=== PATIENT | male | born 1955 | race Caucasian/White ===

== ENCOUNTER 2017-01-22 16:23 | Emergency (ER) | payer OTHER ==
[2017-01-22 16:33] VITALS: O2SAT 94
[2017-01-22] MEDS ORDERED: Hydromorphone 1 mg/ml Ampule IM ONE (16:54)
[2017-01-22] MEDS ORDERED: Adacel Vial IM ONE ×2 (16:54→16:59)
[2017-01-22] MEDS ORDERED: Hydromorphone 1 mg/ml Ampule ONE (16:59)
--- NOTE | 2017-01-22 17:08 | ERPHSYRPT ---
- History of Present Illness Time Seen by Provider: 01/22/17 16:26 Source: patient Patient Subjective Stated Complaint: PT REPORTS WAS ON A STEP STOOL WHEN HE FELL OFF TRYING TO SCREW IN A LIGHTBULB-REPORTS PAIN TO LEFT KNEE ET LOWER LEG- DENIES HITTING HEAD-DENEIS LOC Triage Nursing Assessment: PT PINK WARM ET DRY-SEVERAL SORES NOTED TO LOWER LEGS -SUPERFICIAL ABRASION NOTED TO LEFT KNEE WITH BLEEDING CONTROLLED DIRECTOR OF MIDWIFERY/STAFF MIDWIFE-SWELLING NOTED Physician History: CC: fell Hx: 61 y/o patient of PIERRE Thomas. He fell on short ladder working on [employer] fan. Hurt left knee and leg. No LOC. No neck or back pain. He has hx of arthritis. Unsure last tetanus vaccine. No chest pain, shortness of breath, or abd pain. No N/T/W. Occurred: just prior to arrival Loss of Consciousness: no loss of consciousness Severity of Pain-Max: moderate Severity of Pain-Current: moderate Allergies/Adverse Reactions: No Known Drug Allergies Allergy (Unverified 01/22/17 16:28) Home Medications: Insulin Glargine [Lantus Insulin] 25 unit SQ HS 01/22/17 [History] Lisinopril 10 mg [Zestril 10 MG] 0 mg PO DAILY 01/22/17 [History] Metformin HCl [Glucophage] 1,000 mg PO BID 01/22/17 [History] Pregabalin [Lyrica] 50 mg PO TID 01/22/17 [History] Hx Tetanus, Diphtheria Vaccination/Date Given: No Hx Influenza Vaccination/Date Given: Yes Hx Pneumococcal Vaccination/Date Given: No Immunizations Up to Date: Yes - Review of Systems Constitutional: No Symptoms Respiratory: No Dyspnea Cardiac: No Chest Pain, No Syncope Abdominal/Gastrointestinal: No Abdominal Pain, No Nausea, No Vomiting Musculoskeletal: Joint Pain (left knee), No Back Pain, No Neck Pain Skin: No Rash Neurological: No Focal Weakness, No Headache, No Parasthesia All Other Systems: Reviewed and Negative - Past Medical History Pertinent Past Medical History: Yes Cardiac History: Hypertension Endocrine Medical History: Diabetes Type II - Past Surgical History Past Surgical History: No - Social History Smoking Status: Never smoker Exposure to second hand smoke: No Drug Use: none Patient Lives Alone: No - Nursing Vital Signs Nursing Vital Signs: Initial Vital Signs Temperature 97.7 F Temperature Source Oral Pulse Rate 106 Respiratory Rate 20 Blood Pressure [Right Arm] 139/73 Pain Intensity 9 - [place] Coma Score Best Eye Response (Daysi): (4) open spontaneously Best Verbal Response ([place]): (5) oriented Best Motor Response (Daysi): (6) obeys commands Daysi Total: 15 - Physical Exam General Appearance: alert Head Injury: no evidence of injury Eye Exam: PERRL/EOMI ENT Exam: airway nml Neck Exam: supple, No limited range of motion, No mid-line tenderness Respiratory/Chest Exam: normal breath sounds, No chest tenderness Cardiovascular Exam: normal heart sounds, regular rate/rhythm Gastrointestinal Exam: soft, No tenderness, No distention Extremity Exam: tenderness (left knee, patella, and prox lower leg. No hip, arm , or ankle tenderness.) Neurologic Exam: alert, oriented x 3, cooperative, sensation nml, No motor deficits Skin Exam: warm, dry, other (abrasions left knee) SpO2 Interpretation: normal SpO2: 94 Oxygen Delivery: Room Air - Course Nursing assessment & vital signs reviewed: Yes - Radiology Exams left knee/lower leg X-ray Interpretation: Reviewed by me, No Fracture Ordered Tests: Active Orders 24 hr Category Date Time Status Silas Bandage Application -[facility] STAT Care 01/22/17 17:27 Active Wound Care STAT Care 01/22/17 16:54 Active KNEE (3 VIEWS) Stat Exams 01/22/17 16:55 Ordered LOWER LEG Stat Exams 01/22/17 16:55 Ordered Medication Summary Discontinued Medications Generic Name Dose Route Start Last Admin Trade Name Freq PRN Reason Stop Dose Admin Diphtheria/Tetanus/Acell Pertussis 0.5 ml 01/22/17 16:54 01/22/17 17:03 Adacel Vial IM 01/22/17 16:55 0.5 ml .ONCE ONE Administration Diphtheria/Tetanus/Acell Pertussis Confirm 01/22/17 16:59 Adacel Vial Administered 01/22/17 17:00 Dose 0.5 ml IM .STK-MED ONE Hydromorphone HCl 1 mg 01/22/17 16:54 01/22/17 17:03 Hydromorphone 1 Mg/Ml Ampule IM 01/22/17 16:55 1 mg STAT ONE Administration Hydromorphone HCl Confirm 01/22/17 16:59 Hydromorphone 1 Mg/Ml Ampule Administered 01/22/17 17:00 Dose 1 mg .ROUTE .STK-MED ONE - Progress Progress Note: 01/22/17 17:28 He has walker and cane at home. Will use silas, ice, rest. Instr given. Rx norco as he has kidney disease. Counseled pt/family regarding: diagnosis, need for follow-up, rad results - Departure Time of Disposition: 17:28 Departure Disposition: Home Clinical Impression: Contusion of left knee Qualifiers: Encounter type: initial encounter Qualified Code(s): S80.02XA - Contusion of left knee, initial encounter Fall from ladder Qualifiers: Encounter type: initial encounter Qualified Code(s): W11.XXXA - Fall on and from ladder, initial encounter Condition: Stable Critical Care Time: No Referrals: MILAN THOMAS [Primary Care Provider] - Instructions: Prevent Falls, Contusion Additional Instructions: Keep abrasion clean and dry. Ice packs off and on. Silas wrap left knee. Use walker or cane. Follow up with PIERRE Thomas. No driving while taking norco. Stay with family today. Rx norco for pain. Prescriptions: Hydrocodone Bit/Acetaminophen [[place] 5-325 Tablet] 1 each PO Q6H PRN PRN #20 tablet PRN Reason: Pain
[2017-01-22 17:30] VITALS: BP 141/69; PULSE 100
--- NOTE | 2017-01-22 21:31 | XRAY ---
Indication: Pain following fall. Comparison: None 4 views of the left knee demonstrates minimal medial degenerative joint space narrowing/spurring. Patellofemoral articulation symmetric. No other bony, articular, or soft tissue abnormalities.
--- NOTE | 2017-01-22 21:33 | XRAY ---
Indication: Pain following fall. Comparison: None 2 views of the left lower leg demonstrates faint vascular calcifications and multiple plantar foot foreign bodies. No other bony, articular, or soft tissue abnormalities.
== END 2017-01-22 17:35 | disposition home or self-care (01) ==
LOC: ED 16:23
DX: S80.02XA Contusion of left knee, initial encounter (principal); W11.XXXA Fall on and from ladder, initial encounter; M25.562 Pain in left knee; S80.212A Abrasion, left knee, initial encounter; I10 Essential (primary) hypertension; E11.9 Type 2 diabetes mellitus without complications; Z79.84 Long term (current) use of oral hypoglycemic drugs; Z79.4 Long term (current) use of insulin
CPT/HCPCS: 73562; 73590; 90471; 90715; 96372; 99284; J1170

== ENCOUNTER 2018-05-04 22:36 | Emergency (ER) | payer OTHER ==
[2018-05-04 23:01] VITALS: O2SAT 96
--- NOTE | 2018-05-04 23:14 | ERPHSYRPT ---
- History of Present Illness Time Seen by Provider: 05/04/18 23:00 Historian: patient, family Patient Subjective Stated Complaint: pain in abdomen that radiates to the right side Triage Nursing Assessment: Pt c/o of pain in upper medial abdomen which radiates to the upper and lower right quadrants with more pain in the lower quadrant with palpation, denies any bowel issues, vomited x2, BP 162/97, rates pain 10 Physician History: 62 y/o iddm white male presents with mid abd pain which radiates to both upper and lower quadrants. right lower quadrant most pain. pt vomited twice. pt ate chicken livers at approx 1300 on 05/04/18. pt has no h/o abd surgeries. Timing/Duration: today Activities at Onset: none Quality: sharpness Abdominal Pain Onset Location: RUQ, RLQ, periumbilical Severity of Pain-Max: moderate Severity of Pain-Current: moderate Modifying Factors: Improves With: nothing, vomiting Associated Symptoms: loss of appetite, nausea, vomiting Allergies/Adverse Reactions: No Known Drug Allergies Allergy (Verified 05/04/18 23:01) Home Medications: Insulin Glargine [Lantus Insulin] 20 unit SQ HS 01/22/17 [History] Lisinopril 10 mg [Zestril 10 MG] 0 mg PO DAILY 01/22/17 [History] Metformin HCl [Glucophage] 1,000 mg PO BID 01/22/17 [History] Simvastatin 20Mg [Zocor 20Mg] 20 mg PO DAILY 05/04/18 [History] Hx Tetanus, Diphtheria Vaccination/Date Given: No Hx Influenza Vaccination/Date Given: Yes Hx Pneumococcal Vaccination/Date Given: No - Review of Systems Constitutional: No Symptoms, No Fever, No Chills Eyes: No Symptoms Ears, Nose, & Throat: No Symptoms Respiratory: No Symptoms, No Cough, No Dyspnea, No Stridor, No Wheezing Cardiac: No Symptoms Abdominal/Gastrointestinal: Abdominal Pain, Nausea, Vomiting, Appetite Changes, No Diarrhea Genitourinary Symptoms: No Symptoms, No Dysuria, No Frequency, No Hematuria Musculoskeletal: No Symptoms Skin: No Symptoms Neurological: No Symptoms, No Dizziness, No Focal Weakness, No Gait Changes Psychological: No Symptoms Endocrine: No Symptoms, No Polydipsia Hematologic/Lymphatic: No Symptoms Immunological/Allergic: No Symptoms All Other Systems: Reviewed and Negative - Past Medical History Pertinent Past Medical History: Yes Neurological History: No Pertinent History ENT History: No Pertinent History Cardiac History: High Cholesterol, Hypertension Respiratory History: No Pertinent History Endocrine Medical History: Diabetes Type II Musculoskeletal History: No Pertinent History GI Medical History: No Pertinent History History: No Pertinent History Psycho-Social History: No Pertinent History Male Reproductive Disorders: No Pertinent History - Past Surgical History Past Surgical History: No Neuro Surgical History: No Pertinent History Cardiac: No Pertinent History Respiratory: No Pertinent History Gastrointestinal: No Pertinent History Genitourinary: No Pertinent History Musculoskeletal: No Pertinent History Male Surgical History: No Pertinent History - Social History Smoking Status: Current every day smoker How long have you smoked: since 14 y Exposure to second hand smoke: No Drug Use: none Patient Lives Alone: No - Nursing Vital Signs Nursing Vital Signs: Initial Vital Signs Temperature 97.8 F 05/04/18 22:52 Pulse Rate 96 H 05/04/18 22:52 Blood Pressure 162/97 05/04/18 22:52 O2 Sat by Pulse Oximetry 96 05/04/18 22:52 Pain Scale Pain Intensity 7 - Physical Exam General Appearance: mild distress, alert, anxiety Eye Exam: PERRL/EOMI, eyes nml inspection Ears, Nose, Throat Exam: normal ENT inspection Neck Exam: normal inspection, non-tender, supple, full range of motion Respiratory Exam: normal breath sounds, lungs clear, airway intact, No chest tenderness, No respiratory distress, No wheezing, No stridor Cardiovascular Exam: regular rate/rhythm, normal heart sounds, normal peripheral pulses Gastrointestinal/Abdomen Exam: soft, normal bowel sounds, tenderness, guarding, No distention, No rebound Rectal Exam: deferred Back Exam: normal inspection Extremity Exam: normal inspection Neurologic Exam: alert, oriented x 3, cooperative, biological scientist II-XII nml as tested, normal mood/affect, nml cerebellar function Skin Exam: normal color, warm, dry Lymphatic Exam: No adenopathy SpO2 Interpretation: normal SpO2: 96 Oxygen Delivery: Room Air - Course Nursing assessment & vital signs reviewed: Yes Ordered Tests: Active Orders 24 hr Category Date Time Status ABDOMEN AND PELVIS W CONTRAST [CT] Stat Exams 05/04/18 23:17 Taken AMYLASE Stat Lab 05/04/18 23:20 Completed CBC W DIFF Stat Lab 05/04/18 23:20 Completed CMP Stat Lab 05/04/18 23:20 Completed CULTURE,URINE Stat Lab 05/04/18 23:35 Received LIPASE Stat Lab 05/04/18 23:20 Completed Lactic Acid Stat Lab 05/04/18 23:20 Completed UA W/ MICROSCOPIC Stat Lab 05/04/18 23:35 Completed Medication Summary Discontinued Medications Generic Name Dose Route Start Last Admin Trade Name Luis Eq PRN Reason Stop Dose Admin Hydromorphone HCl 0.5 mg 05/04/18 23:17 05/04/18 23:28 Hydromorphone 1 Mg/Ml Ampule IV 05/04/18 23:18 0.5 mg STAT ONE Administration Hydromorphone HCl Confirm 05/04/18 23:26 Hydromorphone 1 Mg/Ml Ampule Administered 05/04/18 23:27 Dose 1 mg .ROUTE .STK-MED ONE Sodium Chloride 1,000 mls @ 999 mls/hr 05/04/18 23:17 05/04/18 23:27 Sodium Chloride 0.9% 1000 Ml IV 05/05/18 00:17 999 mls/hr .Q1H1M STA Administration Sodium Chloride Confirm 05/04/18 23:26 Sodium Chloride 0.9% 1000 Ml Administered 05/04/18 23:27 Dose 1,000 mls @ ud .ROUTE .STK-MED ONE Ondansetron HCl 4 mg 05/04/18 23:17 05/04/18 23:28 Zofran 4 Mg/2 Ml Vial IV 05/04/18 23:18 4 mg STAT ONE Administration Ondansetron HCl Confirm 05/04/18 23:25 Zofran 4 Mg/2 Ml Vial Administered 05/04/18 23:26 Dose 4 mg .ROUTE .STK-MED ONE Lab/Rad Data: Laboratory Result Diagrams 05/04/18 23:20 05/04/18 23:20 Laboratory Results 05/04/18 05/04/18 05/04/18 Range/Units 23:35 23:20 23:20 WBC (4.0-10.5) K/mm3 RBC (4.1-5.6) M/mm3 Hgb (12.5-18.0) gm/dl Hct (42-50) % MCV (78-100) fl MCH (26-32) pg MCHC (32-36) g/dl RDW (11.5-14.0) % Plt Count (150-450) K/mm3 MPV (6-9.5) fl Gran % (36.0-66.0) % Eos # (Auto) (0-0.5) Absolute Lymphs (auto) (1.0-4.6) Absolute Monos (auto) (0.0-1.3) Lymphocytes % (24.0-44.0) % Monocytes % (0.0-12.0) % Eosinophils % (0.00-5.0) % Basophils % (0.0-0.4) % Absolute Granulocytes (1.4-6.9) Basophils # (0-0.4) Sodium 142 (137-145) mmol/L Potassium 4.0 (3.5-5.1) mmol/L Chloride 106 (98-107) mmol/L Carbon Dioxide 28 (22-30) mmol/L Anion Gap 12.5 (5-15) MEQ/L BUN 14 (9-20) mg/dL Creatinine 0.57 L (0.66-1.25) mg/dL Estimated GFR > 60.0 ML/MIN Glucose 149 H (74-106) mg/dL Lactic Acid 1.1 (0.4-2.0) Calcium 9.1 (8.4-10.2) mg/dL Total Bilirubin 0.40 (0.2-1.3) mg/dL AST 15 L (17-59) U/L ALT 16 (0-50) U/L Alkaline Phosphatase 126 (38-126) U/L Serum Total Protein 5.9 L (6.3-8.2) g/dL Albumin 3.5 (3.5-5.0) g/dL Amylase 37 (30-110) U/L Lipase 95 (23-300) U/L Ur Collection Type VOID Urine Color YELLOW (YELLOW) Urine Appearance CLEAR (CLEAR) Urine pH 6.0 (5-6) Ur Specific [place] 1.020 (1.005-1.025) Urine Protein 500 (Negative) Urine Ketones NEGATIVE (NEGATIVE) Urine Blood 50 (0-5) Neymar/ul Urine Nitrite NEGATIVE (NEGATIVE) Urine Bilirubin NEGATIVE (NEGATIVE) Urine Urobilinogen NORMAL (0-1) mg/dL Ur Leukocyte Esterase NEGATIVE (NEGATIVE) Urine Microscopic RBC 2-5 (0-2) /HPF Urine Microscopic WBC 0-2 (0-5) /HPF Urine Bacteria RARE (NEGATIVE) /HPF Hyaline Casts 0-2 (0-2) /LPF Urine Mucus SLIGHT (NEGATIVE) /HPF Urine Culture Reflexed YES (NO) Urine Glucose NEGATIVE (NEGATIVE) mg/dL Specimen Received 05/04 1150 05/04/18 Range/Units 23:20 WBC 9.3 (4.0-10.5) K/mm3 RBC 4.69 (4.1-5.6) M/mm3 Hgb 13.9 (12.5-18.0) gm/dl Hct 41.1 L (42-50) % MCV 87.6 (78-100) fl MCH 29.6 (26-32) pg MCHC 33.8 (32-36) g/dl RDW 14.0 (11.5-14.0) % Plt Count 197 (150-450) K/mm3 MPV 11.7 H (6-9.5) fl Gran % 82.5 H (36.0-66.0) % Eos # (Auto) 0.06 (0-0.5) Absolute Lymphs (auto) 1.08 (1.0-4.6) Absolute Monos (auto) 0.48 (0.0-1.3) Lymphocytes % 11.6 L (24.0-44.0) % Monocytes % 5.2 (0.0-12.0) % Eosinophils % 0.6 (0.00-5.0) % Basophils % 0.1 (0.0-0.4) % Absolute Granulocytes 7.69 H (1.4-6.9) Basophils # 0.01 (0-0.4) Sodium (137-145) mmol/L Potassium (3.5-5.1) mmol/L Chloride (98-107) mmol/L Carbon Dioxide (22-30) mmol/L Anion Gap (5-15) MEQ/L BUN (9-20) mg/dL Creatinine (0.66-1.25) mg/dL Estimated GFR ML/MIN Glucose (74-106) mg/dL Lactic Acid (0.4-2.0) Calcium (8.4-10.2) mg/dL Total Bilirubin (0.2-1.3) mg/dL AST (17-59) U/L ALT (0-50) U/L Alkaline Phosphatase (38-126) U/L Serum Total Protein (6.3-8.2) g/dL Albumin (3.5-5.0) g/dL Amylase (30-110) U/L Lipase (23-300) U/L Ur Collection Type Urine Color (YELLOW) Urine Appearance (CLEAR) Urine pH (5-6) Ur Specific [place] (1.005-1.025) Urine Protein (Negative) Urine Ketones (NEGATIVE) Urine Blood (0-5) Neymar/ul Urine Nitrite (NEGATIVE) Urine Bilirubin (NEGATIVE) Urine Urobilinogen (0-1) mg/dL Ur Leukocyte Esterase (NEGATIVE) Urine Microscopic RBC (0-2) /HPF Urine Microscopic WBC (0-5) /HPF Urine Bacteria (NEGATIVE) /HPF Hyaline Casts (0-2) /LPF Urine Mucus (NEGATIVE) /HPF Urine Culture Reflexed (NO) Urine Glucose (NEGATIVE) mg/dL Specimen Received - Progress Progress Note: 05/05/18 01:52 pt states his pain is better but still present. reviewed ct scan results of possible early, mild acute pancreatitis Counseled pt/family regarding: lab results, diagnosis, need for follow-up, rad results - Departure Time of Disposition: 01:54 Departure Disposition: Home Clinical Impression: Acute pancreatitis Condition: Stable Critical Care Time: No Referrals: LIZET SANABRIA [Primary Care Provider] - Additional Instructions: clear liquids for 24 hours. follow up with primary doctor for further management. return to ER if symptos worsen. avoid fatty, greasy, and spicy foods Prescriptions: Ondansetron HCl [Zofran] 4 mg PO TID PRN #10 tablet PRN Reason: Nausea/Vomiting
[2018-05-04] MEDS ORDERED: Hydromorphone 1 mg/ml Ampule IV ONE (23:17)
[2018-05-04] MEDS ORDERED: Sodium Chloride 0.9% 1000 ML 1,000 ML IV STA (23:17)
[2018-05-04] MEDS ORDERED: Zofran 4 MG/2 ML VIAL IV ONE (23:17)
[2018-05-04] MEDS ORDERED: Zofran 4 MG/2 ML VIAL ONE (23:25)
[2018-05-04] MEDS ORDERED: Sodium Chloride 0.9% 1000 ML 1,000 ML ONE (23:26)
[2018-05-04] MEDS ORDERED: Hydromorphone 1 mg/ml Ampule ONE (23:26)
[2018-05-04 23:29] LABS: BASOPHIL % 0.1 % (0.0-0.4); Basophil (Absolute #) 0.01 (0-0.4); Eosinophil % 0.6 % (0.00-5.0); Eosinophil (Absolute #) 0.06 (0-0.5); Granulocyte Absolute (ANC) 7.69 (1.4-6.9); Granulocytes % 82.5 % (36.0-66.0); Hematocrit 41.1 % (42-50); Hemoglobin 13.9 gm/dl (12.5-18.0); Lymphocyte (Absolute #) 1.08 (1.0-4.6); Lymphocytes % 11.6 % (24.0-44.0); Mean Cell Volume 87.6 fl (78-100); Mean Corpuscular Hemoglobin 29.6 pg (26-32); Mean Corpuscular Hgb Concent. 33.8 g/dl (32-36); Mean Platelet Volume 11.7 fl (6-9.5); Monocyte (Absolute #) 0.48 (0.0-1.3); Monocytes % 5.2 % (0.0-12.0); Platelet Count 197 K/mm3 (150-450); Red Blood Count 4.69 M/mm3 (4.1-5.6); White Blood Count 9.3 K/mm3 (4.0-10.5)
[2018-05-04 23:41] LABS: ALBUMIN 3.5 g/dL (3.5-5.0); ALKALINE PHOSPHATASE 126 U/L (38-126); AMYLASE 37 U/L (30-110); ANION GAP 12.5 MEQ/L (5-15); BLOOD UREA NITROGEN 14 mg/dL (9-20); CHLORIDE 106 mmol/L (98-107); Calcium 9.1 mg/dL (8.4-10.2); Carbon Dioxide 28 mmol/L (22-30); Creatinine 1 0.57 mg/dL (0.66-1.25); Glucose 149 mg/dL (74-106); LIPASE 95 U/L (23-300); SGOT/AST 15 U/L (17-59); SGPT/ALT 16 U/L (0-50); SODIUM 142 mmol/L (137-145); Total Protein 5.9 g/dL (6.3-8.2)
[2018-05-04 23:54] LABS: Appearance CLEAR (CLEAR); Bilirubin NEGATIVE (NEGATIVE); Glucose NEGATIVE (NEGATIVE); Ketones NEGATIVE (NEGATIVE); Leukocyte Esterase NEGATIVE (NEGATIVE); Nitrite NEGATIVE (NEGATIVE); Urobilinogen NORMAL mg/dL (0-1)
[2018-05-04 23:55] LABS: Blood 50 Ery/ul (0-5); Mucus SLIGHT /HPF (NEGATIVE); Protein,Urine Dip 500 (Negative)
[2018-05-04 23:56] LABS: Bacteria RARE /HPF (NEGATIVE); WBC 0-2 /HPF (0-5)
[2018-05-04 23:57] LABS: Hyaline Casts 0-2 /LPF (0-2)
[2018-05-05 01:53] VITALS: BP 162/96; PULSE 95
[2018-05-05] MEDS ORDERED: Hydromorphone 1 mg/ml Ampule IV ONE (01:53)
[2018-05-05] MEDS ORDERED: Hydromorphone 1 mg/ml Ampule ONE (02:00)
--- NOTE | 2018-05-05 09:11 | XRAY ---
Indication: Right abdominal pain, nausea, and vomiting. Multiple contiguous axial images obtained through the abdomen and pelvis using 80 cc Isovue 370 contrast only. Comparison: None. Lung bases demonstrates mild bibasilar dependent atelectasis and right base calcified granuloma. Heart is not enlarged. Noncontrasted stomach and bowel loops appear nonobstructed. Normal appendix. No free fluid/air. There is mild diffuse scattered colonic fecal debris throughout. Spleen is enlarged measuring 14.3 cm in greatest axial dimension with calcified splenic granuloma. The head of the pancreas demonstrates minimal peripancreatic stranding concerning for pancreatitis. Remaining pancreatic head and uncinate process demonstrates a few punctate calcifications presumed from chronic pancreatitis. Remaining liver, gallbladder, pancreas, spleen, adrenal glands, kidneys, ureters, bladder, and aorta appear unremarkable. Mild aortoiliac calcifications. No AAA or pathologic retroperitoneal lymphadenopathy. Osseous structures intact with mild/moderate multilevel degenerative spondylosis. Small bilateral fatty inguinal hernias. Impression: 1. CT features favoring mild/early pancreatitis. No complications. A few chronic pancreatitis calcifications. 2. Fecal stasis without obstruction. 3. Incidental splenomegaly, small bilateral fatty inguinal hernias, and evidence for old granulomatous disease. Comment: Preliminary interpretation was made by [facility]. No critical discrepancy. CT DI 23.68
== END 2018-05-05 02:16 | disposition home or self-care (01) ==
LOC: ED 22:36
DX: K85.90 Acute pancreatitis without necrosis or infection, unspecified (principal); R11.2 Nausea with vomiting, unspecified; Z79.899 Other long term (current) drug therapy; E11.9 Type 2 diabetes mellitus without complications; Z79.4 Long term (current) use of insulin
CPT/HCPCS: 36415; 74177; 80053; 81000; 82150; 83605; 83690; 85025; 87086; 96360; 96374; 96375; 96376; 99284; J1170; J2405

== ENCOUNTER 2018-06-02 18:43 | Emergency (ER) | payer OTHER ==
[2018-06-02 18:57] VITALS: O2SAT 97
[2018-06-02] MEDS ORDERED: Adacel Vial IM ONE ×2 (19:06→19:11)
[2018-06-02] MEDS ORDERED: BACIGUENT PACKET TP ONE (19:07)
[2018-06-02] MEDS ORDERED: CLEOCIN 150 MG CAPSULE PO ONE (19:07)
[2018-06-02] MEDS ORDERED: BACIGUENT PACKET ONE (19:10)
[2018-06-02] MEDS ORDERED: CLEOCIN 150 MG CAPSULE ONE (19:10)
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
[2018-06-02 19:46] VITALS: BP 135/71; PULSE 85
== END 2018-06-02 19:43 | disposition home or self-care (01) ==
LOC: ED 18:43
DX: T25.221A Burn of second degree of right foot, initial encounter (principal); L03.115 Cellulitis of right lower limb; T52.0X1A Toxic effect of petroleum products, accidental (unintentional), initial encounter
CPT/HCPCS: 90471; 90715; 99283; A9270-GY

== ENCOUNTER 2018-10-06 12:36 | Inpatient (IN) | payer OTHER ==
[2018-10-06] MEDS ORDERED: DUONEB 0.5-3 MG/3 ml Neb IH ONE ×2 (12:46→12:51)
--- NOTE | 2018-10-06 12:51 | ERPHSYRPT ---
- History of Present Illness Time Seen by Provider: 10/06/18 12:48 Source: patient Exam Limitations: no limitations Physician History: 63 y/o obese white male with h/o diabetes, cadz and htn presents to ED with over one month h/o coughing and soa. pt is a smoker of cigarettes and states he quit smoking 3 days ago. pt denies cp. he denies abd pain. Timing/Duration: intermittent (for a month) Activities at Onset: none Severity of Dyspnea-Max: mild Severity of Dyspnea-Current: mild Possible Cause: occasional episodes Modifying Factors: Improves With: activity, oxygen (improves) Associated Symptoms: cough, No chest pain/discomfort Allergies/Adverse Reactions: No Known Drug Allergies Allergy (Verified 10/06/18 13:37) Home Medications: Insulin Glargine [Lantus Insulin] 20 unit SQ HS 01/22/17 [History] Metformin HCl [Glucophage] 1,000 mg PO BID 01/22/17 [History] Simvastatin 20Mg [Zocor 20Mg] 20 mg PO DAILY 05/04/18 [History] Aspirin [Aspirin EC] 325 mg PO DAILY 10/06/18 [History] Carvedilol 12.5 mg [Coreg 12.5 mg] 12.5 mg PO BID 10/06/18 [History] Glipizide [Glipizide ER] 10 mg PO DAILY 10/06/18 [History] Hydrochlorothiazide 25 mg [hydroDIURIL 25 MG] 25 mg PO DAILY 10/06/18 [ History] Isosorbide Mononitrate 30 mg [Imdur 30 MG] 30 mg PO DAILY 10/06/18 [History ] Lisinopril [Zestril] 40 mg PO DAILY 10/06/18 [History] Hx Tetanus, Diphtheria Vaccination/Date Given: No Hx Influenza Vaccination/Date Given: Yes Hx Pneumococcal Vaccination/Date Given: No - Review of Systems Constitutional: No Symptoms Eyes: No Symptoms Ears, Nose, & Throat: No Symptoms Respiratory: Cough, Dyspnea Cardiac: No Symptoms, No Chest Pain, No Palpitations, No Syncope Abdominal/Gastrointestinal: No Symptoms, Abdominal Pain, Nausea, Vomiting, Diarrhea Genitourinary Symptoms: No Symptoms, No Dysuria, No Frequency, No Hematuria Musculoskeletal: No Symptoms Skin: No Symptoms Neurological: No Symptoms Psychological: No Symptoms - Past Medical History Pertinent Past Medical History: Yes Neurological History: No Pertinent History ENT History: No Pertinent History Cardiac History: High Cholesterol, Hypertension Respiratory History: No Pertinent History Endocrine Medical History: Diabetes Type II Musculoskeletal History: No Pertinent History GI Medical History: No Pertinent History History: No Pertinent History Psycho-Social History: No Pertinent History Male Reproductive Disorders: No Pertinent History - Past Surgical History Past Surgical History: Yes Neuro Surgical History: No Pertinent History Cardiac: No Pertinent History Respiratory: No Pertinent History Gastrointestinal: No Pertinent History Genitourinary: No Pertinent History Musculoskeletal: No Pertinent History Male Surgical History: No Pertinent History - Social History Smoking Status: Never smoker How long have you smoked: since 14 y Exposure to second hand smoke: No Drug Use: none Patient Lives Alone: No - Nursing Vital Signs Nursing Vital Signs: Initial Vital Signs Temperature 98.5 F 10/06/18 12:36 Pulse Rate 68 10/06/18 12:36 Respiratory Rate 28 H 10/06/18 12:36 Blood Pressure 107/64 10/06/18 12:36 O2 Sat by Pulse Oximetry 87 L 10/06/18 12:36 Pain Scale Pain Intensity 0 - Physical Exam General Appearance: mild distress, alert, obese Eye Exam: PERRL/EOMI, eyes nml inspection Ears, Nose, Throat Exam: hearing grossly normal Neck Exam: normal inspection, non-tender, supple, full range of motion Respiratory Exam: normal breath sounds, lungs clear, respiratory distress (mild) , airway intact, No chest tenderness, No accessory muscle use, No rhonchi, No wheezing, No stridor Cardiovascular/Chest Exam: normal heart sounds, regular rate/rhythm, murmur Abdominal/Gastrointestinal Exam: soft, normal bowel sounds, No tenderness, No guarding, No rebound Rectal Exam: not done Extremity Exam: non-tender, normal range of motion, normal inspection Neurologic Exam: alert, oriented x 3, cooperative, chair mechanic II-XII nml as tested Skin Exam: normal color, warm, dry Lymphatic Exam: No adenopathy SpO2 Interpretation: normal - Course Nursing assessment & vital signs reviewed: Yes Ordered Tests: Active Orders 24 hr Category Date Time Status Weaver Dobby Loom STAT Care 10/06/18 12:53 Active EKG-ER Only STAT Care 10/06/18 12:52 Active IV Insertion STAT Care 10/06/18 12:52 Active Pulse Oximetry (ED) STAT Care 10/06/18 12:52 Active CHEST 1 VIEW (PORTABLE) Stat Exams 10/06/18 12:53 Completed CHEST WITH CONTRAST [CT] Stat Exams 10/06/18 13:45 Completed CBC W DIFF Stat Lab 10/06/18 13:09 Completed CMP Stat Lab 10/06/18 13:09 Completed D-DIMER QUANTITATION Stat Lab 10/06/18 13:09 Completed NT PRO BNP Stat Lab 10/06/18 13:09 Completed PROTIME WITH INR Stat Lab 10/06/18 13:09 Completed TROPONIN Q3H Lab 10/06/18 13:09 Completed TROPONIN Q3H Lab 10/07/18 01:00 Ordered Peak Expiratory Flow Rate ONCE RT 10/06/18 12:52 Active Respiratory Nebulizer STAT RT 10/06/18 12:52 Completed Respiratory Therapy Assessment DAILY RT 10/06/18 12:52 Active Transfer Order Routine Transfer 10/06/18 Ordered Medication Summary Discontinued Medications Generic Name Dose Route Start Last Admin Trade Name Freq PRN Reason Stop Dose Admin Albuterol/Ipratropium Confirm 10/06/18 12:46 Duoneb 0.5-3 Mg/3 Ml Neb Administered 10/06/18 12:47 Dose 3 ml IH .STK-MED ONE Albuterol/Ipratropium 3 ml 10/06/18 12:51 10/06/18 12:48 Duoneb 0.5-3 Mg/3 Ml Neb IH 10/06/18 12:52 3 ml STAT ONE Administration Enoxaparin Sodium 120 mg 10/06/18 16:14 Enoxaparin Sodium SQ 10/06/18 16:15 STAT STA Methylprednisolone Sodium Succinate 125 mg 10/06/18 12:52 10/06/18 13:34 Solu-Medrol 125 Mg IV 10/06/18 12:53 125 mg STAT ONE Administration Methylprednisolone Sodium Succinate Confirm 10/06/18 13:33 Solu-Medrol 125 Mg Administered 10/06/18 13:34 Dose 125 mg .ROUTE .STK-MED ONE Lab/Rad Data: Laboratory Result Diagrams 10/06/18 13:09 10/06/18 13:09 Laboratory Results 12/27/18 12/27/18 12/27/18 Range/Units 13:09 13:09 13:09 WBC (4.0-10.5) K/mm3 RBC (4.1-5.6) M/mm3 Hgb (12.5-18.0) gm/dl Hct (42-50) % MCV (78-100) fl MCH (26-32) pg MCHC (32-36) g/dl RDW (11.5-14.0) % Plt Count (150-450) K/mm3 MPV (6-9.5) fl Gran % (36.0-66.0) % Eos # (Auto) (0-0.5) Absolute Lymphs (auto) (1.0-4.6) Absolute Monos (auto) (0.0-1.3) Lymphocytes % (24.0-44.0) % Monocytes % (0.0-12.0) % Eosinophils % (0.00-5.0) % Basophils % (0.0-0.4) % Absolute Granulocytes (1.4-6.9) Basophils # (0-0.4) PT 13.2 H (8.83-12.87) SECONDS INR 1.13 (0.8-3.0) D-Dimer 736 H* (215-500) ng/mL Sodium 143 (137-145) mmol/L Potassium 4.1 (3.5-5.1) mmol/L Chloride 103 (98-107) mmol/L Carbon Dioxide 31 H (22-30) mmol/L Anion Gap 14.0 (5-15) MEQ/L BUN 24 H (9-20) mg/dL Creatinine 0.90 (0.66-1.25) mg/dL Estimated GFR > 60.0 ML/MIN Glucose 91 (74-106) mg/dL Calcium 8.7 (8.4-10.2) mg/dL Total Bilirubin 0.40 (0.2-1.3) mg/dL AST 25 (17-59) U/L ALT 23 (0-50) U/L Alkaline Phosphatase 107 (38-126) U/L Troponin I < 0.012 (0.000-0.034) ng/mL NT-Pro-B Natriuret Pep 4560 H (0-900) pg/mL Serum Total Protein 6.6 (6.3-8.2) g/dL Albumin 3.5 (3.5-5.0) g/dL Slides for Path Review 10/06/18 Range/Units 13:09 WBC 4.9 (4.0-10.5) K/mm3 RBC 3.90 L (4.1-5.6) M/mm3 Hgb 11.1 L (12.5-18.0) gm/dl Hct 35.5 L (42-50) % MCV 91.0 (78-100) fl MCH 28.4 (26-32) pg MCHC 31.3 L (32-36) g/dl RDW 13.8 (11.5-14.0) % Plt Count 149 L (150-450) K/mm3 MPV 11.0 H (6-9.5) fl Gran % 81.3 H (36.0-66.0) % Eos # (Auto) 0.01 (0-0.5) Absolute Lymphs (auto) 0.54 L (1.0-4.6) Absolute Monos (auto) 0.35 (0.0-1.3) Lymphocytes % 11.1 L (24.0-44.0) % Monocytes % 7.2 (0.0-12.0) % Eosinophils % 0.2 (0.00-5.0) % Basophils % 0.2 (0.0-0.4) % Absolute Granulocytes 3.97 (1.4-6.9) Basophils # 0.01 (0-0.4) PT (8.83-12.87) SECONDS INR (0.8-3.0) D-Dimer (215-500) ng/mL Sodium (137-145) mmol/L Potassium (3.5-5.1) mmol/L Chloride (98-107) mmol/L Carbon Dioxide (22-30) mmol/L Anion Gap (5-15) MEQ/L BUN (9-20) mg/dL Creatinine (0.66-1.25) mg/dL Estimated GFR ML/MIN Glucose (74-106) mg/dL Calcium (8.4-10.2) mg/dL Total Bilirubin (0.2-1.3) mg/dL AST (17-59) U/L ALT (0-50) U/L Alkaline Phosphatase (38-126) U/L Troponin I (0.000-0.034) ng/mL NT-Pro-B Natriuret Pep (0-900) pg/mL Serum Total Protein (6.3-8.2) g/dL Albumin (3.5-5.0) g/dL Slides for Path Review YES - Progress Progress: improved, re-examined Air Movement: good Progress Note: 10/06/18 16:[address] chest-tiny nonoccludingright lower lobe pulmonary emboli. bilat interstitial alveolar opacities. L>R. spoke with dr. barnett covering for dr. joya. i reviewed pt hx, condition, lab , xray results. he accepts pt for admission. hold antibx for now, lotensin 10mg po daily, blood cultures if T>101 F Blood Culture(s) Obtained: No Antibiotics given: No Discussed with : Beth Will see patient in: hospital (full admit) Counseled pt/family regarding: lab results, diagnosis, rad results - Departure Time of Disposition: 16:13 Departure Disposition: In-patient Admission Clinical Impression: Pulmonary embolism, Pneumonitis, CHF (congestive heart failure) Condition: Stable Critical Care Time: Yes Critical Care Time(excluding separately billable procedures): 30-74 minutes Referrals: LIZET JOYA [Primary Care Provider] - Instructions: Heart Failure
[2018-10-06] MEDS ORDERED: solu-MEDROL 125 MG IV ONE (12:52)
[2018-10-06 13:12] LABS: BASOPHIL % 0.2 % (0.0-0.4); Basophil (Absolute #) 0.01 (0-0.4); Eosinophil % 0.2 % (0.00-5.0); Eosinophil (Absolute #) 0.01 (0-0.5); Granulocyte Absolute (ANC) 3.97 (1.4-6.9); Granulocytes % 81.3 % (36.0-66.0); Hematocrit 35.5 % (42-50); Hemoglobin 11.1 gm/dl (12.5-18.0); Lymphocyte (Absolute #) 0.54 (1.0-4.6); Lymphocytes % 11.1 % (24.0-44.0); Mean Corpuscular Hgb Concent. 31.3 g/dl (32-36); Monocyte (Absolute #) 0.35 (0.0-1.3); Monocytes % 7.2 % (0.0-12.0); Platelet Count 149 K/mm3 (150-450); Red Cell Distribution Width 13.8 % (11.5-14.0); White Blood Count 4.9 K/mm3 (4.0-10.5)
[2018-10-06 13:14] LABS: Mean Corpuscular Hemoglobin 28.4 pg (26-32)
[2018-10-06 13:18] LABS: INR 1.13 (0.8-3.0)
--- NOTE | 2018-10-06 13:22 | XRAY ---
Indication: Cough and congestion one month. Comparison: May 23, 2009. Portable apical lordotic chest less inflated today accentuating the cardiopulmonary structures. Stable right base calcified granuloma. No focal infiltrate, consolidation, or large effusion. Heart is not enlarged. Bony thorax intact again with mild degenerative changes. Impression: Nonacute underinflated chest with chronic features.
[2018-10-06 13:31] LABS: ALBUMIN 3.5 g/dL (3.5-5.0); ALKALINE PHOSPHATASE 107 U/L (38-126); BLOOD UREA NITROGEN 24 mg/dL (9-20); CHLORIDE 103 mmol/L (98-107); Calcium 8.7 mg/dL (8.4-10.2); Carbon Dioxide 31 mmol/L (22-30); Glucose 91 mg/dL (74-106); NT PRO BNP 4560 pg/mL (0-900); Potassium 4.1 mmol/L (3.5-5.1); SGOT/AST 25 U/L (17-59); SGPT/ALT 23 U/L (0-50); SODIUM 143 mmol/L (137-145); Total Protein 6.6 g/dL (6.3-8.2)
[2018-10-06] MEDS ORDERED: solu-MEDROL 125 MG ONE (13:33)
--- NOTE | 2018-10-06 14:53 | XRAY ---
Indication: Productive cough. Short of breath. Elevated d-dimer. Multiple contiguous axial images obtained through the chest using 100 cc Isovue 370 contrast and PE protocol. Comparison: None There is good opacification of the pulmonary arteries to include the lobar and segmental branches. Tiny nonoccluding pulmonary emboli seen in the right lower lobe branch. Heart is not enlarged. Aorta is minimally arteriosclerotic without aneurysm/dissection. Several small mediastinal lymph nodes, largest in the AP window measuring 1.3 x 2 cm. Subcarinal and right infrahilar calcified nodes. Examination of the lung parenchyma demonstrates patchy lower lobe interstitial alveolar opacities, left greater than right. Much lesser subtle patchy interstitial alveolar opacities in the right upper lobe. No effusion. Elsewhere bibasilar dependent atelectasis and right lower lobe calcified granulomas. Bony thorax intact with mild degenerative changes throughout the spine. Limited upper abdomen demonstrates mild fatty liver and splenic calcified granuloma. Impression: 1. Tiny nonoccluding right lower lobe pulmonary emboli. No distal infarct. 2. Bilateral interstitial alveolar opacities greatest in the left lower lobe as detailed. Rule out pneumonitis. 3. Multiple small mediastinal lymph nodes possibly reactive or related to old granulomatous disease as there is evidence elsewhere. 4. Fatty liver. CT DI 23.69
[2018-10-06 15:11] LABS: Slide Review 1 YES
[2018-10-06] MEDS ORDERED: ENOXAPARIN SODIUM SQ STA (16:14)
[2018-10-06] MEDS ORDERED: ENOXAPARIN SODIUM SQ ONE (16:45)
[2018-10-06] MEDS ORDERED: DUONEB 0.5-3 MG/3 ml Neb IH PRN (17:34)
[2018-10-06] MEDS: Lasix 40 MG/4 ML IV SCH (18:25)
[2018-10-06] MEDS: Lantus Insulin SQ SCH (21:30)
[2018-10-06] MEDS: COREG 12.5 MG PO SCH (21:30)
[2018-10-06] MEDS ORDERED: NON-FORMULARY ITEM (Metformin Hcl [Glucophage] 1,000 MG) PO SCH (22:00)
[2018-10-06] MEDS: Sodium Chloride 0.9% 10 ML FLUSH Syringe IV SCH (23:53)
[2018-10-07 05:49] LABS: BASOPHIL % 0.2 % (0.0-0.4); Basophil (Absolute #) 0.01 (0-0.4); Eosinophil (Absolute #) 0 (0-0.5); Granulocyte Absolute (ANC) 3.57 (1.4-6.9); Granulocytes % 83.2 % (36.0-66.0); Hematocrit 36.4 % (42-50); Hemoglobin 11.3 gm/dl (12.5-18.0); Lymphocyte (Absolute #) 0.44 (1.0-4.6); Lymphocytes % 10.3 % (24.0-44.0); Mean Platelet Volume 11.6 fl (6-9.5); Monocyte (Absolute #) 0.27 (0.0-1.3); Monocytes % 6.3 % (0.0-12.0); Platelet Count 150 K/mm3 (150-450); Red Cell Distribution Width 13.8 % (11.5-14.0); White Blood Count 4.3 K/mm3 (4.0-10.5)
[2018-10-07 05:55] LABS: Mean Corpuscular Hemoglobin 28.2 pg (26-32)
[2018-10-07 06:00] LABS: INR 1.13 (0.8-3.0)
[2018-10-07 06:15] LABS: ALBUMIN 3.5 g/dL (3.5-5.0); ALKALINE PHOSPHATASE 111 U/L (38-126); ANION GAP 12.5 MEQ/L (5-15); BLOOD UREA NITROGEN 33 mg/dL (9-20); CHLORIDE 100 mmol/L (98-107); Calcium 8.6 mg/dL (8.4-10.2); Carbon Dioxide 34 mmol/L (22-30); Creatinine 1 0.98 mg/dL (0.66-1.25); Glucose 146 mg/dL (74-106); NT PRO BNP 2910 pg/mL (0-900); Potassium 4.8 mmol/L (3.5-5.1); SGOT/AST 26 U/L (17-59); SGPT/ALT 22 U/L (0-50); SODIUM 141 mmol/L (137-145); Total Protein 6.8 g/dL (6.3-8.2)
[2018-10-07] MEDS: Sodium Chloride 0.9% 10 ML FLUSH Syringe IV SCH ×3 (06:21→21:49)
[2018-10-07] MEDS: Lasix 40 MG/4 ML IV SCH ×2 (06:28→18:16)
[2018-10-07] MEDS ORDERED: ENOXAPARIN SODIUM SQ SCH (07:00)
[2018-10-07] MEDS: Imdur 30 MG PO SCH (08:09)
[2018-10-07] MEDS: COREG 12.5 MG PO SCH ×2 (08:09→21:48)
[2018-10-07] MEDS: Glucotrol Xl 10 MG PO SCH (08:09)
[2018-10-07] MEDS: Lotensin 10 MG PO SCH (08:10)
[2018-10-07] MEDS: hydroDIURIL 25 MG PO SCH (08:10)
[2018-10-07] MEDS: ZOCOR 20MG PO SCH (08:10)
[2018-10-07] MEDS ORDERED: NON-FORMULARY ITEM (Lisinopril [Zestril] 40 MG) PO SCH (10:00)
[2018-10-07] MEDS ORDERED: Zestril 20 MG PO SCH (10:00)
[2018-10-07] MEDS ORDERED: Ecotrin 325 MG PO SCH (10:00)
--- NOTE | 2018-10-07 10:03 | XRAY ---
Indication: Pulmonary embolus. Two-dimensional sonogram and color Doppler imaging of the major venous vessels of the left and right leg was performed. Comparison: None No thrombus seen in the examined deep venous vessels of the left and right leg including greater saphenous veins. Veins demonstrate normal compressibility. Venous waveforms are normal with and without augmentation. Impression: Left and right legs negative for DVT.
[2018-10-07] MEDS: DUONEB 0.5-3 MG/3 ml Neb IH SCH ×3 (10:23→19:18)
--- NOTE | 2018-10-07 10:27 | HP ---
HISTORY OF PRESENT ILLNESS: this is a 63 y/o patient of mine who presented first to [facility] and then was directed to go to the ED. He reports he has had increasing cough and SOB. He reports he has been unable to sleep for the past 2 days, only sleeping about 4 hours. He reports his ribs have been sore and LLQ sore from coughing so much. His cough has been productive of sputum. He hasn't had any fevers. I recently saw him 09/27/18 and prescribed him Doxycycline 100 mg PO bid which he reports he took the 10 day course of this. He has a history of CAD and actually is scheduled to see a surgeon about a bypass. He had a cath on 07/2018 that revealed an 86% stenosis after the stent that is in his LAD. Dr. Taylor is his director of recruiting. He also had an echocardiogram done in August that Dr. Taylor ordered and read that was read as an aortic valve sclerosis without stenosis and the possibility of a vegetation that couldn't be excluded recommending a SUHA. I do not know if he has had that done yet. Again, Dr. Taylor is his director of recruiting and ordered the echo and read it. The patient is scheduled also to have his gallbladder taken out once his heart is take care of. The patient was put on an increasing amount of O2 overnight. He reports they did give him some breathing treatments. He doesn't have a history of chronic obstructive pulmonary disease or asthma, but has smoked pack a day since he was 14 years old. REVIEW OF SYSTEMS: He reports a little constipation. No diarrhea. No nausea. NO vomiting. His appetite was good. He ate his whole breakfast today. He reports lower extremity edema times the past 6 months. Otherwise, Review of Systems as noted in the HPI. PAST MEDICAL HISTORY: Cad, currently scheduled to see the cardiovascular surgeon about intervention. 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 PAST SURGICAL HISTORY: Umbilical hernia repair 30 years ago. Stent to his heart in 10/2008. SOCIAL HISTORY: He reports he sometimes lives at home with his and sometimes stays with a neighbor who is like family to him. He smoked a pack per day since he was 14. He is recently cutting back. He denies needing a nicotine patch. He reports he drinks alcohol occasionally and last drank last week. No history of alcohol withdrawal. No marijuana, cocaine, meth, or other illicit drug use. CURRENT MEDICATIONS: Please see the medication reconciliation for his medications which I reviewed. ALLERGIES: NKA. PHYSICAL EXAMINATION: VITAL SIGNS: Temperature current 97.8, temperature maximum 98.8, heart rate 66-88, currently 66, respiratory rate 14-30, currently 14, O2 saturation 94% on 6 liters. He was 87% on room air when he was admitted. BP 107-150/60-80, weight 127.9 Kg. GENERAL: The patient is a pleasant, talkative man sitting up in no acute distress. CVS: He has a regular rate and rhythm. No murmurs, gallops, or rubs are appreciated. CHEST: He has decreased breath sounds at the bases bilaterally. Fine crackles at the right lower base and no wheezing. ABDOMEN: Obese, soft, nontender, nondistended with normal bowel sounds. EXTREMITIES: Trace edema. He has a sore on the top of his right foot. No clubbing or cyanosis. SKIN: Warm, dry, and intact except for some excoriations on his right lower leg. LABORATORY DATA: His Hgb is 11.3. WBC 4.3. D-dimer was 736. NT ProBNP was 4560 on admission, 2910 repeated today. He had a chest CT that was read as tiny nonoccluding right lower lobe pulmonary emboli, bilateral interstitial alveolar opacities greater on the left lower lobe, multiple small mediastinal lymph nodes, and fatty liver. Please see the radiologists report for the full dictation. He also had a chest x-ray that was read as nonacute underinflated chest with chronic features. He had an EKG - Sinus rhythm with a heart rate of 66. No ST or T wave abnormalities. ASSESSMENT AND PLAN: 1. PULMONARY EMBOLISM. He was started on Lovenox. I have changed him to Xarelto. He will get his first does of Xarelto tonight 15 mg PO bid for 21 days. Since he already received his Lovenox this morning, I discussed the risks and benefits of anticoagulation including gastrointestinal bleed or intracranial bleed. I instructed him not to take any nonsteroidal anti-inflammatory drugs with the blood thinner. Discussed the option of Coumadin. We both thought that the option of Xarelto was better. I have decreased his aspirin to 81 mg. Will continue with O2 PRN. Will consult the seaming machine operator and director of recruiting. Will also check Doppler's of his lower extremities bilaterally. 2. HISTORY OF CORONARY ARTERY DISEASE. He had a negative troponin on admission. Will repeat a troponin now. He has a repeat EKG ordered for this morning. Will continue with an aspirin and beta-lyndon and statin as well as an Angiotension-converting enzyme inhibitor. 3. DIABETES MELLITUS TYPE 2. I am holding his metformin. Continuing his other diabetes medications. Will use a low-dose sliding scale. 4. HYPOXIA. This may be related to chronic respiratory failure vs chronic obstructive pulmonary disease. Again, will as the seaming machine operator to see him today. Will schedule DuoNebs. Continue with IV steroids. I have also started him on Ceftriaxone and azithromycin. 5. TOBACCO ABUSE. The patient reports he plans to quit smoking. 6. CHRONIC CHOLECYSTITIS. Again, no pain right now. He is planning to have gallbladder surgery once he has had his bypass surgery which the patient reports he has an outpatient visit with a cardiovascular surgeon coming up in October.
[2018-10-07] MEDS: ROCEPHIN 1 Gm-D5w 50 ml Bag** 1 G/50 ML IVPB IV SCH (10:59)
[2018-10-07] MEDS: Colace 100 MG PO SCH ×2 (10:59→21:48)
[2018-10-07] MEDS: BABY ASPIRIN 81 MG CHEW PO SCH (11:00)
[2018-10-07] MEDS: Zithromax 500 MG/ 250 ML NaCl Premix 500 MG/250 ML IVPB IV SCH (11:40)
[2018-10-07] MEDS: HOLD METFORMIN PRODUCTS FOR 48 HOURS MC SCH ×2 (15:44→16:42)
[2018-10-07] MEDS: solu-MEDROL 125 MG IV SCH (17:22)
[2018-10-07] MEDS: Lantus Insulin SQ SCH (21:48)
[2018-10-07] MEDS: XARELTO 10 MG TABLET PO SCH (21:49)
[2018-10-08] MEDS: solu-MEDROL 125 MG IV SCH ×5 (00:18→23:42)
[2018-10-08] MEDS: DUONEB 0.5-3 MG/3 ml Neb IH SCH ×5 (02:54→19:07)
[2018-10-08 05:51] LABS: Basophil (Absolute #) 0 (0-0.4); Eosinophil (Absolute #) 0 (0-0.5); Granulocytes % 89.1 % (36.0-66.0); Hematocrit 38.4 % (42-50); Hemoglobin 12.1 gm/dl (12.5-18.0); Lymphocyte (Absolute #) 0.38 (1.0-4.6); Lymphocytes % 9.2 % (24.0-44.0); Mean Cell Volume 89.9 fl (78-100); Mean Corpuscular Hemoglobin 28.3 pg (26-32); Mean Corpuscular Hgb Concent. 31.5 g/dl (32-36); Mean Platelet Volume 11.6 fl (6-9.5); Monocyte (Absolute #) 0.07 (0.0-1.3); Monocytes % 1.7 % (0.0-12.0); Platelet Count 154 K/mm3 (150-450); Red Blood Count 4.27 M/mm3 (4.1-5.6); Red Cell Distribution Width 13.8 % (11.5-14.0); White Blood Count 4.2 K/mm3 (4.0-10.5)
[2018-10-08] MEDS: Sodium Chloride 0.9% 10 ML FLUSH Syringe IV SCH ×3 (06:02→22:00)
[2018-10-08 06:09] LABS: ANION GAP 12.7 MEQ/L (5-15); BLOOD UREA NITROGEN 40 mg/dL (9-20); CHLORIDE 97 mmol/L (98-107); Calcium 8.7 mg/dL (8.4-10.2); Carbon Dioxide 35 mmol/L (22-30); Creatinine 1 1.01 mg/dL (0.66-1.25); Glucose 205 mg/dL (74-106); Potassium 4.6 mmol/L (3.5-5.1); SODIUM 140 mmol/L (137-145)
[2018-10-08] MEDS: Lasix 40 MG/4 ML IV SCH ×2 (06:25→16:44)
[2018-10-08 08:01] LABS: Slide Review 1 YES
[2018-10-08] MEDS: Imdur 30 MG PO SCH (09:10)
[2018-10-08] MEDS: XARELTO 10 MG TABLET PO SCH ×2 (09:10→22:00)
[2018-10-08] MEDS: COREG 12.5 MG PO SCH ×2 (09:10→21:59)
[2018-10-08] MEDS: ZOCOR 20MG PO SCH (09:10)
[2018-10-08] MEDS: Cozaar 50 MG PO SCH (09:10)
[2018-10-08] MEDS: hydroDIURIL 25 MG PO SCH (09:10)
[2018-10-08] MEDS: Lotensin 10 MG PO SCH (09:10)
[2018-10-08] MEDS: Colace 100 MG PO SCH ×2 (09:10→21:59)
[2018-10-08] MEDS: BABY ASPIRIN 81 MG CHEW PO SCH (09:11)
[2018-10-08] MEDS: Glucotrol Xl 10 MG PO SCH (09:11)
[2018-10-08] MEDS: ROCEPHIN 1 Gm-D5w 50 ml Bag** 1 G/50 ML IVPB IV SCH (09:11)
[2018-10-08] MEDS: HOLD METFORMIN PRODUCTS FOR 48 HOURS MC SCH (09:14)
[2018-10-08] MEDS: Zithromax 500 MG/ 250 ML NaCl Premix 500 MG/250 ML IVPB IV SCH (09:14)
[2018-10-08] MEDS: Mucinex 600MG ER Tabs PO SCH ×2 (11:29→21:59)
[2018-10-08] MEDS: NovoLOG Insulin SQ PRN ×2 (11:48→22:00)
[2018-10-08] MEDS ORDERED: Glucophage 500 MG PO SCH (17:00)
[2018-10-08] MEDS: Lantus Insulin SQ SCH (21:59)
--- NOTE | 2018-10-08 22:02 | XRAY ---
Indication: Short of breath. Comparison: August 06, 2018. PA/lateral chest demonstrates new bilateral mid to lower lung infiltrates versus atelectasis and tiny left effusion. Remaining heart and lungs unremarkable with stable right base calcified granuloma.
[2018-10-09 05:05] LABS: Hematocrit 36.7 % (42-50); Hemoglobin 11.8 gm/dl (12.5-18.0); Mean Cell Volume 89.3 fl (78-100); Mean Corpuscular Hemoglobin 28.7 pg (26-32); Mean Corpuscular Hgb Concent. 32.2 g/dl (32-36); Mean Platelet Volume 11.7 fl (6-9.5); Platelet Count 168 K/mm3 (150-450); Red Blood Count 4.11 M/mm3 (4.1-5.6); Red Cell Distribution Width 13.5 % (11.5-14.0); White Blood Count 6.8 K/mm3 (4.0-10.5)
[2018-10-09 05:32] LABS: ALBUMIN 3.4 g/dL (3.5-5.0); ALKALINE PHOSPHATASE 102 U/L (38-126); ANION GAP 11.9 MEQ/L (5-15); BLOOD UREA NITROGEN 42 mg/dL (9-20); CHLORIDE 97 mmol/L (98-107); Calcium 8.6 mg/dL (8.4-10.2); Carbon Dioxide 35 mmol/L (22-30); Creatinine 1 0.95 mg/dL (0.66-1.25); Glucose 238 mg/dL (74-106); Potassium 4.3 mmol/L (3.5-5.1); SGOT/AST 22 U/L (17-59); SGPT/ALT 22 U/L (0-50); SODIUM 140 mmol/L (137-145); Total Protein 6.5 g/dL (6.3-8.2)
[2018-10-09] MEDS: solu-MEDROL 125 MG IV SCH ×3 (06:15→17:08)
[2018-10-09] MEDS: Sodium Chloride 0.9% 10 ML FLUSH Syringe IV SCH ×3 (06:15→20:54)
[2018-10-09] MEDS: Lasix 40 MG/4 ML IV SCH ×2 (06:15→17:08)
[2018-10-09 06:38] LABS: BAND 2 % (0.0-2.0); Lymphocytes 10 % (24-44); Monocyte 1 % (0.0-12.0); Neutrophils 87 % (36.-66.); Platelet Estimate NORMAL (NORMAL); Total Cells Counted 100
[2018-10-09] MEDS: DUONEB 0.5-3 MG/3 ml Neb IH SCH ×4 (07:27→19:23)
[2018-10-09] MEDS: NovoLOG Insulin SQ PRN ×4 (08:16→20:54)
[2018-10-09] MEDS: Imdur 30 MG PO SCH (09:02)
[2018-10-09] MEDS: ROCEPHIN 1 Gm-D5w 50 ml Bag** 1 G/50 ML IVPB IV SCH (09:02)
[2018-10-09] MEDS: Zithromax 500 MG/ 250 ML NaCl Premix 500 MG/250 ML IVPB IV SCH (09:02)
[2018-10-09] MEDS: XARELTO 10 MG TABLET PO SCH ×2 (09:02→20:53)
[2018-10-09] MEDS: hydroDIURIL 25 MG PO SCH (09:03)
[2018-10-09] MEDS: ZOCOR 20MG PO SCH (09:03)
[2018-10-09] MEDS: Mucinex 600MG ER Tabs PO SCH ×2 (09:03→20:53)
[2018-10-09] MEDS: Cozaar 50 MG PO SCH (09:03)
[2018-10-09] MEDS: Colace 100 MG PO SCH ×2 (09:03→20:53)
[2018-10-09] MEDS: COREG 12.5 MG PO SCH ×2 (09:03→20:54)
[2018-10-09] MEDS: BABY ASPIRIN 81 MG CHEW PO SCH (09:04)
[2018-10-09] MEDS: Glucotrol Xl 10 MG PO SCH (09:04)
[2018-10-09] MEDS: Lotensin 10 MG PO SCH (09:06)
[2018-10-09] MEDS: Lantus Insulin SQ SCH (20:54)
[2018-10-10] MEDS: solu-MEDROL 125 MG IV SCH ×2 (00:10→05:59)
[2018-10-10] MEDS: Sodium Chloride 0.9% 10 ML FLUSH Syringe IV SCH ×3 (06:02→23:20)
[2018-10-10 06:07] LABS: Hematocrit 39.9 % (42-50); Hemoglobin 12.7 gm/dl (12.5-18.0); Mean Cell Volume 87.7 fl (78-100); Mean Corpuscular Hemoglobin 27.9 pg (26-32); Mean Corpuscular Hgb Concent. 31.8 g/dl (32-36); Mean Platelet Volume 11.7 fl (6-9.5); Platelet Count 183 K/mm3 (150-450); Red Blood Count 4.55 M/mm3 (4.1-5.6); Red Cell Distribution Width 13.6 % (11.5-14.0); White Blood Count 10.2 K/mm3 (4.0-10.5)
[2018-10-10 06:25] LABS: ANION GAP 11.8 MEQ/L (5-15); BLOOD UREA NITROGEN 40 mg/dL (9-20); CHLORIDE 97 mmol/L (98-107); Calcium 8.8 mg/dL (8.4-10.2); Carbon Dioxide 33 mmol/L (22-30); Glucose 212 mg/dL (74-106); Potassium 4.2 mmol/L (3.5-5.1); SODIUM 138 mmol/L (137-145)
[2018-10-10] MEDS: DUONEB 0.5-3 MG/3 ml Neb IH SCH ×4 (06:58→20:10)
[2018-10-10 07:28] LABS: Lymphocytes 14 % (24-44); Monocyte 5 % (0.0-12.0); Neutrophils 81 % (36.-66.); Total Cells Counted 100
[2018-10-10 07:29] LABS: Platelet Estimate NORMAL (NORMAL)
[2018-10-10] MEDS: NovoLOG Insulin SQ PRN ×4 (08:06→23:30)
[2018-10-10] MEDS: Lasix 40 MG/4 ML IV SCH (08:08)
[2018-10-10] MEDS ORDERED: SENOKOT 8.6 MG PO PRN (08:59)
[2018-10-10] MEDS: Mucinex 600MG ER Tabs PO SCH ×2 (09:21→23:19)
[2018-10-10] MEDS: Lotensin 10 MG PO SCH (09:21)
[2018-10-10] MEDS: XARELTO 10 MG TABLET PO SCH ×2 (09:21→23:19)
[2018-10-10] MEDS: BABY ASPIRIN 81 MG CHEW PO SCH (09:21)
[2018-10-10] MEDS: Cozaar 50 MG PO SCH (09:22)
[2018-10-10] MEDS: ZOCOR 20MG PO SCH (09:23)
[2018-10-10] MEDS: Colace 100 MG PO SCH ×2 (09:23→23:20)
[2018-10-10] MEDS: Glucotrol Xl 10 MG PO SCH (09:23)
[2018-10-10] MEDS: Imdur 30 MG PO SCH (09:23)
[2018-10-10] MEDS: COREG 12.5 MG PO SCH ×2 (09:23→23:20)
[2018-10-10] MEDS: hydroDIURIL 25 MG PO SCH (09:23)
[2018-10-10] MEDS: ROCEPHIN 1 Gm-D5w 50 ml Bag** 1 G/50 ML IVPB IV SCH (09:25)
[2018-10-10] MEDS: Zithromax 500 MG/ 250 ML NaCl Premix 500 MG/250 ML IVPB IV SCH (10:36)
[2018-10-10] MEDS ORDERED: solu-MEDROL 125 MG IV SCH (14:00)
--- NOTE | 2018-10-10 16:58 | PCM.NOTE ---
Date and Time: 10/10/18 3093 Subjective Assessment: Patient had not been able to be weaned off 5-6 L NC over the weekend. The RT tried 3 L oxygen with oximizer and this seems to be working for him. Patient reports he is feeling better and able to move around his room better. He knows he will have to have oxygen at discharge. He has not had oxygen or a nebulizer at home before but has been using both here. He reports no stool since but does not feel very constipated. - Review of Systems Constitutional: No Symptoms Eyes: No Symptoms Ears, Nose, & Throat: No Symptoms Respiratory: Cough, Short Of Breath, Wheezing Cardiac: No Symptoms Abdominal/Gastrointestinal: No Symptoms Genitourinary Symptoms: No Symptoms Musculoskeletal: No Symptoms Skin: No Symptoms Objective Exam General Appearance: no apparent distress, alert Neurologic Exam: alert, cooperative, normal mood/affect Skin Exam: normal color, warm, dry Respiratory Exam: normal breath sounds, airway intact, other (distant breath sounds), No respiratory distress, No accessory muscle use, No crackles/rales, No rhonchi, No wheezing Cardiovascular Exam: regular rate/rhythm, normal heart sounds, No murmur, No friction rub, No gallop Gastrointestinal/Abdomen Exam: soft, normal bowel sounds, other (obese), No tenderness, No distention, No mass Extremity Exam: other (no c/c/e) OBJECTIVE DATA Vital Signs: Vital Signs - 24 hr Temp Pulse Resp BP Pulse Ox 10/10/18 16:10 68 18 94 L 10/10/18 12:00 98.1 F 74 18 127/70 93 L 10/10/18 11:14 69 20 94 L 10/10/18 07:03 97.5 F 69 20 184/84 96 10/10/18 07:00 63 16 93 L 10/10/18 04:00 97.9 F 73 19 163/72 95 10/09/18 23:36 97.8 F 66 19 168/81 94 L 10/09/18 19:37 97.7 F 71 19 143/70 93 L 10/09/18 19:28 68 20 93 L Oxygen-Last 24 hours O2 Percentage 3 Liters = 32% O2 Percentage 6 Liters = 44% O2 Percentage 6 Liters = 44% O2 Percentage 6 Liters = 44% O2 Percentage 6 Liters = 44% Pain Assessment - Last Documented Pain Intensity 0 Pain Scale Used 0-10 Pain Scale Intake and Output: Intake & Output 10/08/18 10/09/18 10/10/18 10/11/18 06:59 06:59 06:59 06:59 Intake Total 3190 3460 3340 240 Output Total 5065 1350 Balance -1875 2110 3340 240 Weight 126.5 kg 127 kg Lab Results: Accuchecks Date 10/10/18 Date 10/10/18 Date 10/09/18 Time 20:15 Accucheck Value: 439 Accucheck Value: 212 Accucheck Value: 269 Lab Results-Last 24 Hours 10/10/18 10/10/18 Range/Units 05:25 05:25 WBC 10.2 (4.0-10.5) K/mm3 RBC 4.55 (4.1-5.6) M/mm3 Hgb 12.7 (12.5-18.0) gm/dl Hct 39.9 L (42-50) % MCV 87.7 (78-100) fl MCH 27.9 (26-32) pg MCHC 31.8 L (32-36) g/dl RDW 13.6 (11.5-14.0) % Plt Count 183 (150-450) K/mm3 MPV 11.7 H (6-9.5) fl Segmented Neutrophils 81 H (36.-66.) % Lymphocytes (Manual) 14 L (24-44) % Monocytes (Manual) 5 (0.0-12.0) % Platelet Estimate NORMAL (NORMAL) RBC Morphology NORMAL Sodium 138 (137-145) mmol/L Potassium 4.2 (3.5-5.1) mmol/L Chloride 97 L (98-107) mmol/L Carbon Dioxide 33 H (22-30) mmol/L Anion Gap 11.8 (5-15) MEQ/L BUN 40 H (9-20) mg/dL Creatinine 0.80 (0.66-1.25) mg/dL Estimated GFR > 60.0 ML/MIN Glucose 212 H (74-106) mg/dL Calcium 8.8 (8.4-10.2) mg/dL Multi-Disciplinary Progress Notes: Multi-Disciplinary Progress Notes 10/10/18 16:21 Case Management Note by Bethany Sandoval SIGNED DETAILED WRITTEN ORDER FOR OXYGEN/RESPIRATORY EQUIMENT FAXED TO [facility] , THANK YOU DR. SANABRIA. THEY HAVE DELIVERED HERE TO THE PATIENT AND EXPLAINED ITS USE, IN ANTICIPATION OF THE PATIENT DISCHARGE, POSSIBLE TOMORROW. Initialized on 10/10/18 16:21 - END OF NOTE 10/10/18 14:47 Case Management Note by Bethany Sandoval Addendum entered by Bethany Sandoval 10/10/18 14:54: ORDER PUT IN DR. GARCIA'S BOX IN THE DICTATION ROOM FOR SIGNATURE. Original Note: FAXED DETAILED WRITTEN ORDER FOR OXYGEN, CONCENTRATOR, OXIMIZER, NEBULIZER TO [place] AT [facility] SO THAT IT CAN BE DELIVERED TO THE PATIENT PRIOR TO HIS DISCHARGE, AND TOMORROW IS A HOLIDAY. ALSO CALLED THE PHARMACIST AND ORDERED DUONEBS QID SCHED PER ORDER TO TOM IN RESPIRATORY FROM DR. SANABRIA FOR 30 DAYS. THE SIGNED ORDR CAN BE GIVEN TO [facility] ON WEDNESDAY. Initialized on 10/10/18 14:47 - END OF NOTE 10/10/18 12:37 Nutrition Note by Rylee Araiza F/u Note: 1999 ADA diet con't with 100% po intake. Labs 10/10= BUN 40, glu 212, alb 3.4. +fluid balance 2110 mls. weight on adm 127.9 kg; current weight 127kg. goal # 1 met #2 not met and ongoing. Con't to recommend adding cardiac restriction to diet order. Will con't to monitor and f/u prn. T.MS Jose GRDCD Initialized on 10/10/18 12:37 - END OF NOTE 10/10/18 10:00 (created 10/10/18 10:36) Respiratory Note by Tom Youssef The patient's O2 sat on 3lpm per Oxymizer is 92% at rest. Took patient's O2 off and waited 15 minutes and patient's O2 sat had decreased to 85% on room air at rest. Patient placed back on 3lpm per Oxymizer and O2 sat increased to 92% immediately. Initialized on 10/10/18 10:36 - END OF NOTE Assessment/Plan (1) Pulmonary embolism Current Visit: Yes Status: Acute Onset Date: ~10/06/18 Assessment & Plan: Continue xarelto 15 mg po bid. Code(s): I26.99 - OTHER PULMONARY EMBOLISM WITHOUT ACUTE COR PULMONALE (2) Pneumonitis Current Visit: Yes Status: Acute Onset Date: ~10/06/18 Assessment & Plan: Continue with ceftriaxone and azithromycin which are both day 4 today. Continue with duoneb qid scheduled and plan to continue nebulizer at home. Demographic Analyst consulted but not available until 10/20/18. Code(s): J18.9 - PNEUMONIA, UNSPECIFIED ORGANISM (3) History of coronary artery disease Current Visit: Yes Status: Acute Assessment & Plan: Patient has history of 80% stenosis to LAD with previous stent to heart too. Scheduled to see cardiovascular surgeon next month for evaluation for bypass. He has been seen by the career based intervention coordinator via telemedicine and his JAZZY was changed to ARB and continued on 81 mg aspirin and also beta lyndon and statin. Code(s): Z86.79 - PERSONAL HISTORY OF OTHER DISEASES OF THE CIRCULATORY SYSTEM (4) COPD (chronic obstructive pulmonary disease) with emphysema Current Visit: Yes Status: Acute Assessment & Plan: I changed his IV steroids to oral steroids this afternoon. Code(s): J43.9 - EMPHYSEMA, UNSPECIFIED (5) Chronic respiratory failure with hypoxia Current Visit: Yes Status: Acute Assessment & Plan: Continue oxygen and qualified for home oxygen which [employer] has brought to the hospital for possible discharge. (6) SOB (shortness of breath) Current Visit: Yes Status: Acute Onset Date: ~10/06/18 Code(s): R06.02 - SHORTNESS OF BREATH (7) CHF (congestive heart failure) Current Visit: Yes Status: Acute Onset Date: ~10/06/18 Assessment & Plan: IV bid lasix changed to oral lasix bid today. Code(s): I50.9 - HEART FAILURE, UNSPECIFIED (8) DM w/o complication type II Current Visit: Yes Status: Acute Assessment & Plan: Blood glucose to >400 this afternoon. I increased his lantus from 20 to 30 units and restarted metformin. He is also on glipizide. Code(s): E11.9 - TYPE 2 DIABETES MELLITUS WITHOUT COMPLICATIONS (9) Constipation Current Visit: Yes Status: Acute Assessment & Plan: Continue docusate and senna added. Code(s): K59.00 - CONSTIPATION, UNSPECIFIED
[2018-10-10] MEDS: Glucophage XR 500 MG PO SCH (17:38)
[2018-10-10] MEDS: Lasix 40 MG PO SCH (17:38)
[2018-10-10] MEDS ORDERED: Lantus Insulin SQ SCH (22:00)
[2018-10-10] MEDS: DELTASONE 20 MG PO SCH (23:19)
[2018-10-11 05:26] LABS: BASOPHIL % 0.1 % (0.0-0.4); Basophil (Absolute #) 0.01 (0-0.4); Eosinophil % 0.1 % (0.00-5.0); Eosinophil (Absolute #) 0.01 (0-0.5); Granulocyte Absolute (ANC) 9.52 (1.4-6.9); Granulocytes % 85.6 % (36.0-66.0); Hematocrit 42.5 % (42-50); Hemoglobin 13.6 gm/dl (12.5-18.0); Lymphocyte (Absolute #) 0.85 (1.0-4.6); Lymphocytes % 7.6 % (24.0-44.0); Mean Cell Volume 88.4 fl (78-100); Mean Corpuscular Hemoglobin 28.3 pg (26-32); Mean Platelet Volume 11.6 fl (6-9.5); Monocyte (Absolute #) 0.73 (0.0-1.3); Monocytes % 6.6 % (0.0-12.0); Platelet Count 213 K/mm3 (150-450); Red Blood Count 4.81 M/mm3 (4.1-5.6); Red Cell Distribution Width 13.7 % (11.5-14.0); White Blood Count 11.1 K/mm3 (4.0-10.5)
[2018-10-11 05:45] LABS: ANION GAP 10.1 MEQ/L (5-15); BLOOD UREA NITROGEN 40 mg/dL (9-20); CHLORIDE 96 mmol/L (98-107); Carbon Dioxide 38 mmol/L (22-30); Glucose 125 mg/dL (74-106); Potassium 4.1 mmol/L (3.5-5.1); SODIUM 140 mmol/L (137-145)
[2018-10-11] MEDS: Sodium Chloride 0.9% 10 ML FLUSH Syringe IV SCH (07:06)
[2018-10-11] MEDS: Zithromax 500 MG/ 250 ML NaCl Premix 500 MG/250 ML IVPB IV SCH (09:03)
[2018-10-11] MEDS: Mucinex 600MG ER Tabs PO SCH (09:03)
[2018-10-11] MEDS: XARELTO 10 MG TABLET PO SCH (09:04)
[2018-10-11] MEDS: Glucophage XR 500 MG PO SCH (09:05)
[2018-10-11] MEDS: Colace 100 MG PO SCH (09:05)
[2018-10-11] MEDS: Glucotrol Xl 10 MG PO SCH (09:05)
[2018-10-11] MEDS: DELTASONE 20 MG PO SCH (09:06)
[2018-10-11] MEDS: hydroDIURIL 25 MG PO SCH (09:06)
[2018-10-11] MEDS: Cozaar 50 MG PO SCH (09:06)
[2018-10-11] MEDS: COREG 12.5 MG PO SCH (09:06)
[2018-10-11] MEDS: ZOCOR 20MG PO SCH (09:06)
[2018-10-11] MEDS: Lotensin 10 MG PO SCH (09:06)
[2018-10-11] MEDS: Lasix 40 MG PO SCH (09:07)
[2018-10-11] MEDS: ROCEPHIN 1 Gm-D5w 50 ml Bag** 1 G/50 ML IVPB IV SCH (09:07)
[2018-10-11] MEDS: Imdur 30 MG PO SCH (09:07)
[2018-10-11] MEDS: BABY ASPIRIN 81 MG CHEW PO SCH (09:07)
[2018-10-11] MEDS: DUONEB 0.5-3 MG/3 ml Neb IH SCH (11:10)
--- NOTE | 2018-10-11 11:42 | PCM.DS ---
Discharge Summary Date of Admission: 10/06/18 17:13 Admitting Physician: LIZET SANABRIA Consults: Consults on Case 10/07/18 08:44 Consult Pulmonology ROUTINE 10/07/18 08:45 Consult Cardiology ROUTINE Primary Care Provider: LIZET SANABRIA Allergies Allergies No Known Drug Allergies Allergy (Verified 10/06/18 13:37) Hospital Summary - Hospital Course Hospital Course: 63yo [address] of [address] Sanabria who has been under her care during the hospital stay, was seen by me on date of discharge. was admitted with pulmonary embolism, receiving xarelto with pneumonia and new diagnosis of copd with hypoxia. he is doing well, cough improved and has no chest pain or dyspnea. has been qualified for oxygen, discussed smoking cessation and he plans to not restart smoking at home. - Vitals & Intake/Output Vital Signs: Vital Signs Temperature 98.4 F 10/11/18 07:04 Pulse Rate 84 10/11/18 11:11 Respiratory Rate 18 10/11/18 11:11 Blood Pressure 134/78 10/11/18 07:04 O2 Sat by Pulse Oximetry 93 L 10/11/18 11:11 Oxygen-Last Documented O2 Percentage 3 Liters = 32% Intake & Output: Intake & Output 10/08/18 10/09/18 10/10/18 10/11/18 11:59 11:59 11:59 11:59 Intake Total 3190 3940 2620 600 Output Total 6415 Balance -3225 3940 2620 600 Weight 126.5 kg 127 kg 125.7 kg 125.8 kg - Lab Result Diagrams: 10/11/18 04:45 10/11/18 04:45 Lab Results-Last 24 Hrs: Accuchecks Date 10/11/18 Date 10/10/18 Date 10/10/18 Time 07:00 Time 21:30 Accucheck Value: 111 Accucheck Value: 379 Accucheck Value: 320 Lab Results-Last 24 Hours 10/11/18 10/11/18 Range/Units 04:45 04:45 WBC 11.1 H (4.0-10.5) K/mm3 RBC 4.81 (4.1-5.6) M/mm3 Hgb 13.6 (12.5-18.0) gm/dl Hct 42.5 (42-50) % MCV 88.4 (78-100) fl MCH 28.3 (26-32) pg MCHC 32.0 (32-36) g/dl RDW 13.7 (11.5-14.0) % Plt Count 213 (150-450) K/mm3 MPV 11.6 H (6-9.5) fl Gran % 85.6 H (36.0-66.0) % Eos # (Auto) 0.01 (0-0.5) Absolute Lymphs (auto) 0.85 L (1.0-4.6) Absolute Monos (auto) 0.73 (0.0-1.3) Lymphocytes % 7.6 L (24.0-44.0) % Monocytes % 6.6 (0.0-12.0) % Eosinophils % 0.1 (0.00-5.0) % Basophils % 0.1 (0.0-0.4) % Absolute Granulocytes 9.52 H (1.4-6.9) Basophils # 0.01 (0-0.4) Sodium 140 (137-145) mmol/L Potassium 4.1 (3.5-5.1) mmol/L Chloride 96 L (98-107) mmol/L Carbon Dioxide 38 H (22-30) mmol/L Anion Gap 10.1 (5-15) MEQ/L BUN 40 H (9-20) mg/dL Creatinine 1.00 (0.66-1.25) mg/dL Estimated GFR > 60.0 ML/MIN Glucose 125 H (74-106) mg/dL Calcium 9.0 (8.4-10.2) mg/dL Micro Results-Entire Visit: Microbiology 10/07/18 13:17 Gram Stain - Final Sputum - Expectorant Sputum Culture - Final ORGANISMS ISOLATED ARE CONSISTENT WITH NORMAL RESP CRYSTAL MODERATE GROWTH, NO PREDOMINANT ORGANISM Accuchecks Date 10/11/18 Date 10/10/18 Date 10/10/18 Time 07:00 Time 21:30 Accucheck Value: 111 Accucheck Value: 379 Accucheck Value: 320 - Procedures and Test Procedures and Tests throughout Hospitalization: Therapy Orders & Screens 10/06/18 12:52 Peak Expiratory Flow Rate ONCE Comment: Reason For Exam: Diagnosis: Shortness of Breath Respiratory Nebulizer STAT Comment: Diagnosis: Shortness of Breath Respiratory Therapy Assessment DAILY Comment: Diagnosis: Shortness of Breath 10/06/18 17:17 EKG REPEAT IN AM Comment: Diagnosis: Shortness of Breath Respiratory Therapy Consult ROUTINE Comment: Reason For Exam: Diagnosis: Shortness of Breath 10/06/18 17:30 Oxygen NASAL CANNULA 4 lpm Comment: Diagnosis: Shortness of Breath 10/06/18 18:08 Smoking Cessation Education ONCE Comment: Diagnosis: SOB, PE, CHF Smoking Status: Current every day smoker How long have you smoked: since 14 y Approximately how many cigarettes per day: 1/2 pack Do you dip or chew tobacco: No If,Former Smoker,when did you quit: 10/03/18 10/07/18 10:00 Peak Expiratory Flow Rate DAILY Comment: Reason For Exam: Diagnosis: SOB, PE, CHF 10/08/18 10:55 Flutter Therapy UD Comment: Diagnosis: SOB, PE, CHF 10/10/18 08:58 Qualify for Home Oxygen ROUTINE Comment: Diagnosis: SOB, PE, CHF Discharge Exam General Appearance: no apparent distress, alert, obese Skin Exam: normal color, warm, dry Ears, Nose, Throat Exam: normal ENT inspection, pharynx normal, moist mucous membranes Respiratory Exam: prolonged expirations, rhonchi, No respiratory distress Cardiovascular Exam: regular rate/rhythm, normal heart sounds Gastrointestinal/Abdomen Exam: soft, No tenderness, No mass Extremity Exam: normal inspection, normal range of motion Final Diagnosis/Problem List - Final Discharge Diagnosis/Problem (1) Pulmonary embolism Current Visit: Yes Status: Acute Onset Date: ~10/06/18 Assessment & Plan: home on po xarelto 15mg po bid x 21 days (2) COPD (chronic obstructive pulmonary disease) with emphysema Current Visit: Yes Status: Acute Assessment & Plan: home with nebulizer supplies, will send in rx for po prednisone, currently on 20mg bid in the hospital, will continue x 1 week then 20mg daily x 1 week to wean (3) Hypoxia Current Visit: Yes Status: Acute Onset Date: ~10/06/18 Assessment & Plan: qualified for oxygen and all home oxygen equipment has been arranged with [employer] (4) Pneumonitis Current Visit: Yes Status: Acute Onset Date: ~10/06/18 Assessment & Plan: has completed 5 day course of rocephin and zithromax, will send home on augmentin for 5 more days (5) DM w/o complication type II Current Visit: Yes Status: Acute - Discharge Disposition: Home, Self-Care Condition: Stable Prescriptions: New Amoxicillin/Potassium Clav [Augmentin 875-125 Tablet] 1 each PO BID #10 tablet Prednisone 20 mg [Deltasone 20 mg] 20 mg PO UD #21 tablet Albuterol/Ipratropium 3ml Neb* [DUONEB 0.5-3 MG/3 ml Neb] 3 ml IH QID #100 ampul.neb Rivaroxaban [Xarelto] 15 mg PO BID #42 tablet Continue Metformin HCl [Glucophage] 1,000 mg PO BID Insulin Glargine [Lantus Insulin] 20 unit SQ HS Simvastatin 20Mg [Zocor 20Mg] 20 mg PO DAILY Aspirin [Aspirin EC] 325 mg PO DAILY Lisinopril [Zestril] 40 mg PO DAILY Isosorbide Mononitrate 30 mg [Imdur 30 MG] 30 mg PO DAILY Hydrochlorothiazide 25 mg [hydroDIURIL 25 MG] 25 mg PO DAILY Carvedilol 12.5 mg [Coreg 12.5 mg] 12.5 mg PO BID Glipizide [Glipizide ER] 10 mg PO DAILY Instructions: Pulmonary Embolism (Blood Clot in the Lungs), Heart Failure, Adult Follow up with: NABIL VILLARREAL [NON-STAFF PHY W/O PRIVILEGES] - 10/18/18 1:30 pm LIZET SANABRIA [Primary Care Provider] - 10/17/18 10:45 am Forms: CHF Discharge Instructions
[2018-10-11 11:50] VITALS: BP 132/58; PULSE 82; O2SAT 91
[2018-10-11] MEDS: NovoLOG Insulin SQ PRN (11:59)
== END 2018-10-11 12:07 | disposition home or self-care (01) | DRG 175 ==
LOC: ED 12:36 → MED SURG 17:13
PROVIDERS: ADMIT Internal Medicine; ATTEND Internal Medicine
DX: I26.99 Other pulmonary embolism without acute cor pulmonale (principal); J18.9 Pneumonia, unspecified organism; J44.9 Chronic obstructive pulmonary disease, unspecified; J43.9 Emphysema, unspecified; R09.02 Hypoxemia; E11.9 Type 2 diabetes mellitus without complications; I25.10 Atherosclerotic heart disease of native coronary artery without angina pectoris; I10 Essential (primary) hypertension; E78.5 Hyperlipidemia, unspecified; K81.1 Chronic cholecystitis; I35.8 Other nonrheumatic aortic valve disorders; I50.9 Heart failure, unspecified; Z79.899 Other long term (current) drug therapy
CPT/HCPCS: 36000; 36415; 71045; 71046; 71260; 80048; 80053; 82962; 83036; 83880; 84484; 85025; 85379; 85610; 87070; 93005; 93041; 93970; 94150; 94640; 94667; 94668; 94760; 94762; 96372; 96374; 99285; J0456; J0696; J1650; J1940; J2930; Q3014; A9270-GY

== ENCOUNTER 2019-05-26 10:48 | Inpatient (IN) | payer MEDICARE, OTHER | END 2019-05-29 11:05 | disposition home or self-care (01) | LOC: MED SURG 10:48 ==

== ENCOUNTER 2019-07-17 21:15 | Emergency (ER) | payer MEDICARE, OTHER ==
--- NOTE | 2019-07-17 21:20 | ERPHSYRPT ---
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 no head or neck injury. pts friend states pt has been rubbing his chest often over last several days. pt not that great of a historian at this time. the friend that brought him in was not the friend who witnessed pts onset of confusion. pt with h/o pulm embolism in past Timing/Duration: today Severity: moderate Deficits: no difficulties Baseline/Normal Cognition: alert oriented x 3 Current Cognition: alert but confused Baseline Gait: walks w/o assistance Associated Symptoms: chest pain (ache) Allergies/Adverse Reactions: No Known Drug Allergies Allergy (Verified 07/17/19 21:35) Home Medications: Metformin HCl [Glucophage] 1,000 mg PO BID 01/22/17 [History] Carvedilol 12.5 mg [Coreg 12.5 mg] 25 mg PO BID 10/06/18 [History] Glipizide [Glipizide ER] 10 mg PO DAILY 10/06/18 [History] Hydrochlorothiazide 25 mg [hydroDIURIL 25 MG] 25 mg PO DAILY 10/06/18 [ History] Atorvastatin Calcium [Lipitor] 40 mg PO DAILY 05/26/19 [History] Duloxetine HCl [Cymbalta] 60 mg PO DAILY 05/26/19 [History] Losartan Potassium 50 mg [Cozaar 50 MG] 50 mg PO DAILY 05/26/19 [History] Furosemide 40 mg [Lasix 40 MG] 1 tab PO DAILY 07/18/19 [History] Gabapentin 1 tab PO TID 07/18/19 [History] Hx Tetanus, Diphtheria Vaccination/Date Given: No Hx Influenza Vaccination/Date Given: Yes Hx Pneumococcal Vaccination/Date Given: No - Review of Systems Constitutional: No Symptoms Eyes: No Symptoms Ears, Nose, & Throat: No Symptoms Respiratory: No Symptoms Cardiac: Chest Pain Abdominal/Gastrointestinal: No Symptoms Genitourinary Symptoms: No Symptoms Musculoskeletal: No Symptoms Skin: No Symptoms Neurological: No Symptoms, Other (confusion) Psychological: No Symptoms Endocrine: No Symptoms Hematologic/Lymphatic: No Symptoms Immunological/Allergic: No Symptoms - Past Medical History Pertinent Past Medical History: Yes Neurological History: No Pertinent History ENT History: No Pertinent History Cardiac History: Congestive Heart Failure, High Cholesterol, Hypertension Respiratory History: CHF, COPD Endocrine Medical History: Diabetes Type II Musculoskeletal History: Osteoarthritis GI Medical History: No Pertinent History History: No Pertinent History Psycho-Social History: No Pertinent History Male Reproductive Disorders: No Pertinent History Other Medical History: pt states he quit smoking three days ago. - Past Surgical History Past Surgical History: Yes (DECEMBER TRIPLE BYPASS) Neuro Surgical History: No Pertinent History Cardiac: Other Respiratory: No Pertinent History, Chest Surgery Gastrointestinal: No Pertinent History Genitourinary: No Pertinent History Musculoskeletal: No Pertinent History Male Surgical History: No Pertinent History - Social History Smoking Status: Current every day smoker How long have you smoked: 25 Exposure to second hand smoke: Yes Drug Use: none Patient Lives Alone: No - Nursing Vital Signs Nursing Vital Signs: Initial Vital Signs Temperature 98.2 F 07/17/19 21:16 Pulse Rate 79 07/17/19 21:16 Respiratory Rate 18 07/17/19 21:16 Blood Pressure 145/76 07/17/19 21:16 O2 Sat by Pulse Oximetry 95 07/17/19 21:16 Pain Scale Pain Intensity 0 - Lima Coma Scale Best Eye Response (Daysi): (4) open spontaneously Best Verbal Response (Daysi): (5) oriented Best Motor Response (Daysi): (6) obeys commands Daysi Total: 15 - Physical Exam General Appearance: mild distress, alert, anxiety Eye Exam: bilateral eye: normal inspection, PERRL, EOMI Ears, Nose, Throat Exam: normal ENT inspection, moist mucous membranes Neck Exam: normal inspection, non-tender, supple, full range of motion Respiratory: normal breath sounds, lungs clear, airway intact, No chest tenderness, No respiratory distress Cardiovascular: regular rate/rhythm, normal heart sounds, normal peripheral pulses Gastrointestinal: soft, normal bowel sounds, No tenderness Rectal Exam: not done Back Exam: normal inspection, normal range of motion, No CVA tenderness, No vertebral tenderness Extremity Exam: normal inspection, normal range of motion, pelvis stable Mental Status: alert, oriented x 3, cooperative, other (mild confusion) 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 no changes from ekg dated 05/26/19) Ordered Tests: Active Orders 24 hr Category Date Time Status Manager Creative Services STAT Care 07/17/19 21:55 Active EKG-ER Only STAT Care 07/17/19 21:54 Active IV Insertion STAT Care 07/17/19 21:54 Active NPO (ED) STAT Care 07/17/19 21:54 Active Pulse Oximetry (ED) STAT Care 07/17/19 21:54 Active CHEST WITH CONTRAST [CT] Stat Exams 07/18/19 01:08 Taken HEAD WITHOUT CONTRAST [CT] Stat Exams 07/17/19 21:54 Taken Alcohol [ETHYL ALCOHOL] Stat Lab 07/18/19 01:16 Completed CBC W DIFF Stat Lab 07/17/19 22:13 Completed CMP Stat Lab 07/17/19 22:13 Completed CULTURE,URINE Stat Lab 07/18/19 01:39 Received D-DIMER QUANTITATION Stat Lab 07/18/19 00:14 Completed PROTIME WITH INR Stat Lab 07/17/19 22:13 Completed TROPONIN Q3H Lab 07/18/19 00:15 Completed TROPONIN Q3H Lab 07/18/19 00:57 Completed TROPONIN Q3H Lab 07/18/19 04:31 Completed TROPONIN Q3H Lab 07/18/19 09:15 Ordered TROPONIN Q3H Lab 07/18/19 12:15 Ordered TROPONIN Q3H Lab 07/18/19 15:15 Ordered TROPONIN Q3H Lab 07/18/19 18:15 Ordered TROPONIN Q3H Lab 07/18/19 21:15 Ordered UA W/RFX UR CULTURE Stat Lab 07/18/19 01:39 Completed Urine Triage Profile Stat Lab 07/18/19 01:39 Completed Medication Summary Generic Name Dose Route Start Last Admin Trade Name Freq PRN Reason Stop Dose Admin Sodium Chloride 1,000 mls @ 50 mls/hr 07/18/19 01:15 07/18/19 01:13 Sodium Chloride 0.9% 1000 Ml IV 08/17/19 01:14 50 mls/hr .Q20H ZARIA Administration Discontinued Medications Generic Name Dose Route Start Last Admin Trade Name Esther PRN Reason Stop Dose Admin Sodium Chloride 1,000 mls @ 999 mls/hr 07/17/19 21:54 07/17/19 23:45 Sodium Chloride 0.9% 1000 Ml IV 07/17/19 22:54 Infused .Q1H1M STA Infusion Sodium Chloride Confirm 07/17/19 22:02 Sodium Chloride 0.9% 1000 Ml Administered 07/17/19 22:03 Dose 1,000 mls @ ud .ROUTE .STK-MED ONE Lab/Rad Data: Laboratory Result Diagrams 07/17/19 22:13 07/17/19 22:13 Laboratory Results 07/18/19 07/18/19 07/18/19 Range/Units Unknown 04:31 01:39 WBC (4.0-10.5) K/mm3 RBC (4.1-5.6) M/mm3 Hgb (12.5-18.0) gm/dl Hct (42-50) % MCV (78-100) fl MCH (26-32) pg MCHC (32-36) g/dl RDW (11.5-14.0) % Plt Count (150-450) K/mm3 MPV (6-9.5) fl Gran % (36.0-66.0) % Eos # (Auto) (0-0.5) Absolute Lymphs (auto) (1.0-4.6) Absolute Monos (auto) (0.0-1.3) Lymphocytes % (24.0-44.0) % Monocytes % (0.0-12.0) % Eosinophils % (0.00-5.0) % Basophils % (0.0-0.4) % Absolute Granulocytes (1.4-6.9) Basophils # (0-0.4) PT (8.83-12.87) SECONDS INR (0.8-3.0) D-Dimer (215-500) ng/mL Sodium (137-145) mmol/L Potassium (3.5-5.1) mmol/L Chloride (98-107) mmol/L Carbon Dioxide (22-30) mmol/L Anion Gap (5-15) MEQ/L BUN (9-20) mg/dL Creatinine (0.66-1.25) mg/dL Estimated GFR ML/MIN Glucose (74-106) mg/dL Calcium (8.4-10.2) mg/dL Total Bilirubin (0.2-1.3) mg/dL AST (17-59) U/L ALT (0-50) U/L Alkaline Phosphatase (38-126) U/L Ammonia < 9 L (9-30) umol/L Troponin I 0.018 (0.000-0.034) ng/mL Serum Total Protein (6.3-8.2) g/dL Albumin (3.5-5.0) g/dL Urine Color (YELLOW) Urine Appearance (CLEAR) Urine pH (5-6) Ur Specific Marshall (1.005-1.025) Urine Protein (Negative) Urine Ketones (NEGATIVE) Urine Blood (0-5) Neymar/ul Urine Nitrite (NEGATIVE) Urine Bilirubin (NEGATIVE) Urine Urobilinogen (0-1) mg/dL Ur Leukocyte Esterase (NEGATIVE) Urine WBC (Auto) (0-5) /HPF Urine RBC (Auto) (0-2) /HPF U Hyaline Cast (Auto) (0-2) /LPF U Epithel Cells (Auto) (FEW) /HPF Urine Bacteria (Auto) (NEGATIVE) /HPF Urine Mucus (Auto) (NEGATIVE) /HPF Urine Culture Reflexed (NO) Urine Glucose (NEGATIVE) mg/dL Urine Opiates Level NEGATIVE (NEGATIVE) Ur Methadone NEGATIVE (NEGATIVE) Urine Barbiturates NEGATIVE (NEGATIVE) Ur Phencyclidine (PCP) NEGATIVE (NEGATIVE) Urine Amphetamine NEGATIVE (NEGATIVE) U Benzodiazepine Level NEGATIVE (NEGATIVE) Urine Cocaine NEGATIVE (NEGATIVE) Urine Marijuana (THC) NEGATIVE (NEGATIVE) Ethyl Alcohol (0-10) mg/dL 07/18/19 07/18/19 07/18/19 Range/Units 01:39 01:16 00:57 WBC (4.0-10.5) K/mm3 RBC (4.1-5.6) M/mm3 Hgb (12.5-18.0) gm/dl Hct (42-50) % MCV (78-100) fl MCH (26-32) pg MCHC (32-36) g/dl RDW (11.5-14.0) % Plt Count (150-450) K/mm3 MPV (6-9.5) fl Gran % (36.0-66.0) % Eos # (Auto) (0-0.5) Absolute Lymphs (auto) (1.0-4.6) Absolute Monos (auto) (0.0-1.3) Lymphocytes % (24.0-44.0) % Monocytes % (0.0-12.0) % Eosinophils % (0.00-5.0) % Basophils % (0.0-0.4) % Absolute Granulocytes (1.4-6.9) Basophils # (0-0.4) PT (8.83-12.87) SECONDS INR (0.8-3.0) D-Dimer (215-500) ng/mL Sodium (137-145) mmol/L Potassium (3.5-5.1) mmol/L Chloride (98-107) mmol/L Carbon Dioxide (22-30) mmol/L Anion Gap (5-15) MEQ/L BUN (9-20) mg/dL Creatinine (0.66-1.25) mg/dL Estimated GFR ML/MIN Glucose (74-106) mg/dL Calcium (8.4-10.2) mg/dL Total Bilirubin (0.2-1.3) mg/dL AST (17-59) U/L ALT (0-50) U/L Alkaline Phosphatase (38-126) U/L Ammonia (9-30) umol/L Troponin I 0.017 (0.000-0.034) ng/mL Serum Total Protein (6.3-8.2) g/dL Albumin (3.5-5.0) g/dL Urine Color YELLOW (YELLOW) Urine Appearance SLIGHTLY CLOUDY (CLEAR) Urine pH 5.0 (5-6) Ur Specific Marshall 1.014 (1.005-1.025) Urine Protein >=500 (Negative) Urine Ketones NEGATIVE (NEGATIVE) Urine Blood SMALL (0-5) Neymar/ul Urine Nitrite NEGATIVE (NEGATIVE) Urine Bilirubin NEGATIVE (NEGATIVE) Urine Urobilinogen NEGATIVE (0-1) mg/dL Ur Leukocyte Esterase NEGATIVE (NEGATIVE) Urine WBC (Auto) 3-5 (0-5) /HPF Urine RBC (Auto) 11-15 (0-2) /HPF U Hyaline Cast (Auto) 26-50 (0-2) /LPF U Epithel Cells (Auto) NONE (FEW) /HPF Urine Bacteria (Auto) NONE (NEGATIVE) /HPF Urine Mucus (Auto) SLIGHT (NEGATIVE) /HPF Urine Culture Reflexed YES (NO) Urine Glucose NEGATIVE (NEGATIVE) mg/dL Urine Opiates Level (NEGATIVE) Ur Methadone (NEGATIVE) Urine Barbiturates (NEGATIVE) Ur Phencyclidine (PCP) (NEGATIVE) Urine Amphetamine (NEGATIVE) U Benzodiazepine Level (NEGATIVE) Urine Cocaine (NEGATIVE) Urine Marijuana (THC) (NEGATIVE) Ethyl Alcohol < 10 (0-10) mg/dL 07/18/19 07/18/19 07/17/19 Range/Units 00:15 00:14 22:13 WBC (4.0-10.5) K/mm3 RBC (4.1-5.6) M/mm3 Hgb (12.5-18.0) gm/dl Hct (42-50) % MCV (78-100) fl MCH (26-32) pg MCHC (32-36) g/dl RDW (11.5-14.0) % Plt Count (150-450) K/mm3 MPV (6-9.5) fl Gran % (36.0-66.0) % Eos # (Auto) (0-0.5) Absolute Lymphs (auto) (1.0-4.6) Absolute Monos (auto) (0.0-1.3) Lymphocytes % (24.0-44.0) % Monocytes % (0.0-12.0) % Eosinophils % (0.00-5.0) % Basophils % (0.0-0.4) % Absolute Granulocytes (1.4-6.9) Basophils # (0-0.4) PT 11.1 (8.83-12.87) SECONDS INR 0.98 (0.8-3.0) D-Dimer 561 H* (215-500) ng/mL Sodium (137-145) mmol/L Potassium (3.5-5.1) mmol/L Chloride (98-107) mmol/L Carbon Dioxide (22-30) mmol/L Anion Gap (5-15) MEQ/L BUN (9-20) mg/dL Creatinine (0.66-1.25) mg/dL Estimated GFR ML/MIN Glucose (74-106) mg/dL Calcium (8.4-10.2) mg/dL Total Bilirubin (0.2-1.3) mg/dL AST (17-59) U/L ALT (0-50) U/L Alkaline Phosphatase (38-126) U/L Ammonia (9-30) umol/L Troponin I 0.017 (0.000-0.034) ng/mL Serum Total Protein (6.3-8.2) g/dL Albumin (3.5-5.0) g/dL Urine Color (YELLOW) Urine Appearance (CLEAR) Urine pH (5-6) Ur Specific Marshall (1.005-1.025) Urine Protein (Negative) Urine Ketones (NEGATIVE) Urine Blood (0-5) Neymar/ul Urine Nitrite (NEGATIVE) Urine Bilirubin (NEGATIVE) Urine Urobilinogen (0-1) mg/dL Ur Leukocyte Esterase (NEGATIVE) Urine WBC (Auto) (0-5) /HPF Urine RBC (Auto) (0-2) /HPF U Hyaline Cast (Auto) (0-2) /LPF U Epithel Cells (Auto) (FEW) /HPF Urine Bacteria (Auto) (NEGATIVE) /HPF Urine Mucus (Auto) (NEGATIVE) /HPF Urine Culture Reflexed (NO) Urine Glucose (NEGATIVE) mg/dL Urine Opiates Level (NEGATIVE) Ur Methadone (NEGATIVE) Urine Barbiturates (NEGATIVE) Ur Phencyclidine (PCP) (NEGATIVE) Urine Amphetamine (NEGATIVE) U Benzodiazepine Level (NEGATIVE) Urine Cocaine (NEGATIVE) Urine Marijuana (THC) (NEGATIVE) Ethyl Alcohol (0-10) mg/dL 07/17/19 07/17/19 Range/Units 22:13 22:13 WBC 7.5 (4.0-10.5) K/mm3 RBC 4.15 (4.1-5.6) M/mm3 Hgb 11.7 L (12.5-18.0) gm/dl Hct 37.6 L (42-50) % MCV 90.6 (78-100) fl MCH 28.1 (26-32) pg MCHC 31.1 L (32-36) g/dl RDW 15.3 H (11.5-14.0) % Plt Count 174 (150-450) K/mm3 MPV 11.5 H (6-9.5) fl Gran % 78.9 H (36.0-66.0) % Eos # (Auto) 0.11 (0-0.5) Absolute Lymphs (auto) 0.93 L (1.0-4.6) Absolute Monos (auto) 0.53 (0.0-1.3) Lymphocytes % 12.4 L (24.0-44.0) % Monocytes % 7.1 (0.0-12.0) % Eosinophils % 1.5 (0.00-5.0) % Basophils % 0.1 (0.0-0.4) % Absolute Granulocytes 5.93 (1.4-6.9) Basophils # 0.01 (0-0.4) PT (8.83-12.87) SECONDS INR (0.8-3.0) D-Dimer (215-500) ng/mL Sodium 142 (137-145) mmol/L Potassium 4.2 (3.5-5.1) mmol/L Chloride 105 (98-107) mmol/L Carbon Dioxide 27 (22-30) mmol/L Anion Gap 14.9 (5-15) MEQ/L BUN 35 H (9-20) mg/dL Creatinine 1.35 H (0.66-1.25) mg/dL Estimated GFR 56.7 ML/MIN Glucose 116 H (74-106) mg/dL Calcium 9.4 (8.4-10.2) mg/dL Total Bilirubin 0.30 (0.2-1.3) mg/dL AST 39 (17-59) U/L ALT 23 (0-50) U/L Alkaline Phosphatase 121 (38-126) U/L Ammonia (9-30) umol/L Troponin I (0.000-0.034) ng/mL Serum Total Protein 6.9 (6.3-8.2) g/dL Albumin 3.7 (3.5-5.0) g/dL Urine Color (YELLOW) Urine Appearance (CLEAR) Urine pH (5-6) Ur Specific Marshall (1.005-1.025) Urine Protein (Negative) Urine Ketones (NEGATIVE) Urine Blood (0-5) Neymar/ul Urine Nitrite (NEGATIVE) Urine Bilirubin (NEGATIVE) Urine Urobilinogen (0-1) mg/dL Ur Leukocyte Esterase (NEGATIVE) Urine WBC (Auto) (0-5) /HPF Urine RBC (Auto) (0-2) /HPF U Hyaline Cast (Auto) (0-2) /LPF U Epithel Cells (Auto) (FEW) /HPF Urine Bacteria (Auto) (NEGATIVE) /HPF Urine Mucus (Auto) (NEGATIVE) /HPF Urine Culture Reflexed (NO) Urine Glucose (NEGATIVE) mg/dL Urine Opiates Level (NEGATIVE) Ur Methadone (NEGATIVE) Urine Barbiturates (NEGATIVE) Ur Phencyclidine (PCP) (NEGATIVE) Urine Amphetamine (NEGATIVE) U Benzodiazepine Level (NEGATIVE) Urine Cocaine (NEGATIVE) Urine Marijuana (THC) (NEGATIVE) Ethyl Alcohol (0-10) mg/dL - Progress Progress: improved, re-examined Progress Note: 07/18/19 01:04 pt still confused. no sig chest pain. ekg 07/18/19 at 0057 hr 82, left axis deviation, persistent incomplet rbbb, persistent left ant fascicular block ct head-no acute findings. 07/18/19 05:32 pts confusion is improving. pt now aswering questions normally and briskly. pt states he did start his gabapentin 07/04/19. he has been increasing his dosage to TID. it helps him sleep but he does notice he is more sleepy. 07/18/19 05:49 cta chest-no acute process. no pulm emboli. 07/18/19 05:49 if pt tolerates breakfast, ambulates well will discharge to home 07/18/19 06:30 i reinforced with pt the need to stop his metformin for 48 hours before restarting secondary to cta contrast study. i also expressed the need to discuss with his gabapentin prescribing doctor about adjusting his dosage. Counseled pt/family regarding: lab results, diagnosis, need for follow-up, rad results - Departure Departure Disposition: Home Clinical Impression: Confusion caused by a drug, Medication reaction Condition: Stable Critical Care Time: No Referrals: LIZET SANABRIA [Primary Care Provider] - Additional Instructions: drink plenty of fluids. follow up prescribing physician for further management
[2019-07-17] MEDS ORDERED: Sodium Chloride 0.9% 1000 ML 1,000 ML ONE (22:02)
[2019-07-17] MEDS: Sodium Chloride 0.9% 1000 ML 1,000 ML IV STA (22:03)
[2019-07-17 22:14] LABS: Absolute Neutrophil Ct (ANC) 5.93 (1.4-6.9); BASOPHIL % 0.1 % (0.0-0.4); Basophil (Absolute #) 0.01 (0-0.4); Eosinophil % 1.5 % (0.00-5.0); Eosinophil (Absolute #) 0.11 (0-0.5); Hematocrit 37.6 % (42-50); Hemoglobin 11.7 gm/dl (12.5-18.0); Lymphocyte (Absolute #) 0.93 (1.0-4.6); Lymphocytes % 12.4 % (24.0-44.0); Mean Cell Volume 90.6 fl (78-100); Mean Corpuscular Hgb Concent. 31.1 g/dl (32-36); Mean Platelet Volume 11.5 fl (6-9.5); Monocyte (Absolute #) 0.53 (0.0-1.3); Monocytes % 7.1 % (0.0-12.0); Neutrophil % 78.9 % (36.0-66.0); Platelet Count 174 K/mm3 (150-450); Red Blood Count 4.15 M/mm3 (4.1-5.6); Red Cell Distribution Width 15.3 % (11.5-14.0); White Blood Count 7.5 K/mm3 (4.0-10.5)
[2019-07-17 22:20] LABS: Mean Corpuscular Hemoglobin 28.1 pg (26-32)
[2019-07-17 22:22] LABS: INR 0.98 (0.8-3.0); PROTIME 11.1 SECONDS (8.83-12.87)
[2019-07-17 22:36] LABS: ALBUMIN 3.7 g/dL (3.5-5.0); ANION GAP 14.9 MEQ/L (5-15); BILIRUBIN,TOTAL 0.3 mg/dL (0.2-1.3); Calcium 9.4 mg/dL (8.4-10.2); Creatinine 1 1.35 mg/dL (0.66-1.25); Potassium 4.2 mmol/L (3.5-5.1); Total Protein 6.9 g/dL (6.3-8.2)
[2019-07-18] MEDS ORDERED: Sodium Chloride 0.9% 1000 ML 1,000 ML ONE (01:12)
[2019-07-18] MEDS: Sodium Chloride 0.9% 1000 ML 1,000 ML IV SCH (01:13)
[2019-07-18 02:35] LABS: Appearance SLIGHTLY CLOUDY (CLEAR); Bilirubin NEGATIVE (NEGATIVE); Blood SMALL Ery/ul (0-5); Glucose NEGATIVE (NEGATIVE); Hyaline Casts 26-50 /LPF (0-2); Ketones NEGATIVE (NEGATIVE); Leukocyte Esterase NEGATIVE (NEGATIVE); Mucus SLIGHT /HPF (NEGATIVE); Nitrite NEGATIVE (NEGATIVE); Protein,Urine Dip >=500 (Negative); Specific Gravity 1.014 (1.005-1.025); Urobilinogen NEGATIVE mg/dL (0-1)
[2019-07-18 02:47] LABS: Amphetamine,Urine NEGATIVE (NEGATIVE); Barbiturate,Urine NEGATIVE (NEGATIVE); Benzodiazepine,Urine NEGATIVE (NEGATIVE); Cocaine,Urine NEGATIVE (NEGATIVE); Methadone,Urine NEGATIVE (NEGATIVE); Opiate,Urine NEGATIVE (NEGATIVE); PCP,Urine NEGATIVE (NEGATIVE); THC,Urine NEGATIVE (NEGATIVE)
[2019-07-18 05:22] VITALS: BP 146/89; PULSE 80; O2SAT 96
--- NOTE | 2019-07-18 09:30 | XRAY ---
Indication: Right frontal pain. Confusion. Multiple contiguous axial images obtained through the head without contrast. Comparison: None Age-appropriate global atrophy with minimal periventricular degenerative micro-ischemia bilaterally. No acute intracranial hemorrhage, abnormal extra-axial fluid collection, or mass effect. Fourth ventricle is midline without hydrocephalus. Karimi-white matter differentiation preserved. Bony calvarium intact. Visualized paranasal sinuses and mastoid air cells are clear. Impression: Normal aging brain including atrophy and degenerative micro-ischemia. No acute intracranial abnormalities. Comment: Preliminary interpretation was made by [facility]. No critical discrepancy. CT DI 87.81
--- NOTE | 2019-07-18 09:36 | XRAY ---
Indication: Mid chest pain. Elevated d-dimer. Confusion. Multiple contiguous axial images obtained through the chest using 80 cc Isovue 370 contrast and PE protocol. Comparison: October 06, 2018. There is suboptimal opacification of the pulmonary arteries limiting evaluation of the more distal lobar and segmental branches. No central pulmonary embolus. Heart is not enlarged with interval CABG surgery. Aorta remains minimally arteriosclerotic without aneurysm/dissection. Stable small mediastinal lymph nodes, none pathologically enlarged. Stable subcarinal and right infrahilar calcified nodes. Examination of the lung parenchyma demonstrates minimal bilateral dependent atelectasis. There remains mild scattered fibrosis/scarring and right lower lobe calcified granulomas. No infiltrate or effusion. Bony thorax again demonstrate mild degenerative changes throughout the spine. New sternotomy wires. Limited upper abdomen again demonstrates mild fatty liver and 13.2 cm splenomegaly with calcified splenic granuloma. Impression: 1. Pulmonary embolus evaluation limited due to suboptimal opacification. No central pulmonary embolus or acute cardiopulmonary abnormalities. 2. Again incidental fatty liver, splenomegaly, and evidence for old granulomatous disease. Comment: Preliminary interpretation was made by [facility]. No critical discrepancy. CT DI 32.09
== END 2019-07-18 06:52 | disposition home or self-care (01) ==
LOC: ED 21:15
DX: R41.0 Disorientation, unspecified (principal); T50.995A Adverse effect of other drugs, medicaments and biological substances, initial encounter; Z79.899 Other long term (current) drug therapy; R07.9 Chest pain, unspecified; I25.10 Atherosclerotic heart disease of native coronary artery without angina pectoris; Z95.1 Presence of aortocoronary bypass graft; R41.82 Altered mental status, unspecified; Z86.711 Personal history of pulmonary embolism; Z79.84 Long term (current) use of oral hypoglycemic drugs; Z79.4 Long term (current) use of insulin; I50.9 Heart failure, unspecified; E78.00 Pure hypercholesterolemia, unspecified; I10 Essential (primary) hypertension; E11.9 Type 2 diabetes mellitus without complications
CPT/HCPCS: 36000; 36415; 70450; 71260; 80053; 80307; 81001; 82140; 84484; 85025; 85379; 85610; 87086; 93005; 93041; 94760; 96360; 99285; G0480

== ENCOUNTER 2019-08-28 15:46 | Emergency (ER) | payer MEDICARE, OTHER ==
--- NOTE | 2019-08-28 16:07 | ERPHSYRPT ---
- History of Present Illness Time Seen by Provider: 08/28/19 16:06 Source: patient Exam Limitations: no limitations Physician History: The patient is a 64-year-old male who presents with a chief complaint of left- sided rib pain and left upper quadrant abdominal pain after a mechanical fall at the place estimated one hour prior to arrival. He reportedly was walking to his front door of his home when he tripped over her shoelace and fell. Of note, the patient reports that he takes apixaban for anticoagulation and reportedly hit his head. There was no loss of consciousness reported. The pain is described as a sharp pain, nonradiating, constant and currently mild but increases whenever he takes a deep breath. He arrives EMS with a c-collar providing spinal restriction in addition he received 50 mcg of fentanyl IM as well as 50 mcg of fentanyl intranasally because they were unable to obtain IV access. The patient had no additional complaints. Allergies/Adverse Reactions: gabapentin Adverse Reaction (Verified 08/28/19 16:07) Home Medications: Metformin HCl [Glucophage] 1,000 mg PO BID 01/22/17 [History] Carvedilol 12.5 mg [Coreg 12.5 mg] 25 mg PO BID 10/06/18 [History] Glipizide [Glipizide ER] 10 mg PO DAILY 10/06/18 [History] Hydrochlorothiazide 25 mg [hydroDIURIL 25 MG] 25 mg PO DAILY 10/06/18 [ History] Atorvastatin Calcium [Lipitor] 40 mg PO DAILY 05/26/19 [History] Duloxetine HCl [Cymbalta] 60 mg PO DAILY 05/26/19 [History] Losartan Potassium 50 mg [Cozaar 50 MG] 50 mg PO DAILY 05/26/19 [History] Furosemide 40 mg [Lasix 40 MG] 1 tab PO DAILY 07/18/19 [History] Rivaroxaban [Xarelto] 20 mg PO DAILY 08/28/19 [History] Hx Tetanus, Diphtheria Vaccination/Date Given: No Hx Influenza Vaccination/Date Given: Yes Hx Pneumococcal Vaccination/Date Given: No - Review of Systems Constitutional: No Symptoms Respiratory: No Symptoms, No Dyspnea, No Dyspnea on Exertion ([place]) Cardiac: Other (Left sided rib pain) Abdominal/Gastrointestinal: Abdominal Pain, No Nausea, No Vomiting Genitourinary Symptoms: No Symptoms Musculoskeletal: Neck Pain, Fall, No Deformity Skin: Skin Lesions, Other (Skin lesions/wounds to bilateral lower extremities the that are reportedly old) Neurological: Headache, No Dizziness, No Focal Weakness Psychological: No Symptoms - Past Medical History Pertinent Past Medical History: Yes Neurological History: No Pertinent History ENT History: No Pertinent History Cardiac History: Congestive Heart Failure, High Cholesterol, Hypertension Respiratory History: CHF, COPD Endocrine Medical History: Diabetes Type II Musculoskeletal History: Osteoarthritis GI Medical History: No Pertinent History History: No Pertinent History Psycho-Social History: No Pertinent History Male Reproductive Disorders: No Pertinent History Other Medical History: pt states he quit smoking three days ago. - Past Surgical History Past Surgical History: Yes (DECEMBER TRIPLE BYPASS) Neuro Surgical History: No Pertinent History Cardiac: Other Respiratory: No Pertinent History, Chest Surgery Gastrointestinal: No Pertinent History Genitourinary: No Pertinent History Musculoskeletal: No Pertinent History Male Surgical History: No Pertinent History - Social History Smoking Status: Current every day smoker How long have you smoked: 25 Exposure to second hand smoke: Yes Drug Use: none Patient Lives Alone: No - Nursing Vital Signs Nursing Vital Signs: Initial Vital Signs Temperature 98.2 F 08/28/19 15:50 Pulse Rate 75 08/28/19 15:50 Respiratory Rate 20 08/28/19 15:50 Blood Pressure 138/74 08/28/19 15:50 O2 Sat by Pulse Oximetry 92 L 08/28/19 15:50 Pain Scale Pain Intensity 4 - Daysi Coma Score Best Eye Response (Daysi): (4) open spontaneously Best Verbal Response (Daysi): (5) oriented Best Motor Response ([place]): (6) obeys commands Daysi Total: 15 - Physical Exam General Appearance: no apparent distress Head Injury: no evidence of injury, No Billy's Sign, No ecchymosis, No swelling Eye Exam: PERRL/EOMI, eyes nml inspection, No photophobia ENT Exam: airway nml Neck Exam: supple, trachea midline, other (Tenderness with no deformity, step- off, or crepitus noted to the posterior cervical spine. C-collar in place) Respiratory/Chest Exam: chest tenderness, normal breath sounds, palpable fracture, other (Tenderness noted to the left chest wall with no visible injury noted), No respiratory distress, No ecchymosis, No accessory muscle use, No subcutaneous emphysema, No paradoxical movements, No splinting Cardiovascular Exam: normal heart sounds, regular rate/rhythm, normal peripheral pulses, edema, No JVD, No pulse deficit Gastrointestinal Exam: tenderness, other (LUQ tenderness with no) Back Exam: normal inspection Extremity Exam: pelvis stable (No hip tenderness and the patient was able to lift both legs/hip flex without difficulty and no pain to pelvis or hips with axial loading), other (Low extremities with evidence of chronic lymphedema and chronic appearing wounds), No motor deficit, No pain with movement Neurologic Exam: alert, oriented x 3, cooperative Skin Exam: other (Chronic appearing wound noted to lower extremities ) SpO2 Interpretation: normal O2 Delivery: Room Air - Course Nursing assessment & vital signs reviewed: Yes EKG Interpreted by Me: RATE, Sinus Rhythm, Left [place] Deviation, Right Bundle Branch Block, Other (EKG reviewed at 16:45 Sinus rhythm with vent rate of 74 bpm, QRS 124 ms) - CT Exams Head CT Interpretation: Negative Cervical Spine CT Interpretation: Negative (Chronic degenerative changes) Chest CT Interpretation: Other (Old left 1st rib fracture) Abdomen/Pelvis CT Interpretation: Other (Splenomegaly otherwise no acute process) Lab/Rad Data: Laboratory Result Diagrams 08/28/19 16:15 08/28/19 16:15 Laboratory Results 08/28/19 08/28/19 Range/Units 16:15 16:15 WBC 5.9 (4.0-10.5) K/mm3 RBC 3.92 L (4.1-5.6) M/mm3 Hgb 11.2 L (12.5-18.0) gm/dl Hct 35.3 L (42-50) % MCV 90.1 (78-100) fl MCH 28.5 (26-32) pg MCHC 31.7 L (32-36) g/dl RDW 14.4 H (11.5-14.0) % Plt Count 177 (150-450) K/mm3 MPV 11.9 H (6-9.5) fl Gran % 75.1 H (36.0-66.0) % Eos # (Auto) 0.07 (0-0.5) Absolute Lymphs (auto) 0.98 L (1.0-4.6) Absolute Monos (auto) 0.40 (0.0-1.3) Lymphocytes % 16.7 L (24.0-44.0) % Monocytes % 6.8 (0.0-12.0) % Eosinophils % 1.2 (0.00-5.0) % Basophils % 0.2 (0.0-0.4) % Absolute Granulocytes 4.41 (1.4-6.9) Basophils # 0.01 (0-0.4) Sodium 142 (137-145) mmol/L Potassium 4.0 (3.5-5.1) mmol/L Chloride 105 (98-107) mmol/L Carbon Dioxide 30 (22-30) mmol/L Anion Gap 11.2 (5-15) MEQ/L BUN 43 H (9-20) mg/dL Creatinine 1.25 (0.66-1.25) mg/dL Estimated GFR > 60.0 ML/MIN Glucose 159 H (74-106) mg/dL Calcium 9.4 (8.4-10.2) mg/dL Ethyl Alcohol < 10 (0-10) mg/dL - Progress Progress: unchanged Progress Note: 08/28/19 19:24 ddisability and is due to an issue with getting a radiology report back. Evidently the radiologist had read the patient's interpretation of his CTs on a written piece of paper and I conveyed this to me by the radiology staff. Eventually I got the report and to me by the radiology techs. It appears he has no acute injuries and evidence of bilateral inguinal hernias and multilevel degenerative disc disease in the cervical spine and an old left first rib fracture. His head CT was negative. His abdominal CT was relatively benign as well with the exception of splenomegaly and diffuse fecal stasis. Counseled pt/family regarding: lab results, diagnosis, need for follow-up, rad results - Departure Departure Disposition: Home Clinical Impression: Contusion of rib on left side, Fall, Microcytic anemia Condition: Stable Critical Care Time: No Referrals: LIZET SANABRIA [Primary Care Provider] - Instructions: Preventing Falls, Bruised Rib (DC) Plan of Treatment: Nontoxic in appearance. The patient presents with a mechanical fall and L rib pain and neck pain. HCT, cervical spine CT, chest/abdomen pelvis CT negative for acute injuries. The patient c-spine was clinically cleared and after which he demonstrated the ability to ambulate around the ED without difficulty, specifically without hip pain and was discharge karla.
[2019-08-28 16:35] LABS: Absolute Neutrophil Ct (ANC) 4.41 (1.4-6.9); BASOPHIL % 0.2 % (0.0-0.4); Basophil (Absolute #) 0.01 (0-0.4); Eosinophil % 1.2 % (0.00-5.0); Eosinophil (Absolute #) 0.07 (0-0.5); Hematocrit 35.3 % (42-50); Hemoglobin 11.2 gm/dl (12.5-18.0); Lymphocyte (Absolute #) 0.98 (1.0-4.6); Lymphocytes % 16.7 % (24.0-44.0); Mean Cell Volume 90.1 fl (78-100); Mean Corpuscular Hgb Concent. 31.7 g/dl (32-36); Mean Platelet Volume 11.9 fl (6-9.5); Monocytes % 6.8 % (0.0-12.0); Neutrophil % 75.1 % (36.0-66.0); Platelet Count 177 K/mm3 (150-450); Red Blood Count 3.92 M/mm3 (4.1-5.6); Red Cell Distribution Width 14.4 % (11.5-14.0); White Blood Count 5.9 K/mm3 (4.0-10.5)
[2019-08-28 16:39] LABS: ANION GAP 11.2 MEQ/L (5-15); BLOOD UREA NITROGEN 43 mg/dL (9-20); CHLORIDE 105 mmol/L (98-107); Calcium 9.4 mg/dL (8.4-10.2); Carbon Dioxide 30 mmol/L (22-30); Creatinine 1 1.25 mg/dL (0.66-1.25); Glucose 159 mg/dL (74-106); SODIUM 142 mmol/L (137-145)
[2019-08-28 16:40] LABS: Mean Corpuscular Hemoglobin 28.5 pg (26-32)
[2019-08-28 16:41] LABS: ETHYL ALCOHOL < 10 mg/dL (0-10)
[2019-08-28 18:29] VITALS: O2SAT 93
[2019-08-28 18:52] VITALS: BP 133/74; PULSE 71
--- NOTE | 2019-08-29 08:34 | XRAY ---
Indication: Left head injury following fall. Multiple contiguous axial images obtained through the head without contrast. Comparison: July 17, 2019. Stable age-appropriate global atrophy and minimal periventricular degenerative micro-ischemia. Again no acute intracranial hemorrhage, abnormal extra-axial fluid collection, or mass effect. Fourth ventricle is midline without hydrocephalus. Bony calvarium intact. Visualized paranasal sinuses and mastoid air cells are clear. Impression: Stable nonacute senile brain. CT DI 45.01
--- NOTE | 2019-08-29 08:39 | XRAY ---
Indication: Neck pain following fall. Multiple contiguous axial images obtained through the cervical spine. Sagittal and coronal reformatted images obtained. Comparison: None Axial images negative for acute fracture, suspicious bony lesions, or spinal canal stenosis. There is mild C4-C7 degenerative endplate spurring and minimal/mild multilevel bilateral degenerative facet hypertrophy. Additional atlantoaxial degenerative changes. Sagittal and coronal reformatted images demonstrates normal alignment with C5-C7 disc space narrowing. No acute compression fracture, subluxation, or jumped facet. Normal appearing craniocervical junction. Visualized noncontrasted soft tissues demonstrates mild scattered carotid calcifications bilaterally. CT head and CT chest report assembly. Impression: 1. Negative acute fracture/subluxation. 2. Multilevel degenerative changes. CT DI 63.88
--- NOTE | 2019-08-29 08:46 | XRAY ---
Indication: Left-sided chest pain following fall. Multiple contiguous axial images obtained through the chest using 80 cc Isovue 370 contrast. Comparison: July 18, 2019. Lungs again demonstrate mild bilateral dependent atelectasis, minimal scattered fibrosis/scarring, and right lower lobe calcified granuloma. No infiltrate, effusion, or pneumothorax. Heart is now enlarged again with previous CABG surgery. Aorta remains millimeters sclerotic without aneurysm/dissection. Stable small subcarinal and right infrahilar calcified nodes. No pathologic mediastinal/hilar lymphadenopathy. Bony thorax intact again with mild degenerative changes throughout the spine, old left 1 rib fracture, and sternotomy wires. CT abdomen reported separately. Impression: 1. New cardiomegaly without CHF. 2. Again chronic bony findings and evidence for old granulomatous disease. 3. Remaining CT chest with contrast exam is negative. CTDI 23.63
--- NOTE | 2019-08-29 08:50 | XRAY ---
Indication: Left-sided pain following fall. Multiple contiguous axial images obtained through the abdomen and pelvis using 80 cc Isovue 370 contrast only. Comparison: May 04, 2018. CT chest reported separately. Stomach is now distended with food/fluid. Noncontrasted stomach and bowel loops appear nonobstructed. Normal appendix. There is again mild diffuse scattered colonic fecal debris throughout including rectum. No free fluid/air. Stable mild fatty liver and 14.5 cm splenomegaly with calcified granuloma. Remaining liver, gallbladder, pancreas, spleen, adrenal glands, kidneys, ureters, and bladder appear unremarkable. There remains mild scattered aortoiliac calcifications. No AAA or pathologic retroperitoneal lymphadenopathy. Osseous structures intact again with mild/moderate degenerative changes throughout the thoracolumbar spine. Stable small bilateral fatty inguinal hernias. Impression: 1. Again diffuse fecal stasis, splenomegaly, fatty liver, and small bilateral fatty inguinal hernias. 2. Remaining CT abdomen/pelvis with contrast exam is negative. CT DI 22.30
== END 2019-08-28 19:45 | disposition home or self-care (01) ==
LOC: ED 15:46
DX: S20.212A Contusion of left front wall of thorax, initial encounter (principal); D50.9 Iron deficiency anemia, unspecified; W01.0XXA Fall on same level from slipping, tripping and stumbling without subsequent striking against object, initial encounter; I50.9 Heart failure, unspecified; E78.00 Pure hypercholesterolemia, unspecified; I10 Essential (primary) hypertension; E11.9 Type 2 diabetes mellitus without complications; J44.9 Chronic obstructive pulmonary disease, unspecified; Z79.899 Other long term (current) drug therapy
CPT/HCPCS: 36000; 36415; 70450; 71260; 72125; 74177; 80048; 85025; 93005; 99284; G0480; 80307

== ENCOUNTER 2019-12-27 07:10 | Emergency (ER) | payer MEDICARE, OTHER ==
[2019-12-27] MEDS ORDERED: Hydromorphone 1 mg/ml Ampule IM ONE (07:24)
[2019-12-27] MEDS ORDERED: Phenergan 25 MG INJ IM ONE (07:24)
--- NOTE | 2019-12-27 07:24 | ERPHSYRPT ---
- History of Present Illness Time Seen by Provider: 12/27/19 07:20 Source: patient, family Exam Limitations: no limitations Physician History: This is a 64-year-old diabetic gentleman who presents with approximately 2-day history of left foot pain. The patient does have a history of peripheral neuropathy. He was placed on gabapentin in the past but had the reaction of severe confusion on it so that medicine was stopped. Patient does not recall any injury to his left foot. The pain is on the top of his left foot. This morning his pain was worse so he came to the emergency department for evaluation Method of Injury: unknown Occurred: days ago (2) Quality: sharpness, stabbing Severity of Pain-Max: moderate Severity of Pain-Current: moderate Lower Extremities Pain: foot: left (Top of his left foot) Modifying Factors: Improves With: movement, other (Ambulating) Associated Symptoms: other (Hurts to bear weight) Allergies/Adverse Reactions: gabapentin Adverse Reaction (Verified 12/27/19 07:29) Home Medications: Metformin HCl [Glucophage] 1,000 mg PO BID 01/22/17 [History] Carvedilol 12.5 mg [Coreg 12.5 mg] 25 mg PO BID 10/06/18 [History] Glipizide [Glipizide ER] 10 mg PO DAILY 10/06/18 [History] Hydrochlorothiazide 25 mg [hydroDIURIL 25 MG] 25 mg PO DAILY 10/06/18 [ History] Atorvastatin Calcium [Lipitor] 40 mg PO DAILY 05/26/19 [History] Duloxetine HCl [Cymbalta] 60 mg PO DAILY 05/26/19 [History] Losartan Potassium 50 mg [Cozaar 50 MG] 50 mg PO DAILY 05/26/19 [History] Furosemide 40 mg [Lasix 40 MG] 1 tab PO DAILY 07/18/19 [History] Rivaroxaban [Xarelto] 20 mg PO DAILY 08/28/19 [History] Hx Tetanus, Diphtheria Vaccination/Date Given: No Hx Influenza Vaccination/Date Given: Yes Hx Pneumococcal Vaccination/Date Given: No - Review of Systems Constitutional: No Symptoms Eyes: No Symptoms Ears, Nose, & Throat: No Symptoms Respiratory: No Symptoms Cardiac: No Symptoms Abdominal/Gastrointestinal: No Symptoms Genitourinary Symptoms: No Symptoms Musculoskeletal: Other (Left foot pain) Skin: No Symptoms Neurological: No Symptoms Psychological: No Symptoms Endocrine: No Symptoms Hematologic/Lymphatic: No Symptoms Immunological/Allergic: No Symptoms All Other Systems: Reviewed and Negative - Past Medical History Pertinent Past Medical History: Yes Neurological History: No Pertinent History ENT History: No Pertinent History Cardiac History: Congestive Heart Failure, High Cholesterol, Hypertension Respiratory History: CHF, COPD Endocrine Medical History: Diabetes Type II Musculoskeletal History: Osteoarthritis GI Medical History: No Pertinent History History: No Pertinent History Psycho-Social History: No Pertinent History Male Reproductive Disorders: No Pertinent History Other Medical History: pt states he quit smoking three days ago. - Past Surgical History Past Surgical History: Yes (DECEMBER TRIPLE BYPASS) Neuro Surgical History: No Pertinent History Cardiac: Other Respiratory: No Pertinent History, Chest Surgery Gastrointestinal: No Pertinent History Genitourinary: No Pertinent History Musculoskeletal: No Pertinent History Male Surgical History: No Pertinent History - Social History Smoking Status: Current every day smoker How long have you smoked: 25 Exposure to second hand smoke: Yes Drug Use: none Patient Lives Alone: No - Nursing Vital Signs Nursing Vital Signs: Initial Vital Signs Temperature 97 F 12/27/19 07:17 Pulse Rate 88 12/27/19 07:17 Respiratory Rate 20 12/27/19 07:17 Blood Pressure 109/63 12/27/19 07:17 O2 Sat by Pulse Oximetry 97 12/27/19 07:17 Pain Scale Pain Intensity 8 - Physical Exam General Appearance: mild distress, alert, anxiety Eyes, Ears, Nose, Throat Exam: normal ENT inspection, moist mucous membranes Neck Exam: normal inspection, non-tender, supple, full range of motion Cardiovascular/Respiratory Exam: chest non-tender Gastrointestinal/Abdominal Exam: non-tender Back Exam: normal inspection, normal range of motion, No CVA tenderness, No vertebral tenderness Hips Exam: bilateral: non-tender, normal inspection, normal range of motion, no evidence of injury Legs Exam: bilateral leg: non-tender, normal inspection, normal range of motion , no evidence of injury Knees Exam: bilateral knee: non-tender, normal inspection, normal range of motion, no evidence of injury Ankle Exam: bilateral ankle: non-tender, normal inspection, normal range of motion, no evidence of injury Foot Exam: left foot: soft tissue tenderness, bilateral foot: normal inspection , normal range of motion, no evidence of injury Neuro/Tendon Exam: normal motor functions, normal tendon functions, no evidence tendon injury, sensory deficit Mental Status Exam: alert, oriented x 3, cooperative Skin Exam: normal color, warm, dry SpO2 Interpretation: normal O2 Delivery: Room Air Ordered Tests: Active Orders 24 hr Category Date Time Status FOOT (MINIMUM 3 VIEWS) Stat Exams 12/27/19 07:25 Completed Medication Summary Discontinued Medications Generic Name Dose Route Start Last Admin Trade Name Freq PRN Reason Stop Dose Admin Hydromorphone HCl 1 mg 12/27/19 07:24 12/27/19 07:40 Hydromorphone 1 Mg/Ml Ampule IM 12/27/19 07:25 1 mg STAT ONE Administration Hydromorphone HCl Confirm 12/27/19 07:31 Hydromorphone 1 Mg/Ml Ampule Administered 12/27/19 07:32 Dose 1 mg .ROUTE .STK-MED ONE Promethazine HCl 12.5 mg 12/27/19 07:24 12/27/19 07:41 Phenergan 25 Mg Inj IM 12/27/19 07:25 12.5 mg STAT ONE Administration Promethazine HCl Confirm 12/27/19 07:30 Phenergan 25 Mg Inj Administered 12/27/19 07:31 Dose 25 mg .ROUTE .STK-MED ONE - Progress Progress: improved, pain not gone completely Progress Note: 12/27/19 08:50 X-ray left foot reveals no evidence of acute fracture or dislocation Counseled pt/family regarding: diagnosis, need for follow-up, rad results - Departure Departure Disposition: Home Clinical Impression: Left foot pain Condition: Stable Critical Care Time: No Referrals: LIZET SANABRIA [Primary Care Provider] - Additional Instructions: Fill the prescription sent to your pharmacy. Follow-up with your primary care physician for further management of your pain. Prescriptions: Oxycodone HCl/Acetaminophen [Percocet 5-325 mg Tablet] 1 each PO Q6H PRN PRN # 10 tablet MDD 4 PRN Reason: Pain
[2019-12-27] MEDS ORDERED: Phenergan 25 MG INJ ONE (07:30)
[2019-12-27] MEDS ORDERED: Hydromorphone 1 mg/ml Ampule ONE (07:31)
--- NOTE | 2019-12-27 08:47 | XRAY ---
Indication: Lateral pain. Comparison: None 3 nonweightbearing views of the left foot demonstrates plantar metallic shrapnel posteriorly, small posterior heel spur, navicular accessory ossicle, and mild scattered vascular calcifications. No other bony, articular, or soft tissue abnormalities.
[2019-12-27 09:17] VITALS: BP 135/79; PULSE 76; O2SAT 96
== END 2019-12-27 09:16 | disposition home or self-care (01) ==
LOC: ED 07:10
DX: G62.9 Polyneuropathy, unspecified (principal); E11.9 Type 2 diabetes mellitus without complications; Z79.4 Long term (current) use of insulin; Z79.899 Other long term (current) drug therapy; I50.9 Heart failure, unspecified; I10 Essential (primary) hypertension; J44.9 Chronic obstructive pulmonary disease, unspecified
CPT/HCPCS: 73630; 96372; 99284; J1170; J2550

== ENCOUNTER 2020-04-06 13:54 | Emergency (ER) | payer MEDICARE, OTHER ==
[2020-04-06] MEDS ORDERED: XYLOCAINE 1% HCL 20 ML MDV IJ ONE (13:55)
--- NOTE | 2020-04-06 14:00 | ERPHSYRPT ---
- History of Present Illness Time Seen by Provider: 04/06/20 14:00 Source: patient Exam Limitations: no limitations Physician History: This is a 64-year-old obese diabetic gentleman with a history of hypertension, CHF, coronary disease and COPD who presents with an opening on the bottom of his right foot that is tender. Patient states that he has noticed a callus that was closed in this area for 4 to 5 months. In the last 2 to 3 days this callus has opened up. He has been picking at it and digging at it per his report. It is now very tender today. Patient has had a diabetic foot ulcer in the same area in the distant past. Patient's clubhouse attendant, Dr. Morgan, treated this in the past and it closed. Patient was going to call clubhouse attendant office on Wednesday to make a follow-up appointment. Patient has been afebrile at home. There is been no significant drainage present. However there is a mild odor present. Method of Injury: other (No injury) Occurred: days ago (2-3) Quality: sharpness, stabbing Severity of Pain-Max: moderate Severity of Pain-Current: moderate Lower Extremities Pain: foot: right (Plantar surface.) Modifying Factors: Improves With: other (Walking on it) Associated Symptoms: other (Hurts to weight-bear) Allergies/Adverse Reactions: gabapentin Adverse Reaction (Verified 04/06/20 14:19) Home Medications: Metformin HCl [Glucophage] 1,000 mg PO BID 01/22/17 [History] Carvedilol 12.5 mg [Coreg 12.5 mg] 25 mg PO BID 10/06/18 [History] Glipizide [Glipizide ER] 10 mg PO DAILY 10/06/18 [History] Hydrochlorothiazide 25 mg [hydroDIURIL 25 MG] 25 mg PO DAILY 10/06/18 [History] Atorvastatin Calcium [Lipitor] 40 mg PO DAILY 05/26/19 [History] Duloxetine HCl [Cymbalta] 60 mg PO DAILY 05/26/19 [History] Losartan Potassium 50 mg [Cozaar 50 MG] 50 mg PO DAILY 05/26/19 [History] Furosemide 40 mg [Lasix 40 MG] 1 tab PO DAILY 07/18/19 [History] Hx Tetanus, Diphtheria Vaccination/Date Given: No Hx Influenza Vaccination/Date Given: Yes Hx Pneumococcal Vaccination/Date Given: No Travel Risk - International Travel Have you traveled outside of the country in past 3 weeks: No - Coronavirus Screening Are you exhibiting any of the following symptoms?: No Close contact with a COVID-19 positive Pt in past 14-21 Days: No - Review of Systems Constitutional: No Symptoms Eyes: No Symptoms Ears, Nose, & Throat: No Symptoms Respiratory: No Symptoms (Kidney function) Cardiac: No Symptoms Abdominal/Gastrointestinal: No Symptoms Genitourinary Symptoms: No Symptoms Musculoskeletal: No Symptoms Skin: Other (Diabetic foot ulcer right foot plantar surface) Neurological: No Symptoms Psychological: No Symptoms Endocrine: No Symptoms Hematologic/Lymphatic: No Symptoms Immunological/Allergic: No Symptoms All Other Systems: Reviewed and Negative - Past Medical History Pertinent Past Medical History: Yes Neurological History: No Pertinent History ENT History: No Pertinent History Cardiac History: Congestive Heart Failure, Coronary Artery Disease, Peripheral Vascular Disease Respiratory History: COPD Endocrine Medical History: Diabetes Type II Musculoskeletal History: Osteoarthritis GI Medical History: No Pertinent History History: No Pertinent History Psycho-Social History: No Pertinent History Male Reproductive Disorders: No Pertinent History Other Medical History: pt states he quit smoking three days ago. - Past Surgical History Past Surgical History: Yes (DECEMBER TRIPLE BYPASS) Neuro Surgical History: No Pertinent History Cardiac: Other Respiratory: No Pertinent History, Chest Surgery Gastrointestinal: No Pertinent History Genitourinary: No Pertinent History Musculoskeletal: No Pertinent History Male Surgical History: No Pertinent History - Social History Smoking Status: Current every day smoker How long have you smoked: 25 Exposure to second hand smoke: Yes Drug Use: none Patient Lives Alone: No - Nursing Vital Signs Nursing Vital Signs: Initial Vital Signs Temperature 99.0 F 04/06/20 14:03 Pulse Rate 87 04/06/20 14:03 Blood Pressure 165/86 04/06/20 14:03 O2 Sat by Pulse Oximetry 94 L 04/06/20 14:03 Pain Scale Pain Intensity 6 - Physical Exam General Appearance: no apparent distress, alert, anxiety Eyes, Ears, Nose, Throat Exam: normal ENT inspection, moist mucous membranes Neck Exam: normal inspection, non-tender, supple, full range of motion Cardiovascular/Respiratory Exam: chest non-tender Gastrointestinal/Abdominal Exam: non-tender Back Exam: normal inspection, normal range of motion, No CVA tenderness, No vertebral tenderness Hips Exam: bilateral: non-tender, normal inspection, normal range of motion, no evidence of injury Legs Exam: bilateral leg: non-tender, normal inspection, normal range of motion, no evidence of injury Knees Exam: bilateral knee: non-tender, normal inspection, normal range of motion, no evidence of injury Ankle Exam: bilateral ankle: non-tender, normal inspection, normal range of motion, no evidence of injury Foot Exam: right foot: normal range of motion, other (2 cm x 1 cm diabetic foot ulcer plantar surface. Mild odor. No significant drainage. No cellulitis present. There is a nory-wound callus present.), left foot: non-tender, normal inspection Neuro/Tendon Exam: normal sensation, normal motor functions, normal tendon functions Mental Status Exam: alert, oriented x 3, cooperative Skin Exam: other (See above) O2 Delivery: Room Air - Course Nursing assessment & vital signs reviewed: Yes Ordered Tests: Active Orders 24 hr Category Date Time Status BLOOD CULTURE Stat Lab 04/06/20 14:34 Ordered BMP Stat Lab 04/06/20 14:34 Ordered CBC W DIFF Stat Lab 04/06/20 14:34 Ordered CULTURE,WOUND Stat Lab 04/06/20 14:34 Uncollected - Progress Progress: unchanged Counseled pt/family regarding: lab results, diagnosis, need for follow-up - Departure Departure Disposition: Home Clinical Impression: Diabetic foot ulcer Condition: Stable Critical Care Time: No Referrals: LIZET SANABRIA [Primary Care Provider] - Additional Instructions: Follow-up with your clubhouse attendant on Wednesday, April 08, 2020. Keep the area clean daily with soap and water. Take your medications as prescribed. Use postoperative walking boot for comfort. Prescriptions: Oxycodone HCl/Acetaminophen [Percocet 5-325 mg Tablet] 1 each PO Q8H PRN PRN #8 tablet MDD 3 PRN Reason: Pain Levofloxacin [Levaquin 500 MG Tablet] 500 mg PO DAILY #7 tablet
[2020-04-06] MEDS ORDERED: Levofloxacin 250MG Tablet PO STA (14:34)
[2020-04-06] MEDS ORDERED: Rocephin 1000 MG INJ IM ONE (14:35)
[2020-04-06] MEDS ORDERED: PERCOCET TABLET 5/325MG PO STA (14:36)
[2020-04-06] MEDS ORDERED: Sodium Chloride 0.9% 10 ML FLUSH Syringe IV PRN (15:30)
[2020-04-06] MEDS ORDERED: Rocephin 1000 MG INJ ONE (15:58)
[2020-04-06] MEDS ORDERED: PERCOCET TABLET 5/325MG ONE (15:58)
[2020-04-06] MEDS ORDERED: Levofloxacin 500 MG Tablet ONE (15:58)
[2020-04-06 16:11] VITALS: BP 154/87; PULSE 78; O2SAT 95
[2020-04-06 16:43] LABS: Hematocrit 33.9 % (42-50); Hemoglobin 10.4 gm/dl (12.5-18.0); Lymphocytes % 12.6 % (24.0-44.0); Mean Cell Volume 94.7 fl (78-100); Mean Corpuscular Hemoglobin 29.1 pg (26-32); Mean Corpuscular Hgb Concent. 30.7 g/dl (32-36); Monocytes % 7.5 % (0.0-12.0); Neutrophil % 77.4 % (36.0-66.0); Platelet Count 155 K/mm3 (150-450); Red Blood Count 3.58 M/mm3 (4.1-5.6); Red Cell Distribution Width 15.3 % (11.5-14.0); White Blood Count 6.8 K/mm3 (4.0-10.5)
[2020-04-06 16:44] LABS: Absolute Neutrophil Ct (ANC) 5.23 (1.4-6.9); BASOPHIL % 0.1 % (0.0-0.4); BLOOD UREA NITROGEN 37 mg/dL (9-20); Basophil (Absolute #) 0.01 (0-0.4); Eosinophil % 2.4 % (0.00-5.0); Eosinophil (Absolute #) 0.16 (0-0.5); Glucose 126 mg/dL (74-106); Lymphocyte (Absolute #) 0.85 (1.0-4.6); Monocyte (Absolute #) 0.51 (0.0-1.3)
[2020-04-06 16:45] LABS: CHLORIDE 108 mmol/L (98-107); Calcium 8.9 mg/dL (8.4-10.2); Carbon Dioxide 28 mmol/L (22-30); Potassium 4.4 mmol/L (3.5-5.1); SODIUM 143 mmol/L (137-145)
== END 2020-04-06 16:32 | disposition home or self-care (01) ==
LOC: ED 13:54
DX: E11.621 Type 2 diabetes mellitus with foot ulcer (principal); Z79.899 Other long term (current) drug therapy; Z79.84 Long term (current) use of oral hypoglycemic drugs; I50.9 Heart failure, unspecified; I25.10 Atherosclerotic heart disease of native coronary artery without angina pectoris; I73.9 Peripheral vascular disease, unspecified; J44.9 Chronic obstructive pulmonary disease, unspecified; E11.9 Type 2 diabetes mellitus without complications
CPT/HCPCS: 36415; 80048; 85025; 87040; 87070; 87077; 87186; 96372; 99284; J0696; A9270-GY

== ENCOUNTER 2020-05-29 17:26 | Emergency (ER) | payer MEDICARE, OTHER ==
--- NOTE | 2020-05-29 17:54 | ERPHSYRPT ---
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 pt states he tripped. pt states he had maybe 30 seconds of LOC. denies head injury, denies neck pain. pt states he has L rib and side pain from hitting the ground. Triage Nursing Assessment: pt arrived via EMS. pt A&Ox3. pt eyes PERRL. appears to be in no distress. Occurred: just prior to arrival Reason for Fall: lightheaded, lost balance, slipped, fell from standing pos Injuries/Pain Location: head, abdomen (Left lower ribs), lower (Left upper quadrant) Loss of Consciousness: brief (seconds) Severity of Pain-Max: moderate Severity of Pain-Current: moderate (Left lower ribs) Associated Symptoms (Fall): abdominal pain (Left upper quadrant), chest pain (Left lower ribs), dizziness, lightheadedness Allergies/Adverse Reactions: gabapentin Adverse Reaction (Verified 05/29/20 17:37) Home Medications: Metformin HCl [Glucophage] 500 mg PO BID 01/22/17 [History] Glipizide [Glipizide ER] 10 mg PO DAILY 10/06/18 [History] Atorvastatin Calcium [Lipitor] 40 mg PO DAILY 05/26/19 [History] Losartan Potassium 50 mg [Cozaar 50 MG] 50 mg PO DAILY 05/26/19 [History] Furosemide 40 mg [Lasix 40 MG] 1 tab PO BID 07/18/19 [History] Allopurinol [Zyloprim] 200 mg PO DAILY 04/26/20 [History] Ezetimibe 10 mg PO DAILY 04/26/20 [History] Insulin Glargine,Hum.rec.anlog [Basaglar Kwikpen U-100] 20 unit SQ DAILY 04/26/20 [History] PANTOPRAZOLE 40 mg Tablet [Protonix 40MG Tablet] 40 mg PO DAILY PRN PRN 04/26/20 [History] Ampicillin Trihydrate 500 mg PO DAILY 05/29/20 [History] Hx Tetanus, Diphtheria Vaccination/Date Given: No Hx Influenza Vaccination/Date Given: Yes Hx Pneumococcal Vaccination/Date Given: No Travel Risk - International Travel Have you traveled outside of the country in past 3 weeks: No - Coronavirus Screening Are you exhibiting any of the following symptoms?: No Close contact with a COVID-19 positive Pt in past 14-21 Days: No - Review of Systems Constitutional: No Symptoms Eyes: No Symptoms Ears, Nose, & Throat: No Symptoms Respiratory: No Symptoms Cardiac: No Symptoms Abdominal/Gastrointestinal: Abdominal Pain (Left upper quadrant) Genitourinary Symptoms: No Symptoms Musculoskeletal: Fall, Injury (Left lower ribs) Skin: No Symptoms Neurological: No Symptoms Psychological: No Symptoms Endocrine: No Symptoms Hematologic/Lymphatic: No Symptoms Immunological/Allergic: No Symptoms All Other Systems: Reviewed and Negative - Past Medical History Pertinent Past Medical History: Yes Neurological History: No Pertinent History ENT History: No Pertinent History Cardiac History: Congestive Heart Failure, Coronary Artery Disease, Peripheral Vascular Disease Respiratory History: COPD Endocrine Medical History: Diabetes Type II Musculoskeletal History: Osteoarthritis GI Medical History: No Pertinent History History: No Pertinent History Psycho-Social History: No Pertinent History Male Reproductive Disorders: No Pertinent History Other Medical History: foot ulver and cellulitis - Past Surgical History Past Surgical History: Yes (DECEMBER TRIPLE BYPASS) Neuro Surgical History: No Pertinent History Cardiac: CABG, Other Respiratory: No Pertinent History, Chest Surgery Gastrointestinal: No Pertinent History Genitourinary: No Pertinent History Musculoskeletal: No Pertinent History Male Surgical History: No Pertinent History Other Surgical History: umbilical, triple bypass - Social History Smoking Status: Current every day smoker How long have you smoked: 25 Exposure to second hand smoke: Yes Drug Use: none Patient Lives Alone: No - Nursing Vital Signs Nursing Vital Signs: Initial Vital Signs Temperature 98.6 F 05/29/20 17:30 Pulse Rate 98 H 05/29/20 17:30 Respiratory Rate 18 05/29/20 17:30 Blood Pressure 136/75 05/29/20 17:30 O2 Sat by Pulse Oximetry 94 L 05/29/20 17:30 Pain Scale Pain Intensity 6 - Daysi Coma Score Best Eye Response (Russell): (4) open spontaneously Best Verbal Response (Russell): (5) oriented Best Motor Response (Russell): (6) obeys commands Daysi Total: 15 - Physical Exam General Appearance: mild distress, alert, anxiety Head Injury: no evidence of injury Eye Exam: PERRL/EOMI, eyes nml inspection ENT Exam: airway nml, nml ext.inspection Neck Exam: supple, trachea midline, full range of motion, normal alignment, normal inspection Respiratory/Chest Exam: chest tenderness (Left lower ribs), normal breath sounds, rib tenderness (Left lower ribs I do think it was called for the), No respiratory distress, No ecchymosis, No crepitus Cardiovascular Exam: normal heart sounds, regular rate/rhythm Gastrointestinal Exam: soft, normal bowel sounds, tenderness (Mild left upper quadrant), guarding (Left upper quadrant), rebound Rectal Exam: not done Back Exam: normal inspection, normal range of motion, No CVA tenderness, No vertebral tenderness Extremity Exam: normal inspection, normal range of motion, pelvis stable Neurologic Exam: alert, oriented x 3, cooperative, gastroenterology teacher II-XII nml as tested, normal mood/affect, nml cerebellar function, nml station & gait, sensation nml Skin Exam: normal color, warm, dry SpO2 Interpretation: borderline oxygenation SpO2: 94 O2 Delivery: Room Air - Course Nursing assessment & vital signs reviewed: Yes EKG Interpreted by Me: RATE (90), Sinus Rhythm, NORMAL AXIS, NORMAL INTERVALS, NORMAL QRS, Left Bundle Branch Block, Other (Comparison EKG is July 17, 2019. There is resolution of the left anterior fascicular block. There is also resolution of the incomplete right bundle branch block. On today's EKG there is new incomplete left bundle branch block) Ordered Tests: Active Orders 24 hr Category Date Time Status ACCUCHECK [Accucheck] STAT Care 05/29/20 17:44 Active Custom Shop Worker STAT Care 05/29/20 17:44 Active EKG-ER Only STAT Care 05/29/20 17:44 Active IV Insertion STAT Care 05/29/20 17:44 Active Oxygen-ED Only Nasal Cannula 2 lpm Care 05/29/20 18:33 Active Wound Care STAT Care 05/29/20 18:35 Active ABDOMEN AND PELVIS W/0 CONTRAS [CT] Stat Exams 05/29/20 17:54 Taken CERVICAL SPINE WO CONTRAST [CT] Stat Exams 05/29/20 17:54 Taken CHEST WITHOUT CONTRAST [CT] Stat Exams 05/29/20 17:54 Taken HEAD WITHOUT CONTRAST [CT] Stat Exams 05/29/20 17:54 Taken Medication Summary Discontinued Medications Generic Name Dose Route Start Last Admin Trade Name Freq PRN Reason Stop Dose Admin Hydromorphone HCl 1 mg 05/29/20 18:30 05/29/20 18:34 Hydromorphone 1 Mg/Ml Ampule IV 05/29/20 18:31 1 mg STAT ONE Administration Hydromorphone HCl Confirm 05/29/20 18:34 Hydromorphone 1 Mg/Ml Ampule Administered 05/29/20 18:35 Dose 1 mg .ROUTE .STK-MED ONE - Progress Progress: improved, pain not gone completely, re-examined Progress Note: 05/29/20 19:25 CAT scan of the head reveals no acute intracranial abnormality CAT scan of the cervical spine reveals no evidence of acute fracture or subluxation. CAT scan of the chest without contrast reveals no evidence of any acute rib fractures or other intrathoracic abnormality. There is an old first rib fracture. CAT scan of the abdomen pelvis without contrast reveals no evidence of any acute intra-abdominal abnormality Counseled pt/family regarding: diagnosis, need for follow-up, rad results - Departure Departure Disposition: Home Clinical Impression: Fall with injury, Contusion, multiple sites Condition: Stable Critical Care Time: No Referrals: KEERTHI NGO [Primary Care Provider] - Additional Instructions: Take medication as prescribed. Follow-up with your primary care physician for further management and pain control. Prescriptions: Oxycodone HCl/Acetaminophen [Percocet 5-325 mg Tablet] 1 each PO Q8H PRN PRN #12 tablet MDD 3 PRN Reason: Pain Carisoprodol 350 mg [Soma 350 mg] 350 mg PO Q12H PRN PRN #10 tablet MDD 2 PRN Reason: Muscle Spasms
[2020-05-29] MEDS ORDERED: Hydromorphone 1 mg/ml Ampule IV ONE (18:30)
[2020-05-29] MEDS ORDERED: Hydromorphone 1 mg/ml Ampule ONE (18:34)
[2020-05-29] MEDS ORDERED: Ativan 2 MG/1 ML VIAL IV ONE (19:29)
[2020-05-29] MEDS ORDERED: PERCOCET TABLET 5/325MG PO STA (19:30)
[2020-05-29] MEDS ORDERED: PERCOCET TABLET 5/325MG ONE (20:40)
[2020-05-29] MEDS ORDERED: Ativan 2 MG/1 ML VIAL ONE (20:41)
[2020-05-29 21:15] VITALS: BP 136/79; PULSE 85; O2SAT 99
--- NOTE | 2020-05-30 08:34 | XRAY ---
Indication: Left head pain following fall. Multiple contiguous axial images obtained through the head without contrast. Comparison: August 28, 2019. Stable age-appropriate global atrophy and minimal periventricular degenerative micro-ischemia bilaterally. Again no acute intracranial hemorrhage, abnormal extra-axial fluid collection, or mass effect. Fourth ventricle is midline without hydrocephalus. Bony calvarium intact. Visualized paranasal sinuses and mastoid air cells remain clear. Impression: Stable nonacute senile brain.
--- NOTE | 2020-05-30 08:36 | XRAY ---
Indication: Left neck pain following fall. Multiple contiguous axial images obtained through the cervical spine. Sagittal and coronal reformatted images obtained. Comparison: August 28, 2019. Axial images remain negative for acute fracture, suspicious bony lesions, or spinal canal stenosis. Stable mild C4-C7 degenerative endplate spurring, mild multilevel bilateral degenerative facet hypertrophy, and atlantoaxial degenerative changes. Sagittal and coronal reformatted images now demonstrates lordotic straightening, positional versus paraspinal spasm. Stable C5-C7 disc space narrowing. Again no acute compression fracture, subluxation, or jumped facet. Normal appearing craniocervical junction. Visualized noncontrasted soft tissues again demonstrates mild bilateral carotid calcifications. Lung apices unremarkable. Impression: 1. New cervical lordotic straightening, positional versus paraspinal spasm. 2. Continued negative for acute fracture/subluxation. 3. Stable multilevel degenerative changes.
--- NOTE | 2020-05-30 08:40 | XRAY ---
Indication: Pain following fall. Multiple contiguous axial images obtained through the chest without contrast as ordered. Comparison: August 28, 2019. Lungs inflated again with mild bilateral dependent atelectasis, bibasilar fibrosis/scarring, and right lower lobe calcified granulomas. No suspicious pulmonary mass, infiltrate, consolidation, or effusion. Heart remains borderline enlarged again with CABG surgery. Aorta remains mildly arteriosclerotic without aneurysm. Stable small subcarinal and right infrahilar calcified nodes. No pathologic mediastinal lymphadenopathy. Bony thorax remains intact again with mild degenerative changes throughout the spine, old left 1 rib fracture and sternotomy wires. CT abdomen reported separately. Impression: 1. Borderline cardiomegaly, chronic bony findings, and old granulomatous disease. 2. Remaining CT chest without contrast exam is again negative.
--- NOTE | 2020-05-30 09:03 | XRAY ---
Indication: Pain following fall. Multiple contiguous axial images obtained through the abdomen and pelvis without contrast as ordered. Comparison: August 28, 2019. CT chest reported separately. Noncontrasted stomach and bowel loops remain nonobstructed. Normal appendix. Again mild diffuse scattered colonic fecal debris throughout and mild sigmoid diverticulosis. No free fluid/air. New tiny gallstones/gravel in the dependent portion. Stable mild fatty liver and 14.5 cm splenomegaly. Remaining liver, gallbladder, pancreas, spleen, adrenal glands, kidneys, ureters, and bladder appear unremarkable for noncontrast exam. Stable mild aortoiliac calcifications without AAA. Osseous structures intact again with mild/moderate degenerative changes throughout the thoracolumbar spine. Stable small bilateral fatty inguinal hernias. Impression: 1. New tiny gallstones/gravel. Gallbladder sonogram may yield further information 2. Again diffuse fecal stasis, sigmoid diverticulosis, splenomegaly, fatty liver, small bilateral fatty inguinal hernias, and chronic bony findings. 3. Remaining CT abdomen/pelvis without contrast exam is negative.
== END 2020-05-29 21:33 | disposition home or self-care (01) ==
LOC: ED 17:26
DX: S00.93XA Contusion of unspecified part of head, initial encounter (principal); R42 Dizziness and giddiness; W01.10XA Fall on same level from slipping, tripping and stumbling with subsequent striking against unspecified object, initial encounter; S30.1XXA Contusion of abdominal wall, initial encounter; Y92.9 Unspecified place or not applicable; Z79.899 Other long term (current) drug therapy
CPT/HCPCS: 36000; 70450; 71250; 72125; 74176; 82962; 93005; 93041; 96374; 96375; 99284; J1170; J2060; A9270-GY

== ENCOUNTER 2021-06-13 05:41 | Day surgery (SDC) | payer MEDICARE, OTHER ==
[2021-06-13] MEDS ORDERED: Lactated Ringers 1,000 ML IV SCH (07:00)
[2021-06-13] MEDS ORDERED: CEFAZOLIN 2 GM-D5W BAG** 2 GM/50 ML ML IV SCH (07:00)
[2021-06-13 07:20] LABS: Hematocrit 35.7 % (42-50); Mean Cell Volume 94.9 fl (78-100); Mean Corpuscular Hemoglobin 29.3 pg (26-32); Mean Corpuscular Hgb Concent. 30.8 g/dl (32-36); Mean Platelet Volume 11.4 fl (7.5-11.0); Platelet Count 158 K/mm3 (150-450); Red Blood Count 3.76 M/mm3 (4.1-5.6); Red Cell Distribution Width 14.9 % (11.5-14.0); White Blood Count 6.6 K/mm3 (4.0-10.5)
[2021-06-13] MEDS ORDERED: XYLOCAINE 1% HCL 20 ML MDV ONE (07:20)
[2021-06-13] MEDS ORDERED: BUPIVACAINE 0.5% VIAL IJ ONE (07:20)
[2021-06-13 07:31] LABS: ANION GAP 13.7 MEQ/L (5-15); BILIRUBIN,TOTAL 0.4 mg/dL (0.2-1.3); Calcium 9.4 mg/dL (8.4-10.2); Creatinine 1 1.62 mg/dL (0.66-1.25); EST GLOMERULAR FILTRATION RATE 45.7 ML/MIN; Total Protein 6.7 g/dL (6.3-8.2)
[2021-06-13] MEDS ORDERED: Versed 2 MG/2 ML Injection ONE (08:51)
[2021-06-13] MEDS ORDERED: SUBLIMAZE 100 MCG/2 ML ONE (08:52)
[2021-06-13] MEDS ORDERED: KEFZOL 1 GM ONE (08:57)
[2021-06-13] MEDS ORDERED: Ephedrine Sulfate 50 MG/ML ONE (09:04)
[2021-06-13] MEDS ORDERED: DIPRIVAN 200 MG/20 ML IV ONE ×2 (09:16)
--- NOTE | 2021-06-13 10:02 | XRAY ---
Indication: Right fourth metatarsal osteotomy. Intraoperative fluoroscopy provided for 18 seconds. 6 digital spot images right foot submitted for interpretation demonstrates osteotomy distal 4th metatarsal. Correlate with intraoperative findings/report.
[2021-06-13 10:48] VITALS: BP 153/79; PULSE 77; O2SAT 94
--- NOTE | 2021-06-13 13:15 | XRAY ---
18 seconds fluoroscopy time in surgery for 4th metatarsal osteotomy right foot.
--- NOTE | 2021-06-13 13:57 | OP ---
SURGERY DATE/TIME: 06/13/2021 0846 PREOPERATIVE DIAGNOSES: 1) Chronic diabetic foot ulcer. 2) Nonhealing foot wound right foot. 3) Pressure ulceration stage II. POSTOPERATIVE DIAGNOSES: 1) Chronic diabetic foot ulcer. 2) Nonhealing foot wound right foot. 3) Pressure ulceration stage II. PROCEDURE: Floating metatarsal osteotomy of the fourth metatarsal right foot. SURGEON: Alireza Arnold DPM. SENIOR CATERING SALES MANAGER: None. ANESTHESIA: MAC plus local. HEMOSTASIS: Pressure dressing. ESTIMATED BLOOD LOSS: Less than 5 cc. MATERIALS: 3-0 Nylon. INJECTABLES: 13.5 cc of a 1:1 mixture of 0.5% Marcaine plain and 1% lidocaine plain injected in a Daniele block type fashion to the fourth metatarsal of the right foot. INDICATION FOR SURGERY: Simeon is a very pleasant 66 year-old male who presented today after many months of conservative management of diabetic foot ulcer that had been seen by multiple providers. He had made significant improvement however we have stagnated over the course of the last two months and we have noticed that there is recalcitrance to wound healing at this time. At this time the patient wishes to proceed with more aggressive measures of management. The patient does have fat pad atrophy to the area of the ulcer which has resulted in overload of the forefoot. Options were discussed with the patient in regards to surgical intervention. The patient was not amenable to procedures that would keep him off of his foot for six weeks at a time. However, there are options that will selectively offload the fourth metatarsal head and thus help to heal the ulceration. Literature was provided to the patient demonstrating an 85% heal rate in a clinical trial demonstrating a good potential for wound healing. He understands all risks, benefits and indications for the procedure including but not limited to nonwound healing, delayed wound healing, possibility of a continued fracture metatarsal of the fourth metatarsal head, postoperative pain, recurrent infection and the possibility of osteomyelitis. The patient indicates that he would like something done at this time that is more aggressive and wishes to proceed despite the possible complications. It is with that we have decided to proceed with surgical intervention today. DESCRIPTION OF PROCEDURE AND FINDINGS: The patient was brought into the OR, placed on the OR table in supine position. Adequate monitored anesthesia care was provided to the patient until he was sedated. In a Daniele block type fashion digital metatarsal block was performed in order to anesthetize the area locally. At this time the right lower extremity was prepped and draped in the typical sterile fashion and the right lower extremity was lowered onto the surgical field. At this time attention was directed to the lateral aspect of the fourth metatarsal dorsally where fluoroscopy was utilized to demonstrate the head of the metatarsal. At this time a 15 blade was utilized to make a stab incision through the skin just large enough for the blade to fit. Under fluoroscopy the fourth metatarsal neck was identified and the sagittal saw was utilized to make a cut transverse in nature in order to prevent any lengthening or shortening. At this time the fourth metatarsal head was displaced dorsally in order to alleviate pressure. At this time copious amounts of sterile saline were utilized to flush the surgical site. Two simple interrupted stitches were utilized to coapt the skin edge. At this time a dressing consisting of betadine, Adaptic, 4x4 and Jayda were applied to the right lower extremity and then secured with a Unna boot to the right lower extremity in order to prevent any postoperative swelling. The patient was reversed from anesthesia and brought to the postoperative anesthesia care unit with vital signs stable and vascular status intact. The patient handled the procedure and anesthesia without complication. Postoperative orders as indicated in the patient's chart.
== END 2021-06-13 10:30 | disposition home or self-care (01) ==
LOC: SDC 05:41
PROVIDERS: ATTEND Podiatrist Foot & Ankle Surgery
DX: E11.621 Type 2 diabetes mellitus with foot ulcer (principal); L97.516 Non-pressure chronic ulcer of other part of right foot with bone involvement without evidence of necrosis; I10 Essential (primary) hypertension; Z86.79 Personal history of other diseases of the circulatory system; Z79.899 Other long term (current) drug therapy
CPT/HCPCS: 36415; 73620; 76000; 80053; 85027; J0690; J2250; J2704; J3010

== ENCOUNTER 2021-12-21 07:56 | Emergency (ER) | payer MEDICARE, OTHER ==
--- NOTE | 2021-12-21 08:23 | ERPHSYRPT ---
- History of Present Illness Time Seen by Provider: 12/21/21 08:12 Source: patient Exam Limitations: no limitations Physician History: The patient is a 66-year-old male with a past medical significant for diabetes mellitus, hypertension, cigarette smoking who presents with a chief complaint of a cough and myalgias. He reportedly started to experience a sore throat this past Wednesday, December 19, 2021. His symptoms progressed to a cough and generalized body aches. He states that he felt worse last night into this morning prompted him to seek treatment in the emergency department. He endorsed having some right upper back pain associated with cough in addition to some nausea and vomiting. He is not anything for pain and was agreeable to taken Tylenol after our intervi ew. He has been vaccinated for flu but has not been vaccinated for Covid. He denies fever, chills, diarrhea, chest pain or abdominal pain. His primary care provider is Dr. Byrd. Associated Symptoms: nausea, vomiting, cough, malaise, other (Myagias), No abdominal pain, No shortness of breath, No chest pain, No headaches Allergies/Adverse Reactions: gabapentin Adverse Reaction (Verified 12/21/21 08:02) "got kind of loopy" Home Medications: Metformin HCl [Glucophage] 1,000 mg PO BID 01/22/17 [History] Glipizide [Glipizide ER] 10 mg PO DAILY 10/06/18 [History] Atorvastatin Calcium [Lipitor] 40 mg PO DAILY 05/26/19 [History] Losartan Potassium 50 mg [Cozaar 50 MG] 50 mg PO DAILY 05/26/19 [History] Furosemide 40 mg [Lasix 40 MG] 1 tab PO BID 07/18/19 [History] Ezetimibe 10 mg PO DAILY 04/26/20 [History] Clopidogrel Bisulfate 75 mg [PLAVIX 75 MG Tablet] 75 mg PO DAILY 02/10/21 [History] Hydrochlorothiazide 25 mg [hydroDIURIL 25 MG] 25 mg PO DAILY 02/10/21 [History] Insulin Glargine [Lantus Insulin] 20 unit SQ HS 02/10/21 [History] Meloxicam [Mobic] 15 mg PO DAILY 02/10/21 [History] carvediloL [Carvedilol] 25 mg PO BID 02/10/21 [History] Acetaminophen 500 mg [Tylenol Extra Strength 500 mg] 1,000 mg PO TIDPRN 06/06/21 [History] Allopurinol 100 mg [Zyloprim 100 mg] 100 mg PO DAILY 06/06/21 [History] Duloxetine HCl [Cymbalta] 60 mg PO DAILY 06/06/21 [History] Ferrous Sulfate 325 mg [Feosol 325 mg] 325 mg PO BID 06/06/21 [History] Honey [Medihoney] 44 ml TP DAILY 06/06/21 [History] Hx Tetanus, Diphtheria Vaccination/Date Given: No Hx Influenza Vaccination/Date Given: Yes Hx Pneumococcal Vaccination/Date Given: No - Review of Systems Constitutional: Fatigue, Malaise, No Fever, No Chills Eyes: No Symptoms Ears, Nose, & Throat: Throat Pain, No Nose Pain, No Nose Congestion, No Hoarse, No Painful Swallowing Respiratory: Cough, No Dyspnea Cardiac: No Symptoms Abdominal/Gastrointestinal: Nausea, Vomiting, No Abdominal Pain, No Diarrhea Genitourinary Symptoms: No Symptoms Musculoskeletal: Back Pain (Upper back pain, right side) Skin: No Symptoms Neurological: No Symptoms Psychological: No Symptoms Endocrine: No Symptoms Hematologic/Lymphatic: No Symptoms Immunological/Allergic: No Symptoms All Other Systems: Reviewed and Negative - Past Medical History Pertinent Past Medical History: Yes Neurological History: No Pertinent History ENT History: No Pertinent History Cardiac History: Angina, Coronary Artery Disease, Myocardial Infarction (IA) Respiratory History: COPD Endocrine Medical History: Diabetes Type II Musculoskeletal History: Osteoarthritis GI Medical History: No Pertinent History History: No Pertinent History Psycho-Social History: No Pertinent History Male Reproductive Disorders: No Pertinent History Other Medical History: fractured ribs - Past Surgical History Past Surgical History: Yes (DECEMBER TRIPLE BYPASS) Neuro Surgical History: No Pertinent History Cardiac: CABG, Other Respiratory: Chest Surgery Gastrointestinal: No Pertinent History Genitourinary: No Pertinent History Musculoskeletal: Orthopedic Surgery Male Surgical History: No Pertinent History Other Surgical History: umbilical, triple bypass, L shoulder - Social History Smoking Status: Current every day smoker How long have you smoked: 25 Exposure to second hand smoke: Yes Drug Use: none Patient Lives Alone: No - Nursing Vital Signs Nursing Vital Signs: Initial Vital Signs Temperature 98.0 F 12/21/21 08:03 Pulse Rate 77 12/21/21 08:03 Respiratory Rate 20 12/21/21 08:03 Blood Pressure 116/63 12/21/21 08:03 O2 Sat by Pulse Oximetry 93 L 12/21/21 08:03 Pain Scale Pain Intensity 0 - Physical Exam General Appearance: no apparent distress, alert Eye Exam: PERRL/EOMI Ears, Nose, Throat Exam: pharynx normal, moist mucous membranes, No pharyngeal erythema, No tonsillar exudate Neck Exam: normal inspection, non-tender, No JVD Respiratory Exam: crackles/rales Cardiovascular Exam: regular rate/rhythm, normal heart sounds, other (Trace bilateral lower extremity edema), No murmur, No friction rub, No gallop, No capillary refill <2 sec Gastrointestinal/Abdomen Exam: soft, No tenderness, No distention, No mass, No guarding Rectal Exam: deferred Back Exam: normal inspection Extremity Exam: other (The patient had evidence of stasis dermatitis in both lower extremities) Neurologic Exam: alert, oriented x 3, cooperative Skin Exam: warm, dry, pale, other (Stasis dermatitis noted to both lower extremities, 1 cm what appears to be venous stasis ulcer noted to the anterior aspect of the right christensen. There are no open wounds noted to the soles of the feet. No evidence of cellulitis) SpO2 Interpretation: normal O2 Delivery: Room Air - Course Nursing assessment & vital signs reviewed: Yes EKG Interpreted by Me: RATE, Sinus Rhythm, Left Langley Deviation, Other (Borderline LBBB, sinus rhythm, possible Q-waves in anterior leads suggestive of old infarct. Negative or STEMI) - Radiology Exams Chest X-ray Interpretation: Interpreted by me, Reviewed by me, Negative (No acute cardiopulmonary process compared to chest x-ray dated 2017. Currently waiting formal radiology review.) Ordered Tests: Active Orders 24 hr Category Date Time Status EKG-ER Only STAT Care 12/21/21 08:23 Active IV Insertion STAT Care 12/21/21 08:23 Active Pulse Oximetry (ED) STAT Care 12/21/21 08:23 Active CHEST 2 VIEWS (PA AND LAT) Stat Exams 12/21/21 08:24 Taken BMP Stat Lab 12/21/21 08:45 Completed CBC W DIFF Stat Lab 12/21/21 08:45 Completed COVID AG-BINAX NOW RAPID TEST Stat Lab 12/21/21 08:45 Completed INFLUENZA A+B SAMRA Stat Lab 12/21/21 08:45 Completed TROPONIN Stat Lab 12/21/21 08:45 Completed Medication Summary Discontinued Medications Generic Name Dose Route Start Last Admin Trade Name Esther PRN Reason Stop Dose Admin Acetaminophen 975 mg 12/21/21 08:25 12/21/21 08:30 Acetaminophen 325 Mg Tablet PO 12/21/21 08:26 975 mg STAT ONE Administration Acetaminophen Confirm 12/21/21 08:29 Acetaminophen 325 Mg Tablet Administered 12/21/21 08:30 Dose 975 mg .ROUTE .STFreeATM-MED ONE Lab/Rad Data: Laboratory Result Diagrams 12/21/21 08:45 12/21/21 08:45 Laboratory Results 12/21/21 12/21/21 12/21/21 Range/Units 08:45 08:45 08:45 WBC (4.0-10.5) K/mm3 RBC (4.1-5.6) M/mm3 Hgb (12.5-18.0) gm/dl Hct (42-50) % MCV (78-100) fl MCH (26-32) pg MCHC (32-36) g/dl RDW (11.5-14.0) % Plt Count (150-450) K/mm3 MPV (7.5-11.0) fl Gran % (36.0-66.0) % Eos # (Auto) (0-0.5) Absolute Lymphs (auto) (1.0-4.6) Absolute Monos (auto) (0.0-1.3) Lymphocytes % (24.0-44.0) % Monocytes % (0.0-12.0) % Eosinophils % (0.00-5.0) % Basophils % (0.0-0.4) % Absolute Granulocytes (1.4-6.9) Basophils # (0-0.4) Sodium 141 (137-145) mmol/L Potassium 4.3 (3.5-5.1) mmol/L Chloride 102 (98-107) mmol/L Carbon Dioxide 33 H (22-30) mmol/L Anion Gap 11.0 (5-15) MEQ/L BUN 58 H (9-20) mg/dL Creatinine 1.64 H (0.66-1.25) mg/dL Estimated GFR 45.0 ML/MIN Glucose 126 H (74-106) mg/dL Calcium 8.9 (8.4-10.2) mg/dL Troponin I < 0.012 (0.000-0.034) ng/mL Influenza Type A Ag NEGATIVE (NEGATIVE) Influenza Type B Ag NEGATIVE (NEGATIVE) SARS-CoV-2 Ag (Rapid) NEGATIVE (NEGATIVE) 12/21/21 Range/Units 08:45 WBC 8.2 (4.0-10.5) K/mm3 RBC 3.68 L (4.1-5.6) M/mm3 Hgb 10.7 L (12.5-18.0) gm/dl Hct 34.8 L (42-50) % MCV 94.6 (78-100) fl MCH 29.1 (26-32) pg MCHC 30.7 L (32-36) g/dl RDW 15.1 H (11.5-14.0) % Plt Count 223 (150-450) K/mm3 MPV 11.0 (7.5-11.0) fl Gran % 78.3 H (36.0-66.0) % Eos # (Auto) 0.10 (0-0.5) Absolute Lymphs (auto) 1.13 (1.0-4.6) Absolute Monos (auto) 0.54 (0.0-1.3) Lymphocytes % 13.8 L (24.0-44.0) % Monocytes % 6.6 (0.0-12.0) % Eosinophils % 1.2 (0.00-5.0) % Basophils % 0.1 (0.0-0.4) % Absolute Granulocytes 6.41 (1.4-6.9) Basophils # 0.01 (0-0.4) Sodium (137-145) mmol/L Potassium (3.5-5.1) mmol/L Chloride (98-107) mmol/L Carbon Dioxide (22-30) mmol/L Anion Gap (5-15) MEQ/L BUN (9-20) mg/dL Creatinine (0.66-1.25) mg/dL Estimated GFR ML/MIN Glucose (74-106) mg/dL Calcium (8.4-10.2) mg/dL Troponin I (0.000-0.034) ng/mL Influenza Type A Ag (NEGATIVE) Influenza Type B Ag (NEGATIVE) SARS-CoV-2 Ag (Rapid) (NEGATIVE) - Progress Progress Note: 12/21/21 08:37 Nontoxic in appearance. The patient presents with a flulike illness to include sore throat, myalgias, cough in addition to some nausea vomiting. Differential includes COVID-19 infection/pneumonia, community-acquired pneumonia, influenza infection, or other viral URI from an unknown etiology. Obtain labs to include CBC, BMP, flu test in addition to Covid test. EKG will be obtained in addition to a troponin. Chest x-ray will be ordered to eval for evidence of pneumonia or pleural effusion. The patient seems to be breathing well and is not hypoxic at this time and I have a low suspicion for a PE or ACS equivalent at this point. 12/21/21 08:41 I reviewed the patient's EMR and his EKG today appears similar compared to EKG noted in 05/2021. 12/21/21 09:06 I reviewed the patient's EMR and it appears he tested positive for Covid in September 2020. It also appears he has a baseline anemia that is a normocytic anemia and likely reflective of anemia of chronic disease. It also appears the patient's hemoglobin A1c was 8.41 back in April 2021 reflecting uncontrolled diabetes. 12/21/21 09:06 Chest x-ray reviewed by me and showed no evidence of acute cardiopulmonary process. Currently awaiting formal radiology review. 12/21/21 10:08 The patient had no hypoxia while awake and talking. He did have some hypoxia while sleeping and he probably has undiagnosed sleep apnea. He was in no obvious respiratory distress. I informed her that the radiologist has to formally read his x-ray however I did not see any evidence of obvious pneumonia but given his history of smoking and history of diabetes is certainly possible he may have this given the sensitivity of the x-ray being about 60 may be 70% at best. His troponin was within normal limits and his EKG showed no evidence of acute myocardial ischemia or injury pattern and appeared unchanged from an EKG dated May 2021. This lowers my suspicion for an ACS equivalent. Also have a low suspicion for PE at this time given his symptomatology. His complaint does not seem consistent with a CHF exacerbation. I will prescribe doxycycline for him to take in addition to an albuterol inhaler and Zofran for his complaint of nausea and vomiting which she had no complaint of while in the emergency department. I cautioned him to avoid NSAIDs and instructed to take Tylenol only for any fevers aches or pain. I also encouraged him to follow-up with his PCP the reevaluated idea this coming week and instructed him to come back to the emergency department if he felt any worse, specifically with increased shortness of breath. We discussed smoking cessation in addition to the importance of being vaccinated for COVID-19. Overall, I suspect the patient may be suffering from a viral syndrome hopefully he should do well with supportive care. Discussed with Dr.: Misti Counseled pt/family regarding: lab results, diagnosis, need for follow-up, rad results, smoking cessation - Departure Departure Disposition: Extended Care Facility Clinical Impression: Viral URI with cough, Tobacco abuse, Nausea and vomiting, Type 2 diabetes mellitus with circulatory disorder, COPD (chronic obstructive pulmonary disease) with emphysema, Normocytic anemia Condition: Good Critical Care Time: No Referrals: NICCI BYRD MD [Primary Care Provider] - Follow up/PCP as directed Instructions: Chronic Obstructive Pulmonary Disease, Viral Upper Respiratory Infection, Adult (DC) Additional Instructions: Please take Tylenol as needed for any ongoing fevers aches or pain. You can purchase this medication [id number]. Please take this medication as instructed on the medication bottle. Please avoid medications such as ibuprofen, naproxen, Motrin, Aleve or Advil or anything any NSAID class given your history of kidney disease. Prescriptions: RX: Ondansetron ODT 4 MG [Zofran Odt 4 mg] 4 mg PO Q6H PRN PRN #20 PRN Reason: Nausea RX: Albuterol 8 gm Mdi Hfa [Ventolin Hfa MDI] 90 mcg IH Q4H PRN #1 PRN Reason: Shortness Of Breath RX: Doxycycline Hyclate 100 mg [Vibramycin 100 MG] 100 mg PO BID 7 Days #14 tab
[2021-12-21] MEDS ORDERED: TYLENOL 325 MG PO ONE (08:25)
[2021-12-21] MEDS ORDERED: TYLENOL 325 MG ONE (08:29)
[2021-12-21 08:51] LABS: Absolute Neutrophil Ct (ANC) 6.41 (1.4-6.9); Basophil (Absolute #) 0.01 (0-0.4); Eosinophil % 1.2 % (0.00-5.0); Hematocrit 34.8 % (42-50); Hemoglobin 10.7 gm/dl (12.5-18.0); Lymphocyte (Absolute #) 1.13 (1.0-4.6); Lymphocytes % 13.8 % (24.0-44.0); Mean Cell Volume 94.6 fl (78-100); Mean Corpuscular Hemoglobin 29.1 pg (26-32); Mean Corpuscular Hgb Concent. 30.7 g/dl (32-36); Monocyte (Absolute #) 0.54 (0.0-1.3); Monocytes % 6.6 % (0.0-12.0); Neutrophil % 78.3 % (36.0-66.0); Platelet Count 223 K/mm3 (150-450); Red Blood Count 3.68 M/mm3 (4.1-5.6); Red Cell Distribution Width 15.1 % (11.5-14.0); White Blood Count 8.2 K/mm3 (4.0-10.5)
[2021-12-21 09:15] LABS: BLOOD UREA NITROGEN 58 mg/dL (9-20); CHLORIDE 102 mmol/L (98-107); Calcium 8.9 mg/dL (8.4-10.2); Carbon Dioxide 33 mmol/L (22-30); Creatinine 1 1.64 mg/dL (0.66-1.25); Glucose 126 mg/dL (74-106); Potassium 4.3 mmol/L (3.5-5.1); SODIUM 141 mmol/L (137-145); TROPONIN < 0.012 ng/mL (0.000-0.034)
[2021-12-21 09:16] LABS: COVID AG -BINAX NOW RAPID TEST NEGATIVE (NEGATIVE); INFLUENZA A NEGATIVE (NEGATIVE); INFLUENZA B NEGATIVE (NEGATIVE)
[2021-12-21 10:04] VITALS: BP 110/60; PULSE 68
[2021-12-21 10:05] VITALS: O2SAT 96
--- NOTE | 2021-12-21 19:32 | XRAY ---
Indication: Cough and congestion. Bodyaches. Comparison: October 08, 2018. PA/lateral chest again hyperinflated with right base calcified granuloma and left mid to lower lung fibrosis/scarring. No focal infiltrate, consolidation, or large effusion. Heart not enlarged with interval CABG surgery. Bony thorax intact again with mild osteopenia, degenerative changes, and tiny right axilla foreign body. Impression: Nonacute hyperinflated chest with chronic features.
== END 2021-12-21 10:15 | disposition home or self-care (01) ==
LOC: ED 07:56
DX: J06.9 Acute upper respiratory infection, unspecified (principal); R05.1 Acute cough; Z72.0 Tobacco use; R11.2 Nausea with vomiting, unspecified; E11.59 Type 2 diabetes mellitus with other circulatory complications; Z79.4 Long term (current) use of insulin; J43.9 Emphysema, unspecified; D64.9 Anemia, unspecified; M79.10 Myalgia, unspecified site; J02.9 Acute pharyngitis, unspecified; I10 Essential (primary) hypertension; Z79.01 Long term (current) use of anticoagulants; Z79.899 Other long term (current) drug therapy; Z86.16 Personal history of COVID-19
CPT/HCPCS: 36000; 36415; 71046; 80048; 84484; 85025; 87400; 93005; 94760; 99000; 99284; A9270-GY

== ENCOUNTER 2021-12-29 10:03 | Emergency (ER) | payer MEDICARE, OTHER ==
[2021-12-29] MEDS ORDERED: solu-MEDROL 125 MG, Sterile H2O 10 ml 2 ML IV ONE ×2 (10:13)
[2021-12-29] MEDS ORDERED: Sodium Chloride 0.9% 500 ML 500 ML IV ONE ×2 (10:13→10:54)
[2021-12-29 10:34] LABS: Absolute Neutrophil Ct (ANC) 6.82 (1.4-6.9); Basophil (Absolute #) 0.01 (0-0.4); Eosinophil % 0.6 % (0.00-5.0); Eosinophil (Absolute #) 0.05 (0-0.5); Hematocrit 32.4 % (42-50); Lymphocyte (Absolute #) 1.01 (1.0-4.6); Lymphocytes % 12.1 % (24.0-44.0); Mean Cell Volume 93.4 fl (78-100); Mean Corpuscular Hemoglobin 28.8 pg (26-32); Mean Corpuscular Hgb Concent. 30.9 g/dl (32-36); Mean Platelet Volume 11.2 fl (7.5-11.0); Monocyte (Absolute #) 0.47 (0.0-1.3); Monocytes % 5.6 % (0.0-12.0); Neutrophil % 81.6 % (36.0-66.0); Platelet Count 209 K/mm3 (150-450); Red Blood Count 3.47 M/mm3 (4.1-5.6); Red Cell Distribution Width 15.2 % (11.5-14.0); White Blood Count 8.4 K/mm3 (4.0-10.5)
--- NOTE | 2021-12-29 10:49 | XRAY ---
Indication: Pain. No known injury. Comparison: None 3 view left hand demonstrates mild osteopenia and moderate/advanced degenerative changes 1st metacarpal multangular scaphoid articulation. No other bony, articular, or soft tissue abnormalities.
--- NOTE | 2021-12-29 10:49 | XRAY ---
Indication: Pain. No known injury. Comparison: None 3 view left wrist demonstrates mild osteopenia, moderate/advanced degenerative changes 1st metacarpal multangular scaphoid articulation, and mild scattered vascular calcifications. No other bony, articular, or soft tissue abnormalities.
--- NOTE | 2021-12-29 10:49 | ERPHSYRPT ---
- History of Present Illness Time Seen by Provider: 12/29/21 10:10 Source: patient Exam Limitations: no limitations Patient Subjective Stated Complaint: Hand/wrist pain Triage Nursing Assessment: Patient ambulated back to ED and transferred self to bed. Patient A+O X3. Patient's skin pink, warm and dry. Patient states he woke up yesterday with left wrist/hand pain. Patient's left wrist noted to be swollen and tender. Patient denies recent injury or trauma. Patient complains of constant aching pain / to left wrist/hand. Physician History: Patient is a 66-year-old male who presents with a complaint of left wrist and hand pain. He awoke with it this morning he has had no known injury. It actually had been somewhat painful for a couple days but was much worse this morning. He has been told that he has had gout in the past but then says that was proven not to be gout. He has noted swelling and pain over the dorsum of the wrist and hand. Occurred: this morning Method of Injury: unknown Quality: aching, throbbing Severity of Pain-Max: severe Severity of Pain-Current: severe Extremities Pain Location: wrist: left, hand: left Modifying Factors: Improves With: movement Associated Symptoms: none Allergies/Adverse Reactions: gabapentin Adverse Reaction (Verified 12/29/21 10:06) "got kind of loopy" Home Medications: Metformin HCl [Glucophage] 1,000 mg PO BID 01/22/17 [History] Glipizide [Glipizide ER] 10 mg PO DAILY 10/06/18 [History] Atorvastatin Calcium [Lipitor] 40 mg PO DAILY 05/26/19 [History] Losartan Potassium 50 mg [Cozaar 50 MG] 50 mg PO DAILY 05/26/19 [History] Furosemide 40 mg [Lasix 40 MG] 1 tab PO BID 07/18/19 [History] Ezetimibe 10 mg PO DAILY 04/26/20 [History] Clopidogrel Bisulfate 75 mg [PLAVIX 75 MG Tablet] 75 mg PO DAILY 02/10/21 [History] Hydrochlorothiazide 25 mg [hydroDIURIL 25 MG] 25 mg PO DAILY 02/10/21 [History] Insulin Glargine [Lantus Insulin] 20 unit SQ HS 02/10/21 [History] Meloxicam [Mobic] 15 mg PO DAILY 02/10/21 [History] carvediloL [Carvedilol] 25 mg PO BID 02/10/21 [History] Acetaminophen 500 mg [Tylenol Extra Strength 500 mg] 1,000 mg PO TIDPRN 06/06/21 [History] Allopurinol 100 mg [Zyloprim 100 mg] 100 mg PO DAILY 06/06/21 [History] Duloxetine HCl [Cymbalta] 60 mg PO DAILY 06/06/21 [History] Ferrous Sulfate 325 mg [Feosol 325 mg] 325 mg PO BID 06/06/21 [History] Honey [Medihoney] 44 ml TP DAILY 06/06/21 [History] Hx Tetanus, Diphtheria Vaccination/Date Given: No Hx Influenza Vaccination/Date Given: No Hx Pneumococcal Vaccination/Date Given: No Immunizations Up to Date: Yes Travel Risk - International Travel Have you traveled outside of the country in past 3 weeks: No - Coronavirus Screening Are you exhibiting any of the following symptoms?: No - Vaccine Status Have you recieved a Covid-19 vaccination: No - Review of Systems Constitutional: No Fever, No Chills Eyes: No Symptoms Ears, Nose, & Throat: No Symptoms Respiratory: No Cough, No Dyspnea Cardiac: No Chest Pain, No Edema, No Syncope Abdominal/Gastrointestinal: No Abdominal Pain, No Nausea, No Vomiting, No Diarrhea Genitourinary Symptoms: No Dysuria Musculoskeletal: Joint Pain, Joint Swelling (There is joint pain and swelling and a some heat over the dorsum of the left wrist and hand.), No Back Pain, No Neck Pain Skin: No Rash Neurological: No Dizziness, No Focal Weakness, No Sensory Changes Psychological: No Symptoms Endocrine: No Symptoms All Other Systems: Reviewed and Negative - Past Medical History Pertinent Past Medical History: Yes Neurological History: No Pertinent History ENT History: No Pertinent History Cardiac History: Angina, Coronary Artery Disease, Myocardial Infarction ([place]) Respiratory History: COPD Endocrine Medical History: Diabetes Type II Musculoskeletal History: Osteoarthritis GI Medical History: No Pertinent History History: No Pertinent History Psycho-Social History: No Pertinent History Male Reproductive Disorders: No Pertinent History Other Medical History: fractured ribs - Past Surgical History Past Surgical History: Yes (DECEMBER TRIPLE BYPASS) Neuro Surgical History: No Pertinent History Cardiac: CABG, Other Respiratory: Chest Surgery Gastrointestinal: No Pertinent History Genitourinary: No Pertinent History Musculoskeletal: Orthopedic Surgery Male Surgical History: No Pertinent History Other Surgical History: umbilical, triple bypass, L shoulder - Social History Smoking Status: Current every day smoker How long have you smoked: 25 Exposure to second hand smoke: Yes Drug Use: none Patient Lives Alone: No - Nursing Vital Signs Nursing Vital Signs: Initial Vital Signs Temperature 97.4 F 12/29/21 10:07 Pulse Rate 77 12/29/21 10:07 Respiratory Rate 18 12/29/21 10:07 Blood Pressure 153/83 12/29/21 10:07 O2 Sat by Pulse Oximetry 92 L 12/29/21 10:07 Pain Scale Pain Intensity 8 - Physical Exam General Appearance: mild distress, alert Eyes, Ears, Nose, Throat Exam: moist mucous membranes Neck Exam: non-tender, supple Cardiovascular/Respiratory Exam: chest non-tender, normal breath sounds, regular rate/rhythm, no respiratory distress Abdominal Exam: non-tender, No guarding Back Exam: normal inspection, No vertebral tenderness Shoulder Exam: normal inspection, non-tender Elbow/Forearm Exam: normal inspection, non-tender Wrist Exam: bone tenderness, limited ROM, soft tissue tenderness (There is swelling soft tissue tenderness and bony tenderness with restricted range of motion over the dorsum of the left wrist and hand.) Hand Exam: bone tenderness, soft tissue tenderness, stiffness, swelling (There is been decreased range of motion bony tenderness soft tissue tenderness stiffness and swelling of the left wrist and hand) Neuro/Tendon Exam: normal sensation, normal motor functions Mental Status Exam: alert, oriented x 3, cooperative Skin Exam: normal color, warm, dry SpO2: 92 - Course Nursing assessment & vital signs reviewed: Yes - Radiology Exams Left Wrist X-ray Interpretation: Reviewed by me (Both the wrist and the hand x-ray show degenerative changes.) Ordered Tests: Active Orders 24 hr Category Date Time Status HAND (MINIMUM 3 VIEWS) Stat Exams 12/29/21 10:11 Completed WRIST (MIN 3 VIEWS) Stat Exams 12/29/21 10:12 Completed CBC W DIFF Stat Lab 12/29/21 10:30 Completed CMP Stat Lab 12/29/21 10:30 Completed Lactic Acid Stat Lab 12/29/21 10:30 Completed MAG [MAGNESIUM] Stat Lab 12/29/21 10:15 Completed UA W/RFX UR CULTURE Stat Lab 12/29/21 10:15 Ordered Uric Acid Stat Lab 12/29/21 10:15 Completed Medication Summary Discontinued Medications Generic Name Dose Route Start Last Admin Trade Name Esther PRN Reason Stop Dose Admin Methylprednisolone Sodium 0 mg 12/29/21 10:13 12/29/21 10:55 Succinate 125 mg/ Sterile IV 12/29/21 10:14 125 mg Water 2 ml STAT ONE Administration Sodium Chloride 500 mls @ 500 mls/hr 12/29/21 10:13 12/29/21 10:55 Sodium Chloride 0.9% 500 Ml IV 12/29/21 11:12 500 mls/hr .Q1H ONE Administration Sodium Chloride Confirm 12/29/21 10:54 Sodium Chloride 0.9% 500 Ml Administered 12/29/21 10:55 Dose 500 mls @ ud IV .STK-MED ONE Methylprednisolone Sodium Succinate Confirm 12/29/21 10:53 Methylprednis Sod Succ 125 Mg/2 Ml Vial Administered 12/29/21 10:54 Dose 125 mg .ROUTE .STK-MED ONE Sterile Water Confirm 12/29/21 10:53 Water For Injection,Sterile 10 Ml Vial Administered 12/29/21 10:54 Dose 10 ml IJ .STK-MED ONE Lab/Rad Data: Laboratory Result Diagrams 12/29/21 10:30 12/29/21 10:30 Laboratory Results 12/29/21 12/29/21 12/29/21 Range/Units 10:30 10:30 10:30 WBC 8.4 (4.0-10.5) K/mm3 RBC 3.47 L (4.1-5.6) M/mm3 Hgb 10.0 L (12.5-18.0) gm/dl Hct 32.4 L (42-50) % MCV 93.4 (78-100) fl MCH 28.8 (26-32) pg MCHC 30.9 L (32-36) g/dl RDW 15.2 H (11.5-14.0) % Plt Count 209 (150-450) K/mm3 MPV 11.2 H (7.5-11.0) fl Gran % 81.6 H (36.0-66.0) % Eos # (Auto) 0.05 (0-0.5) Absolute Lymphs (auto) 1.01 (1.0-4.6) Absolute Monos (auto) 0.47 (0.0-1.3) Lymphocytes % 12.1 L (24.0-44.0) % Monocytes % 5.6 (0.0-12.0) % Eosinophils % 0.6 (0.00-5.0) % Basophils % 0.1 (0.0-0.4) % Absolute Granulocytes 6.82 (1.4-6.9) Basophils # 0.01 (0-0.4) Sodium 140 (137-145) mmol/L Potassium 4.0 (3.5-5.1) mmol/L Chloride 102 (98-107) mmol/L Carbon Dioxide 31 H (22-30) mmol/L Anion Gap 10.7 (5-15) MEQ/L BUN 64 H (9-20) mg/dL Creatinine 1.35 H (0.66-1.25) mg/dL Estimated GFR 56.4 ML/MIN Glucose 216 H (74-106) mg/dL Lactic Acid 1.7 (0.4-2.0) Uric Acid (3.5-7.2) mg/dL Calcium 9.6 (8.4-10.2) mg/dL Magnesium (1.6-2.3) mg/dL Total Bilirubin 0.70 (0.2-1.3) mg/dL AST 20 (17-59) U/L ALT 13 (0-50) U/L Alkaline Phosphatase 92 (38-126) U/L Serum Total Protein 6.6 (6.3-8.2) g/dL Albumin 3.7 (3.5-5.0) g/dL 12/29/21 Range/Units 10:15 WBC (4.0-10.5) K/mm3 RBC (4.1-5.6) M/mm3 Hgb (12.5-18.0) gm/dl Hct (42-50) % MCV (78-100) fl MCH (26-32) pg MCHC (32-36) g/dl RDW (11.5-14.0) % Plt Count (150-450) K/mm3 MPV (7.5-11.0) fl Gran % (36.0-66.0) % Eos # (Auto) (0-0.5) Absolute Lymphs (auto) (1.0-4.6) Absolute Monos (auto) (0.0-1.3) Lymphocytes % (24.0-44.0) % Monocytes % (0.0-12.0) % Eosinophils % (0.00-5.0) % Basophils % (0.0-0.4) % Absolute Granulocytes (1.4-6.9) Basophils # (0-0.4) Sodium (137-145) mmol/L Potassium (3.5-5.1) mmol/L Chloride (98-107) mmol/L Carbon Dioxide (22-30) mmol/L Anion Gap (5-15) MEQ/L BUN (9-20) mg/dL Creatinine (0.66-1.25) mg/dL Estimated GFR ML/MIN Glucose (74-106) mg/dL Lactic Acid (0.4-2.0) Uric Acid 6.6 (3.5-7.2) mg/dL Calcium (8.4-10.2) mg/dL Magnesium 1.6 (1.6-2.3) mg/dL Total Bilirubin (0.2-1.3) mg/dL AST (17-59) U/L ALT (0-50) U/L Alkaline Phosphatase (38-126) U/L Serum Total Protein (6.3-8.2) g/dL Albumin (3.5-5.0) g/dL - Progress Progress: unchanged - Departure Departure Disposition: Home Clinical Impression: Arthritis of wrist, left, degenerative Condition: Stable Critical Care Time: No Referrals: NICCI CLAROS MD [Primary Care Provider] - Follow up/PCP as directed Instructions: Hand Pain (DC), Osteoarthritis (DC) Prescriptions: Hydrocodone/Acetaminophen [Hydrocodone-Acetamin 5-325 mg] 1 tab PO Q6HPRN PRN 3 Days #12 tablet MDD 4 PRN Reason: Pain Prednisone 10 mg [Deltasone 10 mg] 20 mg PO BID 6 Days #12 tablet
[2021-12-29] MEDS ORDERED: solu-MEDROL ONE (10:53)
[2021-12-29] MEDS ORDERED: Sterile H2O 10 ml IJ ONE (10:53)
[2021-12-29 10:56] LABS: ALBUMIN 3.7 g/dL (3.5-5.0); ANION GAP 10.7 MEQ/L (5-15); BILIRUBIN,TOTAL 0.7 mg/dL (0.2-1.3); Calcium 9.6 mg/dL (8.4-10.2); Creatinine 1 1.35 mg/dL (0.66-1.25); EST GLOMERULAR FILTRATION RATE 56.4 ML/MIN; Total Protein 6.6 g/dL (6.3-8.2)
[2021-12-29 11:12] LABS: MAGNESIUM 1.6 mg/dL (1.6-2.3); Uric Acid 6.6 mg/dL (3.5-7.2)
[2021-12-29 11:38] VITALS: BP 133/70; PULSE 72; O2SAT 94
== END 2021-12-29 11:59 | disposition home or self-care (01) ==
LOC: ED 10:03
DX: M19.032 Primary osteoarthritis, left wrist (principal); M25.532 Pain in left wrist; M79.642 Pain in left hand; J44.9 Chronic obstructive pulmonary disease, unspecified; E11.9 Type 2 diabetes mellitus without complications; Z79.01 Long term (current) use of anticoagulants; Z79.4 Long term (current) use of insulin; Z79.899 Other long term (current) drug therapy; Z72.0 Tobacco use; Z79.891 Long term (current) use of opiate analgesic; Z79.52 Long term (current) use of systemic steroids
CPT/HCPCS: 36000; 36415; 73110; 73130; 80053; 83605; 83735; 84550; 85025; 86140; 96374; 99284; J2930; L3908

== ENCOUNTER 2022-07-22 18:17 | Emergency (ER) | payer MEDICARE, OTHER ==
[2022-07-22] MEDS ORDERED: MORPHINE SULFATE 4 MG INJ IV ONE (19:08)
--- NOTE | 2022-07-22 19:14 | ERPHSYRPT ---
- History of Present Illness Time Seen by Provider: 07/22/22 19:11 Historian: patient Exam Limitations: no limitations Patient Subjective Stated Complaint: C/O chest pain all day today, denies SOB. Triage Nursing Assessment: Patient arrived by ambulance. No SOB noted. He is alert and oriented. Patient's skin with a bit of a jaundiced tint to it. Skin is dry; not diaphoretic. A cough is noted but patient indicates that this is not new. Physician History: Patient is 67-year-old male came to the emergency room with left-sided chest pain and epigastric and lower chest wall area nonradiating for last 2 days. Pain is constant. Pain is not associated with shortness of breath. Patient also has a significant past medical history of hypertension diabetes as well as severe peripheral vascular disease and vascular insufficiency. Patient is following with superintendent general Dr. Taylor as well as Dr. Andrews for his leg probl ems. Patient denies any nausea vomiting diarrhea blood in urine or stool. Patient also denies any throbbing headache. Timing/Duration: day(s) (two) Activities at Onset: none Chest Pain Radiation: no radiation Severity of Pain-Max: mild Severity of Pain-Current: mild Modifying Factors: Improves With: nothing Associated Symptoms: denies symptoms Nitro Today/Relief: no nitro taken today Aspirin Treatment Today: no aspirin today Body Map: 1 - area of pain Allergies/Adverse Reactions: gabapentin Adverse Reaction (Verified 07/22/22 18:24) "got kind of loopy" Home Medications: Metformin HCl [Glucophage] 1,000 mg PO BID 01/22/17 [History] Glipizide [Glipizide ER] 10 mg PO DAILY 10/06/18 [History] Atorvastatin Calcium [Lipitor] 40 mg PO DAILY 05/26/19 [History] Losartan Potassium 50 mg [Cozaar 50 MG] 50 mg PO DAILY 05/26/19 [History] Furosemide 40 mg [Lasix 40 MG] 1 tab PO BID 07/18/19 [History] Ezetimibe 10 mg PO DAILY 04/26/20 [History] Clopidogrel Bisulfate [PLAVIX Tablet] 75 mg PO DAILY 02/10/21 [History] Hydrochlorothiazide 25 mg [hydroDIURIL 25 MG] 25 mg PO DAILY 02/10/21 [History] Insulin Glargine [Lantus Insulin] 20 unit SQ HS 02/10/21 [History] Meloxicam [Mobic] 15 mg PO DAILY 02/10/21 [History] carvediloL [Carvedilol] 25 mg PO BID 02/10/21 [History] Acetaminophen 500 mg [Tylenol Extra Strength 500 mg] 1,000 mg PO TIDPRN 06/06/21 [History] Allopurinol 100 mg [Zyloprim 100 mg] 100 mg PO DAILY 06/06/21 [History] Duloxetine HCl [Cymbalta] 60 mg PO DAILY 06/06/21 [History] Ferrous Sulfate 325 mg [Feosol 325 mg] 325 mg PO BID 06/06/21 [History] Honey [Medihoney] 44 ml TP DAILY 06/06/21 [History] Hx Tetanus, Diphtheria Vaccination/Date Given: Yes Hx Influenza Vaccination/Date Given: No Hx Pneumococcal Vaccination/Date Given: No Immunizations Up to Date: Yes Travel Risk - International Travel Have you traveled outside of the country in past 3 weeks: No - Coronavirus Screening Are you exhibiting any of the following symptoms?: No Close contact with a COVID-19 positive Pt in past 14-21 Days: No - Vaccine Status Have you recieved a Covid-19 vaccination: No - Review of Systems Constitutional: No Fever, No Chills Eyes: No Symptoms Ears, Nose, & Throat: No Symptoms Respiratory: No Cough, No Dyspnea Cardiac: Chest Pain, No Edema, No Syncope Abdominal/Gastrointestinal: No Abdominal Pain, No Nausea, No Vomiting, No Diarrhea Genitourinary Symptoms: No Dysuria Musculoskeletal: No Back Pain, No Neck Pain Skin: No Rash Neurological: No Dizziness, No Focal Weakness, No Sensory Changes Psychological: No Symptoms Endocrine: No Symptoms All Other Systems: Reviewed and Negative - Past Medical History Pertinent Past Medical History: Yes Neurological History: No Pertinent History ENT History: No Pertinent History Cardiac History: Angina, Coronary Artery Disease, High Cholesterol, Hypertension, Myocardial Infarction ([place]) Respiratory History: COPD Endocrine Medical History: Diabetes Type II Musculoskeletal History: Osteoarthritis GI Medical History: No Pertinent History History: No Pertinent History Psycho-Social History: No Pertinent History Male Reproductive Disorders: No Pertinent History Other Medical History: fractured ribs, anemia, gout - Past Surgical History Past Surgical History: Yes (DECEMBER TRIPLE BYPASS) Neuro Surgical History: No Pertinent History Cardiac: CABG, Other Respiratory: Chest Surgery Gastrointestinal: No Pertinent History Genitourinary: No Pertinent History Musculoskeletal: Orthopedic Surgery Male Surgical History: No Pertinent History Other Surgical History: umbilical, triple bypass, L shoulder - Social History Smoking Status: Current every day smoker How long have you smoked: 40 years Exposure to second hand smoke: Yes Drug Use: none Patient Lives Alone: No - Nursing Vital Signs Nursing Vital Signs: Initial Vital Signs Temperature 97.8 F 07/22/22 18:24 Pulse Rate 78 07/22/22 18:24 Respiratory Rate 16 07/22/22 18:24 Blood Pressure 191/102 07/22/22 18:24 O2 Sat by Pulse Oximetry 94 L 07/22/22 18:24 Pain Scale Pain Intensity 2 - Physical Exam General Appearance: no apparent distress, alert Eye Exam: PERRL/EOMI, eyes nml inspection Ears, Nose, Throat Exam: normal ENT inspection, moist mucous membranes Neck Exam: normal inspection, non-tender, supple, full range of motion Respiratory Exam: normal breath sounds, lungs clear, No respiratory distress Cardiovascular Exam: regular rate/rhythm, normal heart sounds, capillary refill >3 sec Gastrointestinal/Abdomen Exam: soft, No tenderness, No mass Back Exam: normal inspection, No CVA tenderness, No vertebral tenderness Extremity Exam: normal inspection, normal range of motion Neurologic Exam: alert, oriented x 3, cooperative, normal mood/affect, sensation nml, No motor deficits Skin Exam: normal color, warm, dry SpO2: 94 - Course Nursing assessment & vital signs reviewed: Yes EKG Interpreted by Me: Non-specific ST Changes Rhythm Strip: Normal Sinus Rhythm - Radiology Exams Chest X-ray Interpretation: Reviewed by me (COPD changes. SScarring left lower lobe) Ordered Tests: Active Orders 24 hr Category Date Time Status Logging Equipment Operator STAT Care 07/22/22 19:10 Active EKG-ER Only STAT Care 07/22/22 19:08 Active Oxygen-ED Only Nasal Cannula 2 lpm Care 07/22/22 19:08 Active CHEST 1 VIEW (PORTABLE) Stat Exams 07/22/22 19:30 Taken CBC W DIFF Stat Lab 07/22/22 19:26 Completed CMP Stat Lab 07/22/22 19:26 Completed NT PRO BNP Stat Lab 07/22/22 19:26 Completed TROPONIN Q4H Lab 07/22/22 19:26 Completed TROPONIN Q4H Lab 07/22/22 23:15 Ordered TROPONIN Q4H Lab 07/23/22 03:15 Ordered Medication Summary Generic Name Dose Route Start Last Admin Trade Name Freq PRN Reason Stop Dose Admin Sodium Chloride 1,000 mls @ 100 mls/hr 07/22/22 19:15 07/22/22 19:20 Sodium Chloride 0.9% 1000 Ml IV 08/21/22 19:14 100 mls/hr .Q10H ZARIA Administration Azithromycin 500 mg in 250 mls @ 250 mls/hr 07/22/22 19:56 07/22/22 20:16 Zithromax 500 Mg/ 250 Ml Nacl Premix IV 07/22/22 20:55 Not Given STAT STA Discontinued Medications Generic Name Dose Route Start Last Admin Trade Name Freq PRN Reason Stop Dose Admin Methylprednisolone Sodium 0 mg 07/22/22 19:57 07/22/22 20:21 Succinate 125 mg/ Sterile IV 07/22/22 19:58 125 mg Water 2 ml STAT ONE Administration Furosemide 20 mg 07/22/22 20:11 07/22/22 20:25 Furosemide 20 Mg/Vial IV 07/22/22 20:12 20 mg DAILY STA Administration Furosemide Confirm 07/22/22 20:24 Furosemide 20 Mg/Vial Administered 07/22/22 20:25 Dose 20 mg .ROUTE .STK-MED ONE Ceftriaxone Sodium/Dextrose 1 g in 50 mls @ 100 mls/hr 07/22/22 19:56 07/22/22 20:21 Rocephin 1 Gm-D5w 50 Ml Bag IV 07/22/22 20:25 100 ml/hr STAT STA 100 mls/hr Administration Ceftriaxone Sodium/Dextrose Confirm 07/22/22 20:01 Rocephin 1 Gm-D5w 50 Ml Bag Administered 07/22/22 20:02 Dose 1 g in 50 mls @ ud IV .STK-MED ONE Methylprednisolone Sodium Succinate Confirm 07/22/22 20:01 Methylprednis Sod Succ 125 Mg/2 Ml Vial Administered 07/22/22 20:02 Dose 125 mg .ROUTE .STK-MED ONE Morphine Sulfate 4 mg 07/22/22 19:08 07/22/22 19:20 Morphine Sulfate 4 Mg/Ml Injection IV 07/22/22 19:09 4 mg STAT ONE Administration Morphine Sulfate Confirm 07/22/22 19:15 Morphine Sulfate 4 Mg/Ml Injection Administered 07/22/22 19:16 Dose 4 mg .ROUTE .STK-MED ONE Sterile Water Confirm 07/22/22 20:01 Water For Injection,Sterile 10 Ml Vial Administered 07/22/22 20:02 Dose 10 ml IJ .STK-MED ONE Lab/Rad Data: Laboratory Result Diagrams 07/22/22 19:26 07/22/22 19:26 Laboratory Results 07/22/22 07/22/22 07/22/22 Range/Units 19:26 19:26 19:26 WBC 5.2 (4.0-10.5) x10^3/uL RBC 3.63 L (4.1-5.6) x10^6/uL Hgb 10.3 L (12.5-18.0) g/dL Hct 33.8 L (42-50) % MCV 93.1 (78-100) fL MCH 28.4 (26-32) pg MCHC 30.5 L (32-36) g/dL RDW 14.7 H (11.5-14.0) % Plt Count 157 (150-450) x10^3/uL MPV 11.7 H (7.5-11.0) fL Gran % 72.8 H (36.0-66.0) % Immature Gran % (Auto) 0.2 (0.00-0.4) % Nucleat RBC Rel Count 0.0 (0.00-0.1) % Eos # (Auto) 0.08 (0-0.5) x10^3/uL Immature Gran # (Auto) 0.01 (0.00-0.03) x10^3u/L Absolute Lymphs (auto) 0.93 L (1.0-4.6) x10^3/uL Absolute Monos (auto) 0.40 (0.0-1.3) x10^3/uL Absolute Nucleated RBC 0.00 (0.00-0.01) x10^3u/L Lymphocytes % 17.7 L (24.0-44.0) % Monocytes % 7.6 (0.0-12.0) % Eosinophils % 1.5 (0.00-5.0) % Basophils % 0.2 (0.0-0.4) % Absolute Granulocytes 3.81 (1.4-6.9) x10^3/uL Basophils # 0.01 (0-0.4) x10^3/uL Sodium 141 (137-145) mmol/L Potassium 3.5 (3.5-5.1) mmol/L Chloride 103 (98-107) mmol/L Carbon Dioxide 34 H (22-30) mmol/L Anion Gap 7.3 (5-15) MEQ/L BUN 36 H (9-20) mg/dL Creatinine 1.20 (0.66-1.25) mg/dL Estimated GFR > 60.0 ML/MIN Glucose 91 (74-106) mg/dL Calcium 9.1 (8.4-10.2) mg/dL Total Bilirubin 0.40 (0.2-1.3) mg/dL AST 21 (17-59) U/L ALT 15 (0-50) U/L Alkaline Phosphatase 101 (38-126) U/L Troponin I 0.022 (0.000-0.034) ng/mL NT-Pro-B Natriuret Pep 3880 H (0-900) pg/mL Serum Total Protein 6.3 (6.3-8.2) g/dL Albumin 3.6 (3.5-5.0) g/dL - Progress Progress: improved Air Movement: good Blood Culture(s) Obtained: No Antibiotics given: Yes Counseled pt/family regarding: lab results, diagnosis, need for follow-up, rad results - Departure Departure Disposition: Home Clinical Impression: CHF (congestive heart failure) Qualifiers: Heart failure type: combined systolic and diastolic Heart failure chronicity: acute on chronic Qualified Code(s): I50.43 - 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 The patient was counseled regarding Diagnosis,Lab results, Imaging studies, need for follow up and when to return to the Emergency Room. Prescriptions given: Discharge Note I have spoken with the patient and/or caregivers. I have explained the patient's condition, diagnosis and treatment plan based on the information available to me at this time. I have answered the patient's and/or caregiver's questions and addressed any concerns. The patient and/or caregivers have as good understanding of the patient's diagnosis, condition and treatment plan as can be expected at this point. The vital signs have been stable. The patient's condition is stable and appropriate for discharge from the emergency department. The patient will pursue further outpatient evaluation with the primary care physician or other designated or consulting physician as outlined in the discharge instructions. The patient and/or caregivers are agreeable to this plan of care and follow-up instructions have been explained in detail. The patient and/or caregivers have received these instruction. The patient/and or caregivers are aware that any significant change in condition or worsening of symptoms sh ould prompt an immediate return to this or the closest emergency department or call 911. ESTEFANIA CLEMENTS was seen on 07/22/22 n the Emergency Room. At that time you were treated for an emergent condition, during your visit Laboratory, Radiology and/or other procedures may have been ordered. It is very important that you follow-up with your Primary Care Physician NICCI CLAROS within the next 24- 48 hours to review your Emergency Room visit and the final results of testing that was ordered. Some test results such as Urine Cultures, Blood Cultures, and other cultures if ordered will not be finalized for 24-48 hours. If you do not have a Primary Care Provider please call the medical records department at [phone] ext [phone] to obtain a copy of your results or you may sign into our patient portal to obtain these results by visiting us @ [email or web address] and completing the following steps: 1. Click on the Patient Portal link 2. Click the Patient Self Enrollment Link to complete the enrollment form and entering your 3. Once the enrollment form is completed you will receive an email with a temporary ID and password at the email address you provided. 4. Next choose a user name and password. Your user name must be at least 4 characters long and your password must be at least 4 characters long. 5. Choose a security question from the list and provide your answer to the question. If you already have signed into the Health Portal you may access your Health Care Information 03/05 by the following steps: 1. Login to our website @ [email or web address] 2. Enter your original user name and password. FAQS The [facility] Health Portal is an online tool that contains your Lab Results, Radiology Reports, Visit History, Discharge Instructions and Health Summary Lab and Radiology Results will not be available for 72 hours on the portal. The Portal is a secure site, passwords are encryted and URLs are re-written so they cannot be copied and pasted. You and authorized family members are the only ones who can access your Portal. Also there is a timeout feature that protects your information if you leave the Portal page open. If you have technical difficulty please use the Contact Us link on the page this will allow you to submit any questions you have regarding the Portal or you may contact the Medical Record Department at [phone] ext [phone]. Prescriptions: Cephalexin Mh 500 mg [Keflex 500 mg] 500 mg PO Q6H #40 cap Methylprednisolone Packet [Medrol Dosepack] 4 mg PO UD #21 packet
[2022-07-22] MEDS ORDERED: MORPHINE SULFATE 4 MG INJ ONE (19:15)
[2022-07-22] MEDS ORDERED: Sodium Chloride 0.9% 1000 ML 1,000 ML IV SCH (19:15)
[2022-07-22] MEDS ORDERED: Sodium Chloride 0.9% 1000 ML 1,000 ML ONE (19:15)
[2022-07-22 19:29] LABS: Absolute Neutrophil Ct (ANC) 3.81 x10^3/uL (1.4-6.9); Basophil (Absolute #) 0.01 x10^3/uL (0-0.4); Eosinophil % 1.5 % (0.00-5.0); Eosinophil (Absolute #) 0.08 x10^3/uL (0-0.5); Hematocrit 33.8 % (42-50); Hemoglobin 10.3 g/dL (12.5-18.0); Lymphocyte (Absolute #) 0.93 x10^3/uL (1.0-4.6); Lymphocytes % 17.7 % (24.0-44.0); Mean Cell Volume 93.1 fL (78-100); Mean Corpuscular Hemoglobin 28.4 pg (26-32); Mean Corpuscular Hgb Concent. 30.5 g/dL (32-36); Mean Platelet Volume 11.7 fL (7.5-11.0); Monocytes % 7.6 % (0.0-12.0); Neutrophil % 72.8 % (36.0-66.0); Platelet Count 157 x10^3/uL (150-450); Red Blood Count 3.63 x10^6/uL (4.1-5.6); Red Cell Distribution Width 14.7 % (11.5-14.0); White Blood Count 5.2 x10^3/uL (4.0-10.5)
[2022-07-22 19:54] LABS: ALBUMIN 3.6 g/dL (3.5-5.0); ALKALINE PHOSPHATASE 101 U/L (38-126); ANION GAP 7.3 MEQ/L (5-15); BLOOD UREA NITROGEN 36 mg/dL (9-20); CHLORIDE 103 mmol/L (98-107); Calcium 9.1 mg/dL (8.4-10.2); Carbon Dioxide 34 mmol/L (22-30); EST GLOMERULAR FILTRATION RATE > 60.0 ML/MIN; Glucose 91 mg/dL (74-106); NT PRO BNP 3880 pg/mL (0-900); Potassium 3.5 mmol/L (3.5-5.1); SGOT/AST 21 U/L (17-59); SGPT/ALT 15 U/L (0-50); SODIUM 141 mmol/L (137-145); Total Protein 6.3 g/dL (6.3-8.2)
[2022-07-22] MEDS ORDERED: Zithromax 500 MG/ 250 ML NaCl Premix 500 MG/250 ML IVPB IV STA (19:56)
[2022-07-22] MEDS ORDERED: ROCEPHIN 1 Gm-D5w 50 ml Bag** 1 G/50 ML IVPB IV STA (19:56)
[2022-07-22] MEDS ORDERED: solu-MEDROL 125 MG, Sterile H2O 10 ml 2 ML IV ONE ×2 (19:57)
[2022-07-22] MEDS ORDERED: solu-MEDROL ONE (20:01)
[2022-07-22] MEDS ORDERED: Sterile H2O 10 ml IJ ONE (20:01)
[2022-07-22] MEDS ORDERED: ROCEPHIN 1 Gm-D5w 50 ml Bag** 1 G/50 ML IVPB IV ONE (20:01)
[2022-07-22] MEDS ORDERED: Lasix 20 MG/2 ML IV STA (20:11)
[2022-07-22] MEDS ORDERED: Lasix 20 MG/2 ML ONE (20:24)
[2022-07-22 20:56] VITALS: BP 171/56; PULSE 72; O2SAT 96
--- NOTE | 2022-07-23 08:42 | XRAY ---
Indication: Chest pain. Comparison: December 21, 2021 Portable chest unchanged again hyperinflated with left mid to lower lung fibrosis/scarring and a few tiny bilateral calcified granulomas. No focal infiltrate, consolidation, or large effusion. Heart not enlarged again with CABG. Bony thorax intact again with osteopenia and degenerative changes. Impression: Continued nonacute hyperinflated chest with chronic features.
== END 2022-07-22 20:56 | disposition home or self-care (01) ==
LOC: ED 18:17
DX: I11.0 Hypertensive heart disease with heart failure (principal); I50.43 Acute on chronic combined systolic (congestive) and diastolic (congestive) heart failure; J43.1 Panlobular emphysema; R07.9 Chest pain, unspecified; R10.13 Epigastric pain; E11.9 Type 2 diabetes mellitus without complications; E78.5 Hyperlipidemia, unspecified; Z72.0 Tobacco use; Z79.02 Long term (current) use of antithrombotics/antiplatelets; Z79.4 Long term (current) use of insulin; Z79.84 Long term (current) use of oral hypoglycemic drugs; Z79.899 Other long term (current) drug therapy; Z28.310 Unvaccinated for COVID-19
CPT/HCPCS: 36415; 71045; 80053; 83880; 84484; 85025; 93005; 93041; 96365; 96374; 96375; 99284; 99291; J0696; J1940; J2270; J2930

== ENCOUNTER 2022-08-18 00:09 | Emergency (ER) | payer MEDICARE, OTHER ==
[2022-08-18] MEDS ORDERED: XYLOCAINE 1% HCL 20 ML MDV IJ ONE (00:10)
--- NOTE | 2022-08-18 01:05 | ERPHSYRPT ---
- History of Present Illness Time Seen by Provider: 08/18/22 00:20 Source: patient, EMS Exam Limitations: no limitations Patient Subjective Stated Complaint: pt states he has been having leg pain in lower left legthat has been bothering him for the last year off and on but today is worse Triage Nursing Assessment: pt is alert and oriented. was brought to ER via [facility]. pt was transferred by three assist to bed from cot. lower left leg appears red and irritated, with an opened area.pt rates leg pain 07/20 Physician History: This is a 67-year-old diabetic white male patient of Dr. Claros who fell within the last week or so per his report. He has had intermittent left leg pain for the last year. Today his pain worsened. He is not on any pain medication. Patient was brought to the emergency department by home via ambulance. Patient continues to smoke cigarettes daily. He has not had a fever per his report. He denies chest pain. He denies shortness of breath. Occurred: other (Pain worsened today) Quality: intermittent, aching Severity of Pain-Max: moderate Severity of Pain-Current: moderate Lower Extremities Pain: leg: left (Left lower leg) Modifying Factors: Improves With: movement Associated Symptoms: other (Hurts to bear weight) Allergies/Adverse Reactions: gabapentin Adverse Reaction (Verified 07/22/22 18:24) "got kind of loopy" Home Medications: Metformin HCl [Glucophage] 1,000 mg PO BID 01/22/17 [History] Glipizide [Glipizide ER] 10 mg PO DAILY 10/06/18 [History] Atorvastatin Calcium [Lipitor] 40 mg PO DAILY 05/26/19 [History] Losartan Potassium 50 mg [Cozaar 50 MG] 50 mg PO DAILY 05/26/19 [History] Furosemide 40 mg [Lasix 40 MG] 1 tab PO BID 07/18/19 [History] Ezetimibe 10 mg PO DAILY 04/26/20 [History] Clopidogrel Bisulfate [PLAVIX Tablet] 75 mg PO DAILY 02/10/21 [History] Hydrochlorothiazide 25 mg [hydroDIURIL 25 MG] 25 mg PO DAILY 02/10/21 [History] Insulin Glargine [Lantus Insulin] 20 unit SQ HS 02/10/21 [History] Meloxicam [Mobic] 15 mg PO DAILY 02/10/21 [History] carvediloL [Carvedilol] 25 mg PO BID 02/10/21 [History] Acetaminophen 500 mg [Tylenol Extra Strength 500 mg] 1,000 mg PO TIDPRN 06/06/21 [History] Allopurinol 100 mg [Zyloprim 100 mg] 100 mg PO DAILY 06/06/21 [History] Duloxetine HCl [Cymbalta] 60 mg PO DAILY 06/06/21 [History] Ferrous Sulfate 325 mg [Feosol 325 mg] 325 mg PO BID 06/06/21 [History] Honey [Medihoney] 44 ml TP DAILY 06/06/21 [History] Hx Tetanus, Diphtheria Vaccination/Date Given: Yes Hx Influenza Vaccination/Date Given: No Hx Pneumococcal Vaccination/Date Given: No Travel Risk - International Travel Have you traveled outside of the country in past 3 weeks: No - Coronavirus Screening Are you exhibiting any of the following symptoms?: No Close contact with a COVID-19 positive Pt in past 14-21 Days: No - Vaccine Status Have you recieved a Covid-19 vaccination: No - Review of Systems Constitutional: No Symptoms Eyes: No Symptoms Ears, Nose, & Throat: No Symptoms Respiratory: No Symptoms Cardiac: No Symptoms Abdominal/Gastrointestinal: No Symptoms Genitourinary Symptoms: No Symptoms Musculoskeletal: No Symptoms Skin: Cellulitis (Left lower leg) Neurological: No Symptoms Psychological: No Symptoms Endocrine: No Symptoms Hematologic/Lymphatic: No Symptoms Immunological/Allergic: No Symptoms All Other Systems: Reviewed and Negative - Past Medical History Pertinent Past Medical History: Yes Neurological History: No Pertinent History ENT History: No Pertinent History Cardiac History: Angina, Coronary Artery Disease, High Cholesterol, Hypertension, Myocardial Infarction ([place]) Respiratory History: COPD Endocrine Medical History: Diabetes Type II Musculoskeletal History: Osteoarthritis GI Medical History: No Pertinent History History: No Pertinent History Psycho-Social History: No Pertinent History Male Reproductive Disorders: No Pertinent History Other Medical History: fractured ribs, anemia, gout - Past Surgical History Past Surgical History: Yes (DECEMBER TRIPLE BYPASS) Neuro Surgical History: No Pertinent History Cardiac: CABG, Other Respiratory: Chest Surgery Gastrointestinal: No Pertinent History Genitourinary: No Pertinent History Musculoskeletal: Orthopedic Surgery Male Surgical History: No Pertinent History Other Surgical History: umbilical, triple bypass, L shoulder - Social History Smoking Status: Current every day smoker How long have you smoked: 40 years Exposure to second hand smoke: Yes Drug Use: none Patient Lives Alone: No - Nursing Vital Signs Nursing Vital Signs: Initial Vital Signs Temperature 97.6 F 08/18/22 00:11 Pulse Rate 75 08/18/22 00:11 Respiratory Rate 18 08/18/22 00:11 Blood Pressure 149/74 08/18/22 00:11 O2 Sat by Pulse Oximetry 96 08/18/22 00:11 Pain Scale Pain Intensity 10 - Physical Exam General Appearance: mild distress, alert, anxiety, thin Eyes, Ears, Nose, Throat Exam: normal ENT inspection, moist mucous membranes Neck Exam: normal inspection, non-tender, supple, full range of motion Cardiovascular/Respiratory Exam: chest non-tender, no respiratory distress Gastrointestinal/Abdominal Exam: non-tender Back Exam: normal inspection, normal range of motion, No CVA tenderness, No vertebral tenderness Hips Exam: bilateral: non-tender, normal inspection, normal range of motion, no evidence of injury Legs Exam: right leg: non-tender, other (Bilateral chronic venous stasis disease. Left tibial cellulitis), left leg: soft tissue tenderness (Anterior lower leg on the left), bilateral leg: normal range of motion Knees Exam: bilateral knee: non-tender, normal inspection, normal range of motion, no evidence of injury Ankle Exam: left ankle: pain, soft tissue tenderness, other (Cellulitis left anterior ankle. Presence of venous stasis disease bilaterally) Foot Exam: bilateral foot: non-tender, normal inspection, normal range of motion SpO2: 96 - Course Nursing assessment & vital signs reviewed: Yes Ordered Tests: Active Orders 24 hr Category Date Time Status FOOT (MINIMUM 3 VIEWS) Stat Exams 08/18/22 00:18 Ordered LOWER LEG Stat Exams 08/18/22 00:19 Ordered - Progress Progress: improved, pain not gone completely Progress Note: 08/18/22 01:04 X-ray left lower leg shows no acute fracture or dislocation. X-ray left ankle shows no acute fracture or dislocation. There is evidence of radiopaque foreign bodies left heel region. This appears chronic/old Counseled pt/family regarding: diagnosis, need for follow-up, rad results - Departure Clinical Impression: Left leg cellulitis, Chronic venous stasis dermatitis of both lower extremities Condition: Stable Critical Care Time: No Referrals: NICCI CLAROS MD [Primary Care Provider] - Follow up/PCP as directed Additional Instructions: Call Dr. Claros's office tomorrow to make arranges for follow-up appointment for further evaluation of your bilateral lower extremities. Discuss with him further treatment of any remaining cellulitis and evaluate the artery system in both your legs as indicated Prescriptions: Hydrocodone/APAP 5/325 [[place] 5/325 mg] 1 each PO Q8H PRN PRN #6 tablet MDD 3 PRN Reason: Pain Ciprofloxacin [Cipro 500 MG] 500 mg PO BID #14 tablet
[2022-08-18] MEDS ORDERED: PERCOCET TABLET 5/325MG ONE (01:17)
[2022-08-18] MEDS ORDERED: Rocephin 1000 MG INJ ONE (01:17)
[2022-08-18] MEDS ORDERED: Levofloxacin 500 MG Tablet ONE (01:17)
[2022-08-18] MEDS: PERCOCET TABLET 5/325MG PO STA (01:18)
[2022-08-18] MEDS: Rocephin 1000 MG INJ IM ONE (01:19)
[2022-08-18] MEDS: Levofloxacin 500 MG Tablet PO ONE (01:19)
[2022-08-18 02:05] VITALS: BP 127/66; PULSE 68; O2SAT 98
--- NOTE | 2022-08-18 08:39 | XRAY ---
Indication: Pain following injury 2 days ago. Comparison: None 2 view left lower leg demonstrates posterior medial knee vascular clips and mild scattered vascular calcifications. No other bony, articular, or soft tissue abnormalities.
--- NOTE | 2022-08-18 08:41 | XRAY ---
Indication: Pain following injury 2 days ago. Comparison: None 3 nonweightbearing views left foot demonstrates tiny posterior spur, tiny navicular accessory ossicle, mild scattered vascular calcifications, and multiple plantar metallic shrapnel. No other bony, articular, or soft tissue abnormalities.
== END 2022-08-18 02:03 | disposition home or self-care (01) ==
LOC: ED 00:09
DX: L03.116 Cellulitis of left lower limb (principal); I87.2 Venous insufficiency (chronic) (peripheral); M79.605 Pain in left leg; E78.5 Hyperlipidemia, unspecified; I10 Essential (primary) hypertension; E11.9 Type 2 diabetes mellitus without complications; Z72.0 Tobacco use; Z79.02 Long term (current) use of antithrombotics/antiplatelets; Z79.4 Long term (current) use of insulin; Z79.84 Long term (current) use of oral hypoglycemic drugs; Z79.899 Other long term (current) drug therapy; Z28.310 Unvaccinated for COVID-19; Z79.891 Long term (current) use of opiate analgesic
CPT/HCPCS: 73590; 73630; 96372; 99283; J0696; A9270-GY

== ENCOUNTER 2022-10-07 16:05 | Emergency (ER) | payer MEDICARE, OTHER ==
[2022-10-07 18:34] VITALS: BP 173/96; PULSE 89; O2SAT 95
[2022-10-07] MEDS ORDERED: TETRACAINE 0.5% STERI-UNIT SOL OP ONE (18:38)
[2022-10-07] MEDS ORDERED: Fluor-I-Strip/Ful-Flo OP ONE (18:38)
[2022-10-07] MEDS ORDERED: Eye-Stream Solution ONE (18:38)
[2022-10-07] MEDS ORDERED: Erythromycin 3.5 GM OPHTH. OP ONE (18:50)
[2022-10-07] MEDS ORDERED: Erythromycin 1 GM ONE (18:52)
--- NOTE | 2022-10-07 19:01 | ERPHSYRPT ---
- History of Present Illness Time Seen by Provider: 10/07/22 18:30 Source: patient Exam Limitations: no limitations Patient Subjective Stated Complaint: "I woke up yesterday and I felt like something was in my eye and it hurts and my vision is getting bad". Triage Nursing Assessment: Pt presents to ER with complaints of right eye pain, believes FB is in eye. Eye appears extremely red and irritated. Pt states vision is impaired but still able to see some. No obvious FB can be seen by RN upon triage. Pt is alert and oriented x 3. Skin is pink, warm, and dry. Respirations are easy. Rates pain in eye 5/10 scale. Denies nausea/vomiting, denies dizziness or headache. Eye is sensitive to touch. Physician History: Patient is a 67-year-old white male who awoke this morning with a foreign body sensation in the right eye. He also develops scleral hemorrhage he has a foreign body sensation and some pain his vision also is blurred. Timing/Duration: today Location: right eye Severity: moderate Apparent Injury: no Associated Symptoms: sensitivity to light, foreign body sensation, other (Comple te scleral hemorrhage) Chemical Exposure: No Trauma: No Welding Arc/Tanning Bed Exposure: No Allergies/Adverse Reactions: gabapentin Adverse Reaction (Verified 10/07/22 18:34) "got kind of loopy" Home Medications: Metformin HCl [Glucophage] 1,000 mg PO BID 01/22/17 [History] Glipizide [Glipizide ER] 10 mg PO DAILY 10/06/18 [History] Atorvastatin Calcium [Lipitor] 40 mg PO DAILY 05/26/19 [History] Losartan Potassium 50 mg [Cozaar 50 MG] 50 mg PO DAILY 05/26/19 [History] Furosemide 40 mg [Lasix 40 MG] 1 tab PO BID 07/18/19 [History] Ezetimibe 10 mg PO DAILY 04/26/20 [History] Clopidogrel Bisulfate [PLAVIX Tablet] 75 mg PO DAILY 02/10/21 [History] Hydrochlorothiazide 25 mg [hydroDIURIL 25 MG] 25 mg PO DAILY 02/10/21 [History] Insulin Glargine [Lantus Insulin] 20 unit SQ HS 02/10/21 [History] Meloxicam [Mobic] 15 mg PO DAILY 02/10/21 [History] carvediloL [Carvedilol] 25 mg PO BID 02/10/21 [History] Acetaminophen 500 mg [Tylenol Extra Strength 500 mg] 1,000 mg PO TIDPRN 06/06/21 [History] Allopurinol 100 mg [Zyloprim 100 mg] 100 mg PO DAILY 06/06/21 [History] Duloxetine HCl [Cymbalta] 60 mg PO DAILY 06/06/21 [History] Ferrous Sulfate 325 mg [Feosol 325 mg] 325 mg PO BID 06/06/21 [History] Honey [Medihoney] 44 ml TP DAILY 06/06/21 [History] Hx Tetanus, Diphtheria Vaccination/Date Given: No Hx Influenza Vaccination/Date Given: Yes Hx Pneumococcal Vaccination/Date Given: No Immunizations Up to Date: Yes Travel Risk - International Travel Have you traveled outside of the country in past 3 weeks: No - Coronavirus Screening Are you exhibiting any of the following symptoms?: No Close contact with a COVID-19 positive Pt in past 14-21 Days: No - Vaccine Status Have you recieved a Covid-19 vaccination: No - Review of Systems Constitutional: No Fever, No Chills Eyes: Eye Pain, Eye Redness, Foreign Body Sensation Ears, Nose, & Throat: No Symptoms Respiratory: No Cough, No Dyspnea Cardiac: No Chest Pain, No Edema, No Syncope Abdominal/Gastrointestinal: No Abdominal Pain, No Nausea, No Vomiting, No Diarrhea Genitourinary Symptoms: No Dysuria Musculoskeletal: No Back Pain, No Neck Pain Skin: No Rash Neurological: No Dizziness, No Focal Weakness, No Sensory Changes Psychological: No Symptoms Endocrine: No Symptoms All Other Systems: Reviewed and Negative - Past Medical History Pertinent Past Medical History: Yes Neurological History: No Pertinent History ENT History: No Pertinent History Cardiac History: Angina, Coronary Artery Disease, High Cholesterol, Hypertension, Myocardial Infarction (DC) Respiratory History: COPD Endocrine Medical History: Diabetes Type II Musculoskeletal History: Osteoarthritis GI Medical History: No Pertinent History History: No Pertinent History Psycho-Social History: No Pertinent History Male Reproductive Disorders: No Pertinent History Other Medical History: fractured ribs, anemia, gout - Past Surgical History Past Surgical History: Yes (DECEMBER TRIPLE BYPASS) Neuro Surgical History: No Pertinent History Cardiac: CABG, Other Respiratory: Chest Surgery Gastrointestinal: No Pertinent History Genitourinary: No Pertinent History Musculoskeletal: Orthopedic Surgery Male Surgical History: No Pertinent History Other Surgical History: umbilical, triple bypass, L shoulder - Social History Smoking Status: Current every day smoker How long have you smoked: 40 years Exposure to second hand smoke: Yes Drug Use: none Patient Lives Alone: Yes - Nursing Vital Signs Nursing Vital Signs: Initial Vital Signs Temperature 98.2 F 10/07/22 18:23 Pulse Rate 89 10/07/22 18:23 Respiratory Rate 18 10/07/22 18:23 Blood Pressure 173/96 10/07/22 18:23 O2 Sat by Pulse Oximetry 95 10/07/22 18:23 Pain Scale Pain Intensity 5 - Physical Exam General Appearance: mild distress Vision Acuity Degree Evaluation Phase: Uncorrected (Unable to get a good measurement of his visual acuity) Intraocular Pressure (Tonopen): left (And on the left was 11) Eye Exam: right eye: conjunctival hemorrhage, other (Right I was the object of the exam and the symptoms the fundus looked normal to this examiner there was a generalized scleral or conjunctival hemorrhage lids were everted no foreign bodies fluorescein placed no corneal abrasions or ulcerations or foreign bodies noted.), left eye: normal inspection, PERRL, EOMI Ears, Nose, Throat Exam: normal ENT inspection Neck Exam: normal inspection, non-tender, supple Respiratory Exam: airway intact, No respiratory distress Cardiovascular Exam: regular rate/rhythm, normal heart sounds Extremity Exam: normal inspection, normal range of motion Neurologic: alert, oriented x 3, cooperative Skin Exam: normal color, warm, dry SpO2 Interpretation: normal SpO2: 95 O2 Delivery: Room Air Procedures - Eye Procedure Time of Procedure: 19:04 Tetracaine Drops Administered: Yes Antibiotic Oinment/Drps Admin: right eye - Intraocular Pressure by Tonopen Intraocular Pressure-Right Eye (mm Hg): 7 Intraocular Pressure-Left Eye (mm Hg): 11 - Course Nursing assessment & vital signs reviewed: Yes Ordered Tests: Active Orders 24 hr Category Date Time Status Eye Patch Application STAT Care 10/07/22 18:54 Ordered Medication Summary Discontinued Medications Generic Name Dose Route Start Last Admin Trade Name Freq PRN Reason Stop Dose Admin Erythromycin Confirm 10/07/22 18:52 Erythromycin Base 1 Gm Tube Eye Ointment Administered 10/07/22 18:53 Dose 1 gm .ROUTE .STK-MED ONE Erythromycin 3.5 gm 10/07/22 18:50 Erythromycin Base 3.5 Gm Tube Eye Ointment OP 10/07/22 18:51 STAT ONE Eye Irrigation Solution Confirm 10/07/22 18:38 Sodium/Potassium/Demetri/Magnesium 30 Ml Eye Wash Administered 10/07/22 18:39 Dose 30 ml .ROUTE .STK-MED ONE Fluorescein Sodium Confirm 10/07/22 18:38 Fluorescein Sodium 1 Mg/Strip Strip Administered 10/07/22 18:39 Dose 1 mg OP .STK-MED ONE Tetracaine HCl Confirm 10/07/22 18:38 Tetracaine Hcl/Pf 4 Ml Bottle Administered 10/07/22 18:39 Dose 4 ml OP .STK-MED ONE - Progress Progress: improved Progress Note: 10/07/22 19:04 We did get in contact with Dr. Cadena piano mechanic apprentice he agreed to see the patient [id number] tomorrow patient was instructed to follow-up with him. Discussed with Dr.: Other (Dr. Cadena) Will see patient in: office - Departure Departure Disposition: Home Clinical Impression: Conjunctival hemorrhage of right eye Condition: Stable Critical Care Time: No Referrals: NICCI CLAROS MD [Primary Care Provider] - Follow up/PCP as directed Instructions: Foreign Body in Eye (DC)
[2022-10-07] MEDS ORDERED: Erythromycin 1 GM OP STA (19:07)
== END 2022-10-07 19:15 | disposition home or self-care (01) ==
LOC: ED 16:05
DX: H11.31 Conjunctival hemorrhage, right eye (principal); E78.5 Hyperlipidemia, unspecified; I10 Essential (primary) hypertension; E11.9 Type 2 diabetes mellitus without complications; Z79.84 Long term (current) use of oral hypoglycemic drugs; Z79.02 Long term (current) use of antithrombotics/antiplatelets; Z79.4 Long term (current) use of insulin; Z79.899 Other long term (current) drug therapy; Z28.310 Unvaccinated for COVID-19; Z72.0 Tobacco use
CPT/HCPCS: 99282; A9270-GY

== ENCOUNTER 2022-10-23 12:15 | Observation (INO) | payer MEDICARE, OTHER ==
--- NOTE | 2022-10-23 13:21 | XRAY ---
Indication: Frequent falls. Multiple contiguous axial images obtained through the head without contrast. Comparison: May 29, 2020 Again age-appropriate global atrophy and minimal periventricular degenerative micro-ischemia. No acute intracranial hemorrhage, abnormal extra-axial fluid collection, or mass effect. Fourth ventricle is midline without hydrocephalus. Bony calvarium intact. Visualized paranasal sinuses and mastoid air cells are clear. Impression: Continued nonacute senile brain.
--- NOTE | 2022-10-23 13:25 | XRAY ---
Indication: Frequent falls. Multiple contiguous axial images obtained through the cervical spine. Sagittal and coronal reformatted images obtained. Comparison: August 28, 2019 Axial images negative for acute fracture, suspicious bony lesions, or spinal canal stenosis. Again mild C4-C7 degenerative endplate spurring, minimal/mild multilevel bilateral degenerative facet hypertrophy, and moderate atlantoaxial degenerative changes. Sagittal and coronal reformatted demonstrates C4-C7 degenerative disc space narrowing disc space narrowing and minimal 1-2 mm anterolisthesis of C3 on C4. No acute compression fracture or jumped facet. Normal appearing craniocervical junction. Visualized noncontrasted soft tissues again demonstrate mild bilateral carotid calcifications. Impression: 1. Multilevel degenerative spondylosis as detailed including minimal grade 1 C3 anterolisthesis. 2. Negative acute fracture.
--- NOTE | 2022-10-23 13:29 | XRAY ---
Indication: Frequent falls. Multiple contiguous axial images obtained through the chest without contrast. Comparison: August 28, 2019 Lungs again demonstrates mild bilateral dependent atelectasis, scattered fibrosis/scarring, and right lower lobe calcified granulomas. New tiny right effusion. No suspicious pulmonary mass, infiltrate, or pneumothorax. Heart is not enlarged again with CABG surgery. Aorta again minimally arteriosclerotic without aneurysm. Stable small subcarinal and right infrahilar calcified nodes. No pathologic mediastinal lymphadenopathy. Bony thorax again demonstrates mild degenerative changes throughout the spine, old left 1 rib fracture, and sternotomy wires. New healing right lateral [address] abdomen/pelvis reported separately. Impression: 1. New nonspecific tiny right effusion. No acute cardiopulmonary abnormalities on this noncontrast exam. 2. Chronic findings including scattered fibrosis/scarring, arteriosclerotic disease, chronic bony findings, and old granulomatous disease.
--- NOTE | 2022-10-23 13:35 | XRAY ---
Indication: Frequent falls. Multiple contiguous axial images obtained through the abdomen and pelvis without contrast. Comparison: May 29, 2020 CT chest reported separately. Noncontrasted stomach and bowel loops nonobstructed again with normal appendix. There remains mild diffuse scattered colonic fecal debris and sigmoid diverticulosis without diverticulitis. No free fluid/air. Normally distended gallbladder with increasing gallstones/gravel in the neck of the gallbladder, largest 1.7 cm. No abnormal biliary distention. Remaining liver, pancreas, spleen, adrenal glands, kidneys, ureters, and bladder are unremarkable for noncontrast exam. Again mild scattered aortoiliac calcifications without AAA. Osseous structures intact again with mild/moderate degenerative changes throughout the spine, minimal levoscoliosis, and mild degenerative changes of both hips. Stable small bilateral fatty inguinal hernias. Impression: 1. Increasing cholelithiasis. 2. Again mild diffuse fecal stasis, sigmoid diverticulosis, arteriosclerotic disease, bilateral fatty inguinal hernias, and chronic bony findings. 3. Remaining CT abdomen/pelvis without contrast exam is negative.
[2022-10-23 13:41] LABS: ALBUMIN 2.9 g/dL (3.5-5.0); ALKALINE PHOSPHATASE 109 U/L (38-126); ANION GAP 4.3 MEQ/L (5-15); BLOOD UREA NITROGEN 20 mg/dL (9-20); CHLORIDE 108 mmol/L (98-107); Calcium 8.4 mg/dL (8.4-10.2); Carbon Dioxide 31 mmol/L (22-30); Creatinine 1 1.02 mg/dL (0.66-1.25); EST GLOMERULAR FILTRATION RATE > 60.0 ML/MIN; Glucose 158 mg/dL (74-106); Potassium 4.1 mmol/L (3.5-5.1); SGOT/AST 21 U/L (17-59); SGPT/ALT 17 U/L (0-50); SODIUM 139 mmol/L (137-145); Total Protein 5.5 g/dL (6.3-8.2)
[2022-10-23 13:43] LABS: Basophil (Absolute #) 0.01 x10^3/uL (0-0.4); Eosinophil % 0.6 % (0.00-5.0); Eosinophil (Absolute #) 0.04 x10^3/uL (0-0.5); Hematocrit 34.2 % (42-50); Hemoglobin 10.5 g/dL (12.5-18.0); Lymphocyte (Absolute #) 0.82 x10^3/uL (1.0-4.6); Lymphocytes % 11.7 % (24.0-44.0); Mean Cell Volume 92.9 fL (78-100); Mean Corpuscular Hemoglobin 28.5 pg (26-32); Mean Corpuscular Hgb Concent. 30.7 g/dL (32-36); Mean Platelet Volume 11.8 fL (7.5-11.0); Monocytes % 5.7 % (0.0-12.0); Neutrophil % 81.8 % (36.0-66.0); Platelet Count 182 x10^3/uL (150-450); Red Blood Count 3.68 x10^6/uL (4.1-5.6); Red Cell Distribution Width 14.7 % (11.5-14.0)
[2022-10-23 13:49] LABS: INR 0.99 (0.8-3.0); PROTIME 10.5 SECONDS (9.4-12.5); PTT 26.8 SECONDS (25.1-36.5)
[2022-10-23 13:56] LABS: INFLUENZA A NEGATIVE (NEGATIVE); INFLUENZA B NEGATIVE (NEGATIVE); RESPIRATORY SYNCTIAL VIRUS NEGATIVE (Negative); SARS-CoV-2 Xpert Express NEGATIVE (NEGATIVE)
[2022-10-23 14:03] LABS: Amphetamine,Urine NEGATIVE (NEGATIVE); Barbiturate,Urine NEGATIVE (NEGATIVE); Cocaine,Urine NEGATIVE (NEGATIVE); Methadone,Urine NEGATIVE (NEGATIVE); Opiate,Urine NEGATIVE (NEGATIVE); PCP,Urine NEGATIVE (NEGATIVE); THC,Urine NEGATIVE (NEGATIVE)
[2022-10-23 14:05] LABS: Benzodiazepine,Urine NEGATIVE (NEGATIVE)
--- NOTE | 2022-10-23 14:14 | ERPHSYRPT ---
- History of Present Illness Source: patient Exam Limitations: other (Very poor historian) Patient Subjective Stated Complaint: Patient fell today, states 3 different times. Patient denies having previous falls, states this is new today. He does state that he has been out of his routine prescription medications for the past few days and has only been taking his morning aspirin. He is unsure if he hit his head when he fell. He is c/o pain in both hips, his left shoulder, his neck, and RLE. Triage Nursing Assessment: Patient arrived by ambulance. He is alert and orient ed. No SOB. Left shoulder is tender to touch and patient is hesitant to move it. Patient is able to draw up both legs at the knees independenly but does c/o some right groin/knee pain and left hip and left lower back pain when doing it. No external rotation noted to BLE. LLE slightly shorter than RLE. Physician History: 67 yo wm brought in ER by EMS after falling x3 today. Pt is a very poor historian and states that they occurred after letting his dogs out. Pt fell in the house and states that he has a ELIAS/cervical pain/anterior chest pain/lumbar pain/B hip pain/R knee pain/R calf pain. No C-collar or spine board in place upon arrival. Occurred: just prior to arrival Reason for Fall: unknown Injuries/Pain Location: head, neck, back, lower extremity Loss of Consciousness: brief (seconds), dazed Quality: aching Modifying Factors: Improves With: movement Associated Symptoms (Fall): back pain, chest pain, extremity injury, headache, neck pain, No abdominal pain, No dizziness, No lightheadedness, No muscle spasms, No nausea, No ringing in ears, No seizures, No shortness of breath, No slurred speech, No vomiting, No vision changes Allergies/Adverse Reactions: gabapentin Adverse Reaction (Verified 10/23/22 12:18) "got kind of loopy" Home Medications: Metformin HCl [Glucophage] 1,000 mg PO BID 01/22/17 [History] Losartan Potassium 50 mg [Cozaar 50 MG] 50 mg PO DAILY 05/26/19 [History] Furosemide 40 mg [Lasix 40 MG] 1 tab PO DAILY 07/18/19 [History] Ezetimibe 10 mg PO DAILY 04/26/20 [History] Clopidogrel Bisulfate [PLAVIX Tablet] 75 mg PO DAILY 02/10/21 [History] Hydrochlorothiazide 25 mg [hydroDIURIL 25 MG] 25 mg PO DAILY 02/10/21 [History] carvediloL [Carvedilol] 25 mg PO DAILY 02/10/21 [History] Allopurinol 100 mg [Zyloprim 100 mg] 100 mg PO BID 06/06/21 [History] Aspirin EC 81 mg [Ecotrin 81 mg] 1 tab PO DAILY 10/23/22 [History] Hx Tetanus, Diphtheria Vaccination/Date Given: Yes Hx Influenza Vaccination/Date Given: Yes Hx Pneumococcal Vaccination/Date Given: Yes Immunizations Up to Date: Yes Travel Risk - International Travel Have you traveled outside of the country in past 3 weeks: No - Coronavirus Screening Are you exhibiting any of the following symptoms?: No Close contact with a COVID-19 positive Pt in past 14-21 Days: No - Vaccine Status Have you recieved a Covid-19 vaccination: No - Review of Systems Constitutional: No Symptoms Eyes: No Symptoms Ears, Nose, & Throat: No Symptoms Respiratory: No Symptoms Cardiac: No Symptoms Abdominal/Gastrointestinal: No Symptoms Genitourinary Symptoms: No Symptoms Musculoskeletal: Back Pain, Neck Pain, Fall, Injury Skin: No Symptoms Neurological: No Symptoms, Headache Psychological: No Symptoms Endocrine: No Symptoms Hematologic/Lymphatic: No Symptoms Immunological/Allergic: No Symptoms - Past Medical History Pertinent Past Medical History: Yes Neurological History: No Pertinent History ENT History: No Pertinent History Cardiac History: Angina, Coronary Artery Disease, High Cholesterol, Hypertension, Myocardial Infarction ([place]) Respiratory History: COPD Endocrine Medical History: Diabetes Type II Musculoskeletal History: Osteoarthritis GI Medical History: No Pertinent History History: No Pertinent History Psycho-Social History: No Pertinent History Male Reproductive Disorders: No Pertinent History Other Medical History: fractured ribs, anemia, gout - Past Surgical History Past Surgical History: Yes Neuro Surgical History: No Pertinent History Cardiac: CABG, Other Respiratory: Chest Surgery Gastrointestinal: No Pertinent History Genitourinary: No Pertinent History Musculoskeletal: Orthopedic Surgery Male Surgical History: No Pertinent History Other Surgical History: umbilical, triple bypass, L shoulder - Social History Smoking Status: Current every day smoker How long have you smoked: 43 years Exposure to second hand smoke: Yes Drug Use: none Patient Lives Alone: Yes - Nursing Vital Signs Nursing Vital Signs: Initial Vital Signs Temperature 97.8 F 10/23/22 12:15 Pulse Rate 79 10/23/22 12:15 Respiratory Rate 18 10/23/22 12:15 Blood Pressure 172/90 10/23/22 12:15 O2 Sat by Pulse Oximetry 97 10/23/22 12:15 Pain Scale Pain Intensity 2 Hypertensive - [place] Coma Score Best Eye Response ([place]): (4) open spontaneously Best Verbal Response ([place]): (5) oriented Best Motor Response ([place]): (6) obeys commands [place] Total: 15 - Physical Exam General Appearance: no apparent distress Head Injury: tenderness (Occipital TTP w edema or deformity) Eye Exam: PERRL/EOMI ENT Exam: airway nml, No evidence of ENT injury, No clear fluid (ears), No clear fluid (nose), No midface instability Neck Exam: tenderness (C-spine TTP) Respiratory/Chest Exam: chest tenderness (Mid-sternal TTP), normal breath sounds, No respiratory distress Cardiovascular Exam: regular rate/rhythm, murmur (2/6 YANELIS) Gastrointestinal Exam: soft, normal bowel sounds, No tenderness Back Exam: vertebral tenderness (L-spine TTP) Extremity Exam: capillary refill <3 sec, pelvis stable, bony point tenderness (B hips TTP), pain with movement, No deformities Peripheral Pulses: carotid (R): 2+, carotid (L): 2+ Neurologic Exam: alert, oriented x 3, cooperative, blunger loader II-XII nml as tested, normal mood/affect, sensation nml Skin Exam: normal color, warm, dry SpO2 Interpretation: normal SpO2: 94 O2 Delivery: Room Air - Course Nursing assessment & vital signs reviewed: Yes EKG Interpreted by Me: RATE (NSR/Prolonged QTc/IVCD/PVC's/LAFB/No acute ST segment changes) - Radiology Exams Knee X-ray Interpretation: Reviewed by me, Discussed w/ radiologist (R knee neg per Rad) - CT Exams Head CT Interpretation: Discussed w/radiologist (CT head neg) Cervical Spine CT Interpretation: Discussed w/radiologist (CT C-spine no fx/DDD) Chest CT Interpretation: Discussed w/radiologist (CT chest tiny pleural effusion) Abdomen/Pelvis CT Interpretation: Discussed w/radiologist (CT [id number]/Fecal stasis) Other CT Interpretation: Discussed w/radiologist (CTA of chest neg per Rad) Ordered Tests: Active Orders 24 hr Category Date Time Status Bedrest ROUTINE Activity 10/23/22 19:39 Active Code Status Order ROUTINE Care 10/23/22 19:38 Active EKG-ER Only STAT Care 10/23/22 12:39 Active Fall Protocol ROUTINE Care 10/23/22 19:39 Active IV Care Q6H Care 10/23/22 19:38 Active Neuro Checks Q4H Care 10/23/22 19:[address] in Observation ROUTINE Care 10/23/22 19:38 Active Vital Signs Q4H Care 10/23/22 19:38 Active Heart-Healthy Diet Diet 10/24/22 Breakfast Active ABDOMEN AND PELVIS W/0 CONTRAS [CT] Stat Exams 10/23/22 12:43 Completed CERVICAL SPINE WO CONTRAST [CT] Stat Exams 10/23/22 12:41 Completed CHEST WITH CONTRAST [CT] Stat Exams 10/23/22 17:55 Taken CHEST WITHOUT CONTRAST [CT] Stat Exams 10/23/22 12:43 Completed HEAD WITHOUT CONTRAST [CT] Stat Exams 10/23/22 12:41 Completed KNEE (3 VIEWS) Stat Exams 10/23/22 14:29 Completed Alcohol [ETHYL ALCOHOL] Stat Lab 10/23/22 13:50 Completed CBC W DIFF AM.LAB Lab 10/24/22 04:00 Ordered CBC W DIFF Stat Lab 10/23/22 13:15 Completed CMP AM.LAB Lab 10/24/22 04:00 Ordered CMP Stat Lab 10/23/22 13:15 Completed D-DIMER QUANTITATIVE Stat Lab 10/23/22 17:05 Completed PROTIME WITH INR Stat Lab 10/23/22 13:15 Completed PTT Stat Lab 10/23/22 13:15 Completed TROPONIN Q4H Lab 10/23/22 13:15 Completed TROPONIN Q4H Lab 10/23/22 16:09 Completed TROPONIN Q4H Lab 10/23/22 20:45 Ordered UA W/RFX UR CULTURE Stat Lab 10/23/22 14:33 Completed Urine Triage Profile Stat Lab 10/23/22 13:32 Completed Transfer Order Routine Transfer 10/23/22 Ordered Medication Summary Generic Name Dose Route Start Last Admin Trade Name Freq PRN Reason Stop Dose Admin Sodium Chloride 1,000 mls @ 100 mls/hr 10/23/22 19:45 Sodium Chloride 0.9% 1000 Ml IV 11/22/22 19:44 .Q10H [facility] Insulin Human Lispro 0 unit 10/23/22 19:38 Insulin Lispro 1 Unit SQ 11/22/22 19:37 UD PRN HYPERGLYCEMIA Ondansetron HCl 4 mg 10/23/22 19:38 Ondansetron Hcl 4 Mg/2 Ml Vial IV 11/22/22 19:37 Q6H PRN PRN NAUSEA/VOMITING Pantoprazole Sodium 40 mg 10/24/22 10:00 Pantoprazole 40 Mg Vial IV 11/23/22 09:59 Q24H10 [facility] Lab/Rad Data: Laboratory Result Diagrams 10/23/22 13:15 10/23/22 13:15 Laboratory Results 10/23/22 10/23/22 10/23/22 Range/Units 17:05 16:09 14:33 WBC (4.0-10.5) x10^3/uL RBC (4.1-5.6) x10^6/uL Hgb (12.5-18.0) g/dL Hct (42-50) % MCV (78-100) fL MCH (26-32) pg MCHC (32-36) g/dL RDW (11.5-14.0) % Plt Count (150-450) x10^3/uL MPV (7.5-11.0) fL Gran % (36.0-66.0) % Immature Gran % (Auto) (0.00-0.4) % Nucleat RBC Rel Count (0.00-0.1) % Eos # (Auto) (0-0.5) x10^3/uL Immature Gran # (Auto) (0.00-0.03) x10^3u/L Absolute Lymphs (auto) (1.0-4.6) x10^3/uL Absolute Monos (auto) (0.0-1.3) x10^3/uL Absolute Nucleated RBC (0.00-0.01) x10^3u/L Lymphocytes % (24.0-44.0) % Monocytes % (0.0-12.0) % Eosinophils % (0.00-5.0) % Basophils % (0.0-0.4) % Absolute Granulocytes (1.4-6.9) x10^3/uL Basophils # (0-0.4) x10^3/uL PT (9.4-12.5) SECONDS INR (0.8-3.0) APTT (25.1-36.5) SECONDS D-Dimer 0.87 H* (0.0-0.50) mg/L Sodium (137-145) mmol/L Potassium (3.5-5.1) mmol/L Chloride (98-107) mmol/L Carbon Dioxide (22-30) mmol/L Anion Gap (5-15) MEQ/L BUN (9-20) mg/dL Creatinine (0.66-1.25) mg/dL Estimated GFR ML/MIN Glucose (74-106) mg/dL Calcium (8.4-10.2) mg/dL Total Bilirubin (0.2-1.3) mg/dL AST (17-59) U/L ALT (0-50) U/L Alkaline Phosphatase (38-126) U/L Troponin I 0.069 H* (0.000-0.034) ng/mL Serum Total Protein (6.3-8.2) g/dL Albumin (3.5-5.0) g/dL Urine Color Yellow (Yellow) Urine Appearance Clear (Clear) Urine pH 7.0 (4.6-8.0) Ur Specific [place] 1.015 (1.005-1.030) Urine Protein >=1000 A (Negative) Urine Glucose (UA) 100 A (Negative) mg/dL Urine Ketones Negative (Negative) Urine Blood Small A (Negative) Urine Nitrite Negative (Negative) Urine Bilirubin Negative (Negative) Urine Urobilinogen 0.2 (0.2) mg/dL Ur Leukocyte Esterase Negative (Negative) U Hyaline Cast (Auto) 3-5 A (0-2) /LPF Urine Microscopic RBC 3-5 (0-5) /HPF Urine Microscopic WBC 0-2 (0-5) /HPF Ur Epithelial Cells None Seen (None Seen) /HPF Urine Bacteria None Seen (None Seen) /HPF Urine Culture Reflexed NO (NO) Urine Opiates Level (NEGATIVE) Ur Methadone (NEGATIVE) Urine Barbiturates (NEGATIVE) Ur Phencyclidine (PCP) (NEGATIVE) Urine Amphetamine (NEGATIVE) U Benzodiazepine Level (NEGATIVE) Urine Cocaine (NEGATIVE) Urine Marijuana (THC) (NEGATIVE) Ethyl Alcohol (0-10) mg/dL Influenza Type A Ag (NEGATIVE) Influenza Type B Ag (NEGATIVE) RSV (PCR) (Negative) SARS-CoV-2 (PCR) (NEGATIVE) 10/23/22 10/23/22 10/23/22 Range/Units 13:50 13:32 13:15 WBC (4.0-10.5) x10^3/uL RBC (4.1-5.6) x10^6/uL Hgb (12.5-18.0) g/dL Hct (42-50) % MCV (78-100) fL MCH (26-32) pg MCHC (32-36) g/dL RDW (11.5-14.0) % Plt Count (150-450) x10^3/uL MPV (7.5-11.0) fL Gran % (36.0-66.0) % Immature Gran % (Auto) (0.00-0.4) % Nucleat RBC Rel Count (0.00-0.1) % Eos # (Auto) (0-0.5) x10^3/uL Immature Gran # (Auto) (0.00-0.03) x10^3u/L Absolute Lymphs (auto) (1.0-4.6) x10^3/uL Absolute Monos (auto) (0.0-1.3) x10^3/uL Absolute Nucleated RBC (0.00-0.01) x10^3u/L Lymphocytes % (24.0-44.0) % Monocytes % (0.0-12.0) % Eosinophils % (0.00-5.0) % Basophils % (0.0-0.4) % Absolute Granulocytes (1.4-6.9) x10^3/uL Basophils # (0-0.4) x10^3/uL PT (9.4-12.5) SECONDS INR (0.8-3.0) APTT (25.1-36.5) SECONDS D-Dimer (0.0-0.50) mg/L Sodium (137-145) mmol/L Potassium (3.5-5.1) mmol/L Chloride (98-107) mmol/L Carbon Dioxide (22-30) mmol/L Anion Gap (5-15) MEQ/L BUN (9-20) mg/dL Creatinine (0.66-1.25) mg/dL Estimated GFR ML/MIN Glucose (74-106) mg/dL Calcium (8.4-10.2) mg/dL Total Bilirubin (0.2-1.3) mg/dL AST (17-59) U/L ALT (0-50) U/L Alkaline Phosphatase (38-126) U/L Troponin I (0.000-0.034) ng/mL Serum Total Protein (6.3-8.2) g/dL Albumin (3.5-5.0) g/dL Urine Color (Yellow) Urine Appearance (Clear) Urine pH (4.6-8.0) Ur Specific [place] (1.005-1.030) Urine Protein (Negative) Urine Glucose (UA) (Negative) mg/dL Urine Ketones (Negative) Urine Blood (Negative) Urine Nitrite (Negative) Urine Bilirubin (Negative) Urine Urobilinogen (0.2) mg/dL Ur Leukocyte Esterase (Negative) U Hyaline Cast (Auto) (0-2) /LPF Urine Microscopic RBC (0-5) /HPF Urine Microscopic WBC (0-5) /HPF Ur Epithelial Cells (None Seen) /HPF Urine Bacteria (None Seen) /HPF Urine Culture Reflexed (NO) Urine Opiates Level NEGATIVE (NEGATIVE) Ur Methadone NEGATIVE (NEGATIVE) Urine Barbiturates NEGATIVE (NEGATIVE) Ur Phencyclidine (PCP) NEGATIVE (NEGATIVE) Urine Amphetamine NEGATIVE (NEGATIVE) U Benzodiazepine Level NEGATIVE (NEGATIVE) Urine Cocaine NEGATIVE (NEGATIVE) Urine Marijuana (THC) NEGATIVE (NEGATIVE) Ethyl Alcohol < 10 (0-10) mg/dL Influenza Type A Ag NEGATIVE (NEGATIVE) Influenza Type B Ag NEGATIVE (NEGATIVE) RSV (PCR) NEGATIVE (Negative) SARS-CoV-2 (PCR) NEGATIVE (NEGATIVE) 10/23/22 10/23/22 10/23/22 Range/Units 13:15 13:15 13:15 WBC (4.0-10.5) x10^3/uL RBC (4.1-5.6) x10^6/uL Hgb (12.5-18.0) g/dL Hct (42-50) % MCV (78-100) fL MCH (26-32) pg MCHC (32-36) g/dL RDW (11.5-14.0) % Plt Count (150-450) x10^3/uL MPV (7.5-11.0) fL Gran % (36.0-66.0) % Immature Gran % (Auto) (0.00-0.4) % Nucleat RBC Rel Count (0.00-0.1) % Eos # (Auto) (0-0.5) x10^3/uL Immature Gran # (Auto) (0.00-0.03) x10^3u/L Absolute Lymphs (auto) (1.0-4.6) x10^3/uL Absolute Monos (auto) (0.0-1.3) x10^3/uL Absolute Nucleated RBC (0.00-0.01) x10^3u/L Lymphocytes % (24.0-44.0) % Monocytes % (0.0-12.0) % Eosinophils % (0.00-5.0) % Basophils % (0.0-0.4) % Absolute Granulocytes (1.4-6.9) x10^3/uL Basophils # (0-0.4) x10^3/uL PT 10.5 (9.4-12.5) SECONDS INR 0.99 (0.8-3.0) APTT 26.8 (25.1-36.5) SECONDS D-Dimer (0.0-0.50) mg/L Sodium 139 (137-145) mmol/L Potassium 4.1 (3.5-5.1) mmol/L Chloride 108 H (98-107) mmol/L Carbon Dioxide 31 H (22-30) mmol/L Anion Gap 4.3 L (5-15) MEQ/L BUN 20 (9-20) mg/dL Creatinine 1.02 (0.66-1.25) mg/dL Estimated GFR > 60.0 ML/MIN Glucose 158 H (74-106) mg/dL Calcium 8.4 (8.4-10.2) mg/dL Total Bilirubin 0.30 (0.2-1.3) mg/dL AST 21 (17-59) U/L ALT 17 (0-50) U/L Alkaline Phosphatase 109 (38-126) U/L Troponin I 0.066 H* (0.000-0.034) ng/mL Serum Total Protein 5.5 L (6.3-8.2) g/dL Albumin 2.9 L (3.5-5.0) g/dL Urine Color (Yellow) Urine Appearance (Clear) Urine pH (4.6-8.0) Ur Specific [place] (1.005-1.030) Urine Protein (Negative) Urine Glucose (UA) (Negative) mg/dL Urine Ketones (Negative) Urine Blood (Negative) Urine Nitrite (Negative) Urine Bilirubin (Negative) Urine Urobilinogen (0.2) mg/dL Ur Leukocyte Esterase (Negative) U Hyaline Cast (Auto) (0-2) /LPF Urine Microscopic RBC (0-5) /HPF Urine Microscopic WBC (0-5) /HPF Ur Epithelial Cells (None Seen) /HPF Urine Bacteria (None Seen) /HPF Urine Culture Reflexed (NO) Urine Opiates Level (NEGATIVE) Ur Methadone (NEGATIVE) Urine Barbiturates (NEGATIVE) Ur Phencyclidine (PCP) (NEGATIVE) Urine Amphetamine (NEGATIVE) U Benzodiazepine Level (NEGATIVE) Urine Cocaine (NEGATIVE) Urine Marijuana (THC) (NEGATIVE) Ethyl Alcohol (0-10) mg/dL Influenza Type A Ag (NEGATIVE) Influenza Type B Ag (NEGATIVE) RSV (PCR) (Negative) SARS-CoV-2 (PCR) (NEGATIVE) 10/23/22 Range/Units 13:15 WBC 7.0 (4.0-10.5) x10^3/uL RBC 3.68 L (4.1-5.6) x10^6/uL Hgb 10.5 L (12.5-18.0) g/dL Hct 34.2 L (42-50) % MCV 92.9 (78-100) fL MCH 28.5 (26-32) pg MCHC 30.7 L (32-36) g/dL RDW 14.7 H (11.5-14.0) % Plt Count 182 (150-450) x10^3/uL MPV 11.8 H (7.5-11.0) fL Gran % 81.8 H (36.0-66.0) % Immature Gran % (Auto) 0.1 (0.00-0.4) % Nucleat RBC Rel Count 0.0 (0.00-0.1) % Eos # (Auto) 0.04 (0-0.5) x10^3/uL Immature Gran # (Auto) 0.01 (0.00-0.03) x10^3u/L Absolute Lymphs (auto) 0.82 L (1.0-4.6) x10^3/uL Absolute Monos (auto) 0.40 (0.0-1.3) x10^3/uL Absolute Nucleated RBC 0.00 (0.00-0.01) x10^3u/L Lymphocytes % 11.7 L (24.0-44.0) % Monocytes % 5.7 (0.0-12.0) % Eosinophils % 0.6 (0.00-5.0) % Basophils % 0.1 (0.0-0.4) % Absolute Granulocytes 5.70 (1.4-6.9) x10^3/uL Basophils # 0.01 (0-0.4) x10^3/uL PT (9.4-12.5) SECONDS INR (0.8-3.0) APTT (25.1-36.5) SECONDS D-Dimer (0.0-0.50) mg/L Sodium (137-145) mmol/L Potassium (3.5-5.1) mmol/L Chloride (98-107) mmol/L Carbon Dioxide (22-30) mmol/L Anion Gap (5-15) MEQ/L BUN (9-20) mg/dL Creatinine (0.66-1.25) mg/dL Estimated GFR ML/MIN Glucose (74-106) mg/dL Calcium (8.4-10.2) mg/dL Total Bilirubin (0.2-1.3) mg/dL AST (17-59) U/L ALT (0-50) U/L Alkaline Phosphatase (38-126) U/L Troponin I (0.000-0.034) ng/mL Serum Total Protein (6.3-8.2) g/dL Albumin (3.5-5.0) g/dL Urine Color (Yellow) Urine Appearance (Clear) Urine pH (4.6-8.0) Ur Specific [place] (1.005-1.030) Urine Protein (Negative) Urine Glucose (UA) (Negative) mg/dL Urine Ketones (Negative) Urine Blood (Negative) Urine Nitrite (Negative) Urine Bilirubin (Negative) Urine Urobilinogen (0.2) mg/dL Ur Leukocyte Esterase (Negative) U Hyaline Cast (Auto) (0-2) /LPF Urine Microscopic RBC (0-5) /HPF Urine Microscopic WBC (0-5) /HPF Ur Epithelial Cells (None Seen) /HPF Urine Bacteria (None Seen) /HPF Urine Culture Reflexed (NO) Urine Opiates Level (NEGATIVE) Ur Methadone (NEGATIVE) Urine Barbiturates (NEGATIVE) Ur Phencyclidine (PCP) (NEGATIVE) Urine Amphetamine (NEGATIVE) U Benzodiazepine Level (NEGATIVE) Urine Cocaine (NEGATIVE) Urine Marijuana (THC) (NEGATIVE) Ethyl Alcohol (0-10) mg/dL Influenza Type A Ag (NEGATIVE) Influenza Type B Ag (NEGATIVE) RSV (PCR) (Negative) SARS-CoV-2 (PCR) (NEGATIVE) - Progress Progress Note: 10/23/22 19:42 Pt obs admit due to poor functional status/pain control/serial troponins Obs per Dr. Restrepo Counseled pt/family regarding: lab results, diagnosis, rad results - Departure Departure Disposition: Observation Clinical Impression: Multiple contusions, Minor head injury, Repeated falls, Elevated troponin Condition: Stable Critical Care Time: No Referrals: NICCI CLAROS MD [Primary Care Provider] - Follow up/PCP as directed
--- NOTE | 2022-10-23 14:52 | XRAY ---
Indication: Pain following fall. Comparison: December 22, 2019 3 view left knee unchanged again demonstrating mild medial degenerative joint space narrowing with faint chondrocalcinosis. Stable mild scattered vascular calcifications. No new/acute abnormalities.
[2022-10-23 16:49] LABS: Bacteria None Seen /HPF (None Seen); Bilirubin Negative (Negative); Blood Small (Negative); Epithelial Cells None Seen /HPF (None Seen); Glucose, Urine 100 mg/dL (Negative); Ketones Negative (Negative); Leukocyte Esterase Negative (Negative); Nitrite Negative (Negative); Protein,Urine Dip >=1000 (Negative); Specific Gravity 1.015 (1.005-1.030); Urobilinogen 0.2 mg/dL (0.2); WBC 0-2 /HPF (0-5)
[2022-10-23 16:51] LABS: ADD URINE CULTURE? NO (NO); Appearance Clear (Clear)
[2022-10-23] MEDS ORDERED: HUMALOG SQ PRN (19:38)
[2022-10-23] MEDS ORDERED: Zofran 4 MG/2 ML VIAL IV PRN (19:38)
[2022-10-23] MEDS ORDERED: HOLD METFORMIN PRODUCTS FOR 48 HOURS MC SCH (19:50)
--- NOTE | 2022-10-23 21:08 | XRAY ---
Indication: Elevated d-dimer. Status post fall. Pulmonary embolus. Multiple contiguous axial images obtained through the chest using 100 cc Isovue 370 contrast and PE protocol. Comparison: CT chest without contrast earlier in the day. Good opacification of the pulmonary arteries to include the lobar and segmental branches. No pulmonary embolus. Heart not enlarged again with CABG. Aorta remains minimally arteriosclerotic without aneurysm/dissection. Stable small subcarinal and right infrahilar calcified nodes. No pathologic mediastinal/hilar lymphadenopathy. Lungs again demonstrates tiny right effusion, bilateral dependent atelectasis, scattered fibrosis/scarring, and right lower lobe calcified granulomas. Impression: Negative pulmonary embolus. Remaining chest unchanged compared to exam earlier in the day. No new cardiopulmonary abnormalities.
[2022-10-23] MEDS: Sodium Chloride 0.9% 1000 ML 1,000 ML IV SCH (23:25)
[2022-10-24] MEDS ORDERED: Cozaar 50 MG PO ONE (00:15)
[2022-10-24 06:30] LABS: Basophil (Absolute #) 0 x10^3/uL (0-0.4); Eosinophil % 1.2 % (0.00-5.0); Eosinophil (Absolute #) 0.07 x10^3/uL (0-0.5); Hematocrit 33.2 % (42-50); Hemoglobin 10.4 g/dL (12.5-18.0); Lymphocyte (Absolute #) 0.71 x10^3/uL (1.0-4.6); Lymphocytes % 12.4 % (24.0-44.0); Mean Corpuscular Hemoglobin 28.5 pg (26-32); Mean Corpuscular Hgb Concent. 31.3 g/dL (32-36); Mean Platelet Volume 12.5 fL (7.5-11.0); Monocyte (Absolute #) 0.33 x10^3/uL (0.0-1.3); Monocytes % 5.8 % (0.0-12.0); Neutrophil % 80.4 % (36.0-66.0); Platelet Count 184 x10^3/uL (150-450); Red Blood Count 3.65 x10^6/uL (4.1-5.6); White Blood Count 5.7 x10^3/uL (4.0-10.5)
[2022-10-24] MEDS: TYLENOL EXTRA STRENGTH 500 MG PO PRN ×2 (06:32→21:53)
[2022-10-24 06:52] LABS: ALBUMIN 2.6 g/dL (3.5-5.0); ALKALINE PHOSPHATASE 108 U/L (38-126); ANION GAP 5.2 MEQ/L (5-15); BLOOD UREA NITROGEN 18 mg/dL (9-20); CHLORIDE 108 mmol/L (98-107); Calcium 8.4 mg/dL (8.4-10.2); Carbon Dioxide 28 mmol/L (22-30); Creatinine 1 1.04 mg/dL (0.66-1.25); EST GLOMERULAR FILTRATION RATE > 60.0 ML/MIN; Glucose 133 mg/dL (74-106); Potassium 4.1 mmol/L (3.5-5.1); SGOT/AST 17 U/L (17-59); SGPT/ALT 14 U/L (0-50); SODIUM 137 mmol/L (137-145); Total Protein 4.9 g/dL (6.3-8.2)
[2022-10-24] MEDS: PROTONIX 40 MG IV IV SCH (09:05)
[2022-10-24] MEDS: Sodium Chloride 0.9% 1000 ML 1,000 ML IV SCH (09:08)
--- NOTE | 2022-10-24 14:49 | PCM.HP ---
History of Present Illness - Chief Complaint Chief Complaint: Syncope History of Present Illness: is a 67 year old male patient of Dr Byrd who was brought in ER by EMS after falling x3 today. Pt is a very poor historian but states he fell in the house when letting his dogs out and " I just dropped" ? LOC,was dazed for a few seconds c/o ELIAS/cervical pain/anterior chest pain/lumbar pain/B hip pain/R knee pain/R calf pain. No C-collar on arrival. PMHx includes Reason for Fall: unknown Associated Symptoms (Fall): back pain, chest pain, extremity injury, headache, neck pain, No abdominal pain, No dizziness, No lightheadedness, No muscle spasms, No nausea, No ringing in ears, No seizures, No shortness of breath, No slurred speech, No vomiting, No vision changes . Medications & Allergies Home Medications: Home Medication List Metformin HCl [Glucophage] 1,000 mg PO BID 01/22/17 [History Confirmed 10/23/22] Losartan Potassium 50 mg [Cozaar 50 MG] 50 mg PO DAILY 05/26/19 [History Confirmed 10/23/22] Furosemide 40 mg [Lasix 40 MG] 1 tab PO DAILY 07/18/19 [History Confirmed 10/23/22] Ezetimibe 10 mg PO DAILY 04/26/20 [History Confirmed 10/23/22] Clopidogrel Bisulfate [PLAVIX Tablet] 75 mg PO DAILY 02/10/21 [History Confirmed 10/23/22] Hydrochlorothiazide 25 mg [hydroDIURIL 25 MG] 25 mg PO DAILY 02/10/21 [History Confirmed 10/23/22] carvediloL [Carvedilol] 25 mg PO DAILY 02/10/21 [History Confirmed 10/23/22] Allopurinol 100 mg [Zyloprim 100 mg] 100 mg PO BID 06/06/21 [History Confirmed 10/23/22] Aspirin EC 81 mg [Ecotrin 81 mg] 1 tab PO DAILY 10/23/22 [History Confirmed 10/23/22] Allergies/Adverse Reactions: Allergies Allergy/AdvReac Type Severity Reaction Status Date / Time gabapentin AdvReac Verified 10/23/22 12:18 - Past Medical History Past Medical History: Yes Neurological History: No Pertinent History ENT History: No Pertinent History Cardiac History: Angina, Coronary Artery Disease, High Cholesterol, Hypertension, Myocardial Infarction ([place]) Respiratory History: COPD Endocrine Medical History: Diabetes Type II Musculoskelatal History: Osteoarthritis GI Medical History: No Pertinent History History: No Pertinent History Pyscho-Social History: No Pertinent History Male Reproductive Disorders: No Pertinent History Comment: fractured ribs, anemia, gout - Past Surgical History Past Surgical History: Yes Neuro Surgical History: No Pertinent History Cardiac History: CABG, Other Respiratory Surgery: Chest Surgery GI Surgical History: No Pertinent History Genitourinary Surgical Hx: No Pertinent History Musculskeletal Surgical Hx: Orthopedic Surgery Male Surgical History: No Pertinent History Other Surgical History: umbilical, triple bypass, L shoulder - Social History Smoking Status: Current every day smoker How long have you smoked: 43 years Exposure to second hand smoke: Yes Alcohol: None Drug Use: none - Physical Exam Vital Signs: Vital Signs - 24 hr Temp Pulse Resp BP BP Pulse Ox 10/24/22 11:57 98.7 F 76 18 162/74 90 L 10/24/22 07:48 98.4 F 75 18 177/84 90 L 10/24/22 03:35 98.7 F 75 24 166/80 88 L 10/23/22 22:46 98.5 F 118 H 20 176/89 90 L 10/23/22 20:38 88 170/94 94 L 10/23/22 19:56 94 L 10/23/22 18:06 97.2 F 75 20 189/97 98 10/23/22 17:26 97.2 F 74 20 168/100 98 10/23/22 17:00 73 168/100 94 L 10/23/22 16:01 74 20 98 10/23/22 15:08 97.2 F 80 20 158/94 98 Results - Labs Lab/Micro Results: Lab Results-Last 24 Hours 10/23/22 10/23/22 10/23/22 Range/Units 14:33 16:09 17:05 WBC (4.0-10.5) x10^3/uL RBC (4.1-5.6) x10^6/uL Hgb (12.5-18.0) g/dL Hct (42-50) % MCV (78-100) fL MCH (26-32) pg MCHC (32-36) g/dL RDW (11.5-14.0) % Plt Count (150-450) x10^3/uL MPV (7.5-11.0) fL Gran % (36.0-66.0) % Immature Gran % (Auto) (0.00-0.4) % Nucleat RBC Rel Count (0.00-0.1) % Eos # (Auto) (0-0.5) x10^3/uL Immature Gran # (Auto) (0.00-0.03) x10^3u/L Absolute Lymphs (auto) (1.0-4.6) x10^3/uL Absolute Monos (auto) (0.0-1.3) x10^3/uL Absolute Nucleated RBC (0.00-0.01) x10^3u/L Lymphocytes % (24.0-44.0) % Monocytes % (0.0-12.0) % Eosinophils % (0.00-5.0) % Basophils % (0.0-0.4) % Absolute Granulocytes (1.4-6.9) x10^3/uL Basophils # (0-0.4) x10^3/uL D-Dimer 0.87 H* (0.0-0.50) mg/L Sodium (137-145) mmol/L Potassium (3.5-5.1) mmol/L Chloride (98-107) mmol/L Carbon Dioxide (22-30) mmol/L Anion Gap (5-15) MEQ/L BUN (9-20) mg/dL Creatinine (0.66-1.25) mg/dL Estimated GFR ML/MIN Glucose (74-106) mg/dL POC Glucometer (74 to 106) mg/dL Calcium (8.4-10.2) mg/dL Total Bilirubin (0.2-1.3) mg/dL AST (17-59) U/L ALT (0-50) U/L Alkaline Phosphatase (38-126) U/L Troponin I 0.069 H* (0.000-0.034) ng/mL Serum Total Protein (6.3-8.2) g/dL Albumin (3.5-5.0) g/dL Urine Color Yellow (Yellow) Urine Appearance Clear (Clear) Urine pH 7.0 (4.6-8.0) Ur Specific [place] 1.015 (1.005-1.030) Urine Protein >=1000 A (Negative) Urine Glucose (UA) 100 A (Negative) mg/dL Urine Ketones Negative (Negative) Urine Blood Small A (Negative) Urine Nitrite Negative (Negative) Urine Bilirubin Negative (Negative) Urine Urobilinogen 0.2 (0.2) mg/dL Ur Leukocyte Esterase Negative (Negative) U Hyaline Cast (Auto) 3-5 A (0-2) /LPF Urine Microscopic RBC 3-5 (0-5) /HPF Urine Microscopic WBC 0-2 (0-5) /HPF Ur Epithelial Cells None Seen (None Seen) /HPF Urine Bacteria None Seen (None Seen) /HPF Urine Culture Reflexed NO (NO) 10/23/22 10/24/22 10/24/22 Range/Units 20:52 05:20 05:20 WBC 5.7 (4.0-10.5) x10^3/uL RBC 3.65 L (4.1-5.6) x10^6/uL Hgb 10.4 L (12.5-18.0) g/dL Hct 33.2 L (42-50) % MCV 91.0 (78-100) fL MCH 28.5 (26-32) pg MCHC 31.3 L (32-36) g/dL RDW 15.0 H (11.5-14.0) % Plt Count 184 (150-450) x10^3/uL MPV 12.5 H (7.5-11.0) fL Gran % 80.4 H (36.0-66.0) % Immature Gran % (Auto) 0.2 (0.00-0.4) % Nucleat RBC Rel Count 0.0 (0.00-0.1) % Eos # (Auto) 0.07 (0-0.5) x10^3/uL Immature Gran # (Auto) 0.01 (0.00-0.03) x10^3u/L Absolute Lymphs (auto) 0.71 L (1.0-4.6) x10^3/uL Absolute Monos (auto) 0.33 (0.0-1.3) x10^3/uL Absolute Nucleated RBC 0.00 (0.00-0.01) x10^3u/L Lymphocytes % 12.4 L (24.0-44.0) % Monocytes % 5.8 (0.0-12.0) % Eosinophils % 1.2 (0.00-5.0) % Basophils % 0.0 (0.0-0.4) % Absolute Granulocytes 4.60 (1.4-6.9) x10^3/uL Basophils # 0 (0-0.4) x10^3/uL D-Dimer (0.0-0.50) mg/L Sodium 137 (137-145) mmol/L Potassium 4.1 (3.5-5.1) mmol/L Chloride 108 H (98-107) mmol/L Carbon Dioxide 28 (22-30) mmol/L Anion Gap 5.2 (5-15) MEQ/L BUN 18 (9-20) mg/dL Creatinine 1.04 (0.66-1.25) mg/dL Estimated GFR > 60.0 ML/MIN Glucose 133 H (74-106) mg/dL POC Glucometer (74 to 106) mg/dL Calcium 8.4 (8.4-10.2) mg/dL Total Bilirubin 0.40 (0.2-1.3) mg/dL AST 17 (17-59) U/L ALT 14 (0-50) U/L Alkaline Phosphatase 108 (38-126) U/L Troponin I 0.069 H* (0.000-0.034) ng/mL Serum Total Protein 4.9 L (6.3-8.2) g/dL Albumin 2.6 L (3.5-5.0) g/dL Urine Color (Yellow) Urine Appearance (Clear) Urine pH (4.6-8.0) Ur Specific [place] (1.005-1.030) Urine Protein (Negative) Urine Glucose (UA) (Negative) mg/dL Urine Ketones (Negative) Urine Blood (Negative) Urine Nitrite (Negative) Urine Bilirubin (Negative) Urine Urobilinogen (0.2) mg/dL Ur Leukocyte Esterase (Negative) U Hyaline Cast (Auto) (0-2) /LPF Urine Microscopic RBC (0-5) /HPF Urine Microscopic WBC (0-5) /HPF Ur Epithelial Cells (None Seen) /HPF Urine Bacteria (None Seen) /HPF Urine Culture Reflexed (NO) 10/24/22 10/24/22 Range/Units 07:16 11:29 WBC (4.0-10.5) x10^3/uL RBC (4.1-5.6) x10^6/uL Hgb (12.5-18.0) g/dL Hct (42-50) % MCV (78-100) fL MCH (26-32) pg MCHC (32-36) g/dL RDW (11.5-14.0) % Plt Count (150-450) x10^3/uL MPV (7.5-11.0) fL Gran % (36.0-66.0) % Immature Gran % (Auto) (0.00-0.4) % Nucleat RBC Rel Count (0.00-0.1) % Eos # (Auto) (0-0.5) x10^3/uL Immature Gran # (Auto) (0.00-0.03) x10^3u/L Absolute Lymphs (auto) (1.0-4.6) x10^3/uL Absolute Monos (auto) (0.0-1.3) x10^3/uL Absolute Nucleated RBC (0.00-0.01) x10^3u/L Lymphocytes % (24.0-44.0) % Monocytes % (0.0-12.0) % Eosinophils % (0.00-5.0) % Basophils % (0.0-0.4) % Absolute Granulocytes (1.4-6.9) x10^3/uL Basophils # (0-0.4) x10^3/uL D-Dimer (0.0-0.50) mg/L Sodium (137-145) mmol/L Potassium (3.5-5.1) mmol/L Chloride (98-107) mmol/L Carbon Dioxide (22-30) mmol/L Anion Gap (5-15) MEQ/L BUN (9-20) mg/dL Creatinine (0.66-1.25) mg/dL Estimated GFR ML/MIN Glucose (74-106) mg/dL POC Glucometer 113 H 191 H (74 to 106) mg/dL Calcium (8.4-10.2) mg/dL Total Bilirubin (0.2-1.3) mg/dL AST (17-59) U/L ALT (0-50) U/L Alkaline Phosphatase (38-126) U/L Troponin I (0.000-0.034) ng/mL Serum Total Protein (6.3-8.2) g/dL Albumin (3.5-5.0) g/dL Urine Color (Yellow) Urine Appearance (Clear) Urine pH (4.6-8.0) Ur Specific [place] (1.005-1.030) Urine Protein (Negative) Urine Glucose (UA) (Negative) mg/dL Urine Ketones (Negative) Urine Blood (Negative) Urine Nitrite (Negative) Urine Bilirubin (Negative) Urine Urobilinogen (0.2) mg/dL Ur Leukocyte Esterase (Negative) U Hyaline Cast (Auto) (0-2) /LPF Urine Microscopic RBC (0-5) /HPF Urine Microscopic WBC (0-5) /HPF Ur Epithelial Cells (None Seen) /HPF Urine Bacteria (None Seen) /HPF Urine Culture Reflexed (NO) Accuchecks Date 10/24/22 Date 10/24/22 Time 11:29 Time 07:16 - Radiology Impressions Radiology Exams & Impressions: Radiology Procedures Category Date Time Status ABDOMEN AND PELVIS W/0 CONTRAS [CT] Stat Exams 10/23/22 12:43 Completed CERVICAL SPINE WO CONTRAST [CT] Stat Exams 10/23/22 12:41 Completed CHEST WITH CONTRAST [CT] Stat Exams 10/23/22 17:55 Completed CHEST WITHOUT CONTRAST [CT] Stat Exams 10/23/22 12:43 Completed HEAD WITHOUT CONTRAST [CT] Stat Exams 10/23/22 12:41 Completed KNEE (3 VIEWS) Stat Exams 10/23/22 14:29 Completed
[2022-10-24] MEDS: Zetia 10 MG PO SCH (16:33)
[2022-10-24] MEDS: COREG 12.5 MG PO SCH (16:33)
[2022-10-24] MEDS: Lasix 40 MG PO SCH (16:33)
[2022-10-24] MEDS: ECOTRIN 81 MG PO SCH (16:33)
[2022-10-24] MEDS: Cozaar 50 MG PO SCH (16:33)
[2022-10-24] MEDS: PLAVIX Tablet PO SCH (16:33)
[2022-10-24] MEDS: hydroDIURIL 25 MG PO SCH (16:33)
[2022-10-24] MEDS: ZYLOPRIM 100 MG PO SCH (21:17)
[2022-10-24] MEDS ORDERED: NON-FORMULARY ITEM (Metformin Hcl [Glucophage] 1,000 MG Tablet) PO SCH (22:00)
[2022-10-25] MEDS: PLAVIX Tablet PO SCH (09:01)
[2022-10-25] MEDS: PROTONIX 40 MG IV IV SCH (09:01)
[2022-10-25] MEDS: Cozaar 50 MG PO SCH (09:01)
[2022-10-25] MEDS: COREG 12.5 MG PO SCH ×2 (09:01→21:36)
[2022-10-25] MEDS: Lasix 40 MG PO SCH (09:01)
[2022-10-25] MEDS: ZYLOPRIM 100 MG PO SCH ×2 (09:01→21:33)
[2022-10-25] MEDS: ECOTRIN 81 MG PO SCH (09:01)
[2022-10-25] MEDS: Zetia 10 MG PO SCH (09:02)
[2022-10-25] MEDS: hydroDIURIL 25 MG PO SCH (09:02)
[2022-10-25] MEDS ORDERED: NON-FORMULARY ITEM (Carvedilol [Carvedilol] 25 MG Tablet) PO SCH (10:00)
[2022-10-25] MEDS: TYLENOL EXTRA STRENGTH 500 MG PO PRN (16:40)
[2022-10-25] MEDS: NORCO 5/325 MG PO PRN (20:05)
--- NOTE | 2022-10-26 | PCM.NOTE ---
Date and Time: 10/25/222338 Subjective Assessment: Patient still unsteady on his feet. C/O right calf pain,chronic but worse. Dr Lay has bee following ptn. OBJECTIVE DATA Vital Signs: Vital Signs - 24 hr Temp Pulse Resp BP BP Pulse Ox 10/25/22 20:00 97.3 F 71 20 132/70 96 10/25/22 16:00 97.5 F 68 16 158/74 92 L 10/25/22 12:00 97.4 F 73 18 190/94 93 L 10/25/22 08:00 97.0 F 59 L 16 168/71 90 L 10/25/22 04:00 97.3 F 61 21 144/67 91 L 10/24/22 23:54 98.2 F 68 20 158/82 91 L Pain Assessment - Last Documented Pain Intensity 8 Pain Scale Used 0-10 Pain Scale Intake and Output: Intake & Output 10/23/22 10/24/22 10/25/22 10/26/22 11:59 11:59 11:59 11:59 Intake Total 806 1980 1320 Output Total 1000 1800 1475 Balance -194 180 -155 Weight 109.5 kg Lab Results: Lab Results-Last 24 Hours 10/25/22 10/25/22 10/25/22 Range/Units 07:37 11:40 16:27 POC Glucometer 130 H 229 H 191 H (74 to 106) mg/dL 10/25/22 Range/Units 21:20 POC Glucometer 204 H (74 to 106) mg/dL
[2022-10-26] MEDS ORDERED: ENOXAPARIN SODIUM SQ SCH (00:15)
[2022-10-26] MEDS: NORCO 5/325 MG PO PRN (00:19)
[2022-10-26 05:39] LABS: Absolute Neutrophil Ct (ANC) 3.18 x10^3/uL (1.4-6.9); Basophil (Absolute #) 0.01 x10^3/uL (0-0.4); Eosinophil % 2.4 % (0.00-5.0); Eosinophil (Absolute #) 0.11 x10^3/uL (0-0.5); Hemoglobin 9.5 g/dL (12.5-18.0); Lymphocyte (Absolute #) 0.91 x10^3/uL (1.0-4.6); Lymphocytes % 19.9 % (24.0-44.0); Mean Cell Volume 90.1 fL (78-100); Mean Corpuscular Hemoglobin 28.5 pg (26-32); Mean Corpuscular Hgb Concent. 31.7 g/dL (32-36); Mean Platelet Volume 12.2 fL (7.5-11.0); Monocyte (Absolute #) 0.36 x10^3/uL (0.0-1.3); Monocytes % 7.9 % (0.0-12.0); Neutrophil % 69.6 % (36.0-66.0); Platelet Count 154 x10^3/uL (150-450); Red Blood Count 3.33 x10^6/uL (4.1-5.6); Red Cell Distribution Width 14.6 % (11.5-14.0); White Blood Count 4.6 x10^3/uL (4.0-10.5)
[2022-10-26 06:38] LABS: ALBUMIN 2.6 g/dL (3.5-5.0); ANION GAP 5.6 MEQ/L (5-15); BILIRUBIN,TOTAL 0.2 mg/dL (0.2-1.3); Creatinine 1 1.29 mg/dL (0.66-1.25); EST GLOMERULAR FILTRATION RATE 59.2 ML/MIN; Potassium 3.7 mmol/L (3.5-5.1); Risk Ratio 6.6; TSH, 3RD Generation 11.9 mIU/L (0.47-4.68); Total Protein 5.1 g/dL (6.3-8.2)
[2022-10-26 07:56] VITALS: PULSE 65
[2022-10-26] MEDS ORDERED: Glucophage 500 MG PO SCH (08:00)
--- NOTE | 2022-10-26 08:21 | PCM.DS ---
Discharge Summary Date of Admission: 10/23/22 22:08 Admitting Physician: TAMI CUNHA DO Primary Care Provider: NICCI CLAROS Allergies Allergies gabapentin Adverse Reaction (Verified 10/23/22 12:18) "got kind of loopy" Hospital Summary - Hospital Course Hospital Course: patient admitted via ER after having multiple falls with minor injuries, he was admitted due to concern for his safety. he has a walker in his room and also has a cane, he is currently living in a camper and going through a divorce, states he has no transportation for outpatient services like PT and declines a home health referral at this time. - Vitals & Intake/Output Vital Signs: Vital Signs Temperature 97.7 F 10/26/22 07:51 Pulse Rate 65 10/26/22 07:51 Respiratory Rate 16 10/26/22 07:51 Blood Pressure 165/74 10/26/22 07:51 O2 Sat by Pulse Oximetry 95 10/26/22 07:51 Intake & Output: Intake & Output 10/23/22 10/24/22 10/25/22 10/26/22 11:59 11:59 11:59 11:59 Intake Total 806 1980 1920 Output Total 1000 1800 3025 Balance -194 180 -1105 Weight 109.5 kg - Lab Result Diagrams: 10/26/22 05:00 10/26/22 05:00 Lab Results-Last 24 Hrs: Lab Results-Last 24 Hours 10/25/22 10/25/22 10/25/22 Range/Units 11:40 16:27 21:20 WBC (4.0-10.5) x10^3/uL RBC (4.1-5.6) x10^6/uL Hgb (12.5-18.0) g/dL Hct (42-50) % MCV (78-100) fL MCH (26-32) pg MCHC (32-36) g/dL RDW (11.5-14.0) % Plt Count (150-450) x10^3/uL MPV (7.5-11.0) fL Gran % (36.0-66.0) % Immature Gran % (Auto) (0.00-0.4) % Nucleat RBC Rel Count (0.00-0.1) % Eos # (Auto) (0-0.5) x10^3/uL Immature Gran # (Auto) (0.00-0.03) x10^3u/L Absolute Lymphs (auto) (1.0-4.6) x10^3/uL Absolute Monos (auto) (0.0-1.3) x10^3/uL Absolute Nucleated RBC (0.00-0.01) x10^3u/L Lymphocytes % (24.0-44.0) % Monocytes % (0.0-12.0) % Eosinophils % (0.00-5.0) % Basophils % (0.0-0.4) % Absolute Granulocytes (1.4-6.9) x10^3/uL Basophils # (0-0.4) x10^3/uL Sodium (137-145) mmol/L Potassium (3.5-5.1) mmol/L Chloride (98-107) mmol/L Carbon Dioxide (22-30) mmol/L Anion Gap (5-15) MEQ/L BUN (9-20) mg/dL Creatinine (0.66-1.25) mg/dL Estimated GFR ML/MIN Glucose (74-106) mg/dL POC Glucometer 229 H 191 H 204 H (74 to 106) mg/dL Uric Acid (3.5-7.2) mg/dL Calcium (8.4-10.2) mg/dL Total Bilirubin (0.2-1.3) mg/dL AST (17-59) U/L ALT (0-50) U/L Alkaline Phosphatase (38-126) U/L Serum Total Protein (6.3-8.2) g/dL Albumin (3.5-5.0) g/dL Triglycerides (30-150) mg/dL Cholesterol (50-200) mg/dL LDL Cholesterol (30-100) mg/dL HDL Cholesterol (40-60) mg/dL Heart Disease Risk Ratio TSH 3rd Generation (0.47-4.68) mIU/L 10/26/22 10/26/22 10/26/22 Range/Units 05:00 05:00 07:51 WBC 4.6 (4.0-10.5) x10^3/uL RBC 3.33 L (4.1-5.6) x10^6/uL Hgb 9.5 L (12.5-18.0) g/dL Hct 30.0 L (42-50) % MCV 90.1 (78-100) fL MCH 28.5 (26-32) pg MCHC 31.7 L (32-36) g/dL RDW 14.6 H (11.5-14.0) % Plt Count 154 (150-450) x10^3/uL MPV 12.2 H (7.5-11.0) fL Gran % 69.6 H (36.0-66.0) % Immature Gran % (Auto) 0.0 (0.00-0.4) % Nucleat RBC Rel Count 0.0 (0.00-0.1) % Eos # (Auto) 0.11 (0-0.5) x10^3/uL Immature Gran # (Auto) 0.00 (0.00-0.03) x10^3u/L Absolute Lymphs (auto) 0.91 L (1.0-4.6) x10^3/uL Absolute Monos (auto) 0.36 (0.0-1.3) x10^3/uL Absolute Nucleated RBC 0.00 (0.00-0.01) x10^3u/L Lymphocytes % 19.9 L (24.0-44.0) % Monocytes % 7.9 (0.0-12.0) % Eosinophils % 2.4 (0.00-5.0) % Basophils % 0.2 (0.0-0.4) % Absolute Granulocytes 3.18 (1.4-6.9) x10^3/uL Basophils # 0.01 (0-0.4) x10^3/uL Sodium 138 (137-145) mmol/L Potassium 3.7 (3.5-5.1) mmol/L Chloride 105 (98-107) mmol/L Carbon Dioxide 31 H (22-30) mmol/L Anion Gap 5.6 (5-15) MEQ/L BUN 26 H (9-20) mg/dL Creatinine 1.29 H (0.66-1.25) mg/dL Estimated GFR 59.2 ML/MIN Glucose 170 H (74-106) mg/dL POC Glucometer 153 H (74 to 106) mg/dL Uric Acid 6.0 (3.5-7.2) mg/dL Calcium 8.0 L (8.4-10.2) mg/dL Total Bilirubin 0.20 (0.2-1.3) mg/dL AST 18 (17-59) U/L ALT 15 (0-50) U/L Alkaline Phosphatase 92 (38-126) U/L Serum Total Protein 5.1 L (6.3-8.2) g/dL Albumin 2.6 L (3.5-5.0) g/dL Triglycerides 147 (30-150) mg/dL Cholesterol 210 H (50-200) mg/dL LDL Cholesterol 126 H (30-100) mg/dL HDL Cholesterol 32 L (40-60) mg/dL Heart Disease Risk Ratio 6.6 TSH 3rd Generation 11.900 H (0.47-4.68) mIU/L Micro Results-Entire Visit: Accuchecks Date 10/26/22 Date 10/25/22 Date 10/25/22 Time 08:08 - Radiology Exams Ordered Rad Exams-Entire Visit: Radiology Procedures Category Date Time Status VENOUS UNILAT/LIMITED EXTREMIT [US] Urgent Exams 10/25/22 23:41 Ordered - Procedures and Test Procedures and Tests throughout Hospitalization: Therapy Orders & Screens 10/25/22 23:49 PT Eval & Treat ( Order) ONCE Reason for Eval:: unstable gait,lives in a camper,uses cane but not stable with cane Diagnosis: Syncope Discharge Exam General Appearance: no apparent distress Neurologic Exam: alert, oriented x 3, cooperative Respiratory Exam: normal breath sounds, lungs clear, No respiratory distress Cardiovascular Exam: regular rate/rhythm, normal heart sounds Gastrointestinal/Abdomen Exam: soft, No tenderness, No mass Skin Exam: normal color, warm, dry Final Diagnosis/Problem List - Final Discharge Diagnosis/Problem (1) Minor head injury Current Visit: Yes Status: Acute Assessment & Plan: patient has no focal neuro signs on exam, he is alert and oriented and competent to make his own decisions. he declines rehab stay, home health or outpatient PT referral Code(s): S09.90XA - UNSPECIFIED INJURY OF HEAD, INITIAL ENCOUNTER (2) Repeated falls Current Visit: Yes Status: Acute Code(s): R29.6 - REPEATED FALLS (3) CHF (congestive heart failure) Current Visit: No Status: Acute Onset Date: ~10/06/18 Code(s): I50.9 - HEART FAILURE, UNSPECIFIED (4) COPD (chronic obstructive pulmonary disease) with emphysema Current Visit: No Status: Acute Code(s): J43.9 - EMPHYSEMA, UNSPECIFIED (5) DM w/o complication type II Current Visit: No Status: Acute Code(s): E11.9 - TYPE 2 DIABETES MELLITUS WITHOUT COMPLICATIONS (6) Hypothyroidism Current Visit: Yes Status: Acute Assessment & Plan: new onset with TSH 11, start synthroid on discharge Code(s): E03.9 - HYPOTHYROIDISM, UNSPECIFIED - Discharge Disposition: Home, Self-Care Condition: Stable Prescriptions: New Hydrocodone/Acetaminophen [Hydrocodone-Acetamin 5-325 mg] 1 tab PO Q6HPRN PRN #20 tablet MDD 4 PRN Reason: Pain Levothyroxine Sodium 50 Mcg [Synthroid 50 Mcg] 50 mcg PO DAILY #30 tablet Continue Metformin HCl [Glucophage] 1,000 mg PO BID Losartan Potassium 50 mg [Cozaar 50 MG] 50 mg PO DAILY Furosemide 40 mg [Lasix 40 MG] 1 tab PO DAILY Ezetimibe 10 mg PO DAILY carvediloL [Carvedilol] 25 mg PO DAILY Hydrochlorothiazide 25 mg [hydroDIURIL 25 MG] 25 mg PO DAILY Clopidogrel Bisulfate [PLAVIX Tablet] 75 mg PO DAILY Allopurinol 100 mg [Zyloprim 100 mg] 100 mg PO BID Aspirin EC 81 mg [Ecotrin 81 mg] 1 tab PO DAILY Follow up with: NICCI CLAROS MD [Primary Care Provider] - 1 Week
[2022-10-26] MEDS: ZYLOPRIM 100 MG PO SCH (08:59)
[2022-10-26] MEDS: Zetia 10 MG PO SCH (08:59)
[2022-10-26] MEDS: COREG 12.5 MG PO SCH (09:00)
[2022-10-26] MEDS: PLAVIX Tablet PO SCH (09:01)
[2022-10-26] MEDS: Cozaar 50 MG PO SCH (09:01)
[2022-10-26] MEDS: Lasix 40 MG PO SCH (09:01)
[2022-10-26] MEDS: hydroDIURIL 25 MG PO SCH (09:01)
[2022-10-26] MEDS: PROTONIX 40 MG IV IV SCH (09:01)
--- NOTE | 2022-10-26 10:32 | XRAY ---
Indication: Pain and erythema. Two-dimensional sonogram and color Doppler imaging of the major venous vessels of the right leg performed. Comparison: None No thrombus seen in the examined deep venous vessels of the right leg including greater saphenous vein. Veins demonstrate normal compressibility. Venous waveforms are normal with and without augmentation. Impression: Right leg negative for DVT.
[2022-10-26 11:28] VITALS: BP 153/68; O2SAT 93
[2022-10-27] MEDS ORDERED: ENOXAPARIN SODIUM SQ SCH (10:00)
== END 2022-10-26 13:50 | disposition home or self-care (01) ==
LOC: ED 12:15 → MED SURG 22:08
PROVIDERS: ADMIT Family Medicine; ATTEND Family Medicine
DX: S09.90XA Unspecified injury of head, initial encounter (principal); R29.6 Repeated falls; I11.0 Hypertensive heart disease with heart failure; I50.9 Heart failure, unspecified; J43.9 Emphysema, unspecified; E11.9 Type 2 diabetes mellitus without complications; E03.9 Hypothyroidism, unspecified; W19.XXXA Unspecified fall, initial encounter; I25.10 Atherosclerotic heart disease of native coronary artery without angina pectoris; R07.9 Chest pain, unspecified; M79.661 Pain in right lower leg; Z72.0 Tobacco use; Z79.899 Other long term (current) drug therapy; Z20.828 Contact with and (suspected) exposure to other viral communicable diseases
CPT/HCPCS: 0241U; 36000; 36415; 70450; 71250; 71260; 72125; 73562; 74176; 80053; 80061; 80307; 81001; 82947; 83036; 83721; 84146; 84443; 84484; 84550; 85025; 85379; 85610; 85730; 93005; 93268; 93971; 99284; J1650; J1817; A9270-GY; G0378; G0480

== ENCOUNTER 2022-10-27 14:21 | Observation (INO) | payer MEDICARE, OTHER ==
--- NOTE | 2022-10-27 14:35 | ERPHSYRPT ---
- History of Present Illness Time Seen by Provider: 10/27/22 14:34 Source: patient, EMS, old records Exam Limitations: no limitations Physician History: This is a 67-year-old white male patient of Dr. Byrd who was recently admitted into the hospital on 10/23/2022 because of frequent falls. On that day he fell and had some injuries that needed to be evaluated. However, the patient lives alone and there was concerned about his safety so they brought him into the hosp ital for observation and to obtain physical therapy and obtain a walker for him as an outpatient. He was discharged to home on 10/26/2022. He does not have transportation to outpatient physical therapy and declined home health services. Today, he states that in the morning he felt something was wrong. He was not thinking clearly. He then noticed he could not find the words to express himself. He believes that was approximately 11:45 in the morning when he was walking to his sister's house. Patient states he was not thinking clearly much earlier than that time. EMS service was contacted and they brought him into the emergency department. Patient is moving all extremities. There is no facial changes. He is having some aphasia. He has no complaints of a headache, chest pain, abdominal pain. He has no fevers. Additional history was obtained from EMS services and review of patient's old hospital records and review of recent radiographic study results. Patient is a diabetic and has a history of hypertension Timing/Duration: today Severity: mild Character of Deficits: impaired speech Deficits: no difficulties Baseline/Normal Cognition: alert oriented x 3 Current Cognition: alert oriented x 3 Baseline Gait: uses walker Associated Symptoms: other (Aphasia) Allergies/Adverse Reactions: gabapentin Adverse Reaction (Verified 10/23/22 12:18) "got kind of loopy" Home Medications: Metformin HCl [Glucophage] 1,000 mg PO BID 01/22/17 [History] Losartan Potassium 50 mg [Cozaar 50 MG] 50 mg PO DAILY 05/26/19 [History] Furosemide 40 mg [Lasix 40 MG] 1 tab PO DAILY 07/18/19 [History] Ezetimibe 10 mg PO DAILY 04/26/20 [History] Clopidogrel Bisulfate [PLAVIX Tablet] 75 mg PO DAILY 02/10/21 [History] Hydrochlorothiazide 25 mg [hydroDIURIL 25 MG] 25 mg PO DAILY 02/10/21 [History] carvediloL [Carvedilol] 25 mg PO DAILY 02/10/21 [History] Allopurinol 100 mg [Zyloprim 100 mg] 100 mg PO BID 06/06/21 [History] Aspirin EC 81 mg [Ecotrin 81 mg] 1 tab PO DAILY 10/23/22 [History] Hx Tetanus, Diphtheria Vaccination/Date Given: Yes Hx Influenza Vaccination/Date Given: Yes Hx Pneumococcal Vaccination/Date Given: Yes Travel Risk - International Travel Have you traveled outside of the country in past 3 weeks: No - Coronavirus Screening Are you exhibiting any of the following symptoms?: No Close contact with a COVID-19 positive Pt in past 14-21 Days: No - Vaccine Status Have you recieved a Covid-19 vaccination: No - Review of Systems Constitutional: No Symptoms Eyes: No Symptoms Ears, Nose, & Throat: No Symptoms Respiratory: No Symptoms Cardiac: No Symptoms Abdominal/Gastrointestinal: No Symptoms Genitourinary Symptoms: No Symptoms Musculoskeletal: No Symptoms Skin: No Symptoms Neurological: Speech Changes Psychological: No Symptoms Endocrine: No Symptoms Hematologic/Lymphatic: No Symptoms Immunological/Allergic: No Symptoms All Other Systems: Reviewed and Negative - Past Medical History Pertinent Past Medical History: Yes Neurological History: No Pertinent History ENT History: No Pertinent History Cardiac History: Angina, Coronary Artery Disease, High Cholesterol, Hypertension, Myocardial Infarction (PA) Respiratory History: COPD Endocrine Medical History: Diabetes Type II Musculoskeletal History: Osteoarthritis GI Medical History: No Pertinent History History: No Pertinent History Psycho-Social History: No Pertinent History Male Reproductive Disorders: No Pertinent History Other Medical History: fractured ribs, anemia, gout - Past Surgical History Past Surgical History: Yes Neuro Surgical History: No Pertinent History Cardiac: CABG, Other Respiratory: Chest Surgery Gastrointestinal: No Pertinent History Genitourinary: No Pertinent History Musculoskeletal: Orthopedic Surgery Male Surgical History: No Pertinent History Other Surgical History: umbilical, triple bypass, L shoulder - Social History Smoking Status: Current every day smoker How long have you smoked: 43 years Exposure to second hand smoke: Yes Drug Use: none Patient Lives Alone: Yes - Nursing Vital Signs Nursing Vital Signs: Initial Vital Signs Temperature 98.2 F 10/27/22 14:35 Pulse Rate 66 10/27/22 14:35 Respiratory Rate 20 01/17/23 14:35 Blood Pressure 150/73 10/27/22 14:35 O2 Sat by Pulse Oximetry 94 L 10/27/22 14:35 Pain Scale Pain Intensity 0 - [place] Coma Scale Best Eye Response ([place]): (4) open spontaneously Best Verbal Response ([place]): (5) oriented Best Motor Response ([place]): (6) obeys commands [place] Total: 15 - Physical Exam General Appearance: no apparent distress, alert, anxiety Eye Exam: bilateral eye: normal inspection, PERRL, EOMI Ears, Nose, Throat Exam: normal ENT inspection, TMs normal, moist mucous membranes Neck Exam: normal inspection, non-tender, supple, full range of motion Respiratory: normal breath sounds, lungs clear, airway intact, No chest tenderness, No respiratory distress Cardiovascular: regular rate/rhythm, normal heart sounds, normal peripheral pulses Gastrointestinal: soft, normal bowel sounds, No tenderness Rectal Exam: not done Back Exam: normal inspection, normal range of motion, No CVA tenderness, No vertebral tenderness Extremity Exam: normal inspection, normal range of motion, 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 Exam: normal hearing, PERRL, abnormal eye position, abnormal speech (Aphasic), tongue midline Coordination/Gait: normal finger to nose, normal gait, normal cerebellar function Motor/Sensory: no motor deficit, no sensory deficit, no pronator drift Skin Exam: normal color, warm, dry SpO2 Interpretation: normal O2 Delivery: Room Air - Course Nursing assessment & vital signs reviewed: Yes EKG Interpreted by Me: RATE (70), Sinus Rhythm (Sinus arrhythmia), NORMAL AXIS, Left Bundle Branch Block, Other (No acute ischemic changes on today's EKG.) Ordered Tests: Active Orders 24 hr Category Date Time Status Revenue Stamp Cutter STAT Care 10/27/22 14:35 Active Catheter-[place] Block STAT Care 10/27/22 15:07 Active EKG-ER Only STAT Care 10/27/22 14:35 Active IV Insertion STAT Care 10/27/22 14:35 Active NPO (ED) STAT Care 10/27/22 14:35 Active POCT Glucose Check STAT Care 10/27/22 14:35 Active Pulse Oximetry (ED) STAT Care 10/27/22 14:[address] ANGIOGRAPHY NECK [CT] Stat Exams 10/27/22 15:40 Taken HEAD WITHOUT CONTRAST [CT] Stat Exams 10/27/22 14:23 Completed MRI BRAIN W & W/O CONTRAST [MRI] Stat Exams 10/27/22 15:40 Completed CBC W DIFF Stat Lab 10/27/22 14:54 Completed CMP Stat Lab 10/27/22 14:54 Completed CULTURE,URINE Stat Lab 10/27/22 14:58 Received ETHYL ALCOHOL Stat Lab 10/27/22 14:54 Completed UA W/RFX UR CULTURE Stat Lab 10/27/22 14:58 Completed Urine Triage Profile Stat Lab 10/27/22 14:58 Completed Transfer Order Routine Transfer 10/27/22 Ordered Medication Summary Generic Name Dose Route Start Last Admin Trade Name Freq PRN Reason Stop Dose Admin Sodium Chloride 1,000 mls @ 100 mls/hr 10/27/22 14:45 10/27/22 14:43 Sodium Chloride 0.9% 1000 Ml IV 11/26/22 14:44 100 mls/hr .Q10H ZARIA Administration Lab/Rad Data: Laboratory Result Diagrams 10/27/22 14:54 10/27/22 14:54 Laboratory Results 10/27/22 10/27/22 10/27/22 Range/Units 16:50 15:01 14:58 WBC (4.0-10.5) x10^3/uL RBC (4.1-5.6) x10^6/uL Hgb (12.5-18.0) g/dL Hct (42-50) % MCV (78-100) fL MCH (26-32) pg MCHC (32-36) g/dL RDW (11.5-14.0) % Plt Count (150-450) x10^3/uL MPV (7.5-11.0) fL Gran % (36.0-66.0) % Immature Gran % (Auto) (0.00-0.4) % Nucleat RBC Rel Count (0.00-0.1) % Eos # (Auto) (0-0.5) x10^3/uL Immature Gran # (Auto) (0.00-0.03) x10^3u/L Absolute Lymphs (auto) (1.0-4.6) x10^3/uL Absolute Monos (auto) (0.0-1.3) x10^3/uL Absolute Nucleated RBC (0.00-0.01) x10^3u/L Lymphocytes % (24.0-44.0) % Monocytes % (0.0-12.0) % Eosinophils % (0.00-5.0) % Basophils % (0.0-0.4) % Absolute Granulocytes (1.4-6.9) x10^3/uL Basophils # (0-0.4) x10^3/uL Sodium (137-145) mmol/L Potassium (3.5-5.1) mmol/L Chloride (98-107) mmol/L Carbon Dioxide (22-30) mmol/L Anion Gap (5-15) MEQ/L BUN (9-20) mg/dL Creatinine (0.66-1.25) mg/dL Estimated GFR ML/MIN Glucose (74-106) mg/dL Calcium (8.4-10.2) mg/dL Total Bilirubin (0.2-1.3) mg/dL AST (17-59) U/L ALT (0-50) U/L Alkaline Phosphatase (38-126) U/L Serum Total Protein (6.3-8.2) g/dL Albumin (3.5-5.0) g/dL Urine Color (Yellow) Urine Appearance (Clear) Urine pH (4.6-8.0) Ur Specific [place] (1.005-1.030) Urine Protein (Negative) Urine Glucose (UA) (Negative) mg/dL Urine Ketones (Negative) Urine Blood (Negative) Urine Nitrite (Negative) Urine Bilirubin (Negative) Urine Urobilinogen (0.2) mg/dL Ur Leukocyte Esterase (Negative) U Hyaline Cast (Auto) (0-2) /LPF Urine Microscopic RBC (0-5) /HPF Urine Microscopic WBC (0-5) /HPF Ur Epithelial Cells (None Seen) /HPF Urine Bacteria (None Seen) /HPF Urine Culture Reflexed (NO) Urine Opiates Level POSITIVE (NEGATIVE) Ur Methadone NEGATIVE (NEGATIVE) Urine Barbiturates NEGATIVE (NEGATIVE) Ur Phencyclidine (PCP) NEGATIVE (NEGATIVE) Urine Amphetamine NEGATIVE (NEGATIVE) U Benzodiazepine Level NEGATIVE (NEGATIVE) Urine Cocaine NEGATIVE (NEGATIVE) Urine Marijuana (THC) NEGATIVE (NEGATIVE) Ethyl Alcohol (0-10) mg/dL Influenza Type A Ag NEGATIVE NEGATIVE (NEGATIVE) Influenza Type B Ag NEGATIVE NEGATIVE (NEGATIVE) RSV (PCR) NEGATIVE NEGATIVE (Negative) SARS-CoV-2 (PCR) NEGATIVE NEGATIVE (NEGATIVE) 10/27/22 10/27/22 10/27/22 Range/Units 14:58 14:54 14:54 WBC 5.4 (4.0-10.5) x10^3/uL RBC 3.52 L (4.1-5.6) x10^6/uL Hgb 10.0 L (12.5-18.0) g/dL Hct 32.4 L (42-50) % MCV 92.0 (78-100) fL MCH 28.4 (26-32) pg MCHC 30.9 L (32-36) g/dL RDW 14.6 H (11.5-14.0) % Plt Count 176 (150-450) x10^3/uL MPV 11.8 H (7.5-11.0) fL Gran % 73.8 H (36.0-66.0) % Immature Gran % (Auto) 0.2 (0.00-0.4) % Nucleat RBC Rel Count 0.0 (0.00-0.1) % Eos # (Auto) 0.11 (0-0.5) x10^3/uL Immature Gran # (Auto) 0.01 (0.00-0.03) x10^3u/L Absolute Lymphs (auto) 0.97 L (1.0-4.6) x10^3/uL Absolute Monos (auto) 0.33 (0.0-1.3) x10^3/uL Absolute Nucleated RBC 0.00 (0.00-0.01) x10^3u/L Lymphocytes % 17.9 L (24.0-44.0) % Monocytes % 6.1 (0.0-12.0) % Eosinophils % 2.0 (0.00-5.0) % Basophils % 0.0 (0.0-0.4) % Absolute Granulocytes 4.00 (1.4-6.9) x10^3/uL Basophils # 0 (0-0.4) x10^3/uL Sodium 139 (137-145) mmol/L Potassium 4.1 (3.5-5.1) mmol/L Chloride 105 (98-107) mmol/L Carbon Dioxide 30 (22-30) mmol/L Anion Gap 7.6 (5-15) MEQ/L BUN 28 H (9-20) mg/dL Creatinine 1.34 H (0.66-1.25) mg/dL Estimated GFR 56.7 ML/MIN Glucose 139 H (74-106) mg/dL Calcium 8.2 L (8.4-10.2) mg/dL Total Bilirubin 0.30 (0.2-1.3) mg/dL AST 26 (17-59) U/L ALT 24 (0-50) U/L Alkaline Phosphatase 112 (38-126) U/L Serum Total Protein 5.7 L (6.3-8.2) g/dL Albumin 3.1 L (3.5-5.0) g/dL Urine Color Yellow (Yellow) Urine Appearance Clear (Clear) Urine pH 7.0 (4.6-8.0) Ur Specific [place] 1.015 (1.005-1.030) Urine Protein >=1000 A (Negative) Urine Glucose (UA) Negative (Negative) mg/dL Urine Ketones Negative (Negative) Urine Blood Negative (Negative) Urine Nitrite Negative (Negative) Urine Bilirubin Negative (Negative) Urine Urobilinogen 1.0 A (0.2) mg/dL Ur Leukocyte Esterase Negative (Negative) U Hyaline Cast (Auto) NONE SEEN (0-2) /LPF Urine Microscopic RBC 0-2 (0-5) /HPF Urine Microscopic WBC 3-5 (0-5) /HPF Ur Epithelial Cells None Seen (None Seen) /HPF Urine Bacteria None Seen (None Seen) /HPF Urine Culture Reflexed ORDERED SEPARATELY (NO) Urine Opiates Level (NEGATIVE) Ur Methadone (NEGATIVE) Urine Barbiturates (NEGATIVE) Ur Phencyclidine (PCP) (NEGATIVE) Urine Amphetamine (NEGATIVE) U Benzodiazepine Level (NEGATIVE) Urine Cocaine (NEGATIVE) Urine Marijuana (THC) (NEGATIVE) Ethyl Alcohol < 10 (0-10) mg/dL Influenza Type A Ag (NEGATIVE) Influenza Type B Ag (NEGATIVE) RSV (PCR) (Negative) SARS-CoV-2 (PCR) (NEGATIVE) - Progress Progress: improved Progress Note: 10/27/22 15:10 CT scan of head without contrast is unchanged from same study that was performed 4 days ago. There is a nonacute senile brain without any acute findings. 10/27/22 16:07 Medical decision making: This emergency department evaluation is 1 of high complexity. I have reviewed several recent radiographic studies, revealed old chart information and ordered and reviewed new radiographic studies and the results as well as new laboratory studies and the results. I reviewed this patient with telemetry neurologist Dr. Ramirez. We formulated a plan. Patient is not a candidate for tPA. The neurologist recommends an MRI of the brain with and without contrast as well as a CTA of the neck. He also recommends inpatient evaluation. We will also order physical therapy and speech therapy for this patient. The neurologist obtained information from the patient that his symptoms began at around 9 AM rather than the 11:45 AM the EMS service had conveyed to us. 10/27/22 19:06 Medical decision making: I spoke with Dr. Pulido who is covering for Dr. Carson luevano. I believe the patient needs to be admitted to the hospital and we will order an echocardiogram for tomorrow. Patient will also have a consultat ion with physical therapy and speech pathology. We will place the patient on an aspirin a day. I spoke with Dr. Pulido and she agrees with this plan. She asked me to admit the patient to Dr. Byrd but she will be covering for him until tomorrow morning Discussed with Dr.: Shimon Counseled pt/family regarding: lab results, diagnosis, rad results - Departure Departure Disposition: In-patient Admission Clinical Impression: Aphasia Condition: Stable Critical Care Time: Yes Critical Care Time(excluding separately billable procedures): Critical 30-74 mins (45 minutes) Referrals: NICCI BYRD MD [Primary Care Provider] - Follow up/PCP as directed
--- NOTE | 2022-10-27 14:41 | XRAY ---
Indication: Aphasia. Multiple contiguous axial images obtained through the head without contrast. Comparison: October 23, 2022 Again age-appropriate global atrophy and minimal periventricular degenerative micro-ischemia bilaterally. No acute intracranial hemorrhage, abnormal extra-axial fluid collection, or mass effect. Fourth ventricle is midline without hydrocephalus. Bony calvarium intact. Visualized paranasal sinuses and mastoid air cells are clear. Impression: No change compared to CT 4 days ago. Continued nonacute senile brain.
[2022-10-27] MEDS ORDERED: Sodium Chloride 0.9% 1000 ML 1,000 ML ONE (14:43)
[2022-10-27] MEDS ORDERED: Sodium Chloride 0.9% 1000 ML 1,000 ML IV SCH (14:45)
[2022-10-27 14:55] LABS: Basophil (Absolute #) 0 x10^3/uL (0-0.4); Eosinophil (Absolute #) 0.11 x10^3/uL (0-0.5); Hematocrit 32.4 % (42-50); IMMATURE GRAN # 0.01 x10^3u/L (0.00-0.03); IMMATURE GRAN % 0.2 % (0.00-0.4); Lymphocyte (Absolute #) 0.97 x10^3/uL (1.0-4.6); Lymphocytes % 17.9 % (24.0-44.0); Mean Corpuscular Hemoglobin 28.4 pg (26-32); Mean Corpuscular Hgb Concent. 30.9 g/dL (32-36); Mean Platelet Volume 11.8 fL (7.5-11.0); Monocyte (Absolute #) 0.33 x10^3/uL (0.0-1.3); Monocytes % 6.1 % (0.0-12.0); Neutrophil % 73.8 % (36.0-66.0); Platelet Count 176 x10^3/uL (150-450); Red Blood Count 3.52 x10^6/uL (4.1-5.6); Red Cell Distribution Width 14.6 % (11.5-14.0); White Blood Count 5.4 x10^3/uL (4.0-10.5)
[2022-10-27 15:11] LABS: Appearance Clear (Clear); Bacteria None Seen /HPF (None Seen); Bilirubin Negative (Negative); Blood Negative (Negative); Epithelial Cells None Seen /HPF (None Seen); Glucose, Urine Negative (Negative); Hyaline Casts NONE SEEN /LPF (0-2); Ketones Negative (Negative); Leukocyte Esterase Negative (Negative); Nitrite Negative (Negative); Protein,Urine Dip >=1000 (Negative); RBC 0-2 /HPF (0-5); Specific Gravity 1.015 (1.005-1.030)
[2022-10-27 15:13] LABS: ADD URINE CULTURE? ORDERED SEPARATELY (NO)
[2022-10-27 15:20] LABS: ALBUMIN 3.1 g/dL (3.5-5.0); ALKALINE PHOSPHATASE 112 U/L (38-126); ANION GAP 7.6 MEQ/L (5-15); BLOOD UREA NITROGEN 28 mg/dL (9-20); CHLORIDE 105 mmol/L (98-107); Calcium 8.2 mg/dL (8.4-10.2); Carbon Dioxide 30 mmol/L (22-30); Creatinine 1 1.34 mg/dL (0.66-1.25); EST GLOMERULAR FILTRATION RATE 56.7 ML/MIN; ETHYL ALCOHOL < 10 mg/dL (0-10); Glucose 139 mg/dL (74-106); Potassium 4.1 mmol/L (3.5-5.1); SGOT/AST 26 U/L (17-59); SGPT/ALT 24 U/L (0-50); SODIUM 139 mmol/L (137-145); Total Protein 5.7 g/dL (6.3-8.2)
[2022-10-27 15:32] LABS: Amphetamine,Urine NEGATIVE (NEGATIVE); Barbiturate,Urine NEGATIVE (NEGATIVE); Benzodiazepine,Urine NEGATIVE (NEGATIVE); Cocaine,Urine NEGATIVE (NEGATIVE); Methadone,Urine NEGATIVE (NEGATIVE); Opiate,Urine POSITIVE (NEGATIVE); PCP,Urine NEGATIVE (NEGATIVE); THC,Urine NEGATIVE (NEGATIVE)
[2022-10-27 15:39] LABS: INFLUENZA A NEGATIVE (NEGATIVE); INFLUENZA B NEGATIVE (NEGATIVE); RESPIRATORY SYNCTIAL VIRUS NEGATIVE (Negative); SARS-CoV-2 Xpert Express NEGATIVE (NEGATIVE)
--- NOTE | 2022-10-27 17:11 | XRAY ---
Indication: Aphasia. Sagittal, coronal, and axial MRI brain performed using pre and post T1, T2, FLAIR, diffusion, and ADC sequences. 20 cc Dotarem contrast used. Comparison: None Age-appropriate global atrophy and mild periventricular degenerative micro-ischemia bilaterally. Brainstem demonstrates lesser degenerative micro-ischemia signal. No acute intracranial hemorrhage, abnormal extra-axial fluid collection, or mass effect. Diffusion images are negative for restricted signal. Following gadolinium, there is no abnormal enhancing intra or extra-axial mass. Fourth ventricle is midline without hydrocephalus. 7/8 cranial nerve complex bilaterally symmetric. Normal flow void signal within the major intracerebral circulation. Normal appearing craniocervical junction and sella turcica. Paranasal sinuses are clear. Impression: 1. Atrophy and degenerative micro-ischemia within normal limits for patient's age. 2. Remaining MRI brain with contrast exam is negative.
[2022-10-27 17:37] LABS: INFLUENZA A NEGATIVE (NEGATIVE); INFLUENZA B NEGATIVE (NEGATIVE); RESPIRATORY SYNCTIAL VIRUS NEGATIVE (Negative); SARS-CoV-2 Xpert Express NEGATIVE (NEGATIVE)
[2022-10-27] MEDS: Sodium Chloride 0.9% 1000 ML 1,000 ML IV SCH ×2 (21:00→22:22)
[2022-10-27] MEDS ORDERED: Zofran 4 MG/2 ML VIAL IV PRN (21:18)
[2022-10-27] MEDS ORDERED: TYLENOL 325 MG PO PRN (21:18)
[2022-10-27] MEDS: COREG 12.5 MG PO SCH (22:53)
[2022-10-27] MEDS: NORCO 5/325 MG PO PRN (22:54)
[2022-10-27] MEDS: ZYLOPRIM 100 MG PO SCH (22:54)
[2022-10-27] MEDS ORDERED: HUMALOG SQ PRN (23:00)
[2022-10-28 05:53] LABS: Absolute Neutrophil Ct (ANC) 3.33 x10^3/uL (1.4-6.9); BASOPHIL % 0.2 % (0.0-0.4); Basophil (Absolute #) 0.01 x10^3/uL (0-0.4); Eosinophil % 2.2 % (0.00-5.0); Hematocrit 29.8 % (42-50); Hemoglobin 9.2 g/dL (12.5-18.0); IMMATURE GRAN # 0.02 x10^3u/L (0.00-0.03); IMMATURE GRAN % 0.4 % (0.00-0.4); Lymphocyte (Absolute #) 0.67 x10^3/uL (1.0-4.6); Lymphocytes % 15.1 % (24.0-44.0); Mean Cell Volume 91.7 fL (78-100); Mean Corpuscular Hemoglobin 28.3 pg (26-32); Mean Corpuscular Hgb Concent. 30.9 g/dL (32-36); Mean Platelet Volume 12.3 fL (7.5-11.0); Monocyte (Absolute #) 0.32 x10^3/uL (0.0-1.3); Monocytes % 7.2 % (0.0-12.0); Neutrophil % 74.9 % (36.0-66.0); Platelet Count 165 x10^3/uL (150-450); Red Blood Count 3.25 x10^6/uL (4.1-5.6); Red Cell Distribution Width 14.6 % (11.5-14.0); White Blood Count 4.5 x10^3/uL (4.0-10.5)
[2022-10-28 06:30] LABS: ALBUMIN 2.7 g/dL (3.5-5.0); ANION GAP 5.7 MEQ/L (5-15); BILIRUBIN,TOTAL 0.3 mg/dL (0.2-1.3); Calcium 8.1 mg/dL (8.4-10.2); Creatinine 1 1.29 mg/dL (0.66-1.25); EST GLOMERULAR FILTRATION RATE 59.2 ML/MIN; Potassium 3.9 mmol/L (3.5-5.1); Total Protein 5.2 g/dL (6.3-8.2)
--- NOTE | 2022-10-28 08:40 | XRAY ---
Indication: Aphasia. Carotid obstruction versus aneurysm. Conventional contrast enhanced CTA neck performed using 80 cc Isovue 370 contrast. 2-D sagittal and coronal reformatted images obtained. Additional 3-D reformatted images obtained using separate workstation. Comparison: None There is suboptimal opacification of the carotid arteries of the neck. Left and right common carotid arteries are normal in CTA appearance. Minimal heterogeneous plaquing seen at the level of the carotid bulb bilaterally. Proximal right internal carotid artery is tortuous with mild scattered calcified plaquing. Remaining left/right external and left internal carotid arteries are normal in CTA appearance. Intracranial segments of the internal carotid arteries demonstrates mild right and minimal left scattered arteriosclerotic calcifications involving the parasellar segments. Vertebral arteries are bilaterally patent with the right larger in caliber. Distal left vertebral artery demonstrates high-grade stenosis just prior to vertebrobasilar junction. Thyroid gland enhances homogeneously. Scattered subcentimeter cervical nodes bilaterally, none pathologically enlarged. Parotid and submandibular glands are bilaterally symmetric. Supra-and infraglottic airway widely patent. Osseous structures intact with mild/moderate multilevel cervical degenerative spondylosis greatest at C4-C7 and minimal grade 1 anterolisthesis of C3 on C4. Patient is edentulous. Base of the brain and lung apices are unremarkable. Impression: 1. Minimal/mild scattered arteriosclerotic disease both carotid arteries of the neck as detailed. Negative for critical stenosis, obstruction, or AV malformation. 2. Dominant right vertebral artery. High-grade stenosis distal left vertebral artery. 3. Incidental multilevel cervical degenerative spondylosis and minimal grade 1 C3 spondylolisthesis.
[2022-10-28] MEDS: NORCO 5/325 MG PO PRN (09:07)
[2022-10-28] MEDS: ZYLOPRIM 100 MG PO SCH (09:08)
[2022-10-28] MEDS: COREG 12.5 MG PO SCH (09:08)
--- NOTE | 2022-10-28 09:17 | PCM.SSS ---
History of Present Illness - Chief Complaint Chief Complaint: Aphasic History of Present Illness: is a 67 year old male who presented to the ER yesterday ,he reported trouble finding words. he had no focal motor weakness or sensory deficits, he seems to have no trouble with aphasia at this time. he complains of his tailbone and left shoulder hurting, he was discharged 2 days ago after multiple falls. he is currently in the process of a divorce that he states is "nasty" and he is l iving in a camper without functional plumbing and poor heat. - Review of Systems Constitutional: No Fever, No Chills Respiratory: No Cough, No Short Of Breath Cardiac: No Chest Pain, No Edema, No Syncope Abdominal/Gastrointestinal: No Abdominal Pain, No Nausea, No Vomiting, No Diarrhea Neurological: Speech Changes, No Focal Weakness All Other Systems: Reviewed and Negative Medications & Allergies Home Medications: Home Medication List Metformin HCl [Glucophage] 1,000 mg PO BID 01/22/17 [History Confirmed 10/27/22] Losartan Potassium 50 mg [Cozaar 50 MG] 50 mg PO DAILY 05/26/19 [History Confirmed 10/27/22] Furosemide 40 mg [Lasix 40 MG] 1 tab PO DAILY 07/18/19 [History Confirmed 10/27/22] Ezetimibe 10 mg PO DAILY 04/26/20 [History Confirmed 10/27/22] Clopidogrel Bisulfate [PLAVIX Tablet] 75 mg PO DAILY 02/10/21 [History Confirmed 10/27/22] Hydrochlorothiazide 25 mg [hydroDIURIL 25 MG] 25 mg PO DAILY 02/10/21 [History Confirmed 10/27/22] carvediloL [Carvedilol] 25 mg PO BID 02/10/21 [History Confirmed 10/27/22] Allopurinol 100 mg [Zyloprim 100 mg] 100 mg PO BID 06/06/21 [History Confirmed 10/27/22] Aspirin EC 81 mg [Ecotrin 81 mg] 1 tab PO DAILY 10/23/22 [History Confirmed 10/27/22] Hydrocodone/Acetaminophen [Hydrocodone-Acetamin 5-325 mg] 1 tab PO Q6HPRN PRN #20 tablet MDD 4 10/26/22 [Rx Confirmed 10/27/22] Levothyroxine Sodium 50 Mcg [Synthroid 50 Mcg] 50 mcg PO DAILY #30 tablet 10/26/22 [Rx Confirmed 10/27/22] Allergies/Adverse Reactions: Allergies Allergy/AdvReac Type Severity Reaction Status Date / Time gabapentin AdvReac Verified 10/27/22 21:32 - Past Medical History Past Medical History: Yes Neurological History: No Pertinent History ENT History: No Pertinent History Cardiac History: Angina, Coronary Artery Disease, High Cholesterol, Hypertension, Myocardial Infarction (ID) Respiratory History: COPD Endocrine Medical History: Diabetes Type II Musculoskelatal History: Osteoarthritis GI Medical History: No Pertinent History History: No Pertinent History Pyscho-Social History: No Pertinent History Male Reproductive Disorders: No Pertinent History Comment: fractured ribs, anemia, gout - Past Surgical History Past Surgical History: Yes Neuro Surgical History: No Pertinent History Cardiac History: CABG, Other Respiratory Surgery: Chest Surgery GI Surgical History: No Pertinent History Genitourinary Surgical Hx: No Pertinent History Musculskeletal Surgical Hx: Orthopedic Surgery Male Surgical History: No Pertinent History Other Surgical History: umbilical, triple bypass, L shoulder - Social History Smoking Status: Current every day smoker How long have you smoked: 53 Exposure to second hand smoke: Yes Alcohol: None Drug Use: none - Physical Exam Vital Signs: Vital Signs - 24 hr Temp Pulse Resp BP BP Pulse Ox 10/28/22 07:32 97.5 F 60 16 154/77 93 L 10/28/22 07:21 92 L 10/28/22 03:53 97.7 F 60 20 127/65 92 L 10/28/22 00:00 97.1 F 61 20 150/71 94 L 10/27/22 23:39 96 10/27/22 21:00 97.1 F 61 16 182/88 96 10/27/22 20:00 56 L 143/65 98 10/27/22 19:07 58 L 167/80 98 10/27/22 18:28 56 L 143/72 97 10/27/22 17:00 63 144/75 93 L 10/27/22 15:23 98.2 F 65 20 150/73 98 10/27/22 14:39 92 L 10/27/22 14:35 98.2 F 66 20 150/73 94 L General Appearance: no apparent distress Neurologic Exam: alert, oriented x 3, cooperative, sign language interpreter II-XII nml as tested, sensation nml, No motor deficits, No sensory deficit, No disoriented, No confusion, No motor weakness, No facial droop, No slurred speech Eye Exam: PERRL/EOMI, eyes nml inspection Respiratory Exam: normal breath sounds, lungs clear, No respiratory distress Cardiovascular Exam: regular rate/rhythm, normal heart sounds, normal peripheral pulses Gastrointestinal/Abdomen Exam: soft, normal bowel sounds, No tenderness, No mass Extremity Exam: normal inspection, normal range of motion, pelvis stable Skin Exam: normal color, warm, dry, No rash Results - Labs Lab/Micro Results: Lab Results-Last 24 Hours 10/27/22 10/27/22 10/27/22 Range/Units 14:54 14:54 14:58 WBC 5.4 (4.0-10.5) x10^3/uL RBC 3.52 L (4.1-5.6) x10^6/uL Hgb 10.0 L (12.5-18.0) g/dL Hct 32.4 L (42-50) % MCV 92.0 (78-100) fL MCH 28.4 (26-32) pg MCHC 30.9 L (32-36) g/dL RDW 14.6 H (11.5-14.0) % Plt Count 176 (150-450) x10^3/uL MPV 11.8 H (7.5-11.0) fL Gran % 73.8 H (36.0-66.0) % Immature Gran % (Auto) 0.2 (0.00-0.4) % Nucleat RBC Rel Count 0.0 (0.00-0.1) % Eos # (Auto) 0.11 (0-0.5) x10^3/uL Immature Gran # (Auto) 0.01 (0.00-0.03) x10^3u/L Absolute Lymphs (auto) 0.97 L (1.0-4.6) x10^3/uL Absolute Monos (auto) 0.33 (0.0-1.3) x10^3/uL Absolute Nucleated RBC 0.00 (0.00-0.01) x10^3u/L Lymphocytes % 17.9 L (24.0-44.0) % Monocytes % 6.1 (0.0-12.0) % Eosinophils % 2.0 (0.00-5.0) % Basophils % 0.0 (0.0-0.4) % Absolute Granulocytes 4.00 (1.4-6.9) x10^3/uL Basophils # 0 (0-0.4) x10^3/uL Sodium 139 (137-145) mmol/L Potassium 4.1 (3.5-5.1) mmol/L Chloride 105 (98-107) mmol/L Carbon Dioxide 30 (22-30) mmol/L Anion Gap 7.6 (5-15) MEQ/L BUN 28 H (9-20) mg/dL Creatinine 1.34 H (0.66-1.25) mg/dL Estimated GFR 56.7 ML/MIN Glucose 139 H (74-106) mg/dL POC Glucometer (74 to 106) mg/dL Calcium 8.2 L (8.4-10.2) mg/dL Total Bilirubin 0.30 (0.2-1.3) mg/dL AST 26 (17-59) U/L ALT 24 (0-50) U/L Alkaline Phosphatase 112 (38-126) U/L Serum Total Protein 5.7 L (6.3-8.2) g/dL Albumin 3.1 L (3.5-5.0) g/dL Urine Color Yellow (Yellow) Urine Appearance Clear (Clear) Urine pH 7.0 (4.6-8.0) Ur Specific [place] 1.015 (1.005-1.030) Urine Protein >=1000 A (Negative) Urine Glucose (UA) Negative (Negative) mg/dL Urine Ketones Negative (Negative) Urine Blood Negative (Negative) Urine Nitrite Negative (Negative) Urine Bilirubin Negative (Negative) Urine Urobilinogen 1.0 A (0.2) mg/dL Ur Leukocyte Esterase Negative (Negative) U Hyaline Cast (Auto) NONE SEEN (0-2) /LPF Urine Microscopic RBC 0-2 (0-5) /HPF Urine Microscopic WBC 3-5 (0-5) /HPF Ur Epithelial Cells None Seen (None Seen) /HPF Urine Bacteria None Seen (None Seen) /HPF Urine Culture Reflexed ORDERED SEPARATELY (NO) Urine Opiates Level (NEGATIVE) Ur Methadone (NEGATIVE) Urine Barbiturates (NEGATIVE) Ur Phencyclidine (PCP) (NEGATIVE) Urine Amphetamine (NEGATIVE) U Benzodiazepine Level (NEGATIVE) Urine Cocaine (NEGATIVE) Urine Marijuana (THC) (NEGATIVE) Ethyl Alcohol < 10 (0-10) mg/dL Influenza Type A Ag (NEGATIVE) Influenza Type B Ag (NEGATIVE) RSV (PCR) (Negative) SARS-CoV-2 (PCR) (NEGATIVE) 10/27/22 10/27/22 10/27/22 Range/Units 14:58 15:01 16:50 WBC (4.0-10.5) x10^3/uL RBC (4.1-5.6) x10^6/uL Hgb (12.5-18.0) g/dL Hct (42-50) % MCV (78-100) fL MCH (26-32) pg MCHC (32-36) g/dL RDW (11.5-14.0) % Plt Count (150-450) x10^3/uL MPV (7.5-11.0) fL Gran % (36.0-66.0) % Immature Gran % (Auto) (0.00-0.4) % Nucleat RBC Rel Count (0.00-0.1) % Eos # (Auto) (0-0.5) x10^3/uL Immature Gran # (Auto) (0.00-0.03) x10^3u/L Absolute Lymphs (auto) (1.0-4.6) x10^3/uL Absolute Monos (auto) (0.0-1.3) x10^3/uL Absolute Nucleated RBC (0.00-0.01) x10^3u/L Lymphocytes % (24.0-44.0) % Monocytes % (0.0-12.0) % Eosinophils % (0.00-5.0) % Basophils % (0.0-0.4) % Absolute Granulocytes (1.4-6.9) x10^3/uL Basophils # (0-0.4) x10^3/uL Sodium (137-145) mmol/L Potassium (3.5-5.1) mmol/L Chloride (98-107) mmol/L Carbon Dioxide (22-30) mmol/L Anion Gap (5-15) MEQ/L BUN (9-20) mg/dL Creatinine (0.66-1.25) mg/dL Estimated GFR ML/MIN Glucose (74-106) mg/dL POC Glucometer (74 to 106) mg/dL Calcium (8.4-10.2) mg/dL Total Bilirubin (0.2-1.3) mg/dL AST (17-59) U/L ALT (0-50) U/L Alkaline Phosphatase (38-126) U/L Serum Total Protein (6.3-8.2) g/dL Albumin (3.5-5.0) g/dL Urine Color (Yellow) Urine Appearance (Clear) Urine pH (4.6-8.0) Ur Specific [place] (1.005-1.030) Urine Protein (Negative) Urine Glucose (UA) (Negative) mg/dL Urine Ketones (Negative) Urine Blood (Negative) Urine Nitrite (Negative) Urine Bilirubin (Negative) Urine Urobilinogen (0.2) mg/dL Ur Leukocyte Esterase (Negative) U Hyaline Cast (Auto) (0-2) /LPF Urine Microscopic RBC (0-5) /HPF Urine Microscopic WBC (0-5) /HPF Ur Epithelial Cells (None Seen) /HPF Urine Bacteria (None Seen) /HPF Urine Culture Reflexed (NO) Urine Opiates Level POSITIVE (NEGATIVE) Ur Methadone NEGATIVE (NEGATIVE) Urine Barbiturates NEGATIVE (NEGATIVE) Ur Phencyclidine (PCP) NEGATIVE (NEGATIVE) Urine Amphetamine NEGATIVE (NEGATIVE) U Benzodiazepine Level NEGATIVE (NEGATIVE) Urine Cocaine NEGATIVE (NEGATIVE) Urine Marijuana (THC) NEGATIVE (NEGATIVE) Ethyl Alcohol (0-10) mg/dL Influenza Type A Ag NEGATIVE NEGATIVE (NEGATIVE) Influenza Type B Ag NEGATIVE NEGATIVE (NEGATIVE) RSV (PCR) NEGATIVE NEGATIVE (Negative) SARS-CoV-2 (PCR) NEGATIVE NEGATIVE (NEGATIVE) 10/27/22 10/28/22 10/28/22 Range/Units 23:04 05:00 05:00 WBC 4.5 (4.0-10.5) x10^3/uL RBC 3.25 L (4.1-5.6) x10^6/uL Hgb 9.2 L (12.5-18.0) g/dL Hct 29.8 L (42-50) % MCV 91.7 (78-100) fL MCH 28.3 (26-32) pg MCHC 30.9 L (32-36) g/dL RDW 14.6 H (11.5-14.0) % Plt Count 165 (150-450) x10^3/uL MPV 12.3 H (7.5-11.0) fL Gran % 74.9 H (36.0-66.0) % Immature Gran % (Auto) 0.4 (0.00-0.4) % Nucleat RBC Rel Count 0.0 (0.00-0.1) % Eos # (Auto) 0.10 (0-0.5) x10^3/uL Immature Gran # (Auto) 0.02 (0.00-0.03) x10^3u/L Absolute Lymphs (auto) 0.67 L (1.0-4.6) x10^3/uL Absolute Monos (auto) 0.32 (0.0-1.3) x10^3/uL Absolute Nucleated RBC 0.00 (0.00-0.01) x10^3u/L Lymphocytes % 15.1 L (24.0-44.0) % Monocytes % 7.2 (0.0-12.0) % Eosinophils % 2.2 (0.00-5.0) % Basophils % 0.2 (0.0-0.4) % Absolute Granulocytes 3.33 (1.4-6.9) x10^3/uL Basophils # 0.01 (0-0.4) x10^3/uL Sodium 138 (137-145) mmol/L Potassium 3.9 (3.5-5.1) mmol/L Chloride 105 (98-107) mmol/L Carbon Dioxide 31 H (22-30) mmol/L Anion Gap 5.7 (5-15) MEQ/L BUN 27 H (9-20) mg/dL Creatinine 1.29 H (0.66-1.25) mg/dL Estimated GFR 59.2 ML/MIN Glucose 204 H (74-106) mg/dL POC Glucometer 96 (74 to 106) mg/dL Calcium 8.1 L (8.4-10.2) mg/dL Total Bilirubin 0.30 (0.2-1.3) mg/dL AST 19 (17-59) U/L ALT 19 (0-50) U/L Alkaline Phosphatase 92 (38-126) U/L Serum Total Protein 5.2 L (6.3-8.2) g/dL Albumin 2.7 L (3.5-5.0) g/dL Urine Color (Yellow) Urine Appearance (Clear) Urine pH (4.6-8.0) Ur Specific [place] (1.005-1.030) Urine Protein (Negative) Urine Glucose (UA) (Negative) mg/dL Urine Ketones (Negative) Urine Blood (Negative) Urine Nitrite (Negative) Urine Bilirubin (Negative) Urine Urobilinogen (0.2) mg/dL Ur Leukocyte Esterase (Negative) U Hyaline Cast (Auto) (0-2) /LPF Urine Microscopic RBC (0-5) /HPF Urine Microscopic WBC (0-5) /HPF Ur Epithelial Cells (None Seen) /HPF Urine Bacteria (None Seen) /HPF Urine Culture Reflexed (NO) Urine Opiates Level (NEGATIVE) Ur Methadone (NEGATIVE) Urine Barbiturates (NEGATIVE) Ur Phencyclidine (PCP) (NEGATIVE) Urine Amphetamine (NEGATIVE) U Benzodiazepine Level (NEGATIVE) Urine Cocaine (NEGATIVE) Urine Marijuana (THC) (NEGATIVE) Ethyl Alcohol (0-10) mg/dL Influenza Type A Ag (NEGATIVE) Influenza Type B Ag (NEGATIVE) RSV (PCR) (Negative) SARS-CoV-2 (PCR) (NEGATIVE) 10/28/22 Range/Units 07:07 WBC (4.0-10.5) x10^3/uL RBC (4.1-5.6) x10^6/uL Hgb (12.5-18.0) g/dL Hct (42-50) % MCV (78-100) fL MCH (26-32) pg MCHC (32-36) g/dL RDW (11.5-14.0) % Plt Count (150-450) x10^3/uL MPV (7.5-11.0) fL Gran % (36.0-66.0) % Immature Gran % (Auto) (0.00-0.4) % Nucleat RBC Rel Count (0.00-0.1) % Eos # (Auto) (0-0.5) x10^3/uL Immature Gran # (Auto) (0.00-0.03) x10^3u/L Absolute Lymphs (auto) (1.0-4.6) x10^3/uL Absolute Monos (auto) (0.0-1.3) x10^3/uL Absolute Nucleated RBC (0.00-0.01) x10^3u/L Lymphocytes % (24.0-44.0) % Monocytes % (0.0-12.0) % Eosinophils % (0.00-5.0) % Basophils % (0.0-0.4) % Absolute Granulocytes (1.4-6.9) x10^3/uL Basophils # (0-0.4) x10^3/uL Sodium (137-145) mmol/L Potassium (3.5-5.1) mmol/L Chloride (98-107) mmol/L Carbon Dioxide (22-30) mmol/L Anion Gap (5-15) MEQ/L BUN (9-20) mg/dL Creatinine (0.66-1.25) mg/dL Estimated GFR ML/MIN Glucose (74-106) mg/dL POC Glucometer 182 H (74 to 106) mg/dL Calcium (8.4-10.2) mg/dL Total Bilirubin (0.2-1.3) mg/dL AST (17-59) U/L ALT (0-50) U/L Alkaline Phosphatase (38-126) U/L Serum Total Protein (6.3-8.2) g/dL Albumin (3.5-5.0) g/dL Urine Color (Yellow) Urine Appearance (Clear) Urine pH (4.6-8.0) Ur Specific [place] (1.005-1.030) Urine Protein (Negative) Urine Glucose (UA) (Negative) mg/dL Urine Ketones (Negative) Urine Blood (Negative) Urine Nitrite (Negative) Urine Bilirubin (Negative) Urine Urobilinogen (0.2) mg/dL Ur Leukocyte Esterase (Negative) U Hyaline Cast (Auto) (0-2) /LPF Urine Microscopic RBC (0-5) /HPF Urine Microscopic WBC (0-5) /HPF Ur Epithelial Cells (None Seen) /HPF Urine Bacteria (None Seen) /HPF Urine Culture Reflexed (NO) Urine Opiates Level (NEGATIVE) Ur Methadone (NEGATIVE) Urine Barbiturates (NEGATIVE) Ur Phencyclidine (PCP) (NEGATIVE) Urine Amphetamine (NEGATIVE) U Benzodiazepine Level (NEGATIVE) Urine Cocaine (NEGATIVE) Urine Marijuana (THC) (NEGATIVE) Ethyl Alcohol (0-10) mg/dL Influenza Type A Ag (NEGATIVE) Influenza Type B Ag (NEGATIVE) RSV (PCR) (Negative) SARS-CoV-2 (PCR) (NEGATIVE) Microbiology 10/27/22 14:58 Urine Culture - Preliminary Catherized NO GROWTH TO DATE Accuchecks Date 10/28/22 Date 10/27/22 Date 10/27/22 Time 23:00 Time 01:41 - Radiology Impressions Radiology Exams & Impressions: Radiology Procedures Category Date Time Status CT ANGIOGRAPHY NECK [CT] Stat Exams 10/27/22 15:40 Completed ECHO W/2D AND DOPPLER [US] Stat Exams 10/27/22 21:18 Ordered HEAD WITHOUT CONTRAST [CT] Stat Exams 10/27/22 14:23 Completed MRI BRAIN W & W/O CONTRAST [MRI] Stat Exams 10/27/22 15:40 Completed - Other Procedures and Tests Respiratory Therapy 10/27/22 23:39 Oxygen Nasal Cannula 2 lpm Assessment/Plan (1) TIA (transient ischemic attack) Current Visit: Yes Status: Acute Assessment & Plan: aphasia has resolved and radiology reads his MRI as negative, no evidence of infarct. he does have significant verterbral artery stenosis on the left but with a negative MRI I don't feel this is an emergent finding. he is on aspirin/plavix at this time and takes zetia for lipids. he seems well managed medically at this time. most of his pressing issues are social in nature. Code(s): G45.9 - TRANSIENT CEREBRAL ISCHEMIC ATTACK, UNSPECIFIED (2) Vertebral artery stenosis Current Visit: Yes Status: Acute Code(s): I65.09 - OCCLUSION AND STENOSIS OF UNSPECIFIED VERTEBRAL ARTERY (3) Type 2 diabetes mellitus with circulatory disorder Current Visit: No Status: Chronic Qualifiers: Code(s): E11.59 - TYPE 2 DIABETES MELLITUS WITH OTH CIRCULATORY COMPLICATIONS Hospital Summary - Vitals & Intake/Output Vital Signs: Vital Signs Temperature 97.5 F 10/28/22 07:32 Pulse Rate 60 10/28/22 07:32 Respiratory Rate 16 10/28/22 07:32 Blood Pressure 154/77 10/28/22 07:32 O2 Sat by Pulse Oximetry 93 L 10/28/22 07:32 Intake & Output: Intake & Output 10/25/22 10/26/22 10/27/22 10/28/22 11:59 11:59 11:59 11:59 Intake Total 1499 Output Total 1975 Balance -476 Weight 107.3 kg - Lab Result Diagrams: 10/28/22 05:00 10/28/22 05:00 Lab Results-Last 24 Hrs: Lab Results-Last 24 Hours 10/27/22 10/27/22 10/27/22 Range/Units 14:54 14:54 14:58 WBC 5.4 (4.0-10.5) x10^3/uL RBC 3.52 L (4.1-5.6) x10^6/uL Hgb 10.0 L (12.5-18.0) g/dL Hct 32.4 L (42-50) % MCV 92.0 (78-100) fL MCH 28.4 (26-32) pg MCHC 30.9 L (32-36) g/dL RDW 14.6 H (11.5-14.0) % Plt Count 176 (150-450) x10^3/uL MPV 11.8 H (7.5-11.0) fL Gran % 73.8 H (36.0-66.0) % Immature Gran % (Auto) 0.2 (0.00-0.4) % Nucleat RBC Rel Count 0.0 (0.00-0.1) % Eos # (Auto) 0.11 (0-0.5) x10^3/uL Immature Gran # (Auto) 0.01 (0.00-0.03) x10^3u/L Absolute Lymphs (auto) 0.97 L (1.0-4.6) x10^3/uL Absolute Monos (auto) 0.33 (0.0-1.3) x10^3/uL Absolute Nucleated RBC 0.00 (0.00-0.01) x10^3u/L Lymphocytes % 17.9 L (24.0-44.0) % Monocytes % 6.1 (0.0-12.0) % Eosinophils % 2.0 (0.00-5.0) % Basophils % 0.0 (0.0-0.4) % Absolute Granulocytes 4.00 (1.4-6.9) x10^3/uL Basophils # 0 (0-0.4) x10^3/uL Sodium 139 (137-145) mmol/L Potassium 4.1 (3.5-5.1) mmol/L Chloride 105 (98-107) mmol/L Carbon Dioxide 30 (22-30) mmol/L Anion Gap 7.6 (5-15) MEQ/L BUN 28 H (9-20) mg/dL Creatinine 1.34 H (0.66-1.25) mg/dL Estimated GFR 56.7 ML/MIN Glucose 139 H (74-106) mg/dL POC Glucometer (74 to 106) mg/dL Calcium 8.2 L (8.4-10.2) mg/dL Total Bilirubin 0.30 (0.2-1.3) mg/dL AST 26 (17-59) U/L ALT 24 (0-50) U/L Alkaline Phosphatase 112 (38-126) U/L Serum Total Protein 5.7 L (6.3-8.2) g/dL Albumin 3.1 L (3.5-5.0) g/dL Urine Color Yellow (Yellow) Urine Appearance Clear (Clear) Urine pH 7.0 (4.6-8.0) Ur Specific [place] 1.015 (1.005-1.030) Urine Protein >=1000 A (Negative) Urine Glucose (UA) Negative (Negative) mg/dL Urine Ketones Negative (Negative) Urine Blood Negative (Negative) Urine Nitrite Negative (Negative) Urine Bilirubin Negative (Negative) Urine Urobilinogen 1.0 A (0.2) mg/dL Ur Leukocyte Esterase Negative (Negative) U Hyaline Cast (Auto) NONE SEEN (0-2) /LPF Urine Microscopic RBC 0-2 (0-5) /HPF Urine Microscopic WBC 3-5 (0-5) /HPF Ur Epithelial Cells None Seen (None Seen) /HPF Urine Bacteria None Seen (None Seen) /HPF Urine Culture Reflexed ORDERED SEPARATELY (NO) Urine Opiates Level (NEGATIVE) Ur Methadone (NEGATIVE) Urine Barbiturates (NEGATIVE) Ur Phencyclidine (PCP) (NEGATIVE) Urine Amphetamine (NEGATIVE) U Benzodiazepine Level (NEGATIVE) Urine Cocaine (NEGATIVE) Urine Marijuana (THC) (NEGATIVE) Ethyl Alcohol < 10 (0-10) mg/dL Influenza Type A Ag (NEGATIVE) Influenza Type B Ag (NEGATIVE) RSV (PCR) (Negative) SARS-CoV-2 (PCR) (NEGATIVE) 10/27/22 10/27/22 10/27/22 Range/Units 14:58 15:01 16:50 WBC (4.0-10.5) x10^3/uL RBC (4.1-5.6) x10^6/uL Hgb (12.5-18.0) g/dL Hct (42-50) % MCV (78-100) fL MCH (26-32) pg MCHC (32-36) g/dL RDW (11.5-14.0) % Plt Count (150-450) x10^3/uL MPV (7.5-11.0) fL Gran % (36.0-66.0) % Immature Gran % (Auto) (0.00-0.4) % Nucleat RBC Rel Count (0.00-0.1) % Eos # (Auto) (0-0.5) x10^3/uL Immature Gran # (Auto) (0.00-0.03) x10^3u/L Absolute Lymphs (auto) (1.0-4.6) x10^3/uL Absolute Monos (auto) (0.0-1.3) x10^3/uL Absolute Nucleated RBC (0.00-0.01) x10^3u/L Lymphocytes % (24.0-44.0) % Monocytes % (0.0-12.0) % Eosinophils % (0.00-5.0) % Basophils % (0.0-0.4) % Absolute Granulocytes (1.4-6.9) x10^3/uL Basophils # (0-0.4) x10^3/uL Sodium (137-145) mmol/L Potassium (3.5-5.1) mmol/L Chloride (98-107) mmol/L Carbon Dioxide (22-30) mmol/L Anion Gap (5-15) MEQ/L BUN (9-20) mg/dL Creatinine (0.66-1.25) mg/dL Estimated GFR ML/MIN Glucose (74-106) mg/dL POC Glucometer (74 to 106) mg/dL Calcium (8.4-10.2) mg/dL Total Bilirubin (0.2-1.3) mg/dL AST (17-59) U/L ALT (0-50) U/L Alkaline Phosphatase (38-126) U/L Serum Total Protein (6.3-8.2) g/dL Albumin (3.5-5.0) g/dL Urine Color (Yellow) Urine Appearance (Clear) Urine pH (4.6-8.0) Ur Specific [place] (1.005-1.030) Urine Protein (Negative) Urine Glucose (UA) (Negative) mg/dL Urine Ketones (Negative) Urine Blood (Negative) Urine Nitrite (Negative) Urine Bilirubin (Negative) Urine Urobilinogen (0.2) mg/dL Ur Leukocyte Esterase (Negative) U Hyaline Cast (Auto) (0-2) /LPF Urine Microscopic RBC (0-5) /HPF Urine Microscopic WBC (0-5) /HPF Ur Epithelial Cells (None Seen) /HPF Urine Bacteria (None Seen) /HPF Urine Culture Reflexed (NO) Urine Opiates Level POSITIVE (NEGATIVE) Ur Methadone NEGATIVE (NEGATIVE) Urine Barbiturates NEGATIVE (NEGATIVE) Ur Phencyclidine (PCP) NEGATIVE (NEGATIVE) Urine Amphetamine NEGATIVE (NEGATIVE) U Benzodiazepine Level NEGATIVE (NEGATIVE) Urine Cocaine NEGATIVE (NEGATIVE) Urine Marijuana (THC) NEGATIVE (NEGATIVE) Ethyl Alcohol (0-10) mg/dL Influenza Type A Ag NEGATIVE NEGATIVE (NEGATIVE) Influenza Type B Ag NEGATIVE NEGATIVE (NEGATIVE) RSV (PCR) NEGATIVE NEGATIVE (Negative) SARS-CoV-2 (PCR) NEGATIVE NEGATIVE (NEGATIVE) 10/27/22 10/28/22 10/28/22 Range/Units 23:04 05:00 05:00 WBC 4.5 (4.0-10.5) x10^3/uL RBC 3.25 L (4.1-5.6) x10^6/uL Hgb 9.2 L (12.5-18.0) g/dL Hct 29.8 L (42-50) % MCV 91.7 (78-100) fL MCH 28.3 (26-32) pg MCHC 30.9 L (32-36) g/dL RDW 14.6 H (11.5-14.0) % Plt Count 165 (150-450) x10^3/uL MPV 12.3 H (7.5-11.0) fL Gran % 74.9 H (36.0-66.0) % Immature Gran % (Auto) 0.4 (0.00-0.4) % Nucleat RBC Rel Count 0.0 (0.00-0.1) % Eos # (Auto) 0.10 (0-0.5) x10^3/uL Immature Gran # (Auto) 0.02 (0.00-0.03) x10^3u/L Absolute Lymphs (auto) 0.67 L (1.0-4.6) x10^3/uL Absolute Monos (auto) 0.32 (0.0-1.3) x10^3/uL Absolute Nucleated RBC 0.00 (0.00-0.01) x10^3u/L Lymphocytes % 15.1 L (24.0-44.0) % Monocytes % 7.2 (0.0-12.0) % Eosinophils % 2.2 (0.00-5.0) % Basophils % 0.2 (0.0-0.4) % Absolute Granulocytes 3.33 (1.4-6.9) x10^3/uL Basophils # 0.01 (0-0.4) x10^3/uL Sodium 138 (137-145) mmol/L Potassium 3.9 (3.5-5.1) mmol/L Chloride 105 (98-107) mmol/L Carbon Dioxide 31 H (22-30) mmol/L Anion Gap 5.7 (5-15) MEQ/L BUN 27 H (9-20) mg/dL Creatinine 1.29 H (0.66-1.25) mg/dL Estimated GFR 59.2 ML/MIN Glucose 204 H (74-106) mg/dL POC Glucometer 96 (74 to 106) mg/dL Calcium 8.1 L (8.4-10.2) mg/dL Total Bilirubin 0.30 (0.2-1.3) mg/dL AST 19 (17-59) U/L ALT 19 (0-50) U/L Alkaline Phosphatase 92 (38-126) U/L Serum Total Protein 5.2 L (6.3-8.2) g/dL Albumin 2.7 L (3.5-5.0) g/dL Urine Color (Yellow) Urine Appearance (Clear) Urine pH (4.6-8.0) Ur Specific [place] (1.005-1.030) Urine Protein (Negative) Urine Glucose (UA) (Negative) mg/dL Urine Ketones (Negative) Urine Blood (Negative) Urine Nitrite (Negative) Urine Bilirubin (Negative) Urine Urobilinogen (0.2) mg/dL Ur Leukocyte Esterase (Negative) U Hyaline Cast (Auto) (0-2) /LPF Urine Microscopic RBC (0-5) /HPF Urine Microscopic WBC (0-5) /HPF Ur Epithelial Cells (None Seen) /HPF Urine Bacteria (None Seen) /HPF Urine Culture Reflexed (NO) Urine Opiates Level (NEGATIVE) Ur Methadone (NEGATIVE) Urine Barbiturates (NEGATIVE) Ur Phencyclidine (PCP) (NEGATIVE) Urine Amphetamine (NEGATIVE) U Benzodiazepine Level (NEGATIVE) Urine Cocaine (NEGATIVE) Urine Marijuana (THC) (NEGATIVE) Ethyl Alcohol (0-10) mg/dL Influenza Type A Ag (NEGATIVE) Influenza Type B Ag (NEGATIVE) RSV (PCR) (Negative) SARS-CoV-2 (PCR) (NEGATIVE) 10/28/22 Range/Units 07:07 WBC (4.0-10.5) x10^3/uL RBC (4.1-5.6) x10^6/uL Hgb (12.5-18.0) g/dL Hct (42-50) % MCV (78-100) fL MCH (26-32) pg MCHC (32-36) g/dL RDW (11.5-14.0) % Plt Count (150-450) x10^3/uL MPV (7.5-11.0) fL Gran % (36.0-66.0) % Immature Gran % (Auto) (0.00-0.4) % Nucleat RBC Rel Count (0.00-0.1) % Eos # (Auto) (0-0.5) x10^3/uL Immature Gran # (Auto) (0.00-0.03) x10^3u/L Absolute Lymphs (auto) (1.0-4.6) x10^3/uL Absolute Monos (auto) (0.0-1.3) x10^3/uL Absolute Nucleated RBC (0.00-0.01) x10^3u/L Lymphocytes % (24.0-44.0) % Monocytes % (0.0-12.0) % Eosinophils % (0.00-5.0) % Basophils % (0.0-0.4) % Absolute Granulocytes (1.4-6.9) x10^3/uL Basophils # (0-0.4) x10^3/uL Sodium (137-145) mmol/L Potassium (3.5-5.1) mmol/L Chloride (98-107) mmol/L Carbon Dioxide (22-30) mmol/L Anion Gap (5-15) MEQ/L BUN (9-20) mg/dL Creatinine (0.66-1.25) mg/dL Estimated GFR ML/MIN Glucose (74-106) mg/dL POC Glucometer 182 H (74 to 106) mg/dL Calcium (8.4-10.2) mg/dL Total Bilirubin (0.2-1.3) mg/dL AST (17-59) U/L ALT (0-50) U/L Alkaline Phosphatase (38-126) U/L Serum Total Protein (6.3-8.2) g/dL Albumin (3.5-5.0) g/dL Urine Color (Yellow) Urine Appearance (Clear) Urine pH (4.6-8.0) Ur Specific [place] (1.005-1.030) Urine Protein (Negative) Urine Glucose (UA) (Negative) mg/dL Urine Ketones (Negative) Urine Blood (Negative) Urine Nitrite (Negative) Urine Bilirubin (Negative) Urine Urobilinogen (0.2) mg/dL Ur Leukocyte Esterase (Negative) U Hyaline Cast (Auto) (0-2) /LPF Urine Microscopic RBC (0-5) /HPF Urine Microscopic WBC (0-5) /HPF Ur Epithelial Cells (None Seen) /HPF Urine Bacteria (None Seen) /HPF Urine Culture Reflexed (NO) Urine Opiates Level (NEGATIVE) Ur Methadone (NEGATIVE) Urine Barbiturates (NEGATIVE) Ur Phencyclidine (PCP) (NEGATIVE) Urine Amphetamine (NEGATIVE) U Benzodiazepine Level (NEGATIVE) Urine Cocaine (NEGATIVE) Urine Marijuana (THC) (NEGATIVE) Ethyl Alcohol (0-10) mg/dL Influenza Type A Ag (NEGATIVE) Influenza Type B Ag (NEGATIVE) RSV (PCR) (Negative) SARS-CoV-2 (PCR) (NEGATIVE) Micro Results-Entire Visit: Microbiology 10/27/22 14:58 Urine Culture - Preliminary Catherized NO GROWTH TO DATE Accuchecks Date 10/28/22 Date 10/27/22 Date 10/27/22 Time 23:00 Time 01:41 - Radiology Exams Ordered Rad Exams-Entire Visit: Radiology Procedures Category Date Time Status CT ANGIOGRAPHY NECK [CT] Stat Exams 10/27/22 15:40 Completed ECHO W/2D AND DOPPLER [US] Stat Exams 10/27/22 21:18 Ordered HEAD WITHOUT CONTRAST [CT] Stat Exams 10/27/22 14:23 Completed MRI BRAIN W & W/O CONTRAST [MRI] Stat Exams 10/27/22 15:40 Completed - Procedures and Test Procedures and Tests throughout Hospitalization: Therapy Orders & Screens 10/27/22 21:18 PT Eval & Treat ( Order) ONCE Reason for Eval:: Aphasia, fall risk. Eval for range of motion, transferring and strengthening Diagnosis: Aphasia, fall risk Speech Therapy Eval & Treat [ST Eval & Treat ( Order)] .as ordered Comment: Physician Instructions: Reason For Exam: Evaluate: Yes Treat: Yes Reason for Eval: Patient aphasic. Clinical evidence of a stroke Diagnosis: Aphasic 10/27/22 23:39 Oxygen Nasal Cannula 2 lpm Comment: Diagnosis: Aphasic 10/28/22 08:00 OT Screen per Nursing Assess ONCE Comment: Protocol Order Physician Instructions: Greater than 3 points order OT Admission Screening Reason For Exam: Triggered on Admission Diagnosis: Aphasic Open Wound/Cellutlitis/Pressure Ulcers: No Acute Fx/ORIF/Change in wt bearing status: No Severe MUSCULOSKELETAL pain: No ADL Dysfunction: Yes Acute CVA w/Hemiparesis/Hemiplegia: No Decreased Functional Mobility/Strength: Yes Sprain/Strain: No Acute Post-op Mobility Dysfunction: No Total Points: 4 PT Screen per Nursing Assess ONCE Comment: Protocol Order Physician Instructions: Greater than 3 points order PT Admission Screenin Reason For Exam: Triggered on Admission Diagnosis: Aphasic Open Wound/Cellutlitis/Pressure Ulcers: No Acute Fx/ORIF/Change in wt bearing status: No Severe MUSCULOSKELETAL pain: No ADL Dysfunction: Yes Acute CVA w/Hemiparesis/Hemiplegia: No Decreased Functional Mobility/Strength: Yes Sprain/Strain: No Acute Post-op Mobility Dysfunction: No Total Points: 4 Smoking Cessation Education ONCE Comment: Diagnosis: Aphasic Smoking Status: Current every day smoker How long have you smoked: 53 Have you smoked in the past 12 months: Yes Approximately how many cigarettes per day: 3-4 Do you dip or chew tobacco: No If,Former Smoker,when did you quit: 10/03/18 - Discharge Disposition: Home, Self-Care Condition: Stable Prescriptions: Continue Metformin HCl [Glucophage] 1,000 mg PO BID Losartan Potassium 50 mg [Cozaar 50 MG] 50 mg PO DAILY Furosemide 40 mg [Lasix 40 MG] 1 tab PO DAILY Ezetimibe 10 mg PO DAILY carvediloL [Carvedilol] 25 mg PO BID Hydrochlorothiazide 25 mg [hydroDIURIL 25 MG] 25 mg PO DAILY Clopidogrel Bisulfate [PLAVIX Tablet] 75 mg PO DAILY Allopurinol 100 mg [Zyloprim 100 mg] 100 mg PO BID Aspirin EC 81 mg [Ecotrin 81 mg] 1 tab PO DAILY Hydrocodone/Acetaminophen [Hydrocodone-Acetamin 5-325 mg] 1 tab PO Q6HPRN PRN #20 tablet MDD 4 PRN Reason: Pain Levothyroxine Sodium 50 Mcg [Synthroid 50 Mcg] 50 mcg PO DAILY #30 tablet Follow up with: NICCI CLAROS MD [Primary Care Provider] -
[2022-10-28] MEDS ORDERED: Ecotrin 325 MG PO SCH (10:00)
--- NOTE | 2022-10-28 12:13 | XRAY ---
Indication: Hypoxia. Comparison: July 22, 2022 Portable chest less inflated with new moderate bibasilar infiltrates/atelectasis/effusions, left greater than right. Heart borderline enlarged. Again incidental CABG and tiny calcified granulomas. Bony thorax intact again with osteopenia and degenerative changes.
[2022-10-28] MEDS ORDERED: Lasix 20 MG/2 ML ONE (14:13)
[2022-10-28 17:25] VITALS: BP 154/79; PULSE 66; O2SAT 90
--- NOTE | 2022-10-29 13:44 | ECHO ---
DATE OF PROCEDURE: 10/28/2022 CLINICAL INFORMATION: Aphasia with clinical stroke. The M-mode 2D, and Doppler echocardiogram including color flow Doppler shows the left ventricle is moderately dilated with a dimension of 6.7 cm. No thrombus is noted. There is mild asymmetric left ventricular hypertrophy involving the septum. The left ventricular systolic function is mildly decreased. The ejection fraction is calculated to be 46%. There is evidence of possible impaired left ventricular relaxation. The right ventricle is grossly normal. The left atrium is moderately dilated. The interatrial septum is intact. The right atrium is normal. The aortic valve opens well. There is mild sclerosis present. There is no aortic regurgitation. There is mitral valve leaflet thickening associated with mild mitral regurgitation. There is mild tricuspid regurgitation. The right ventricular systolic pressure is elevated at 42 mm of Mercury. The pulmonic valve is not well visualized. The aortic root is normal. There is no pericardial effusion present. IMPRESSION: 1) NO EVIDENCE OF THROMBUS IN THE LEFT VENTRICLE OR LEFT ATRIUM. 2) MODERATE LEFT VENTRICULAR DILATATION. 3) MILD DECREASE IN LEFT VENTRICULAR SYSTOLIC FUNCTION. 4) POSSIBLE IMPAIRED LEFT VENTRICULAR RELAXATION. 5) MODERATE LEFT ATRIAL DILATATION. 6) MILD MITRAL REGURGITATION. 7) MILD TRICUSPID REGURGITATION. 8) MODERATE PULMONARY HYPERTENSION.
[2022-10-29] MEDS ORDERED: Lasix 20 MG/2 ML IV ONE (14:06)
== END 2022-10-28 18:15 | disposition home or self-care (01) ==
LOC: ED 14:21 → MED SURG 20:53 → INTOOBSV 20:53
PROVIDERS: ADMIT Family Medicine; ATTEND Family Medicine
DX: G45.9 Transient cerebral ischemic attack, unspecified (principal); E11.59 Type 2 diabetes mellitus with other circulatory complications; I25.10 Atherosclerotic heart disease of native coronary artery without angina pectoris; I10 Essential (primary) hypertension; D64.9 Anemia, unspecified; E78.5 Hyperlipidemia, unspecified; M79.622 Pain in left upper arm; Z79.01 Long term (current) use of anticoagulants; Z79.899 Other long term (current) drug therapy; Z20.828 Contact with and (suspected) exposure to other viral communicable diseases; Z72.0 Tobacco use; Z91.81 History of falling
CPT/HCPCS: 0241U; 36000; 36415; 51702; 70450; 70498; 70553; 71045; 71250; 71260; 72125; 73562; 74176; 80053; 80061; 80307; 81001; 82947; 83036; 83721; 84146; 84443; 84484; 84550; 85025; 85379; 85610; 85730; 87086; 93005; 93041; 93268; 93306; 93971; 94760; 94762; 97161; 97162; 99284; 99285; 99291; G0378; G0480; J1650; J1817; J1940; A9270-GY

== ENCOUNTER 2022-11-04 18:07 | Observation (INO) | payer MEDICARE, OTHER ==
[2022-11-04] MEDS ORDERED: SUBLIMAZE 100 MCG/2 ML IV ONE (18:21)
[2022-11-04] MEDS ORDERED: Zofran 4 MG/2 ML VIAL IV ONE (18:21)
[2022-11-04] MEDS ORDERED: Zofran 4 MG/2 ML VIAL ONE (18:26)
[2022-11-04] MEDS ORDERED: SUBLIMAZE 100 MCG/2 ML ONE (18:27)
--- NOTE | 2022-11-04 18:31 | ERPHSYRPT ---
- History of Present Illness Source: patient Exam Limitations: no limitations Patient Subjective Stated Complaint: PT states "I was trying to go to the bathroom and my chest started to hurt really bad." Triage Nursing Assessment: Pt presented alert and oriented X 3, skin pwd. Pt able to speak in clear full sentences pt in no apparent respiratory distress. PT laying comfortably on the bed. Hx Tetanus, Diphtheria Vaccination/Date Given: Yes Hx Influenza Vaccination/Date Given: Yes Hx Pneumococcal Vaccination/Date Given: Yes Immunizations Up to Date: Yes <ELLY WEEMS - Last Filed: 11/04/22 18:39> <CAITLYN CABRALES - Last Filed: 11/04/22 22:04> - History of Present Illness Time Seen by Provider: 11/04/22 18:12 Physician History: Patient is here with chest pain. Left-sided. Started just prior to arrival. Patient has a long cardiac history. No recent falls or trauma. Several cardiac risk factors. Patient stated he felt like he needed to use the bathroom. Was unable to poop. Patient got nitro and aspirin in the ambulance prior to arrival. States that this did help his symptoms. Patient does have a history of cardiac issues and diabetes. (ELLY WEEMS) Allergies/Adverse Reactions: gabapentin Adverse Reaction (Verified 10/27/22 21:32) "got kind of loopy" Home Medications: Metformin HCl [Glucophage] 1,000 mg PO BID 01/22/17 [History] Losartan Potassium 50 mg [Cozaar 50 MG] 50 mg PO DAILY 05/26/19 [History] Furosemide 40 mg [Lasix 40 MG] 1 tab PO DAILY 07/18/19 [History] Ezetimibe 10 mg PO DAILY 04/26/20 [History] Clopidogrel Bisulfate [PLAVIX Tablet] 75 mg PO DAILY 02/10/21 [History] Hydrochlorothiazide 25 mg [hydroDIURIL 25 MG] 25 mg PO DAILY 02/10/21 [History] carvediloL [Carvedilol] 25 mg PO BID 02/10/21 [History] Allopurinol 100 mg [Zyloprim 100 mg] 100 mg PO BID 06/06/21 [History] Aspirin EC 81 mg [Ecotrin 81 mg] 1 tab PO DAILY 10/23/22 [History] Travel Risk - International Travel Have you traveled outside of the country in past 3 weeks: No - Coronavirus Screening Are you exhibiting any of the following symptoms?: No Close contact with a COVID-19 positive Pt in past 14-21 Days: No - Vaccine Status Have you recieved a Covid-19 vaccination: No <ELLY WEEMS - Last Filed: 11/04/22 18:39> - Review of Systems Constitutional: No Fever, No Chills Eyes: No Symptoms Ears, Nose, & Throat: No Symptoms Respiratory: No Cough, No Dyspnea Cardiac: Chest Pain, No Edema, No Syncope Abdominal/Gastrointestinal: No Abdominal Pain, No Nausea, No Vomiting, No Diarrhea Genitourinary Symptoms: No Dysuria Musculoskeletal: No Back Pain, No Neck Pain Skin: No Rash Neurological: No Dizziness, No Focal Weakness, No Sensory Changes Psychological: No Symptoms Endocrine: No Symptoms All Other Systems: Reviewed and Negative <ELLY WEEMS - Last Filed: 11/04/22 18:39> - Past Medical History Pertinent Past Medical History: Yes Neurological History: No Pertinent History ENT History: No Pertinent History Cardiac History: Angina, Coronary Artery Disease, High Cholesterol, Hyp ertension, Myocardial Infarction ([place]) Respiratory History: COPD Endocrine Medical History: Diabetes Type II Musculoskeletal History: Osteoarthritis GI Medical History: No Pertinent History History: No Pertinent History Psycho-Social History: No Pertinent History Male Reproductive Disorders: No Pertinent History Other Medical History: fractured ribs, anemia, gout - Past Surgical History Past Surgical History: Yes Neuro Surgical History: No Pertinent History Cardiac: CABG, Other Respiratory: Chest Surgery Gastrointestinal: No Pertinent History Genitourinary: No Pertinent History Musculoskeletal: Orthopedic Surgery Male Surgical History: No Pertinent History Other Surgical History: umbilical, triple bypass, L shoulder - Social History Smoking Status: Current every day smoker How long have you smoked: 53 Exposure to second hand smoke: Yes Drug Use: none Patient Lives Alone: Yes <ELLY WEEMS - Last Filed: 11/04/22 18:39> - Physical Exam General Appearance: no apparent distress, alert Eye Exam: PERRL/EOMI, eyes nml inspection Ears, Nose, Throat Exam: normal ENT inspection, TMs normal, pharynx normal, moist mucous membranes Neck Exam: normal inspection, non-tender, supple, full range of motion Respiratory Exam: normal breath sounds, lungs clear, No respiratory distress Cardiovascular Exam: regular rate/rhythm, normal heart sounds, normal peripheral pulses Gastrointestinal/Abdomen Exam: soft, normal bowel sounds, No tenderness, No mass Back Exam: normal inspection, normal range of motion, No CVA tenderness, No vertebral tenderness Extremity Exam: normal inspection, normal range of motion, pelvis stable Neurologic Exam: alert, oriented x 3, cooperative, normal mood/affect, nml cerebellar function, nml station & gait, sensation nml, No motor deficits Skin Exam: normal color, warm, dry, No rash Lymphatic Exam: No adenopathy SpO2: 94 <ELLY WEEMS - Last Filed: 11/04/22 18:39> - Nursing Vital Signs Nursing Vital Signs: Initial Vital Signs Temperature 98.2 F 11/04/22 18:12 Pulse Rate 75 11/04/22 18:12 Respiratory Rate 20 11/04/22 18:12 Blood Pressure 137/74 11/04/22 18:12 O2 Sat by Pulse Oximetry 94 L 11/04/22 18:12 Pain Scale Pain Intensity 6 - Course Nursing assessment & vital signs reviewed: Yes EKG Interpreted by Me: Sinus Rhythm <ELLY WEEMS - Last Filed: 11/04/22 18:39> - Course Nursing assessment & vital signs reviewed: Yes EKG Interpreted by Me: RATE (76), NORMAL AXIS, Left Bundle Branch Block, ST Elev (Due to interventricular conduction delay), Non-specific ST Changes, Other - Radiology Exams Chest X-ray Interpretation: Reviewed by me - CT Exams Chest CT Interpretation: Other (CT of the chest showed no pulmonary emboli no abdominal aortic dissection no acute abnormality) Abdomen/Pelvis CT Interpretation: Other (No acute findings.) <CAITLYN CABRALES - Last Filed: 11/04/22 22:04> Ordered Tests: Active Orders 24 hr Category Date Time Status Affirmative Action Officer STAT Care 11/04/22 18:21 Active EKG-ER Only STAT Care 11/04/22 18:21 Active IV Insertion STAT Care 11/04/22 18:21 Active CHEST 1 VIEW (PORTABLE) Stat Exams 11/04/22 18:24 Taken CTA ABD/PEL W AND/OR W/O CONTR [CT] Stat Exams 11/04/22 19:30 Taken CTA CHEST W AND/OR WO [CT] Stat Exams 11/04/22 19:30 Taken BMP Stat Lab 11/04/22 18:50 Completed CBC W DIFF Stat Lab 11/04/22 18:50 Completed CK-Creatinine Phosphokinase Stat Lab 11/04/22 18:50 Completed D-DIMER QUANTITATIVE Stat Lab 11/04/22 18:50 Completed Hepatic Function Panel Stat Lab 11/04/22 18:50 Completed NT PRO BNP Stat Lab 11/04/22 18:50 Completed PROTIME WITH INR Stat Lab 11/04/22 18:50 Completed TROPONIN Q4H Lab 11/04/22 18:50 Completed TROPONIN Q4H Lab 11/04/22 22:30 Ordered TROPONIN Q4H Lab 11/05/22 02:30 Ordered TSH [TSH, 3RD Generation] Stat Lab 11/04/22 18:50 Completed Medication Summary Discontinued Medications Generic Name Dose Route Start Last Admin Trade Name Freq PRN Reason Stop Dose Admin Fentanyl Citrate 50 mcg 11/04/22 18:21 11/04/22 18:33 Fentanyl Citrate 100 Mcg/2 Ml* Vial IV 11/04/22 18:22 50 mcg STAT ONE Administration Fentanyl Citrate Confirm 11/04/22 18:27 Fentanyl Citrate 100 Mcg/2 Ml* Vial Administered 11/04/22 18:28 Dose 100 mcg .ROUTE .STK-MED ONE Ondansetron HCl 4 mg 11/04/22 18:21 11/04/22 18:31 Ondansetron Hcl 4 Mg/2 Ml Vial IV 11/04/22 18:22 4 mg STAT ONE Administration Ondansetron HCl Confirm 11/04/22 18:26 Ondansetron Hcl 4 Mg/2 Ml Vial Administered 11/04/22 18:27 Dose 4 mg .ROUTE .STK-MED ONE Lab/Rad Data: Laboratory Result Diagrams 11/04/22 18:50 11/04/22 18:50 Laboratory Results 11/04/22 11/04/22 11/04/22 Range/Units 18:50 18:50 18:50 WBC (4.0-10.5) x10^3/uL RBC (4.1-5.6) x10^6/uL Hgb (12.5-18.0) g/dL Hct (42-50) % MCV (78-100) fL MCH (26-32) pg MCHC (32-36) g/dL RDW (11.5-14.0) % Plt Count (150-450) x10^3/uL MPV (7.5-11.0) fL Gran % (36.0-66.0) % Immature Gran % (Auto) (0.00-0.4) % Nucleat RBC Rel Count (0.00-0.1) % Eos # (Auto) (0-0.5) x10^3/uL Immature Gran # (Auto) (0.00-0.03) x10^3u/L Absolute Lymphs (auto) (1.0-4.6) x10^3/uL Absolute Monos (auto) (0.0-1.3) x10^3/uL Absolute Nucleated RBC (0.00-0.01) x10^3u/L Lymphocytes % (24.0-44.0) % Monocytes % (0.0-12.0) % Eosinophils % (0.00-5.0) % Basophils % (0.0-0.4) % Absolute Granulocytes (1.4-6.9) x10^3/uL Basophils # (0-0.4) x10^3/uL PT 10.7 (9.4-12.5) SECONDS INR 1.01 (0.8-3.0) D-Dimer 2.80 H* (0.0-0.50) mg/L Sodium (137-145) mmol/L Potassium (3.5-5.1) mmol/L Chloride (98-107) mmol/L Carbon Dioxide (22-30) mmol/L Anion Gap (5-15) MEQ/L BUN (9-20) mg/dL Creatinine (0.66-1.25) mg/dL Estimated GFR ML/MIN Glucose (74-106) mg/dL Calcium (8.4-10.2) mg/dL Total Bilirubin (0.2-1.3) mg/dL Direct Bilirubin (0.0-0.4) mg/dL AST (17-59) U/L ALT (0-50) U/L Alkaline Phosphatase (38-126) U/L Creatine Kinase (55-170) U/L Troponin I 0.022 (0.000-0.034) ng/mL NT-Pro-B Natriuret Pep (0-900) pg/mL Serum Total Protein (6.3-8.2) g/dL Albumin (3.5-5.0) g/dL TSH 3rd Generation 7.770 H (0.47-4.68) mIU/L 11/04/22 11/04/22 Range/Units 18:50 18:50 WBC 6.1 (4.0-10.5) x10^3/uL RBC 3.59 L (4.1-5.6) x10^6/uL Hgb 10.3 L (12.5-18.0) g/dL Hct 33.8 L (42-50) % MCV 94.2 (78-100) fL MCH 28.7 (26-32) pg MCHC 30.5 L (32-36) g/dL RDW 14.3 H (11.5-14.0) % Plt Count 195 (150-450) x10^3/uL MPV 11.6 H (7.5-11.0) fL Gran % 76.3 H (36.0-66.0) % Immature Gran % (Auto) 0.3 (0.00-0.4) % Nucleat RBC Rel Count 0.0 (0.00-0.1) % Eos # (Auto) 0.08 (0-0.5) x10^3/uL Immature Gran # (Auto) 0.02 (0.00-0.03) x10^3u/L Absolute Lymphs (auto) 1.01 (1.0-4.6) x10^3/uL Absolute Monos (auto) 0.33 (0.0-1.3) x10^3/uL Absolute Nucleated RBC 0.00 (0.00-0.01) x10^3u/L Lymphocytes % 16.5 L (24.0-44.0) % Monocytes % 5.4 (0.0-12.0) % Eosinophils % 1.3 (0.00-5.0) % Basophils % 0.2 (0.0-0.4) % Absolute Granulocytes 4.66 (1.4-6.9) x10^3/uL Basophils # 0.01 (0-0.4) x10^3/uL PT (9.4-12.5) SECONDS INR (0.8-3.0) D-Dimer (0.0-0.50) mg/L Sodium 140 (137-145) mmol/L Potassium 4.5 (3.5-5.1) mmol/L Chloride 110 H (98-107) mmol/L Carbon Dioxide 28 (22-30) mmol/L Anion Gap 6.9 (5-15) MEQ/L BUN 27 H (9-20) mg/dL Creatinine 1.24 (0.66-1.25) mg/dL Estimated GFR > 60.0 ML/MIN Glucose 144 H (74-106) mg/dL Calcium 8.3 L (8.4-10.2) mg/dL Total Bilirubin 0.20 (0.2-1.3) mg/dL Direct Bilirubin 0.2 (0.0-0.4) mg/dL AST 22 (17-59) U/L ALT 18 (0-50) U/L Alkaline Phosphatase 98 (38-126) U/L Creatine Kinase 77 (55-170) U/L Troponin I (0.000-0.034) ng/mL NT-Pro-B Natriuret Pep 4980 H (0-900) pg/mL Serum Total Protein 5.7 L (6.3-8.2) g/dL Albumin 3.1 L (3.5-5.0) g/dL TSH 3rd Generation (0.47-4.68) mIU/L - Progress Progress: improved Counseled pt/family regarding: lab results, diagnosis, need for follow-up <ELLY WEEMS - Last Filed: 11/04/22 18:39> - Progress Progress: improved Discussed with DrCassandra: Misti Will see patient in: hospital (observation) <CAITLYN CABRALES - Last Filed: 11/04/22 22:04> - Progress Progress Note: 11/04/22 18:41 Differential diagnosis includes STEMI, NSTEMI, aortic dissection, pneumonia, electrolyte abnormality. -Plan for basic labs, EKG. EKG shows sinus rhythm without ST changes. D-dimer checked. Either way, I recommend patient have a CTA of the chest abdomen pelv is. We will be looking for aortic dissection or other chest pathology. I discussed all this with oncoming physician, Dr. Cabrales. He will follow-up on labs and imaging. Likely need to be admitted at least for cardiac rule out. (ELLY WEEMS) - Departure Critical Care Time: No <ELLY WEEMS - Last Filed: 11/04/22 18:39> - Departure Departure Disposition: Observation Critical Care Time: No <CAITLYN CABRALES - Last Filed: 11/04/22 22:04> - Departure Clinical Impression: Chest pain Condition: Stable Referrals: NICCI CLAROS MD [Primary Care Provider] - Follow up/PCP as directed Instructions: Angina (DC)
[2022-11-04 18:58] LABS: Absolute Neutrophil Ct (ANC) 4.66 x10^3/uL (1.4-6.9); BASOPHIL % 0.2 % (0.0-0.4); Basophil (Absolute #) 0.01 x10^3/uL (0-0.4); Eosinophil % 1.3 % (0.00-5.0); Eosinophil (Absolute #) 0.08 x10^3/uL (0-0.5); Hematocrit 33.8 % (42-50); Hemoglobin 10.3 g/dL (12.5-18.0); IMMATURE GRAN # 0.02 x10^3u/L (0.00-0.03); IMMATURE GRAN % 0.3 % (0.00-0.4); Lymphocyte (Absolute #) 1.01 x10^3/uL (1.0-4.6); Lymphocytes % 16.5 % (24.0-44.0); Mean Cell Volume 94.2 fL (78-100); Mean Corpuscular Hemoglobin 28.7 pg (26-32); Mean Corpuscular Hgb Concent. 30.5 g/dL (32-36); Mean Platelet Volume 11.6 fL (7.5-11.0); Monocyte (Absolute #) 0.33 x10^3/uL (0.0-1.3); Monocytes % 5.4 % (0.0-12.0); Neutrophil % 76.3 % (36.0-66.0); Platelet Count 195 x10^3/uL (150-450); Red Blood Count 3.59 x10^6/uL (4.1-5.6); Red Cell Distribution Width 14.3 % (11.5-14.0); White Blood Count 6.1 x10^3/uL (4.0-10.5)
[2022-11-04 19:21] LABS: INR 1.01 (0.8-3.0); PROTIME 10.7 SECONDS (9.4-12.5)
[2022-11-04 19:22] LABS: ALBUMIN 3.1 g/dL (3.5-5.0); ALKALINE PHOSPHATASE 98 U/L (38-126); ANION GAP 6.9 MEQ/L (5-15); BLOOD UREA NITROGEN 27 mg/dL (9-20); CHLORIDE 110 mmol/L (98-107); CK-Creatinine Phosphokinase 77 U/L (55-170); Calcium 8.3 mg/dL (8.4-10.2); Carbon Dioxide 28 mmol/L (22-30); Creatinine 1 1.24 mg/dL (0.66-1.25); Direct Bilirubin 0.2 mg/dL (0.0-0.4); EST GLOMERULAR FILTRATION RATE > 60.0 ML/MIN; Glucose 144 mg/dL (74-106); NT PRO BNP 4980 pg/mL (0-900); Potassium 4.5 mmol/L (3.5-5.1); SGOT/AST 22 U/L (17-59); SGPT/ALT 18 U/L (0-50); SODIUM 140 mmol/L (137-145); Total Protein 5.7 g/dL (6.3-8.2)
[2022-11-04 19:35] LABS: D-DIMER QUANTITATIVE 2.8 mg/L (0.0-0.50)
[2022-11-04] MEDS ORDERED: HOLD METFORMIN PRODUCTS FOR 48 HOURS MC SCH (20:00)
[2022-11-04] MEDS ORDERED: Zofran 4 MG/2 ML VIAL IV PRN (22:04)
[2022-11-04] MEDS ORDERED: MILK OF MAGNESIA 30 ML PO PRN (22:04)
[2022-11-04] MEDS ORDERED: TYLENOL 325 MG PO PRN (22:04)
[2022-11-04] MEDS ORDERED: MORPHINE SULFATE 2 MG INJ IV PRN (22:04)
[2022-11-04] MEDS ORDERED: Senokot-S Tablet PO PRN (22:04)
[2022-11-04] MEDS ORDERED: Nitrostat 0.4 MG Tablet SL PRN (22:04)
[2022-11-04] MEDS ORDERED: MAALOX ES 30 ML UNIT DOSE PO PRN (22:04)
[2022-11-04] MEDS ORDERED: Sodium Chloride 0.9% 500 ML 500 ML IV SCH (22:15)
[2022-11-04 23:08] LABS: INFLUENZA A NEGATIVE (NEGATIVE); INFLUENZA B NEGATIVE (NEGATIVE); RESPIRATORY SYNCTIAL VIRUS NEGATIVE (Negative); SARS-CoV-2 Xpert Express NEGATIVE (NEGATIVE)
[2022-11-04] MEDS ORDERED: COREG 12.5 MG ONE (23:50)
[2022-11-05] MEDS ORDERED: APRESOLINE 20 MG/ML INJ IV ONE (02:01)
[2022-11-05] MEDS ORDERED: COREG 12.5 MG ONE (02:10)
[2022-11-05] MEDS ORDERED: Lantus Insulin ONE (02:11)
[2022-11-05] MEDS ORDERED: NORCO 5/325 MG PO PRN (07:15)
--- NOTE | 2022-11-05 07:50 | PCM.SSS ---
History of Present Illness - Chief Complaint Chief Complaint: chest pain History of Present Illness: is a 67 year old male who presented to the ER with chest pain, he reports it began at rest. It has resolved since admission, now he just complains of feeling stiff. cta chest was negative for PE in ER. - Review of Systems Constitutional: No Fever, No Chills Respiratory: No Cough, No Short Of Breath Cardiac: Chest Pain (resolved), No Edema Abdominal/Gastrointestinal: No Abdominal Pain, No Nausea, No Vomiting, No Diarrhea Genitourinary Symptoms: No Dysuria Skin: No Rash Neurological: No Dizziness, No Focal Weakness, No Sensory Changes All Other Systems: Reviewed and Negative Medications & Allergies Home Medications: Home Medication List Losartan Potassium 50 mg [Cozaar 50 MG] 50 mg PO DAILY 05/26/19 [History Confirmed 11/05/22] Furosemide 40 mg [Lasix 40 MG] 40 mg PO DAILY 07/18/19 [History Confirmed 11/05/22] Ezetimibe 10 mg PO DAILY 04/26/20 [History Confirmed 11/05/22] Clopidogrel Bisulfate [PLAVIX Tablet] 75 mg PO DAILY 02/10/21 [History Confirmed 11/05/22] Hydrochlorothiazide 25 mg [hydroDIURIL 25 MG] 25 mg PO DAILY 02/10/21 [History Confirmed 11/05/22] carvediloL [Carvedilol] 25 mg PO BID 02/10/21 [History Confirmed 11/05/22] Allopurinol 100 mg [Zyloprim 100 mg] 100 mg PO BID 06/06/21 [History Confirmed 11/05/22] Aspirin EC 81 mg [Ecotrin 81 mg] 81 mg PO DAILY 10/23/22 [History Confirmed 11/05/22] Hydrocodone/Acetaminophen [Hydrocodone-Acetamin 5-325 mg] 1 tab PO Q6HPRN PRN #20 tablet MDD 4 10/26/22 [Rx Confirmed 11/04/22] Levothyroxine Sodium 50 Mcg [Synthroid 50 Mcg] 50 mcg PO DAILY #30 tablet 10/26/22 [Rx Confirmed 11/05/22] Furosemide 40 mg [Lasix 40 MG] 40 mg PO 1400 PRN 11/05/22 [History Confirmed 11/05/22] Insulin Glargine,Hum.rec.anlog [Lantus] 20 unit SQ QHS 11/05/22 [History Confirmed 11/05/22] Metformin HCl [Metformin HCl ER] 1,000 mg PO BID 11/05/22 [History Confirmed 11/05/22] Allergies/Adverse Reactions: Allergies Allergy/AdvReac Type Severity Reaction Status Date / Time gabapentin AdvReac Verified 10/27/22 21:32 - Past Medical History Past Medical History: Yes Neurological History: No Pertinent History ENT History: No Pertinent History Cardiac History: Angina, Coronary Artery Disease, High Cholesterol, Hypertension, Myocardial Infarction (NH) Respiratory History: COPD Endocrine Medical History: Diabetes Type II Musculoskelatal History: Osteoarthritis GI Medical History: No Pertinent History History: No Pertinent History Pyscho-Social History: No Pertinent History Male Reproductive Disorders: No Pertinent History Comment: fractured ribs, anemia, gout - Past Surgical History Past Surgical History: Yes Neuro Surgical History: No Pertinent History Cardiac History: CABG, Other Respiratory Surgery: Chest Surgery GI Surgical History: No Pertinent History Genitourinary Surgical Hx: No Pertinent History Musculskeletal Surgical Hx: Orthopedic Surgery Male Surgical History: No Pertinent History Other Surgical History: umbilical, triple bypass, L shoulder - Social History Smoking Status: Former smoker How long have you smoked: 53 Exposure to second hand smoke: Yes Alcohol: None Drug Use: none - Physical Exam Vital Signs: Vital Signs - 24 hr Temp Pulse Pulse Resp BP Pulse Ox 11/05/22 07:34 97.9 F 60 16 169/81 97 11/05/22 05:34 95 11/05/22 03:34 96.9 F 56 L 16 145/67 97 11/05/22 02:04 97.5 F 57 L 16 160/75 95 11/05/22 00:49 97.8 F 65 20 187/86 94 L 11/05/22 00:16 63 20 163/89 96 11/04/22 23:00 64 18 188/96 95 11/04/22 22:14 62 21 176/85 96 11/04/22 21:57 60 20 169/89 96 11/04/22 20:48 59 L 19 181/88 93 L 11/04/22 19:22 67 23 145/70 93 L 11/04/22 18:42 94 L 11/04/22 18:12 98.2 F 75 76 20 137/74 94 L General Appearance: no apparent distress Neurologic Exam: alert, oriented x 3, cooperative Respiratory Exam: normal breath sounds, lungs clear, No respiratory distress Cardiovascular Exam: regular rate/rhythm, normal heart sounds, normal peripheral pulses Gastrointestinal/Abdomen Exam: soft, normal bowel sounds, No tenderness, No mass Extremity Exam: normal inspection, normal range of motion, pelvis stable Skin Exam: normal color, warm, dry, No rash Results - Labs Lab/Micro Results: Lab Results-Last 24 Hours 11/04/22 11/04/22 11/04/22 Range/Units 18:50 18:50 18:50 WBC 6.1 (4.0-10.5) x10^3/uL RBC 3.59 L (4.1-5.6) x10^6/uL Hgb 10.3 L (12.5-18.0) g/dL Hct 33.8 L (42-50) % MCV 94.2 (78-100) fL MCH 28.7 (26-32) pg MCHC 30.5 L (32-36) g/dL RDW 14.3 H (11.5-14.0) % Plt Count 195 (150-450) x10^3/uL MPV 11.6 H (7.5-11.0) fL Gran % 76.3 H (36.0-66.0) % Immature Gran % (Auto) 0.3 (0.00-0.4) % Nucleat RBC Rel Count 0.0 (0.00-0.1) % Eos # (Auto) 0.08 (0-0.5) x10^3/uL Immature Gran # (Auto) 0.02 (0.00-0.03) x10^3u/L Absolute Lymphs (auto) 1.01 (1.0-4.6) x10^3/uL Absolute Monos (auto) 0.33 (0.0-1.3) x10^3/uL Absolute Nucleated RBC 0.00 (0.00-0.01) x10^3u/L Lymphocytes % 16.5 L (24.0-44.0) % Monocytes % 5.4 (0.0-12.0) % Eosinophils % 1.3 (0.00-5.0) % Basophils % 0.2 (0.0-0.4) % Absolute Granulocytes 4.66 (1.4-6.9) x10^3/uL Basophils # 0.01 (0-0.4) x10^3/uL PT 10.7 (9.4-12.5) SECONDS INR 1.01 (0.8-3.0) D-Dimer 2.80 H* (0.0-0.50) mg/L Sodium 140 (137-145) mmol/L Potassium 4.5 (3.5-5.1) mmol/L Chloride 110 H (98-107) mmol/L Carbon Dioxide 28 (22-30) mmol/L Anion Gap 6.9 (5-15) MEQ/L BUN 27 H (9-20) mg/dL Creatinine 1.24 (0.66-1.25) mg/dL Estimated GFR > 60.0 ML/MIN Glucose 144 H (74-106) mg/dL POC Glucometer (74 to 106) mg/dL Calcium 8.3 L (8.4-10.2) mg/dL Total Bilirubin 0.20 (0.2-1.3) mg/dL Direct Bilirubin 0.2 (0.0-0.4) mg/dL AST 22 (17-59) U/L ALT 18 (0-50) U/L Alkaline Phosphatase 98 (38-126) U/L Creatine Kinase 77 (55-170) U/L Troponin I (0.000-0.034) ng/mL NT-Pro-B Natriuret Pep 4980 H (0-900) pg/mL Serum Total Protein 5.7 L (6.3-8.2) g/dL Albumin 3.1 L (3.5-5.0) g/dL TSH 3rd Generation (0.47-4.68) mIU/L Influenza Type A Ag (NEGATIVE) Influenza Type B Ag (NEGATIVE) RSV (PCR) (Negative) SARS-CoV-2 (PCR) (NEGATIVE) 11/04/22 11/04/22 11/04/22 Range/Units 18:50 18:50 22:05 WBC (4.0-10.5) x10^3/uL RBC (4.1-5.6) x10^6/uL Hgb (12.5-18.0) g/dL Hct (42-50) % MCV (78-100) fL MCH (26-32) pg MCHC (32-36) g/dL RDW (11.5-14.0) % Plt Count (150-450) x10^3/uL MPV (7.5-11.0) fL Gran % (36.0-66.0) % Immature Gran % (Auto) (0.00-0.4) % Nucleat RBC Rel Count (0.00-0.1) % Eos # (Auto) (0-0.5) x10^3/uL Immature Gran # (Auto) (0.00-0.03) x10^3u/L Absolute Lymphs (auto) (1.0-4.6) x10^3/uL Absolute Monos (auto) (0.0-1.3) x10^3/uL Absolute Nucleated RBC (0.00-0.01) x10^3u/L Lymphocytes % (24.0-44.0) % Monocytes % (0.0-12.0) % Eosinophils % (0.00-5.0) % Basophils % (0.0-0.4) % Absolute Granulocytes (1.4-6.9) x10^3/uL Basophils # (0-0.4) x10^3/uL PT (9.4-12.5) SECONDS INR (0.8-3.0) D-Dimer (0.0-0.50) mg/L Sodium (137-145) mmol/L Potassium (3.5-5.1) mmol/L Chloride (98-107) mmol/L Carbon Dioxide (22-30) mmol/L Anion Gap (5-15) MEQ/L BUN (9-20) mg/dL Creatinine (0.66-1.25) mg/dL Estimated GFR ML/MIN Glucose (74-106) mg/dL POC Glucometer (74 to 106) mg/dL Calcium (8.4-10.2) mg/dL Total Bilirubin (0.2-1.3) mg/dL Direct Bilirubin (0.0-0.4) mg/dL AST (17-59) U/L ALT (0-50) U/L Alkaline Phosphatase (38-126) U/L Creatine Kinase (55-170) U/L Troponin I 0.022 0.025 (0.000-0.034) ng/mL NT-Pro-B Natriuret Pep (0-900) pg/mL Serum Total Protein (6.3-8.2) g/dL Albumin (3.5-5.0) g/dL TSH 3rd Generation 7.770 H (0.47-4.68) mIU/L Influenza Type A Ag (NEGATIVE) Influenza Type B Ag (NEGATIVE) RSV (PCR) (Negative) SARS-CoV-2 (PCR) (NEGATIVE) 11/04/22 11/05/22 11/05/22 Range/Units 22:25 02:16 03:57 WBC (4.0-10.5) x10^3/uL RBC (4.1-5.6) x10^6/uL Hgb (12.5-18.0) g/dL Hct (42-50) % MCV (78-100) fL MCH (26-32) pg MCHC (32-36) g/dL RDW (11.5-14.0) % Plt Count (150-450) x10^3/uL MPV (7.5-11.0) fL Gran % (36.0-66.0) % Immature Gran % (Auto) (0.00-0.4) % Nucleat RBC Rel Count (0.00-0.1) % Eos # (Auto) (0-0.5) x10^3/uL Immature Gran # (Auto) (0.00-0.03) x10^3u/L Absolute Lymphs (auto) (1.0-4.6) x10^3/uL Absolute Monos (auto) (0.0-1.3) x10^3/uL Absolute Nucleated RBC (0.00-0.01) x10^3u/L Lymphocytes % (24.0-44.0) % Monocytes % (0.0-12.0) % Eosinophils % (0.00-5.0) % Basophils % (0.0-0.4) % Absolute Granulocytes (1.4-6.9) x10^3/uL Basophils # (0-0.4) x10^3/uL PT (9.4-12.5) SECONDS INR (0.8-3.0) D-Dimer (0.0-0.50) mg/L Sodium (137-145) mmol/L Potassium (3.5-5.1) mmol/L Chloride (98-107) mmol/L Carbon Dioxide (22-30) mmol/L Anion Gap (5-15) MEQ/L BUN (9-20) mg/dL Creatinine (0.66-1.25) mg/dL Estimated GFR ML/MIN Glucose (74-106) mg/dL POC Glucometer 121 H (74 to 106) mg/dL Calcium (8.4-10.2) mg/dL Total Bilirubin (0.2-1.3) mg/dL Direct Bilirubin (0.0-0.4) mg/dL AST (17-59) U/L ALT (0-50) U/L Alkaline Phosphatase (38-126) U/L Creatine Kinase (55-170) U/L Troponin I 0.022 (0.000-0.034) ng/mL NT-Pro-B Natriuret Pep (0-900) pg/mL Serum Total Protein (6.3-8.2) g/dL Albumin (3.5-5.0) g/dL TSH 3rd Generation (0.47-4.68) mIU/L Influenza Type A Ag NEGATIVE (NEGATIVE) Influenza Type B Ag NEGATIVE (NEGATIVE) RSV (PCR) NEGATIVE (Negative) SARS-CoV-2 (PCR) NEGATIVE (NEGATIVE) 11/05/22 Range/Units 07:17 WBC (4.0-10.5) x10^3/uL RBC (4.1-5.6) x10^6/uL Hgb (12.5-18.0) g/dL Hct (42-50) % MCV (78-100) fL MCH (26-32) pg MCHC (32-36) g/dL RDW (11.5-14.0) % Plt Count (150-450) x10^3/uL MPV (7.5-11.0) fL Gran % (36.0-66.0) % Immature Gran % (Auto) (0.00-0.4) % Nucleat RBC Rel Count (0.00-0.1) % Eos # (Auto) (0-0.5) x10^3/uL Immature Gran # (Auto) (0.00-0.03) x10^3u/L Absolute Lymphs (auto) (1.0-4.6) x10^3/uL Absolute Monos (auto) (0.0-1.3) x10^3/uL Absolute Nucleated RBC (0.00-0.01) x10^3u/L Lymphocytes % (24.0-44.0) % Monocytes % (0.0-12.0) % Eosinophils % (0.00-5.0) % Basophils % (0.0-0.4) % Absolute Granulocytes (1.4-6.9) x10^3/uL Basophils # (0-0.4) x10^3/uL PT (9.4-12.5) SECONDS INR (0.8-3.0) D-Dimer (0.0-0.50) mg/L Sodium (137-145) mmol/L Potassium (3.5-5.1) mmol/L Chloride (98-107) mmol/L Carbon Dioxide (22-30) mmol/L Anion Gap (5-15) MEQ/L BUN (9-20) mg/dL Creatinine (0.66-1.25) mg/dL Estimated GFR ML/MIN Glucose (74-106) mg/dL POC Glucometer 97 (74 to 106) mg/dL Calcium (8.4-10.2) mg/dL Total Bilirubin (0.2-1.3) mg/dL Direct Bilirubin (0.0-0.4) mg/dL AST (17-59) U/L ALT (0-50) U/L Alkaline Phosphatase (38-126) U/L Creatine Kinase (55-170) U/L Troponin I (0.000-0.034) ng/mL NT-Pro-B Natriuret Pep (0-900) pg/mL Serum Total Protein (6.3-8.2) g/dL Albumin (3.5-5.0) g/dL TSH 3rd Generation (0.47-4.68) mIU/L Influenza Type A Ag (NEGATIVE) Influenza Type B Ag (NEGATIVE) RSV (PCR) (Negative) SARS-CoV-2 (PCR) (NEGATIVE) Accuchecks Date 11/05/22 Time 07:33 - Radiology Impressions Radiology Exams & Impressions: Radiology Procedures Category Date Time Status CHEST 1 VIEW (PORTABLE) Stat Exams 11/04/22 18:24 Taken CTA ABD/PEL W AND/OR W/O CONTR [CT] Stat Exams 11/04/22 19:30 Taken CTA CHEST W AND/OR WO [CT] Stat Exams 11/04/22 19:30 Taken - Other Procedures and Tests Respiratory Therapy 11/05/22 05:33 Oxygen Nasal Cannula 2 lpm 11/06/22 05:00 EKG ROUTINE 11/07/22 05:00 EKG ROUTINE Assessment/Plan (1) Chest pain Current Visit: Yes Status: Acute Assessment & Plan: NH ruled out, cta negative for PE. 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 Dr Taylor after discharge Code(s): R07.9 - CHEST PAIN, UNSPECIFIED (2) CHF (congestive heart failure) Current Visit: No Status: Acute Onset Date: ~10/06/18 Qualifiers: Heart failure type: combined systolic and diastolic Heart failure chronicity: acute on chronic Qualified Code(s): I50.43 - Acute on chronic combined systolic (congestive) and diastolic (congestive) heart failure Code(s): I50.9 - HEART FAILURE, UNSPECIFIED (3) COPD (chronic obstructive pulmonary disease) with emphysema Current Visit: No Status: Acute Qualifiers: Emphysema type: panlobular Qualified Code(s): J43.1 - Panlobular emphysema Code(s): J43.9 - EMPHYSEMA, UNSPECIFIED Hospital Summary - Vitals & Intake/Output Vital Signs: Vital Signs Temperature 97.9 F 11/05/22 07:34 Pulse Rate 60 11/05/22 07:34 Respiratory Rate 16 11/05/22 07:34 Blood Pressure 169/81 11/05/22 07:34 O2 Sat by Pulse Oximetry 97 11/05/22 07:34 Intake & Output: Intake & Output 11/02/22 11/03/22 11/04/22 11/05/22 11:59 11:59 11:59 11:59 Intake Total 500 Balance 500 Weight 108.8 kg - Lab Result Diagrams: 11/04/22 18:50 11/04/22 18:50 Lab Results-Last 24 Hrs: Lab Results-Last 24 Hours 11/04/22 11/04/22 11/04/22 Range/Units 18:50 18:50 18:50 WBC 6.1 (4.0-10.5) x10^3/uL RBC 3.59 L (4.1-5.6) x10^6/uL Hgb 10.3 L (12.5-18.0) g/dL Hct 33.8 L (42-50) % MCV 94.2 (78-100) fL MCH 28.7 (26-32) pg MCHC 30.5 L (32-36) g/dL RDW 14.3 H (11.5-14.0) % Plt Count 195 (150-450) x10^3/uL MPV 11.6 H (7.5-11.0) fL Gran % 76.3 H (36.0-66.0) % Immature Gran % (Auto) 0.3 (0.00-0.4) % Nucleat RBC Rel Count 0.0 (0.00-0.1) % Eos # (Auto) 0.08 (0-0.5) x10^3/uL Immature Gran # (Auto) 0.02 (0.00-0.03) x10^3u/L Absolute Lymphs (auto) 1.01 (1.0-4.6) x10^3/uL Absolute Monos (auto) 0.33 (0.0-1.3) x10^3/uL Absolute Nucleated RBC 0.00 (0.00-0.01) x10^3u/L Lymphocytes % 16.5 L (24.0-44.0) % Monocytes % 5.4 (0.0-12.0) % Eosinophils % 1.3 (0.00-5.0) % Basophils % 0.2 (0.0-0.4) % Absolute Granulocytes 4.66 (1.4-6.9) x10^3/uL Basophils # 0.01 (0-0.4) x10^3/uL PT 10.7 (9.4-12.5) SECONDS INR 1.01 (0.8-3.0) D-Dimer 2.80 H* (0.0-0.50) mg/L Sodium 140 (137-145) mmol/L Potassium 4.5 (3.5-5.1) mmol/L Chloride 110 H (98-107) mmol/L Carbon Dioxide 28 (22-30) mmol/L Anion Gap 6.9 (5-15) MEQ/L BUN 27 H (9-20) mg/dL Creatinine 1.24 (0.66-1.25) mg/dL Estimated GFR > 60.0 ML/MIN Glucose 144 H (74-106) mg/dL POC Glucometer (74 to 106) mg/dL Calcium 8.3 L (8.4-10.2) mg/dL Total Bilirubin 0.20 (0.2-1.3) mg/dL Direct Bilirubin 0.2 (0.0-0.4) mg/dL AST 22 (17-59) U/L ALT 18 (0-50) U/L Alkaline Phosphatase 98 (38-126) U/L Creatine Kinase 77 (55-170) U/L Troponin I (0.000-0.034) ng/mL NT-Pro-B Natriuret Pep 4980 H (0-900) pg/mL Serum Total Protein 5.7 L (6.3-8.2) g/dL Albumin 3.1 L (3.5-5.0) g/dL TSH 3rd Generation (0.47-4.68) mIU/L Influenza Type A Ag (NEGATIVE) Influenza Type B Ag (NEGATIVE) RSV (PCR) (Negative) SARS-CoV-2 (PCR) (NEGATIVE) 11/04/22 11/04/22 11/04/22 Range/Units 18:50 18:50 22:05 WBC (4.0-10.5) x10^3/uL RBC (4.1-5.6) x10^6/uL Hgb (12.5-18.0) g/dL Hct (42-50) % MCV (78-100) fL MCH (26-32) pg MCHC (32-36) g/dL RDW (11.5-14.0) % Plt Count (150-450) x10^3/uL MPV (7.5-11.0) fL Gran % (36.0-66.0) % Immature Gran % (Auto) (0.00-0.4) % Nucleat RBC Rel Count (0.00-0.1) % Eos # (Auto) (0-0.5) x10^3/uL Immature Gran # (Auto) (0.00-0.03) x10^3u/L Absolute Lymphs (auto) (1.0-4.6) x10^3/uL Absolute Monos (auto) (0.0-1.3) x10^3/uL Absolute Nucleated RBC (0.00-0.01) x10^3u/L Lymphocytes % (24.0-44.0) % Monocytes % (0.0-12.0) % Eosinophils % (0.00-5.0) % Basophils % (0.0-0.4) % Absolute Granulocytes (1.4-6.9) x10^3/uL Basophils # (0-0.4) x10^3/uL PT (9.4-12.5) SECONDS INR (0.8-3.0) D-Dimer (0.0-0.50) mg/L Sodium (137-145) mmol/L Potassium (3.5-5.1) mmol/L Chloride (98-107) mmol/L Carbon Dioxide (22-30) mmol/L Anion Gap (5-15) MEQ/L BUN (9-20) mg/dL Creatinine (0.66-1.25) mg/dL Estimated GFR ML/MIN Glucose (74-106) mg/dL POC Glucometer (74 to 106) mg/dL Calcium (8.4-10.2) mg/dL Total Bilirubin (0.2-1.3) mg/dL Direct Bilirubin (0.0-0.4) mg/dL AST (17-59) U/L ALT (0-50) U/L Alkaline Phosphatase (38-126) U/L Creatine Kinase (55-170) U/L Troponin I 0.022 0.025 (0.000-0.034) ng/mL NT-Pro-B Natriuret Pep (0-900) pg/mL Serum Total Protein (6.3-8.2) g/dL Albumin (3.5-5.0) g/dL TSH 3rd Generation 7.770 H (0.47-4.68) mIU/L Influenza Type A Ag (NEGATIVE) Influenza Type B Ag (NEGATIVE) RSV (PCR) (Negative) SARS-CoV-2 (PCR) (NEGATIVE) 11/04/22 11/05/22 11/05/22 Range/Units 22:25 02:16 03:57 WBC (4.0-10.5) x10^3/uL RBC (4.1-5.6) x10^6/uL Hgb (12.5-18.0) g/dL Hct (42-50) % MCV (78-100) fL MCH (26-32) pg MCHC (32-36) g/dL RDW (11.5-14.0) % Plt Count (150-450) x10^3/uL MPV (7.5-11.0) fL Gran % (36.0-66.0) % Immature Gran % (Auto) (0.00-0.4) % Nucleat RBC Rel Count (0.00-0.1) % Eos # (Auto) (0-0.5) x10^3/uL Immature Gran # (Auto) (0.00-0.03) x10^3u/L Absolute Lymphs (auto) (1.0-4.6) x10^3/uL Absolute Monos (auto) (0.0-1.3) x10^3/uL Absolute Nucleated RBC (0.00-0.01) x10^3u/L Lymphocytes % (24.0-44.0) % Monocytes % (0.0-12.0) % Eosinophils % (0.00-5.0) % Basophils % (0.0-0.4) % Absolute Granulocytes (1.4-6.9) x10^3/uL Basophils # (0-0.4) x10^3/uL PT (9.4-12.5) SECONDS INR (0.8-3.0) D-Dimer (0.0-0.50) mg/L Sodium (137-145) mmol/L Potassium (3.5-5.1) mmol/L Chloride (98-107) mmol/L Carbon Dioxide (22-30) mmol/L Anion Gap (5-15) MEQ/L BUN (9-20) mg/dL Creatinine (0.66-1.25) mg/dL Estimated GFR ML/MIN Glucose (74-106) mg/dL POC Glucometer 121 H (74 to 106) mg/dL Calcium (8.4-10.2) mg/dL Total Bilirubin (0.2-1.3) mg/dL Direct Bilirubin (0.0-0.4) mg/dL AST (17-59) U/L ALT (0-50) U/L Alkaline Phosphatase (38-126) U/L Creatine Kinase (55-170) U/L Troponin I 0.022 (0.000-0.034) ng/mL NT-Pro-B Natriuret Pep (0-900) pg/mL Serum Total Protein (6.3-8.2) g/dL Albumin (3.5-5.0) g/dL TSH 3rd Generation (0.47-4.68) mIU/L Influenza Type A Ag NEGATIVE (NEGATIVE) Influenza Type B Ag NEGATIVE (NEGATIVE) RSV (PCR) NEGATIVE (Negative) SARS-CoV-2 (PCR) NEGATIVE (NEGATIVE) 11/05/22 Range/Units 07:17 WBC (4.0-10.5) x10^3/uL RBC (4.1-5.6) x10^6/uL Hgb (12.5-18.0) g/dL Hct (42-50) % MCV (78-100) fL MCH (26-32) pg MCHC (32-36) g/dL RDW (11.5-14.0) % Plt Count (150-450) x10^3/uL MPV (7.5-11.0) fL Gran % (36.0-66.0) % Immature Gran % (Auto) (0.00-0.4) % Nucleat RBC Rel Count (0.00-0.1) % Eos # (Auto) (0-0.5) x10^3/uL Immature Gran # (Auto) (0.00-0.03) x10^3u/L Absolute Lymphs (auto) (1.0-4.6) x10^3/uL Absolute Monos (auto) (0.0-1.3) x10^3/uL Absolute Nucleated RBC (0.00-0.01) x10^3u/L Lymphocytes % (24.0-44.0) % Monocytes % (0.0-12.0) % Eosinophils % (0.00-5.0) % Basophils % (0.0-0.4) % Absolute Granulocytes (1.4-6.9) x10^3/uL Basophils # (0-0.4) x10^3/uL PT (9.4-12.5) SECONDS INR (0.8-3.0) D-Dimer (0.0-0.50) mg/L Sodium (137-145) mmol/L Potassium (3.5-5.1) mmol/L Chloride (98-107) mmol/L Carbon Dioxide (22-30) mmol/L Anion Gap (5-15) MEQ/L BUN (9-20) mg/dL Creatinine (0.66-1.25) mg/dL Estimated GFR ML/MIN Glucose (74-106) mg/dL POC Glucometer 97 (74 to 106) mg/dL Calcium (8.4-10.2) mg/dL Total Bilirubin (0.2-1.3) mg/dL Direct Bilirubin (0.0-0.4) mg/dL AST (17-59) U/L ALT (0-50) U/L Alkaline Phosphatase (38-126) U/L Creatine Kinase (55-170) U/L Troponin I (0.000-0.034) ng/mL NT-Pro-B Natriuret Pep (0-900) pg/mL Serum Total Protein (6.3-8.2) g/dL Albumin (3.5-5.0) g/dL TSH 3rd Generation (0.47-4.68) mIU/L Influenza Type A Ag (NEGATIVE) Influenza Type B Ag (NEGATIVE) RSV (PCR) (Negative) SARS-CoV-2 (PCR) (NEGATIVE) Micro Results-Entire Visit: Accuchecks Date 11/05/22 Time 07:33 - Radiology Exams Ordered Rad Exams-Entire Visit: Radiology Procedures Category Date Time Status CHEST 1 VIEW (PORTABLE) Stat Exams 11/04/22 18:24 Taken CTA ABD/PEL W AND/OR W/O CONTR [CT] Stat Exams 11/04/22 19:30 Taken CTA CHEST W AND/OR WO [CT] Stat Exams 11/04/22 19:30 Taken - Procedures and Test Procedures and Tests throughout Hospitalization: Therapy Orders & Screens 11/04/22 22:04 EKG [id number],QAMX3,PRN Comment: 11/05/22 05:00 EKG ROUTINE Comment: Diagnosis: chest pain 11/05/22 05:33 Oxygen Nasal Cannula 2 lpm Comment: Diagnosis: chest pain 11/06/22 05:00 EKG ROUTINE Comment: Diagnosis: chest pain 11/07/22 05:00 EKG ROUTINE Comment: Diagnosis: chest pain - Discharge Disposition: Home, Self-Care Condition: Stable Prescriptions: Continue Losartan Potassium 50 mg [Cozaar 50 MG] 50 mg PO DAILY Furosemide 40 mg [Lasix 40 MG] 40 mg PO DAILY Ezetimibe 10 mg PO DAILY carvediloL [Carvedilol] 25 mg PO BID Hydrochlorothiazide 25 mg [hydroDIURIL 25 MG] 25 mg PO DAILY Clopidogrel Bisulfate [PLAVIX Tablet] 75 mg PO DAILY Allopurinol 100 mg [Zyloprim 100 mg] 100 mg PO BID Aspirin EC 81 mg [Ecotrin 81 mg] 81 mg PO DAILY Hydrocodone/Acetaminophen [Hydrocodone-Acetamin 5-325 mg] 1 tab PO Q6HPRN PRN #20 tablet MDD 4 PRN Reason: Pain Levothyroxine Sodium 50 Mcg [Synthroid 50 Mcg] 50 mcg PO DAILY #30 tablet Metformin HCl [Metformin HCl ER] 1,000 mg PO BID Insulin Glargine,Hum.rec.anlog [Lantus] 20 unit SQ QHS Furosemide 40 mg [Lasix 40 MG] 40 mg PO 1400 PRN PRN Reason: fluid overload Follow up with: NICCI CLAROS MD [Primary Care Provider] - Zev Taylor MD [CONSULTING PHYSICIAN] -
--- NOTE | 2022-11-05 08:43 | XRAY ---
Indication: Chest and abdomen pain. Elevated d-dimer. Conventional contrast enhanced CTA chest performed using 100 cc Isovue 370 contrast. 2-D sagittal and coronal reformatted images obtained. Additional 3-D reformatted images obtained using a separate workstation. Comparison: October 23, 2022. There is good opacification of the pulmonary arteries to include the lobar and segmental branches. No pulmonary embolus. Heart not enlarged again with CABG. Aorta again minimally arteriosclerotic without aneurysm/dissection. Stable small subcarinal and right infrahilar calcified nodes. No pathologic mediastinal/hilar lymphadenopathy. Lungs again demonstrates minimal bilateral dependent atelectasis, minimal scattered fibrosis/scarring, tiny right effusion, and right lower lobe calcified granulomas. No new pulmonary mass/nodule, infiltrate, or pneumothorax. Bony thorax intact again with mild degenerative changes throughout the spine, old left 1 rib fracture, and sternotomy wires. CTA abdomen/pelvis reported separately. Impression: 1. No change compared to CT PE exam 12 days ago. Continued negative for pulmonary embolus and aortic aneurysm/dissection. No new/acute abnormalities. 2. Again incidental bilateral atelectasis/scarring, tiny nonspecific right effusion, chronic bony findings, and old granulomatous disease.
--- NOTE | 2022-11-05 08:49 | XRAY ---
Indication: Chest and abdomen pain. Elevated d-dimer. Conventional contrast enhanced CTA abdomen/pelvis performed using 100 cc Isovue 370 contrast. 2-D sagittal and coronal reformatted images obtained. Additional 3-D reformatted images obtained using a separate workstation. Comparison: CT abdomen/pelvis without contrast exam October 23, 2022. CTA chest reported separately. Aorta again demonstrates mild scattered arteriosclerotic calcifications without aneurysm/dissection. Minimal calcifications reidentified at origin super mesenteric, both main renal, and lesser degree celiac arteries without critical stenosis or post stenotic dilatation. Iliac vessels again demonstrates mild scattered arteriosclerotic calcifications without critical stenosis or obstruction. Noncontrasted stomach and bowel loops remain nonobstructed again with normal appendix. Again mild diffuse scattered colonic fecal debris with moderate rectal impaction. Gallbladder remains mildly distended with tiny gallstones/gravel in the neck. No free fluid/air. Remaining liver, pancreas, spleen, adrenal glands, kidneys, ureters, and bladder are unremarkable. No pathologic retroperitoneal lymphadenopathy. Osseous structures again demonstrates mild/moderate degenerative changes throughout the spine, minimal levoscoliosis, and mild degenerative changes both hips. Stable small bilateral fatty inguinal hernias. Impression: 1. CTA abdomen/pelvis again demonstrates mild scattered arteriosclerotic disease as detailed without aneurysm/dissection. 2. Again mild diffuse fecal stasis with rectal impaction, cholelithiasis, chronic bony findings, and bilateral fatty inguinal hernias. 3. No new/acute abnormalities.
--- NOTE | 2022-11-05 08:52 | XRAY ---
Indication: Chest pain. Comparison: October 28, 2022 Portable chest better inflated with clearing previous bilateral infiltrates/atelectasis. Left midlung demonstrates minimal subsegmental atelectasis/scarring. Stable right base calcified granuloma. Heart not enlarged again with CABG. Impression: Chest is improved again with chronic features.
[2022-11-05] MEDS ORDERED: Cozaar 50 MG PO SCH (10:00)
[2022-11-05] MEDS ORDERED: Zetia 10 MG PO SCH (10:00)
[2022-11-05] MEDS ORDERED: Ecotrin 325 MG PO SCH (10:00)
[2022-11-05] MEDS ORDERED: Lasix 40 MG PO SCH (10:00)
[2022-11-05] MEDS ORDERED: COREG 12.5 MG PO SCH (10:00)
[2022-11-05] MEDS ORDERED: PLAVIX Tablet PO SCH (10:00)
[2022-11-05] MEDS ORDERED: hydroDIURIL 25 MG PO SCH (10:00)
[2022-11-05] MEDS ORDERED: ECOTRIN 81 MG PO SCH (10:00)
[2022-11-05] MEDS ORDERED: SYNTHROID 50 MCG PO SCH (10:00)
[2022-11-05] MEDS ORDERED: ZYLOPRIM 100 MG PO SCH ×2 (10:00)
[2022-11-05 11:39] VITALS: BP 161/79; PULSE 59; O2SAT 98
[2022-11-05 13:42] LABS: Risk Ratio 7.2
[2022-11-05] MEDS ORDERED: Lasix 40 MG PO PRN (14:00)
[2022-11-05] MEDS ORDERED: Lantus Insulin SQ SCH (22:00)
[2022-11-05] MEDS ORDERED: COREG 12.5 MG PO ONE (23:47)
== END 2022-11-05 13:19 | disposition home or self-care (01) ==
LOC: ED 18:07 → MED SURG 11-05 00:07
PROVIDERS: ADMIT Family Medicine; ATTEND Family Medicine
DX: R07.9 Chest pain, unspecified (principal); I11.0 Hypertensive heart disease with heart failure; I50.9 Heart failure, unspecified; J43.9 Emphysema, unspecified; I25.10 Atherosclerotic heart disease of native coronary artery without angina pectoris; E11.9 Type 2 diabetes mellitus without complications; E78.5 Hyperlipidemia, unspecified; Z20.828 Contact with and (suspected) exposure to other viral communicable diseases; Z79.01 Long term (current) use of anticoagulants; Z79.899 Other long term (current) drug therapy
CPT/HCPCS: 0241U; 36000; 36415; 71045; 71275; 74174; 80048; 80061; 80076; 82550; 82947; 83721; 83880; 84443; 84484; 85025; 85379; 85610; 93005; 93041; 94762; 96374; 96375; 99285; G0378; J0360; J2405; J3010; A9270-GY

== ENCOUNTER 2022-11-19 09:02 | Emergency (ER) | payer MEDICARE, OTHER ==
--- NOTE | 2022-11-19 09:22 | ERPHSYRPT ---
- History of Present Illness Time Seen by Provider: 11/19/22 09:21 Source: patient Exam Limitations: no limitations Patient Subjective Stated Complaint: HTN/Chest pain Triage Nursing Assessment: Patient brought back to ED per w/c and transferred to bed per self. Patient A+O X 3. Patient's skin pink, warm and dry. Patient states he woke up at 0530 and took his blood pressure on his automatic cough and it was reading high. Patient states one reading was 210/95. Patient had been having intermittent chest pain also 3/10 to right side. Patient denies N/V. Lungs diminished throughout. Physician History: This is a 67-year-old white male patient of Dr. Claros who has multiple medical issues that are of moderate intensity. Patient presents to the emergency department with intermittent chest pain that is localized in the central substernal area and it is nonradiating. He describes the pain as sometimes sharp sometimes dull achiness. He has been seen in this emergency department on October 23, 2022, October 27, 2022 in November 05, 2022. On October 27 he was seen because of chest pain. I did review inpatient records from prior, recent hospitalizations. Patient is a daily smoker of cigarettes. Patient has several cardiac risk factors including hypertension, diabetes and hyperlipidemia. He also has a history of COPD and he is taking Plavix. He has coronary disease and has had coronary artery bypass x3 vessels in the past. His produce team member is Dr. Taylor. He takes losartan and carvedilol for his blood pressure. Patient came into the hospital primarily because his blood pressure this morning was 210/95 on his machine at home. Upon arrival to the emergency department his blood pressure is 155/88. He does have the chest pain as described above with an intensity of 3 out of 10. He does not complain of any shortness of breath and he has no abdominal pain. Severity: mild Modifying Factors: Improves With: nothing Associated Symptoms: chest pain, No nausea, No vomiting, No abdominal pain, No shortness of breath, No headaches, No weakness Allergies/Adverse Reactions: gabapentin Adverse Reaction (Verified 11/19/22 09:05) "got kind of loopy" Home Medications: Losartan Potassium 50 mg [Cozaar 50 MG] 50 mg PO DAILY 05/26/19 [History] Furosemide 40 mg [Lasix 40 MG] 40 mg PO DAILY 07/18/19 [History] Ezetimibe 10 mg PO DAILY 04/26/20 [History] Clopidogrel Bisulfate [PLAVIX Tablet] 75 mg PO DAILY 02/10/21 [History] Hydrochlorothiazide 25 mg [hydroDIURIL 25 MG] 25 mg PO DAILY 02/10/21 [History] carvediloL [Carvedilol] 25 mg PO BID 02/10/21 [History] Allopurinol 100 mg [Zyloprim 100 mg] 100 mg PO BID 06/06/21 [History] Aspirin EC 81 mg [Ecotrin 81 mg] 81 mg PO DAILY 10/23/22 [History] Furosemide 40 mg [Lasix 40 MG] 40 mg PO 1400 PRN 11/05/22 [History] Insulin Glargine,Hum.rec.anlog [Lantus] 20 unit SQ QHS 11/05/22 [History] Metformin HCl [Metformin HCl ER] 1,000 mg PO BID 11/05/22 [History] Hx Tetanus, Diphtheria Vaccination/Date Given: Yes Hx Influenza Vaccination/Date Given: Yes Hx Pneumococcal Vaccination/Date Given: Yes Immunizations Up to Date: Yes Travel Risk - International Travel Have you traveled outside of the country in past 3 weeks: No - Coronavirus Screening Are you exhibiting any of the following symptoms?: No - Vaccine Status Have you recieved a Covid-19 vaccination: No - Review of Systems Constitutional: No Symptoms Eyes: No Symptoms Ears, Nose, & Throat: No Symptoms Respiratory: No Symptoms Cardiac: Chest Pain Abdominal/Gastrointestinal: No Symptoms Genitourinary Symptoms: No Symptoms Musculoskeletal: No Symptoms Skin: No Symptoms Neurological: No Symptoms Psychological: No Symptoms Endocrine: No Symptoms Hematologic/Lymphatic: No Symptoms Immunological/Allergic: No Symptoms All Other Systems: Reviewed and Negative - Past Medical History Pertinent Past Medical History: Yes Neurological History: No Pertinent History ENT History: No Pertinent History Cardiac History: Angina, Coronary Artery Disease, High Cholesterol, Hypertension, Myocardial Infarction ([place]) Respiratory History: COPD Endocrine Medical History: Diabetes Type II Musculoskeletal History: Osteoarthritis GI Medical History: No Pertinent History History: No Pertinent History Psycho-Social History: No Pertinent History Male Reproductive Disorders: No Pertinent History Other Medical History: fractured ribs, anemia, gout - Past Surgical History Past Surgical History: Yes Neuro Surgical History: No Pertinent History Cardiac: CABG, Other Respiratory: Chest Surgery Gastrointestinal: No Pertinent History Genitourinary: No Pertinent History Musculoskeletal: Orthopedic Surgery Male Surgical History: No Pertinent History Other Surgical History: umbilical, triple bypass, L shoulder - Social History Smoking Status: Former smoker How long have you smoked: 53 Exposure to second hand smoke: Yes Drug Use: none Patient Lives Alone: No - Nursing Vital Signs Nursing Vital Signs: Initial Vital Signs Temperature 98.2 F 11/19/22 09:05 Pulse Rate 73 11/19/22 09:05 Respiratory Rate 19 11/19/22 09:05 Blood Pressure 155/88 11/19/22 09:05 O2 Sat by Pulse Oximetry 97 11/19/22 09:05 Pain Scale Pain Intensity 0 - Physical Exam General Appearance: no apparent distress, alert, anxiety Eye Exam: PERRL/EOMI, eyes nml inspection Ears, Nose, Throat Exam: normal ENT inspection, moist mucous membranes Neck Exam: normal inspection, non-tender, supple, full range of motion Respiratory Exam: normal breath sounds, chest tenderness, lungs clear, airway intact, No respiratory distress Cardiovascular Exam: regular rate/rhythm, normal heart sounds, normal peripheral pulses Gastrointestinal/Abdomen Exam: soft, normal bowel sounds, No tenderness Rectal Exam: not done Back Exam: normal inspection, normal range of motion, No CVA tenderness, No vertebral tenderness Extremity Exam: normal inspection, normal range of motion, pelvis stable Neurologic Exam: alert, oriented x 3, cooperative, 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 There is no evidence of any acute ischemia. Today's twelve- lead EKG is improved over the twelve-lead EKG that was performed on 11/05/2022.) Ordered Tests: Active Orders 24 hr Category Date Time Status EKG-ER Only STAT Care 11/19/22 09:23 Active IV Insertion STAT Care 11/19/22 09:23 Active Pulse Oximetry (ED) STAT Care 11/19/22 09:23 Active CHEST 1 VIEW (PORTABLE) Stat Exams 11/19/22 09:23 Completed CBC W DIFF Stat Lab 11/19/22 09:15 Completed CMP Stat Lab 11/19/22 09:23 Completed NT PRO BNP Stat Lab 11/19/22 09:23 Completed TROPONIN Q4H Lab 11/19/22 09:30 Completed TROPONIN Q4H Lab 11/19/22 12:09 Completed TROPONIN Q4H Lab 11/19/22 17:30 Ordered Medication Summary Discontinued Medications Generic Name Dose Route Start Last Admin Trade Name Freq PRN Reason Stop Dose Admin Aspirin 324 mg 11/19/22 09:23 11/19/22 09:32 Aspirin 81 Mg Tab.Chew PO 11/19/22 09:24 324 mg STAT ONE Administration Aspirin Confirm 11/19/22 09:33 Aspirin 81 Mg Tab.Chew Administered 11/19/22 09:34 Dose 324 mg .ROUTE .[employer]-MED ONE Lab/Rad Data: Laboratory Result Diagrams 11/19/22 09:15 11/19/22 09:23 Laboratory Results 11/19/22 11/19/22 11/19/22 Range/Units 12:09 09:30 09:23 WBC (4.0-10.5) x10^3/uL RBC (4.1-5.6) x10^6/uL Hgb (12.5-18.0) g/dL Hct (42-50) % MCV (78-100) fL MCH (26-32) pg MCHC (32-36) g/dL RDW (11.5-14.0) % Plt Count (150-450) x10^3/uL MPV (7.5-11.0) fL Gran % (36.0-66.0) % Immature Gran % (Auto) (0.00-0.4) % Nucleat RBC Rel Count (0.00-0.1) % Eos # (Auto) (0-0.5) x10^3/uL Immature Gran # (Auto) (0.00-0.03) x10^3u/L Absolute Lymphs (auto) (1.0-4.6) x10^3/uL Absolute Monos (auto) (0.0-1.3) x10^3/uL Absolute Nucleated RBC (0.00-0.01) x10^3u/L Lymphocytes % (24.0-44.0) % Monocytes % (0.0-12.0) % Eosinophils % (0.00-5.0) % Basophils % (0.0-0.4) % Absolute Granulocytes (1.4-6.9) x10^3/uL Basophils # (0-0.4) x10^3/uL Sodium 143 (137-145) mmol/L Potassium 4.2 (3.5-5.1) mmol/L Chloride 110 H (98-107) mmol/L Carbon Dioxide 27 (22-30) mmol/L Anion Gap 11.2 (5-15) MEQ/L BUN 42 H (9-20) mg/dL Creatinine 1.15 (0.66-1.25) mg/dL Estimated GFR > 60.0 ML/MIN Glucose 154 H (74-106) mg/dL Calcium 8.5 (8.4-10.2) mg/dL Total Bilirubin 0.30 (0.2-1.3) mg/dL AST 23 (17-59) U/L ALT 16 (0-50) U/L Alkaline Phosphatase 98 (38-126) U/L Troponin I 0.023 0.023 (0.000-0.034) ng/mL NT-Pro-B Natriuret Pep 3340 H (0-900) pg/mL Serum Total Protein 5.7 L (6.3-8.2) g/dL Albumin 3.2 L (3.5-5.0) g/dL 11/19/22 Range/Units 09:15 WBC 5.8 (4.0-10.5) x10^3/uL RBC 3.56 L (4.1-5.6) x10^6/uL Hgb 10.2 L (12.5-18.0) g/dL Hct 32.8 L (42-50) % MCV 92.1 (78-100) fL MCH 28.7 (26-32) pg MCHC 31.1 L (32-36) g/dL RDW 14.5 H (11.5-14.0) % Plt Count 158 (150-450) x10^3/uL MPV 12.8 H (7.5-11.0) fL Gran % 80.7 H (36.0-66.0) % Immature Gran % (Auto) 0.2 (0.00-0.4) % Nucleat RBC Rel Count 0.0 (0.00-0.1) % Eos # (Auto) 0.11 (0-0.5) x10^3/uL Immature Gran # (Auto) 0.01 (0.00-0.03) x10^3u/L Absolute Lymphs (auto) 0.61 L (1.0-4.6) x10^3/uL Absolute Monos (auto) 0.37 (0.0-1.3) x10^3/uL Absolute Nucleated RBC 0.00 (0.00-0.01) x10^3u/L Lymphocytes % 10.6 L (24.0-44.0) % Monocytes % 6.4 (0.0-12.0) % Eosinophils % 1.9 (0.00-5.0) % Basophils % 0.2 (0.0-0.4) % Absolute Granulocytes 4.64 (1.4-6.9) x10^3/uL Basophils # 0.01 (0-0.4) x10^3/uL Sodium (137-145) mmol/L Potassium (3.5-5.1) mmol/L Chloride (98-107) mmol/L Carbon Dioxide (22-30) mmol/L Anion Gap (5-15) MEQ/L BUN (9-20) mg/dL Creatinine (0.66-1.25) mg/dL Estimated GFR ML/MIN Glucose (74-106) mg/dL Calcium (8.4-10.2) mg/dL Total Bilirubin (0.2-1.3) mg/dL AST (17-59) U/L ALT (0-50) U/L Alkaline Phosphatase (38-126) U/L Troponin I (0.000-0.034) ng/mL NT-Pro-B Natriuret Pep (0-900) pg/mL Serum Total Protein (6.3-8.2) g/dL Albumin (3.5-5.0) g/dL - Progress Progress: improved Progress Note: 11/19/22 11:13 Chest x-ray report was reviewed by me. There are no new or acute abnormalities. There is unchanged left midlung subsegmental atelectasis versus scarring. There is also a persistent, unchanged right base granuloma 11/19/22 11:42 Medical decision making: I spoke with Dr. Taylor, the patient's produce team member, the plan that was formulated by both of us today in the emergency department is to repeat a 3-hour troponin. If this level is also normal, the patient can be discharged home with instructions to follow-up in Dr. Taylor's office at 930 tomorrow morning, 11/20/2022. Dr. Taylor also wants me to increase his losartan to 100 mg/day. In addition, Dr. Taylor wants me to add isosorbide mononitrate 30 mg orally daily. The patient and I also discussed smoking cessation and the benefit of stopping smoking on his health and specifically cardiac disease. We will await the second troponin level. 11/19/22 12:55 Medical decision making: This patient's medical work-up initiated today is of moderate complexity. Based on the patient's history and review of old inpatient admission history, patient's complaint and physical exam findings I ordered chest x-ray, twelve-lead EKG which I interpreted on my own, laboratory work-up as well. I reviewed the results of all the labs and based on the results of the labs and work-up and the patient's response as well as his vital signs, I contacted the patient's produce team member Dr. Taylor. Together we formulated the plan. I discussed that plan with the patient. Since the 3-hour troponin is normal, the patient may be discharged home and be patient is to follow-up in Dr. Knight's office tomorrow at 9:30 AM, on 11/20/2022. I am increasing his losartan to 100 mg p.o. daily and adding isosorbide mononitrate 30 mg orally each day 11/19/22 13:03 Discussed with DrCassandra: Other (Spoke with Dr. Taylor patient's produce team member) Counseled pt/family regarding: lab results, diagnosis, need for follow-up, rad results - Departure Departure Disposition: Home Clinical Impression: Hypertension, Chest pain, CHF (congestive heart failure) Condition: Stable Critical Care Time: No Referrals: NICCI CLAROS MD [Primary Care Provider] - Follow up/PCP as directed Instructions: Heart Failure Additional Instructions: Follow-up with Dr. Taylor, your produce team member, tomorrow morning. Be there at 9:30 in the morning at his office on 11/20/2022. Take the new medications as prescribed and to continue your other medications as prescribed. Prescriptions: Isosorbide Mononitrate 30 mg PO DAILY #52 tablet Losartan Potassium 100 mg PO DAILY #14 tablet
[2022-11-19] MEDS ORDERED: BABY ASPIRIN 81 MG CHEW PO ONE (09:23)
[2022-11-19] MEDS ORDERED: BABY ASPIRIN 81 MG CHEW ONE (09:33)
--- NOTE | 2022-11-19 10:00 | XRAY ---
Indication: Elevated blood pressure. Chest pain. Comparison: November 04, 2022 Portable chest unchanged again demonstrating minimal left midlung subsegmental atelectasis/scarring and right base calcified granuloma. Heart not enlarged again with CABG. No new/acute abnormalities.
[2022-11-19 10:57] LABS: Absolute Neutrophil Ct (ANC) 4.64 x10^3/uL (1.4-6.9); BASOPHIL % 0.2 % (0.0-0.4); Basophil (Absolute #) 0.01 x10^3/uL (0-0.4); Eosinophil % 1.9 % (0.00-5.0); Eosinophil (Absolute #) 0.11 x10^3/uL (0-0.5); Hematocrit 32.8 % (42-50); Hemoglobin 10.2 g/dL (12.5-18.0); IMMATURE GRAN # 0.01 x10^3u/L (0.00-0.03); IMMATURE GRAN % 0.2 % (0.00-0.4); Lymphocyte (Absolute #) 0.61 x10^3/uL (1.0-4.6); Lymphocytes % 10.6 % (24.0-44.0); Mean Cell Volume 92.1 fL (78-100); Mean Corpuscular Hemoglobin 28.7 pg (26-32); Mean Corpuscular Hgb Concent. 31.1 g/dL (32-36); Mean Platelet Volume 12.8 fL (7.5-11.0); Monocyte (Absolute #) 0.37 x10^3/uL (0.0-1.3); Monocytes % 6.4 % (0.0-12.0); Neutrophil % 80.7 % (36.0-66.0); Platelet Count 158 x10^3/uL (150-450); Red Blood Count 3.56 x10^6/uL (4.1-5.6); Red Cell Distribution Width 14.5 % (11.5-14.0); White Blood Count 5.8 x10^3/uL (4.0-10.5)
[2022-11-19 11:10] LABS: ALBUMIN 3.2 g/dL (3.5-5.0); ALKALINE PHOSPHATASE 98 U/L (38-126); ANION GAP 11.2 MEQ/L (5-15); BLOOD UREA NITROGEN 42 mg/dL (9-20); CHLORIDE 110 mmol/L (98-107); Calcium 8.5 mg/dL (8.4-10.2); Carbon Dioxide 27 mmol/L (22-30); Creatinine 1 1.15 mg/dL (0.66-1.25); EST GLOMERULAR FILTRATION RATE > 60.0 ML/MIN; Glucose 154 mg/dL (74-106); NT PRO BNP 3340 pg/mL (0-900); Potassium 4.2 mmol/L (3.5-5.1); SGOT/AST 23 U/L (17-59); SGPT/ALT 16 U/L (0-50); SODIUM 143 mmol/L (137-145); Total Protein 5.7 g/dL (6.3-8.2)
[2022-11-19 13:08] VITALS: BP 159/72; PULSE 66; O2SAT 95
== END 2022-11-19 13:28 | disposition home or self-care (01) ==
LOC: ED 09:02
DX: I11.0 Hypertensive heart disease with heart failure (principal); I50.9 Heart failure, unspecified; R07.9 Chest pain, unspecified; E11.9 Type 2 diabetes mellitus without complications; E78.5 Hyperlipidemia, unspecified; Z79.02 Long term (current) use of antithrombotics/antiplatelets; Z79.4 Long term (current) use of insulin; Z79.84 Long term (current) use of oral hypoglycemic drugs; Z79.899 Other long term (current) drug therapy; Z28.310 Unvaccinated for COVID-19; Z72.0 Tobacco use
CPT/HCPCS: 36000; 36415; 71045; 80053; 83880; 84484; 85025; 93005; 94760; 99284; A9270-GY

== ENCOUNTER 2022-11-30 09:44 | Emergency (ER) | payer MEDICARE, OTHER ==
--- NOTE | 2022-11-30 09:48 | ERPHSYRPT ---
- History of Present Illness Time Seen by Provider: 11/30/22 09:48 Source: patient, family Exam Limitations: no limitations Physician History: This is a 67-year-old white male patient of Dr. Claros who has a history of diabetes, hypertension, coronary artery disease, hyperlipidemia, COPD and does take Plavix who presents with concerns of hypertension. Patient woke up this morning and with his home device his systolic blood pressure was approximately 220/140. He was not sure if that was actually correct. However, he did have a headache and felt that he should be evaluated. Patient states that they have been changing his blood pressure medication. Most recent change was last week. Patient arrives to our emergency department with a blood pressure of 176/89. 10 minutes later, the blood pressure is 161/81. Patient's transport pilot is Dr. Taylor. On 11/19/2022, the patient's emergency room visit was for high blood pressure issues as well. I did review recent inpatient hospitalization records. Patient denies chest pain. He denies shortness of breath. He has not had any visual changes. Timing/Duration: today Associated Symptoms: headaches, No nausea, No vomiting, No abdominal pain, No shortness of breath, No cough, No chest pain, No fever, No loss of appetite, No seizure, No weakness Allergies/Adverse Reactions: gabapentin Adverse Reaction (Verified 11/30/22 10:01) "got kind of loopy" Home Medications: Losartan Potassium 50 mg [Cozaar 50 MG] 50 mg PO DAILY 05/26/19 [History] Furosemide 40 mg [Lasix 40 MG] 40 mg PO DAILY 07/18/19 [History] Ezetimibe 10 mg PO DAILY 04/26/20 [History] Clopidogrel Bisulfate [PLAVIX Tablet] 75 mg PO DAILY 02/10/21 [History] Hydrochlorothiazide 25 mg [hydroDIURIL 25 MG] 25 mg PO DAILY 02/10/21 [History] carvediloL [Carvedilol] 25 mg PO BID 02/10/21 [History] Allopurinol 100 mg [Zyloprim 100 mg] 100 mg PO BID 06/06/21 [History] Aspirin EC 81 mg [Ecotrin 81 mg] 81 mg PO DAILY 10/23/22 [History] Furosemide 40 mg [Lasix 40 MG] 40 mg PO 1400 PRN 11/05/22 [History] Insulin Glargine,Hum.rec.anlog [Lantus] 20 unit SQ QHS 11/05/22 [History] Metformin HCl [Metformin HCl ER] 1,000 mg PO BID 11/05/22 [History] Hx Tetanus, Diphtheria Vaccination/Date Given: Yes Hx Influenza Vaccination/Date Given: Yes Hx Pneumococcal Vaccination/Date Given: Yes Travel Risk - International Travel Have you traveled outside of the country in past 3 weeks: No - Coronavirus Screening Are you exhibiting any of the following symptoms?: No Close contact with a COVID-19 positive Pt in past 14-21 Days: No - Vaccine Status Have you recieved a Covid-19 vaccination: No - Review of Systems Constitutional: No Symptoms Eyes: No Symptoms Ears, Nose, & Throat: No Symptoms Respiratory: No Symptoms Cardiac: No Symptoms Abdominal/Gastrointestinal: No Symptoms Genitourinary Symptoms: No Symptoms Musculoskeletal: No Symptoms Skin: No Symptoms Neurological: Headache Psychological: No Symptoms Endocrine: No Symptoms Hematologic/Lymphatic: No Symptoms Immunological/Allergic: No Symptoms All Other Systems: Reviewed and Negative - Past Medical History Pertinent Past Medical History: Yes Neurological History: No Pertinent History ENT History: No Pertinent History Cardiac History: Angina, Coronary Artery Disease, High Cholesterol, Hypertension, Myocardial Infarction ([place]) Respiratory History: COPD Endocrine Medical History: Diabetes Type II Musculoskeletal History: Osteoarthritis GI Medical History: No Pertinent History History: No Pertinent History Psycho-Social History: No Pertinent History Male Reproductive Disorders: No Pertinent History Other Medical History: fractured ribs, anemia, gout - Past Surgical History Past Surgical History: Yes Neuro Surgical History: No Pertinent History Cardiac: CABG, Other Respiratory: Chest Surgery Gastrointestinal: No Pertinent History Genitourinary: No Pertinent History Musculoskeletal: Orthopedic Surgery Male Surgical History: No Pertinent History Other Surgical History: umbilical, triple bypass, L shoulder - Social History Smoking Status: Former smoker How long have you smoked: 53 Exposure to second hand smoke: Yes Drug Use: none Patient Lives Alone: No - Nursing Vital Signs Nursing Vital Signs: Initial Vital Signs Temperature 96.9 F 11/30/22 10:07 Pulse Rate 73 11/30/22 10:07 Respiratory Rate 18 11/30/22 10:07 Blood Pressure 176/89 11/30/22 10:07 O2 Sat by Pulse Oximetry 95 11/30/22 10:07 Pain Scale Pain Intensity 4 - Physical Exam General Appearance: no apparent distress, alert, anxiety Eye Exam: PERRL/EOMI, eyes nml inspection Ears, Nose, Throat Exam: normal ENT inspection, moist mucous membranes Neck Exam: normal inspection, non-tender, supple, full range of motion Respiratory Exam: normal breath sounds, lungs clear, airway intact, No chest tenderness, No respiratory distress Cardiovascular Exam: regular rate/rhythm, normal heart sounds, normal peripheral pulses Gastrointestinal/Abdomen Exam: soft, normal bowel sounds, No tenderness Rectal Exam: not done Back Exam: normal inspection, normal range of motion, No CVA tenderness, No vertebral tenderness Extremity Exam: normal inspection, normal range of motion, pelvis stable Neurologic Exam: alert, oriented x 3, cooperative, 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 tested, normal mood/affect, nml cerebellar function, nml station & gait, sensation nml Skin Exam: normal color, warm, dry Lymphatic Exam: No adenopathy SpO2 Interpretation: normal O2 Delivery: Room Air - Course Nursing assessment & vital signs reviewed: Yes Ordered Tests: Active Orders 24 hr Category Date Time Status Customer Support Consultant STAT Care 11/30/22 10:22 Active IV Insertion STAT Care 11/30/22 10:22 Active Pulse Oximetry (ED) STAT Care 11/30/22 10:22 Active HEAD WITHOUT CONTRAST [CT] Stat Exams 11/30/22 10:22 Completed BMP Stat Lab 11/30/22 10:38 Completed CBC W DIFF Stat Lab 11/30/22 10:38 Completed Lab/Rad Data: Laboratory Result Diagrams 11/30/22 10:38 11/30/22 10:38 Laboratory Results 11/30/22 11/30/22 Range/Units 10:38 10:38 WBC 4.5 (4.0-10.5) x10^3/uL RBC 3.29 L (4.1-5.6) x10^6/uL Hgb 9.5 L (12.5-18.0) g/dL Hct 30.8 L (42-50) % MCV 93.6 (78-100) fL MCH 28.9 (26-32) pg MCHC 30.8 L (32-36) g/dL RDW 14.6 H (11.5-14.0) % Plt Count 171 (150-450) x10^3/uL MPV 11.0 (7.5-11.0) fL Gran % 79.2 H (36.0-66.0) % Immature Gran % (Auto) 0.2 (0.00-0.4) % Nucleat RBC Rel Count 0.0 (0.00-0.1) % Eos # (Auto) 0.06 (0-0.5) x10^3/uL Immature Gran # (Auto) 0.01 (0.00-0.03) x10^3u/L Absolute Lymphs (auto) 0.59 L (1.0-4.6) x10^3/uL Absolute Monos (auto) 0.27 (0.0-1.3) x10^3/uL Absolute Nucleated RBC 0.00 (0.00-0.01) x10^3u/L Lymphocytes % 13.1 L (24.0-44.0) % Monocytes % 6.0 (0.0-12.0) % Eosinophils % 1.3 (0.00-5.0) % Basophils % 0.2 (0.0-0.4) % Absolute Granulocytes 3.55 (1.4-6.9) x10^3/uL Basophils # 0.01 (0-0.4) x10^3/uL Sodium 143 (137-145) mmol/L Potassium 4.4 (3.5-5.1) mmol/L Chloride 111 H (98-107) mmol/L Carbon Dioxide 28 (22-30) mmol/L Anion Gap 7.4 (5-15) MEQ/L BUN 29 H (9-20) mg/dL Creatinine 1.25 (0.66-1.25) mg/dL Estimated GFR > 60.0 ML/MIN Glucose 147 H (74-106) mg/dL Calcium 8.3 L (8.4-10.2) mg/dL Slides for Path Review YES - Progress Progress: improved Progress Note: 11/30/22 11:33 CT scan of the head without contrast shows a continuing nonacute senile brain Patient's medical issue is 1 of moderate complexity. This is based on patient's medical history as well as complaint and physical findings. The above prompted me to obtain lab draws as well as CAT scan of the head. Based on the results of the above plus review of the patient's past medical history and medication list and drug allergy list, and based on the patient's vital signs returning to normal values, the patient may be discharged to home with no new changes in his medication. He is to follow-up with his prescribing physicians for further evaluation management. Counseled pt/family regarding: lab results, diagnosis, need for follow-up, rad results Medical Desision Making - External Record(s) Reviewed Records reviewed as a part of evaluation & management: Inpatient - Discussion of managment Reviewed:: Test results Agreed on:: Treatment plan, need for follow-up - Social Determinants of Health Limited access to: transportation - Diagnostic Testing Diagnostic test were ordered, analyzed, and reviewed by me: Yes Radiological Interpretation: Reviewed by me, Teleradiologist Report - Risk of complications Low Risk: Low risk of morbidity from additional dx testing or treatment - Departure Departure Disposition: Home Clinical Impression: Hypertension Condition: Stable Critical Care Time: No Referrals: NICCI CLAROS MD [Primary Care Provider] - Follow up/PCP as directed Additional Instructions: Continue your medication as prescribed. Follow-up with your prescribing physician as needed.
[2022-11-30 10:39] LABS: Absolute Neutrophil Ct (ANC) 3.55 x10^3/uL (1.4-6.9); BASOPHIL % 0.2 % (0.0-0.4); Basophil (Absolute #) 0.01 x10^3/uL (0-0.4); Eosinophil % 1.3 % (0.00-5.0); Eosinophil (Absolute #) 0.06 x10^3/uL (0-0.5); Hematocrit 30.8 % (42-50); Hemoglobin 9.5 g/dL (12.5-18.0); IMMATURE GRAN # 0.01 x10^3u/L (0.00-0.03); IMMATURE GRAN % 0.2 % (0.00-0.4); Lymphocyte (Absolute #) 0.59 x10^3/uL (1.0-4.6); Lymphocytes % 13.1 % (24.0-44.0); Mean Cell Volume 93.6 fL (78-100); Mean Corpuscular Hemoglobin 28.9 pg (26-32); Mean Corpuscular Hgb Concent. 30.8 g/dL (32-36); Monocyte (Absolute #) 0.27 x10^3/uL (0.0-1.3); Neutrophil % 79.2 % (36.0-66.0); Platelet Count 171 x10^3/uL (150-450); Red Blood Count 3.29 x10^6/uL (4.1-5.6); Red Cell Distribution Width 14.6 % (11.5-14.0); White Blood Count 4.5 x10^3/uL (4.0-10.5)
[2022-11-30 10:54] LABS: ANION GAP 7.4 MEQ/L (5-15); BLOOD UREA NITROGEN 29 mg/dL (9-20); CHLORIDE 111 mmol/L (98-107); Calcium 8.3 mg/dL (8.4-10.2); Carbon Dioxide 28 mmol/L (22-30); Creatinine 1 1.25 mg/dL (0.66-1.25); EST GLOMERULAR FILTRATION RATE > 60.0 ML/MIN; Glucose 147 mg/dL (74-106); Potassium 4.4 mmol/L (3.5-5.1); SODIUM 143 mmol/L (137-145)
[2022-11-30 11:19] LABS: Slide Review 1 YES
--- NOTE | 2022-11-30 11:30 | XRAY ---
Indication: Headache. Hypertension. Multiple contiguous axial images obtained through the head without contrast. Comparison: October 23 and 2022. Again age-appropriate global atrophy and minimal periventricular degenerative micro-ischemia bilaterally. No acute intracranial hemorrhage, abnormal extra-axial fluid collection, or mass effect. Fourth ventricle is midline without hydrocephalus. Bony calvarium intact. Visualized paranasal sinuses and mastoid air cells are clear. Impression: Continue nonacute senile brain.
[2022-11-30 11:47] VITALS: BP 159/79; PULSE 72; O2SAT 78
== END 2022-11-30 11:50 | disposition home or self-care (01) ==
LOC: ED 09:44
DX: I10 Essential (primary) hypertension (principal); R51.9 Headache, unspecified; E78.5 Hyperlipidemia, unspecified; E11.9 Type 2 diabetes mellitus without complications; Z79.02 Long term (current) use of antithrombotics/antiplatelets; Z79.4 Long term (current) use of insulin; Z79.84 Long term (current) use of oral hypoglycemic drugs; Z79.899 Other long term (current) drug therapy; Z28.310 Unvaccinated for COVID-19
CPT/HCPCS: 36415; 70450; 80048; 85025; 94760; 99283

== ENCOUNTER 2022-12-18 11:18 | Emergency (ER) | payer MEDICARE, OTHER ==
[2022-12-18] MEDS ORDERED: Sodium Chloride 0.9% 1000 ML 1,000 ML IV STA (11:39)
[2022-12-18] MEDS ORDERED: Sodium Chloride 0.9% 1000 ML 1,000 ML ONE (11:50)
[2022-12-18 12:16] LABS: Absolute Neutrophil Ct (ANC) 3.38 x10^3/uL (1.4-6.9); Basophil (Absolute #) 0 x10^3/uL (0-0.4); Eosinophil % 1.1 % (0.00-5.0); Eosinophil (Absolute #) 0.05 x10^3/uL (0-0.5); Hematocrit 31.3 % (42-50); Hemoglobin 9.7 g/dL (12.5-18.0); IMMATURE GRAN # 0.02 x10^3u/L (0.00-0.03); IMMATURE GRAN % 0.5 % (0.00-0.4); Lymphocyte (Absolute #) 0.58 x10^3/uL (1.0-4.6); Lymphocytes % 13.2 % (24.0-44.0); Mean Cell Volume 92.9 fL (78-100); Mean Corpuscular Hemoglobin 28.8 pg (26-32); Monocyte (Absolute #) 0.36 x10^3/uL (0.0-1.3); Monocytes % 8.2 % (0.0-12.0); Platelet Count 166 x10^3/uL (150-450); Red Blood Count 3.37 x10^6/uL (4.1-5.6); Red Cell Distribution Width 14.6 % (11.5-14.0); White Blood Count 4.4 x10^3/uL (4.0-10.5)
[2022-12-18 12:31] LABS: ALBUMIN 3.1 g/dL (3.5-5.0); ALKALINE PHOSPHATASE 110 U/L (38-126); ANION GAP 8.8 MEQ/L (5-15); BLOOD UREA NITROGEN 36 mg/dL (9-20); CHLORIDE 108 mmol/L (98-107); Calcium 8.2 mg/dL (8.4-10.2); Carbon Dioxide 31 mmol/L (22-30); Creatinine 1 1.22 mg/dL (0.66-1.25); EST GLOMERULAR FILTRATION RATE > 60.0 ML/MIN; Glucose 149 mg/dL (74-106); Potassium 3.9 mmol/L (3.5-5.1); SGOT/AST 24 U/L (17-59); SGPT/ALT 21 U/L (0-50); SODIUM 144 mmol/L (137-145); Total Protein 5.5 g/dL (6.3-8.2)
--- NOTE | 2022-12-18 12:36 | XRAY ---
Indication: Fever and cough. Comparison: December 17, 2022 Portable chest unchanged again demonstrating minimal left midlung subsegmental atelectasis/scarring and right base calcified granuloma. Heart not enlarged for AP portable technique again with CABG. No new/acute findings.
[2022-12-18 12:51] LABS: INFLUENZA A NEGATIVE (NEGATIVE); INFLUENZA B NEGATIVE (NEGATIVE); RESPIRATORY SYNCTIAL VIRUS NEGATIVE (Negative); SARS-CoV-2 Xpert Express NEGATIVE (NEGATIVE)
[2022-12-18 13:32] VITALS: O2SAT 98
--- NOTE | 2022-12-18 14:07 | ERPHSYRPT ---
- History of Present Illness Time Seen by Provider: 12/18/22 11:45 Source: patient Exam Limitations: no limitations Patient Subjective Stated Complaint: pt here for runny nose, aches, cough,not sleeping well, no fever Triage Nursing Assessment: pt alert, walked in with cane, resp easy, skin w/d/p, nonproductive cough, face mask in place, abd soft, Physician History: Patient is a 67-year-old male who presents with a complaint of cough for 3 days. He also has noted a loss of taste and smell and has been exhausted. Has had some night sweats some shortness of breath denies any fever or chills. Timing/Duration: day(s) (3) Cough Quality/Degree: dry cough Possible Cause: occasional episodes Modifying Factors: Improves With: nothing Allergies/Adverse Reactions: gabapentin Adverse Reaction (Verified 12/18/22 11:32) "got kind of loopy" Home Medications: Losartan Potassium 50 mg [Cozaar 50 MG] 50 mg PO DAILY 05/26/19 [History] Furosemide 40 mg [Lasix 40 MG] 40 mg PO DAILY 07/18/19 [History] Ezetimibe 10 mg PO DAILY 04/26/20 [History] Clopidogrel Bisulfate [PLAVIX Tablet] 75 mg PO DAILY 02/10/21 [History] Hydrochlorothiazide 25 mg [hydroDIURIL 25 MG] 25 mg PO DAILY 02/10/21 [History] carvediloL [Carvedilol] 25 mg PO BID 02/10/21 [History] Allopurinol 100 mg [Zyloprim 100 mg] 100 mg PO BID 06/06/21 [History] Aspirin EC 81 mg [Ecotrin 81 mg] 81 mg PO DAILY 10/23/22 [History] Furosemide 40 mg [Lasix 40 MG] 40 mg PO 1400 PRN 11/05/22 [History] Insulin Glargine,Hum.rec.anlog [Lantus] 20 unit SQ QHS 11/05/22 [History] Metformin HCl [Metformin HCl ER] 1,000 mg PO BID 11/05/22 [History] Hx Tetanus, Diphtheria Vaccination/Date Given: Yes Hx Influenza Vaccination/Date Given: Yes Hx Pneumococcal Vaccination/Date Given: Yes Travel Risk - International Travel Have you traveled outside of the country in past 3 weeks: No - Coronavirus Screening Are you exhibiting any of the following symptoms?: Yes Symptoms: Cough: New Onset, Loss of Taste or Smell, Headaches/Body Aches/Fatigue Close contact with a COVID-19 positive Pt in past 14-21 Days: No - Vaccine Status Have you recieved a Covid-19 vaccination: Yes 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 Dates if Unknown: ? - Review of Systems Constitutional: Lethargy, Weakness, No Fever, No Chills Eyes: No Symptoms Ears, Nose, & Throat: No Symptoms Respiratory: Cough, No Dyspnea Cardiac: No Chest Pain, No Edema, No Syncope Abdominal/Gastrointestinal: No Abdominal Pain, No Nausea, No Vomiting, No Diarrhea Genitourinary Symptoms: No Dysuria Musculoskeletal: No Back Pain, No Neck Pain Skin: No Rash Neurological: No Dizziness, No Focal Weakness, No Sensory Changes Psychological: No Symptoms Endocrine: No Symptoms All Other Systems: Reviewed and Negative - Past Medical History Pertinent Past Medical History: Yes Neurological History: No Pertinent History ENT History: No Pertinent History Cardiac History: Angina, Coronary Artery Disease, High Cholesterol, Hypertension, Myocardial Infarction ([place]) Respiratory History: COPD Endocrine Medical History: Diabetes Type II Musculoskeletal History: Osteoarthritis GI Medical History: No Pertinent History History: No Pertinent History Psycho-Social History: No Pertinent History Male Reproductive Disorders: No Pertinent History Other Medical History: fractured ribs, anemia, gout - Past Surgical History Past Surgical History: Yes Neuro Surgical History: No Pertinent History Cardiac: CABG, Other Respiratory: Chest Surgery Gastrointestinal: No Pertinent History Genitourinary: No Pertinent History Musculoskeletal: Orthopedic Surgery Male Surgical History: No Pertinent History Other Surgical History: umbilical, triple bypass, L shoulder - Social History Smoking Status: Former smoker How long have you smoked: 53 Exposure to second hand smoke: Yes Drug Use: none Patient Lives Alone: No - Nursing Vital Signs Nursing Vital Signs: Initial Vital Signs Respiratory Rate 20 12/18/22 11:39 O2 Sat by Pulse Oximetry 95 12/18/22 11:39 Pain Scale Pain Intensity 4 - Physical Exam General Appearance: mild distress, alert Eye Exam: PERRL/EOMI, eyes nml inspection Ears, Nose, Throat Exam: normal ENT inspection, TMs normal, pharynx normal, moist mucous membranes Neck Exam: normal inspection, non-tender, supple, full range of motion Respiratory Exam: lungs clear, crackles/rales, No respiratory distress Cardiovascular Exam: regular rate/rhythm, normal heart sounds Gastrointestinal/Abdomen Exam: soft, No tenderness Back Exam: normal inspection, No CVA tenderness, No vertebral tenderness Extremity Exam: normal inspection, normal range of motion Neurologic Exam: alert, oriented x 3, cooperative, normal mood/affect, sensation nml, No motor deficits Skin Exam: normal color, warm, dry, No rash Lymphatic Exam: No adenopathy SpO2: 98 - Course Nursing assessment & vital signs reviewed: Yes EKG Interpreted by Me: RATE, Sinus Rhythm, NORMAL AXIS, Left Bundle Branch Block, Non-specific ST Changes - Radiology Exams Chest X-ray Interpretation: Reviewed by me Ordered Tests: Active Orders 24 hr Category Date Time Status EKG-ER Only STAT Care 12/18/22 11:39 Active IV Insertion STAT Care 12/18/22 11:39 Active CHEST 1 VIEW (PORTABLE) Stat Exams 12/18/22 11:40 Completed BLOOD CULTURE Stat Lab 12/18/22 12:06 Received CBC W DIFF Stat Lab 12/18/22 12:00 Completed CMP Stat Lab 12/18/22 12:00 Completed Lactic Acid Stat Lab 12/18/22 12:00 Completed PROCALCITONIN Stat Lab 12/18/22 12:00 Completed TROPONIN Q4H Lab 12/18/22 11:45 Completed TROPONIN Q4H Lab 12/18/22 15:45 Ordered TROPONIN Q4H Lab 12/18/22 19:45 Ordered UA W/RFX UR CULTURE Stat Lab 12/18/22 11:39 Ordered Medication Summary Discontinued Medications Generic Name Dose Route Start Last Admin Trade Name Freq PRN Reason Stop Dose Admin Sodium Chloride 1,000 mls @ 999 mls/hr 12/18/22 11:39 12/18/22 13:00 Sodium Chloride 0.9% 1000 Ml IV 12/18/22 12:39 Infused .Q1H1M STA Infusion Sodium Chloride Confirm 12/18/22 11:50 Sodium Chloride 0.9% 1000 Ml Administered 12/18/22 11:51 Dose 1,000 mls @ ud .ROUTE .STK-MED ONE Lab/Rad Data: Laboratory Result Diagrams 12/18/22 12:00 12/18/22 12:00 Laboratory Results 12/18/22 12/18/22 12/18/22 Range/Units 12:06 12:06 12:00 WBC (4.0-10.5) x10^3/uL RBC (4.1-5.6) x10^6/uL Hgb (12.5-18.0) g/dL Hct (42-50) % MCV (78-100) fL MCH (26-32) pg MCHC (32-36) g/dL RDW (11.5-14.0) % Plt Count (150-450) x10^3/uL MPV (7.5-11.0) fL Gran % (36.0-66.0) % Immature Gran % (Auto) (0.00-0.4) % Nucleat RBC Rel Count (0.00-0.1) % Eos # (Auto) (0-0.5) x10^3/uL Immature Gran # (Auto) (0.00-0.03) x10^3u/L Absolute Lymphs (auto) (1.0-4.6) x10^3/uL Absolute Monos (auto) (0.0-1.3) x10^3/uL Absolute Nucleated RBC (0.00-0.01) x10^3u/L Lymphocytes % (24.0-44.0) % Monocytes % (0.0-12.0) % Eosinophils % (0.00-5.0) % Basophils % (0.0-0.4) % Absolute Granulocytes (1.4-6.9) x10^3/uL Basophils # (0-0.4) x10^3/uL Sodium (137-145) mmol/L Potassium (3.5-5.1) mmol/L Chloride (98-107) mmol/L Carbon Dioxide (22-30) mmol/L Anion Gap (5-15) MEQ/L BUN (9-20) mg/dL Creatinine (0.66-1.25) mg/dL Estimated GFR ML/MIN Glucose (74-106) mg/dL Lactic Acid (0.4-2.0) Calcium (8.4-10.2) mg/dL Total Bilirubin (0.2-1.3) mg/dL AST (17-59) U/L ALT (0-50) U/L Alkaline Phosphatase (38-126) U/L Troponin I (0.000-0.034) ng/mL Serum Total Protein (6.3-8.2) g/dL Albumin (3.5-5.0) g/dL Procalcitonin 0.097 H (0.030-0.080) ng/mL Influenza Type A Ag NEGATIVE (NEGATIVE) Influenza Type B Ag NEGATIVE (NEGATIVE) RSV (PCR) NEGATIVE (Negative) SARS-CoV-2 (PCR) NEGATIVE (NEGATIVE) Group A Strep Antibody NOT DETECTED (NEGATIVE) 12/18/22 12/18/22 12/18/22 Range/Units 12:00 12:00 12:00 WBC 4.4 (4.0-10.5) x10^3/uL RBC 3.37 L (4.1-5.6) x10^6/uL Hgb 9.7 L (12.5-18.0) g/dL Hct 31.3 L (42-50) % MCV 92.9 (78-100) fL MCH 28.8 (26-32) pg MCHC 31.0 L (32-36) g/dL RDW 14.6 H (11.5-14.0) % Plt Count 166 (150-450) x10^3/uL MPV 12.0 H (7.5-11.0) fL Gran % 77.0 H (36.0-66.0) % Immature Gran % (Auto) 0.5 H (0.00-0.4) % Nucleat RBC Rel Count 0.0 (0.00-0.1) % Eos # (Auto) 0.05 (0-0.5) x10^3/uL Immature Gran # (Auto) 0.02 (0.00-0.03) x10^3u/L Absolute Lymphs (auto) 0.58 L (1.0-4.6) x10^3/uL Absolute Monos (auto) 0.36 (0.0-1.3) x10^3/uL Absolute Nucleated RBC 0.00 (0.00-0.01) x10^3u/L Lymphocytes % 13.2 L (24.0-44.0) % Monocytes % 8.2 (0.0-12.0) % Eosinophils % 1.1 (0.00-5.0) % Basophils % 0.0 (0.0-0.4) % Absolute Granulocytes 3.38 (1.4-6.9) x10^3/uL Basophils # 0 (0-0.4) x10^3/uL Sodium 144 (137-145) mmol/L Potassium 3.9 (3.5-5.1) mmol/L Chloride 108 H (98-107) mmol/L Carbon Dioxide 31 H (22-30) mmol/L Anion Gap 8.8 (5-15) MEQ/L BUN 36 H (9-20) mg/dL Creatinine 1.22 (0.66-1.25) mg/dL Estimated GFR > 60.0 ML/MIN Glucose 149 H (74-106) mg/dL Lactic Acid 1.3 (0.4-2.0) Calcium 8.2 L (8.4-10.2) mg/dL Total Bilirubin 0.30 (0.2-1.3) mg/dL AST 24 (17-59) U/L ALT 21 (0-50) U/L Alkaline Phosphatase 110 (38-126) U/L Troponin I (0.000-0.034) ng/mL Serum Total Protein 5.5 L (6.3-8.2) g/dL Albumin 3.1 L (3.5-5.0) g/dL Procalcitonin (0.030-0.080) ng/mL Influenza Type A Ag (NEGATIVE) Influenza Type B Ag (NEGATIVE) RSV (PCR) (Negative) SARS-CoV-2 (PCR) (NEGATIVE) Group A Strep Antibody (NEGATIVE) 12/18/22 Range/Units 11:45 WBC (4.0-10.5) x10^3/uL RBC (4.1-5.6) x10^6/uL Hgb (12.5-18.0) g/dL Hct (42-50) % MCV (78-100) fL MCH (26-32) pg MCHC (32-36) g/dL RDW (11.5-14.0) % Plt Count (150-450) x10^3/uL MPV (7.5-11.0) fL Gran % (36.0-66.0) % Immature Gran % (Auto) (0.00-0.4) % Nucleat RBC Rel Count (0.00-0.1) % Eos # (Auto) (0-0.5) x10^3/uL Immature Gran # (Auto) (0.00-0.03) x10^3u/L Absolute Lymphs (auto) (1.0-4.6) x10^3/uL Absolute Monos (auto) (0.0-1.3) x10^3/uL Absolute Nucleated RBC (0.00-0.01) x10^3u/L Lymphocytes % (24.0-44.0) % Monocytes % (0.0-12.0) % Eosinophils % (0.00-5.0) % Basophils % (0.0-0.4) % Absolute Granulocytes (1.4-6.9) x10^3/uL Basophils # (0-0.4) x10^3/uL Sodium (137-145) mmol/L Potassium (3.5-5.1) mmol/L Chloride (98-107) mmol/L Carbon Dioxide (22-30) mmol/L Anion Gap (5-15) MEQ/L BUN (9-20) mg/dL Creatinine (0.66-1.25) mg/dL Estimated GFR ML/MIN Glucose (74-106) mg/dL Lactic Acid (0.4-2.0) Calcium (8.4-10.2) mg/dL Total Bilirubin (0.2-1.3) mg/dL AST (17-59) U/L ALT (0-50) U/L Alkaline Phosphatase (38-126) U/L Troponin I 0.031 (0.000-0.034) ng/mL Serum Total Protein (6.3-8.2) g/dL Albumin (3.5-5.0) g/dL Procalcitonin (0.030-0.080) ng/mL Influenza Type A Ag (NEGATIVE) Influenza Type B Ag (NEGATIVE) RSV (PCR) (Negative) SARS-CoV-2 (PCR) (NEGATIVE) Group A Strep Antibody (NEGATIVE) - Progress Progress: improved Air Movement: good Blood Culture(s) Obtained: Yes Antibiotics given: Yes Medical Desision Making - Diagnostic Testing Diagnostic test were ordered, analyzed, and reviewed by me: Yes Radiological Interpretation: Interpreted by me, Reviewed by me - Risk of complications Low Risk: Low risk of morbidity from additional dx testing or treatment The pt has a mod risk of morbidity or mortality based on: Need for prescription drug management - Departure Clinical Impression: Pneumonia Condition: Stable Critical Care Time: No Referrals: NICCI CLAROS MD [Primary Care Provider] - Follow up/PCP as directed Instructions: Pneumonia, Adult (DC) Prescriptions: Cephalexin Mh 500 mg [Keflex 500 mg] 500 mg PO Q6H 10 Days #40 cap
[2022-12-18 14:29] LABS: Slide Review 1 YES
[2022-12-18 14:36] VITALS: BP 166/69; PULSE 62
== END 2022-12-18 14:50 | disposition home or self-care (01) ==
LOC: ED 11:18
DX: J18.9 Pneumonia, unspecified organism (principal); R05.1 Acute cough; R43.8 Other disturbances of smell and taste; R53.83 Other fatigue; Z79.02 Long term (current) use of antithrombotics/antiplatelets; Z79.4 Long term (current) use of insulin; Z79.84 Long term (current) use of oral hypoglycemic drugs; Z79.899 Other long term (current) drug therapy; E78.5 Hyperlipidemia, unspecified; I10 Essential (primary) hypertension; E11.9 Type 2 diabetes mellitus without complications
CPT/HCPCS: 0241U; 36000; 36415; 71045; 80053; 83605; 84145; 84484; 85025; 87040; 87651; 93005; 96360; 99284

== ENCOUNTER 2024-03-15 16:07 | Inpatient (IN) | payer MEDICARE, OTHER ==
--- NOTE | 2024-03-15 16:36 | ERPHSYRPT ---
- History of Present Illness Time Seen by Provider: 03/15/24 16:09 Source: patient, EMS Exam Limitations: no limitations Patient Subjective Stated Complaint: SOB Triage Nursing Assessment: Patient brought into ED per EMS and transferred to bed with assist of 2. Patient A+O X 3. Patient's skin pink, warm and dry. Patient complains of SOB for the past couple of days that has increased today. Upon arrival EMS states O2 sat was low 90s and patient was given Duoneb. Patient denies pain or discomfort, but states he has pain when taking a deep breath at times. Lungs noted to be diminished. Initial O2 sat noted to be 89% on room air. O2 at 3 liters per N/C Applied. Physician History: 68-year-old male with history of COPD, congestive heart failure, hypertension, hyperlipidemia presented in the ER with 2 to 3 days history of progressively worsening shortness of breath. Patient reports minimal productive cough. Rep orts shortness of breath getting worse with activity and partially relieved with resting. Earlier prior to arrival he was having some left-sided chest discomfort/pain mild to moderate which improved and route to the ER. Patient oxygen saturation was in low 90s, given DuoNeb, placed on 3 L oxygen and currently 94%. Patient reports he does have oxygen at home but does not use it. No fever or chills reported. Allergies/Adverse Reactions: gabapentin Adverse Reaction (Verified 03/15/24 16:11) "got kind of loopy" Home Medications: Losartan Potassium 50 mg [Cozaar 50 MG] 50 mg PO DAILY 05/26/19 [History] Ezetimibe 10 mg PO DAILY 04/26/20 [History] Clopidogrel Bisulfate [PLAVIX Tablet] 75 mg PO DAILY 02/10/21 [History] Allopurinol 100 mg [Zyloprim 100 mg] 200 mg PO DAILY 06/06/21 [History] Aspirin EC 81 mg [Ecotrin 81 mg] 81 mg PO DAILY 10/23/22 [History] Metformin HCl [Metformin HCl ER] 1,000 mg PO BID 11/05/22 [History] Atorvastatin Calcium 1 tab PO DAILY 03/15/24 [History] PANTOPRAZOLE 40 mg Tablet [Protonix 40MG Tablet] 1 tab PO BID 03/15/24 [History] Sucralfate 1 gm [Carafate 1 GM] 1 tab PO QID 03/15/24 [History] Hx Tetanus, Diphtheria Vaccination/Date Given: Yes Hx Influenza Vaccination/Date Given: Yes Hx Pneumococcal Vaccination/Date Given: Yes Immunizations Up to Date: Yes Travel Risk - International Travel Have you traveled outside of the country in past 3 weeks: No - Emerging Infectious Disease Are you exhibiting symptoms associated with any current EIDs: No - Review of Systems Constitutional: Fatigue Eyes: No Symptoms Ears, Nose, & Throat: No Symptoms Respiratory: Cough, Dyspnea, Dyspnea on Exertion ([facility]) Cardiac: Chest Pain, Edema Abdominal/Gastrointestinal: No Symptoms Genitourinary Symptoms: No Symptoms Musculoskeletal: Myalgias Skin: No Symptoms Neurological: No Symptoms Endocrine: No Symptoms Hematologic/Lymphatic: No Symptoms Immunological/Allergic: No Symptoms - Past Medical History Pertinent Past Medical History: Yes Neurological History: No Pertinent History ENT History: No Pertinent History Cardiac History: Angina, Coronary Artery Disease, High Cholesterol, Hypertension, Myocardial Infarction ([place]) Respiratory History: COPD Endocrine Medical History: Diabetes Type II Musculoskeletal History: Osteoarthritis GI Medical History: No Pertinent History History: No Pertinent History Psycho-Social History: No Pertinent History Male Reproductive Disorders: No Pertinent History Other Medical History: fractured ribs, anemia, gout - Past Surgical History Past Surgical History: Yes Neuro Surgical History: No Pertinent History Cardiac: CABG, Other Respiratory: Chest Surgery Gastrointestinal: No Pertinent History Genitourinary: No Pertinent History Musculoskeletal: Orthopedic Surgery Male Surgical History: No Pertinent History Other Surgical History: umbilical, triple bypass, L shoulder - Social History Smoking Status: Former smoker How long have you smoked: 53 Exposure to second hand smoke: No Drug Use: marijuana Patient Lives Alone: No - Social Determinants of Health Will the patient participate in the screening: Yes Do you worry about a steady place to live?: No Do you have any problems with any of the following?: No known problems In the past 12 months,have you had to go without utilities?: No Transportation Issues: Yes Has anyone in your support network made you feel unsafe?: No Have you or anyone in your house had to go without enough: Yes - Nursing Vital Signs Nursing Vital Signs: Initial Vital Signs Temperature 97.6 F 03/15/24 16:13 Pulse Rate 89 03/15/24 16:13 Respiratory Rate 20 03/15/24 16:13 Blood Pressure 173/103 03/15/24 16:13 O2 Sat by Pulse Oximetry 100 03/15/24 16:13 Pain Scale Pain Intensity 0 - Physical Exam General Appearance: no apparent distress, alert Eye Exam: PERRL/EOMI Ears, Nose, Throat Exam: hearing grossly normal, normal ENT inspection, normal pharynx Neck Exam: normal inspection, non-tender, supple, full range of motion Respiratory Exam: diminished breath sounds, wheezing Cardiovascular/Chest Exam: normal heart sounds, regular rate/rhythm, edema Abdominal/Gastrointestinal Exam: soft, normal bowel sounds, No tenderness Extremity Exam: non-tender, normal range of motion Neurologic Exam: alert, oriented x 3, cooperative Skin Exam: normal color SpO2 Interpretation: O2 applied SpO2: 89 O2 Delivery: Nasal Cannula - Course EKG Interpreted by Me: RATE (78), Sinus Rhythm, Left [place] Deviation, NORMAL INTERVALS, Left Bundle Branch Block Ordered Tests: Active Orders 24 hr Category Date Time Status Animal Cruelty Investigation Supervisor STAT Care 03/15/24 16:29 Active EKG-ER Only STAT Care 03/15/24 16:28 Active IV Insertion STAT Care 03/15/24 16:28 Active Oxygen-ED Only Nasal Cannula 3 lpm Care 03/15/24 16:28 Active ACO SDOH Referral ONCE Cons 03/15/24 16:24 Active CHEST 1 VIEW (PORTABLE) Stat Exams 03/15/24 16:29 Taken ARTERIAL BLOOD GASES Stat Lab 03/15/24 16:55 Completed BLOOD CULTURE Stat Lab 03/15/24 17:08 Received CBC W DIFF Stat Lab 03/15/24 16:50 Completed CMP Stat Lab 03/15/24 16:50 Completed CULTURE,URINE Stat Lab 03/15/24 17:35 Received Lactic Acid Stat Lab 03/15/24 16:55 Completed MAGNESIUM Stat Lab 03/15/24 16:50 Completed NT PRO BNPII Stat Lab 03/15/24 16:50 Completed PROCALCITONIN Stat Lab 03/15/24 16:50 Completed TROPONIN Q4H Lab 03/15/24 16:50 Completed TROPONIN Q4H Lab 03/15/24 20:30 Ordered TROPONIN Q4H Lab 03/16/24 00:30 Ordered UA W/RFX UR CULTURE Stat Lab 03/15/24 17:35 Completed Transfer Order Routine Transfer 03/15/24 Ordered Medication Summary Generic Name Dose Route Start Last Admin Trade Name Esther PRN Reason Stop Dose Admin Azithromycin 500 mg in 250 mls @ 250 mls/hr 03/15/24 18:04 03/15/24 18:29 Zithromax 500 Mg/ 250 Ml Nacl Premix IV 03/15/24 19:03 250 ml/hr STAT STA 250 mls/hr Administration Discontinued Medications Generic Name Dose Route Start Last Admin Trade Name Esther PRN Reason Stop Dose Admin Albuterol/Ipratropium 3 ml 03/15/24 16:28 03/15/24 16:46 Ipratropium/Albuterol Sulfate 3 Ml Ampul.Neb IH 03/15/24 16:29 3 ml STAT ONE Administration Albuterol/Ipratropium Confirm 03/15/24 16:42 Ipratropium/Albuterol Sulfate 3 Ml Ampul.Neb Administered 03/15/24 16:43 Dose 3 ml IH .STK-MED ONE Ceftriaxone Sodium 2 gm in 100 mls @ 200 mls/hr 03/15/24 18:04 03/15/24 18:39 Rocephin 2 Gm/100 Ml Nacl IV 03/15/24 18:33 Infused STAT ONE Infusion Ceftriaxone Sodium Confirm 03/15/24 18:07 Rocephin 2 Gm/100 Ml Nacl Administered 03/15/24 18:08 Dose 2 gm in 100 mls @ ud IV .STK-MED ONE Azithromycin Confirm 03/15/24 18:26 Zithromax 500 Mg/ 250 Ml Nacl Premix Administered 03/15/24 18:27 Dose 500 mg in 250 mls @ ud IV .STK-MED ONE Lab/Rad Data: Laboratory Result Diagrams 03/15/24 16:50 03/15/24 16:50 Laboratory Results 03/15/24 03/15/24 03/15/24 Range/Units 17:35 16:55 16:50 WBC (4.0-10.5) x10^3/uL RBC (4.1-5.6) x10^6/uL Hgb (12.5-18.0) g/dL Hct (42-50) % MCV (78-100) fL MCH (26-32) pg MCHC (32-36) g/dL RDW (11.5-14.0) % Plt Count (150-450) x10^3/uL MPV (7.5-11.0) fL Gran % (36.0-66.0) % Immature Gran % (Auto) (0.00-0.4) % Nucleat RBC Rel Count (0.00-0.1) % Eos # (Auto) (0-0.5) x10^3/uL Immature Gran # (Auto) (0.00-0.03) x10^3u/L Absolute Lymphs (auto) (1.0-4.6) x10^3/uL Absolute Monos (auto) (0.0-1.3) x10^3/uL Absolute Nucleated RBC (0.00-0.01) x10^3u/L Lymphocytes % (24.0-44.0) % Monocytes % (0.0-12.0) % Eosinophils % (0.00-5.0) % Basophils % (0.0-0.4) % Absolute Granulocytes (1.4-6.9) x10^3/uL Basophils # (0-0.4) x10^3/uL Puncture Site LEFT RADIAL pCO2 36 (35-45) mmHg pO2 99 (75-100) mmHg Base Excess -2.2 L (-2.0-2.0) O2 Saturation 94.8 (94-100) g/dF ABG pH 7.40 (7.35-7.45) ABG HCO3 22.3 (22-28) ABG O2 Sat (Measured) 98.4 (95-100) % Jeffrey Test YES A-a Gradient 84 a/A Ratio 0.54 Hemoglobin 9.5 Carboxyhemoglobin 3.1 (0.0-6.9) % THgb Methemoglobin 0.6 L (1.4-1.5) % Temperature 37.0 C POC O2 Flow Rate 32 % Sodium (135-145) mmol/L Potassium 4.7 (3.5-5.1) mmol/L Chloride (98-107) mmol/L Carbon Dioxide (22-30) mmol/L Anion Gap (5-15) MEQ/L BUN (9-20) mg/dL Creatinine (0.66-1.25) mg/dL Estimated GFR ML/MIN Glucose (74-106) mg/dL Lactic Acid 2.6 H (0.4-2.0) Calcium (8.4-10.2) mg/dL Magnesium (1.6-2.3) mg/dL Total Bilirubin (0.2-1.3) mg/dL AST (17-59) U/L ALT (0-50) U/L Alkaline Phosphatase (38-126) U/L Troponin I (0.000-0.033) ng/mL NT-Pro-B Natriuret Pep (<300) pg/mL Serum Total Protein (6.3-8.2) g/dL Albumin (3.5-5.0) g/dL Procalcitonin 0.108 H (0.030-0.080) ng/mL Urine Color Yellow (Yellow) Urine Appearance Clear (Clear) Urine pH 5.5 (4.6-8.0) Ur Specific [place] 1.020 (1.005-1.030) Urine Protein >=1000 A (Negative) Urine Glucose (UA) Negative (Negative) mg/dL Urine Ketones Negative (Negative) Urine Blood Small A (Negative) Urine Nitrite Negative (Negative) Urine Bilirubin Negative (Negative) Urine Urobilinogen 1.0 A (0.2) mg/dL Ur Leukocyte Esterase Negative (Negative) U Hyaline Cast (Auto) 3-5 A (0-2) /LPF Urine Microscopic RBC 0-2 (0-5) /HPF Urine Microscopic WBC 0-2 (0-5) /HPF Ur Epithelial Cells None Seen (None Seen) /HPF Urine Bacteria None Seen (None Seen) /HPF Urine Culture Reflexed ORDERED SEPARATELY (NO) 03/15/24 03/15/24 03/15/24 Range/Units 16:50 16:50 16:50 WBC 5.9 (4.0-10.5) x10^3/uL RBC 3.28 L (4.1-5.6) x10^6/uL Hgb 9.2 L (12.5-18.0) g/dL Hct 30.7 L (42-50) % MCV 93.6 (78-100) fL MCH 28.0 (26-32) pg MCHC 30.0 L (32-36) g/dL RDW 15.9 H (11.5-14.0) % Plt Count 224 (150-450) x10^3/uL MPV 11.1 H (7.5-11.0) fL Gran % 75.8 H (36.0-66.0) % Immature Gran % (Auto) 0.3 (0.00-0.4) % Nucleat RBC Rel Count 0.0 (0.00-0.1) % Eos # (Auto) 0.10 (0-0.5) x10^3/uL Immature Gran # (Auto) 0.02 (0.00-0.03) x10^3u/L Absolute Lymphs (auto) 0.88 L (1.0-4.6) x10^3/uL Absolute Monos (auto) 0.42 (0.0-1.3) x10^3/uL Absolute Nucleated RBC 0.00 (0.00-0.01) x10^3u/L Lymphocytes % 14.9 L (24.0-44.0) % Monocytes % 7.1 (0.0-12.0) % Eosinophils % 1.7 (0.00-5.0) % Basophils % 0.2 (0.0-0.4) % Absolute Granulocytes 4.48 (1.4-6.9) x10^3/uL Basophils # 0.01 (0-0.4) x10^3/uL Puncture Site pCO2 (35-45) mmHg pO2 (75-100) mmHg Base Excess (-2.0-2.0) O2 Saturation (94-100) g/dF ABG pH (7.35-7.45) ABG HCO3 (22-28) ABG O2 Sat (Measured) (95-100) % Jeffrey Test A-a Gradient a/A Ratio Hemoglobin Carboxyhemoglobin (0.0-6.9) % THgb Methemoglobin (1.4-1.5) % Temperature C POC O2 Flow Rate % Sodium 145 (135-145) mmol/L Potassium 4.6 (3.5-5.1) mmol/L Chloride 115 H (98-107) mmol/L Carbon Dioxide 21 L (22-30) mmol/L Anion Gap 12.5 (5-15) MEQ/L BUN 37 H (9-20) mg/dL Creatinine 1.94 H (0.66-1.25) mg/dL Estimated GFR 37.2 ML/MIN Glucose 92 (74-106) mg/dL Lactic Acid (0.4-2.0) Calcium 8.3 L (8.4-10.2) mg/dL Magnesium 1.6 (1.6-2.3) mg/dL Total Bilirubin 0.40 (0.2-1.3) mg/dL AST 29 (17-59) U/L ALT 31 (0-50) U/L Alkaline Phosphatase 173 H (38-126) U/L Troponin I 0.024 (0.000-0.033) ng/mL NT-Pro-B Natriuret Pep 31010 (<300) pg/mL Serum Total Protein 5.7 L (6.3-8.2) g/dL Albumin 2.9 L (3.5-5.0) g/dL Procalcitonin (0.030-0.080) ng/mL Urine Color (Yellow) Urine Appearance (Clear) Urine pH (4.6-8.0) Ur Specific [place] (1.005-1.030) Urine Protein (Negative) Urine Glucose (UA) (Negative) mg/dL Urine Ketones (Negative) Urine Blood (Negative) Urine Nitrite (Negative) Urine Bilirubin (Negative) Urine Urobilinogen (0.2) mg/dL Ur Leukocyte Esterase (Negative) U Hyaline Cast (Auto) (0-2) /LPF Urine Microscopic RBC (0-5) /HPF Urine Microscopic WBC (0-5) /HPF Ur Epithelial Cells (None Seen) /HPF Urine Bacteria (None Seen) /HPF Urine Culture Reflexed (NO) - Progress Progress: improved, re-examined Air Movement: fair Progress Note: 03/15/24 18:39 68-year-old with COPD/CHF is evaluated in the ER for increasing shortness of breath and cough. Patient has been hypoxic, currently on 3 L oxygen with saturation in mid 90s. Given DuoNeb x 2, 1 and route to ER and 1 in here. Feeling better on reevaluation, also given Lasix. EKG is normal sinus rhythm with no acute ischemic changes, negative initial troponins, normal white count, chemistries showed lactate of 2.6, procalcitonin 0.1 and acute on chronic renal failure with a baseline creatinine of 1.2 and today is 1.9. Patient has a BNP of 34 K with a baseline around 3400s. Patient is given Lasix. Chest x-ray showed bilateral airspace disease and some congestion suggesting a combination of CHF and pneumonia/COPD. Patient is given a dose of antibiotic as well. Chest x-ray reviewed by me, official report is pending. Discussed with Dr. Pro, reviewed history, workup and agreed with admission. I have shared the results of workup with patient and family who understand and agree with staying in the hospital. Taking into account patient's history, complicated concurrent medical history, exam, order and review/analysis of workup followed by intervention management and reevaluation is 1 of higher level of complexity. Blood Culture(s) Obtained: Yes Antibiotics given: Yes Discussed with .: Godwin Will see patient in: hospital (observation) Counseled pt/family regarding: lab results, diagnosis, need for follow-up, rad results Medical Desision Making - Independent Historian Additional History obtained from: Child, Insert Operator/EMT - Discussion of managment Care discussed with:: hospitalist Reviewed:: Test results Agreed on:: Treatment plan Will see patient: in hospital - Diagnostic Testing Diagnostic test were ordered, analyzed, and reviewed by me: Yes Radiological Interpretation: Interpreted by me, Reviewed by me - Risk of complications The pt has a mod risk of morbidity or mortality based on: Need for prescription drug management The pt has a high risk of morbidity or mortality based on: Decision regarding hospitilization or escalation of hosp level of care - Departure Departure Disposition: Observation Clinical Impression: Acute exacerbation of CHF (congestive heart failure), Pneumonia, Acute on chronic renal failure, Respiratory failure Condition: Stable Critical Care Time: No Referrals: NICCI CLAROS MD [Primary Care Provider] - Follow up/PCP as directed Instructions: Heart Failure
[2024-03-15] MEDS ORDERED: DUONEB 0.5-3 MG/3 ml Neb IH ONE (16:42)
[2024-03-15] MEDS: DUONEB 0.5-3 MG/3 ml Neb IH ONE (16:46)
[2024-03-15 16:58] LABS: A-aADO2 84; ABG HEMOGLOBIN 9.5; ABG POTASSIUM 4.7 (3.5-5.1); ARTERIAL BLD GAS O2 SATURATION 98.4 % (95-100); ARTERIAL BLOOD GAS BASE EXCESS -2.2 (-2.0-2.0); ARTERIAL BLOOD GAS FIO2 32 %; ARTERIAL BLOOD GAS PCO2 36 mmHg (35-45); ARTERIAL BLOOD GAS PO2 99 mmHg (75-100); CARBOXYHEMOGLOBIN 3.1 % THgb (0.0-6.9); HCO3- 22.3 (22-28); HGB O2 SAT 94.8 g/dF (94-100); Lactic Acid 2.6 (0.4-2.0); Methhemoglobin 0.6 % (1.4-1.5); paO2 pAO1 0.54
[2024-03-15 16:59] LABS: ABG SITE LEFT RADIAL; ALLEN TEST OK? YES
[2024-03-15 17:16] LABS: Absolute Neutrophil Ct (ANC) 4.48 x10^3/uL (1.4-6.9); BASOPHIL % 0.2 % (0.0-0.4); Basophil (Absolute #) 0.01 x10^3/uL (0-0.4); Eosinophil % 1.7 % (0.00-5.0); Hematocrit 30.7 % (42-50); Hemoglobin 9.2 g/dL (12.5-18.0); IMMATURE GRAN # 0.02 x10^3u/L (0.00-0.03); IMMATURE GRAN % 0.3 % (0.00-0.4); Lymphocyte (Absolute #) 0.88 x10^3/uL (1.0-4.6); Lymphocytes % 14.9 % (24.0-44.0); Mean Cell Volume 93.6 fL (78-100); Mean Platelet Volume 11.1 fL (7.5-11.0); Monocyte (Absolute #) 0.42 x10^3/uL (0.0-1.3); Monocytes % 7.1 % (0.0-12.0); Neutrophil % 75.8 % (36.0-66.0); Platelet Count 224 x10^3/uL (150-450); Red Blood Count 3.28 x10^6/uL (4.1-5.6); Red Cell Distribution Width 15.9 % (11.5-14.0); White Blood Count 5.9 x10^3/uL (4.0-10.5)
[2024-03-15 17:42] LABS: ALBUMIN 2.9 g/dL (3.5-5.0); ANION GAP 12.5 MEQ/L (5-15); BILIRUBIN,TOTAL 0.4 mg/dL (0.2-1.3); Calcium 8.3 mg/dL (8.4-10.2); Creatinine 1 1.94 mg/dL (0.66-1.25); EST GLOMERULAR FILTRATION RATE 37.2 ML/MIN; MAGNESIUM 1.6 mg/dL (1.6-2.3); Potassium 4.6 mmol/L (3.5-5.1); Total Protein 5.7 g/dL (6.3-8.2)
[2024-03-15 17:53] LABS: Appearance Clear (Clear); Bacteria None Seen /HPF (None Seen); Bilirubin Negative (Negative); Blood Small (Negative); Epithelial Cells None Seen /HPF (None Seen); Glucose, Urine Negative (Negative); Ketones Negative (Negative); Leukocyte Esterase Negative (Negative); Nitrite Negative (Negative); Ph 5.5 (4.6-8.0); Protein,Urine Dip >=1000 (Negative); RBC 0-2 /HPF (0-5); WBC 0-2 /HPF (0-5)
[2024-03-15 17:54] LABS: ADD URINE CULTURE? ORDERED SEPARATELY (NO)
[2024-03-15] MEDS ORDERED: ROCEPHIN 2 GM/100 ML NACL 2 GM/100 ML IVPB IV ONE (18:07)
[2024-03-15] MEDS: ROCEPHIN 2 GM/100 ML NACL 2 GM/100 ML IVPB IV ONE (18:09)
[2024-03-15] MEDS ORDERED: Zithromax 500 MG/ 250 ML NaCl Premix 500 MG/250 ML IVPB IV ONE (18:26)
[2024-03-15] MEDS: Zithromax 500 MG/ 250 ML NaCl Premix 500 MG/250 ML IVPB IV STA (18:29)
[2024-03-15] MEDS ORDERED: MORPHINE SULFATE 2 MG INJ ONE (19:31)
[2024-03-15] MEDS ORDERED: Zofran 4 MG/2 ML VIAL ONE (19:31)
[2024-03-15] MEDS ORDERED: Lasix 40 MG/4 ML ONE (19:31)
[2024-03-15] MEDS: Lasix 40 MG/4 ML IV ONE (19:32)
[2024-03-15] MEDS: Zofran 4 MG/2 ML VIAL IV ONE (19:32)
[2024-03-15] MEDS: MORPHINE SULFATE 2 MG INJ IV ONE (19:32)
--- NOTE | 2024-03-15 22:30 | XRAY ---
Indication: Short of breath. Comparison: December 18, 2022 Portable apical lordotic chest less inflated with new diffuse right lung hazy interstitial alveolar opacities. Cardiomegaly obscures left lung base. No consolidation/large effusion. Bony thorax intact again with osteopenia and degenerative changes.
[2024-03-15] MEDS ORDERED: DUONEB 0.5-3 MG/3 ml Neb IH PRN (22:36)
[2024-03-15] MEDS ORDERED: Zofran 4 MG/2 ML VIAL IV PRN (22:37)
[2024-03-15] MEDS ORDERED: TYLENOL 325 MG PO PRN (22:37)
[2024-03-15] MEDS ORDERED: ROCEPHIN 1 GM / 100 ML NaCl 1 GM/100 ML IVPB IV SCH (22:45)
--- NOTE | 2024-03-15 22:45 | PCM.HP ---
History of Present Illness - Chief Complaint Chief Complaint: Acute CHF exacerbation, pneumonia, respiratory failure, acute on chronic re Date: 03/15/24 History of Present Illness: is a 68 year old male with a history of COPD (not recently on home oxygen), congestive heart failure, CAD (s/p CABG x 2, and follows with Dr. Taylor), hypertension, DM, and hyperlipidemia who presented in the ER with 2 to 3 days history of progressively worsening shortness of breath. Patient reports minimal productive cough, but no report of hemoptysis. Reports shortness of breath getting worse with activity and partially relieved with resting. He has chronic bilateral leg edema which is worse than baseline, but he denies orthopnea. Earlier prior to arrival he was having some left-sided chest discomfort/pain mild to moderate which improved and route to the ER. Patient oxygen saturation was in low 90s, given DuoNeb, placed on 3 L oxygen and currently 94%. Patient reports he does have oxygen at home but does not use it. No fever or chills reported. - Review of Systems Constitutional: No Symptoms Eyes: No Symptoms Ears, Nose, & Throat: No Symptoms Respiratory: Cough, Short Of Breath Cardiac: Chest Pain, Edema Abdominal/Gastrointestinal: No Symptoms Genitourinary Symptoms: No Symptoms Musculoskeletal: No Symptoms Skin: No Symptoms Neurological: No Symptoms Psychological: No Symptoms Endocrine: No Symptoms Hematologic/Lymphatic: No Symptoms Immunological/Allergic: No Symptoms All Other Systems: Reviewed and Negative Medications & Allergies Home Medications: Home Medication List Losartan Potassium 50 mg [Cozaar 50 MG] 50 mg PO DAILY 05/26/19 [History Confirmed 03/15/24] Ezetimibe 10 mg PO DAILY 04/26/20 [History Confirmed 03/15/24] Clopidogrel Bisulfate [PLAVIX Tablet] 75 mg PO DAILY 02/10/21 [History Confirmed 03/15/24] Allopurinol 100 mg [Zyloprim 100 mg] 200 mg PO DAILY 06/06/21 [History Confirmed 03/15/24] Aspirin EC 81 mg [Ecotrin 81 mg] 81 mg PO DAILY 10/23/22 [History Confirmed 03/15/24] Metformin HCl [Metformin HCl ER] 1,000 mg PO BID 11/05/22 [History Confirmed 03/15/24] Isosorbide Mononitrate 30 mg PO DAILY #52 tablet 11/19/22 [Rx Confirmed 03/15/24] Atorvastatin Calcium 1 tab PO DAILY 03/15/24 [History Confirmed 03/15/24] PANTOPRAZOLE 40 mg Tablet [Protonix 40MG Tablet] 1 tab PO BID 03/15/24 [History Confirmed 03/15/24] Allergies/Adverse Reactions: Allergies Allergy/AdvReac Type Severity Reaction Status Date / Time gabapentin AdvReac Verified 03/15/24 22:01 - Past Medical History Past Medical History: Yes Neurological History: No Pertinent History ENT History: No Pertinent History Cardiac History: Angina, Congestive Heart Failure, Coronary Artery Disease, High Cholesterol, Hypertension, Myocardial Infarction (ID) Respiratory History: COPD Endocrine Medical History: Diabetes Type II Musculoskelatal History: Osteoarthritis GI Medical History: No Pertinent History History: No Pertinent History Pyscho-Social History: No Pertinent History Male Reproductive Disorders: No Pertinent History Comment: fractured ribs, anemia, gout - Past Surgical History Past Surgical History: Yes Neuro Surgical History: No Pertinent History Cardiac History: CABG, Cardiac Catheterization, Cardiac Stent, Other Respiratory Surgery: Chest Surgery GI Surgical History: No Pertinent History Genitourinary Surgical Hx: No Pertinent History Musculskeletal Surgical Hx: Orthopedic Surgery Male Surgical History: No Pertinent History Other Surgical History: umbilical, triple bypass, L shoulder - Social History Smoking Status: Former smoker How long have you smoked: 53 Exposure to second hand smoke: No Alcohol: None Drug Use: marijuana - Social Determinants of Health Will the patient participate in the screening: Yes Do you worry about a steady place to live?: Yes Do you have any problems with any of the following?: No known problems In the past 12 months,have you had to go without utilities?: No Have you or anyone in your house had to go without enough: Yes Transportation Issues: Yes Has anyone in your support network made you feel unsafe?: No Does the patient want assistance with any of the above?: No - Physical Exam Vital Signs: Vital Signs - 24 hr Temp Pulse Resp BP BP Pulse Ox 03/15/24 21:40 96.7 F 89 24 165/85 93 L 03/15/24 20:00 89 26 H 136/76 93 L 03/15/24 19:30 89 28 H 130/73 95 03/15/24 19:01 96 H 34 H 139/85 96 03/15/24 18:54 89 L 03/15/24 18:30 92 H 37 H 160/88 97 03/15/24 18:00 85 23 162/88 96 03/15/24 17:50 92 H 22 93 L 03/15/24 17:40 87 28 H 93 L 03/15/24 17:30 89 26 H 74 L 03/15/24 17:20 92 H 35 H 03/15/24 17:10 88 33 H 94 L 03/15/24 17:02 85 32 H 98 03/15/24 16:31 88 30 H 162/86 95 03/15/24 16:13 97.6 F 89 25 H 173/103 89 L General Appearance: no apparent distress, alert Neurologic Exam: alert, oriented x 3, cooperative, rectification printer II-XII nml as tested, normal mood/affect, nml cerebellar function Eye Exam: PERRL/EOMI, eyes nml inspection Ears, Nose, Throat Exam: normal ENT inspection Neck Exam: normal inspection, non-tender, supple, full range of motion Respiratory Exam: diminished breath sounds, rhonchi Cardiovascular Exam: regular rate/rhythm, normal heart sounds, edema (Bilateral 3+ symmetrical leg edema) Gastrointestinal/Abdomen Exam: soft, normal bowel sounds Back Exam: normal range of motion Extremity Exam: normal range of motion, swelling Skin Exam: normal color Results - Labs Lab/Micro Results: Lab Results-Last 24 Hours 03/15/24 03/15/24 03/15/24 Range/Units 16:50 16:50 16:50 WBC 5.9 (4.0-10.5) x10^3/uL RBC 3.28 L (4.1-5.6) x10^6/uL Hgb 9.2 L (12.5-18.0) g/dL Hct 30.7 L (42-50) % MCV 93.6 (78-100) fL MCH 28.0 (26-32) pg MCHC 30.0 L (32-36) g/dL RDW 15.9 H (11.5-14.0) % Plt Count 224 (150-450) x10^3/uL MPV 11.1 H (7.5-11.0) fL Gran % 75.8 H (36.0-66.0) % Immature Gran % (Auto) 0.3 (0.00-0.4) % Nucleat RBC Rel Count 0.0 (0.00-0.1) % Eos # (Auto) 0.10 (0-0.5) x10^3/uL Immature Gran # (Auto) 0.02 (0.00-0.03) x10^3u/L Absolute Lymphs (auto) 0.88 L (1.0-4.6) x10^3/uL Absolute Monos (auto) 0.42 (0.0-1.3) x10^3/uL Absolute Nucleated RBC 0.00 (0.00-0.01) x10^3u/L Lymphocytes % 14.9 L (24.0-44.0) % Monocytes % 7.1 (0.0-12.0) % Eosinophils % 1.7 (0.00-5.0) % Basophils % 0.2 (0.0-0.4) % Absolute Granulocytes 4.48 (1.4-6.9) x10^3/uL Basophils # 0.01 (0-0.4) x10^3/uL Puncture Site pCO2 (35-45) mmHg pO2 (75-100) mmHg Base Excess (-2.0-2.0) O2 Saturation (94-100) g/dF ABG pH (7.35-7.45) ABG HCO3 (22-28) ABG O2 Sat (Measured) (95-100) % Jeffrey Test A-a Gradient a/A Ratio Hemoglobin Carboxyhemoglobin (0.0-6.9) % THgb Methemoglobin (1.4-1.5) % Temperature C POC O2 Flow Rate % Sodium 145 (135-145) mmol/L Potassium 4.6 (3.5-5.1) mmol/L Chloride 115 H (98-107) mmol/L Carbon Dioxide 21 L (22-30) mmol/L Anion Gap 12.5 (5-15) MEQ/L BUN 37 H (9-20) mg/dL Creatinine 1.94 H (0.66-1.25) mg/dL Estimated GFR 37.2 ML/MIN Glucose 92 (74-106) mg/dL POC Glucometer (74 to 106) mg/dL Lactic Acid (0.4-2.0) Calcium 8.3 L (8.4-10.2) mg/dL Magnesium 1.6 (1.6-2.3) mg/dL Total Bilirubin 0.40 (0.2-1.3) mg/dL AST 29 (17-59) U/L ALT 31 (0-50) U/L Alkaline Phosphatase 173 H (38-126) U/L Troponin I 0.024 (0.000-0.033) ng/mL NT-Pro-B Natriuret Pep 86137 (<300) pg/mL Serum Total Protein 5.7 L (6.3-8.2) g/dL Albumin 2.9 L (3.5-5.0) g/dL Procalcitonin (0.030-0.080) ng/mL Urine Color (Yellow) Urine Appearance (Clear) Urine pH (4.6-8.0) Ur Specific [place] (1.005-1.030) Urine Protein (Negative) Urine Glucose (UA) (Negative) mg/dL Urine Ketones (Negative) Urine Blood (Negative) Urine Nitrite (Negative) Urine Bilirubin (Negative) Urine Urobilinogen (0.2) mg/dL Ur Leukocyte Esterase (Negative) U Hyaline Cast (Auto) (0-2) /LPF Urine Microscopic RBC (0-5) /HPF Urine Microscopic WBC (0-5) /HPF Ur Epithelial Cells (None Seen) /HPF Urine Bacteria (None Seen) /HPF Urine Culture Reflexed (NO) 03/15/24 03/15/24 03/15/24 Range/Units 16:50 16:55 17:35 WBC (4.0-10.5) x10^3/uL RBC (4.1-5.6) x10^6/uL Hgb (12.5-18.0) g/dL Hct (42-50) % MCV (78-100) fL MCH (26-32) pg MCHC (32-36) g/dL RDW (11.5-14.0) % Plt Count (150-450) x10^3/uL MPV (7.5-11.0) fL Gran % (36.0-66.0) % Immature Gran % (Auto) (0.00-0.4) % Nucleat RBC Rel Count (0.00-0.1) % Eos # (Auto) (0-0.5) x10^3/uL Immature Gran # (Auto) (0.00-0.03) x10^3u/L Absolute Lymphs (auto) (1.0-4.6) x10^3/uL Absolute Monos (auto) (0.0-1.3) x10^3/uL Absolute Nucleated RBC (0.00-0.01) x10^3u/L Lymphocytes % (24.0-44.0) % Monocytes % (0.0-12.0) % Eosinophils % (0.00-5.0) % Basophils % (0.0-0.4) % Absolute Granulocytes (1.4-6.9) x10^3/uL Basophils # (0-0.4) x10^3/uL Puncture Site LEFT RADIAL pCO2 36 (35-45) mmHg pO2 99 (75-100) mmHg Base Excess -2.2 L (-2.0-2.0) O2 Saturation 94.8 (94-100) g/dF ABG pH 7.40 (7.35-7.45) ABG HCO3 22.3 (22-28) ABG O2 Sat (Measured) 98.4 (95-100) % Jeffrey Test YES A-a Gradient 84 a/A Ratio 0.54 Hemoglobin 9.5 Carboxyhemoglobin 3.1 (0.0-6.9) % THgb Methemoglobin 0.6 L (1.4-1.5) % Temperature 37.0 C POC O2 Flow Rate 32 % Sodium (135-145) mmol/L Potassium 4.7 (3.5-5.1) mmol/L Chloride (98-107) mmol/L Carbon Dioxide (22-30) mmol/L Anion Gap (5-15) MEQ/L BUN (9-20) mg/dL Creatinine (0.66-1.25) mg/dL Estimated GFR ML/MIN Glucose (74-106) mg/dL POC Glucometer (74 to 106) mg/dL Lactic Acid 2.6 H (0.4-2.0) Calcium (8.4-10.2) mg/dL Magnesium (1.6-2.3) mg/dL Total Bilirubin (0.2-1.3) mg/dL AST (17-59) U/L ALT (0-50) U/L Alkaline Phosphatase (38-126) U/L Troponin I (0.000-0.033) ng/mL NT-Pro-B Natriuret Pep (<300) pg/mL Serum Total Protein (6.3-8.2) g/dL Albumin (3.5-5.0) g/dL Procalcitonin 0.108 H (0.030-0.080) ng/mL Urine Color Yellow (Yellow) Urine Appearance Clear (Clear) Urine pH 5.5 (4.6-8.0) Ur Specific [place] 1.020 (1.005-1.030) Urine Protein >=1000 A (Negative) Urine Glucose (UA) Negative (Negative) mg/dL Urine Ketones Negative (Negative) Urine Blood Small A (Negative) Urine Nitrite Negative (Negative) Urine Bilirubin Negative (Negative) Urine Urobilinogen 1.0 A (0.2) mg/dL Ur Leukocyte Esterase Negative (Negative) U Hyaline Cast (Auto) 3-5 A (0-2) /LPF Urine Microscopic RBC 0-2 (0-5) /HPF Urine Microscopic WBC 0-2 (0-5) /HPF Ur Epithelial Cells None Seen (None Seen) /HPF Urine Bacteria None Seen (None Seen) /HPF Urine Culture Reflexed ORDERED SEPARATELY (NO) 03/15/24 03/15/24 03/15/24 Range/Units 18:59 19:48 22:29 WBC (4.0-10.5) x10^3/uL RBC (4.1-5.6) x10^6/uL Hgb (12.5-18.0) g/dL Hct (42-50) % MCV (78-100) fL MCH (26-32) pg MCHC (32-36) g/dL RDW (11.5-14.0) % Plt Count (150-450) x10^3/uL MPV (7.5-11.0) fL Gran % (36.0-66.0) % Immature Gran % (Auto) (0.00-0.4) % Nucleat RBC Rel Count (0.00-0.1) % Eos # (Auto) (0-0.5) x10^3/uL Immature Gran # (Auto) (0.00-0.03) x10^3u/L Absolute Lymphs (auto) (1.0-4.6) x10^3/uL Absolute Monos (auto) (0.0-1.3) x10^3/uL Absolute Nucleated RBC (0.00-0.01) x10^3u/L Lymphocytes % (24.0-44.0) % Monocytes % (0.0-12.0) % Eosinophils % (0.00-5.0) % Basophils % (0.0-0.4) % Absolute Granulocytes (1.4-6.9) x10^3/uL Basophils # (0-0.4) x10^3/uL Puncture Site pCO2 (35-45) mmHg pO2 (75-100) mmHg Base Excess (-2.0-2.0) O2 Saturation (94-100) g/dF ABG pH (7.35-7.45) ABG HCO3 (22-28) ABG O2 Sat (Measured) (95-100) % Jeffrey Test A-a Gradient a/A Ratio Hemoglobin Carboxyhemoglobin (0.0-6.9) % THgb Methemoglobin (1.4-1.5) % Temperature C POC O2 Flow Rate % Sodium (135-145) mmol/L Potassium (3.5-5.1) mmol/L Chloride (98-107) mmol/L Carbon Dioxide (22-30) mmol/L Anion Gap (5-15) MEQ/L BUN (9-20) mg/dL Creatinine (0.66-1.25) mg/dL Estimated GFR ML/MIN Glucose (74-106) mg/dL POC Glucometer 121 H (74 to 106) mg/dL Lactic Acid 3.6 H (0.4-2.0) Calcium (8.4-10.2) mg/dL Magnesium (1.6-2.3) mg/dL Total Bilirubin (0.2-1.3) mg/dL AST (17-59) U/L ALT (0-50) U/L Alkaline Phosphatase (38-126) U/L Troponin I 0.025 (0.000-0.033) ng/mL NT-Pro-B Natriuret Pep (<300) pg/mL Serum Total Protein (6.3-8.2) g/dL Albumin (3.5-5.0) g/dL Procalcitonin (0.030-0.080) ng/mL Urine Color (Yellow) Urine Appearance (Clear) Urine pH (4.6-8.0) Ur Specific [place] (1.005-1.030) Urine Protein (Negative) Urine Glucose (UA) (Negative) mg/dL Urine Ketones (Negative) Urine Blood (Negative) Urine Nitrite (Negative) Urine Bilirubin (Negative) Urine Urobilinogen (0.2) mg/dL Ur Leukocyte Esterase (Negative) U Hyaline Cast (Auto) (0-2) /LPF Urine Microscopic RBC (0-5) /HPF Urine Microscopic WBC (0-5) /HPF Ur Epithelial Cells (None Seen) /HPF Urine Bacteria (None Seen) /HPF Urine Culture Reflexed (NO) - Radiology Impressions Radiology Exams & Impressions: Radiology Procedures Category Date Time Status CHEST 1 VIEW (PORTABLE) Stat Exams 03/15/24 16:29 Completed ECHO W/2D AND DOPPLER [US] Routine Exams 03/15/24 22:38 Ordered - Other Procedures and Tests Respiratory Therapy 03/15/24 21:30 Oxygen Nasal Cannula 3 lpm Respiratory Therapy Consult ONCE 03/15/24 22:00 RT Screen per Nursing Assess ONCE Assessment/Plan (1) COPD (chronic obstructive pulmonary disease) Current Visit: No Status: Chronic Assessment & Plan: COPD exacerbation with acute respiratory failure and hypoxia noted. Steroids, nebs, O2 wean as tolerated. PT eval. Patient is DNR. (2) Chest pain Current Visit: No Status: Acute Assessment & Plan: Troponin negative. No acute changes on EKG. Repeat EKG in AM. Monitor on tele. On antiplatelet therapy. Follows with Dr. Taylor. Code(s): R07.9 - CHEST PAIN, UNSPECIFIED (3) Acute exacerbation of CHF (congestive heart failure) Current Visit: Yes Status: Acute Assessment & Plan: IV Lasix. Monitor urine output, renal function, weight leg edema, and trend BNP. Code(s): I50.9 - HEART FAILURE, UNSPECIFIED (4) Acute on chronic renal failure Current Visit: Yes Status: Acute Assessment & Plan: Hold losartan and metformin, and reduce allopurinol dose. Monitor renal function with diuresis. Code(s): N17.9 - ACUTE KIDNEY FAILURE, UNSPECIFIED; N18.9 - CHRONIC KIDNEY DISEASE, UNSPECIFIED (5) Respiratory failure Current Visit: Yes Status: Acute Assessment & Plan: Wean oxygen as tolerated. Code(s): J96.90 - RESPIRATORY FAILURE, UNSP, UNSP W HYPOXIA OR HYPERCAPNIA (6) Pneumonitis Current Visit: No Status: Acute Onset Date: ~10/06/18 Assessment & Plan: IV antibiotics. Lactic acid noted to trend up. Will repeat. Patient is hemodynamically stable. Code(s): J18.9 - PNEUMONIA, UNSPECIFIED ORGANISM (7) DM w/o complication type II Current Visit: No Status: Acute Assessment & Plan: Hold metformin. Monitor sugars on ISS. Code(s): E11.9 - TYPE 2 DIABETES MELLITUS WITHOUT COMPLICATIONS Telemedicine Encounter - Telemedicine Encounter Telemedicine Encounter: The entirety of this visit was performed using real-time audio and video connection between my location and the patients location with the assistance of a surrogate at the patients location. Written or verbal consent was obtained from the patient/guardian to perform this visit using synchronous telemedicine technology. Any patient questions regarding the telemedicine interaction were answered.
[2024-03-16] MEDS: Lasix 40 MG/4 ML IV SCH ×3 (00:19→14:32)
[2024-03-16 04:54] LABS: Absolute Neutrophil Ct (ANC) 5.64 x10^3/uL (1.4-6.9); BASOPHIL % 0.1 % (0.0-0.4); Basophil (Absolute #) 0.01 x10^3/uL (0-0.4); Eosinophil % 1.2 % (0.00-5.0); Eosinophil (Absolute #) 0.08 x10^3/uL (0-0.5); Hematocrit 30.9 % (42-50); Hemoglobin 9.1 g/dL (12.5-18.0); IMMATURE GRAN # 0.01 x10^3u/L (0.00-0.03); IMMATURE GRAN % 0.1 % (0.00-0.4); Lymphocyte (Absolute #) 0.68 x10^3/uL (1.0-4.6); Mean Cell Volume 94.2 fL (78-100); Mean Corpuscular Hemoglobin 27.7 pg (26-32); Mean Corpuscular Hgb Concent. 29.4 g/dL (32-36); Mean Platelet Volume 11.3 fL (7.5-11.0); Monocytes % 5.9 % (0.0-12.0); Neutrophil % 82.7 % (36.0-66.0); Platelet Count 194 x10^3/uL (150-450); Red Blood Count 3.28 x10^6/uL (4.1-5.6); Red Cell Distribution Width 15.9 % (11.5-14.0); White Blood Count 6.8 x10^3/uL (4.0-10.5)
[2024-03-16 05:36] LABS: ALBUMIN 2.8 g/dL (3.5-5.0); ANION GAP 11.7 MEQ/L (5-15); BILIRUBIN,TOTAL 0.4 mg/dL (0.2-1.3); Calcium 8.3 mg/dL (8.4-10.2); Creatinine 1 1.8 mg/dL (0.66-1.25); EST GLOMERULAR FILTRATION RATE 40.8 ML/MIN; Total Protein 5.5 g/dL (6.3-8.2)
[2024-03-16 05:42] LABS: ANION GAP 10.6 MEQ/L (5-15); Calcium 8.1 mg/dL (8.4-10.2); Creatinine 1 1.91 mg/dL (0.66-1.25); Potassium 4.9 mmol/L (3.5-5.1)
[2024-03-16] MEDS: solu-MEDROL 40 MG, Sterile H2O 10 ml 1 ML IV SCH (06:15)
[2024-03-16] MEDS ORDERED: solu-MEDROL ONE (06:19)
[2024-03-16] MEDS ORDERED: Sterile H2O 10 ml IJ ONE (06:19)
--- NOTE | 2024-03-16 09:28 | PCM.NOTE ---
Date and Time: 03/16/24917 Subjective Assessment: 03/16/24 is a 68 year old male with a history of COPD (not recently on home oxygen), congestive heart failure, CAD (s/p CABG x 2, and follows with Dr. Taylor), hypertension, DM, and hyperlipidemia. He presented in the ER on 03/15/24 with a 2 to 3 days history of progressively worsening shortness of breath. Patient reports minimal productive cough, but no report of hemoptysis. Reports shortness of breath getting worse with activity and partially relieved with resting. He has chronic bilateral leg edema which is worse than baseline, but he denies orthopnea. Prior to arrival he was having some left-sided chest discomfort/pain mild to moderate which improved and route to the ER. Troponins were negative. Patient oxygen saturation was in low 90s on admission, given DuoNeb, placed on 3 L oxygen and improved to 94%. Patient reports he does have oxygen at home but does not use it. No fever or chills reported. 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 Will order if pt is willing. Today he is scheduled to have an Echo. He is currently on 5L oxymask. Lasix for CHF exacerbation.+ 3 pitting edema of BLLE. Antibiotics and steroids for pneumonia continued.He denies Cp today, abd. pain, N/V/D. He feels SOB has improved. - Review of Systems Constitutional: No Fever, No Chills Eyes: No Symptoms Ears, Nose, & Throat: No Symptoms Respiratory: Short Of Breath, No Cough Cardiac: Edema (BLLE), No Chest Pain, No Syncope Abdominal/Gastrointestinal: No Abdominal Pain, No Nausea, No Vomiting, No Diarrhea Genitourinary Symptoms: No Dysuria Musculoskeletal: No Back Pain, No Neck Pain Skin: No Rash Neurological: No Dizziness, No Focal Weakness, No Sensory Changes Psychological: No Symptoms Endocrine: No Symptoms Hematologic/Lymphatic: No Symptoms Immunological/Allergic: No Symptoms Objective Exam General Appearance: no apparent distress, alert, obese Neurologic Exam: alert, oriented x 3, cooperative, normal mood/affect, nml cerebellar function, sensation nml, No motor deficits Skin Exam: normal color, warm, dry Wound Assessment: Skin/Wound Assessment Wound/Incision Assessment Start: 03/15/24 22:00 Text: Status: Active Freq: Q6H Protocol: Document 03/16/24 04:00 AR (Rec: 03/16/24 04:14 AR [id number]) Wound/Incision Assessment Bilat feet Wound Assessment Shift Assessment Comment Feet are red, edematous, and flaking. 4th and 5th digit on right foot are amputated. BLE Wound Assessment Shift Assessment Comment bilat legs are shiny, red, edematous, and flaking. Patient denies any pain to legs. Wound Photo Photo Taken Yes Date: 03/15/24 Time: 23:00 Eye Exam: PERRL, EOMI, eyes nml inspection Ears, Nose, Throat Exam: normal ENT inspection, pharynx normal, moist mucous membranes Neck Exam: normal inspection, non-tender, supple, full range of motion Respiratory Exam: normal breath sounds, lungs clear, diminished breath sounds (BLLL), No respiratory distress Cardiovascular Exam: regular rate/rhythm, normal heart sounds, edema (+3 pitting edema BLLE) Gastrointestinal/Abdomen Exam: soft, No tenderness, No mass Extremity Exam: normal inspection, normal range of motion Back Exam: normal inspection, normal range of motion, No CVA tenderness, No v ertebral tenderness Male Genitalia Exam: deferred Rectal Exam: deferred Objective Data Vital Signs: Vital Signs - 24 hr Temp Pulse Resp BP BP Pulse Ox 03/16/24 07:22 97.1 F 75 18 153/85 95 03/16/24 04:00 97.7 F 81 26 H 139/81 95 03/15/24 23:33 81 18 96 03/15/24 23:20 97.7 F 85 24 151/85 93 L 03/15/24 21:40 96.7 F 89 24 165/85 93 L 03/15/24 20:00 89 26 H 136/76 93 L 03/15/24 19:30 89 28 H 130/73 95 03/15/24 19:01 96 H 34 H 139/85 96 03/15/24 18:54 89 L 03/15/24 18:30 92 H 37 H 160/88 97 03/15/24 18:00 85 23 162/88 96 03/15/24 17:50 92 H 22 93 L 03/15/24 17:40 87 28 H 93 L 06/05/24 17:30 89 26 H 74 L 06/05/24 17:20 92 H 35 H 03/15/24 17:10 88 33 H 94 L 03/15/24 17:02 85 32 H 98 03/15/24 16:31 88 30 H 162/86 95 03/15/24 16:13 97.6 F 89 25 H 173/103 89 L Pain Assessment - Last Documented Pain Intensity 0 Intake and Output: Intake & Output 03/13/24 03/14/24 03/15/24 03/16/24 11:59 11:59 11:59 11:59 Intake Total 2620 Output Total 1600 Balance 1020 Weight 115.2 kg Lab Results: Lab Results-Last 24 Hours 03/15/24 03/15/24 03/15/24 Range/Units 16:50 16:50 16:50 WBC 5.9 (4.0-10.5) x10^3/uL RBC 3.28 L (4.1-5.6) x10^6/uL Hgb 9.2 L (12.5-18.0) g/dL Hct 30.7 L (42-50) % MCV 93.6 (78-100) fL MCH 28.0 (26-32) pg MCHC 30.0 L (32-36) g/dL RDW 15.9 H (11.5-14.0) % Plt Count 224 (150-450) x10^3/uL MPV 11.1 H (7.5-11.0) fL Gran % 75.8 H (36.0-66.0) % Immature Gran % (Auto) 0.3 (0.00-0.4) % Nucleat RBC Rel Count 0.0 (0.00-0.1) % Eos # (Auto) 0.10 (0-0.5) x10^3/uL Immature Gran # (Auto) 0.02 (0.00-0.03) x10^3u/L Absolute Lymphs (auto) 0.88 L (1.0-4.6) x10^3/uL Absolute Monos (auto) 0.42 (0.0-1.3) x10^3/uL Absolute Nucleated RBC 0.00 (0.00-0.01) x10^3u/L Lymphocytes % 14.9 L (24.0-44.0) % Monocytes % 7.1 (0.0-12.0) % Eosinophils % 1.7 (0.00-5.0) % Basophils % 0.2 (0.0-0.4) % Absolute Granulocytes 4.48 (1.4-6.9) x10^3/uL Basophils # 0.01 (0-0.4) x10^3/uL Puncture Site pCO2 (35-45) mmHg pO2 (75-100) mmHg Base Excess (-2.0-2.0) O2 Saturation (94-100) g/dF ABG pH (7.35-7.45) ABG HCO3 (22-28) ABG O2 Sat (Measured) (95-100) % Jeffrey Test A-a Gradient a/A Ratio Hemoglobin Carboxyhemoglobin (0.0-6.9) % THgb Methemoglobin (1.4-1.5) % Temperature C POC O2 Flow Rate % Sodium 145 (135-145) mmol/L Potassium 4.6 (3.5-5.1) mmol/L Chloride 115 H (98-107) mmol/L Carbon Dioxide 21 L (22-30) mmol/L Anion Gap 12.5 (5-15) MEQ/L BUN 37 H (9-20) mg/dL Creatinine 1.94 H (0.66-1.25) mg/dL Estimated GFR 37.2 ML/MIN Glucose 92 (74-106) mg/dL POC Glucometer (74 to 106) mg/dL Lactic Acid (0.4-2.0) Calcium 8.3 L (8.4-10.2) mg/dL Magnesium 1.6 (1.6-2.3) mg/dL Total Bilirubin 0.40 (0.2-1.3) mg/dL AST 29 (17-59) U/L ALT 31 (0-50) U/L Alkaline Phosphatase 173 H (38-126) U/L Troponin I 0.024 (0.000-0.033) ng/mL NT-Pro-B Natriuret Pep 87807 (<300) pg/mL Serum Total Protein 5.7 L (6.3-8.2) g/dL Albumin 2.9 L (3.5-5.0) g/dL Procalcitonin (0.030-0.080) ng/mL Urine Color (Yellow) Urine Appearance (Clear) Urine pH (4.6-8.0) Ur Specific Mongo (1.005-1.030) Urine Protein (Negative) Urine Glucose (UA) (Negative) mg/dL Urine Ketones (Negative) Urine Blood (Negative) Urine Nitrite (Negative) Urine Bilirubin (Negative) Urine Urobilinogen (0.2) mg/dL Ur Leukocyte Esterase (Negative) U Hyaline Cast (Auto) (0-2) /LPF Urine Microscopic RBC (0-5) /HPF Urine Microscopic WBC (0-5) /HPF Ur Epithelial Cells (None Seen) /HPF Urine Bacteria (None Seen) /HPF Urine Culture Reflexed (NO) 03/15/24 03/15/24 03/15/24 Range/Units 16:50 16:55 17:35 WBC (4.0-10.5) x10^3/uL RBC (4.1-5.6) x10^6/uL Hgb (12.5-18.0) g/dL Hct (42-50) % MCV (78-100) fL MCH (26-32) pg MCHC (32-36) g/dL RDW (11.5-14.0) % Plt Count (150-450) x10^3/uL MPV (7.5-11.0) fL Gran % (36.0-66.0) % Immature Gran % (Auto) (0.00-0.4) % Nucleat RBC Rel Count (0.00-0.1) % Eos # (Auto) (0-0.5) x10^3/uL Immature Gran # (Auto) (0.00-0.03) x10^3u/L Absolute Lymphs (auto) (1.0-4.6) x10^3/uL Absolute Monos (auto) (0.0-1.3) x10^3/uL Absolute Nucleated RBC (0.00-0.01) x10^3u/L Lymphocytes % (24.0-44.0) % Monocytes % (0.0-12.0) % Eosinophils % (0.00-5.0) % Basophils % (0.0-0.4) % Absolute Granulocytes (1.4-6.9) x10^3/uL Basophils # (0-0.4) x10^3/uL Puncture Site LEFT RADIAL pCO2 36 (35-45) mmHg pO2 99 (75-100) mmHg Base Excess -2.2 L (-2.0-2.0) O2 Saturation 94.8 (94-100) g/dF ABG pH 7.40 (7.35-7.45) ABG HCO3 22.3 (22-28) ABG O2 Sat (Measured) 98.4 (95-100) % Jeffrey Test YES A-a Gradient 84 a/A Ratio 0.54 Hemoglobin 9.5 Carboxyhemoglobin 3.1 (0.0-6.9) % THgb Methemoglobin 0.6 L (1.4-1.5) % Temperature 37.0 C POC O2 Flow Rate 32 % Sodium (135-145) mmol/L Potassium 4.7 (3.5-5.1) mmol/L Chloride (98-107) mmol/L Carbon Dioxide (22-30) mmol/L Anion Gap (5-15) MEQ/L BUN (9-20) mg/dL Creatinine (0.66-1.25) mg/dL Estimated GFR ML/MIN Glucose (74-106) mg/dL POC Glucometer (74 to 106) mg/dL Lactic Acid 2.6 H (0.4-2.0) Calcium (8.4-10.2) mg/dL Magnesium (1.6-2.3) mg/dL Total Bilirubin (0.2-1.3) mg/dL AST (17-59) U/L ALT (0-50) U/L Alkaline Phosphatase (38-126) U/L Troponin I (0.000-0.033) ng/mL NT-Pro-B Natriuret Pep (<300) pg/mL Serum Total Protein (6.3-8.2) g/dL Albumin (3.5-5.0) g/dL Procalcitonin 0.108 H (0.030-0.080) ng/mL Urine Color Yellow (Yellow) Urine Appearance Clear (Clear) Urine pH 5.5 (4.6-8.0) Ur Specific Mongo 1.020 (1.005-1.030) Urine Protein >=1000 A (Negative) Urine Glucose (UA) Negative (Negative) mg/dL Urine Ketones Negative (Negative) Urine Blood Small A (Negative) Urine Nitrite Negative (Negative) Urine Bilirubin Negative (Negative) Urine Urobilinogen 1.0 A (0.2) mg/dL Ur Leukocyte Esterase Negative (Negative) U Hyaline Cast (Auto) 3-5 A (0-2) /LPF Urine Microscopic RBC 0-2 (0-5) /HPF Urine Microscopic WBC 0-2 (0-5) /HPF Ur Epithelial Cells None Seen (None Seen) /HPF Urine Bacteria None Seen (None Seen) /HPF Urine Culture Reflexed ORDERED SEPARATELY (NO) 03/15/24 03/15/24 03/15/24 Range/Units 18:59 19:48 22:29 WBC (4.0-10.5) x10^3/uL RBC (4.1-5.6) x10^6/uL Hgb (12.5-18.0) g/dL Hct (42-50) % MCV (78-100) fL MCH (26-32) pg MCHC (32-36) g/dL RDW (11.5-14.0) % Plt Count (150-450) x10^3/uL MPV (7.5-11.0) fL Gran % (36.0-66.0) % Immature Gran % (Auto) (0.00-0.4) % Nucleat RBC Rel Count (0.00-0.1) % Eos # (Auto) (0-0.5) x10^3/uL Immature Gran # (Auto) (0.00-0.03) x10^3u/L Absolute Lymphs (auto) (1.0-4.6) x10^3/uL Absolute Monos (auto) (0.0-1.3) x10^3/uL Absolute Nucleated RBC (0.00-0.01) x10^3u/L Lymphocytes % (24.0-44.0) % Monocytes % (0.0-12.0) % Eosinophils % (0.00-5.0) % Basophils % (0.0-0.4) % Absolute Granulocytes (1.4-6.9) x10^3/uL Basophils # (0-0.4) x10^3/uL Puncture Site pCO2 (35-45) mmHg pO2 (75-100) mmHg Base Excess (-2.0-2.0) O2 Saturation (94-100) g/dF ABG pH (7.35-7.45) ABG HCO3 (22-28) ABG O2 Sat (Measured) (95-100) % Jeffrey Test A-a Gradient a/A Ratio Hemoglobin Carboxyhemoglobin (0.0-6.9) % THgb Methemoglobin (1.4-1.5) % Temperature C POC O2 Flow Rate % Sodium (135-145) mmol/L Potassium (3.5-5.1) mmol/L Chloride (98-107) mmol/L Carbon Dioxide (22-30) mmol/L Anion Gap (5-15) MEQ/L BUN (9-20) mg/dL Creatinine (0.66-1.25) mg/dL Estimated GFR ML/MIN Glucose (74-106) mg/dL POC Glucometer 121 H (74 to 106) mg/dL Lactic Acid 3.6 H (0.4-2.0) Calcium (8.4-10.2) mg/dL Magnesium (1.6-2.3) mg/dL Total Bilirubin (0.2-1.3) mg/dL AST (17-59) U/L ALT (0-50) U/L Alkaline Phosphatase (38-126) U/L Troponin I 0.025 (0.000-0.033) ng/mL NT-Pro-B Natriuret Pep (<300) pg/mL Serum Total Protein (6.3-8.2) g/dL Albumin (3.5-5.0) g/dL Procalcitonin (0.030-0.080) ng/mL Urine Color (Yellow) Urine Appearance (Clear) Urine pH (4.6-8.0) Ur Specific Mongo (1.005-1.030) Urine Protein (Negative) Urine Glucose (UA) (Negative) mg/dL Urine Ketones (Negative) Urine Blood (Negative) Urine Nitrite (Negative) Urine Bilirubin (Negative) Urine Urobilinogen (0.2) mg/dL Ur Leukocyte Esterase (Negative) U Hyaline Cast (Auto) (0-2) /LPF Urine Microscopic RBC (0-5) /HPF Urine Microscopic WBC (0-5) /HPF Ur Epithelial Cells (None Seen) /HPF Urine Bacteria (None Seen) /HPF Urine Culture Reflexed (NO) 03/16/24 03/16/24 03/16/24 Range/Units 00:19 04:37 04:37 WBC 6.8 (4.0-10.5) x10^3/uL RBC 3.28 L (4.1-5.6) x10^6/uL Hgb 9.1 L (12.5-18.0) g/dL Hct 30.9 L (42-50) % MCV 94.2 (78-100) fL MCH 27.7 (26-32) pg MCHC 29.4 L (32-36) g/dL RDW 15.9 H (11.5-14.0) % Plt Count 194 (150-450) x10^3/uL MPV 11.3 H (7.5-11.0) fL Gran % 82.7 H (36.0-66.0) % Immature Gran % (Auto) 0.1 (0.00-0.4) % Nucleat RBC Rel Count 0.0 (0.00-0.1) % Eos # (Auto) 0.08 (0-0.5) x10^3/uL Immature Gran # (Auto) 0.01 (0.00-0.03) x10^3u/L Absolute Lymphs (auto) 0.68 L (1.0-4.6) x10^3/uL Absolute Monos (auto) 0.40 (0.0-1.3) x10^3/uL Absolute Nucleated RBC 0.00 (0.00-0.01) x10^3u/L Lymphocytes % 10.0 L (24.0-44.0) % Monocytes % 5.9 (0.0-12.0) % Eosinophils % 1.2 (0.00-5.0) % Basophils % 0.1 (0.0-0.4) % Absolute Granulocytes 5.64 (1.4-6.9) x10^3/uL Basophils # 0.01 (0-0.4) x10^3/uL Puncture Site pCO2 (35-45) mmHg pO2 (75-100) mmHg Base Excess (-2.0-2.0) O2 Saturation (94-100) g/dF ABG pH (7.35-7.45) ABG HCO3 (22-28) ABG O2 Sat (Measured) (95-100) % Jeffrey Test A-a Gradient a/A Ratio Hemoglobin Carboxyhemoglobin (0.0-6.9) % THgb Methemoglobin (1.4-1.5) % Temperature C POC O2 Flow Rate % Sodium 143 (135-145) mmol/L Potassium 4.9 (3.5-5.1) mmol/L Chloride 113 H (98-107) mmol/L Carbon Dioxide 25 (22-30) mmol/L Anion Gap 10.6 (5-15) MEQ/L BUN 41 H (9-20) mg/dL Creatinine 1.91 H (0.66-1.25) mg/dL Estimated GFR 38.0 ML/MIN Glucose 137 H (74-106) mg/dL POC Glucometer (74 to 106) mg/dL Lactic Acid 1.5 (0.4-2.0) Calcium 8.1 L (8.4-10.2) mg/dL Magnesium (1.6-2.3) mg/dL Total Bilirubin (0.2-1.3) mg/dL AST (17-59) U/L ALT (0-50) U/L Alkaline Phosphatase (38-126) U/L Troponin I (0.000-0.033) ng/mL NT-Pro-B Natriuret Pep 12677 (<300) pg/mL Serum Total Protein (6.3-8.2) g/dL Albumin (3.5-5.0) g/dL Procalcitonin (0.030-0.080) ng/mL Urine Color (Yellow) Urine Appearance (Clear) Urine pH (4.6-8.0) Ur Specific Mongo (1.005-1.030) Urine Protein (Negative) Urine Glucose (UA) (Negative) mg/dL Urine Ketones (Negative) Urine Blood (Negative) Urine Nitrite (Negative) Urine Bilirubin (Negative) Urine Urobilinogen (0.2) mg/dL Ur Leukocyte Esterase (Negative) U Hyaline Cast (Auto) (0-2) /LPF Urine Microscopic RBC (0-5) /HPF Urine Microscopic WBC (0-5) /HPF Ur Epithelial Cells (None Seen) /HPF Urine Bacteria (None Seen) /HPF Urine Culture Reflexed (NO) 03/16/24 03/16/24 Range/Units 04:37 07:14 WBC (4.0-10.5) x10^3/uL RBC (4.1-5.6) x10^6/uL Hgb (12.5-18.0) g/dL Hct (42-50) % MCV (78-100) fL MCH (26-32) pg MCHC (32-36) g/dL RDW (11.5-14.0) % Plt Count (150-450) x10^3/uL MPV (7.5-11.0) fL Gran % (36.0-66.0) % Immature Gran % (Auto) (0.00-0.4) % Nucleat RBC Rel Count (0.00-0.1) % Eos # (Auto) (0-0.5) x10^3/uL Immature Gran # (Auto) (0.00-0.03) x10^3u/L Absolute Lymphs (auto) (1.0-4.6) x10^3/uL Absolute Monos (auto) (0.0-1.3) x10^3/uL Absolute Nucleated RBC (0.00-0.01) x10^3u/L Lymphocytes % (24.0-44.0) % Monocytes % (0.0-12.0) % Eosinophils % (0.00-5.0) % Basophils % (0.0-0.4) % Absolute Granulocytes (1.4-6.9) x10^3/uL Basophils # (0-0.4) x10^3/uL Puncture Site pCO2 (35-45) mmHg pO2 (75-100) mmHg Base Excess (-2.0-2.0) O2 Saturation (94-100) g/dF ABG pH (7.35-7.45) ABG HCO3 (22-28) ABG O2 Sat (Measured) (95-100) % Jeffrey Test A-a Gradient a/A Ratio Hemoglobin Carboxyhemoglobin (0.0-6.9) % THgb Methemoglobin (1.4-1.5) % Temperature C POC O2 Flow Rate % Sodium 144 (135-145) mmol/L Potassium 5.0 (3.5-5.1) mmol/L Chloride 114 H (98-107) mmol/L Carbon Dioxide 23 (22-30) mmol/L Anion Gap 11.7 (5-15) MEQ/L BUN 43 H (9-20) mg/dL Creatinine 1.80 H (0.66-1.25) mg/dL Estimated GFR 40.8 ML/MIN Glucose 136 H (74-106) mg/dL POC Glucometer 94 (74 to 106) mg/dL Lactic Acid (0.4-2.0) Calcium 8.3 L (8.4-10.2) mg/dL Magnesium (1.6-2.3) mg/dL Total Bilirubin 0.40 (0.2-1.3) mg/dL AST 25 (17-59) U/L ALT 31 (0-50) U/L Alkaline Phosphatase 159 H (38-126) U/L Troponin I (0.000-0.033) ng/mL NT-Pro-B Natriuret Pep (<300) pg/mL Serum Total Protein 5.5 L (6.3-8.2) g/dL Albumin 2.8 L (3.5-5.0) g/dL Procalcitonin (0.030-0.080) ng/mL Urine Color (Yellow) Urine Appearance (Clear) Urine pH (4.6-8.0) Ur Specific Mongo (1.005-1.030) Urine Protein (Negative) Urine Glucose (UA) (Negative) mg/dL Urine Ketones (Negative) Urine Blood (Negative) Urine Nitrite (Negative) Urine Bilirubin (Negative) Urine Urobilinogen (0.2) mg/dL Ur Leukocyte Esterase (Negative) U Hyaline Cast (Auto) (0-2) /LPF Urine Microscopic RBC (0-5) /HPF Urine Microscopic WBC (0-5) /HPF Ur Epithelial Cells (None Seen) /HPF Urine Bacteria (None Seen) /HPF Urine Culture Reflexed (NO) Radiology Exams: Radiology Procedures Category Date Time Status CHEST 1 VIEW (PORTABLE) Stat Exams 03/15/24 16:29 Completed ECHO W/2D AND DOPPLER [US] Routine Exams 03/16/24 22:38 Ordered Multi-Disciplinary Progress Notes: Multi-Disciplinary Progress Notes 03/15/24 23:38 Respiratory Note by Raeann Chisholm Called to bedside by nurse, pt's SpO2 88% on 3lpm nasal cannula. Pt changed to 3lpm oxymask at this time. SpO2 93-94%. Will continue to monitor. Initialized on 03/15/24 23:38 - END OF NOTE Assessment/Plan (1) Sepsis Current Visit: Yes Status: Acute Qualifiers: Sepsis type: sepsis due to unspecified organism Sepsis acute organ dysfunction status: with acute organ dysfunction Severe sepsis acute organ dysfunction type: acute respiratory failure Acute respiratory failure type: with hypoxia Assessment & Plan: - 2:2 pneumonia - see plan - Lactic acid on admission 2.6 repeat 3.6- can also be elevated d/t CHF- no IVF gave d/t CHF exacerbation - Lactic acid / 1.5- resolved -On admission RR > 20, HR >90 - MOOKIE (2) MOOKIE (acute kidney injury) Current Visit: Yes Status: Acute Assessment & Plan: - Creat 1.80- baseline normal- trend - Pt also receiving lasix for CHF exacerbation Code(s): N17.9 - ACUTE KIDNEY FAILURE, UNSPECIFIED (3) Acute exacerbation of CHF (congestive heart failure) Current Visit: Yes Status: Acute Assessment & Plan: - Echo - Lasix IV 40mg Q8 - sxs improving - + 3 pitting edema- TEDS, elevated legs - Troponins negative - CXR reviewed Code(s): I50.9 - HEART FAILURE, UNSPECIFIED (4) Pneumonia Current Visit: Yes Status: Acute Assessment & Plan: - 5L oxymask - 95%- wean - CXR 03/15 Portable apical lordotic chest less inflated with new diffuse right lung hazy interstitial alveolar opacities. Cardiomegaly obscures left lung base. No consolidation/large effusion. Bony thorax intact again with osteopenia and degenerative changes. - Antibiotics, steriods, duonebs Code(s): J18.9 - PNEUMONIA, UNSPECIFIED ORGANISM (5) SOB (shortness of breath) Current Visit: No Status: Acute Onset Date: ~10/06/18 Assessment & Plan: - 2:2 CHF, pneumonia- see above plans - On 5Loxymask 95% - Has home O2 and he does not wear - Hx COPD Code(s): R06.02 - SHORTNESS OF BREATH (6) DM w/o complication type II Current Visit: No Status: Chronic Assessment & Plan: - accuchecks ac/HS - Humalog S/S - Carb consistent diet Code(s): E11.9 - TYPE 2 DIABETES MELLITUS WITHOUT COMPLICATIONS (7) Obstructive sleep apnea Current Visit: Yes Status: Acute Assessment & Plan: - OP sleep study ordered Code(s): G47.33 - OBSTRUCTIVE SLEEP APNEA (ADULT) (PEDIATRIC) (8) Hyperlipidemia Current Visit: Yes Status: Chronic Assessment & Plan: - continue Zocor, Zetia - Lipid panel in AM as last one done was 11/05/22 - ADA diet Code(s): E78.5 - HYPERLIPIDEMIA, UNSPECIFIED (9) Obesity (BMI 30.0-34.9) Current Visit: Yes Status: Acute Assessment & Plan: - Advised ADA diet ad exercise control per cardiology recommendations VTE: Plavix, lovenox PPI: protonix Next of KIN: Child- Olegario Marshall- [phone] D/C plan: 1-2 days Code status: SCO- DNR Code(s): E66.9 - OBESITY, UNSPECIFIED
[2024-03-16] MEDS ORDERED: NON-FORMULARY ITEM (Atorvastatin Calcium [Atorvastatin Calcium] 10 MG Tablet) PO SCH (10:00)
[2024-03-16] MEDS ORDERED: ISOSORBIDE MONONITRATE 10 MG PO SCH (10:00)
[2024-03-16] MEDS: Zetia 10 MG PO SCH (10:53)
[2024-03-16] MEDS: PLAVIX Tablet PO SCH (10:53)
[2024-03-16] MEDS: Protonix 40MG Tablet PO SCH (10:53)
[2024-03-16] MEDS: ECOTRIN 81 MG PO SCH (10:53)
[2024-03-16] MEDS: Imdur 30 MG PO SCH (10:53)
[2024-03-16] MEDS: ZYLOPRIM 100 MG PO SCH (10:53)
[2024-03-16] MEDS: Acidophilus TABLET PO SCH (10:53)
[2024-03-16] MEDS: ENOXAPARIN SODIUM SQ SCH (10:53)
[2024-03-16] MEDS: Zocor 10MG PO SCH (22:02)
[2024-03-16] MEDS: HUMALOG SQ PRN (22:03)
[2024-03-16] MEDS: ROCEPHIN 1 GM / 100 ML NaCl 1 GM/100 ML IVPB IV SCH (22:04)
[2024-03-16] MEDS: Zithromax 500 MG/ 250 ML NaCl Premix 500 MG/250 ML IVPB IV SCH (22:49)
[2024-03-17 04:48] LABS: Hematocrit 30.5 % (40.1-51.0); Hemoglobin 9.2 g/dL (13.7-17.5); Mean Cell Volume 92.7 fL (79.0-92.2); Mean Corpuscular Hgb Concent. 30.2 g/dL (32.3-36.5); Mean Platelet Volume 11.6 fL (9.4-12.4); Platelet Count 190 x10^3/uL (163-337); Red Blood Count 3.29 x10^6/uL (4.63-6.08); Red Cell Distribution Width 15.7 % (11.6-14.4); White Blood Count 6.2 x10^3/uL (4.23-9.07)
[2024-03-17 05:21] LABS: ANION GAP 12.2 MEQ/L (5-15); BILIRUBIN,TOTAL 0.4 mg/dL (0.2-1.3); Calcium 8.3 mg/dL (8.4-10.2); Creatinine 1 1.8 mg/dL (0.66-1.25); EST GLOMERULAR FILTRATION RATE 40.8 ML/MIN; Total Protein 5.9 g/dL (6.3-8.2)
--- NOTE | 2024-03-17 13:00 | PCM.CONS ---
History of Present Illness - Date of Consult Date of Encounter: 03/17/24 Consulting Supervisor Of Research: OLEGARIO YOST MD Requesting Provider: ED Provider: [f_Reg Ed Provide Attending Provider: TYRON FOWLER MD Primary Care Provider: PCP: NICCI BYRD Consent was: Given for this tele-med encounter - Consult Narrative Reason for Consult: CHF HPI: Patient is a 68M with history of CAD S/P PCI 25 years ago and CABGx1 15 years ago, recently diagnosed HFrEF (EF 30-35%), HTN, type II DM, hypercholesterolemia, remote tobacco abuse who presented with CHF. He gives a 1- 2 day history of orthopnea and bilateral LE edema. He denies any PND. He initially denies any chest discomfort but later says he always gets ches pressure when he is short of breat. This pressure is different fro his angina prior to PCI and CABG. He admits to having difficulty paying for his medications with his lack of Medicaid. I initially thought he was on Medicare based on his age, but Dr. Indy Rios informed that he does not have Medicare.he has not seen his primary line fisher, Dr. Zev renee in [place], [place] in 2- 3 years. He is open to seeing a new line fisher who attends clinic at [facility].He has been treated with IV furosemide with good diuresis. He was in MOOKIE at admission which is improving with diuresis. LBBB on his ECG is chronic. cc:: The requesting physician will be sent a copy of the consult. Please include patient's PCP: Nicci Byrd Review of Systems - Review of Systems All systems: all other systems reviewed and were unremarkable - Past Medical History Past Medical History: Yes Neurological History: No Pertinent History ENT History: No Pertinent History Cardiac History: Angina, Congestive Heart Failure, Coronary Artery Disease, High Cholesterol, Hypertension, Myocardial Infarction ([place]) Respiratory History: COPD Endocrine Medical History: Diabetes Type II Musculoskelatal History: Osteoarthritis GI Medical History: No Pertinent History History: No Pertinent History Pyscho-Social History: No Pertinent History Male Reproductive Disorders: No Pertinent History Comment: fractured ribs, anemia, gout - Past Surgical History Past Surgical History: Yes Neuro Surgical History: No Pertinent History Cardiac History: CABG, Cardiac Catheterization, Cardiac Stent, Other Respiratory Surgery: Chest Surgery GI Surgical History: No Pertinent History Genitourinary Surgical Hx: No Pertinent History Musculskeletal Surgical Hx: Orthopedic Surgery Male Surgical History: No Pertinent History Other Surgical History: umbilical, triple bypass, L shoulder - Social History Smoking Status: Former smoker How long have you smoked: 53 Exposure to second hand smoke: No Alcohol: None Drug Use: marijuana - Social Determinants of Health Will the patient participate in the screening: Yes Do you worry about a steady place to live?: Yes Do you have any problems with any of the following?: No known problems In the past 12 months,have you had to go without utilities?: No Have you or anyone in your house had to go without enough: Yes Transportation Issues: Yes Has anyone in your support network made you feel unsafe?: No Does the patient want assistance with any of the above?: No Medications & Allergies Home Medications: Home Medication List Losartan Potassium 50 mg [Cozaar 50 MG] 50 mg PO DAILY 05/26/19 [History Confirmed 03/15/24] Ezetimibe 10 mg PO DAILY 04/26/20 [History Confirmed 03/15/24] Clopidogrel Bisulfate [PLAVIX Tablet] 75 mg PO DAILY 02/10/21 [History Confirmed 03/15/24] Allopurinol 100 mg [Zyloprim 100 mg] 200 mg PO DAILY 06/06/21 [History Confirmed 03/15/24] Aspirin EC 81 mg [Ecotrin 81 mg] 81 mg PO DAILY 10/23/22 [History Confirmed 03/15/24] Metformin HCl [Metformin HCl ER] 1,000 mg PO BID 11/05/22 [History Confirmed 03/15/24] Isosorbide Mononitrate 30 mg PO DAILY #52 tablet 11/19/22 [Rx Confirmed 03/15/24] Atorvastatin Calcium 1 tab PO DAILY 03/15/24 [History Confirmed 03/15/24] PANTOPRAZOLE 40 mg Tablet [Protonix 40MG Tablet] 1 tab PO BID 03/15/24 [History Confirmed 03/15/24] Doxycycline Hyclate 100 mg [Vibramycin 100 MG] 100 mg PO BID 7 Days #14 tab 03/17/24 [Rx] Furosemide 20 mg [Lasix 20 mg] 20 mg PO DAILY 30 Days #30 tablet 03/17/24 [Rx] Potassium Chloride 20 meq PO DAILY 30 Days #30 tablet 03/17/24 [Rx] Prednisone 20 mg [Deltasone 20 mg] 20 mg PO BID 5 Days #10 tablet 03/17/24 [Rx] Allergies/Adverse Reactions: Allergies Allergy/AdvReac Type Severity Reaction Status Date / Time gabapentin AdvReac Verified 03/15/24 22:01 Exam - Vitals Vital Signs: Vital Signs - 24 hr Temp Pulse Resp BP Pulse Ox 03/17/24 11:43 96.1 F 75 12 162/77 96 03/17/24 07:06 96.9 F 77 26 H 168/84 98 03/17/24 04:00 96.9 F 70 20 131/73 98 03/17/24 00:33 91 L 03/17/24 00:25 84 L 03/16/24 23:39 97.1 F 84 24 168/74 93 L 03/16/24 19:35 98.0 F 77 16 146/71 92 L 03/16/24 18:50 83 18 90 L 03/16/24 16:00 97.0 F 81 18 161/91 89 L 03/16/24 14:01 73 18 95 General:: no acute distress HEENT: EOMI, JVD (to jaw with patient sitting up 80 degreees.) Cardiovascular Exam: regular rate/rhythm (with frequent irregular beats.), normal heart sounds, murmur (Grade III/ HSM at LLSB. Grade III/ murmurappreciated at apex.) Respiratory Exam: crackles/rales (at left base.) SpO2: 96 Oxygen Delivery: Nasal Cannula Gastrointestinal/Abdomen Exam: normal bowel sounds Extremity Exam: edema (2+ below knees bilaterally. Mild edema of bilateral inner thighs.) Results Vital Signs: Vital Signs - 24 hr Temp Pulse Resp BP Pulse Ox 03/17/24 11:43 96.1 F 75 12 162/77 96 03/17/24 07:06 96.9 F 77 26 H 168/84 98 03/17/24 04:00 96.9 F 70 20 131/73 98 03/17/24 00:33 91 L 03/17/24 00:25 84 L 03/16/24 23:39 97.1 F 84 24 168/74 93 L 06/06/24 19:35 98.0 F 77 16 146/71 92 L 03/16/24 18:50 83 18 90 L 03/16/24 16:00 97.0 F 81 18 161/91 89 L 03/16/24 14:01 73 18 95 Pain Assessment - Last Documented Pain Intensity 0 Intake and Output: Intake & Output 03/15/24 03/16/24 03/17/24 03/18/24 11:59 11:59 11:59 11:59 Intake Total 2620 2671 Output Total 1600 3975 Balance 1020 -1304 Weight 115.2 kg 113.2 kg LAB: I have reviewed the Labs in [facility]. Radiology Exams: Radiology Procedures Category Date Time Status CHEST 1 VIEW (PORTABLE) Stat Exams 03/15/24 16:29 Completed ECHO W/2D AND DOPPLER [US] Routine Exams 03/16/24 22:38 Taken Tracing 1 Attestation: I have reviewed this EKG and interpreted as documented below. 1. 03/16/2024: NSR at 76 bpm. LAd. LBBB. 2. 03/15/2024: NSR at 86 bpm. LAD. LBBB. 3. : NSR at 73 bpm. LAD. LBBB. TTE 03/16/2024: 1. Severely dilated left atrium. Mildly dilated right atrium and right ventricle. Normal left ventricular chamber size. 2. Moderate concentric left ventricular hypertrophy. 3. Moderately depressed left ventricular systolic function due to moderate global hypokinesis with an estimated EF 30-35%. Abnormal motion of the interventricular septum due to LBBB. 4. Moderate diastolic dysfunction. 5. Mildly depressed right ventricular systolic function. 6. Moderate aortic sclerosis without stenosis. 7. Doppler: Moderate tricuspid regurgitation; mild mitral and pulmonic regurgitation. 8. Moderate pulmonary hypertension with an estimated PA systolic pressure 53 mmHg. 9. Mildly elevated right atrial pressure. 10. No pericardial effusion. - ECHO Last ECHO: 03/16/2024:See ECG section Echo: pending (Report in ECG section.) Multi-Disciplinary Progress Notes: Multi-Disciplinary Progress Notes 03/17/24 00:34 Respiratory Note by Jennifer Henriquez RT called to pt bedside for low SpO2. Upon arrival SpO2 was 84% on 2L nasal cannula. Pt was placed on 5L oxymask and SpO2 increased to 91%. Pt is non- compliant PRASHANT. Risks of not wearing CPAP were reviewed with patient, he continues to refuse CPAP at this time. RNGenna notified of increase in O2. Initialized on 03/17/24 00:34 - END OF NOTE Assessment & Plan (1) Acute exacerbation of CHF (congestive heart failure) Current Visit: Yes Status: Acute Qualifiers: Heart failure type: combined systolic and diastolic Assessment & Plan: Acute on chronic combined CHF - Echo demonstrates moderate concentric LVH with moderately depressed LVSF due to moderate global hypokinesis and septal wall motion abnormality related to his LBBB. Estimated EF 30-35%. Need to start GDMT but will be limited now with MOOKIE and current potassium level. Continue furosemide 40 mg IV every 8 hours. This will ultimately be changed to torsemide due to its superior bioavailability compared to furosemide. Start metoprolol succinate 25 mg daily to potential reverse his systolic dysfunction. After correction of his MOOKIE (baseline creatinine 1.2), can restart losartan (cannot afford Entresto). Will not start spironolactone with his potassium level above 4 .6. Cannot start SGLT2 inhibitor due to cost. Continue daily weights, strict I&Os, 2 gram sodium diet. Will need follow-up with local line fisher. Code(s): I50.9 - HEART FAILURE, UNSPECIFIED (2) CAD (coronary artery disease) of artery bypass graft Current Visit: Yes Status: Chronic Qualifiers: [place] vs. transplanted heart: [place] heart Associated angina: without angina Qualified Code(s): I25.810 - Atherosclerosis of coronary artery bypass graft(s) without angina pectoris Assessment & Plan: S/P PCI 25 years ago and CABGx1 15 years ago. Denies any angina since CABG. Chest tightness with current presentation is different. He denies any evaluation for progression of his CAD. Continue aspirin and Plavix. Code(s): I25.810 - ATHEROSCLEROSIS OF CABG W/O ANGINA PECTORIS (3) Left bundle branch block (LBBB) Current Visit: Yes Status: Chronic Assessment & Plan: Chronic. Present since at least . Can consider biventricular pacing in the future if patient does not have improvement in LVEF and CHF on GDMT. Code(s): I44.7 - LEFT BUNDLE-BRANCH BLOCK, UNSPECIFIED (4) MOOKIE (acute kidney injury) Current Visit: Yes Status: Acute Assessment & Plan: Reflective of cardiorenal syndrome, type I caused by elevated renal venous pressures. Creatinine is starting to improve with diuresis (1.94 to 1.80 with a baseline level 1.2). Losartan being held. Restart losartan when creatinine approaches baseline level Code(s): N17.9 - ACUTE KIDNEY FAILURE, UNSPECIFIED (5) Hypertension Current Visit: No Status: Chronic Qualifiers: Hypertension type: primary hypertension Qualified Code(s): I10 - Essential (primary) hypertension Assessment & Plan: Evidence of hypertensive heart disease with moderate LVH on echocardiogram. Potential cause of cardiomyopathy due to global nature of hypokinesis. Target less than 130/80. Currently mild to moderate elevation in BP. Will focus now on diuresis and start losartan when creatinine at baseline. Consider spironolactone in the future if potassium stays less than 4.6. Code(s): I10 - ESSENTIAL (PRIMARY) HYPERTENSION - Encounter Encounter: "The entirety of this encounter was performed via Telemedicine using audio and visual " Olegario Yost MD [facility] [phone]
--- NOTE | 2024-03-17 13:21 | PCM.NOTE ---
Date and Time: 03/17/24 1320 Subjective Assessment: 03/16/24 is a 68 year old male with a history of COPD (not recently on home oxygen), congestive heart failure, CAD (s/p CABG x 2, and follows with Dr. Taylor), hypertension, DM, and hyperlipidemia. He presented in the ER on 03/15/24 with a 2 to 3 days history of progressively worsening shortness of breath. Patient reports minimal productive cough, but no report of hemoptysis. Reports shortness of breath getting worse with activity and partially relieved with resting. He has chronic bilateral leg edema which is worse than baseline, but he denies orthopnea. Prior to arrival he was having some left-sided chest discomfort/pain mild to moderate which improved and route to the ER. Troponins were negative. Patient oxygen saturation was in low 90s on admission, given DuoNeb, placed on 3 L oxygen and improved to 94%. Patient reports he does have oxygen at home but does not use it. No fever or chills reported. According to nail making machine setter staff he appears to have sleep apnea and would benefit from an OP sleep study. Will order if pt is willing. Today he is scheduled to have an Echo. He is currently on 5L oxymask. Lasix for CHF exacerbation.+ 3 pitting edema of BLLE. Antibiotics and steroids for pneumonia continued.He denies Cp today, abd. pain, N/V/D. He feels SOB has improved. 03/17 Pt resting Objective Data Vital Signs: Vital Signs - 24 hr Temp Pulse Resp BP Pulse Ox 03/17/24 13:05 96 03/17/24 11:43 96.1 F 75 12 162/77 96 03/17/24 07:06 96.9 F 77 26 H 168/84 98 03/17/24 04:00 96.9 F 70 20 131/73 98 03/17/24 00:33 91 L 03/17/24 00:25 84 L 03/16/24 23:39 97.1 F 84 24 168/74 93 L 03/16/24 19:35 98.0 F 77 16 146/71 92 L 03/16/24 18:50 83 18 90 L 03/16/24 16:00 97.0 F 81 18 161/91 89 L 03/16/24 14:01 73 18 95 Pain Assessment - Last Documented Pain Intensity 0 Intake and Output: Intake & Output 03/15/24 03/16/24 03/17/24 03/18/24 11:59 11:59 11:59 11:59 Intake Total 2620 2671 Output Total 3042 0885 Balance 1020 -1304 Weight 115.2 kg 113.2 kg Lab Results: Lab Results-Last 24 Hours 03/16/24 03/16/24 03/17/24 Range/Units 16:36 21:29 04:34 WBC (4.23-9.07) x10^3/uL RBC (4.63-6.08) x10^6/uL Hgb (13.7-17.5) g/dL Hct (40.1-51.0) % MCV (79.0-92.2) fL MCH (25.7-32.2) pg MCHC (32.3-36.5) g/dL RDW (11.6-14.4) % Plt Count (163-337) x10^3/uL MPV (9.4-12.4) fL Sodium 139 (135-145) mmol/L Potassium 5.0 (3.5-5.1) mmol/L Chloride 107 (98-107) mmol/L Carbon Dioxide 24 (22-30) mmol/L Anion Gap 12.2 (5-15) MEQ/L BUN 47 H (9-20) mg/dL Creatinine 1.80 H (0.66-1.25) mg/dL Estimated GFR 40.8 ML/MIN Glucose 273 H (74-106) mg/dL POC Glucometer 198 H 303 H (74 to 106) mg/dL Calcium 8.3 L (8.4-10.2) mg/dL Total Bilirubin 0.40 (0.2-1.3) mg/dL AST 26 (17-59) U/L ALT 31 (0-50) U/L Alkaline Phosphatase 158 H (38-126) U/L Serum Total Protein 5.9 L (6.3-8.2) g/dL Albumin 3.0 L (3.5-5.0) g/dL Triglycerides (30-150) mg/dL Cholesterol (50-200) mg/dL LDL Cholesterol (30-100) mg/dL HDL Cholesterol (40-60) mg/dL Heart Disease Risk Ratio 03/17/24 03/17/24 03/17/24 Range/Units 04:34 04:34 06:43 WBC 6.2 (4.23-9.07) x10^3/uL RBC 3.29 L (4.63-6.08) x10^6/uL Hgb 9.2 L (13.7-17.5) g/dL Hct 30.5 L (40.1-51.0) % MCV 92.7 H (79.0-92.2) fL MCH 28.0 (25.7-32.2) pg MCHC 30.2 L (32.3-36.5) g/dL RDW 15.7 H (11.6-14.4) % Plt Count 190 (163-337) x10^3/uL MPV 11.6 (9.4-12.4) fL Sodium (135-145) mmol/L Potassium (3.5-5.1) mmol/L Chloride (98-107) mmol/L Carbon Dioxide (22-30) mmol/L Anion Gap (5-15) MEQ/L BUN (9-20) mg/dL Creatinine (0.66-1.25) mg/dL Estimated GFR ML/MIN Glucose (74-106) mg/dL POC Glucometer 221 H (74 to 106) mg/dL Calcium (8.4-10.2) mg/dL Total Bilirubin (0.2-1.3) mg/dL AST (17-59) U/L ALT (0-50) U/L Alkaline Phosphatase (38-126) U/L Serum Total Protein (6.3-8.2) g/dL Albumin (3.5-5.0) g/dL Triglycerides 51 (30-150) mg/dL Cholesterol 130 (50-200) mg/dL LDL Cholesterol 73 (30-100) mg/dL HDL Cholesterol 52 (40-60) mg/dL Heart Disease Risk Ratio 3.0 03/17/24 Range/Units 11:29 WBC (4.23-9.07) x10^3/uL RBC (4.63-6.08) x10^6/uL Hgb (13.7-17.5) g/dL Hct (40.1-51.0) % MCV (79.0-92.2) fL MCH (25.7-32.2) pg MCHC (32.3-36.5) g/dL RDW (11.6-14.4) % Plt Count (163-337) x10^3/uL MPV (9.4-12.4) fL Sodium (135-145) mmol/L Potassium (3.5-5.1) mmol/L Chloride (98-107) mmol/L Carbon Dioxide (22-30) mmol/L Anion Gap (5-15) MEQ/L BUN (9-20) mg/dL Creatinine (0.66-1.25) mg/dL Estimated GFR ML/MIN Glucose (74-106) mg/dL POC Glucometer 270 H (74 to 106) mg/dL Calcium (8.4-10.2) mg/dL Total Bilirubin (0.2-1.3) mg/dL AST (17-59) U/L ALT (0-50) U/L Alkaline Phosphatase (38-126) U/L Serum Total Protein (6.3-8.2) g/dL Albumin (3.5-5.0) g/dL Triglycerides (30-150) mg/dL Cholesterol (50-200) mg/dL LDL Cholesterol (30-100) mg/dL HDL Cholesterol (40-60) mg/dL Heart Disease Risk Ratio Radiology Exams: Radiology Procedures Category Date Time Status CHEST 1 VIEW (PORTABLE) Stat Exams 03/15/24 16:29 Completed ECHO W/2D AND DOPPLER [US] Routine Exams 03/16/24 22:38 Taken Multi-Disciplinary Progress Notes: Multi-Disciplinary Progress Notes 03/17/24 13:08 Physical Therapy Note by Chuck(Louisa#[id number])Lianna PT. WAS SEEN BY P.T. THIS A.M. C/O BILATERAL KNEE PN R > L. PT. REPORTS KNEE PN IS CHRONIC. PT. HAS RW AND STC BUT USES CANE MOST OF THE TIME WALKER DOES NOT FIT IN [facility]. PT. AGREEABLE TO P.T. AND WAS SEATED ON SIDE OF BED UPON P.T. ARRIVAL TO ROOM. SIT TO STAND - CGA. PT. NOTES KNEE PN W/ SIT TO STAND. PT. AMBULATED ~100' W/ RW AND 2L O2 AND SBA. O2 SATS 94% ON 2L WHILE WALKING. NO UNSTEADINESS NOTED. PT'S GAIT PATTERN MUCH IMPROVED W/ USE OF RW AND THIS WOULD BE P.T. RECOMMENDATION FOR MOBILITY AT D/C. PT. DOES NOT WANT C AT THIS TIME. REPORTS HIS NEIGHBORS ASSIST HIM PRN. 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 Initialized on 03/17/24 13:08 - END OF NOTE 03/17/24 10:30 (created 03/17/24 12:59) Case Management Note by Valerie Allen S/W PATIENT- HE CONTINUES TO DENY ANY NEW NEEDS AT TIME OF DC. HE REPORTS HIS FIRST CONCERN IS GETTING HIS MEDICAID BACK- PATIENT HAS [employer] PHONE NUMBER IN [facility]. HE WAS ENCOURAGED TO CALL HER SO SHE CAN ASSIST HIM WITH THAT. HE HAS AN OXYGEN CONCENTRATOR THAT DOES CONTINUOUS FLOW. WILL BE UNABLE TO SEE MACHINE PRIOR TO DC. PATIENT REPORTS IT IS LOCKED UP IN HIS CAMPER AND HE DOES NOT TRUST ANYONE TO GET IN THERE TO GET IT. HE REPORTS HE HAS HAD SEVERAL THINGS STOLEN FROM HIM. HE PLANS TO DC HOME WITHOUT OXYGEN THEN PUT IT ON WHEN HE GETS HOME. HE WAS INSTRUCTED THAT THIS IS NOT IDEAL HE IS HERE CURRENTLY FOR SOB AND IS REQUIRING THE OXYGEN. PATIENT A&O ABLE TO MAKE OWN DECISIONS. HE IS AWARE THAT THIS IS NOT IDEAL BUT REPORTS THAT IS HIS ONLY OPTION. PATIENT HAS A VERY SMALL CAMPER AND THIS IS THE ONLY MACHINE THAT WILL FIT. PATIENT ADAMENT HE IS NOT GOING TO A HALF-WAY, REHAB OR ASSISTED LIVING. HE PLANS TO RETURN TO HIS CAMPER TO HIS [facility]. ACO PLANS TO FOLLOW UP WITH HIM. Initialized on 03/17/24 12:59 - END OF NOTE 03/17/24 00:34 Respiratory Note by Jennifer Henriquez RT called to pt bedside for low SpO2. Upon arrival SpO2 was 84% on 2L nasal ca nnula. Pt was placed on 5L oxymask and SpO2 increased to 91%. Pt is non- compliant PRASHANT. Risks of not wearing CPAP were reviewed with patient, he continues to refuse CPAP at this time. Genna MITCHELL notified of increase in O2. Initialized on 03/17/24 00:34 - END OF NOTE Assessment/Plan (1) Sepsis Current Visit: Yes Status: Acute Qualifiers: Severe sepsis acute organ dysfunction type: acute respiratory failure (2) MOOKIE (acute kidney injury) Current Visit: Yes Status: Acute Code(s): N17.9 - ACUTE KIDNEY FAILURE, UNSPECIFIED (3) Acute exacerbation of CHF (congestive heart failure) Current Visit: Yes Status: Acute Code(s): I50.9 - HEART FAILURE, UNSPECIFIED (4) Pneumonia Current Visit: Yes Status: Acute Code(s): J18.9 - PNEUMONIA, UNSPECIFIED ORGANISM (5) SOB (shortness of breath) Current Visit: No Status: Acute Onset Date: ~10/06/18 Code(s): R06.02 - SHORTNESS OF BREATH (6) DM w/o complication type II Current Visit: No Status: Chronic Code(s): E11.9 - TYPE 2 DIABETES MELLITUS WITHOUT COMPLICATIONS (7) Hyperlipidemia Current Visit: Yes Status: Chronic Code(s): E78.5 - HYPERLIPIDEMIA, UNSPECIFIED (8) Obesity (BMI 30.0-34.9) Current Visit: Yes Status: Acute Code(s): E66.9 - OBESITY, UNSPECIFIED
--- NOTE | 2024-03-17 13:28 | PCM.DS ---
Discharge Summary Date of Admission: 03/15/24 21:28 Date of Discharge: 03/27/24 Admitting Physician: TYRON FOWLER MD Consults: Consults on Case 03/15/24 16:24 ACO SDOH Referral ONCE 03/16/24 12:40 Consult Cardiology ROUTINE Primary Care Provider: NICCI CLAROS Allergies Allergies gabapentin Adverse Reaction (Verified 03/15/24 22:01) "got kind of loopy" Hospital Summary - Hospital Course Hospital Course: 03/16/24 is a 68 year old male with a history of COPD (not recently on home oxygen), congestive heart failure, CAD (s/p CABG x 2, and follows with Dr. Taylor), hypertension, DM, and hyperlipidemia. He presented in the ER on 03/15/24 with a 2 to 3 days history of progressively worsening shortness of breath. Patient reports minimal productive cough, but no report of hemoptysis. Reports shortness of breath getting worse with activity and partially relieved with resting. He has chronic bilateral leg edema which is worse than baseline, but he denies orthopnea. Prior to arrival he was having some left-sided chest discomfort/pain mild to moderate which improved and route to the ER. Troponins were negative. Patient oxygen saturation was in low 90s on admission, given DuoNeb, placed on 3 L oxygen and improved to 94%. Patient reports he does have oxygen at home but does not use it. No fever or chills reported. According to night time nanny staff he appears to have sleep apnea and would benefit from an OP sleep study. Will order if pt is willing. Today he is scheduled to have an Echo. He is currently on 5L oxymask. Lasix for CHF exacerbation.+ 3 pitting edema of BLLE. Antibiotics and steroids for pneumonia continued.He denies Cp today, abd. pain, N/V/D. He feels SOB has improved. 03/17/24 Pt sitting up in chair. He is on baseline oxygen of 2lNC. He is feeling much better today. Echo shows EF 40% per machines technician, awaiting official read by cardiology. Also awaiting cardiology consult. SOB has resolved. He denies CP today. He would like to d/c today. He has oxygen at home and refuses to let anyone in his camper to get this. Therefore he will be leaving at d/c without Oxygen. He reports he does not live far away and will go home and place it on. He is agreeable to OP sleep study. He will need repeat labs next week with PCP to recheck kidney function. He denies any further concerns at this time. Will continue OP antibiotics for pneumonia. If ok with cardiology will d/c today. - Vitals & Intake/Output Vital Signs: Vital Signs Temperature 96.1 F 03/17/24 11:43 Pulse Rate 75 03/17/24 11:43 Respiratory Rate 12 03/17/24 11:43 Blood Pressure 162/77 03/17/24 11:43 O2 Sat by Pulse Oximetry 96 03/17/24 13:05 Intake & Output: Intake & Output 03/15/24 03/16/24 03/17/24 03/18/24 11:59 11:59 11:59 11:59 Intake Total 2620 2671 Output Total 1600 3975 Balance 1020 -1304 Weight 115.2 kg 113.2 kg - Lab Result Diagrams: 03/17/24 04:34 03/17/24 04:34 Lab Results-Last 24 Hrs: Lab Results-Last 24 Hours 03/16/24 03/16/24 03/17/24 Range/Units 16:36 21:29 04:34 WBC (4.23-9.07) x10^3/uL RBC (4.63-6.08) x10^6/uL Hgb (13.7-17.5) g/dL Hct (40.1-51.0) % MCV (79.0-92.2) fL MCH (25.7-32.2) pg MCHC (32.3-36.5) g/dL RDW (11.6-14.4) % Plt Count (163-337) x10^3/uL MPV (9.4-12.4) fL Sodium 139 (135-145) mmol/L Potassium 5.0 (3.5-5.1) mmol/L Chloride 107 (98-107) mmol/L Carbon Dioxide 24 (22-30) mmol/L Anion Gap 12.2 (5-15) MEQ/L BUN 47 H (9-20) mg/dL Creatinine 1.80 H (0.66-1.25) mg/dL Estimated GFR 40.8 ML/MIN Glucose 273 H (74-106) mg/dL POC Glucometer 198 H 303 H (74 to 106) mg/dL Calcium 8.3 L (8.4-10.2) mg/dL Total Bilirubin 0.40 (0.2-1.3) mg/dL AST 26 (17-59) U/L ALT 31 (0-50) U/L Alkaline Phosphatase 158 H (38-126) U/L Serum Total Protein 5.9 L (6.3-8.2) g/dL Albumin 3.0 L (3.5-5.0) g/dL Triglycerides (30-150) mg/dL Cholesterol (50-200) mg/dL LDL Cholesterol (30-100) mg/dL HDL Cholesterol (40-60) mg/dL Heart Disease Risk Ratio 03/17/24 03/17/24 03/17/24 Range/Units 04:34 04:34 06:43 WBC 6.2 (4.23-9.07) x10^3/uL RBC 3.29 L (4.63-6.08) x10^6/uL Hgb 9.2 L (13.7-17.5) g/dL Hct 30.5 L (40.1-51.0) % MCV 92.7 H (79.0-92.2) fL MCH 28.0 (25.7-32.2) pg MCHC 30.2 L (32.3-36.5) g/dL RDW 15.7 H (11.6-14.4) % Plt Count 190 (163-337) x10^3/uL MPV 11.6 (9.4-12.4) fL Sodium (135-145) mmol/L Potassium (3.5-5.1) mmol/L Chloride (98-107) mmol/L Carbon Dioxide (22-30) mmol/L Anion Gap (5-15) MEQ/L BUN (9-20) mg/dL Creatinine (0.66-1.25) mg/dL Estimated GFR ML/MIN Glucose (74-106) mg/dL POC Glucometer 221 H (74 to 106) mg/dL Calcium (8.4-10.2) mg/dL Total Bilirubin (0.2-1.3) mg/dL AST (17-59) U/L ALT (0-50) U/L Alkaline Phosphatase (38-126) U/L Serum Total Protein (6.3-8.2) g/dL Albumin (3.5-5.0) g/dL Triglycerides 51 (30-150) mg/dL Cholesterol 130 (50-200) mg/dL LDL Cholesterol 73 (30-100) mg/dL HDL Cholesterol 52 (40-60) mg/dL Heart Disease Risk Ratio 3.0 03/17/24 Range/Units 11:29 WBC (4.23-9.07) x10^3/uL RBC (4.63-6.08) x10^6/uL Hgb (13.7-17.5) g/dL Hct (40.1-51.0) % MCV (79.0-92.2) fL MCH (25.7-32.2) pg MCHC (32.3-36.5) g/dL RDW (11.6-14.4) % Plt Count (163-337) x10^3/uL MPV (9.4-12.4) fL Sodium (135-145) mmol/L Potassium (3.5-5.1) mmol/L Chloride (98-107) mmol/L Carbon Dioxide (22-30) mmol/L Anion Gap (5-15) MEQ/L BUN (9-20) mg/dL Creatinine (0.66-1.25) mg/dL Estimated GFR ML/MIN Glucose (74-106) mg/dL POC Glucometer 270 H (74 to 106) mg/dL Calcium (8.4-10.2) mg/dL Total Bilirubin (0.2-1.3) mg/dL AST (17-59) U/L ALT (0-50) U/L Alkaline Phosphatase (38-126) U/L Serum Total Protein (6.3-8.2) g/dL Albumin (3.5-5.0) g/dL Triglycerides (30-150) mg/dL Cholesterol (50-200) mg/dL LDL Cholesterol (30-100) mg/dL HDL Cholesterol (40-60) mg/dL Heart Disease Risk Ratio Micro Results-Entire Visit: Microbiology 03/15/24 17:35 Urine Culture - Final Urine, Catheterized NO GROWTH 03/15/24 16:58 Blood Culture - Preliminary Blood 03/15/24 17:08 Blood Culture - Preliminary Blood Accuchecks Date 03/17/24 Date 03/17/24 Date 03/16/24 Time 11:43 Time 07:06 - Radiology Exams Ordered Rad Exams-Entire Visit: Radiology Procedures Category Date Time Status CHEST 1 VIEW (PORTABLE) Stat Exams 03/15/24 16:29 Completed ECHO W/2D AND DOPPLER [US] Routine Exams 03/16/24 22:38 Taken - Procedures and Test Procedures and Tests throughout Hospitalization: Therapy Orders & Screens 03/15/24 21:30 Oxygen Nasal Cannula 3 lpm Comment: Respiratory Therapy Consult ONCE Comment: Reason For Exam: 03/15/24 22:00 PT Screen per Nursing Assess ONCE Comment: Protocol Order Physician Instructions: Greater than 3 points order PT Admission Screenin Reason For Exam: Triggered on Admission Diagnosis: Acute CHF exacerbation, pneumonia, respiratory failure, acute on chronic re Open Wound/Cellutlitis/Pressure Ulcers: Yes Acute Fx/ORIF/Change in wt bearing status: No Severe MUSCULOSKELETAL pain: No ADL Dysfunction: No Acute CVA w/Hemiparesis/Hemiplegia: No Decreased Functional Mobility/Strength: Yes Sprain/Strain: No Acute Post-op Mobility Dysfunction: No Total Points: 6 RT Screen per Nursing Assess ONCE Comment: Protocol Order Physician Instructions: Greater than 3 points order RT Admission Screen Reason For Exam: Triggered on Admission Diagnosis: Acute CHF exacerbation, pneumonia, respiratory failure, acute on chronic re Diagnosis: Acute CHF exacerbation, pneumonia, respiratory failure, acute on chronic re Pneumonia: Yes Home O2: Yes: doesn't use Asthma: No CHF: Yes Home CPAP/BIPAP: No Home Nebs/MDI: No Total Points: 11 ST Screen per Nursing Assess ONCE Comment: Protocol Order Physician Instructions: Greater than [address] Admission Screening Reason For Exam: Triggered on Admission Diagnosis: Acute CHF exacerbation, pneumonia, respiratory failure, acute on chronic re CVA/Dyshpagia/Aphasia: No Cognitive Deficits: No Dehydration/Nutrition Deficit: No Reflux: No Oral-Motor Difficulties: No Pneumonia: Yes Chcf Resident: No Total Points: 5 03/15/24 22:37 PT Eval & Treat (MD Order) ONCE Reason for Eval:: assess transfers and mobility and oxygen requirements while ambulatory Diagnosis: Acute CHF exacerbation, pneumonia, respiratory failure, acute on chronic re 03/15/24 22:54 EKG REPEAT IN AM Comment: Diagnosis: Acute CHF exacerbation, pneumonia, respiratory failure, acute on chronic re 03/15/24 23:33 Oxygen Oxymask LPM 3 lpm Comment: Diagnosis: Acute CHF exacerbation, pneumonia, respiratory failure, acute on chronic re Discharge Exam General Appearance: no apparent distress, alert, obese Neurologic Exam: alert, oriented x 3, cooperative, normal mood/affect, nml cerebellar function, sensation nml, No motor deficits Eye Exam: PERRL, EOMI, eyes nml inspection Ears, Nose, Throat Exam: normal ENT inspection, pharynx normal, moist mucous membranes Neck Exam: normal inspection, non-tender, supple, full range of motion Respiratory Exam: normal breath sounds, lungs clear, No respiratory distress Cardiovascular Exam: regular rate/rhythm, normal heart sounds Gastrointestinal/Abdomen Exam: soft, No tenderness, No mass Male Genitalia Exam: deferred Rectal Exam: deferred Back Exam: normal inspection, normal range of motion, No CVA tenderness, No vertebral tenderness Extremity Exam: normal inspection, normal range of motion Skin Exam: normal color, warm, dry Final Diagnosis/Problem List - Final Discharge Diagnosis/Problem (1) Sepsis Current Visit: Yes Status: Acute (2) MOOKIE (acute kidney injury) Current Visit: Yes Status: Acute Code(s): N17.9 - ACUTE KIDNEY FAILURE, UNSPECIFIED (3) Acute exacerbation of CHF (congestive heart failure) Current Visit: Yes Status: Acute Code(s): I50.9 - HEART FAILURE, UNSPECIFIED (4) Pneumonia Current Visit: Yes Status: Acute Code(s): J18.9 - PNEUMONIA, UNSPECIFIED ORGANISM (5) SOB (shortness of breath) Current Visit: No Status: Acute Onset Date: ~10/06/18 Code(s): R06.02 - SHORTNESS OF BREATH (6) DM w/o complication type II Current Visit: No Status: Chronic Code(s): E11.9 - TYPE 2 DIABETES MELLITUS WITHOUT COMPLICATIONS (7) Hyperlipidemia Current Visit: Yes Status: Chronic Code(s): E78.5 - HYPERLIPIDEMIA, UNSPECIFIED (8) Obesity (BMI 30.0-34.9) Current Visit: Yes Status: Acute Assessment & Plan: (1) Sepsis Current Visit: Yes Status: Acute Qualifiers: Sepsis type: sepsis due to unspecified organism Sepsis acute organ dysfunction status: with acute organ dysfunction Severe sepsis acute organ dysfunction type: acute respiratory failure Acute respiratory failure type: with hypoxia Assessment & Plan: - 2:2 pneumonia - see plan - Lactic acid on admission 2.6 repeat 3.6- can also be elevated d/t CHF- no IVF gave d/t CHF exacerbation - Lactic acid 03/16 1.5- resolved - On admission RR > 20, HR >90 - MOOKIE (2) MOOKIE (acute kidney injury) Current Visit: Yes Status: Acute Assessment & Plan: - Creat 1.80- baseline normal- trend - Pt also receiving lasix for CHF exacerbation 03/17 - F/u OP for repeat labs to recheck kidney function Code(s): N17.9 - ACUTE KIDNEY FAILURE, UNSPECIFIED (3) Acute exacerbation of CHF (congestive heart failure) Current Visit: Yes Status: Acute Assessment & Plan: - Echo - Lasix IV 40mg Q8 - sxs improving - + 3 pitting edema- TEDS, elevated legs - Troponins negative - CXR reviewed - cardiology consulted 03/17 - will continue lasix OP daily - weight self daily Code(s): I50.9 - HEART FAILURE, UNSPECIFIED (4) Pneumonia Current Visit: Yes Status: Acute Assessment & Plan: - 5L oxymask - 95%- wean - CXR 03/15 Portable apical lordotic chest less inflated with new diffuse right lung hazy interstitial alveolar opacities. Cardiomegaly obscures left lung base. No consolidation/large effusion. Bony thorax intact again with osteopenia and degenerative changes. - Antibiotics, steroids, duonebs 03/17 - continue OP antibiotics and steroids Code(s): J18.9 - PNEUMONIA, UNSPECIFIED ORGANISM (5) SOB (shortness of breath) Current Visit: No Status: Acute Onset Date: ~10/06/18 Assessment & Plan: - 2:2 CHF, pneumonia- see above plans - On 5Loxymask 95% - Has home O2 and he does not wear - Hx COPD 03/17 - On baseline oxygen of 2lNC 92% Code(s): R06.02 - SHORTNESS OF BREATH (6) DM w/o complication type II Current Visit: No Status: Chronic Assessment & Plan: - accuchecks ac/HS - Humalog S/S - Carb consistent diet Code(s): E11.9 - TYPE 2 DIABETES MELLITUS WITHOUT COMPLICATIONS (7) Obstructive sleep apnea Current Visit: Yes Status: Acute Assessment & Plan: - OP sleep study ordered Code(s): G47.33 - OBSTRUCTIVE SLEEP APNEA (ADULT) (PEDIATRIC) (8) Hyperlipidemia Current Visit: Yes Status: Chronic Assessment & Plan: - continue Zocor, Zetia - Lipid panel in AM as last one done was 11/05/22 - ADA diet Code(s): E78.5 - HYPERLIPIDEMIA, UNSPECIFIED (9) Obesity (BMI 30.0-34.9) Current Visit: Yes Status: Acute Assessment & Plan: - Advised ADA diet ad exercise control per cardiology recommendations Code(s): E66.9 - OBESITY, UNSPECIFIED - Discharge Discharge Date: 03/17/24 Disposition: Home, Self-Care Condition: Stable Prescriptions: Continue Losartan Potassium 50 mg [Cozaar 50 MG] 50 mg PO DAILY Ezetimibe 10 mg PO DAILY Clopidogrel Bisulfate [PLAVIX Tablet] 75 mg PO DAILY Allopurinol 100 mg [Zyloprim 100 mg] 200 mg PO DAILY Aspirin EC 81 mg [Ecotrin 81 mg] 81 mg PO DAILY Metformin HCl [Metformin HCl ER] 1,000 mg PO BID Isosorbide Mononitrate 30 mg PO DAILY #52 tablet Atorvastatin Calcium 1 tab PO DAILY PANTOPRAZOLE 40 mg Tablet [Protonix 40MG Tablet] 1 tab PO BID Outpatient Orders: Sleep Study Time Frame: 1 Day, Facility: [facility], Location: RESPIRATORY THERAPY Additional Instructions: YOU CAN REACH THE [facility] [employer] [facility] AT [phone] ext [phone] IF YOU NEED ASSISTANCE WITH GETTING MEDICAID SET UP, MEDS, FOOD, ANY NEEDS. Follow up with: HECTOR HALL PA [NON-STAFF PHY W/O PRIVILEGES] - 03/23/24 9:30 am DMITRY DHALIWAL NP [NON-STAFF PHY W/O PRIVILEGES] - 03/27/24 10:30 am
--- NOTE | 2024-03-17 14:45 | PCM.NOTE ---
Date and Time: 03/17/24 1435 Subjective Assessment: 03/16/24 is a 68 year old male with a history of COPD (not recently on home oxygen), congestive heart failure, CAD (s/p CABG x 2, and follows with Dr. Taylor), hypertension, DM, and hyperlipidemia. He presented in the ER on 03/15/24 with a 2 to 3 days history of progressively worsening shortness of breath. Patient reports minimal productive cough, but no report of hemoptysis. Reports shortness of breath getting worse with activity and partially relieved with resting. He has chronic bilateral leg edema which is worse than baseline, but he denies orthopnea. Prior to arrival he was having some left-sided chest discomfort/pain mild to moderate which improved and route to the ER. Troponins were negative. Patient oxygen saturation was in low 90s on admission, given DuoNeb, placed on 3 L oxygen and improved to 94%. Patient reports he does have oxygen at home but does not use it. No fever or chills reported. According to night clerk auditor staff he appears to have sleep apnea and would benefit from an OP sleep study. Will order if pt is willing. Today he is scheduled to have an Echo. He is currently on 5L oxymask. Lasix for CHF exacerbation.+ 3 pitting edema of BLLE. Antibiotics and steroids for pneumonia continued.He denies Cp today, abd. pain, N/V/D. He feels SOB has improved. 03/17/24 Pt sitting up in chair. He is on baseline oxygen of 2lNC. He is feeling much better today. Echo shows EF 40% per nuclear fuel enrichment technician, awaiting official read by cardiology. Also awaiting cardiology consult. SOB has resolved. He denies CP today. He would like to d/c today. He has oxygen at home and refuses to let anyone in his camper to get this. Therefore he will be leaving at d/c without Oxygen. He reports he does not live far away and will go home and place it on. He is agreeable to OP sleep study. He will need repeat labs next week with PCP to recheck kidney function. He denies any further concerns at this time. Will continue OP antibiotics for pneumonia. If ok with cardiology will d/c today. Discussed pt case with cardiology. Meds to be changed while IP. Cardiology would like pt to stay 2 more days. Discussed pt case with case management they are ok with pt stay. Working on insurance concerns. Pt amenable to staying 2 more days per recommendations. Per cardiology echo EF is closer to 33%. - Review of Systems Constitutional: No Fever, No Chills Eyes: No Symptoms Ears, Nose, & Throat: No Symptoms Respiratory: No Cough, No Short Of Breath Cardiac: No Chest Pain, No Edema, No Syncope Abdominal/Gastrointestinal: No Abdominal Pain, No Nausea, No Vomiting, No Diarrhea Genitourinary Symptoms: No Dysuria Musculoskeletal: No Back Pain, No Neck Pain Skin: No Rash Neurological: No Dizziness, No Focal Weakness, No Sensory Changes Psychological: No Symptoms Endocrine: No Symptoms Hematologic/Lymphatic: No Symptoms Immunological/Allergic: No Symptoms Objective Exam General Appearance: no apparent distress, alert Neurologic Exam: alert, oriented x 3, cooperative, normal mood/affect, nml cerebellar function, sensation nml, No motor deficits Skin Exam: normal color, warm, dry Eye Exam: PERRL, EOMI, eyes nml inspection Ears, Nose, Throat Exam: normal ENT inspection, pharynx normal, moist mucous membranes Neck Exam: normal inspection, non-tender, supple, full range of motion Respiratory Exam: normal breath sounds, lungs clear, No respiratory distress Cardiovascular Exam: regular rate/rhythm, normal heart sounds Gastrointestinal/Abdomen Exam: soft, No tenderness, No mass Extremity Exam: normal inspection, normal range of motion Back Exam: normal inspection, normal range of motion, No CVA tenderness, No vertebral tenderness Male Genitalia Exam: deferred Rectal Exam: deferred Objective Data Vital Signs: Vital Signs - 24 hr Temp Pulse Resp BP Pulse Ox 03/17/24 13:36 95 03/17/24 13:15 76 18 93 L 03/17/24 13:05 96 03/17/24 11:43 96.1 F 75 12 162/77 96 03/17/24 07:06 96.9 F 77 26 H 168/84 98 03/17/24 04:00 96.9 F 70 20 131/73 98 03/17/24 00:33 91 L 03/17/24 00:25 84 L 03/16/24 23:39 97.1 F 84 24 168/74 93 L 03/16/24 19:35 98.0 F 77 16 146/71 92 L 03/16/24 18:50 83 18 90 L 03/16/24 16:00 97.0 F 81 18 161/91 89 L Pain Assessment - Last Documented Pain Intensity 0 Intake and Output: Intake & Output 03/15/24 03/16/24 03/17/24 03/18/24 11:59 11:59 11:59 11:59 Intake Total 2620 2671 450 Output Total 1600 3975 550 Balance 1020 -1304 -100 Weight 115.2 kg 113.2 kg Lab Results: Lab Results-Last 24 Hours 03/16/24 03/16/24 03/17/24 Range/Units 16:36 21:29 04:34 WBC (4.23-9.07) x10^3/uL RBC (4.63-6.08) x10^6/uL Hgb (13.7-17.5) g/dL Hct (40.1-51.0) % MCV (79.0-92.2) fL MCH (25.7-32.2) pg MCHC (32.3-36.5) g/dL RDW (11.6-14.4) % Plt Count (163-337) x10^3/uL MPV (9.4-12.4) fL Sodium 139 (135-145) mmol/L Potassium 5.0 (3.5-5.1) mmol/L Chloride 107 (98-107) mmol/L Carbon Dioxide 24 (22-30) mmol/L Anion Gap 12.2 (5-15) MEQ/L BUN 47 H (9-20) mg/dL Creatinine 1.80 H (0.66-1.25) mg/dL Estimated GFR 40.8 ML/MIN Glucose 273 H (74-106) mg/dL POC Glucometer 198 H 303 H (74 to 106) mg/dL Calcium 8.3 L (8.4-10.2) mg/dL Total Bilirubin 0.40 (0.2-1.3) mg/dL AST 26 (17-59) U/L ALT 31 (0-50) U/L Alkaline Phosphatase 158 H (38-126) U/L Serum Total Protein 5.9 L (6.3-8.2) g/dL Albumin 3.0 L (3.5-5.0) g/dL Triglycerides (30-150) mg/dL Cholesterol (50-200) mg/dL LDL Cholesterol (30-100) mg/dL HDL Cholesterol (40-60) mg/dL Heart Disease Risk Ratio 03/17/24 03/17/24 03/17/24 Range/Units 04:34 04:34 06:43 WBC 6.2 (4.23-9.07) x10^3/uL RBC 3.29 L (4.63-6.08) x10^6/uL Hgb 9.2 L (13.7-17.5) g/dL Hct 30.5 L (40.1-51.0) % MCV 92.7 H (79.0-92.2) fL MCH 28.0 (25.7-32.2) pg MCHC 30.2 L (32.3-36.5) g/dL RDW 15.7 H (11.6-14.4) % Plt Count 190 (163-337) x10^3/uL MPV 11.6 (9.4-12.4) fL Sodium (135-145) mmol/L Potassium (3.5-5.1) mmol/L Chloride (98-107) mmol/L Carbon Dioxide (22-30) mmol/L Anion Gap (5-15) MEQ/L BUN (9-20) mg/dL Creatinine (0.66-1.25) mg/dL Estimated GFR ML/MIN Glucose (74-106) mg/dL POC Glucometer 221 H (74 to 106) mg/dL Calcium (8.4-10.2) mg/dL Total Bilirubin (0.2-1.3) mg/dL AST (17-59) U/L ALT (0-50) U/L Alkaline Phosphatase (38-126) U/L Serum Total Protein (6.3-8.2) g/dL Albumin (3.5-5.0) g/dL Triglycerides 51 (30-150) mg/dL Cholesterol 130 (50-200) mg/dL LDL Cholesterol 73 (30-100) mg/dL HDL Cholesterol 52 (40-60) mg/dL Heart Disease Risk Ratio 3.0 03/17/24 Range/Units 11:29 WBC (4.23-9.07) x10^3/uL RBC (4.63-6.08) x10^6/uL Hgb (13.7-17.5) g/dL Hct (40.1-51.0) % MCV (79.0-92.2) fL MCH (25.7-32.2) pg MCHC (32.3-36.5) g/dL RDW (11.6-14.4) % Plt Count (163-337) x10^3/uL MPV (9.4-12.4) fL Sodium (135-145) mmol/L Potassium (3.5-5.1) mmol/L Chloride (98-107) mmol/L Carbon Dioxide (22-30) mmol/L Anion Gap (5-15) MEQ/L BUN (9-20) mg/dL Creatinine (0.66-1.25) mg/dL Estimated GFR ML/MIN Glucose (74-106) mg/dL POC Glucometer 270 H (74 to 106) mg/dL Calcium (8.4-10.2) mg/dL Total Bilirubin (0.2-1.3) mg/dL AST (17-59) U/L ALT (0-50) U/L Alkaline Phosphatase (38-126) U/L Serum Total Protein (6.3-8.2) g/dL Albumin (3.5-5.0) g/dL Triglycerides (30-150) mg/dL Cholesterol (50-200) mg/dL LDL Cholesterol (30-100) mg/dL HDL Cholesterol (40-60) mg/dL Heart Disease Risk Ratio Radiology Exams: Radiology Procedures Category Date Time Status CHEST 1 VIEW (PORTABLE) Stat Exams 03/15/24 16:29 Completed ECHO W/2D AND DOPPLER [US] Routine Exams 03/16/24 22:38 Taken Multi-Disciplinary Progress Notes: Multi-Disciplinary Progress Notes 03/17/24 14:34 Case Management Note by Valerie Allen S/W ACO- THEY ARE GOING TO BRING PATIENT OVER A GIFT CARD TO HELP WITH HIS MEDICATIONS DC. SARAH CASTELLON IS ALSO GOING TO TALK WITH PATIENT TO GET HIS MEDICAID RESTARTED Initialized on 03/17/24 14:34 - END OF NOTE 03/17/24 13:08 Physical Therapy Note by Chuck(Louisa#[id number]),Lianna PT. WAS SEEN BY [facility] THIS A.M. C/O BILATERAL KNEE PN R > L. PT. REPORTS KNEE PN IS CHRONIC. PT. HAS RW AND STC BUT USES CANE MOST OF THE TIME WALKER DOES NOT FIT IN CAMPER WELL. PT. AGREEABLE TO P.T. AND WAS SEATED ON SIDE OF BED UPON P.T. ARRIVAL TO ROOM. SIT TO STAND - CGA. PT. NOTES KNEE PN W/ SIT TO STAND. PT. AMBULATED ~100' W/ RW AND 2L O2 AND SBA. O2 SATS 94% ON 2L WHILE WALKING. NO UNSTEADINESS NOTED. PT'S GAIT PATTERN MUCH IMPROVED W/ USE OF RW AND THIS WOULD BE P.T. RECOMMENDATION FOR MOBILITY AT D/C. PT. DOES NOT WANT HHC AT THIS TIME. REPORTS HIS NEIGHBORS ASSIST HIM PRN. 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 Initialized on 03/17/24 13:08 - END OF NOTE 03/17/24 10:30 (created 03/17/24 12:59) Case Management Note by Valerie Allen S/W PATIENT- HE CONTINUES TO DENY ANY NEW NEEDS AT TIME OF DC. HE REPORTS HIS FIRST CONCERN IS GETTING HIS MEDICAID BACK- PATIENT HAS JOHNATHAN YAO PHONE NUMBER IN [facility]. HE WAS ENCOURAGED TO CALL HER SO SHE CAN ASSIST HIM WITH THAT. HE HAS AN OXYGEN CONCENTRATOR THAT DOES CONTINUOUS FLOW. WILL BE UNABLE TO SEE MACHINE PRIOR TO DC. PATIENT REPORTS IT IS LOCKED UP IN HIS CAMPER AND HE DOES NOT TRUST ANYONE TO GET IN THERE TO GET IT. HE REPORTS HE HAS HAD SEVERAL THINGS STOLEN FROM HIM. HE PLANS TO DC HOME WITHOUT OXYGEN THEN PUT IT ON WHEN HE GETS HOME. HE WAS INSTRUCTED THAT THIS IS NOT IDEAL HE IS HERE CURRENTLY FOR SOB AND IS REQUIRING THE OXYGEN. PATIENT A&O ABLE TO MAKE OWN DECISIONS. HE IS AWARE THAT THIS IS NOT IDEAL BUT REPORTS THAT IS HIS ONLY OPTION. PATIENT HAS A VERY SMALL CAMPER AND THIS IS THE ONLY MACHINE THAT WILL FIT. PATIENT ADAMENT HE IS NOT GOING TO A SNF, REHAB OR ASSISTED LIVING. HE PLANS TO RETURN TO HIS CAMPER TO HIS F. ACO PLANS TO FOLLOW UP WITH HIM. Initialized on 03/17/24 12:59 - END OF NOTE 03/17/24 00:34 Respiratory Note by Jennifer Henriquez RT called to pt bedside for low SpO2. Upon arrival SpO2 was 84% on 2L nasal cannula. Pt was placed on 5L oxymask and SpO2 increased to 91%. Pt is non- compliant PRASHANT. Risks of not wearing CPAP were reviewed with patient, he continues to refuse CPAP at this time. RNGenna notified of increase in O2. Initialized on 03/17/24 00:34 - END OF NOTE Assessment/Plan (1) Sepsis Current Visit: Yes Status: Acute (2) MOOKIE (acute kidney injury) Current Visit: Yes Status: Acute Code(s): N17.9 - ACUTE KIDNEY FAILURE, UNSPECIFIED (3) Acute exacerbation of CHF (congestive heart failure) Current Visit: Yes Status: Acute Code(s): I50.9 - HEART FAILURE, UNSPECIFIED (4) Pneumonia Current Visit: Yes Status: Acute Code(s): J18.9 - PNEUMONIA, UNSPECIFIED ORGANISM (5) SOB (shortness of breath) Current Visit: No Status: Acute Onset Date: ~10/06/18 Code(s): R06.02 - SHORTNESS OF BREATH (6) DM w/o complication type II Current Visit: No Status: Chronic Code(s): E11.9 - TYPE 2 DIABETES MELLITUS WITHOUT COMPLICATIONS (7) Hyperlipidemia Current Visit: Yes Status: Chronic Code(s): E78.5 - HYPERLIPIDEMIA, UNSPECIFIED (8) Obesity (BMI 30.0-34.9) Current Visit: Yes Status: Acute Assessment & Plan: (1) Sepsis Current Visit: Yes Status: Acute Qualifiers: Sepsis type: sepsis due to unspecified organism Sepsis acute organ dysfunction status: with acute organ dysfunction Severe sepsis acute organ dysfunction type: acute respiratory failure Acute respiratory failure type: with hypoxia Assessment & Plan: - 2:2 pneumonia - see plan - Lactic acid on admission 2.6 repeat 3.6- can also be elevated d/t CHF- no IVF gave d/t CHF exacerbation - Lactic acid 6/6 1.5- resolved - On admission RR > 20, HR >90 - MOOKIE (2) MOOKIE (acute kidney injury) Current Visit: Yes Status: Acute Assessment & Plan: - Creat 1.80- baseline normal- trend - Pt also receiving lasix for CHF exacerbation Code(s): N17.9 - ACUTE KIDNEY FAILURE, UNSPECIFIED (3) Acute exacerbation of CHF (congestive heart failure) Current Visit: Yes Status: Acute Assessment & Plan: - Echo - Lasix IV 40mg Q8 - sxs improving - + 3 pitting edema- TEDS, elevated legs - Troponins negative - CXR reviewed - cardiology consulted 03/17 - Cardiology changing meds adding beta lyndon and torsemide. - Pt to stay 2 more days per cards recs - EF 33% per cardiology Code(s): I50.9 - HEART FAILURE, UNSPECIFIED (4) Pneumonia Current Visit: Yes Status: Acute Assessment & Plan: - 5L oxymask - 95%- wean - CXR 03/15 Portable apical lordotic chest less inflated with new diffuse right lung hazy interstitial alveolar opacities. Cardiomegaly obscures left lung base. No consolidation/large effusion. Bony thorax intact again with osteopenia and degenerative changes. - Antibiotics, steroids, duonebs 03/17 - On BL: 2lNC- 95% Code(s): J18.9 - PNEUMONIA, UNSPECIFIED ORGANISM (5) SOB (shortness of breath) Current Visit: No Status: Acute Onset Date: ~10/06/18 Assessment & Plan: - 2:2 CHF, pneumonia- see above plans - On 5Loxymask 95% - Has home O2 and he does not wear - Hx COPD 03/17 - On baseline oxygen of 2lNC 95% Code(s): R06.02 - SHORTNESS OF BREATH (6) DM w/o complication type II Current Visit: No Status: Chronic Assessment & Plan: - accuchecks ac/HS - Humalog S/S - Carb consistent diet Code(s): E11.9 - TYPE 2 DIABETES MELLITUS WITHOUT COMPLICATIONS (7) Obstructive sleep apnea Current Visit: Yes Status: Acute Assessment & Plan: - OP sleep study ordered Code(s): G47.33 - OBSTRUCTIVE SLEEP APNEA (ADULT) (PEDIATRIC) (8) Hyperlipidemia Current Visit: Yes Status: Chronic Assessment & Plan: - continue Zocor, Zetia - Lipid panel in AM as last one done was 11/05/22 - ADA diet Code(s): E78.5 - HYPERLIPIDEMIA, UNSPECIFIED (9) Obesity (BMI 30.0-34.9) Current Visit: Yes Status: Acute Assessment & Plan: - Advised ADA diet ad exercise control per cardiology recommendations Code(s): E66.9 - OBESITY, UNSPECIFIED VTE: Plavix, lovenox PPI: protonix Next of KIN: Child- Olegario Marshall- [phone] D/C plan: 1-2 days Code status: SCO- DNR Code(s): E66.9 - OBESITY, UNSPECIFIED
[2024-03-17] MEDS: Toprol-Xl 25MG Tablets PO SCH (15:51)
[2024-03-17] MEDS: Cardizem IV 50 MG/10 ML IV ONE (18:41)
[2024-03-18 06:37] LABS: Hematocrit 31.1 % (40.1-51.0); Hemoglobin 9.5 g/dL (13.7-17.5); Mean Corpuscular Hemoglobin 28.1 pg (25.7-32.2); Mean Corpuscular Hgb Concent. 30.5 g/dL (32.3-36.5); Mean Platelet Volume 11.3 fL (9.4-12.4); Platelet Count 206 x10^3/uL (163-337); Red Blood Count 3.38 x10^6/uL (4.63-6.08); Red Cell Distribution Width 15.7 % (11.6-14.4); White Blood Count 9.9 x10^3/uL (4.23-9.07)
[2024-03-18 07:07] LABS: ALBUMIN 3.2 g/dL (3.5-5.0); ANION GAP 10.1 MEQ/L (5-15); BILIRUBIN,TOTAL 0.4 mg/dL (0.2-1.3); Calcium 8.2 mg/dL (8.4-10.2); Creatinine 1 1.69 mg/dL (0.66-1.25); Potassium 5.2 mmol/L (3.5-5.1); Total Protein 6.1 g/dL (6.3-8.2)
--- NOTE | 2024-03-18 09:28 | PCM.NOTE ---
Date and Time: 03/18/24 0919 Subjective Assessment: 03/16/24 is a 68 year old male with a history of COPD (not recently on home oxygen), congestive heart failure, CAD (s/p CABG x 2, and follows with Dr. Taylor), hypertension, DM, and hyperlipidemia. He presented in the ER on 03/15/24 with a 2 to 3 days history of progressively worsening shortness of breath. Patient reports minimal productive cough, but no report of hemoptysis. Reports shortness of breath getting worse with activity and partially relieved with resting. He has chronic bilateral leg edema which is worse than baseline, but he denies orthopnea. Prior to arrival he was having some left-sided chest discomfort/pain mild to moderate which improved and route to the ER. Troponins were negative. Patient oxygen saturation was in low 90s on admission, given DuoNeb, placed on 3 L oxygen and improved to 94%. Patient reports he does have oxygen at home but does not use it. No fever or chills reported. According to evaporative cooler installer staff he appears to have sleep apnea and would benefit from an OP sleep study. Will order if pt is willing. Today he is scheduled to have an Echo. He is currently on 5L oxymask. Lasix for CHF exacerbation.+ 3 pitting edema of BLLE. Antibiotics and steroids for pneumonia continued.He denies Cp today, abd. pain, N/V/D. He feels SOB has improved. 03/17/24 Pt sitting up in chair. He is on baseline oxygen of 2lNC. He is feeling much better today. Echo shows EF 40% per evs tech, awaiting official read by cardiology. Also awaiting cardiology consult. SOB has resolved. He denies CP today. He would like to d/c today. He has oxygen at home and refuses to let anyone in his camper to get this. Therefore he will be leaving at d/c without Oxygen. He reports he does not live far away and will go home and place it on. He is agreeable to OP sleep study. He will need repeat labs next week with PCP to recheck kidney function. He denies any further concerns at this time. Will continue OP antibiotics for pneumonia. If ok with cardiology will d/c today. Discussed pt case with cardiology. Meds to be changed while IP. Cardiology would like pt to stay 2 more days. Discussed pt case with case management they are ok with pt stay. Working on insurance concerns. Pt amenable to staying 2 more days per recommendations. Per cardiology echo EF is closer to 33%. 03/18/24 Pt sitting up in chair. He reports feeling better today. MOOKIE improving. He is on baseline oxygen of 2lNC. K+ 5.2 will recheck at noon. Should lower with continued lasix 40mg Q8. Placed on metoprolol yesterday by cardiology. Per cardiology recs he woulda also like him to go home with Torsemide due to its superior bioavailability compared to furosemide. After correction of his MOOKIE, can restart losartan (cannot afford Entresto). Continue antibiotics, steroids, and duonebs for pneumonia. Pt denies any further concerns at this time. - Review of Systems Constitutional: No Fever, No Chills Eyes: No Symptoms Ears, Nose, & Throat: No Symptoms Respiratory: No Cough, No Short Of Breath Cardiac: No Chest Pain, No Edema, No Syncope Abdominal/Gastrointestinal: No Abdominal Pain, No Nausea, No Vomiting, No Diarrhea Genitourinary Symptoms: No Dysuria Musculoskeletal: No Back Pain, No Neck Pain Skin: No Rash Neurological: No Dizziness, No Focal Weakness, No Sensory Changes Psychological: No Symptoms Endocrine: No Symptoms Hematologic/Lymphatic: No Symptoms Immunological/Allergic: No Symptoms Objective Exam General Appearance: no apparent distress, alert Neurologic Exam: alert, oriented x 3, cooperative, normal mood/affect, nml cerebellar function, sensation nml, No motor deficits Skin Exam: normal color, warm, dry Eye Exam: PERRL, EOMI, eyes nml inspection Ears, Nose, Throat Exam: normal ENT inspection, pharynx normal, moist mucous membranes Neck Exam: normal inspection, non-tender, supple, full range of motion Respiratory Exam: normal breath sounds, lungs clear, No respiratory distress Cardiovascular Exam: regular rate/rhythm, normal heart sounds Gastrointestinal/Abdomen Exam: soft, No tenderness, No mass Extremity Exam: normal inspection, normal range of motion Back Exam: normal inspection, normal range of motion, No CVA tenderness, No vertebral tenderness Male Genitalia Exam: deferred Rectal Exam: deferred Objective Data Vital Signs: Vital Signs - 24 hr Temp Pulse Resp BP Pulse Ox 03/18/24 07:09 72 18 94 L 03/18/24 07:00 97.1 F 72 17 155/78 98 03/18/24 03:00 97.0 F 68 17 135/63 94 L 03/17/24 23:00 97.4 F 76 16 119/81 97 03/17/24 19:45 97.7 F 67 18 146/70 96 03/17/24 18:36 77 16 93 L 03/17/24 16:00 96.4 F 71 14 162/91 95 03/17/24 15:34 96 03/17/24 13:36 95 03/17/24 13:15 76 18 93 L 03/17/24 11:43 96.1 F 75 12 162/77 96 Pain Assessment - Last Documented Pain Intensity 0 Intake and Output: Intake & Output 03/15/24 03/16/24 03/17/24 03/18/24 11:59 11:59 11:59 11:59 Intake Total 2620 2671 1900 Output Total 1600 3975 2250 Balance 1020 -1304 -350 Weight 115.2 kg 113.2 kg Lab Results: Lab Results-Last 24 Hours 03/17/24 03/17/24 03/17/24 Range/Units 11:29 16:23 20:35 WBC (4.23-9.07) x10^3/uL RBC (4.63-6.08) x10^6/uL Hgb (13.7-17.5) g/dL Hct (40.1-51.0) % MCV (79.0-92.2) fL MCH (25.7-32.2) pg MCHC (32.3-36.5) g/dL RDW (11.6-14.4) % Plt Count (163-337) x10^3/uL MPV (9.4-12.4) fL Sodium (135-145) mmol/L Potassium (3.5-5.1) mmol/L Chloride (98-107) mmol/L Carbon Dioxide (22-30) mmol/L Anion Gap (5-15) MEQ/L BUN (9-20) mg/dL Creatinine (0.66-1.25) mg/dL Estimated GFR ML/MIN Glucose (74-106) mg/dL POC Glucometer 270 H 388 H 300 H (74 to 106) mg/dL Calcium (8.4-10.2) mg/dL Total Bilirubin (0.2-1.3) mg/dL AST (17-59) U/L ALT (0-50) U/L Alkaline Phosphatase (38-126) U/L Serum Total Protein (6.3-8.2) g/dL Albumin (3.5-5.0) g/dL 03/18/24 03/18/24 03/18/24 Range/Units 04:00 04:00 06:36 WBC 9.9 H (4.23-9.07) x10^3/uL RBC 3.38 L (4.63-6.08) x10^6/uL Hgb 9.5 L (13.7-17.5) g/dL Hct 31.1 L (40.1-51.0) % MCV 92.0 (79.0-92.2) fL MCH 28.1 (25.7-32.2) pg MCHC 30.5 L (32.3-36.5) g/dL RDW 15.7 H (11.6-14.4) % Plt Count 206 (163-337) x10^3/uL MPV 11.3 (9.4-12.4) fL Sodium 137 (135-145) mmol/L Potassium 5.2 H (3.5-5.1) mmol/L Chloride 104 (98-107) mmol/L Carbon Dioxide 28 (22-30) mmol/L Anion Gap 10.1 (5-15) MEQ/L BUN 53 H (9-20) mg/dL Creatinine 1.69 H (0.66-1.25) mg/dL Estimated GFR 44.0 ML/MIN Glucose 206 H (74-106) mg/dL POC Glucometer 207 H (74 to 106) mg/dL Calcium 8.2 L (8.4-10.2) mg/dL Total Bilirubin 0.40 (0.2-1.3) mg/dL AST 57 (17-59) U/L ALT 57 H (0-50) U/L Alkaline Phosphatase 148 H (38-126) U/L Serum Total Protein 6.1 L (6.3-8.2) g/dL Albumin 3.2 L (3.5-5.0) g/dL Radiology Exams: Radiology Procedures Category Date Time Status ECHO W/2D AND DOPPLER [US] Routine Exams 03/16/24 22:38 Taken Multi-Disciplinary Progress Notes: Multi-Disciplinary Progress Notes 03/17/24 14:34 Case Management Note by Valerie Allen/Ashley ACO- THEY ARE GOING TO BRING PATIENT OVER A GIFT CARD TO HELP WITH HIS MEDICATIONS DC. SARAH CASTELLON IS ALSO GOING TO TALK WITH PATIENT TO GET HIS MEDICAID RESTARTED Initialized on 03/17/24 14:34 - END OF NOTE 03/17/24 13:08 Physical Therapy Note by Chuck(L#[id number])Lianna PT. WAS SEEN BY P.T. THIS A.M. C/O BILATERAL KNEE PN R > L. PT. REPORTS KNEE PN IS CHRONIC. PT. HAS RW AND STC BUT USES CANE MOST OF THE TIME WALKER DOES NOT FIT IN CAMPER WELL. PT. AGREEABLE TO P.T. AND WAS SEATED ON SIDE OF BED UPON P.T. ARRIVAL TO ROOM. SIT TO STAND - CGA. PT. NOTES KNEE PN W/ SIT TO STAND. PT. AMBULATED ~100' W/ RW AND 2L O2 AND SBA. O2 SATS 94% ON 2L WHILE WALKING. NO UNSTEADINESS NOTED. PT'S GAIT PATTERN MUCH IMPROVED W/ USE OF RW AND THIS WOULD BE P.T. RECOMMENDATION FOR MOBILITY AT D/C. PT. DOES NOT WANT C AT THIS TIME. REPORTS HIS NEIGHBORS ASSIST HIM PRN. 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. Initialized on 03/17/24 13:08 - END OF NOTE 03/17/24 10:30 (created 03/17/24 12:59) Case Management Note by Valerie Allen/Ashley PATIENT- HE CONTINUES TO DENY ANY NEW NEEDS AT TIME OF DC. HE REPORTS HIS FIRST CONCERN IS GETTING HIS MEDICAID BACK- PATIENT HAS JOHNATHAN YAO PHONE NUMBER IN [facility]. HE WAS ENCOURAGED TO CALL HER SO SHE CAN ASSIST HIM WITH THAT. HE HAS AN OXYGEN CONCENTRATOR THAT DOES CONTINUOUS FLOW. WILL BE UNABLE TO SEE MACHINE PRIOR TO DC. PATIENT REPORTS IT IS LOCKED UP IN HIS CAMPER AND HE DOES NOT TRUST ANYONE TO GET IN THERE TO GET IT. HE REPORTS HE HAS HAD SEVERAL THINGS STOLEN FROM HIM. HE PLANS TO DC HOME WITHOUT OXYGEN THEN PUT IT ON WHEN HE GETS HOME. HE WAS INSTRUCTED THAT THIS IS NOT IDEAL HE IS HERE CURRENTLY FOR SOB AND IS REQUIRING THE OXYGEN. PATIENT A&O ABLE TO MAKE OWN DECISIONS. HE IS AWARE THAT THIS IS NOT IDEAL BUT REPORTS THAT IS HIS ONLY OPTION. PATIENT HAS A VERY SMALL CAMPER AND THIS IS THE ONLY MACHINE THAT WILL FIT. PATIENT ADAMENT HE IS NOT GOING TO A NURSING HOME, REHAB OR ASSISTED LIVING. HE PLANS TO RETURN TO HIS CAMPER TO HIS PLF. ACO PLANS TO FOLLOW UP WITH HIM. Initialized on 03/17/24 12:59 - END OF NOTE Assessment/Plan (1) Sepsis Current Visit: Yes Status: Acute Qualifiers: Severe sepsis acute organ dysfunction type: acute respiratory failure (2) MOOKIE (acute kidney injury) Current Visit: Yes Status: Acute Code(s): N17.9 - ACUTE KIDNEY FAILURE, UNSPECIFIED (3) Acute exacerbation of CHF (congestive heart failure) Current Visit: Yes Status: Acute Qualifiers: Heart failure type: combined systolic and diastolic Qualified Code(s): I50.43 - Acute on chronic combined systolic (congestive) and diastolic (congestive) heart failure Code(s): I50.9 - HEART FAILURE, UNSPECIFIED (4) Pneumonia Current Visit: Yes Status: Acute Code(s): J18.9 - PNEUMONIA, UNSPECIFIED ORGANISM (5) SOB (shortness of breath) Current Visit: No Status: Acute Onset Date: ~10/06/18 Code(s): R06.02 - SHORTNESS OF BREATH (6) DM w/o complication type II Current Visit: No Status: Chronic Code(s): E11.9 - TYPE 2 DIABETES MELLITUS WITHOUT COMPLICATIONS (7) Hyperlipidemia Current Visit: Yes Status: Chronic Code(s): E78.5 - HYPERLIPIDEMIA, UNSPECIFIED (8) Obesity (BMI 30.0-34.9) Current Visit: Yes Status: Acute Assessment & Plan: (1) Sepsis Current Visit: Yes Status: Acute Qualifiers: Sepsis type: sepsis due to unspecified organism Sepsis acute organ dysfunction status: with acute organ dysfunction Severe sepsis acute organ dysfunction type: acute respiratory failure Acute respiratory failure type: with hypoxia Assessment & Plan: - 2:2 pneumonia - see plan - Lactic acid on admission 2.6 repeat 3.6- can also be elevated d/t CHF- no IVF gave d/t CHF exacerbation - Lactic acid 03/16 1.5- resolved - On admission RR > 20, HR >90 - MOOKIE - resolved (2) MOOKIE (acute kidney injury) Current Visit: Yes Status: Acute Assessment & Plan: - Creat 1.80- baseline 1.2 - Pt also receiving lasix for CHF exacerbation 03/18 - Creat 1.69- improving- trend Code(s): N17.9 - ACUTE KIDNEY FAILURE, UNSPECIFIED (3) Acute exacerbation of CHF (congestive heart failure) Current Visit: Yes Status: Acute Assessment & Plan: - Echo - Lasix IV 40mg Q8 - sxs improving - + 3 pitting edema- TEDS, elevated legs - Troponins negative - CXR reviewed - cardiology consulted 03/17 - Cardiology changing meds adding beta lyndon now and torsemide @ d/c. - Pt to stay 2 more days per cards recs - EF 33% per cardiology - restart Losartan when MOOKIE resolved- as pt cannot afford Entresto 03/18 - TEDS - On 2lNC baseline - reviewed and agree with cardiology recs - Will f/u with cardiology in [place] at d/c - Echo: 1. Severely dilated left atrium. Mildly dilated right atrium and right ventri jose luis. Normal left ventricular chamber size. 2. Moderate concentric left ventricular hypertrophy. 3. Moderately depressed left ventricular systolic function due to moderate global hypokinesis with an estimated EF 30-35%. Abnormal motion of the interventricular septum due to LBBB. 4. Moderate diastolic dysfunction. 5. Mildly depressed right ventricular systolic function. 6. Moderate aortic sclerosis without stenosis. 7. Doppler: Moderate tricuspid regurgitation; mild mitral and pulmonic regurgitation. 8. Moderate pulmonary hypertension with an estimated PA systolic pressure 53 mmHg. 9. Mildly elevated right atrial pressure. 10. No pericardial effusion. Code(s): I50.9 - HEART FAILURE, UNSPECIFIED (4) Pneumonia Current Visit: Yes Status: Acute Assessment & Plan: - 5L oxymask - 95%- wean - CXR 03/15 Portable apical lordotic chest less inflated with new diffuse right lung hazy interstitial alveolar opacities. Cardiomegaly obscures left lung base. No consolidation/large effusion. Bony thorax intact again with osteopenia and degenerative changes. - Antibiotics, steroids, duonebs 03/17 - On BL: 2lNC- 94-95% Code(s): J18.9 - PNEUMONIA, UNSPECIFIED ORGANISM (5) SOB (shortness of breath) Current Visit: No Status: Acute Onset Date: ~10/06/18 Assessment & Plan: - 2:2 CHF, pneumonia- see above plans - On 5Loxymask 95% - Has home O2 and he does not wear - Hx COPD 03/17 - On baseline oxygen of 2lNC 95% 03/18 - Improved - BL O2 2lNC 94% Code(s): R06.02 - SHORTNESS OF BREATH (6) DM w/o complication type II Current Visit: No Status: Chronic Assessment & Plan: - accuchecks ac/HS - Humalog S/S - Carb consistent diet Code(s): E11.9 - TYPE 2 DIABETES MELLITUS WITHOUT COMPLICATIONS (7) Obstructive sleep apnea Current Visit: Yes Status: Acute Assessment & Plan: - OP sleep study ordered Code(s): G47.33 - OBSTRUCTIVE SLEEP APNEA (ADULT) (PEDIATRIC) (8) Hyperlipidemia Current Visit: Yes Status: Chronic Assessment & Plan: - continue Zocor, Zetia - Lipid panel in AM as last one done was 11/05/22 - ADA diet Code(s): E78.5 - HYPERLIPIDEMIA, UNSPECIFIED (9) Obesity (BMI 30.0-34.9) Current Visit: Yes Status: Acute Assessment & Plan: - Advised ADA diet ad exercise control per cardiology recommendations Code(s): E66.9 - OBESITY, UNSPECIFIED VTE: Plavix, lovenox PPI: Protonix Next of KIN: Child- Olegario Marshall- [phone] D/C plan: Wednesday Code status: SCO- DNR Code(s): E66.9 - OBESITY, UNSPECIFIED
[2024-03-19 06:05] LABS: Hematocrit 32.5 % (40.1-51.0); Hemoglobin 9.8 g/dL (13.7-17.5); Mean Cell Volume 91.8 fL (79.0-92.2); Mean Corpuscular Hemoglobin 27.7 pg (25.7-32.2); Mean Corpuscular Hgb Concent. 30.2 g/dL (32.3-36.5); Mean Platelet Volume 11.5 fL (9.4-12.4); Platelet Count 210 x10^3/uL (163-337); Red Blood Count 3.54 x10^6/uL (4.63-6.08); Red Cell Distribution Width 15.5 % (11.6-14.4); White Blood Count 8.6 x10^3/uL (4.23-9.07)
--- NOTE | 2024-03-19 07:33 | PCM.NOTE ---
Date and Time: 03/19/24729 Subjective Assessment: 03/16/24 is a 68 year old male with a history of COPD (not recently on home oxygen), congestive heart failure, CAD (s/p CABG x 2, and follows with Dr. Taylor), hypertension, DM, and hyperlipidemia. He presented in the ER on 03/15/24 with a 2 to 3 days history of progressively worsening shortness of breath. Patient reports minimal productive cough, but no report of hemoptysis. Reports shortness of breath getting worse with activity and partially relieved with resting. He has chronic bilateral leg edema which is worse than baseline, but he denies orthopnea. Prior to arrival he was having some left-sided chest discomfort/pain mild to moderate which improved and route to the ER. Troponins were negative. Patient oxygen saturation was in low 90s on admission, given DuoNeb, placed on 3 L oxygen and improved to 94%. Patient reports he does have oxygen at home but does not use it. No fever or chills reported. According to electrical mechanical technician staff he appears to have sleep apnea and would benefit from an OP sleep study. Will order if pt is willing. Today he is scheduled to have an Echo. He is currently on 5L oxymask. Lasix for CHF exacerbation.+ 3 pitting edema of BLLE. Antibiotics and steroids for pneumonia continued.He denies Cp today, abd. pain, N/V/D. He feels SOB has improved. 03/17/24 Pt sitting up in chair. He is on baseline oxygen of 2lNC. He is feeling much better today. Echo shows EF 40% per building maintenance technician, awaiting official read by cardiology. Also awaiting cardiology consult. SOB has resolved. He denies CP today. He would like to d/c today. He has oxygen at home and refuses to let anyone in his camper to get this. Therefore he will be leaving at d/c without Oxygen. He reports he does not live far away and will go home and place it on. He is agreeable to OP sleep study. He will need repeat labs next week with PCP to recheck kidney function. He denies any further concerns at this time. Will continue OP antibiotics for pneumonia. If ok with cardiology will d/c today. Discussed pt case with cardiology. Meds to be changed while IP. Cardiology would like pt to stay 2 more days. Discussed pt case with case management they are ok with pt stay. Working on insurance concerns. Pt amenable to staying 2 more days per recommendations. Per cardiology echo EF is closer to 33%. 03/18/24 Pt sitting up in chair. He reports feeling better today. MOOKIE improving. He is on baseline oxygen of 2lNC. K+ 5.2 will recheck at noon. Should lower with continued lasix 40mg Q8. Placed on metoprolol yesterday by cardiology. Per cardiology recs he woulda also like him to go home with Torsemide due to its superior bioavailability compared to furosemide. After correction of his MOOKIE, can restart losartan (cannot afford Entresto). Continue antibiotics, steroids, and duonebs for pneumonia. Pt denies any further concerns at this time. 03/19/24 Pt resting in chair. He is feeling better. Plan is for pt to d/c home tomorrow. Case management has worked out a plan for meds to be picked up at pharmacy and purchase by [facility]. He continues to be on baseline O2 of 2LNC- 98%. MOOKIE a bit worse will decrease lasix to BID today. Will change to Torsemide at d/c. He will need to f/u with cardiology in [place] OP. He denies any further concerns at this time. - Review of Systems Constitutional: No Fever, No Chills Eyes: No Symptoms Ears, Nose, & Throat: No Symptoms Respiratory: No Cough, No Short Of Breath Cardiac: No Chest Pain, No Edema, No Syncope Abdominal/Gastrointestinal: No Abdominal Pain, No Nausea, No Vomiting, No Angela rrhea Genitourinary Symptoms: No Dysuria Musculoskeletal: No Back Pain, No Neck Pain Skin: No Rash Neurological: No Dizziness, No Focal Weakness, No Sensory Changes Psychological: No Symptoms Endocrine: No Symptoms Hematologic/Lymphatic: No Symptoms Immunological/Allergic: No Symptoms Objective Exam General Appearance: no apparent distress, alert, obese Neurologic Exam: alert, oriented x 3, cooperative, normal mood/affect, nml cerebellar function, sensation nml, No motor deficits Skin Exam: normal color, warm, dry Eye Exam: PERRL, EOMI, eyes nml inspection Ears, Nose, Throat Exam: normal ENT inspection, pharynx normal, moist mucous membranes Neck Exam: normal inspection, non-tender, supple, full range of motion Respiratory Exam: normal breath sounds, lungs clear, No respiratory distress Cardiovascular Exam: regular rate/rhythm, normal heart sounds Gastrointestinal/Abdomen Exam: soft, No tenderness, No mass Extremity Exam: normal inspection, normal range of motion Back Exam: normal inspection, normal range of motion, No CVA tenderness, No vertebral tenderness Male Genitalia Exam: deferred Rectal Exam: deferred Objective Data Vital Signs: Vital Signs - 24 hr Temp Pulse Resp BP Pulse Ox 03/19/24 07:00 97.9 F 62 16 160/95 99 03/19/24 03:00 97.3 F 63 20 161/85 98 03/18/24 23:00 97.0 F 73 20 139/84 96 03/18/24 19:40 69 18 91 L 03/18/24 19:00 97.7 F 64 18 166/85 93 L 03/18/24 15:00 96.3 F 68 24 155/78 97 03/18/24 11:00 97.3 F 71 20 154/81 95 Pain Assessment - Last Documented Pain Intensity 0 Intake and Output: Intake & Output 03/16/24 03/17/24 03/18/24 03/19/24 11:59 11:59 11:59 11:59 Intake Total 2620 2671 1900 1620 Output Total 1600 3975 2250 3860 Balance 1020 1304 -350 -2240 Weight 115.2 kg 113.2 kg 113 kg Lab Results: Lab Results-Last 24 Hours 03/18/24 03/18/24 03/18/24 Range/Units 11:37 11:58 16:39 WBC (4.23-9.07) x10^3/uL RBC (4.63-6.08) x10^6/uL Hgb (13.7-17.5) g/dL Hct (40.1-51.0) % MCV (79.0-92.2) fL MCH (25.7-32.2) pg MCHC (32.3-36.5) g/dL RDW (11.6-14.4) % Plt Count (163-337) x10^3/uL MPV (9.4-12.4) fL Potassium 4.8 (3.5-5.1) mmol/L POC Glucometer 273 H 251 H (74 to 106) mg/dL 03/18/24 03/19/24 Range/Units 20:29 05:15 WBC 8.6 (4.23-9.07) x10^3/uL RBC 3.54 L (4.63-6.08) x10^6/uL Hgb 9.8 L (13.7-17.5) g/dL Hct 32.5 L (40.1-51.0) % MCV 91.8 (79.0-92.2) fL MCH 27.7 (25.7-32.2) pg MCHC 30.2 L (32.3-36.5) g/dL RDW 15.5 H (11.6-14.4) % Plt Count 210 (163-337) x10^3/uL MPV 11.5 (9.4-12.4) fL Potassium (3.5-5.1) mmol/L POC Glucometer 277 H (74 to 106) mg/dL Assessment/Plan (1) Sepsis Current Visit: Yes Status: Acute Qualifiers: Severe sepsis acute organ dysfunction type: acute respiratory failure (2) MOOKIE (acute kidney injury) Current Visit: Yes Status: Acute Code(s): N17.9 - ACUTE KIDNEY FAILURE, UNSPECIFIED (3) Acute exacerbation of CHF (congestive heart failure) Current Visit: Yes Status: Acute Qualifiers: Heart failure type: combined systolic and diastolic Qualified Code(s): I50.43 - Acute on chronic combined systolic (congestive) and diastolic (congestive) heart failure Code(s): I50.9 - HEART FAILURE, UNSPECIFIED (4) Pneumonia Current Visit: Yes Status: Acute Code(s): J18.9 - PNEUMONIA, UNSPECIFIED ORGANISM (5) SOB (shortness of breath) Current Visit: No Status: Acute Onset Date: ~10/06/18 Code(s): R06.02 - SHORTNESS OF BREATH (6) DM w/o complication type II Current Visit: No Status: Chronic Code(s): E11.9 - TYPE 2 DIABETES MELLITUS WITHOUT COMPLICATIONS (7) Hyperlipidemia Current Visit: Yes Status: Chronic Code(s): E78.5 - HYPERLIPIDEMIA, UNSPECIFIED (8) Obesity (BMI 30.0-34.9) Current Visit: Yes Status: Acute Assessment & Plan: (1) Sepsis Current Visit: Yes Status: Acute Qualifiers: Sepsis type: sepsis due to unspecified organism Sepsis acute organ dysfunction status: with acute organ dysfunction Severe sepsis acute organ dysfunction type: acute respiratory failure Acute respiratory failure type: with hypoxia Assessment & Plan: - 2:2 pneumonia - see plan - Lactic acid on admission 2.6 repeat 3.6- can also be elevated d/t CHF- no IVF gave d/t CHF exacerbation - Lactic acid 03/16 1.5- resolved - On admission RR > 20, HR >90 - MOOKIE - resolved (2) MOOKIE (acute kidney injury) Current Visit: Yes Status: Acute Assessment & Plan: - Creat 1.80- baseline 1.2 - Pt also receiving lasix for CHF exacerbation 03/18 - Creat 1.69- improving- trend 03/19 - Creat 1.83 - changed lasix from QID to BID Code(s): N17.9 - ACUTE KIDNEY FAILURE, UNSPECIFIED (3) Acute exacerbation of CHF (congestive heart failure) Current Visit: Yes Status: Acute Assessment & Plan: - Echo - Lasix IV 40mg Q8 - sxs improving - + 3 pitting edema- TEDS, elevated legs - Troponins negative - CXR reviewed - cardiology consulted 03/17 - Cardiology changing meds adding beta lyndon now and torsemide @ d/c. - Pt to stay 2 more days per cards recs - EF 33% per cardiology - restart Losartan when MOOKIE resolved- as pt cannot afford Entresto 03/18 - TEDS - On 2lNC baseline - reviewed and agree with cardiology recs - Will f/u with cardiology in [place] at d/c - Echo: 1. Severely dilated left atrium. Mildly dilated right atrium and right ventricle. Normal left ventricular chamber size. 2. Moderate concentric left ventricular hypertrophy. 3. Moderately depressed left ventricular systolic function due to moderate global hypokinesis with an estimated EF 30-35%. Abnormal motion of the interventricular septum due to LBBB. 4. Moderate diastolic dysfunction. 5. Mildly depressed right ventricular systolic function. 6. Moderate aortic sclerosis without stenosis. 7. Doppler: Moderate tricuspid regurgitation; mild mitral and pulmonic regurgitation. 8. Moderate pulmonary hypertension with an estimated PA systolic pressure 53 mmHg. 9. Mildly elevated right atrial pressure. 10. No pericardial effusion. 03/19/24 -on baseline 2lNC- 98% - Changed lasix to BID Code(s): I50.9 - HEART FAILURE, UNSPECIFIED (4) Pneumonia Current Visit: Yes Status: Acute Assessment & Plan: - 5L oxymask - 95%- wean - CXR 03/15 Portable apical lordotic chest less inflated with new diffuse right lung hazy interstitial alveolar opacities. Cardiomegaly obscures left lung base. No consolidation/large effusion. Bony thorax intact again with osteopenia and degenerative changes. - Antibiotics, steroids, duonebs 03/17 - On BL: 2lNC- 94-95% 03/19 - On BL O@ 2LNC- 98% Code(s): J18.9 - PNEUMONIA, UNSPECIFIED ORGANISM (5) SOB (shortness of breath) Current Visit: No Status: Acute Onset Date: ~10/06/18 Assessment & Plan: - 2:2 CHF, pneumonia- see above plans - On 5Loxymask 95% - Has home O2 and he does not wear - Hx COPD 03/17 - On baseline oxygen of 2lNC 95% 03/18 - Improved - BL O2 2lNC 94% 03/19 - On BL O@ 2LNC- 98% Code(s): R06.02 - SHORTNESS OF BREATH (6) DM w/o complication type II Current Visit: No Status: Chronic Assessment & Plan: - accuchecks ac/HS - Humalog S/S - Carb consistent diet Code(s): E11.9 - TYPE 2 DIABETES MELLITUS WITHOUT COMPLICATIONS (7) Obstructive sleep apnea Current Visit: Yes Status: Acute Assessment & Plan: - OP sleep study ordered Code(s): G47.33 - OBSTRUCTIVE SLEEP APNEA (ADULT) (PEDIATRIC) (8) Hyperlipidemia Current Visit: Yes Status: Chronic Assessment & Plan: - continue Zocor, Zetia - Lipid panel in AM as last one done was 11/05/22 - ADA diet Code(s): E78.5 - HYPERLIPIDEMIA, UNSPECIFIED (9) Obesity (BMI 30.0-34.9) Current Visit: Yes Status: Acute Assessment & Plan: - Advised ADA diet ad exercise control per cardiology recommendations Code(s): E66.9 - OBESITY, UNSPECIFIED VTE: Plavix, lovenox PPI: Protonix Next of KIN: Child- Olegario Marshall- [phone] D/C plan: Wednesday Code status: SCO- DNR Code(s): E66.9 - OBESITY, UNSPECIFIED Code(s): E66.9 - OBESITY, UNSPECIFIED
[2024-03-19 08:01] LABS: ALBUMIN 3.3 g/dL (3.5-5.0); ANION GAP 10.9 MEQ/L (5-15); BILIRUBIN,TOTAL 0.4 mg/dL (0.2-1.3); Calcium 8.4 mg/dL (8.4-10.2); Creatinine 1 1.83 mg/dL (0.66-1.25); Potassium 4.6 mmol/L (3.5-5.1); Total Protein 6.1 g/dL (6.3-8.2)
[2024-03-19] MEDS: Lasix 40 MG/4 ML IV SCH (21:09)
[2024-03-20 04:49] LABS: Hemoglobin 10.5 g/dL (13.7-17.5); Mean Cell Volume 89.7 fL (79.0-92.2); Mean Corpuscular Hemoglobin 28.5 pg (25.7-32.2); Mean Corpuscular Hgb Concent. 31.8 g/dL (32.3-36.5); Mean Platelet Volume 12.5 fL (9.4-12.4); Platelet Count 213 x10^3/uL (163-337); Red Blood Count 3.68 x10^6/uL (4.63-6.08); Red Cell Distribution Width 15.6 % (11.6-14.4); White Blood Count 8.6 x10^3/uL (4.23-9.07)
[2024-03-20 05:11] LABS: ALBUMIN 3.2 g/dL (3.5-5.0); ANION GAP 10.1 MEQ/L (5-15); BILIRUBIN,TOTAL 0.3 mg/dL (0.2-1.3); Calcium 8.4 mg/dL (8.4-10.2); Creatinine 1 1.78 mg/dL (0.66-1.25); EST GLOMERULAR FILTRATION RATE 41.3 ML/MIN; Potassium 4.5 mmol/L (3.5-5.1); Total Protein 6.2 g/dL (6.3-8.2)
--- NOTE | 2024-03-20 05:12 | PCM.NOTE ---
Date and Time: 03/20/24 2874 Subjective Assessment: is a 68 year old male with a history of COPD (not recently on home oxygen), congestive heart failure, CAD (s/p CABG x 2, and follows with Dr. Taylor), hypertension, DM, and hyperlipidemia. He presented in the ER on 03/15/24 with a 2 to 3 days history of progressively worsening shortness of breath. Prior to arrival he was having some left-sided chest discomfort/pain mild to moderate which improved and route to the ER. Troponins were negative. Patient oxygen saturation was in low 90s on admission, given DuoNeb, placed on 3 L oxygen and improved to 94%. CXR showing right new diffuse hazy interstitial alveolar opacities and cardiomegaly. Patient admitted with Sepsis secondary to pneumonia, MOOKIE, and CHF exacerbation. According to shift production supervisor staff he appears to have sleep apnea and would benefit from an OP sleep study which has been ordered. Pt received IP treatment with Rocephin, azithromycin, steroids, DuoNebs, and lasix. Cardiology consulted, echo with EF at 33%, recommended adding BB and torsemide. Cardiology following patient, creat remains elevated at 1.78 today, recs per cardiology to increase lasix to 80mg TID. Dyspnea and cough have improved. Losartan still being held. Patient is at his baseline of 2L oxygen. Cough is productive with yellow sputum. Lung sounds clear on auscultation. Solu-medrol changed to oral prednisone. Denies fever, cp, abdominal pain, ELIAS, dizziness, N/V/D. - Review of Systems Constitutional: No Symptoms Eyes: No Symptoms Ears, Nose, & Throat: No Symptoms Respiratory: Cough, Short Of Breath, Other (2L NC) Cardiac: Edema (BLE +2 pitting) Abdominal/Gastrointestinal: No Symptoms Genitourinary Symptoms: No Symptoms Musculoskeletal: No Symptoms Skin: No Symptoms Neurological: No Symptoms Psychological: No Symptoms Endocrine: No Symptoms Hematologic/Lymphatic: No Symptoms Objective Exam General Appearance: no apparent distress Neurologic Exam: alert, oriented x 3, cooperative Skin Exam: normal color Eye Exam: PERRL Ears, Nose, Throat Exam: dry mucous membranes Neck Exam: normal inspection Cardiovascular Exam: regular rate/rhythm, normal heart sounds Gastrointestinal/Abdomen Exam: soft, normal bowel sounds Extremity Exam: other (BLE 2+ pitting edema) Back Exam: normal inspection Male Genitalia Exam: deferred Rectal Exam: deferred Objective Data Vital Signs: Vital Signs - 24 hr Temp Pulse Resp BP Pulse Ox 03/20/24 03:00 97.0 F 59 L 18 150/90 99 03/19/24 23:00 98.0 F 71 18 124/73 93 L 03/19/24 20:51 95 03/19/24 19:00 97.5 F 69 18 169/94 94 L 03/19/24 15:00 97.9 F 66 16 163/92 94 L 03/19/24 11:00 98.0 F 80 16 152/75 94 L 03/19/24 07:34 66 16 99 03/19/24 07:00 97.9 F 62 16 160/95 99 Pain Assessment - Last Documented Pain Intensity 0 Intake and Output: Intake & Output 03/17/24 03/18/24 03/19/24 03/20/24 11:59 11:59 11:59 11:59 Intake Total 2671 1900 1620 820 Output Total 0639 5120 9092 3416 Balance -1152 -141 -1609 -1130 Weight 113.2 kg 109.9 kg Lab Results: Lab Results-Last 24 Hours 03/19/24 03/19/24 03/19/24 Range/Units 05:15 05:15 07:32 WBC 8.6 (4.23-9.07) x10^3/uL RBC 3.54 L (4.63-6.08) x10^6/uL Hgb 9.8 L (13.7-17.5) g/dL Hct 32.5 L (40.1-51.0) % MCV 91.8 (79.0-92.2) fL MCH 27.7 (25.7-32.2) pg MCHC 30.2 L (32.3-36.5) g/dL RDW 15.5 H (11.6-14.4) % Plt Count 210 (163-337) x10^3/uL MPV 11.5 (9.4-12.4) fL Sodium 138 (135-145) mmol/L Potassium 4.6 (3.5-5.1) mmol/L Chloride 106 (98-107) mmol/L Carbon Dioxide 25 (22-30) mmol/L Anion Gap 10.9 (5-15) MEQ/L BUN 60 H (9-20) mg/dL Creatinine 1.83 H (0.66-1.25) mg/dL Estimated GFR 40.0 ML/MIN Glucose 221 H (74-106) mg/dL POC Glucometer 180 H (74 to 106) mg/dL Calcium 8.4 (8.4-10.2) mg/dL Total Bilirubin 0.40 (0.2-1.3) mg/dL AST 42 (17-59) U/L ALT 70 H (0-50) U/L Alkaline Phosphatase 152 H (38-126) U/L Serum Total Protein 6.1 L (6.3-8.2) g/dL Albumin 3.3 L (3.5-5.0) g/dL 03/19/24 03/19/24 03/19/24 Range/Units 11:14 16:12 20:45 WBC (4.23-9.07) x10^3/uL RBC (4.63-6.08) x10^6/uL Hgb (13.7-17.5) g/dL Hct (40.1-51.0) % MCV (79.0-92.2) fL MCH (25.7-32.2) pg MCHC (32.3-36.5) g/dL RDW (11.6-14.4) % Plt Count (163-337) x10^3/uL MPV (9.4-12.4) fL Sodium (135-145) mmol/L Potassium (3.5-5.1) mmol/L Chloride (98-107) mmol/L Carbon Dioxide (22-30) mmol/L Anion Gap (5-15) MEQ/L BUN (9-20) mg/dL Creatinine (0.66-1.25) mg/dL Estimated GFR ML/MIN Glucose (74-106) mg/dL POC Glucometer 254 H 264 H 268 H (74 to 106) mg/dL Calcium (8.4-10.2) mg/dL Total Bilirubin (0.2-1.3) mg/dL AST (17-59) U/L ALT (0-50) U/L Alkaline Phosphatase (38-126) U/L Serum Total Protein (6.3-8.2) g/dL Albumin (3.5-5.0) g/dL 03/20/24 Range/Units 04:20 WBC 8.6 (4.23-9.07) x10^3/uL RBC 3.68 L (4.63-6.08) x10^6/uL Hgb 10.5 L (13.7-17.5) g/dL Hct 33.0 L (40.1-51.0) % MCV 89.7 (79.0-92.2) fL MCH 28.5 (25.7-32.2) pg MCHC 31.8 L (32.3-36.5) g/dL RDW 15.6 H (11.6-14.4) % Plt Count 213 (163-337) x10^3/uL MPV 12.5 H (9.4-12.4) fL Sodium (135-145) mmol/L Potassium (3.5-5.1) mmol/L Chloride (98-107) mmol/L Carbon Dioxide (22-30) mmol/L Anion Gap (5-15) MEQ/L BUN (9-20) mg/dL Creatinine (0.66-1.25) mg/dL Estimated GFR ML/MIN Glucose (74-106) mg/dL POC Glucometer (74 to 106) mg/dL Calcium (8.4-10.2) mg/dL Total Bilirubin (0.2-1.3) mg/dL AST (17-59) U/L ALT (0-50) U/L Alkaline Phosphatase (38-126) U/L Serum Total Protein (6.3-8.2) g/dL Albumin (3.5-5.0) g/dL Assessment/Plan (1) Sepsis Current Visit: Yes Status: Acute Qualifiers: Severe sepsis acute organ dysfunction type: acute respiratory failure Assessment & Plan: -secondary to pneumonia - classified with criteria of RR>20,HR > 90, known sour ce of infection - pneumonia, MOOKIE -- Lactic acid on admission 2.6 repeat 3.6- can also be elevated d/t CHF- no IVF gave d/t CHF exacerbation - Lactic acid 03/16 1.5- resolved -no longer meets criteria (2) Pneumonia Current Visit: Yes Status: Acute Assessment & Plan: -- CXR 6/5 Portable apical lordotic chest less inflated with new diffuse right lung hazy interstitial alveolar opacities. Cardiomegaly obscures left lung base. No consolidation/large effusion. Bony thorax intact again with osteopenia and degenerative changes. 03/20: -WBC WNL -Dyspnea and cough have improved, still some yellow sputum -continue Rocephin, dc -azithromycin , steroids-change to prednisone, duonebs -Supplemental oxygen with goal > 92% - now at baseline 2L Code(s): J18.9 - PNEUMONIA, UNSPECIFIED ORGANISM (3) MOOKIE (acute kidney injury) Current Visit: Yes Status: Acute Assessment & Plan: -baseline around 1.2, now at 1.78 -IVF contraindicated due to CHF -Patient receiving lasix 80mg TID for CHF exacerbation - per cardiology recs -Avoid nephrotoxic medications such as JAZZY/ARB/NSAID -Losartan to resume once MOOKIE resolved, continue to hold for now Code(s): N17.9 - ACUTE KIDNEY FAILURE, UNSPECIFIED (4) Acute exacerbation of CHF (congestive heart failure) Current Visit: Yes Status: Acute Qualifiers: Heart failure type: combined systolic and diastolic Qualified Code(s): I50.43 - Acute on chronic combined systolic (congestive) and diastolic (congestive) heart failure Assessment & Plan: -- Echo: EF 33% 1. Severely dilated left atrium. Mildly dilated right atrium and right ventricle. Normal left ventricular chamber size. 2. Moderate concentric left ventricular hypertrophy. 3. Moderately depressed left ventricular systolic function due to moderate global hypokinesis with an estimated EF 30-35%. Abnormal motion of the interventricular septum due to LBBB. 4. Moderate diastolic dysfunction. 5. Mildly depressed right ventricular systolic function. 6. Moderate aortic sclerosis without stenosis. 7. Doppler: Moderate tricuspid regurgitation; mild mitral and pulmonic regurgitation. 8. Moderate pulmonary hypertension with an estimated PA systolic pressure 53 mmHg. 9. Mildly elevated right atrial pressure. 10. No pericardial effusion 03/20: -Cardiology following, recommend increasing lasix to 80mg tid -Cardiology consulted with recs for BB and torsemide on discharge, losartan when kidney function improves - will follow up as OP -DEEPA hose -at baseline oxygen of 2L Code(s): I50.9 - HEART FAILURE, UNSPECIFIED (5) SOB (shortness of breath) Current Visit: No Status: Acute Onset Date: ~10/06/18 Assessment & Plan: -multifocal with CHF/pneumonia -Supplemental oxygen with goal > 92% -Dyspnea improved, on baseline oxygen of 2L -prn Code(s): R06.02 - SHORTNESS OF BREATH (6) Obstructive sleep apnea Current Visit: Yes Status: Acute Assessment & Plan: -OP sleep study ordered Code(s): G47.33 - OBSTRUCTIVE SLEEP APNEA (ADULT) (PEDIATRIC) (7) HLD (hyperlipidemia) Current Visit: Yes Status: Acute Assessment & Plan: -continue zocor/zetia Code(s): E78.5 - HYPERLIPIDEMIA, UNSPECIFIED (8) Obesity (BMI 30.0-34.9) Current Visit: Yes Status: Acute Assessment & Plan: - Advised ADA diet ad exercise control per cardiology recommendations Code(s): E66.9 - OBESITY, UNSPECIFIED (9) DM w/o complication type II Current Visit: No Status: Chronic Assessment & Plan: - accuchecks ac/HS - Humalog S/S - changed to moderate dosing -elevated blood glucose levels secondary to steroids - Carb consistent diet VTE: Plavix, lovenox PPI: Protonix Next of KIN: Child- Olegario Marshall- [phone] D/C plan: Wednesday Code(s): E11.9 - TYPE 2 DIABETES MELLITUS WITHOUT COMPLICATIONS
--- NOTE | 2024-03-20 09:29 | PCM.NOTE ---
Date and Time: 03/20/24927 Subjective Assessment: Orthopnea persists. Denies dyspnea with walking in room. Overall feels better this afternoon. No longer feels chest discomfort which typically occurs when he is short of breath. Exam General:: no acute distress HEENT: EOMI, JVD ([place] up to jaw) Cardiovascular: Regular Rate & Rhythm, s1 s2, no murmurs,rubs,gallops Respiratory:: clear to auscultation enid Abdominal: active bowel sounds x 4 Extremity Exam: edema (Trace below right knee and 1+ below left knee.) Objective Data Vital Signs: Vital Signs - 24 hr Temp Pulse Resp BP Pulse Ox 03/20/24 07:59 66 18 96 03/20/24 07:00 97.8 F 66 16 169/93 93 L 03/20/24 03:00 97.0 F 59 L 18 150/90 99 03/19/24 23:00 98.0 F 71 18 124/73 93 L 03/19/24 20:51 95 03/19/24 19:00 97.5 F 69 18 169/94 94 L 03/19/24 15:00 97.9 F 66 16 163/92 94 L 03/19/24 11:00 98.0 F 80 16 152/75 94 L Pain Assessment - Last Documented Pain Intensity 0 Intake and Output: Intake & Output 03/17/24 03/18/24 03/19/24 03/20/24 11:59 11:59 11:59 11:59 Intake Total 2671 1900 1620 1152 Output Total 3975 2250 4610 2450 Balance -2423 -442 -5564 -0465 Weight 113.2 kg 109.9 kg 109.6 kg Furosemide increased this am from 40 mg IV twice daily to 80 mg IV every 8 hours. Urine output during day shift 3000 ml. LAB: I have reviewed the Labs in [facility]. Lab Results: Lab Results-Last 24 Hours 03/19/24 03/19/24 03/19/24 Range/Units 11:14 16:12 20:45 WBC (4.23-9.07) x10^3/uL RBC (4.63-6.08) x10^6/uL Hgb (13.7-17.5) g/dL Hct (40.1-51.0) % MCV (79.0-92.2) fL MCH (25.7-32.2) pg MCHC (32.3-36.5) g/dL RDW (11.6-14.4) % Plt Count (163-337) x10^3/uL MPV (9.4-12.4) fL Sodium (135-145) mmol/L Potassium (3.5-5.1) mmol/L Chloride (98-107) mmol/L Carbon Dioxide (22-30) mmol/L Anion Gap (5-15) MEQ/L BUN (9-20) mg/dL Creatinine (0.66-1.25) mg/dL Estimated GFR ML/MIN Glucose (74-106) mg/dL POC Glucometer 254 H 264 H 268 H (74 to 106) mg/dL Calcium (8.4-10.2) mg/dL Total Bilirubin (0.2-1.3) mg/dL AST (17-59) U/L ALT (0-50) U/L Alkaline Phosphatase (38-126) U/L Serum Total Protein (6.3-8.2) g/dL Albumin (3.5-5.0) g/dL 03/20/24 03/20/24 03/20/24 Range/Units 04:20 04:20 07:22 WBC 8.6 (4.23-9.07) x10^3/uL RBC 3.68 L (4.63-6.08) x10^6/uL Hgb 10.5 L (13.7-17.5) g/dL Hct 33.0 L (40.1-51.0) % MCV 89.7 (79.0-92.2) fL MCH 28.5 (25.7-32.2) pg MCHC 31.8 L (32.3-36.5) g/dL RDW 15.6 H (11.6-14.4) % Plt Count 213 (163-337) x10^3/uL MPV 12.5 H (9.4-12.4) fL Sodium 138 (135-145) mmol/L Potassium 4.5 (3.5-5.1) mmol/L Chloride 103 (98-107) mmol/L Carbon Dioxide 29 (22-30) mmol/L Anion Gap 10.1 (5-15) MEQ/L BUN 63 H (9-20) mg/dL Creatinine 1.78 H (0.66-1.25) mg/dL Estimated GFR 41.3 ML/MIN Glucose 261 H (74-106) mg/dL POC Glucometer 191 H (74 to 106) mg/dL Calcium 8.4 (8.4-10.2) mg/dL Total Bilirubin 0.30 (0.2-1.3) mg/dL AST 26 (17-59) U/L ALT 59 H (0-50) U/L Alkaline Phosphatase 147 H (38-126) U/L Serum Total Protein 6.2 L (6.3-8.2) g/dL Albumin 3.2 L (3.5-5.0) g/dL Tracing 1 Attestation: I have reviewed this EKG and interpreted as documented below. EKG Narrative: TTE 03/16/2024: 1. Severely dilated left atrium. Mildly dilated right atrium and right ventricle. Normal left ventricular chamber size. 2. Moderate concentric left ventricular hypertrophy. 3. Moderately depressed left ventricular systolic function due to moderate global hypokinesis with an estimated EF 30-35%. Abnormal motion of the interventricular septum due to LBBB. 4. Moderate diastolic dysfunction. 5. Mildly depressed right ventricular systolic function. 6. Moderate aortic sclerosis without stenosis. 7. Doppler: Moderate tricuspid regurgitation; mild mitral and pulmonic regurgitation. 8. Moderate pulmonary hypertension with an estimated PA systolic pressure 53 mmHg. 9. Mildly elevated right atrial pressure. 10. No pericardial effusion. Assessment & Plan (1) Acute exacerbation of CHF (congestive heart failure) Current Visit: Yes Status: Acute Qualifiers: Heart failure type: combined systolic and diastolic Qualified Code(s): I50.43 - Acute on chronic combined systolic (congestive) and diastolic (congestive) heart failure Assessment & Plan: HFrEF (30-35%) Inadequate diuresis over the weekend. He is responding to increase in furosemide dose today. Continue current therapy. Code(s): I50.9 - HEART FAILURE, UNSPECIFIED (2) CAD (coronary artery disease) of artery bypass graft Current Visit: Yes Status: Chronic Qualifiers: [place] vs. transplanted heart: [place] heart Associated angina: without angina Qualified Code(s): I25.810 - Atherosclerosis of coronary artery bypass graft(s) without angina pectoris Assessment & Plan: Stable without angina. Unclear if progression of CAD is contibuting to his cardiomyopathy. Continue anti-platelet agents and metoprolol. Code(s): I25.810 - ATHEROSCLEROSIS OF CABG W/O ANGINA PECTORIS (3) Left bundle branch block (LBBB) Current Visit: Yes Status: Chronic Code(s): I44.7 - LEFT BUNDLE-BRANCH BLOCK, UNSPECIFIED (4) MOOKIE (acute kidney injury) Current Visit: Yes Status: Acute Assessment & Plan: No improvement in renal function over the weekend due to inadequate diuretic dose. Anticipate additional improvement with more aggressive diuresis Last Vital Signs Temp 97.1 F 03/20/24 19:00 Pulse 68 03/20/24 19:00 Resp 18 03/20/24 19:00 BP 161/76 03/20/24 19:00 Pulse Ox 96 03/20/24 19:12 Code(s): N17.9 - ACUTE KIDNEY FAILURE, UNSPECIFIED (5) Hypertension Current Visit: No Status: Chronic Qualifiers: Hypertension type: primary hypertension Qualified Code(s): I10 - Essential (primary) hypertension Assessment & Plan: Remains milldly elevated. Code(s): I10 - ESSENTIAL (PRIMARY) HYPERTENSION - Encounter Encounter: "The entirety of this encounter was performed via Telemedicine using audio and visual "
[2024-03-20] MEDS: DELTASONE 20 MG PO SCH (10:40)
[2024-03-20] MEDS: HUMALOG SQ PRN ×2 (10:41→17:49)
[2024-03-20] MEDS: ENOXAPARIN SODIUM SQ SCH (10:41)
[2024-03-20] MEDS: Lasix 40 MG/4 ML IV SCH (13:04)
[2024-03-20] MEDS: Furosemide 100mg/10 ml Vial IV SCH (22:11)
[2024-03-21 04:31] LABS: Absolute Neutrophil Ct (ANC) 8.48 x10^3/uL (1.78-5.38); BASOPHIL % 0.1 % (0.2-1.2); Basophil (Absolute #) 0.01 x10^3/uL (0.01-0.08); Eosinophil % 0.2 % (0.8-7.0); Eosinophil (Absolute #) 0.02 x10^3/uL (0.04-0.54); Hematocrit 34.9 % (40.1-51.0); Hemoglobin 10.9 g/dL (13.7-17.5); IMMATURE GRAN # 0.05 x10^3u/L (0.001-0.031); IMMATURE GRAN % 0.5 % (0.001-0.429); Lymphocyte (Absolute #) 0.58 x10^3/uL (1.32-3.57); Lymphocytes % 5.9 % (21.8-53.1); Mean Cell Volume 90.4 fL (79.0-92.2); Mean Corpuscular Hemoglobin 28.2 pg (25.7-32.2); Mean Corpuscular Hgb Concent. 31.2 g/dL (32.3-36.5); Mean Platelet Volume 11.9 fL (9.4-12.4); Monocyte (Absolute #) 0.67 x10^3/uL (0.30-0.82); Monocytes % 6.8 % (5.3-12.2); Neutrophil % 86.5 % (34.0-67.9); Platelet Count 227 x10^3/uL (163-337); Red Blood Count 3.86 x10^6/uL (4.63-6.08); Red Cell Distribution Width 15.4 % (11.6-14.4); White Blood Count 9.8 x10^3/uL (4.23-9.07)
[2024-03-21 05:12] LABS: ALBUMIN 3.2 g/dL (3.5-5.0); ANION GAP 9.3 MEQ/L (5-15); BILIRUBIN,TOTAL 0.4 mg/dL (0.2-1.3); Calcium 8.6 mg/dL (8.4-10.2); Creatinine 1 2.02 mg/dL (0.66-1.25); EST GLOMERULAR FILTRATION RATE 35.5 ML/MIN; MAGNESIUM 1.7 mg/dL (1.6-2.3); Total Protein 6.1 g/dL (6.3-8.2)
[2024-03-21 05:54] LABS: Slide Review 1 YES
--- NOTE | 2024-03-21 09:13 | PCM.NOTE ---
Date and Time: 03/21/24 0907 Subjective Assessment: is a 68 year old male with a history of COPD (not recently on home oxygen), congestive heart failure, CAD (s/p CABG x 2, and follows with Dr. Taylor), hypertension, DM, and hyperlipidemia. He presented in the ER on 03/15/24 with a 2 to 3 days history of progressively worsening shortness of breath. Prior to arrival he was having some left-sided chest discomfort/pain mild to moderate which improved and route to the ER. Troponins were negative. Patient oxygen saturation was in low 90s on admission, given DuoNeb, placed on 3 L oxygen and improved to 94%. CXR showing right new diffuse hazy interstitial alveolar opacities and cardiomegaly. Patient admitted with Sepsis secondary to pneumonia, MOOKIE, and CHF exacerbation. According to second shift supervisor staff he appears to have sleep apnea and would benefit from an OP sleep study which has been ordered. Pt received IP treatment with Rocephin, azithromycin, steroids, DuoNebs, and lasix. Cardiology consulted, echo with EF at 33%, recommended adding BB and torsemide. Cardiology following patient, creat remains elevated at 2.02 today, lasix was increased to 80mg TID 03/20/24, with -2998 balance 03/20/24 and -2080 today. Losartan held. 03/21/24: Met and examined patient bedside. Dyspnea and cough have improved. Patient is at his baseline of 2L oxygen prn, he states he has not used it in two days. Patient states he is feeling much improved overall. Cough is productive with white sputum. Lung sounds clear on auscultation. Solu-medrol changed to oral prednisone. BLE edema improved since yesterday although still with 2+ pitting. Denies fever, cp, abdominal pain, ELIAS, dizziness, N/V/D. Plan to decrease lasix to 40mg BID. - Review of Systems Constitutional: No Symptoms Eyes: No Symptoms Ears, Nose, & Throat: No Symptoms Respiratory: Cough, Short Of Breath Cardiac: Edema (BLE edema) Abdominal/Gastrointestinal: No Symptoms Genitourinary Symptoms: No Symptoms Musculoskeletal: No Symptoms Skin: No Symptoms Neurological: No Symptoms Psychological: No Symptoms Endocrine: No Symptoms Hematologic/Lymphatic: No Symptoms Immunological/Allergic: No Symptoms Objective Exam General Appearance: no apparent distress Neurologic Exam: alert, oriented x 3, cooperative Skin Exam: normal color Eye Exam: PERRL Ears, Nose, Throat Exam: normal ENT inspection Neck Exam: normal inspection Respiratory Exam: normal breath sounds, lungs clear Cardiovascular Exam: regular rate/rhythm, normal heart sounds Gastrointestinal/Abdomen Exam: soft, normal bowel sounds Extremity Exam: swelling (BLE edema 2+) Back Exam: normal inspection Male Genitalia Exam: deferred Rectal Exam: deferred Objective Data Vital Signs: Vital Signs - 24 hr Temp Pulse Resp BP Pulse Ox 03/21/24 08:07 64 16 95 03/21/24 07:00 97.5 F 67 19 181/93 99 03/21/24 03:00 97.9 F 63 16 161/77 94 L 03/20/24 23:00 97.1 F 61 18 149/67 91 L 03/20/24 19:12 96 03/20/24 19:00 97.1 F 68 18 161/76 94 L 03/20/24 15:00 97.8 F 110 H 16 128/56 95 03/20/24 11:00 97.8 F 63 16 141/68 93 L Pain Assessment - Last Documented Pain Intensity 0 Intake and Output: Intake & Output 03/18/24 03/19/24 03/20/24 03/21/24 11:59 11:59 11:59 11:59 Intake Total 1900 1620 1152 1700 Output Total 2250 4610 3750 5150 Balance -234 -6661 -9667 -5559 Weight 109.9 kg 109.6 kg 91.308 kg Lab Results: Lab Results-Last 24 Hours 03/20/24 03/20/24 03/20/24 Range/Units 11:30 16:28 21:10 WBC (4.23-9.07) x10^3/uL RBC (4.63-6.08) x10^6/uL Hgb (13.7-17.5) g/dL Hct (40.1-51.0) % MCV (79.0-92.2) fL MCH (25.7-32.2) pg MCHC (32.3-36.5) g/dL RDW (11.6-14.4) % Plt Count (163-337) x10^3/uL MPV (9.4-12.4) fL Gran % (34.0-67.9) % Immature Gran % (Auto) (0.001-0.429) % Nucleat RBC Rel Count (0.00-0.2) % Eos # (Auto) (0.04-0.54) x10^3/uL Immature Gran # (Auto) (0.001-0.031) x10^3u/L Absolute Lymphs (auto) (1.32-3.57) x10^3/uL Absolute Monos (auto) (0.30-0.82) x10^3/uL Absolute Nucleated RBC (0.00-0.012) x10^3u/L Lymphocytes % (21.8-53.1) % Monocytes % (5.3-12.2) % Eosinophils % (0.8-7.0) % Basophils % (0.2-1.2) % Absolute Granulocytes (1.78-5.38) x10^3/uL Basophils # (0.01-0.08) x10^3/uL Sodium (135-145) mmol/L Potassium (3.5-5.1) mmol/L Chloride (98-107) mmol/L Carbon Dioxide (22-30) mmol/L Anion Gap (5-15) MEQ/L BUN (9-20) mg/dL Creatinine (0.66-1.25) mg/dL Estimated GFR ML/MIN Glucose (74-106) mg/dL POC Glucometer 223 H 282 H 274 H (74 to 106) mg/dL Calcium (8.4-10.2) mg/dL Magnesium (1.6-2.3) mg/dL Total Bilirubin (0.2-1.3) mg/dL AST (17-59) U/L ALT (0-50) U/L Alkaline Phosphatase (38-126) U/L Serum Total Protein (6.3-8.2) g/dL Albumin (3.5-5.0) g/dL Slides for Path Review 03/21/24 03/21/24 03/21/24 Range/Units 04:27 04:27 06:59 WBC 9.8 H (4.23-9.07) x10^3/uL RBC 3.86 L (4.63-6.08) x10^6/uL Hgb 10.9 L (13.7-17.5) g/dL Hct 34.9 L (40.1-51.0) % MCV 90.4 (79.0-92.2) fL MCH 28.2 (25.7-32.2) pg MCHC 31.2 L (32.3-36.5) g/dL RDW 15.4 H (11.6-14.4) % Plt Count 227 (163-337) x10^3/uL MPV 11.9 (9.4-12.4) fL Gran % 86.5 H (34.0-67.9) % Immature Gran % (Auto) 0.5 H (0.001-0.429) % Nucleat RBC Rel Count 0.0 (0.00-0.2) % Eos # (Auto) 0.02 L (0.04-0.54) x10^3/uL Immature Gran # (Auto) 0.05 H (0.001-0.031) x10^3u/L Absolute Lymphs (auto) 0.58 L (1.32-3.57) x10^3/uL Absolute Monos (auto) 0.67 (0.30-0.82) x10^3/uL Absolute Nucleated RBC 0.00 (0.00-0.012) x10^3u/L Lymphocytes % 5.9 L (21.8-53.1) % Monocytes % 6.8 (5.3-12.2) % Eosinophils % 0.2 L (0.8-7.0) % Basophils % 0.1 L (0.2-1.2) % Absolute Granulocytes 8.48 H (1.78-5.38) x10^3/uL Basophils # 0.01 (0.01-0.08) x10^3/uL Sodium 140 (135-145) mmol/L Potassium 4.0 (3.5-5.1) mmol/L Chloride 101 (98-107) mmol/L Carbon Dioxide 34 H (22-30) mmol/L Anion Gap 9.3 (5-15) MEQ/L BUN 65 H (9-20) mg/dL Creatinine 2.02 H (0.66-1.25) mg/dL Estimated GFR 35.5 ML/MIN Glucose 164 H (74-106) mg/dL POC Glucometer 170 H (74 to 106) mg/dL Calcium 8.6 (8.4-10.2) mg/dL Magnesium 1.7 (1.6-2.3) mg/dL Total Bilirubin 0.40 (0.2-1.3) mg/dL AST 21 (17-59) U/L ALT 50 (0-50) U/L Alkaline Phosphatase 153 H (38-126) U/L Serum Total Protein 6.1 L (6.3-8.2) g/dL Albumin 3.2 L (3.5-5.0) g/dL Slides for Path Review YES Multi-Disciplinary Progress Notes: Multi-Disciplinary Progress Notes 03/20/24 10:48 Physical Therapy Note by Selma(Louisa#[id number])Brianna PATIENT WAS SEEN IN ROOM FOR THERAPY. PATIENT SITTING UP IN CHAIR IN ROOM WITHOUT O2. SAT 96% AT REST ON ROOM AIR. SIT TO STAND FROM CHAIR WITH PROPER HAND PLACEMENT. SLOW TO RISE WITH FLEXED TRUNK/HIPS AND KNEES AND UNSTEADY WITH STRAIGHT CANE. SWITCHED TO 2 WHEELED WALKER AND ABLE TO ASSUME UPRIGHT POSTURE. AMBULATED 200' WITH 2 WHEELED WALKER. INITIALLY "STIFF" HIP AND KNEES WITH SHORT STEPS AND MINIMAL KNEE FLEXION. AFTER 10-20 FEET NORMALIZATION OF PATTERN THOUGH BASE OF SUPPORT STILL INCREASED AND DECREASED GAIT VELOCITY. WITH WALKER NO LOSS OF BALANCE WITH AMBULATION INCLUDING TURNS AND BACKING TO SIT. 02 SAT AFTER AMBULATION WITHOUT 02 WAS 95%. PATIENT DID NOT WANT TO GO BACK TO BED FOR EXERCISES SO PERFORMED SITTING EXERCISES INCLUDING HIP FLEXION, ADDUCTOR SQUEEZE, HIP ABDUCTION WITH KNEE FLEXED, KNEE FLEXION AND EXTENSION, ANKLE PF/DF. POSSIBLE DISCHARGE TODAY PER PATIENT - HAS NOT SPOKE TO DR YET. DISCUSSED OPTIONS FOR CONTINUED THERAPY - HHC OR OP P.T.. ALSO POSSIBLE ORTHO CONSULT FOR C/O KNEE PAIN (RIGHT >> LEFT). ALSO EDUCATED ON SAFETY AND RECOMMENDED USE OF WALKER (STANDARD DUE TO USING OUTSIDE ON ROUGH TERRAIN). PATIENT DOES NOT WANT ANY THERAPY. DOES NOT THINK ANYTHING ORTHO HAD TO OFFER WOULD HELP DUE TO "THIS KNEE BEING SHATTERED FOR 15 YEARS" - SHOULD BE NOTED PATIENT HAS FUNCTIONAL KNEE ROM AND STRENGTH BY MMT 5/5 BUT PAINFUL. ALSO STATES STRAIGHT CANE IS SAFE FOR HIM AT HOME HE CAN "PLANT IT IN THE YARD" TO HOLD HIM UP. DISCUSSED ABOVE WITH NURSE PRACTITIONER. Initialized on 03/20/24 10:48 - END OF NOTE 03/20/24 10:22 Case Management Note by Valerie Allen S/W PATIENT- HE CONTINUES TO DENY ANY NEW NEEDS AT TIME OF DC. HE CONTINUES TO DECLINE HHC. SARAHELIZA CASTELLON MET WITH PATIENT TO START THE MEDICAID PROCESS. [facility]CO CONTINUES TO PLAN TO CHIEF MEDIA OFFICER MEDS AT [facility] FOR PATIENT. Initialized on 03/20/24 10:22 - END OF NOTE Assessment/Plan (1) Sepsis Current Visit: Yes Status: Acute Qualifiers: Severe sepsis acute organ dysfunction type: acute respiratory failure Assessment & Plan: -secondary to pneumonia - classified with criteria of RR>20,HR > 90, known source of infection - pneumonia, MOOKIE -- Lactic acid on admission 2.6 repeat 3.6- can also be elevated d/t CHF- no IVF gave d/t CHF exacerbation - Lactic acid 03/16 1.5- resolved -no longer meets criteria (2) Pneumonia Current Visit: Yes Status: Acute Assessment & Plan: -- CXR 03/15 Portable apical lordotic chest less inflated with new diffuse right lung hazy interstitial alveolar opacities. Cardiomegaly obscures left lung base. No consolidation/large effusion. Bony thorax intact again with osteopenia and degenerative changes. 03/20: -WBC WNL -Dyspnea and cough have improved, still some yellow sputum -continue Rocephin, dc -azithromycin , steroids-change to prednisone, duonebs -Supplemental oxygen with goal > 92% - now at baseline 2L 03/21: -Lungs clear - pt at baseline oxygen of 2L PRN -continue prednisone/rocephin Code(s): J18.9 - PNEUMONIA, UNSPECIFIED ORGANISM (3) MOOKIE (acute kidney injury) Current Visit: Yes Status: Acute Assessment & Plan: -baseline around 1.2, now at 2.02 -IVF contraindicated due to CHF -Patient receiving lasix 80mg TID for CHF exacerbation - per cardiology recs - will decrease today to 40mg BID -Avoid nephrotoxic medications such as JAZZY/ARB/NSAID -Losartan to resume once MOOKIE resolved, continue to hold for now Code(s): N17.9 - ACUTE KIDNEY FAILURE, UNSPECIFIED (4) Acute exacerbation of CHF (congestive heart failure) Current Visit: Yes Status: Acute Qualifiers: Heart failure type: combined systolic and diastolic Qualified Code(s): I50.43 - Acute on chronic combined systolic (congestive) and diastolic (edvin estive) heart failure Assessment & Plan: -- Echo: EF 33% 1. Severely dilated left atrium. Mildly dilated right atrium and right ventricle. Normal left ventricular chamber size. 2. Moderate concentric left ventricular hypertrophy. 3. Moderately depressed left ventricular systolic function due to moderate global hypokinesis with an estimated EF 30-35%. Abnormal motion of the interventricular septum due to LBBB. 4. Moderate diastolic dysfunction. 5. Mildly depressed right ventricular systolic function. 6. Moderate aortic sclerosis without stenosis. 7. Doppler: Moderate tricuspid regurgitation; mild mitral and pulmonic regurgitation. 8. Moderate pulmonary hypertension with an estimated PA systolic pressure 53 mmHg. 9. Mildly elevated right atrial pressure. 10. No pericardial effusion 03/20: -Cardiology following, recommend increasing lasix to 80mg tid - -Cardiology consulted with recs for BB and torsemide on discharge, losartan when kidney function improves - will follow up as OP -[place] -at baseline oxygen of 2L 03/21: -BLE edema improved -Effective diuresis with -5078 in 24 hours/6.82 lbs lost - will scale back lasix to 40mg BID as MOOKIE worsening Code(s): I50.9 - HEART FAILURE, UNSPECIFIED (5) SOB (shortness of breath) Current Visit: No Status: Acute Onset Date: ~10/06/18 Assessment & Plan: -multifocal with CHF/pneumonia -Supplemental oxygen with goal > 92% -Dyspnea improved, on baseline oxygen of 2L -prn Code(s): R06.02 - SHORTNESS OF BREATH (6) Obstructive sleep apnea Current Visit: Yes Status: Acute Assessment & Plan: -OP sleep study ordered Code(s): G47.33 - OBSTRUCTIVE SLEEP APNEA (ADULT) (PEDIATRIC) (7) HLD (hyperlipidemia) Current Visit: Yes Status: Acute Assessment & Plan: -continue zocor/zetia Code(s): E78.5 - HYPERLIPIDEMIA, UNSPECIFIED (8) Obesity (BMI 30.0-34.9) Current Visit: Yes Status: Acute Assessment & Plan: - Advised ADA diet ad exercise control per cardiology recommendations Code(s): E66.9 - OBESITY, UNSPECIFIED (9) DM w/o complication type II Current Visit: No Status: Chronic Assessment & Plan: - dorota ac/HS - Humalog S/S - changed to high dosing -elevated blood glucose levels secondary to steroids- improving - Carb consistent diet VTE: Plavix, lovenox PPI: Protonix Next of KIN: Child- Olegario Marshall- [phone] D/C plan: Wednesday (2) Pneumonia Current Visit: Yes Status: Acute Code(s): J18.9 - PNEUMONIA, UNSPECIFIED ORGANISM (3) MOOKIE (acute kidney injury) Current Visit: Yes Status: Acute Code(s): N17.9 - ACUTE KIDNEY FAILURE, UNSPECIFIED (4) Acute exacerbation of CHF (congestive heart failure) Current Visit: Yes Status: Acute Qualifiers: Heart failure type: combined systolic and diastolic Qualified Code(s): I50.43 - Acute on chronic combined systolic (congestive) and diastolic (congestive) heart failure Code(s): I50.9 - HEART FAILURE, UNSPECIFIED (5) SOB (shortness of breath) Current Visit: No Status: Acute Onset Date: ~10/06/18 Code(s): R06.02 - SHORTNESS OF BREATH (6) Obstructive sleep apnea Current Visit: Yes Status: Acute Code(s): G47.33 - OBSTRUCTIVE SLEEP APNEA (ADULT) (PEDIATRIC) (7) HLD (hyperlipidemia) Current Visit: Yes Status: Acute Code(s): E78.5 - HYPERLIPIDEMIA, UNSPECIFIED (8) Obesity (BMI 30.0-34.9) Current Visit: Yes Status: Acute Code(s): E66.9 - OBESITY, UNSPECIFIED (9) DM w/o complication type II Current Visit: No Status: Chronic Code(s): E11.9 - TYPE 2 DIABETES MELLITUS WITHOUT COMPLICATIONS
--- NOTE | 2024-03-21 10:15 | PCM.NOTE ---
Date and Time: 03/21/24 1015 Subjective Assessment: Breathing has returned to normal. Feels much better. Exam General:: alert and oriented x 4, no acute distress, alert HEENT: EOMI, No JVD Cardiovascular: Regular Rate & Rhythm, s1 s2, no murmurs,rubs,gallops, other (O ccasional irregular beats) Respiratory:: clear to auscultation enid Abdominal: soft, active bowel sounds x 4 Extremity Exam: edema (1+ edema beowlllllllllllllllllllllllllllllllllllllllllllllllllllllllllmmmmmmmmmmmmmm) Objective Data Vital Signs: Vital Signs - 24 hr Temp Pulse Resp BP Pulse Ox 03/21/24 08:07 64 16 95 03/21/24 07:00 97.5 F 67 19 181/93 99 03/21/24 03:00 97.9 F 63 16 161/77 94 L 03/20/24 23:00 97.1 F 61 18 149/67 91 L 03/20/24 19:12 96 03/20/24 19:00 97.1 F 68 18 161/76 94 L 03/20/24 15:00 97.8 F 110 H 16 128/56 95 03/20/24 11:00 97.8 F 63 16 141/68 93 L Pain Assessment - Last Documented Pain Intensity 2 Intake and Output: Intake & Output 03/18/24 03/19/24 03/20/24 03/21/24 11:59 11:59 11:59 11:59 Intake Total 1900 1620 1152 1700 Output Total 2250 4682 2539 7006 Balance -259 -4045 -7167 -1843 Weight 109.9 kg 109.6 kg 106.5 kg LAB: I have reviewed the Labs in [employer]. Lab Results: Lab Results-Last 24 Hours 03/20/24 03/20/24 03/20/24 Range/Units 11:30 16:28 21:10 WBC (4.23-9.07) x10^3/uL RBC (4.63-6.08) x10^6/uL Hgb (13.7-17.5) g/dL Hct (40.1-51.0) % MCV (79.0-92.2) fL MCH (25.7-32.2) pg MCHC (32.3-36.5) g/dL RDW (11.6-14.4) % Plt Count (163-337) x10^3/uL MPV (9.4-12.4) fL Gran % (34.0-67.9) % Immature Gran % (Auto) (0.001-0.429) % Nucleat RBC Rel Count (0.00-0.2) % Eos # (Auto) (0.04-0.54) x10^3/uL Immature Gran # (Auto) (0.001-0.031) x10^3u/L Absolute Lymphs (auto) (1.32-3.57) x10^3/uL Absolute Monos (auto) (0.30-0.82) x10^3/uL Absolute Nucleated RBC (0.00-0.012) x10^3u/L Lymphocytes % (21.8-53.1) % Monocytes % (5.3-12.2) % Eosinophils % (0.8-7.0) % Basophils % (0.2-1.2) % Absolute Granulocytes (1.78-5.38) x10^3/uL Basophils # (0.01-0.08) x10^3/uL Sodium (135-145) mmol/L Potassium (3.5-5.1) mmol/L Chloride (98-107) mmol/L Carbon Dioxide (22-30) mmol/L Anion Gap (5-15) MEQ/L BUN (9-20) mg/dL Creatinine (0.66-1.25) mg/dL Estimated GFR ML/MIN Glucose (74-106) mg/dL POC Glucometer 223 H 282 H 274 H (74 to 106) mg/dL Calcium (8.4-10.2) mg/dL Magnesium (1.6-2.3) mg/dL Total Bilirubin (0.2-1.3) mg/dL AST (17-59) U/L ALT (0-50) U/L Alkaline Phosphatase (38-126) U/L Serum Total Protein (6.3-8.2) g/dL Albumin (3.5-5.0) g/dL Slides for Path Review 03/21/24 03/21/24 03/21/24 Range/Units 04:27 04:27 06:59 WBC 9.8 H (4.23-9.07) x10^3/uL RBC 3.86 L (4.63-6.08) x10^6/uL Hgb 10.9 L (13.7-17.5) g/dL Hct 34.9 L (40.1-51.0) % MCV 90.4 (79.0-92.2) fL MCH 28.2 (25.7-32.2) pg MCHC 31.2 L (32.3-36.5) g/dL RDW 15.4 H (11.6-14.4) % Plt Count 227 (163-337) x10^3/uL MPV 11.9 (9.4-12.4) fL Gran % 86.5 H (34.0-67.9) % Immature Gran % (Auto) 0.5 H (0.001-0.429) % Nucleat RBC Rel Count 0.0 (0.00-0.2) % Eos # (Auto) 0.02 L (0.04-0.54) x10^3/uL Immature Gran # (Auto) 0.05 H (0.001-0.031) x10^3u/L Absolute Lymphs (auto) 0.58 L (1.32-3.57) x10^3/uL Absolute Monos (auto) 0.67 (0.30-0.82) x10^3/uL Absolute Nucleated RBC 0.00 (0.00-0.012) x10^3u/L Lymphocytes % 5.9 L (21.8-53.1) % Monocytes % 6.8 (5.3-12.2) % Eosinophils % 0.2 L (0.8-7.0) % Basophils % 0.1 L (0.2-1.2) % Absolute Granulocytes 8.48 H (1.78-5.38) x10^3/uL Basophils # 0.01 (0.01-0.08) x10^3/uL Sodium 140 (135-145) mmol/L Potassium 4.0 (3.5-5.1) mmol/L Chloride 101 (98-107) mmol/L Carbon Dioxide 34 H (22-30) mmol/L Anion Gap 9.3 (5-15) MEQ/L BUN 65 H (9-20) mg/dL Creatinine 2.02 H (0.66-1.25) mg/dL Estimated GFR 35.5 ML/MIN Glucose 164 H (74-106) mg/dL POC Glucometer 170 H (74 to 106) mg/dL Calcium 8.6 (8.4-10.2) mg/dL Magnesium 1.7 (1.6-2.3) mg/dL Total Bilirubin 0.40 (0.2-1.3) mg/dL AST 21 (17-59) U/L ALT 50 (0-50) U/L Alkaline Phosphatase 153 H (38-126) U/L Serum Total Protein 6.1 L (6.3-8.2) g/dL Albumin 3.2 L (3.5-5.0) g/dL Slides for Path Review YES Tracing 1 Attestation: I have reviewed this EKG and interpreted as documented below. EKG Narrative: ECG 03/21/2024: NSR at 67 bpm. LAD. LBBB. Multi-Disciplinary Progress Notes: Multi-Disciplinary Progress Notes 03/20/24 10:48 Physical Therapy Note by Selma(Louisa#[id number]),Brianna PATIENT WAS SEEN IN ROOM FOR THERAPY. PATIENT SITTING UP IN CHAIR IN ROOM WITHOUT O2. SAT 96% AT REST ON ROOM AIR. SIT TO STAND FROM CHAIR WITH PROPER HAND PLACEMENT. SLOW TO RISE WITH FLEXED TRUNK/HIPS AND KNEES AND UNSTEADY WITH STRAIGHT CANE. SWITCHED TO 2 WHEELED WA LKER AND ABLE TO ASSUME UPRIGHT POSTURE. AMBULATED 200' WITH 2 WHEELED WALKER. INITIALLY "STIFF" HIP AND KNEES WITH SHORT STEPS AND MINIMAL KNEE FLEXION. AFTER 10-20 FEET NORMALIZATION OF PATTERN THOUGH BASE OF SUPPORT STILL INCREASED AND DECREASED GAIT VELOCITY. WITH WALKER NO LOSS OF BALANCE WITH AMBULATION INCLUDING TURNS AND BACKING TO SIT. 02 SAT AFTER AMBULATION WITHOUT 02 WAS 95%. PATIENT DID NOT WANT TO GO BACK TO BED FOR EXERCISES SO PERFORMED SITTING EXERCISES INCLUDING HIP FLEXION, ADDUCTOR SQUEEZE, HIP ABDUCTION WITH KNEE FLEXED, KNEE FLEXION AND EXTENSION, ANKLE PF/DF. POSSIBLE DISCHARGE TODAY PER PATIENT - HAS NOT SPOKE TO DR YET. DISCUSSED OPTIONS FOR CONTINUED THERAPY - HHC OR OP P.T.. ALSO POSSIBLE ORTHO CONSULT FOR C/O KNEE PAIN (RIGHT >> LEFT). ALSO EDUCATED ON SAFETY AND RECOMMENDED USE OF WALKER (STANDARD DUE TO USING OUTSIDE ON ROUGH TERRAIN). PATIENT DOES NOT WANT ANY THERAPY. DOES NOT THINK ANYTHING ORTHO HAD TO OFFER WOULD HELP DUE TO "THIS KNEE BEING SHATTERED FOR 15 YEARS" - SHOULD BE NOTED PATIENT HAS FUNCTIONAL KNEE ROM AND STRENGTH BY MMT 5/5 BUT PAINFUL. ALSO STATES STRAIGHT CANE IS SAFE FOR HIM AT HOME HE CAN "PLANT IT IN THE YARD" TO HOLD HIM UP. DISCUSSED ABOVE WITH NURSE PRACTITIONER. Initialized on 03/20/24 10:48 - END OF NOTE 03/20/24 10:22 Case Management Note by Valerie Allen S/W PATIENT- HE CONTINUES TO DENY ANY NEW NEEDS AT TIME OF DC. HE CONTINUES TO DECLINE HHC. SARAH CASTELLON MET WITH PATIENT TO START THE MEDICAID PROCESS. ACO CONTINUES TO PLAN TO [facility] [employer] [facility] [facility] AT [place] FOR PATIENT. Initialized on 03/20/24 10:22 - END OF NOTE Assessment & Plan (1) Acute exacerbation of CHF (congestive heart failure) Current Visit: Yes Status: Acute Qualifiers: Heart failure type: combined systolic and diastolic Qualified Code(s): I50.43 - Acute on chronic combined systolic (congestive) and diastolic (congestive) heart failure Assessment & Plan: Approaching euvolemic state. Mild residual bilateral lower extremity edema most likely related to venous insufficiency. Will discontinue IV furosemide. Await am labs before making recommendations. Code(s): I50.9 - HEART FAILURE, UNSPECIFIED (2) CAD (coronary artery disease) of artery bypass graft Current Visit: Yes Status: Chronic Qualifiers: [place] vs. transplanted heart: [place] heart Associated angina: without angina Qualified Code(s): I25.810 - Atherosclerosis of coronary artery bypass graft(s) without angina pectoris Code(s): I25.810 - ATHEROSCLEROSIS OF CABG W/O ANGINA PECTORIS (3) Left bundle branch block (LBBB) Current Visit: Yes Status: Chronic Code(s): I44.7 - LEFT BUNDLE-BRANCH BLOCK, UNSPECIFIED (4) MOOKIE (acute kidney injury) Current Visit: Yes Status: Acute Code(s): N17.9 - ACUTE KIDNEY FAILURE, UNSPECIFIED (5) Hypertension Current Visit: No Status: Chronic Qualifiers: Hypertension type: primary hypertension Qualified Code(s): I10 - Essential (primary) hypertension Assessment & Plan: Remains moderately elevated. If MOOKIE persists in am, will add amolidipine. Code(s): I10 - ESSENTIAL (PRIMARY) HYPERTENSION - Encounter Encounter: "The entirety of this encounter was performed via Telemedicine using audio and visual " Olegario Browne MD [facility] [phone]
[2024-03-21] MEDS ORDERED: Lasix 40 MG/4 ML IV SCH (22:00)
[2024-03-22 07:05] VITALS: RESP 16
[2024-03-22 07:20] LABS: Absolute Neutrophil Ct (ANC) 7.71 x10^3/uL (1.78-5.38); Basophil (Absolute #) 0 x10^3/uL (0.01-0.08); Eosinophil % 0.1 % (0.8-7.0); Eosinophil (Absolute #) 0.01 x10^3/uL (0.04-0.54); Hematocrit 36.8 % (40.1-51.0); Hemoglobin 11.4 g/dL (13.7-17.5); IMMATURE GRAN # 0.04 x10^3u/L (0.001-0.031); IMMATURE GRAN % 0.5 % (0.001-0.429); Lymphocyte (Absolute #) 0.48 x10^3/uL (1.32-3.57); Lymphocytes % 5.6 % (21.8-53.1); Mean Cell Volume 91.8 fL (79.0-92.2); Mean Corpuscular Hemoglobin 28.4 pg (25.7-32.2); Mean Platelet Volume 11.9 fL (9.4-12.4); Monocytes % 4.6 % (5.3-12.2); Neutrophil % 89.2 % (34.0-67.9); Platelet Count 232 x10^3/uL (163-337); Red Blood Count 4.01 x10^6/uL (4.63-6.08); Red Cell Distribution Width 15.4 % (11.6-14.4); White Blood Count 8.6 x10^3/uL (4.23-9.07)
[2024-03-22 07:40] LABS: ALBUMIN 3.1 g/dL (3.5-5.0); ANION GAP 7.8 MEQ/L (5-15); BILIRUBIN,TOTAL 0.3 mg/dL (0.2-1.3); Calcium 8.3 mg/dL (8.4-10.2); Creatinine 1 2.02 mg/dL (0.66-1.25); EST GLOMERULAR FILTRATION RATE 35.5 ML/MIN; Potassium 4.2 mmol/L (3.5-5.1); Total Protein 6.1 g/dL (6.3-8.2)
[2024-03-22 07:57] LABS: Slide Review 1 YES
[2024-03-22] MEDS: HUMALOG SQ SCH (08:23)
[2024-03-22 11:50] VITALS: BP 189/87; PULSE 68; TEMP 97.9; O2SAT 97
--- NOTE | 2024-03-22 11:52 | PCM.DS ---
Discharge Summary Date of Admission: 03/16/24 12:40 Date of Discharge: 03/22/24 Admitting Physician: TYRON FOWLER MD Consults: Consults on Case 03/15/24 16:24 [facility] Referral ONCE 03/16/24 12:40 Consult Cardiology ROUTINE Primary Care Provider: NICCI CLAROS Allergies Allergies gabapentin Adverse Reaction (Verified 03/15/24 22:01) "got kind of loopy" Hospital Summary - Hospital Course Hospital Course: is a 68 year old male with a history of COPD (not recently on home o xygen), congestive heart failure, CAD (s/p CABG x 2, and follows with Dr. Taylor), hypertension, DM, and hyperlipidemia. He presented in the ER on 03/15/24 with a 2 to 3 days history of progressively worsening shortness of breath. Prior to arrival he was having some left-sided chest discomfort/pain mild to moderate which improved and route to the ER. Troponins were negative. Patient oxygen saturation was in low 90s on admission, given DuoNeb, placed on 3 L oxygen and improved to 94%. CXR showing right new diffuse hazy interstitial alveolar opacities and cardiomegaly. Patient admitted with Sepsis secondary to pneumonia, MOOKIE, and CHF exacerbation. According to assistant casino shift manager staff he appears to have sleep apnea and would benefit from an OP sleep study which has been ordered. Pt received IP treatment with Rocephin, azithromycin, steroids, DuoNebs, and lasix. Cardiology consulted, echo with EF at 33%, recommended adding BB and torsemide. Cardiology following patient, creat remains elevated at 2.02 but stable. WBC normal. Dyspnea and BLE edema much improved. Patient at baseline oxygen of 2L PRN. Patient requesting discharge. Will continue to hold Losartan until creat is improved. Advised patient to follow up Wednesday with Cardiology. Will scheduled with Nephrology this week as well. He will continue on oral lasix 40mg per day. Patient to continue prednisone/cefpodoxime for his pneumonia. Will need labs Wednesday to recheck creat. Discharge Note New Diagnosis: Pneumonia/ CHF exacerbation New Medications: Lasix dosing 40mg daily, doxycycline/prednisone Follow Up: PCP/Cards/Nephrology Latest Assessment & Plan (1) Sepsis Current Visit: Yes Status: Acute Qualifiers: Severe sepsis acute organ dysfunction type: acute respiratory failure Assessment & Plan: -secondary to pneumonia - classified with criteria of RR>20,HR > 90, known source of infection - pneumonia, MOOKIE -- Lactic acid on admission 2.6 repeat 3.6- can also be elevated d/t CHF- no IVF gave d/t CHF exacerbation - Lactic acid 03/16 1.5- resolved -no longer meets criteria (2) Pneumonia Current Visit: Yes Status: Acute Assessment & Plan: -- CXR 03/15 Portable apical lordotic chest less inflated with new diffuse right lung hazy interstitial alveolar opacities. Cardiomegaly obscures left lung base. No consolidation/large effusion. Bony thorax intact again with osteopenia and degenerative changes. 03/20: -WBC WNL -Dyspnea and cough have improved, still some yellow sputum -continue Rocephin, dc -azithromycin , steroids-change to prednisone, duonebs -Supplemental oxygen with goal > 92% - now at baseline 2L 03/21: -Lungs clear - pt at baseline oxygen of 2L PRN -continue prednisone/rocephin 03/22 -continue prednisone - oral abx cefpodoxime Code(s): J18.9 - PNEUMONIA, UNSPECIFIED ORGANISM (3) MOOKIE (acute kidney injury) Current Visit: Yes Status: Acute Assessment & Plan: -baseline around 1.2, now at 2.02 -IVF contraindicated due to CHF -Patient receiving lasix 80mg TID for CHF exacerbation - per cardiology recs - will decrease today to 40mg BID -Avoid nephrotoxic medications such as JAZZY/ARB/NSAID -Losartan to resume once MOOKIE resolved, continue to hold for now 03/22: -Hold losartan until follow up with cards/nephrology -follow up this week with cards/nephrology/pcp for repeat lab work Code(s): N17.9 - ACUTE KIDNEY FAILURE, UNSPECIFIED (4) Acute exacerbation of CHF (congestive heart failure) Current Visit: Yes Status: Acute Qualifiers: Heart failure type: combined systolic and diastolic Qualified Code(s): I50.43 - Acute on chronic combined systolic (congestive) and diastolic (congestive) heart failure Assessment & Plan: -- Echo: EF 33% 1. Severely dilated left atrium. Mildly dilated right atrium and right ventricle. Normal left ventricular chamber size. 2. Moderate concentric left ventricular hypertrophy. 3. Moderately depressed left ventricular systolic function due to moderate global hypokinesis with an estimated EF 30-35%. Abnormal motion of the interventricular septum due to LBBB. 4. Moderate diastolic dysfunction. 5. Mildly depressed right ventricular systolic function. 6. Moderate aortic sclerosis without stenosis. 7. Doppler: Moderate tricuspid regurgitation; mild mitral and pulmonic regurgitation. 8. Moderate pulmonary hypertension with an estimated PA systolic pressure 53 mmHg. 9. Mildly elevated right atrial pressure. 10. No pericardial effusion 03/20: -Cardiology following, recommend increasing lasix to 80mg tid - -Cardiology consulted with recs for BB and torsemide on discharge, losartan when kidney function improves - will follow up as OP -[place] -at baseline oxygen of 2L 03/21: -BLE edema improved -Effective diuresis with -5078 in 24 hours/6.82 lbs lost - will scale back lasix to 40mg BID as MOOKIE worsening 03/22: -Continue PO lasix 40mg daily - follow closely with cardiology Code(s): I50.9 - HEART FAILURE, UNSPECIFIED (5) SOB (shortness of breath) Current Visit: No Status: Acute Onset Date: ~10/06/18 Assessment & Plan: -multifocal with CHF/pneumonia -Supplemental oxygen with goal > 92% -Dyspnea improved, on baseline oxygen of 2L -prn Code(s): R06.02 - SHORTNESS OF BREATH (6) Obstructive sleep apnea Current Visit: Yes Status: Acute Assessment & Plan: -OP sleep study ordered Code(s): G47.33 - OBSTRUCTIVE SLEEP APNEA (ADULT) (PEDIATRIC) (7) HLD (hyperlipidemia) Current Visit: Yes Status: Acute Assessment & Plan: -continue zocor/zetia Code(s): E78.5 - HYPERLIPIDEMIA, UNSPECIFIED (8) Obesity (BMI 30.0-34.9) Current Visit: Yes Status: Acute Assessment & Plan: - Advised ADA diet ad exercise control per cardiology recommendations Code(s): E66.9 - OBESITY, UNSPECIFIED (9) DM w/o complication type II Current Visit: No Status: Chronic Assessment & Plan: - accuchecks ac/HS - Humalog S/S - changed to high dosing -elevated blood glucose levels secondary to steroids- improving - Carb consistent diet 03/22: -continue home medication regimen, check BS often I spent 35 minutes [id number] with the patient on the day of discharge performing discharge exam, discussing hospital stay and discharge instructions with patient and caregivers, preparation of discharge records, prescriptions & referral forms and addressing any questions/concerns the patient had as documented above. - Vitals & Intake/Output Vital Signs: Vital Signs Temperature 96.8 F 03/22/24 07:00 Pulse Rate 78 03/22/24 07:25 Respiratory Rate 16 03/22/24 07:25 Blood Pressure 173/84 03/22/24 07:00 O2 Sat by Pulse Oximetry 93 L 03/22/24 07:25 Intake & Output: Intake & Output 03/19/24 03/20/24 03/21/24 03/22/24 11:59 11:59 11:59 11:59 Intake Total 1620 1152 1700 1080 Output Total 4610 3750 5150 2900 Balance -4180 -4844 -6301 -5540 Weight 109.9 kg 109.6 kg 106.5 kg 105.3 kg - Lab Result Diagrams: 03/22/24 07:13 03/22/24 07:13 Lab Results-Last 24 Hrs: Lab Results-Last 24 Hours 03/21/24 03/21/24 03/22/24 Range/Units 16:03 20:59 06:45 WBC (4.23-9.07) x10^3/uL RBC (4.63-6.08) x10^6/uL Hgb (13.7-17.5) g/dL Hct (40.1-51.0) % MCV (79.0-92.2) fL MCH (25.7-32.2) pg MCHC (32.3-36.5) g/dL RDW (11.6-14.4) % Plt Count (163-337) x10^3/uL MPV (9.4-12.4) fL Gran % (34.0-67.9) % Immature Gran % (Auto) (0.001-0.429) % Nucleat RBC Rel Count (0.00-0.2) % Eos # (Auto) (0.04-0.54) x10^3/uL Immature Gran # (Auto) (0.001-0.031) x10^3u/L Absolute Lymphs (auto) (1.32-3.57) x10^3/uL Absolute Monos (auto) (0.30-0.82) x10^3/uL Absolute Nucleated RBC (0.00-0.012) x10^3u/L Lymphocytes % (21.8-53.1) % Monocytes % (5.3-12.2) % Eosinophils % (0.8-7.0) % Basophils % (0.2-1.2) % Absolute Granulocytes (1.78-5.38) x10^3/uL Basophils # (0.01-0.08) x10^3/uL Sodium (135-145) mmol/L Potassium (3.5-5.1) mmol/L Chloride (98-107) mmol/L Carbon Dioxide (22-30) mmol/L Anion Gap (5-15) MEQ/L BUN (9-20) mg/dL Creatinine (0.66-1.25) mg/dL Estimated GFR ML/MIN Glucose (74-106) mg/dL POC Glucometer 228 H 271 H 307 H (74 to 106) mg/dL Calcium (8.4-10.2) mg/dL Total Bilirubin (0.2-1.3) mg/dL AST (17-59) U/L ALT (0-50) U/L Alkaline Phosphatase (38-126) U/L Serum Total Protein (6.3-8.2) g/dL Albumin (3.5-5.0) g/dL Slides for Path Review 03/22/24 03/22/24 03/22/24 Range/Units 07:13 07:13 11:26 WBC 8.6 (4.23-9.07) x10^3/uL RBC 4.01 L (4.63-6.08) x10^6/uL Hgb 11.4 L (13.7-17.5) g/dL Hct 36.8 L (40.1-51.0) % MCV 91.8 (79.0-92.2) fL MCH 28.4 (25.7-32.2) pg MCHC 31.0 L (32.3-36.5) g/dL RDW 15.4 H (11.6-14.4) % Plt Count 232 (163-337) x10^3/uL MPV 11.9 (9.4-12.4) fL Gran % 89.2 H (34.0-67.9) % Immature Gran % (Auto) 0.5 H (0.001-0.429) % Nucleat RBC Rel Count 0.0 (0.00-0.2) % Eos # (Auto) 0.01 L (0.04-0.54) x10^3/uL Immature Gran # (Auto) 0.04 H (0.001-0.031) x10^3u/L Absolute Lymphs (auto) 0.48 L (1.32-3.57) x10^3/uL Absolute Monos (auto) 0.40 (0.30-0.82) x10^3/uL Absolute Nucleated RBC 0.00 (0.00-0.012) x10^3u/L Lymphocytes % 5.6 L (21.8-53.1) % Monocytes % 4.6 L (5.3-12.2) % Eosinophils % 0.1 L (0.8-7.0) % Basophils % 0.0 L (0.2-1.2) % Absolute Granulocytes 7.71 H (1.78-5.38) x10^3/uL Basophils # 0 L (0.01-0.08) x10^3/uL Sodium 139 (135-145) mmol/L Potassium 4.2 (3.5-5.1) mmol/L Chloride 102 (98-107) mmol/L Carbon Dioxide 34 H (22-30) mmol/L Anion Gap 7.8 (5-15) MEQ/L BUN 69 H (9-20) mg/dL Creatinine 2.02 H (0.66-1.25) mg/dL Estimated GFR 35.5 ML/MIN Glucose 298 H (74-106) mg/dL POC Glucometer 212 H (74 to 106) mg/dL Calcium 8.3 L (8.4-10.2) mg/dL Total Bilirubin 0.30 (0.2-1.3) mg/dL AST 22 (17-59) U/L ALT 40 (0-50) U/L Alkaline Phosphatase 151 H (38-126) U/L Serum Total Protein 6.1 L (6.3-8.2) g/dL Albumin 3.1 L (3.5-5.0) g/dL Slides for Path Review YES Micro Results-Entire Visit: Microbiology 03/15/24 17:08 Blood Culture - Final Blood 03/15/24 16:58 Blood Culture - Final Blood 03/15/24 17:35 Urine Culture - Final Urine, Catheterized NO GROWTH Accuchecks Date 03/22/24 Date 03/21/24 Date 03/21/24 Time 20:45 - Procedures and Test Procedures and Tests throughout Hospitalization: Therapy Orders & Screens 03/15/24 21:30 Oxygen Nasal Cannula 3 lpm Comment: Respiratory Therapy Consult ONCE Comment: Reason For Exam: 03/15/24 22:00 PT Screen per Nursing Assess ONCE Comment: Protocol Order Physician Instructions: Greater than 3 points order PT Admission Screenin Reason For Exam: Triggered on Admission Diagnosis: Acute CHF exacerbation, pneumonia, respiratory failure, acute on chronic re Open Wound/Cellutlitis/Pressure Ulcers: Yes Acute Fx/ORIF/Change in wt bearing status: No Severe MUSCULOSKELETAL pain: No ADL Dysfunction: No Acute CVA w/Hemiparesis/Hemiplegia: No Decreased Functional Mobility/Strength: Yes Sprain/Strain: No Acute Post-op Mobility Dysfunction: No Total Points: 6 RT Screen per Nursing Assess ONCE Comment: Protocol Order Physician Instructions: Greater than 3 points order RT Admission Screen Reason For Exam: Triggered on Admission Diagnosis: Acute CHF exacerbation, pneumonia, respiratory failure, acute on chronic re Diagnosis: Acute CHF exacerbation, pneumonia, respiratory failure, acute on chronic re Pneumonia: Yes Home O2: Yes: doesn't use Asthma: No CHF: Yes Home CPAP/BIPAP: No Home Nebs/MDI: No Total Points: 11 ST Screen per Nursing Assess ONCE Comment: Protocol Order Physician Instructions: Greater than [address] Admission Screening Reason For Exam: Triggered on Admission Diagnosis: Acute CHF exacerbation, pneumonia, respiratory failure, acute on chronic re CVA/Dyshpagia/Aphasia: No Cognitive Deficits: No Dehydration/Nutrition Deficit: No Reflux: No Oral-Motor Difficulties: No Pneumonia: Yes Long Term Resident: No Total Points: 5 03/15/24 22:37 PT Eval & Treat (MD Order) ONCE Reason for Eval:: assess transfers and mobility and oxygen requirements while ambulatory Diagnosis: Acute CHF exacerbation, pneumonia, respiratory failure, acute on chronic re 03/15/24 22:54 EKG REPEAT IN AM Comment: Diagnosis: Acute CHF exacerbation, pneumonia, respiratory failure, acute on chronic re 03/15/24 23:33 Oxygen Oxymask LPM 3 lpm Comment: Diagnosis: Acute CHF exacerbation, pneumonia, respiratory failure, acute on chronic re 03/21/24 20:58 EKG ROUTINE Comment: Diagnosis: CHF, PNEUMONIA, MOOKIE Discharge Exam General Appearance: no apparent distress Neurologic Exam: alert, oriented x 3, cooperative Eye Exam: PERRL Ears, Nose, Throat Exam: normal ENT inspection Neck Exam: normal inspection Respiratory Exam: normal breath sounds, lungs clear Cardiovascular Exam: regular rate/rhythm, normal heart sounds Gastrointestinal/Abdomen Exam: soft, normal bowel sounds Male Genitalia Exam: deferred Rectal Exam: deferred Back Exam: normal inspection Extremity Exam: inflammation, swelling (BLE +1) Skin Exam: normal color Final Diagnosis/Problem List - Final Discharge Diagnosis/Problem (1) Sepsis Current Visit: Yes Status: Resolved (2) Pneumonia Current Visit: Yes Status: Acute Code(s): J18.9 - PNEUMONIA, UNSPECIFIED ORGANISM (3) MOOKIE (acute kidney injury) Current Visit: Yes Status: Acute Code(s): N17.9 - ACUTE KIDNEY FAILURE, UNSPECIFIED (4) Acute exacerbation of CHF (congestive heart failure) Current Visit: Yes Status: Acute Code(s): I50.9 - HEART FAILURE, UNSPECIFIED (5) SOB (shortness of breath) Current Visit: No Status: Resolved Onset Date: ~10/06/18 Code(s): R06.02 - SHORTNESS OF BREATH (6) Obstructive sleep apnea Current Visit: Yes Status: Chronic Code(s): G47.33 - OBSTRUCTIVE SLEEP APNEA (ADULT) (PEDIATRIC) (7) HLD (hyperlipidemia) Current Visit: Yes Status: Chronic Code(s): E78.5 - HYPERLIPIDEMIA, UNSPECIFIED (8) Obesity (BMI 30.0-34.9) Current Visit: Yes Status: Chronic Code(s): E66.9 - OBESITY, UNSPECIFIED (9) DM w/o complication type II Current Visit: No Status: Chronic Code(s): E11.9 - TYPE 2 DIABETES MELLITUS WITHOUT COMPLICATIONS - Discharge Disposition: Home, Self-Care Condition: Stable Prescriptions: New Potassium Chloride 20 meq PO DAILY 30 Days #30 tablet Doxycycline Hyclate 100 mg [Vibramycin 100 MG] 100 mg PO BID 7 Days #14 tab Prednisone 20 mg [Deltasone 20 mg] 20 mg PO BID 5 Days #10 tablet Prednisone 20 mg [Deltasone 20 mg] 20 mg PO BID tablet Metoprolol Succinate 25 mg Xl* [Toprol-Xl 25MG Tablets] 25 mg PO DAILY 30 Days #30 tablet Continue Ezetimibe 10 mg PO DAILY Clopidogrel Bisulfate [PLAVIX Tablet] 75 mg PO DAILY Allopurinol 100 mg [Zyloprim 100 mg] 200 mg PO DAILY Aspirin EC 81 mg [Ecotrin 81 mg] 81 mg PO DAILY Metformin HCl [Metformin HCl ER] 1,000 mg PO BID Isosorbide Mononitrate 30 mg PO DAILY #52 tablet Atorvastatin Calcium 1 tab PO DAILY PANTOPRAZOLE 40 mg Tablet [Protonix 40MG Tablet] 1 tab PO BID Discontinued Losartan Potassium 50 mg [Cozaar 50 MG] 50 mg PO DAILY Additional Instructions: YOU CAN REACH THE [employer] AT [phone] ext [phone] IF YOU NEED ASSISTANCE WITH GETTING MEDICAID SET UP, MEDS, FOOD, ANY NEEDS. Hold losartan until follow up with cardiology and labs rechecked Follow up with: HECTOR HALL PA [NON-STAFF PHY W/O PRIVILEGES] - 03/23/24 9:30 am DMITRY DHALIWAL NP [NON-STAFF PHY W/O PRIVILEGES] - 03/27/24 10:30 am CALLIE CELIS [CONSULTING PHYSICIAN] - 1 Day (Please have appt this week)
--- NOTE | 2024-03-22 12:29 | PCM.NOTE ---
Date and Time: 03/22/24 1206 Subjective Assessment: Feels much better. Ready to go home. Spoke with director case. They have assisted patient to transfer his [place] Medicaid to [place] Medicaid. It will take 6-8 weeks. [facility] will help to pay for his medications. Exam General:: alert and oriented x 4, no acute distress HEENT: EOMI Cardiovascular: Regular Rate & Rhythm Respiratory:: normal excursion Extremity Exam: edema (Trace mcc up to knees bilaterally.) Neurologic: normal mood/affect Objective Data Vital Signs: Vital Signs - 24 hr Temp Pulse Resp BP Pulse Ox 03/22/24 11:00 97.9 F 68 16 189/87 97 03/22/24 07:25 78 16 93 L 03/22/24 07:00 96.8 F 78 16 173/84 93 L 03/22/24 03:00 69 18 95 03/21/24 23:00 18 03/21/24 19:35 70 18 97 03/21/24 19:00 97.9 F 71 18 170/74 99 03/21/24 15:00 97.5 F 67 18 168/87 98 Pain Assessment - Last Documented Pain Intensity 0 Intake and Output: Intake & Output 03/20/24 03/21/24 03/22/24 03/23/24 11:59 11:59 11:59 11:59 Intake Total 1152 1700 1200 Output Total 3750 5150 3800 Balance -7978 -8500 -2600 Weight 109.6 kg 106.5 kg 105.3 kg During this hospitalization, weight decreased from 115.5 kgs to 105.3 kg. Loss of 10.2 kg (22.4 lbs) LAB: I have reviewed the Labs in [employer]. Lab Results: Lab Results-Last 24 Hours 03/21/24 03/21/24 03/22/24 Range/Units 16:03 20:59 06:45 WBC (4.23-9.07) x10^3/uL RBC (4.63-6.08) x10^6/uL Hgb (13.7-17.5) g/dL Hct (40.1-51.0) % MCV (79.0-92.2) fL MCH (25.7-32.2) pg MCHC (32.3-36.5) g/dL RDW (11.6-14.4) % Plt Count (163-337) x10^3/uL MPV (9.4-12.4) fL Gran % (34.0-67.9) % Immature Gran % (Auto) (0.001-0.429) % Nucleat RBC Rel Count (0.00-0.2) % Eos # (Auto) (0.04-0.54) x10^3/uL Immature Gran # (Auto) (0.001-0.031) x10^3u/L Absolute Lymphs (auto) (1.32-3.57) x10^3/uL Absolute Monos (auto) (0.30-0.82) x10^3/uL Absolute Nucleated RBC (0.00-0.012) x10^3u/L Lymphocytes % (21.8-53.1) % Monocytes % (5.3-12.2) % Eosinophils % (0.8-7.0) % Basophils % (0.2-1.2) % Absolute Granulocytes (1.78-5.38) x10^3/uL Basophils # (0.01-0.08) x10^3/uL Sodium (135-145) mmol/L Potassium (3.5-5.1) mmol/L Chloride (98-107) mmol/L Carbon Dioxide (22-30) mmol/L Anion Gap (5-15) MEQ/L BUN (9-20) mg/dL Creatinine (0.66-1.25) mg/dL Estimated GFR ML/MIN Glucose (74-106) mg/dL POC Glucometer 228 H 271 H 307 H (74 to 106) mg/dL Calcium (8.4-10.2) mg/dL Total Bilirubin (0.2-1.3) mg/dL AST (17-59) U/L ALT (0-50) U/L Alkaline Phosphatase (38-126) U/L Serum Total Protein (6.3-8.2) g/dL Albumin (3.5-5.0) g/dL Slides for Path Review 03/22/24 03/22/24 03/22/24 Range/Units 07:13 07:13 11:26 WBC 8.6 (4.23-9.07) x10^3/uL RBC 4.01 L (4.63-6.08) x10^6/uL Hgb 11.4 L (13.7-17.5) g/dL Hct 36.8 L (40.1-51.0) % MCV 91.8 (79.0-92.2) fL MCH 28.4 (25.7-32.2) pg MCHC 31.0 L (32.3-36.5) g/dL RDW 15.4 H (11.6-14.4) % Plt Count 232 (163-337) x10^3/uL MPV 11.9 (9.4-12.4) fL Gran % 89.2 H (34.0-67.9) % Immature Gran % (Auto) 0.5 H (0.001-0.429) % Nucleat RBC Rel Count 0.0 (0.00-0.2) % Eos # (Auto) 0.01 L (0.04-0.54) x10^3/uL Immature Gran # (Auto) 0.04 H (0.001-0.031) x10^3u/L Absolute Lymphs (auto) 0.48 L (1.32-3.57) x10^3/uL Absolute Monos (auto) 0.40 (0.30-0.82) x10^3/uL Absolute Nucleated RBC 0.00 (0.00-0.012) x10^3u/L Lymphocytes % 5.6 L (21.8-53.1) % Monocytes % 4.6 L (5.3-12.2) % Eosinophils % 0.1 L (0.8-7.0) % Basophils % 0.0 L (0.2-1.2) % Absolute Granulocytes 7.71 H (1.78-5.38) x10^3/uL Basophils # 0 L (0.01-0.08) x10^3/uL Sodium 139 (135-145) mmol/L Potassium 4.2 (3.5-5.1) mmol/L Chloride 102 (98-107) mmol/L Carbon Dioxide 34 H (22-30) mmol/L Anion Gap 7.8 (5-15) MEQ/L BUN 69 H (9-20) mg/dL Creatinine 2.02 H (0.66-1.25) mg/dL Estimated GFR 35.5 ML/MIN Glucose 298 H (74-106) mg/dL POC Glucometer 212 H (74 to 106) mg/dL Calcium 8.3 L (8.4-10.2) mg/dL Total Bilirubin 0.30 (0.2-1.3) mg/dL AST 22 (17-59) U/L ALT 40 (0-50) U/L Alkaline Phosphatase 151 H (38-126) U/L Serum Total Protein 6.1 L (6.3-8.2) g/dL Albumin 3.1 L (3.5-5.0) g/dL Slides for Path Review YES Radiology Exams: 03/15/2024 CXR (AP): Portable apical lordotic chest less inflated with new diffuse right lung hazy interstitial alveolar opacities. Cardiomegaly obscures left lung base. No consolidation/large effusion. Bony thorax intact again with osteopenia and degenerative changes. Tracing 2 Attestation: I have reviewed this EKG and interpreted as documented below. Tracing 3 Attestation: I have reviewed this EKG and interpreted as documented below. EKG Narrative: ECG 03/21/2024: NSR at 67 bpm. LAE. LAD. LBBB. 03/16/2024: NSR at 86 bpm. LAD. LBBB. 11/19/2022: NSR qt 73 bpm. LAD. LBBB. TTE 03/16/2024 1. Severely dilated left atrium. Mildly dilated right atrium and right ventricle. Normal left ventricular chamber size. 2. Moderate concentric left ventricular hypertrophy. 3. Moderately depressed left ventricular systolic function due to moderate global hypokinesis with an estimated EF 30-35%. Abnormal motion of the interventricular septum due to intraventricular conduction delay. 4. Moderate diastolic dysfunction. 5. Mildly depressed right ventricular systolic function. 6. Moderate aortic sclerosis without stenosis. 7. Doppler: Moderate tricuspid regurgitation; mild mitral and pulmonic regurgitation. 8. Moderate pulmonary hypertension with an estimated PA systolic pressure 53 mmHg.= 9. Mildly elevated right atrial pressure. 10. No pericardial effusion. 10/28/2022 1) NO EVIDENCE OF THROMBUS IN THE LEFT VENTRICLE OR LEFT ATRIUM. 2) MODERATE LEFT VENTRICULAR DILATATION. 3) MILD DECREASE IN LEFT VENTRICULAR SYSTOLIC FUNCTION. EF 46%. 4) POSSIBLE IMPAIRED LEFT VENTRICULAR RELAXATION. 5) MODERATE LEFT ATRIAL DILATATION. 6) MILD MITRAL REGURGITATION. 7) MILD TRICUSPID REGURGITATION. 8) MODERATE PULMONARY HYPERTENSION. 9) MILD SEPTAL LEFT VENTRICULAR HYPERTROPHY. - ECHO Echo: interpreted by me (1. Severely dilated left atrium. Mildly dilated right atrium and right ventricle. Normal left ventricular chamber size. 2. Moderate concentric left ventricular hypertrophy. 3. Moderately depressed left ventricular systolic function due to moderate global hypokinesis with an estimated EF 30-35%) Assessment & Plan (1) Acute exacerbation of CHF (congestive heart failure) Current Visit: Yes Status: Acute Qualifiers: Heart failure type: combined systolic and diastolic Qualified Code(s): I50 .43 - Acute on chronic combined systolic (congestive) and diastolic (congestive) heart failure Assessment & Plan: Diuresed 22 lbs during this hospitalization. Appears euvolemic on exam. Found 10/2022 TTE report showing LVEF has decreased from 46% to 30-35%. Creatinine has increased form 1.7 to 2.0 during his hospital stay limiting GDMT. Metoprolol succinate started last week. Will increase to 50 mg by mouth daily. Start torsemide 40 mg by mouth daily. Code(s): I50.9 - HEART FAILURE, UNSPECIFIED (2) CAD (coronary artery disease) of artery bypass graft Current Visit: Yes Status: Chronic Qualifiers: [place] vs. transplanted heart: [place] heart Associated angina: without angina Qualified Code(s): I25.810 - Atherosclerosis of coronary artery bypass graft(s) without angina pectoris Assessment & Plan: LV systolic function has decreased since 10/2022. He will need outpatient evaluation for progression of his CAD by his program attendant, Dr. Zev Taylor in [facility]. He did describe a vague discomfort "that always happens when I a short of breat" was is different form his symptoms prior to CABG and PCI. Code(s): I25.810 - ATHEROSCLEROSIS OF CABG W/O ANGINA PECTORIS (3) Left bundle branch block (LBBB) Current Visit: Yes Status: Chronic Assessment & Plan: Chronic. Consider cardiac resynchronization therapy if his CHF is resistent to GDMT. Code(s): I44.7 - LEFT BUNDLE-BRANCH BLOCK, UNSPECIFIED (4) MOOKIE (acute kidney injury) Current Visit: Yes Status: Acute Assessment & Plan: At time of consultation this was felt secondary to cardiorenal syndrome with an increase from his baseline creatinine of 1.2 since December 2022. His creatinine did not improve with diuresis and withholding losartan. He may have a new ba seline creatinine. Agree with outpatient nephrology consultation. Spironolactone, ARB/ARNI, and SGLT2 inhibitor have all been held due to his renal status. Code(s): N17.9 - ACUTE KIDNEY FAILURE, UNSPECIFIED (5) Hypertension Current Visit: No Status: Chronic Qualifiers: Hypertension type: primary hypertension Qualified Code(s): I10 - Essential (primary) hypertension Assessment & Plan: Remains moderately elevated. Because of inability to advance GDMT, will start amlodipine 5 mg by mouth daily. Code(s): I10 - ESSENTIAL (PRIMARY) HYPERTENSION - Encounter Encounter: "The entirety of this encounter was performed via Telemedicine using audio and visual "
== END 2024-03-22 14:12 | disposition home or self-care (01) | DRG 871 ==
LOC: ED 16:07 → MED SURG 21:28 → OBSVTOIN 03-16 12:40
PROVIDERS: ADMIT Internal Medicine; ATTEND Internal Medicine
DX: A41.9 Sepsis, unspecified organism (principal); I50.43 Acute on chronic combined systolic (congestive) and diastolic (congestive) heart failure; J18.9 Pneumonia, unspecified organism; N17.9 Acute kidney failure, unspecified; Z59.811 Housing instability, housed, with risk of homelessness; Z59.41 Food insecurity; I11.0 Hypertensive heart disease with heart failure; R06.02 Shortness of breath; G47.33 Obstructive sleep apnea (adult) (pediatric); E78.5 Hyperlipidemia, unspecified; E66.9 Obesity, unspecified; E11.9 Type 2 diabetes mellitus without complications; I25.10 Atherosclerotic heart disease of native coronary artery without angina pectoris; R60.0 Localized edema; I25.2 Old myocardial infarction; Z95.0 Presence of cardiac pacemaker; Z79.899 Other long term (current) drug therapy; Z79.01 Long term (current) use of anticoagulants
CPT/HCPCS: 36000; 36415; 36600; 71045; 80048; 80053; 80061; 81001; 82375; 82803; 82947; 83036; 83605; 83721; 83735; 83880; 84132; 84145; 84484; 85025; 85027; 87040; 87086; 93005; 93041; 93268; 93306; 94640; 94760; 94762; 96365; 96367; 96374; 96375; 97110; 97161; 97530; 99285; G0378; Q3014; J0456; J0696; J1650; J1817; J1940; J2270; J2405; J2919; A9270-GY

== ENCOUNTER 2024-03-31 19:24 | Observation (INO) | payer MEDICARE ==
[2024-03-31 19:47] LABS: Absolute Neutrophil Ct (ANC) 5.47 x10^3/uL (1.78-5.38); BASOPHIL % 0.3 % (0.2-1.2); Basophil (Absolute #) 0.02 x10^3/uL (0.01-0.08); Eosinophil % 1.6 % (0.8-7.0); Eosinophil (Absolute #) 0.11 x10^3/uL (0.04-0.54); Hematocrit 35.1 % (40.1-51.0); Hemoglobin 10.6 g/dL (13.7-17.5); IMMATURE GRAN # 0.07 x10^3u/L (0.001-0.031); Lymphocyte (Absolute #) 0.88 x10^3/uL (1.32-3.57); Lymphocytes % 12.7 % (21.8-53.1); Mean Cell Volume 92.6 fL (79.0-92.2); Mean Corpuscular Hgb Concent. 30.2 g/dL (32.3-36.5); Mean Platelet Volume 12.4 fL (9.4-12.4); Monocytes % 5.8 % (5.3-12.2); Neutrophil % 78.6 % (34.0-67.9); Platelet Count 179 x10^3/uL (163-337); Red Blood Count 3.79 x10^6/uL (4.63-6.08); Red Cell Distribution Width 15.3 % (11.6-14.4)
[2024-03-31] MEDS: Sodium Chloride 0.9% 1000 ML 1,000 ML IV STA ×2 (19:48→21:04)
[2024-03-31] MEDS ORDERED: Sodium Chloride 0.9% 1000 ML 1,000 ML ONE ×2 (19:48→20:51)
[2024-03-31 20:02] LABS: ALBUMIN 2.8 g/dL (3.5-5.0); ALKALINE PHOSPHATASE 98 U/L (38-126); ANION GAP 10.4 MEQ/L (5-15); BLOOD UREA NITROGEN 76 mg/dL (9-20); CHLORIDE 113 mmol/L (98-107); Carbon Dioxide 23 mmol/L (22-30); EST GLOMERULAR FILTRATION RATE 43.6 ML/MIN; ETHYL ALCOHOL < 10 mg/dL (0-10); Glucose 123 mg/dL (74-106); INR 0.95 (0.8-3.0); MAGNESIUM 1.4 mg/dL (1.6-2.3); PROTIME 10.4 SECONDS (9.4-12.5); PTT 23.8 SECONDS (25.1-36.5); Potassium 4.7 mmol/L (3.5-5.1); SGOT/AST 23 U/L (17-59); SGPT/ALT 23 U/L (0-50); SODIUM 142 mmol/L (135-145); Total Protein 5.3 g/dL (6.3-8.2)
--- NOTE | 2024-03-31 20:20 | ERPHSYRPT ---
- History of Present Illness Source: patient, other ( friend) Exam Limitations: other ( poor story) Patient Subjective Stated Complaint: pt states he was out fishing for a couple hrs and when he was putting his equipment back in the car he started feeling weak. pt states "I think I got over heated." Triage Nursing Assessment: pt drove himself here and ambulated self to w heelchair for car and wheeled to ED by staff, pt alert and oriented x3, skin pwd, pt c/o weakness, pt denies any new acute pain or dizziness. pt afebrile. vitals wnl. Physician History: Patient is a 69-year-old male who states that he got too hot while fishing today. Patient stated that he developed a headache and some nausea and just did not feel good. He denies any chest pain, dyspnea, focal weakness, fever, diarrhea, abdominal pain, visual impairment, and cough/coryza past medical history includes diabetes mellitus, hypertension, CAD-CABG, 1 pack a day smoking until 1.5 years ago, melena, hematochezia but [place] is denied. patient alert and orient x 3 upon arrival without any focal weakness. Timing/Duration: today Severity: mild Associated Symptoms: nausea, headaches Allergies/Adverse Reactions: gabapentin Adverse Reaction (Verified 03/31/24 19:26) "got kind of loopy" Home Medications: Ezetimibe 10 mg PO DAILY 04/26/20 [History] Clopidogrel Bisulfate [PLAVIX Tablet] 75 mg PO DAILY 02/10/21 [History] Allopurinol 100 mg [Zyloprim 100 mg] 200 mg PO DAILY 06/06/21 [History] Aspirin EC 81 mg [Ecotrin 81 mg] 81 mg PO DAILY 10/23/22 [History] Metformin HCl [Metformin HCl ER] 1,000 mg PO BID 11/05/22 [History] Atorvastatin Calcium 1 tab PO DAILY 03/15/24 [History] PANTOPRAZOLE 40 mg Tablet [Protonix 40MG Tablet] 1 tab PO BID 03/15/24 [History] Hx Tetanus, Diphtheria Vaccination/Date Given: Yes Hx Influenza Vaccination/Date Given: No Hx Pneumococcal Vaccination/Date Given: Yes Immunizations Up to Date: No Travel Risk - International Travel Have you traveled outside of the country in past 3 weeks: No - Emerging Infectious Disease Are you exhibiting symptoms associated with any current EIDs: No Symptoms: Shortness of Breath - Review of Systems Constitutional: No Symptoms, Fatigue, Weakness Eyes: No Symptoms Ears, Nose, & Throat: No Symptoms Respiratory: No Symptoms Cardiac: No Symptoms Abdominal/Gastrointestinal: No Symptoms, Nausea Genitourinary Symptoms: No Symptoms Musculoskeletal: No Symptoms Skin: No Symptoms Neurological: No Symptoms Psychological: No Symptoms Endocrine: No Symptoms Hematologic/Lymphatic: No Symptoms Immunological/Allergic: No Symptoms - Past Medical History Pertinent Past Medical History: Yes Neurological History: No Pertinent History ENT History: No Pertinent History Cardiac History: Angina, Congestive Heart Failure, Coronary Artery Disease, High Cholesterol, Hypertension, Myocardial Infarction ([place]) Respiratory History: COPD Endocrine Medical History: Diabetes Type II Musculoskeletal History: Osteoarthritis GI Medical History: No Pertinent History History: No Pertinent History Psycho-Social History: No Pertinent History Male Reproductive Disorders: No Pertinent History Other Medical History: fractured ribs, anemia, gout - Past Surgical History Past Surgical History: Yes Neuro Surgical History: No Pertinent History Cardiac: CABG, Cardiac Catheterization, Cardiac Stent, Other Respiratory: Chest Surgery Gastrointestinal: No Pertinent History Genitourinary: No Pertinent History Musculoskeletal: Orthopedic Surgery Male Surgical History: No Pertinent History Other Surgical History: umbilical, triple bypass, L shoulder Significant Family History: no pertinent family hx - Social History Smoking Status: Former smoker How long have you smoked: 53 Exposure to second hand smoke: No Drug Use: none Patient Lives Alone: No - Social Determinants of Health Will the patient participate in the screening: Yes Do you worry about a steady place to live?: No Do you have any problems with any of the following?: No known problems In the past 12 months,have you had to go without utilities?: No Transportation Issues: No Has anyone in your support network made you feel unsafe?: No Have you or anyone in your house had to go without enough: No - Nursing Vital Signs Nursing Vital Signs: Initial Vital Signs Temperature 98.5 F 03/31/24 19:27 Pulse Rate 84 03/31/24 19:27 Respiratory Rate 12 03/31/24 19:27 Blood Pressure 138/99 03/31/24 19:27 O2 Sat by Pulse Oximetry 97 03/31/24 19:27 Pain Scale Pain Intensity 5 Hypertensive - Physical Exam General Appearance: no apparent distress Eye Exam: PERRL/EOMI, eyes nml inspection Ears, Nose, Throat Exam: normal ENT inspection, TMs normal, pharynx normal, moist mucous membranes Neck Exam: normal inspection, non-tender, supple, full range of motion, No meningismus, No mass, No Brudzinski, No Kernig's Respiratory Exam: normal breath sounds, lungs clear, airway intact Cardiovascular Exam: regular rate/rhythm, murmur ( 3 or 6 systolic ejection murmur), capillary refill <2 sec Gastrointestinal/Abdomen Exam: soft, normal bowel sounds Back Exam: normal inspection, normal range of motion Extremity Exam: normal inspection, normal range of motion Neurologic Exam: alert, oriented x 3, cooperative, capacity planning manager II-XII nml as tested, normal mood/affect, nml cerebellar function, nml station & gait, sensation nml Skin Exam: normal color, warm, dry Lymphatic Exam: No adenopathy SpO2 Interpretation: normal SpO2: 97 O2 Delivery: Room Air - Course Nursing assessment & vital signs reviewed: Yes EKG Interpreted by Me: RATE ( normal sinus rhythm/rate 84/left bundle branch block/prolonged QTc/interpreted contemporaneously per ER physician.) - CT Exams Head CT Interpretation: Tele-radiologist Report ( Nothing acute, 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) Ordered Tests: Active Orders 24 hr Category Date Time Status Bedrest with BRP/BSC ROUTINE Activity 03/31/24 23:31 Ordered Call Admit Doctor for Orders ON ADMISSION Care 03/31/24 23:30 Ordered Code Status Order ROUTINE Care 03/31/24 23:30 Ordered EKG-ER Only STAT Care 03/31/24 19:32 Active Fall Protocol ROUTINE Care 03/31/24 23:31 Ordered IV Insertion STAT Care 03/31/24 19:[address] in Observation ROUTINE Care 03/31/24 23:30 Ordered Telemetry q6h Care 03/31/24 23:31 Ordered Consistent Carbohydrate Diet 1800 Calorie Diet 04/01/24 Breakfast Ordered CHEST 1 VIEW (PORTABLE) Stat Exams 03/31/24 23:19 Taken HEAD WITHOUT CONTRAST [CT] Stat Exams 03/31/24 19:56 Completed BMP Stat Lab 03/31/24 22:05 Completed CBC W DIFF Stat Lab 03/31/24 19:40 Completed CMP Stat Lab 03/31/24 19:40 Completed ETHYL ALCOHOL Stat Lab 03/31/24 19:40 Completed Lactic Acid Stat Lab 03/31/24 19:42 Completed Lactic Acid Stat Lab 03/31/24 21:48 Completed MAGNESIUM Stat Lab 03/31/24 19:40 Completed PROTIME WITH INR Stat Lab 03/31/24 19:40 Completed PTT Stat Lab 03/31/24 19:40 Completed TROPONIN Q4H Lab 03/31/24 19:40 Completed TROPONIN Q4H Lab 03/31/24 22:05 Completed TROPONIN Q4H Lab 04/01/24 03:45 Ordered UA W/RFX UR CULTURE Stat Lab 03/31/24 21:07 Completed Transfer Order Routine Transfer 03/31/24 Ordered Medication Summary Discontinued Medications Generic Name Dose Route Start Last Admin Trade Name Freq PRN Reason Stop Dose Admin Sodium Chloride 1,000 mls @ 999 mls/hr 03/31/24 19:34 03/31/24 20:51 Sodium Chloride 0.9% 1000 Ml IV 03/31/24 20:34 Infused .Q1H1M STA Infusion Sodium Chloride Confirm 03/31/24 19:48 Sodium Chloride 0.9% 1000 Ml Administered 03/31/24 19:49 Dose 1,000 mls @ ud .ROUTE .STK-MED ONE Sodium Chloride 1,000 mls @ 999 mls/hr 03/31/24 20:47 03/31/24 21:58 Sodium Chloride 0.9% 1000 Ml IV 03/31/24 21:47 Infused .Q1H1M STA Infusion Sodium Chloride Confirm 03/31/24 20:51 Sodium Chloride 0.9% 1000 Ml Administered 03/31/24 20:52 Dose 1,000 mls @ ud .ROUTE .STK-MED ONE Lab/Rad Data: Laboratory Result Diagrams 03/31/24 19:40 03/31/24 22:05 Laboratory Results 03/31/24 03/31/24 03/31/24 Range/Units 22:05 22:05 21:48 WBC (4.23-9.07) x10^3/uL RBC (4.63-6.08) x10^6/uL Hgb (13.7-17.5) g/dL Hct (40.1-51.0) % MCV (79.0-92.2) fL MCH (25.7-32.2) pg MCHC (32.3-36.5) g/dL RDW (11.6-14.4) % Plt Count (163-337) x10^3/uL MPV (9.4-12.4) fL Gran % (34.0-67.9) % Immature Gran % (Auto) (0.001-0.429) % Nucleat RBC Rel Count (0.00-0.2) % Eos # (Auto) (0.04-0.54) x10^3/uL Immature Gran # (Auto) (0.001-0.031) x10^3u/L Absolute Lymphs (auto) (1.32-3.57) x10^3/uL Absolute Monos (auto) (0.30-0.82) x10^3/uL Absolute Nucleated RBC (0.00-0.012) x10^3u/L Lymphocytes % (21.8-53.1) % Monocytes % (5.3-12.2) % Eosinophils % (0.8-7.0) % Basophils % (0.2-1.2) % Absolute Granulocytes (1.78-5.38) x10^3/uL Basophils # (0.01-0.08) x10^3/uL PT (9.4-12.5) SECONDS INR (0.8-3.0) APTT (25.1-36.5) SECONDS Sodium 142 (135-145) mmol/L Potassium 4.0 (3.5-5.1) mmol/L Chloride 115 H (98-107) mmol/L Carbon Dioxide 23 (22-30) mmol/L Anion Gap 7.1 (5-15) MEQ/L BUN 68 H (9-20) mg/dL Creatinine 1.75 H (0.66-1.25) mg/dL Estimated GFR 42.2 ML/MIN Glucose 114 H (74-106) mg/dL Lactic Acid 0.8 (0.4-2.0) Calcium 8.2 L (8.4-10.2) mg/dL Magnesium (1.6-2.3) mg/dL Total Bilirubin (0.2-1.3) mg/dL AST (17-59) U/L ALT (0-50) U/L Alkaline Phosphatase (38-126) U/L Troponin I 0.037 H* (0.000-0.033) ng/mL Serum Total Protein (6.3-8.2) g/dL Albumin (3.5-5.0) g/dL Urine Color (Yellow) Urine Appearance (Clear) Urine pH (4.6-8.0) Ur Specific Conway (1.005-1.030) Urine Protein (Negative) Urine Glucose (UA) (Negative) mg/dL Urine Ketones (Negative) Urine Blood (Negative) Urine Nitrite (Negative) Urine Bilirubin (Negative) Urine Urobilinogen (0.2) mg/dL Ur Leukocyte Esterase (Negative) U Hyaline Cast (Auto) (0-2) /LPF Urine Microscopic RBC (0-5) /HPF Urine Microscopic WBC (0-5) /HPF Ur Epithelial Cells (None Seen) /HPF Urine Bacteria (None Seen) /HPF Urine Culture Reflexed (NO) Ethyl Alcohol (0-10) mg/dL 03/31/24 03/31/24 03/31/24 Range/Units 21:07 19:42 19:40 WBC (4.23-9.07) x10^3/uL RBC (4.63-6.08) x10^6/uL Hgb (13.7-17.5) g/dL Hct (40.1-51.0) % MCV (79.0-92.2) fL MCH (25.7-32.2) pg MCHC (32.3-36.5) g/dL RDW (11.6-14.4) % Plt Count (163-337) x10^3/uL MPV (9.4-12.4) fL Gran % (34.0-67.9) % Immature Gran % (Auto) (0.001-0.429) % Nucleat RBC Rel Count (0.00-0.2) % Eos # (Auto) (0.04-0.54) x10^3/uL Immature Gran # (Auto) (0.001-0.031) x10^3u/L Absolute Lymphs (auto) (1.32-3.57) x10^3/uL Absolute Monos (auto) (0.30-0.82) x10^3/uL Absolute Nucleated RBC (0.00-0.012) x10^3u/L Lymphocytes % (21.8-53.1) % Monocytes % (5.3-12.2) % Eosinophils % (0.8-7.0) % Basophils % (0.2-1.2) % Absolute Granulocytes (1.78-5.38) x10^3/uL Basophils # (0.01-0.08) x10^3/uL PT (9.4-12.5) SECONDS INR (0.8-3.0) APTT (25.1-36.5) SECONDS Sodium (135-145) mmol/L Potassium (3.5-5.1) mmol/L Chloride (98-107) mmol/L Carbon Dioxide (22-30) mmol/L Anion Gap (5-15) MEQ/L BUN (9-20) mg/dL Creatinine (0.66-1.25) mg/dL Estimated GFR ML/MIN Glucose (74-106) mg/dL Lactic Acid 2.1 H (0.4-2.0) Calcium (8.4-10.2) mg/dL Magnesium (1.6-2.3) mg/dL Total Bilirubin (0.2-1.3) mg/dL AST (17-59) U/L ALT (0-50) U/L Alkaline Phosphatase (38-126) U/L Troponin I 0.031 (0.000-0.033) ng/mL Serum Total Protein (6.3-8.2) g/dL Albumin (3.5-5.0) g/dL Urine Color Yellow (Yellow) Urine Appearance Clear (Clear) Urine pH 5.5 (4.6-8.0) Ur Specific Conway 1.015 (1.005-1.030) Urine Protein >=1000 A (Negative) Urine Glucose (UA) Negative (Negative) mg/dL Urine Ketones Negative (Negative) Urine Blood Negative (Negative) Urine Nitrite Negative (Negative) Urine Bilirubin Negative (Negative) Urine Urobilinogen 1.0 A (0.2) mg/dL Ur Leukocyte Esterase Negative (Negative) U Hyaline Cast (Auto) NONE SEEN (0-2) /LPF Urine Microscopic RBC 0-2 (0-5) /HPF Urine Microscopic WBC 0-2 (0-5) /HPF Ur Epithelial Cells None Seen (None Seen) /HPF Urine Bacteria None Seen (None Seen) /HPF Urine Culture Reflexed NO (NO) Ethyl Alcohol (0-10) mg/dL 03/31/24 03/31/24 03/31/24 Range/Units 19:40 19:40 19:40 WBC 7.0 (4.23-9.07) x10^3/uL RBC 3.79 L (4.63-6.08) x10^6/uL Hgb 10.6 L (13.7-17.5) g/dL Hct 35.1 L (40.1-51.0) % MCV 92.6 H (79.0-92.2) fL MCH 28.0 (25.7-32.2) pg MCHC 30.2 L (32.3-36.5) g/dL RDW 15.3 H (11.6-14.4) % Plt Count 179 (163-337) x10^3/uL MPV 12.4 (9.4-12.4) fL Gran % 78.6 H (34.0-67.9) % Immature Gran % (Auto) 1.0 H (0.001-0.429) % Nucleat RBC Rel Count 0.0 (0.00-0.2) % Eos # (Auto) 0.11 (0.04-0.54) x10^3/uL Immature Gran # (Auto) 0.07 H (0.001-0.031) x10^3u/L Absolute Lymphs (auto) 0.88 L (1.32-3.57) x10^3/uL Absolute Monos (auto) 0.40 (0.30-0.82) x10^3/uL Absolute Nucleated RBC 0.00 (0.00-0.012) x10^3u/L Lymphocytes % 12.7 L (21.8-53.1) % Monocytes % 5.8 (5.3-12.2) % Eosinophils % 1.6 (0.8-7.0) % Basophils % 0.3 (0.2-1.2) % Absolute Granulocytes 5.47 H (1.78-5.38) x10^3/uL Basophils # 0.02 (0.01-0.08) x10^3/uL PT 10.4 (9.4-12.5) SECONDS INR 0.95 (0.8-3.0) APTT 23.8 L (25.1-36.5) SECONDS Sodium 142 (135-145) mmol/L Potassium 4.7 (3.5-5.1) mmol/L Chloride 113 H (98-107) mmol/L Carbon Dioxide 23 (22-30) mmol/L Anion Gap 10.4 (5-15) MEQ/L BUN 76 H (9-20) mg/dL Creatinine 1.70 H (0.66-1.25) mg/dL Estimated GFR 43.6 ML/MIN Glucose 123 H (74-106) mg/dL Lactic Acid (0.4-2.0) Calcium 9.0 (8.4-10.2) mg/dL Magnesium 1.4 L (1.6-2.3) mg/dL Total Bilirubin 0.50 (0.2-1.3) mg/dL AST 23 (17-59) U/L ALT 23 (0-50) U/L Alkaline Phosphatase 98 (38-126) U/L Troponin I (0.000-0.033) ng/mL Serum Total Protein 5.3 L (6.3-8.2) g/dL Albumin 2.8 L (3.5-5.0) g/dL Urine Color (Yellow) Urine Appearance (Clear) Urine pH (4.6-8.0) Ur Specific Conway (1.005-1.030) Urine Protein (Negative) Urine Glucose (UA) (Negative) mg/dL Urine Ketones (Negative) Urine Blood (Negative) Urine Nitrite (Negative) Urine Bilirubin (Negative) Urine Urobilinogen (0.2) mg/dL Ur Leukocyte Esterase (Negative) U Hyaline Cast (Auto) (0-2) /LPF Urine Microscopic RBC (0-5) /HPF Urine Microscopic WBC (0-5) /HPF Ur Epithelial Cells (None Seen) /HPF Urine Bacteria (None Seen) /HPF Urine Culture Reflexed (NO) Ethyl Alcohol < 10 (0-10) mg/dL - Progress Progress Note: 03/31/24 23:32 nursing note and vital signs reviewed. No food or housing insecurity noted all labs thoroughly reviewed and shared with patient. Observation admit per Dr. Finley. Patient is 68-year-old gentleman with generalized lethargy, nausea, and headache after fishing in the heat today. Patient stated he does not feel good. Initial troponin was in the high normal range with a mild elevation on the second troponin. He had no chest pain or shortness of breath while in ER but has a history of CABG, hypertension, diabetes mellitus, and smokes less than 1 pack a day until 1.5 years ago. EKG demonstrates a left bundle branch block with is not new. Patient does suffer from chronic renal insufficiency which is slightly worsened upon presentation possibly due to heat exhaustion. Patient given 2 L normal saline bolus while in ER. Upon reviewing patient's chart it was found that patient was discharged from the hospital on 03/22/2024 which he did not mention during his initial H&P for pneumonia, sepsis, worsening renal failure, and congestive heart failure. Lungs are clear on auscultatory exam, sats are excellent, and chest x-ray demonstrates cardiomegaly with resolving by basilar infiltrates/opacities. Observational admit to monitor patient's troponin which is increased slightly and also monitor renal function. CT of the head was also negative, and neurologic exam was within normal limits during entire ER stay. 03/31/24 23:41 03/31/24 23:[address] Other ([facility]) Counseled pt/family regarding: lab results, diagnosis, rad results Medical Desision Making - Independent Historian Additional History obtained from: Relative/friend - External Record(s) Reviewed Records reviewed as a part of evaluation & management: Inpatient - Discussion of managment Care discussed with:: hospitalist Reviewed:: Test results, Need for additional workup Agreed on:: Treatment plan, need for follow-up, place in obs Will see patient: in hospital - Diagnostic Testing Diagnostic test were ordered, analyzed, and reviewed by me: Yes Radiological Interpretation: Interpreted by me - Risk of complications The pt has a high risk of morbidity or mortality based on: Decision regarding hospitilization or escalation of hosp level of care, Decision not to resucitate - Departure Departure Disposition: Observation Clinical Impression: Acute kidney injury, Lethargy Condition: Stable Critical Care Time: No Referrals: NICCI CLAROS MD [Primary Care Provider] - Follow up/PCP as directed
--- NOTE | 2024-03-31 20:44 | XRAY ---
CLINICAL HISTORY: lethargy COMPARISON: 11/30/2022 TECHNIQUE: An axial non-contrast CT scan of the brain was performed from the skull base to the high parietal region. One of the following dose reduction techniques were utilized for this exam: Automated exposure control, adjustment of the mA and/or kV according to patient size, use of iterative reconstruction. FINDINGS: Exaggerated bilateral cerebral white matter hypodensity is noted together with a few ill-defined hypodense areas noted in the frontoparietal subcortical white matter bilaterally, suggestive of microvascular ischemic changes. Right smith radiata hypodense area with no mass effect likely old infarct (new finding) The ventricular system, cortical sulci, and basal cisterns are prominent and consistent with senile changes. Karimi-white matter differentiation is maintained. No midline shifts or deformity. No intracerebral or extra axial hematoma. Normal CT appearance of the posterior fossa structures namely the cerebellar hemispheres, brainstem, and cerebellar peduncles. The IACs are unremarkable. The cerebello-pontine angles are clear. The osseous structures in the skull base are unremarkable. No definite calvarium fractures. The scanned paranasal sinuses are clear. IMPRESSION: No acute intracranial abnormality is present. The above-mentioned findings are suggestive of mild microvascular ischemic changes and senile changes. Unchanged. Right smith radiata hypodense area with no mass effect likely old infarct (new finding) [facility] ER was called at [phone] Ext#[phone] at 7:39 PM DEAN OF EDUCATION, 03/31/2024 and results were verbally communicated to Nurse Olya. Electronically Signed by: Lon Kamara MD. (03/31/2024 20:40:27 EDT)
[2024-03-31 21:19] LABS: Appearance Clear (Clear); Bacteria None Seen /HPF (None Seen); Bilirubin Negative (Negative); Blood Negative (Negative); Epithelial Cells None Seen /HPF (None Seen); Glucose, Urine Negative (Negative); Hyaline Casts NONE SEEN /LPF (0-2); Ketones Negative (Negative); Leukocyte Esterase Negative (Negative); Nitrite Negative (Negative); Ph 5.5 (4.6-8.0); Protein,Urine Dip >=1000 (Negative); RBC 0-2 /HPF (0-5); Specific Gravity 1.015 (1.005-1.030); WBC 0-2 /HPF (0-5)
[2024-03-31 21:20] LABS: ADD URINE CULTURE? NO (NO)
[2024-03-31 22:26] LABS: ANION GAP 7.1 MEQ/L (5-15); Calcium 8.2 mg/dL (8.4-10.2); Creatinine 1 1.75 mg/dL (0.66-1.25); EST GLOMERULAR FILTRATION RATE 42.2 ML/MIN
--- NOTE | 2024-04-01 01:02 | XRAY ---
CLINICAL HISTORY: dyspnea COMPARISON: None. TECHNIQUE: X-ray of the chest was performed in 1 view: AP upright projection. FINDINGS: Poor inspiratory effort with crowding of the ribs noted. Sternotomy sutures and surgical clips represent CABG. Vital signs monitor cables projected over the chest. Borderline cardiomegaly is noted. Increased bronchovascular marking in th bilateral perihilar region with atelectatic bands/infiltrates in the bilateral lower zone, more on the left side. Calcification of the arch of aorta noted. Bilateral costophrenic angles are not sharp could be due to underlying subtle/minimal pleural effusion/projectional The bony thorax shows spondylotic changes. IMPRESSION: The above-mentioned findings could be due to early pulmonary edema/pulmonary infection . Advised clinical and lab correlation along with follow-up. [facility] ER was called at [phone] at 11:57 PM DIRECTOR HARDWARE, 03/31/2024 and Zev Pereira was informed about medical findings. Electronically Signed by: Lon Kamara MD. (04/01/2024 00:58:46 EDT)
--- NOTE | 2024-04-01 02:39 | PCM.HP ---
History of Present Illness - Chief Complaint Chief Complaint: dehydration; heat exhaustion Date: 04/01/24 History of Present Illness: Mr. Marshall is a 68 year-old male with DM2, COPD, HTN, hypothyroidism, chronic anemia, CKD, chronic systolic heart failure (EF 30%), mitral regurgitation, and CAD s/p PCI + CABG who presents with malaise. He was out fishing, and he started to not feel well. Of note, he was recently admitted for a pneumonia. Upon ar rival to [facility], laboratory data was remarkable for an elevated lactate and mildly elevated troponins, while CXR revealed some scant alveolar filling process. He has had no respiratory symptoms or chest pain. On my examination, he is resting comfortably, feeling better, denying any current fevers, chills, nausea, vomiting, diarrhea, syncope, presyncope, visual changes, orthopnea, PND, odynophagia, dysphagia, chest pain, shortness of breath, belly pain, dysuria, hematuria, melena, hematochezia, or neurological changes. All other systems were reviewed and were negative. - Review of Systems Constitutional: Other ( PER HPI) Medications & Allergies Home Medications: Home Medication List Ezetimibe 10 mg PO DAILY 04/26/20 [History Confirmed 03/31/24] Clopidogrel Bisulfate [PLAVIX Tablet] 75 mg PO DAILY 02/10/21 [History Confirmed 03/31/24] Allopurinol 100 mg [Zyloprim 100 mg] 200 mg PO DAILY 06/06/21 [History Confirmed 03/31/24] Aspirin EC 81 mg [Ecotrin 81 mg] 81 mg PO DAILY 10/23/22 [History Confirmed 03/31/24] Metformin HCl [Metformin HCl ER] 1,000 mg PO BID 11/05/22 [History Confirmed 03/31/24] Atorvastatin Calcium 1 tab PO DAILY 03/15/24 [History Confirmed 03/31/24] PANTOPRAZOLE 40 mg Tablet [Protonix 40MG Tablet] 1 tab PO BID 03/15/24 [History Confirmed 03/31/24] Potassium Chloride 20 meq PO DAILY 30 Days #30 tablet 03/17/24 [Rx Confirmed 03/31/24] Amlodipine Besylate 5 mg [Norvasc 5 mg] 5 mg PO DAILY 30 Days #30 tablet 03/22/24 [Rx Confirmed 03/31/24] Metoprolol Succinate 50 mg [Toprol Xl 50 MG] 50 mg PO DAILY 30 Days #30 tablet 03/22/24 [Rx Confirmed 03/31/24] Torsemide 20 mg [Demadex 20 mg] 40 mg PO DAILY 30 Days #60 tablet 03/22/24 [Rx Confirmed 03/31/24] Allergies/Adverse Reactions: Allergies Allergy/AdvReac Type Severity Reaction Status Date / Time gabapentin AdvReac Verified 03/31/24 19:26 - Past Medical History Past Medical History: Yes Neurological History: No Pertinent History ENT History: No Pertinent History Cardiac History: Angina, Congestive Heart Failure, Coronary Artery Disease, High Cholesterol, Hypertension, Myocardial Infarction ([place]) Respiratory History: COPD Endocrine Medical History: Diabetes Type II Musculoskelatal History: Osteoarthritis GI Medical History: No Pertinent History History: No Pertinent History Pyscho-Social History: No Pertinent History, Depression Male Reproductive Disorders: No Pertinent History Comment: fractured ribs, anemia, gout - Past Surgical History Past Surgical History: Yes Neuro Surgical History: No Pertinent History Cardiac History: CABG, Cardiac Catheterization, Cardiac Stent, Other Respiratory Surgery: Chest Surgery GI Surgical History: No Pertinent History Genitourinary Surgical Hx: No Pertinent History Musculskeletal Surgical Hx: Orthopedic Surgery Male Surgical History: No Pertinent History Other Surgical History: umbilical, triple bypass, L shoulder Significant Family History: no pertinent family hx - Social History Smoking Status: Former smoker How long have you smoked: 53 Exposure to second hand smoke: No Alcohol: Rarely Drug Use: none - Social Determinants of Health Will the patient participate in the screening: Yes Do you worry about a steady place to live?: No Do you have any problems with any of the following?: No known problems In the past 12 months,have you had to go without utilities?: No Have you or anyone in your house had to go without enough: No Transportation Issues: No Has anyone in your support network made you feel unsafe?: No Does the patient want assistance with any of the above?: No - Physical Exam Vital Signs: Vital Signs - 24 hr Temp Pulse Resp BP BP Pulse Ox 04/01/24 00:34 98.5 F 66 18 138/99 97 06/22/24 00:00 66 18 141/70 97 03/31/24 23:50 97 03/31/24 23:30 67 20 141/71 98 03/31/24 23:00 68 18 139/81 98 03/31/24 22:30 72 128/66 97 03/31/24 22:00 71 21 144/74 95 03/31/24 21:30 73 14 137/75 97 03/31/24 21:00 71 19 140/71 96 03/31/24 20:30 74 22 118/80 95 03/31/24 20:00 73 24 139/77 94 L 03/31/24 19:30 74 20 137/70 95 03/31/24 19:27 98.5 F 84 12 138/99 97 General Appearance: no apparent distress, alert Neurologic Exam: alert, oriented x 3, cooperative, normal mood/affect, nml cerebellar function, nml station & gait, sensation nml, No motor deficits Eye Exam: PERRL/EOMI, eyes nml inspection Ears, Nose, Throat Exam: normal ENT inspection, TMs normal, pharynx normal, moist mucous membranes Neck Exam: normal inspection, non-tender, supple, full range of motion Respiratory Exam: normal breath sounds, lungs clear, No respiratory distress Cardiovascular Exam: regular rate/rhythm, normal heart sounds, normal peripheral pulses Gastrointestinal/Abdomen Exam: soft, normal bowel sounds, No tenderness, No mass Back Exam: normal inspection, normal range of motion, No CVA tenderness, No vertebral tenderness Extremity Exam: normal inspection, normal range of motion, pelvis stable Skin Exam: normal color, warm, dry, No rash Lymphatic Exam: No adenopathy Results - Labs Lab/Micro Results: Lab Results-Last 24 Hours 03/31/24 03/31/24 03/31/24 Range/Units 19:40 19:40 19:40 WBC 7.0 (4.23-9.07) x10^3/uL RBC 3.79 L (4.63-6.08) x10^6/uL Hgb 10.6 L (13.7-17.5) g/dL Hct 35.1 L (40.1-51.0) % MCV 92.6 H (79.0-92.2) fL MCH 28.0 (25.7-32.2) pg MCHC 30.2 L (32.3-36.5) g/dL RDW 15.3 H (11.6-14.4) % Plt Count 179 (163-337) x10^3/uL MPV 12.4 (9.4-12.4) fL Gran % 78.6 H (34.0-67.9) % Immature Gran % (Auto) 1.0 H (0.001-0.429) % Nucleat RBC Rel Count 0.0 (0.00-0.2) % Eos # (Auto) 0.11 (0.04-0.54) x10^3/uL Immature Gran # (Auto) 0.07 H (0.001-0.031) x10^3u/L Absolute Lymphs (auto) 0.88 L (1.32-3.57) x10^3/uL Absolute Monos (auto) 0.40 (0.30-0.82) x10^3/uL Absolute Nucleated RBC 0.00 (0.00-0.012) x10^3u/L Lymphocytes % 12.7 L (21.8-53.1) % Monocytes % 5.8 (5.3-12.2) % Eosinophils % 1.6 (0.8-7.0) % Basophils % 0.3 (0.2-1.2) % Absolute Granulocytes 5.47 H (1.78-5.38) x10^3/uL Basophils # 0.02 (0.01-0.08) x10^3/uL PT 10.4 (9.4-12.5) SECONDS INR 0.95 (0.8-3.0) APTT 23.8 L (25.1-36.5) SECONDS Sodium 142 (135-145) mmol/L Potassium 4.7 (3.5-5.1) mmol/L Chloride 113 H (98-107) mmol/L Carbon Dioxide 23 (22-30) mmol/L Anion Gap 10.4 (5-15) MEQ/L BUN 76 H (9-20) mg/dL Creatinine 1.70 H (0.66-1.25) mg/dL Estimated GFR 43.6 ML/MIN Glucose 123 H (74-106) mg/dL Lactic Acid (0.4-2.0) Calcium 9.0 (8.4-10.2) mg/dL Magnesium 1.4 L (1.6-2.3) mg/dL Total Bilirubin 0.50 (0.2-1.3) mg/dL AST 23 (17-59) U/L ALT 23 (0-50) U/L Alkaline Phosphatase 98 (38-126) U/L Troponin I (0.000-0.033) ng/mL Serum Total Protein 5.3 L (6.3-8.2) g/dL Albumin 2.8 L (3.5-5.0) g/dL Urine Color (Yellow) Urine Appearance (Clear) Urine pH (4.6-8.0) Ur Specific [place] (1.005-1.030) Urine Protein (Negative) Urine Glucose (UA) (Negative) mg/dL Urine Ketones (Negative) Urine Blood (Negative) Urine Nitrite (Negative) Urine Bilirubin (Negative) Urine Urobilinogen (0.2) mg/dL Ur Leukocyte Esterase (Negative) U Hyaline Cast (Auto) (0-2) /LPF Urine Microscopic RBC (0-5) /HPF Urine Microscopic WBC (0-5) /HPF Ur Epithelial Cells (None Seen) /HPF Urine Bacteria (None Seen) /HPF Urine Culture Reflexed (NO) Ethyl Alcohol < 10 (0-10) mg/dL 03/31/24 03/31/24 03/31/24 Range/Units 19:40 19:42 21:07 WBC (4.23-9.07) x10^3/uL RBC (4.63-6.08) x10^6/uL Hgb (13.7-17.5) g/dL Hct (40.1-51.0) % MCV (79.0-92.2) fL MCH (25.7-32.2) pg MCHC (32.3-36.5) g/dL RDW (11.6-14.4) % Plt Count (163-337) x10^3/uL MPV (9.4-12.4) fL Gran % (34.0-67.9) % Immature Gran % (Auto) (0.001-0.429) % Nucleat RBC Rel Count (0.00-0.2) % Eos # (Auto) (0.04-0.54) x10^3/uL Immature Gran # (Auto) (0.001-0.031) x10^3u/L Absolute Lymphs (auto) (1.32-3.57) x10^3/uL Absolute Monos (auto) (0.30-0.82) x10^3/uL Absolute Nucleated RBC (0.00-0.012) x10^3u/L Lymphocytes % (21.8-53.1) % Monocytes % (5.3-12.2) % Eosinophils % (0.8-7.0) % Basophils % (0.2-1.2) % Absolute Granulocytes (1.78-5.38) x10^3/uL Basophils # (0.01-0.08) x10^3/uL PT (9.4-12.5) SECONDS INR (0.8-3.0) APTT (25.1-36.5) SECONDS Sodium (135-145) mmol/L Potassium (3.5-5.1) mmol/L Chloride (98-107) mmol/L Carbon Dioxide (22-30) mmol/L Anion Gap (5-15) MEQ/L BUN (9-20) mg/dL Creatinine (0.66-1.25) mg/dL Estimated GFR ML/MIN Glucose (74-106) mg/dL Lactic Acid 2.1 H (0.4-2.0) Calcium (8.4-10.2) mg/dL Magnesium (1.6-2.3) mg/dL Total Bilirubin (0.2-1.3) mg/dL AST (17-59) U/L ALT (0-50) U/L Alkaline Phosphatase (38-126) U/L Troponin I 0.031 (0.000-0.033) ng/mL Serum Total Protein (6.3-8.2) g/dL Albumin (3.5-5.0) g/dL Urine Color Yellow (Yellow) Urine Appearance Clear (Clear) Urine pH 5.5 (4.6-8.0) Ur Specific [place] 1.015 (1.005-1.030) Urine Protein >=1000 A (Negative) Urine Glucose (UA) Negative (Negative) mg/dL Urine Ketones Negative (Negative) Urine Blood Negative (Negative) Urine Nitrite Negative (Negative) Urine Bilirubin Negative (Negative) Urine Urobilinogen 1.0 A (0.2) mg/dL Ur Leukocyte Esterase Negative (Negative) U Hyaline Cast (Auto) NONE SEEN (0-2) /LPF Urine Microscopic RBC 0-2 (0-5) /HPF Urine Microscopic WBC 0-2 (0-5) /HPF Ur Epithelial Cells None Seen (None Seen) /HPF Urine Bacteria None Seen (None Seen) /HPF Urine Culture Reflexed NO (NO) Ethyl Alcohol (0-10) mg/dL 03/31/24 03/31/24 03/31/24 Range/Units 21:48 22:05 22:05 WBC (4.23-9.07) x10^3/uL RBC (4.63-6.08) x10^6/uL Hgb (13.7-17.5) g/dL Hct (40.1-51.0) % MCV (79.0-92.2) fL MCH (25.7-32.2) pg MCHC (32.3-36.5) g/dL RDW (11.6-14.4) % Plt Count (163-337) x10^3/uL MPV (9.4-12.4) fL Gran % (34.0-67.9) % Immature Gran % (Auto) (0.001-0.429) % Nucleat RBC Rel Count (0.00-0.2) % Eos # (Auto) (0.04-0.54) x10^3/uL Immature Gran # (Auto) (0.001-0.031) x10^3u/L Absolute Lymphs (auto) (1.32-3.57) x10^3/uL Absolute Monos (auto) (0.30-0.82) x10^3/uL Absolute Nucleated RBC (0.00-0.012) x10^3u/L Lymphocytes % (21.8-53.1) % Monocytes % (5.3-12.2) % Eosinophils % (0.8-7.0) % Basophils % (0.2-1.2) % Absolute Granulocytes (1.78-5.38) x10^3/uL Basophils # (0.01-0.08) x10^3/uL PT (9.4-12.5) SECONDS INR (0.8-3.0) APTT (25.1-36.5) SECONDS Sodium 142 (135-145) mmol/L Potassium 4.0 (3.5-5.1) mmol/L Chloride 115 H (98-107) mmol/L Carbon Dioxide 23 (22-30) mmol/L Anion Gap 7.1 (5-15) MEQ/L BUN 68 H (9-20) mg/dL Creatinine 1.75 H (0.66-1.25) mg/dL Estimated GFR 42.2 ML/MIN Glucose 114 H (74-106) mg/dL Lactic Acid 0.8 (0.4-2.0) Calcium 8.2 L (8.4-10.2) mg/dL Magnesium (1.6-2.3) mg/dL Total Bilirubin (0.2-1.3) mg/dL AST (17-59) U/L ALT (0-50) U/L Alkaline Phosphatase (38-126) U/L Troponin I 0.037 H* (0.000-0.033) ng/mL Serum Total Protein (6.3-8.2) g/dL Albumin (3.5-5.0) g/dL Urine Color (Yellow) Urine Appearance (Clear) Urine pH (4.6-8.0) Ur Specific [place] (1.005-1.030) Urine Protein (Negative) Urine Glucose (UA) (Negative) mg/dL Urine Ketones (Negative) Urine Blood (Negative) Urine Nitrite (Negative) Urine Bilirubin (Negative) Urine Urobilinogen (0.2) mg/dL Ur Leukocyte Esterase (Negative) U Hyaline Cast (Auto) (0-2) /LPF Urine Microscopic RBC (0-5) /HPF Urine Microscopic WBC (0-5) /HPF Ur Epithelial Cells (None Seen) /HPF Urine Bacteria (None Seen) /HPF Urine Culture Reflexed (NO) Ethyl Alcohol (0-10) mg/dL - Radiology Impressions Radiology Exams & Impressions: Radiology Procedures Category Date Time Status CHEST 1 VIEW (PORTABLE) Stat Exams 03/31/24 23:19 Completed HEAD WITHOUT CONTRAST [CT] Stat Exams 03/31/24 19:56 Completed Assessment/Plan (1) Lethargy Current Visit: Yes Status: Acute Assessment & Plan: ASSESSMENT 1. Malaise and Lethargy 2. Non ST-Elevation Myocardial Infarction Type I vs. II 3. Elevated Lactate 4. Coronary Artery Disease s/p PCI + CABG 5. Hypertension 6. Hyperlipidemia 7. Chronic Kidney Disease 8. Type II Diabetes Mellitus 9. Chronic Anemia 10. Chronic Obstructive Pulmonary Disease 11. Pulmonary Hypertension by Echocardiogram 12. Mitral Regurgitation PLAN 1. Gentle fluids 2. Lactate trending down 3. Repeat Troponin now; consider having Cardiology see him in AM; no need for therapeutic AC for now 4. CXR with some scant alveolar process in the setting of a recent admission for CHF exacerbation +/- pneumonia; repeat imaging in 6-8 weeks 5. Cr at baseline 6. H/H at baseline 7. Continue home medications SQ Heparin The entirety of this encounter was done via telemedicine with audio and visual. Consent was obtained for a telemedicine encounter. Moises Finley MD Pulmonary and Critical Care Medicine Code(s): R53.83 - OTHER FATIGUE Telemedicine Encounter - Telemedicine Encounter Telemedicine Encounter: The entirety of this encounter was performed via Telemedicine"
[2024-04-01] MEDS: Lactated Ringers 1,000 ML IV SCH (02:53)
[2024-04-01 04:03] LABS: ANION GAP 7.4 MEQ/L (5-15); BILIRUBIN,TOTAL 0.4 mg/dL (0.2-1.3); Calcium 8.8 mg/dL (8.4-10.2); Creatinine 1 1.64 mg/dL (0.66-1.25); EST GLOMERULAR FILTRATION RATE 45.6 ML/MIN; MAGNESIUM 1.5 mg/dL (1.6-2.3); Total Protein 5.7 g/dL (6.3-8.2)
[2024-04-01 04:15] LABS: BASOPHIL % 0.1 % (0.2-1.2); Basophil (Absolute #) 0.01 x10^3/uL (0.01-0.08); Eosinophil % 1.5 % (0.8-7.0); Hemoglobin 10.8 g/dL (13.7-17.5); IMMATURE GRAN # 0.03 x10^3u/L (0.001-0.031); IMMATURE GRAN % 0.4 % (0.001-0.429); Lymphocyte (Absolute #) 0.95 x10^3/uL (1.32-3.57); Mean Corpuscular Hemoglobin 28.2 pg (25.7-32.2); Mean Platelet Volume 12.6 fL (9.4-12.4); Monocyte (Absolute #) 0.41 x10^3/uL (0.30-0.82); Platelet Count 179 x10^3/uL (163-337); Red Blood Count 3.83 x10^6/uL (4.63-6.08); Red Cell Distribution Width 15.6 % (11.6-14.4); White Blood Count 6.8 x10^3/uL (4.23-9.07)
[2024-04-01] MEDS: MAGNESIUM SULF 2 G/50 ML BAG 2 GM/50 ML PIGGYBACK IV ONE (08:45)
[2024-04-01] MEDS: HEPARIN 5000 UNITS/0.5 ML (HIGH RISK MED) SQ SCH (08:46)
[2024-04-01] MEDS: Zocor 10MG PO SCH (08:47)
[2024-04-01] MEDS: ECOTRIN 81 MG PO SCH (08:47)
[2024-04-01] MEDS: PLAVIX Tablet PO SCH (08:48)
[2024-04-01] MEDS: Glucophage XR 500 MG PO SCH (08:48)
[2024-04-01] MEDS: Zetia 10 MG PO SCH (08:48)
[2024-04-01] MEDS: Protonix 40MG Tablet PO SCH (08:49)
[2024-04-01] MEDS: NORVASC 5 MG PO SCH (08:49)
[2024-04-01] MEDS: Toprol Xl 50 MG PO SCH (08:49)
--- NOTE | 2024-04-01 10:16 | PCM.DS ---
Discharge Summary Date of Admission: 04/01/24 00:03 Date of Discharge: 04/01/24 Admitting Physician: SUHAS ZAMORA MD Primary Care Provider: NICCI CLAROS Allergies Allergies gabapentin Adverse Reaction (Verified 03/31/24 19:26) "got kind of loopy" Hospital Summary - Hospital Course Hospital Course: 04/01/24 Mr. Marshall is a 68 year-old male with DM2, COPD, HTN, hypothyroidism, chronic anemia, CKD, chronic systolic heart failure (EF 30%), mitral regurgitation, and CAD s/p PCI + CABG who presents with malaise. He was out fishing, and he started to not feel well. Of note, he was recently admitted for a pneumonia. Upon arriv al to [place], laboratory data was remarkable for an elevated lactate and mildly elevated troponins, while CXR revealed some scant alveolar filling process. He has had no respiratory symptoms or chest pain. On my examination, he is resting comfortably, feeling better, denying any current fevers, chills, nausea, vomiting, diarrhea, syncope, presyncope, visual changes, orthopnea, PND, odynophagia, dysphagia, chest pain, shortness of breath, belly pain, dysuria, hematuria, melena, hematochezia, or neurological changes. All other systems were reviewed and were negative. He is feeling better today after IVF. Mg+ 1.5 and replaced. If he is doing well and walking around without concern he can d/c. - Vitals & Intake/Output Vital Signs: Vital Signs Temperature 97.1 F 04/01/24 07:07 Pulse Rate 70 04/01/24 07:07 Respiratory Rate 21 04/01/24 08:00 Blood Pressure 164/79 04/01/24 07:07 O2 Sat by Pulse Oximetry 96 04/01/24 07:07 Intake & Output: Intake & Output 03/29/24 03/30/24 03/31/24 04/01/24 11:59 11:59 11:59 11:59 Intake Total 960 Output Total 1275 Balance -315 Weight 104.7 kg - Lab Result Diagrams: 04/01/24 03:40 04/01/24 03:40 Lab Results-Last 24 Hrs: Lab Results-Last 24 Hours 06/21/24 06/21/24 06/21/24 Range/Units 19:40 19:40 19:40 WBC 7.0 (4.23-9.07) x10^3/uL RBC 3.79 L (4.63-6.08) x10^6/uL Hgb 10.6 L (13.7-17.5) g/dL Hct 35.1 L (40.1-51.0) % MCV 92.6 H (79.0-92.2) fL MCH 28.0 (25.7-32.2) pg MCHC 30.2 L (32.3-36.5) g/dL RDW 15.3 H (11.6-14.4) % Plt Count 179 (163-337) x10^3/uL MPV 12.4 (9.4-12.4) fL Gran % 78.6 H (34.0-67.9) % Immature Gran % (Auto) 1.0 H (0.001-0.429) % Nucleat RBC Rel Count 0.0 (0.00-0.2) % Eos # (Auto) 0.11 (0.04-0.54) x10^3/uL Immature Gran # (Auto) 0.07 H (0.001-0.031) x10^3u/L Absolute Lymphs (auto) 0.88 L (1.32-3.57) x10^3/uL Absolute Monos (auto) 0.40 (0.30-0.82) x10^3/uL Absolute Nucleated RBC 0.00 (0.00-0.012) x10^3u/L Lymphocytes % 12.7 L (21.8-53.1) % Monocytes % 5.8 (5.3-12.2) % Eosinophils % 1.6 (0.8-7.0) % Basophils % 0.3 (0.2-1.2) % Absolute Granulocytes 5.47 H (1.78-5.38) x10^3/uL Basophils # 0.02 (0.01-0.08) x10^3/uL PT 10.4 (9.4-12.5) SECONDS INR 0.95 (0.8-3.0) APTT 23.8 L (25.1-36.5) SECONDS Sodium 142 (135-145) mmol/L Potassium 4.7 (3.5-5.1) mmol/L Chloride 113 H (98-107) mmol/L Carbon Dioxide 23 (22-30) mmol/L Anion Gap 10.4 (5-15) MEQ/L BUN 76 H (9-20) mg/dL Creatinine 1.70 H (0.66-1.25) mg/dL Estimated GFR 43.6 ML/MIN Glucose 123 H (74-106) mg/dL POC Glucometer (74 to 106) mg/dL Lactic Acid (0.4-2.0) Calcium 9.0 (8.4-10.2) mg/dL Magnesium 1.4 L (1.6-2.3) mg/dL Total Bilirubin 0.50 (0.2-1.3) mg/dL AST 23 (17-59) U/L ALT 23 (0-50) U/L Alkaline Phosphatase 98 (38-126) U/L Troponin I (0.000-0.033) ng/mL Serum Total Protein 5.3 L (6.3-8.2) g/dL Albumin 2.8 L (3.5-5.0) g/dL Urine Color (Yellow) Urine Appearance (Clear) Urine pH (4.6-8.0) Ur Specific [place] (1.005-1.030) Urine Protein (Negative) Urine Glucose (UA) (Negative) mg/dL Urine Ketones (Negative) Urine Blood (Negative) Urine Nitrite (Negative) Urine Bilirubin (Negative) Urine Urobilinogen (0.2) mg/dL Ur Leukocyte Esterase (Negative) U Hyaline Cast (Auto) (0-2) /LPF Urine Microscopic RBC (0-5) /HPF Urine Microscopic WBC (0-5) /HPF Ur Epithelial Cells (None Seen) /HPF Urine Bacteria (None Seen) /HPF Urine Culture Reflexed (NO) Ethyl Alcohol < 10 (0-10) mg/dL 03/31/24 03/31/24 03/31/24 Range/Units 19:40 19:42 21:07 WBC (4.23-9.07) x10^3/uL RBC (4.63-6.08) x10^6/uL Hgb (13.7-17.5) g/dL Hct (40.1-51.0) % MCV (79.0-92.2) fL MCH (25.7-32.2) pg MCHC (32.3-36.5) g/dL RDW (11.6-14.4) % Plt Count (163-337) x10^3/uL MPV (9.4-12.4) fL Gran % (34.0-67.9) % Immature Gran % (Auto) (0.001-0.429) % Nucleat RBC Rel Count (0.00-0.2) % Eos # (Auto) (0.04-0.54) x10^3/uL Immature Gran # (Auto) (0.001-0.031) x10^3u/L Absolute Lymphs (auto) (1.32-3.57) x10^3/uL Absolute Monos (auto) (0.30-0.82) x10^3/uL Absolute Nucleated RBC (0.00-0.012) x10^3u/L Lymphocytes % (21.8-53.1) % Monocytes % (5.3-12.2) % Eosinophils % (0.8-7.0) % Basophils % (0.2-1.2) % Absolute Granulocytes (1.78-5.38) x10^3/uL Basophils # (0.01-0.08) x10^3/uL PT (9.4-12.5) SECONDS INR (0.8-3.0) APTT (25.1-36.5) SECONDS Sodium (135-145) mmol/L Potassium (3.5-5.1) mmol/L Chloride (98-107) mmol/L Carbon Dioxide (22-30) mmol/L Anion Gap (5-15) MEQ/L BUN (9-20) mg/dL Creatinine (0.66-1.25) mg/dL Estimated GFR ML/MIN Glucose (74-106) mg/dL POC Glucometer (74 to 106) mg/dL Lactic Acid 2.1 H (0.4-2.0) Calcium (8.4-10.2) mg/dL Magnesium (1.6-2.3) mg/dL Total Bilirubin (0.2-1.3) mg/dL AST (17-59) U/L ALT (0-50) U/L Alkaline Phosphatase (38-126) U/L Troponin I 0.031 (0.000-0.033) ng/mL Serum Total Protein (6.3-8.2) g/dL Albumin (3.5-5.0) g/dL Urine Color Yellow (Yellow) Urine Appearance Clear (Clear) Urine pH 5.5 (4.6-8.0) Ur Specific [place] 1.015 (1.005-1.030) Urine Protein >=1000 A (Negative) Urine Glucose (UA) Negative (Negative) mg/dL Urine Ketones Negative (Negative) Urine Blood Negative (Negative) Urine Nitrite Negative (Negative) Urine Bilirubin Negative (Negative) Urine Urobilinogen 1.0 A (0.2) mg/dL Ur Leukocyte Esterase Negative (Negative) U Hyaline Cast (Auto) NONE SEEN (0-2) /LPF Urine Microscopic RBC 0-2 (0-5) /HPF Urine Microscopic WBC 0-2 (0-5) /HPF Ur Epithelial Cells None Seen (None Seen) /HPF Urine Bacteria None Seen (None Seen) /HPF Urine Culture Reflexed NO (NO) Ethyl Alcohol (0-10) mg/dL 03/31/24 03/31/24 03/31/24 Range/Units 21:48 22:05 22:05 WBC (4.23-9.07) x10^3/uL RBC (4.63-6.08) x10^6/uL Hgb (13.7-17.5) g/dL Hct (40.1-51.0) % MCV (79.0-92.2) fL MCH (25.7-32.2) pg MCHC (32.3-36.5) g/dL RDW (11.6-14.4) % Plt Count (163-337) x10^3/uL MPV (9.4-12.4) fL Gran % (34.0-67.9) % Immature Gran % (Auto) (0.001-0.429) % Nucleat RBC Rel Count (0.00-0.2) % Eos # (Auto) (0.04-0.54) x10^3/uL Immature Gran # (Auto) (0.001-0.031) x10^3u/L Absolute Lymphs (auto) (1.32-3.57) x10^3/uL Absolute Monos (auto) (0.30-0.82) x10^3/uL Absolute Nucleated RBC (0.00-0.012) x10^3u/L Lymphocytes % (21.8-53.1) % Monocytes % (5.3-12.2) % Eosinophils % (0.8-7.0) % Basophils % (0.2-1.2) % Absolute Granulocytes (1.78-5.38) x10^3/uL Basophils # (0.01-0.08) x10^3/uL PT (9.4-12.5) SECONDS INR (0.8-3.0) APTT (25.1-36.5) SECONDS Sodium 142 (135-145) mmol/L Potassium 4.0 (3.5-5.1) mmol/L Chloride 115 H (98-107) mmol/L Carbon Dioxide 23 (22-30) mmol/L Anion Gap 7.1 (5-15) MEQ/L BUN 68 H (9-20) mg/dL Creatinine 1.75 H (0.66-1.25) mg/dL Estimated GFR 42.2 ML/MIN Glucose 114 H (74-106) mg/dL POC Glucometer (74 to 106) mg/dL Lactic Acid 0.8 (0.4-2.0) Calcium 8.2 L (8.4-10.2) mg/dL Magnesium (1.6-2.3) mg/dL Total Bilirubin (0.2-1.3) mg/dL AST (17-59) U/L ALT (0-50) U/L Alkaline Phosphatase (38-126) U/L Troponin I 0.037 H* (0.000-0.033) ng/mL Serum Total Protein (6.3-8.2) g/dL Albumin (3.5-5.0) g/dL Urine Color (Yellow) Urine Appearance (Clear) Urine pH (4.6-8.0) Ur Specific [place] (1.005-1.030) Urine Protein (Negative) Urine Glucose (UA) (Negative) mg/dL Urine Ketones (Negative) Urine Blood (Negative) Urine Nitrite (Negative) Urine Bilirubin (Negative) Urine Urobilinogen (0.2) mg/dL Ur Leukocyte Esterase (Negative) U Hyaline Cast (Auto) (0-2) /LPF Urine Microscopic RBC (0-5) /HPF Urine Microscopic WBC (0-5) /HPF Ur Epithelial Cells (None Seen) /HPF Urine Bacteria (None Seen) /HPF Urine Culture Reflexed (NO) Ethyl Alcohol (0-10) mg/dL 04/01/24 04/01/24 04/01/24 Range/Units 03:40 03:40 03:40 WBC 6.8 (4.23-9.07) x10^3/uL RBC 3.83 L (4.63-6.08) x10^6/uL Hgb 10.8 L (13.7-17.5) g/dL Hct 36.0 L (40.1-51.0) % MCV 94.0 H (79.0-92.2) fL MCH 28.2 (25.7-32.2) pg MCHC 30.0 L (32.3-36.5) g/dL RDW 15.6 H (11.6-14.4) % Plt Count 179 (163-337) x10^3/uL MPV 12.6 H (9.4-12.4) fL Gran % 78.0 H (34.0-67.9) % Immature Gran % (Auto) 0.4 (0.001-0.429) % Nucleat RBC Rel Count 0.0 (0.00-0.2) % Eos # (Auto) 0.10 (0.04-0.54) x10^3/uL Immature Gran # (Auto) 0.03 (0.001-0.031) x10^3u/L Absolute Lymphs (auto) 0.95 L (1.32-3.57) x10^3/uL Absolute Monos (auto) 0.41 (0.30-0.82) x10^3/uL Absolute Nucleated RBC 0.00 (0.00-0.012) x10^3u/L Lymphocytes % 14.0 L (21.8-53.1) % Monocytes % 6.0 (5.3-12.2) % Eosinophils % 1.5 (0.8-7.0) % Basophils % 0.1 L (0.2-1.2) % Absolute Granulocytes 5.30 (1.78-5.38) x10^3/uL Basophils # 0.01 (0.01-0.08) x10^3/uL PT (9.4-12.5) SECONDS INR (0.8-3.0) APTT (25.1-36.5) SECONDS Sodium 143 (135-145) mmol/L Potassium 4.0 (3.5-5.1) mmol/L Chloride 113 H (98-107) mmol/L Carbon Dioxide 27 (22-30) mmol/L Anion Gap 7.4 (5-15) MEQ/L BUN 64 H (9-20) mg/dL Creatinine 1.64 H (0.66-1.25) mg/dL Estimated GFR 45.6 ML/MIN Glucose 113 H (74-106) mg/dL POC Glucometer (74 to 106) mg/dL Lactic Acid (0.4-2.0) Calcium 8.8 (8.4-10.2) mg/dL Magnesium 1.5 L (1.6-2.3) mg/dL Total Bilirubin 0.40 (0.2-1.3) mg/dL AST 23 (17-59) U/L ALT 22 (0-50) U/L Alkaline Phosphatase 114 (38-126) U/L Troponin I 0.039 H* (0.000-0.033) ng/mL Serum Total Protein 5.7 L (6.3-8.2) g/dL Albumin 3.0 L (3.5-5.0) g/dL Urine Color (Yellow) Urine Appearance (Clear) Urine pH (4.6-8.0) Ur Specific [place] (1.005-1.030) Urine Protein (Negative) Urine Glucose (UA) (Negative) mg/dL Urine Ketones (Negative) Urine Blood (Negative) Urine Nitrite (Negative) Urine Bilirubin (Negative) Urine Urobilinogen (0.2) mg/dL Ur Leukocyte Esterase (Negative) U Hyaline Cast (Auto) (0-2) /LPF Urine Microscopic RBC (0-5) /HPF Urine Microscopic WBC (0-5) /HPF Ur Epithelial Cells (None Seen) /HPF Urine Bacteria (None Seen) /HPF Urine Culture Reflexed (NO) Ethyl Alcohol (0-10) mg/dL 06/22/24 Range/Units 06:39 WBC (4.23-9.07) x10^3/uL RBC (4.63-6.08) x10^6/uL Hgb (13.7-17.5) g/dL Hct (40.1-51.0) % MCV (79.0-92.2) fL MCH (25.7-32.2) pg MCHC (32.3-36.5) g/dL RDW (11.6-14.4) % Plt Count (163-337) x10^3/uL MPV (9.4-12.4) fL Gran % (34.0-67.9) % Immature Gran % (Auto) (0.001-0.429) % Nucleat RBC Rel Count (0.00-0.2) % Eos # (Auto) (0.04-0.54) x10^3/uL Immature Gran # (Auto) (0.001-0.031) x10^3u/L Absolute Lymphs (auto) (1.32-3.57) x10^3/uL Absolute Monos (auto) (0.30-0.82) x10^3/uL Absolute Nucleated RBC (0.00-0.012) x10^3u/L Lymphocytes % (21.8-53.1) % Monocytes % (5.3-12.2) % Eosinophils % (0.8-7.0) % Basophils % (0.2-1.2) % Absolute Granulocytes (1.78-5.38) x10^3/uL Basophils # (0.01-0.08) x10^3/uL PT (9.4-12.5) SECONDS INR (0.8-3.0) APTT (25.1-36.5) SECONDS Sodium (135-145) mmol/L Potassium (3.5-5.1) mmol/L Chloride (98-107) mmol/L Carbon Dioxide (22-30) mmol/L Anion Gap (5-15) MEQ/L BUN (9-20) mg/dL Creatinine (0.66-1.25) mg/dL Estimated GFR ML/MIN Glucose (74-106) mg/dL POC Glucometer 121 H (74 to 106) mg/dL Lactic Acid (0.4-2.0) Calcium (8.4-10.2) mg/dL Magnesium (1.6-2.3) mg/dL Total Bilirubin (0.2-1.3) mg/dL AST (17-59) U/L ALT (0-50) U/L Alkaline Phosphatase (38-126) U/L Troponin I (0.000-0.033) ng/mL Serum Total Protein (6.3-8.2) g/dL Albumin (3.5-5.0) g/dL Urine Color (Yellow) Urine Appearance (Clear) Urine pH (4.6-8.0) Ur Specific [place] (1.005-1.030) Urine Protein (Negative) Urine Glucose (UA) (Negative) mg/dL Urine Ketones (Negative) Urine Blood (Negative) Urine Nitrite (Negative) Urine Bilirubin (Negative) Urine Urobilinogen (0.2) mg/dL Ur Leukocyte Esterase (Negative) U Hyaline Cast (Auto) (0-2) /LPF Urine Microscopic RBC (0-5) /HPF Urine Microscopic WBC (0-5) /HPF Ur Epithelial Cells (None Seen) /HPF Urine Bacteria (None Seen) /HPF Urine Culture Reflexed (NO) Ethyl Alcohol (0-10) mg/dL Micro Results-Entire Visit: Accuchecks Date 04/01/24 Time 07:07 - Radiology Exams Ordered Rad Exams-Entire Visit: Radiology Procedures Category Date Time Status CHEST 1 VIEW (PORTABLE) Stat Exams 03/31/24 23:19 Completed HEAD WITHOUT CONTRAST [CT] Stat Exams 03/31/24 19:56 Completed Discharge Exam General Appearance: no apparent distress, alert Neurologic Exam: alert, oriented x 3, cooperative, normal mood/affect, nml cerebellar function, sensation nml, No motor deficits Eye Exam: PERRL, EOMI, eyes nml inspection Ears, Nose, Throat Exam: normal ENT inspection, pharynx normal, moist mucous membranes Neck Exam: normal inspection, non-tender, supple, full range of motion Respiratory Exam: normal breath sounds, lungs clear, No respiratory distress Cardiovascular Exam: regular rate/rhythm, normal heart sounds, edema (BLLE- chronic) Gastrointestinal/Abdomen Exam: soft, No tenderness, No mass Male Genitalia Exam: deferred Rectal Exam: deferred Back Exam: normal inspection, normal range of motion, No CVA tenderness, No vertebral tenderness Extremity Exam: normal inspection, normal range of motion Skin Exam: normal color, warm, dry Wound Assessment: Skin/Wound Assessment Wound/Incision Assessment Start: 04/01/24 01:31 Text: Status: Active Freq: Q6H Protocol: Document 04/01/24 07:31 RB (Rec: 04/01/24 08:16 RB [id number]) Wound/Incision Assessment Anterior/Posterior Wound Assessment Admission Wound Type bruises throughout randomly Wound Stage Non Pressure Wound Comment pt takes Plavix at home- REAMIN TRUE Wound Photo Photo Taken No Final Diagnosis/Problem List - Final Discharge Diagnosis/Problem (1) Lethargy Current Visit: Yes Status: Resolved Assessment & Plan: - resolved with IVF - 2:2 being in the sun and dehydration Code(s): R53.83 - OTHER FATIGUE (2) Hypomagnesemia Current Visit: Yes Status: Acute Assessment & Plan: - Mg+ 1.5- replaced. - Tele Code(s): E83.42 - HYPOMAGNESEMIA (3) Elevated troponin Current Visit: Yes Status: Acute Assessment & Plan: - Trop 0.031, 0.037, 0.039 - Likely 2:2 dehydration and heat - Pt denies CP - EKG - Chest XR: Poor inspiratory effort with crowding of the ribs noted. Sternotomy sutures and surgical clips represent CABG. Vital signs monitor cables projected over the chest. Borderline cardiomegaly is noted. Increased bronchovascular marking in th bilateral perihilar region with atelectatic bands/infiltrates in the bilateral lower zone, more on the left side. Calcification of the arch of aorta noted. Bilateral costophrenic angles are not sharp could be due to underlying subtle/minimal pleural effusion/projectional The bony thorax shows spondylotic changes. IMPRESSION: The above-mentioned findings could be due to early pulmonary edema/pulmonary infection . Advised clinical and lab correlation along with follow-up. Code(s): R79.89 - OTHER SPECIFIED ABNORMAL FINDINGS OF BLOOD CHEMISTRY (4) Lactate blood increase Current Visit: Yes Status: Acute Assessment & Plan: - Lactate 2.1 on admission- 1L fluid bolus gave in ER X2 - IVF continued- and stopped this AM - Pt has a hx of CHF with hx of recent admission for exacerbation. - Likely 2:2 dehydration and heat yesterday while fishing. Code(s): R79.89 - OTHER SPECIFIED ABNORMAL FINDINGS OF BLOOD CHEMISTRY (5) HTN (hypertension) Current Visit: Yes Status: Acute Assessment & Plan: - Will recheck BP after morning meds. Code(s): I10 - ESSENTIAL (PRIMARY) HYPERTENSION (6) CKD (chronic kidney disease) Current Visit: Yes Status: Acute Assessment & Plan: - At baseline - F/u OP with nephrology Code(s): N18.9 - CHRONIC KIDNEY DISEASE, UNSPECIFIED (7) Chronic anemia Current Visit: Yes Status: Acute Assessment & Plan: - 2:2 CKD - Hgb 10.8 stable Code(s): D64.9 - ANEMIA, UNSPECIFIED (8) COPD (chronic obstructive pulmonary disease) Current Visit: No Status: Chronic Assessment & Plan: - no acute exacerbation - RA 96% (9) DM w/o complication type II Current Visit: No Status: Chronic Assessment & Plan: - A1C 03/16/24 6.44- controlled - Continue metformin Code(s): E11.9 - TYPE 2 DIABETES MELLITUS WITHOUT COMPLICATIONS (10) CAD (coronary artery disease) Current Visit: Yes Status: Chronic Assessment & Plan: - Tele - Plavix, ASA, metoprolol, Torsemide - echo 03/16/24- EF45% Code(s): I25.10 - ATHSCL HEART DISEASE OF [place] CORONARY ARTERY W/O ANG PCTRS (11) Hyperlipidemia Current Visit: Yes Status: Chronic Assessment & Plan: - Continue statin Code(s): E78.5 - HYPERLIPIDEMIA, UNSPECIFIED - Discharge Discharge Date: 04/01/24 Disposition: Home, Self-Care Condition: Stable Prescriptions: Continue Ezetimibe 10 mg PO DAILY Clopidogrel Bisulfate [PLAVIX Tablet] 75 mg PO DAILY Allopurinol 100 mg [Zyloprim 100 mg] 200 mg PO DAILY Aspirin EC 81 mg [Ecotrin 81 mg] 81 mg PO DAILY Metformin HCl [Metformin HCl ER] 1,000 mg PO BID Atorvastatin Calcium 1 tab PO DAILY PANTOPRAZOLE 40 mg Tablet [Protonix 40MG Tablet] 1 tab PO BID Potassium Chloride 20 meq PO DAILY 30 Days #30 tablet Torsemide 20 mg [Demadex 20 mg] 40 mg PO DAILY 30 Days #60 tablet Metoprolol Succinate 50 mg [Toprol Xl 50 MG] 50 mg PO DAILY 30 Days #30 tablet Amlodipine Besylate 5 mg [Norvasc 5 mg] 5 mg PO DAILY 30 Days #30 tablet Follow up with: NICCI CLAROS MD [Primary Care Provider] -
[2024-04-01] MEDS: DEMADEX 20 MG PO SCH (11:15)
[2024-04-01] MEDS: Klor Con PO SCH (11:15)
[2024-04-01] MEDS: ZYLOPRIM 100 MG PO SCH (11:16)
[2024-04-01 11:29] VITALS: BP 134/81; PULSE 71; TEMP 97.3; O2SAT 93
[2024-04-01 14:34] VITALS: RESP 20
== END 2024-04-01 13:10 | disposition home or self-care (01) ==
LOC: ED 19:24 → MED SURG 04-01 00:03
PROVIDERS: ADMIT Internal Medicine Critical Care Medicine; ATTEND Internal Medicine Critical Care Medicine
DX: R53.83 Other fatigue (principal); E83.42 Hypomagnesemia; R79.89 Other specified abnormal findings of blood chemistry; E11.22 Type 2 diabetes mellitus with diabetic chronic kidney disease; I13.0 Hypertensive heart and chronic kidney disease with heart failure and stage 1 through stage 4 chronic kidney disease, or unspecified chronic kidney disease; N18.9 Chronic kidney disease, unspecified; I50.9 Heart failure, unspecified; D64.9 Anemia, unspecified; J44.9 Chronic obstructive pulmonary disease, unspecified; I25.10 Atherosclerotic heart disease of native coronary artery without angina pectoris; E78.5 Hyperlipidemia, unspecified; Z79.01 Long term (current) use of anticoagulants; Z79.899 Other long term (current) drug therapy; Z95.0 Presence of cardiac pacemaker
CPT/HCPCS: 36000; 36415; 70450; 71045; 80048; 80053; 81001; 82077; 82947; 83605; 83735; 84484; 85025; 85610; 85730; 93005; 93268; 99285; J1644; Q3014; A9270-GY; G0378; J3475

== ENCOUNTER 2024-05-07 17:13 | Observation (INO) | payer MEDICARE ==
--- NOTE | 2024-05-07 17:42 | ERPHSYRPT ---
- History of Present Illness Source: patient Exam Limitations: no limitations Patient Subjective Stated Complaint: Pt states "I have been not feeling well for a couple of days. My head hurts, my chest hurts, I am a little dizzy and my blood pressure was up." Triage Nursing Assessment: PT presented alert and oriented X 3, skin pwd. Pt able to speak in clear full sentences. PT resting comfortably on the bed. Hx Tetanus, Diphtheria Vaccination/Date Given: No Hx Influenza Vaccination/Date Given: No Hx Pneumococcal Vaccination/Date Given: No Immunizations Up to Date: No <ELLY WEEMS - Last Filed: 05/07/24 18:38> <KELBY GROSS - Last Filed: 05/07/24 23:31> - History of Present Illness Time Seen by Provider: 05/07/24 17:15 Physician History: Patient here with chest tightness, elevated blood pressure. He has not been feeling well for the past 2 to 3 days. Patient does have a extensive cardiac history. No falls or trauma. He has no fever or other neurological symptoms today. Patient was given aspirin, Nitropaste prior to arrival. Blood pressure has improved in the room. No longer hypertensive. (ELLY WEEMS) Allergies/Adverse Reactions: gabapentin Adverse Reaction (Verified 03/31/24 19:26) "got kind of loopy" Home Medications: Ezetimibe 10 mg PO DAILY 04/26/20 [History] Clopidogrel Bisulfate [PLAVIX Tablet] 75 mg PO DAILY 02/10/21 [History] Allopurinol 100 mg [Zyloprim 100 mg] 200 mg PO DAILY 06/06/21 [History] Aspirin EC 81 mg [Ecotrin 81 mg] 81 mg PO DAILY 10/23/22 [History] Metformin HCl [Metformin HCl ER] 1,000 mg PO BID 11/05/22 [History] Atorvastatin Calcium 1 tab PO DAILY 03/15/24 [History] PANTOPRAZOLE 40 mg Tablet [Protonix 40MG Tablet] 1 tab PO BID 03/15/24 [History] Travel Risk - International Travel Have you traveled outside of the country in past 3 weeks: No - Emerging Infectious Disease Are you exhibiting symptoms associated with any current EIDs: No Symptoms: Shortness of Breath <ELLY WEEMS - Last Filed: 05/07/24 18:38> - Past Medical History Pertinent Past Medical History: Yes Neurological History: No Pertinent History ENT History: No Pertinent History Cardiac History: Angina, Congestive Heart Failure, Coronary Artery Disease, High Cholesterol, Hypertension, Myocardial Infarction (MT) Respiratory History: COPD Endocrine Medical History: Diabetes Type II Musculoskeletal History: Osteoarthritis GI Medical History: No Pertinent History History: No Pertinent History Psycho-Social History: Depression Male Reproductive Disorders: No Pertinent History Other Medical History: fractured ribs, anemia, gout - Past Surgical History Past Surgical History: Yes Neuro Surgical History: No Pertinent History Cardiac: CABG, Cardiac Catheterization, Cardiac Stent, Other Respiratory: Chest Surgery Gastrointestinal: No Pertinent History Genitourinary: No Pertinent History Musculoskeletal: Orthopedic Surgery Male Surgical History: No Pertinent History Other Surgical History: umbilical, triple bypass, L shoulder. colon Significant Family History: no pertinent family hx - Social History Smoking Status: Former smoker How long have you smoked: 53 Exposure to second hand smoke: Yes Drug Use: none Patient Lives Alone: No - Social Determinants of Health Will the patient participate in the screening: Yes Do you worry about a steady place to live?: No Do you have any problems with any of the following?: No known problems In the past 12 months,have you had to go without utilities?: No Transportation Issues: No Has anyone in your support network made you feel unsafe?: No Have you or anyone in your house had to go without enough: No <ELLY WEEMS - Last Filed: 05/07/24 18:38> - Physical Exam SpO2: 95 <ELLY WEEMS - Last Filed: 05/07/24 18:38> - Nursing Vital Signs Nursing Vital Signs: Initial Vital Signs Temperature 97.9 F 05/07/24 17:17 Pulse Rate 88 05/07/24 17:17 Respiratory Rate 20 05/07/24 17:17 Blood Pressure 139/80 05/07/24 17:17 O2 Sat by Pulse Oximetry 95 05/07/24 17:17 Pain Scale Pain Intensity 2 - Physical Exam Comments: 05/07/24 17:40 Review of Systems Constitutional: Negative for fever. HENT: Negative for congestion. Respiratory: Negative for shortness of breath. Cardiovascular: Chest pain, chest tightness, high blood pressure Gastrointestinal: Negative for abdominal pain. Genitourinary: Negative for dysuria. Musculoskeletal: Negative for back pain. Skin: Negative for rash. Neurological: Negative for headaches. Psychiatric/Behavioral: Negative for behavioral problems. All other systems reviewed and are negative. Physical Exam Vitals signs and nursing note reviewed. Constitutional: Appearance: Patient is well-developed. HENT: Head: Normocephalic and atraumatic. Eyes: Conjunctiva/sclera: Conjunctivae normal. Neck: Musculoskeletal: Normal range of motion. Trachea: No tracheal deviation. Cardiovascular: Rate and Rhythm: Normal rate. Pulmonary: Effort: Pulmonary effort is normal. No respiratory distress. Abdominal: Palpations: Abdomen is soft. Musculoskeletal: General: No deformity. Skin: General: Skin is warm and dry. Neurological/ Psychiatric: Mental Status: Mental status, behavior, interaction with environment is appropriate for patient's age and condition (ELLY WEEMS) - Course Nursing assessment & vital signs reviewed: Yes EKG Interpreted by Me: Sinus Rhythm, Left Bundle Branch Block, NORMAL ST-T (EKG demonstrates sinus rhythm, rate 87, left bundle branch block, no other signs of ischemic ST changes) <ELLY WEEMS - Last Filed: 05/07/24 18:38> - Radiology Exams Chest X-ray Interpretation: Teleradiologist Report (No acute cardiopulmonary abnormality. See rest of report.) - CT Exams Chest CT Interpretation: Tele-radiologist Report (No CT evidence of PE. No acute pathology in the lungs and mediastinum.) Head CT Interpretation: Tele-radiologist Report (No acuter intracranial hemorrhage or mass effect. See rest of report.) <KELBY GROSS - Last Filed: 05/07/24 23:31> Ordered Tests: Active Orders 24 hr Category Date Time Status Furnace Door Tender STAT Care 05/07/24 17:32 Active EKG-ER Only STAT Care 05/07/24 17:31 Active EKG-ER Only STAT Care 05/07/24 21:43 Active IV Insertion STAT Care 05/07/24 17:31 Active CHEST 1 VIEW (PORTABLE) Stat Exams 05/07/24 17:32 Completed CHEST WITH CONTRAST [CT] Stat Exams 05/07/24 18:19 Completed HEAD WITHOUT CONTRAST [CT] Stat Exams 05/07/24 18:19 Completed CBC W DIFF Stat Lab 05/07/24 17:53 Completed CK-Creatinine Phosphokinase Stat Lab 05/07/24 17:53 Completed CMP Stat Lab 05/07/24 17:53 Completed MAGNESIUM Stat Lab 05/07/24 17:28 Completed NT PRO BNPII Stat Lab 05/07/24 17:53 Completed TROPONIN Q4H Lab 05/07/24 17:53 Completed TROPONIN Q4H Lab 05/07/24 22:00 Completed TROPONIN Q4H Lab 05/08/24 01:45 Ordered Transfer Order Routine Transfer 05/07/24 Ordered Medication Summary Discontinued Medications Generic Name Dose Route Start Last Admin Trade Name Esther PRN Reason Stop Dose Admin Acetaminophen 1,000 mg in 100 mls @ 400 mls/hr 05/07/24 20:19 05/07/24 21:58 Ofirmev IV 05/07/24 20:33 400 mls/hr 1HRPRIOR ONE Administration Acetaminophen Confirm 05/07/24 21:47 Ofirmev Administered 05/07/24 21:48 Dose 100 mls @ ud IV .STK-MED ONE Lab/Rad Data: Laboratory Result Diagrams 05/07/24 17:53 05/07/24 17:53 Laboratory Results 05/07/24 05/07/24 05/07/24 Range/Units 22:00 17:53 17:53 WBC (4.23-9.07) x10^3/uL RBC (4.63-6.08) x10^6/uL Hgb (13.7-17.5) g/dL Hct (40.1-51.0) % MCV (79.0-92.2) fL MCH (25.7-32.2) pg MCHC (32.3-36.5) g/dL RDW (11.6-14.4) % Plt Count (163-337) x10^3/uL MPV (9.4-12.4) fL Gran % (34.0-67.9) % Immature Gran % (Auto) (0.001-0.429) % Nucleat RBC Rel Count (0.00-0.2) % Eos # (Auto) (0.04-0.54) x10^3/uL Immature Gran # (Auto) (0.001-0.031) x10^3u/L Absolute Lymphs (auto) (1.32-3.57) x10^3/uL Absolute Monos (auto) (0.30-0.82) x10^3/uL Absolute Nucleated RBC (0.00-0.012) x10^3u/L Lymphocytes % (21.8-53.1) % Monocytes % (5.3-12.2) % Eosinophils % (0.8-7.0) % Basophils % (0.2-1.2) % Absolute Granulocytes (1.78-5.38) x10^3/uL Basophils # (0.01-0.08) x10^3/uL Sodium 140 (135-145) mmol/L Potassium 4.1 (3.5-5.1) mmol/L Chloride 109 H (98-107) mmol/L Carbon Dioxide 27 (22-30) mmol/L Anion Gap 7.7 (5-15) MEQ/L BUN 29 H (9-20) mg/dL Creatinine 1.47 H (0.66-1.25) mg/dL Estimated GFR 52.0 ML/MIN Glucose 94 (74-106) mg/dL Calcium 8.5 (8.4-10.2) mg/dL Magnesium (1.6-2.3) mg/dL Total Bilirubin 0.50 (0.2-1.3) mg/dL AST 27 (17-59) U/L ALT 16 (0-50) U/L Alkaline Phosphatase 108 (38-126) U/L Creatine Kinase 79 (55-170) U/L Troponin I 0.019 0.018 (0.000-0.033) ng/mL NT-Pro-B Natriuret Pep 87407 (<300) pg/mL Serum Total Protein 5.6 L (6.3-8.2) g/dL Albumin 2.9 L (3.5-5.0) g/dL 05/07/24 05/07/24 Range/Units 17:53 17:28 WBC 5.4 (4.23-9.07) x10^3/uL RBC 3.49 L (4.63-6.08) x10^6/uL Hgb 9.8 L (13.7-17.5) g/dL Hct 32.3 L (40.1-51.0) % MCV 92.6 H (79.0-92.2) fL MCH 28.1 (25.7-32.2) pg MCHC 30.3 L (32.3-36.5) g/dL RDW 14.6 H (11.6-14.4) % Plt Count 168 (163-337) x10^3/uL MPV 11.4 (9.4-12.4) fL Gran % 91.7 H (34.0-67.9) % Immature Gran % (Auto) 0.2 (0.001-0.429) % Nucleat RBC Rel Count 0.0 (0.00-0.2) % Eos # (Auto) 0.06 (0.04-0.54) x10^3/uL Immature Gran # (Auto) 0.01 (0.001-0.031) x10^3u/L Absolute Lymphs (auto) 0.13 L (1.32-3.57) x10^3/uL Absolute Monos (auto) 0.25 L (0.30-0.82) x10^3/uL Absolute Nucleated RBC 0.00 (0.00-0.012) x10^3u/L Lymphocytes % 2.4 L (21.8-53.1) % Monocytes % 4.6 L (5.3-12.2) % Eosinophils % 1.1 (0.8-7.0) % Basophils % 0.0 L (0.2-1.2) % Absolute Granulocytes 4.98 (1.78-5.38) x10^3/uL Basophils # 0 L (0.01-0.08) x10^3/uL Sodium (135-145) mmol/L Potassium (3.5-5.1) mmol/L Chloride (98-107) mmol/L Carbon Dioxide (22-30) mmol/L Anion Gap (5-15) MEQ/L BUN (9-20) mg/dL Creatinine (0.66-1.25) mg/dL Estimated GFR ML/MIN Glucose (74-106) mg/dL Calcium (8.4-10.2) mg/dL Magnesium 1.7 (1.6-2.3) mg/dL Total Bilirubin (0.2-1.3) mg/dL AST (17-59) U/L ALT (0-50) U/L Alkaline Phosphatase (38-126) U/L Creatine Kinase (55-170) U/L Troponin I (0.000-0.033) ng/mL NT-Pro-B Natriuret Pep (<300) pg/mL Serum Total Protein (6.3-8.2) g/dL Albumin (3.5-5.0) g/dL - Progress Progress: improved Counseled pt/family regarding: lab results, diagnosis, need for follow-up, rad results <ELLY WEEMS - Last Filed: 05/07/24 18:38> - Progress Discussed with DrCassandra: Hollis (Spoke with & discussed case with Dr. Pa([id number]) - obs) <KELBY GROSS - Last Filed: 05/07/24 23:31> - Progress Progress Note: 05/07/24 17:41 Differential diagnosis includes: PNA, STEMI, NSTEMI, other infection, musculoskeletal pain, pneumothorax - We'll obtain basic labs, fluids, EKG, troponin, chest x-ray - EKG shows no ST changes - my read - O2 saturations consistently greater than 95%. 05/07/24 18:39 Patient has elevated BNP, troponin still pending at this point in time. We did get a CT scan of the chest as well to rule out any pulmonary embolism, aortic dissection, other cause of chest pain. Head CT also pending for patient's headache. Patient will be checked out to Dr. Gross at 7 PM. He will follow-up on all labs, imaging. Patient will most likely need to be admitted for full chest pain rule out, CHF exacerbation in the setting of chest pain with elevated BNP. Discussed case in detail, Dr. Gross to follow-up as above and reexamine patient. (ELLY WEEMS) 05/07/24 19:[address] Gross @ 1941: perrl, eomi, TM's not injected, pharynx pink, lungs clear, 2/6 systolic murmur, abdominal B.S. normal, alert & cooperative.l 05/07/24 22:46 EKG @ 2242: rate=82, sinus rhythm, LBBB, OUg=246. (KELBY GROSS) - Departure Critical Care Time: No <ELLY WEEMS - Last Filed: 05/07/24 18:38> <KELBY GROSS - Last Filed: 05/07/24 23:31> - Departure Clinical Impression: Elevated brain natriuretic peptide (BNP) level, Chest pain, Shortness of breath Condition: Stable Referrals: NICCI CLAROS MD [Primary Care Provider] - Follow up/PCP as directed
[2024-05-07 17:55] LABS: Absolute Neutrophil Ct (ANC) 4.98 x10^3/uL (1.78-5.38); Basophil (Absolute #) 0 x10^3/uL (0.01-0.08); Eosinophil % 1.1 % (0.8-7.0); Eosinophil (Absolute #) 0.06 x10^3/uL (0.04-0.54); Hematocrit 32.3 % (40.1-51.0); Hemoglobin 9.8 g/dL (13.7-17.5); IMMATURE GRAN # 0.01 x10^3u/L (0.001-0.031); IMMATURE GRAN % 0.2 % (0.001-0.429); Lymphocyte (Absolute #) 0.13 x10^3/uL (1.32-3.57); Lymphocytes % 2.4 % (21.8-53.1); Mean Cell Volume 92.6 fL (79.0-92.2); Mean Corpuscular Hemoglobin 28.1 pg (25.7-32.2); Mean Corpuscular Hgb Concent. 30.3 g/dL (32.3-36.5); Mean Platelet Volume 11.4 fL (9.4-12.4); Monocyte (Absolute #) 0.25 x10^3/uL (0.30-0.82); Monocytes % 4.6 % (5.3-12.2); Neutrophil % 91.7 % (34.0-67.9); Platelet Count 168 x10^3/uL (163-337); Red Blood Count 3.49 x10^6/uL (4.63-6.08); Red Cell Distribution Width 14.6 % (11.6-14.4); White Blood Count 5.4 x10^3/uL (4.23-9.07)
[2024-05-07 18:11] LABS: ALBUMIN 2.9 g/dL (3.5-5.0); ANION GAP 7.7 MEQ/L (5-15); BILIRUBIN,TOTAL 0.5 mg/dL (0.2-1.3); Calcium 8.5 mg/dL (8.4-10.2); Creatinine 1 1.47 mg/dL (0.66-1.25); Potassium 4.1 mmol/L (3.5-5.1); Total Protein 5.6 g/dL (6.3-8.2)
--- NOTE | 2024-05-07 19:07 | XRAY ---
CLINICAL HISTORY: PNA COMPARISON: 03/31/2024 x-ray of the chest. TECHNIQUE: X-ray of chest in AP view, portable. FINDINGS: Median sternotomy and mediastinal sutures are present. The cardiac silhouette is at the largest dimension. Two nodular opacities are noted in the right lower zone, measuring 5 mm and 3 mm, likely representing old granuloma. Increased bronchovascular marking in both perihilar regions. Calcification of the arch of the aorta noted. Mild blunting of the right costophrenic angle. The left costophrenic angle is sharp. The left hemidiaphragm is relatively elevated. The bony thorax shows spondylotic changes. IMPRESSION: 1. No acute cardiopulmonary abnormality 2. Mild blunting of the right costophrenic angle, likely due to small pleural effusion 3. Prominent perihilar/bronchovascular markings, possibly secondary to pulmonary congestion.Clinical/laboratory correlation is advised. 4. Two millimetric nodular opacities in the right lower zone, likely old granuloma, with no interval change compared to the 03/31/2024 x-ray of chest imaging Electronically Signed by: Lon Kamara MD. (05/07/2024 19:02:38 EDT)
--- NOTE | 2024-05-07 20:32 | XRAY ---
CLINICAL HISTORY: PE, SOB, CP COMPARISON: Prior chest radiograph dated March 31, 2024 TECHNIQUE: CT angiography study of pulmonary arteries for PE was performed with IV contrast. 80 cc Isovue 370mg/ml was administered as IV contrast. One of the following dose reduction techniques was utilized for this exam: Automated exposure control, adjustment of the mA and/or kV according to patient size, and use of iterative reconstruction. One of these 3D techniques was utilized: Maximum Intensity Pixel (MIP), 3D Reconstructed Images, Volume Rendered Images, Surface Shaded Rendering. DLP: 1541.82mGy-cm FINDINGS: The pulmonary artery, segmental, and subsegmental branches are normal. No CT evidence of pulmonary embolic disease. No right heart strain. Calcified subpleural and perifissural granulomas are seen in the right lower lobe. No concerning lung nodules, mass, or consolidation. No interstitial edema. No pleural effusions. No acute mediastinal abnormality. Mild cardiomegaly, no pericardial effusion. Nonaneurysmal thoracic aorta. A few subcentimeter mediastinal lymph nodes, nonspecific, appear reactive. No enlarged axillary or supraclavicular lymph nodes. Unremarkable soft tissues. No aggressive osseous lesions. No concerning findings in the visualized upper abdomen. There is reflux of contrast in the IVC and hepatic veins which is a nonspecific finding. IMPRESSION: No CT evidence of pulmonary embolic disease. No acute pathology in the lungs and mediastinum. Electronically Signed by: Lon Kamara MD. (05/07/2024 20:27:06 EDT)
--- NOTE | 2024-05-07 20:47 | XRAY ---
CLINICAL HISTORY: headache COMPARISON: 03/31/2024 CT of head TECHNIQUE: An axial non-contrast CT scan of the brain was performed from the skull base to the high parietal region. One of the following dose reduction techniques were utilized for this exam: Automated exposure control, adjustment of the mA and/or kV according to patient size, use of iterative reconstruction. CTDI: 53.92, DLP:1058.31. FINDINGS: Brain Parenchyma: Bilateral symmetrical calcifications are noted in the globus pallidus and hippocampal locations. A focal hypodensity is seen in the right smith radiata extending to involve the posterior timbo of the external capsule. A few hypodense areas in the periventricular white matter represent chronic microvascular ischemic changes. Otherwise, normal attenuation of the cerebral hemispheres, cerebellum, and brainstem. There is no evidence of acute infarct, hemorrhage, or mass effect. Right vertebral artery and bilateral ICA calcified atherosclerotic changes observed. Ventricular System: Ventricles are normal in size and configuration. No evidence of hydrocephalus or ventricular enlargement. Subarachnoid Spaces: Normal sulci and cisterns. No evidence of subarachnoid hemorrhage or extra-axial fluid collections. Cerebellum and Brainstem: Normal size and signal. No masses, lesions, or areas of abnormal signal. Orbits: Normal appearance of the globes, optic nerves, and extraocular muscles. No evidence of orbital masses or abnormal signal. Sinuses: Clear paranasal sinuses. No evidence of sinusitis or mucosal thickening. Mastoid Air Cells: Clear mastoid air cells. No evidence of mastoiditis. Skull and Meninges: Normal skull morphology. No evidence of meningeal thickening. Falx cerebri calcifications noted. IMPRESSION: 1. 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 2. No acute intracranial hemorrhage or mass effect. 3. compared to the previous no significant interval change is seen. Electronically Signed by: Lon Kamara MD. (05/07/2024 20:43:24 EDT)
[2024-05-07] MEDS ORDERED: OFIRMEV 100 ML IV ONE (21:47)
[2024-05-07] MEDS: OFIRMEV 1,000 MG/100 ML ML IV ONE (21:58)
--- NOTE | 2024-05-08 00:36 | PCM.HP ---
History of Present Illness - Chief Complaint Chief Complaint: dizziness Date: 05/07/24 History of Present Illness: 68 y/o M with h/o HFrEF, CAD (s/p 2vCABG, follows with Dr. Taylor), NIDDM2, COPD not on oxygen, CKD3, and HTN, who presents with a few days of headache, di zziness, and difficulty walking. initially this was relieved after a nap and some Alevel. But he noted difficulty with standing up, causing dizziness and almost falling twice today, so came to the ED. He denies vertigo, nausea, or full syncope. He did not initially report having any chest pain to me (which was the admitting reason from the ED), but upon questioning, stated had some right- sided intermittent chest pain, where he recently fell, worse with bending over, aching and burning and nature, not worse with exertion, not associated with diaphoresis, dyspnea, or numbness. He reported some dyspnea on waking this morning, but no chest pain at that time. He has run out of some of this medications 3-4 days ago, but he is unsure which. He was waiting for his Medicaid to kick in, which only started today. He is unsure which medications he was able to take today, and did not bring his medications with him, although he noted he has been taking his Torsemide as 20 BID instead of the prescribed 40 daily. Of note, patient was admitted for one week last month with pneumonia and worsening of EF, now with systolic heart failure. He was diuresed and discharged. He was also admitted for one day at the end of the month for fatigue, discharging home after getting magnesium replacement. - Review of Systems All Other Systems: Reviewed and Negative Medications & Allergies Home Medications: Home Medication List Ezetimibe 10 mg PO DAILY 04/26/20 [History Confirmed 03/31/24] Clopidogrel Bisulfate [PLAVIX Tablet] 75 mg PO DAILY 02/10/21 [History Confirmed 03/31/24] Allopurinol 100 mg [Zyloprim 100 mg] 200 mg PO DAILY 06/06/21 [History Confirmed 03/31/24] Aspirin EC 81 mg [Ecotrin 81 mg] 81 mg PO DAILY 10/23/22 [History Confirmed 03/31/24] Metformin HCl [Metformin HCl ER] 1,000 mg PO BID 11/05/22 [History Confirmed 03/31/24] Atorvastatin Calcium 1 tab PO DAILY 03/15/24 [History Confirmed 03/31/24] PANTOPRAZOLE 40 mg Tablet [Protonix 40MG Tablet] 1 tab PO BID 03/15/24 [History Confirmed 03/31/24] Potassium Chloride 20 meq PO DAILY 30 Days #30 tablet 03/17/24 [Rx Confirmed 03/31/24] Amlodipine Besylate 5 mg [Norvasc 5 mg] 5 mg PO DAILY 30 Days #30 tablet 03/22/24 [Rx Confirmed 03/31/24] Metoprolol Succinate 50 mg [Toprol Xl 50 MG] 50 mg PO DAILY 30 Days #30 tablet 03/22/24 [Rx Confirmed 03/31/24] Torsemide 20 mg [Demadex 20 mg] 40 mg PO DAILY 30 Days #60 tablet 03/22/24 [Rx Confirmed 03/31/24] Allergies/Adverse Reactions: Allergies Allergy/AdvReac Type Severity Reaction Status Date / Time gabapentin AdvReac Verified 03/31/24 19:26 - Past Medical History Past Medical History: Yes Neurological History: No Pertinent History ENT History: No Pertinent History Cardiac History: Angina, Congestive Heart Failure, Coronary Artery Disease, High Cholesterol, Hypertension, Myocardial Infarction ([place]) Respiratory History: COPD Endocrine Medical History: Diabetes Type II Musculoskelatal History: Osteoarthritis GI Medical History: No Pertinent History History: No Pertinent History Pyscho-Social History: Depression Male Reproductive Disorders: No Pertinent History Comment: fractured ribs, anemia, gout - Past Surgical History Past Surgical History: Yes Neuro Surgical History: No Pertinent History Cardiac History: CABG, Cardiac Catheterization, Cardiac Stent, Other Respiratory Surgery: Chest Surgery GI Surgical History: No Pertinent History Genitourinary Surgical Hx: No Pertinent History Musculskeletal Surgical Hx: Orthopedic Surgery Male Surgical History: No Pertinent History Other Surgical History: umbilical, triple bypass, L shoulder. colon Significant Family History: no pertinent family hx - Social History Smoking Status: Former smoker How long have you smoked: 53 Exposure to second hand smoke: Yes Alcohol: Rarely Drug Use: none - Social Determinants of Health Will the patient participate in the screening: Yes Do you worry about a steady place to live?: No Do you have any problems with any of the following?: No known problems In the past 12 months,have you had to go without utilities?: No Have you or anyone in your house had to go without enough: No Transportation Issues: No Has anyone in your support network made you feel unsafe?: No Does the patient want assistance with any of the above?: No - Physical Exam Vital Signs: Vital Signs - 24 hr Temp Pulse Resp BP BP Pulse Ox 05/07/24 23:30 76 17 133/68 95 05/07/24 23:00 78 18 160/97 97 05/07/24 22:30 68 17 154/83 95 05/07/24 22:00 70 18 159/90 94 L 05/07/24 21:30 74 19 151/86 96 05/07/24 21:00 78 16 176/96 95 05/07/24 20:30 76 19 159/92 96 05/07/24 20:00 90 16 159/91 96 05/07/24 19:30 89 17 175/103 95 05/07/24 19:27 91 H 18 171/94 96 05/07/24 18:40 95 05/07/24 18:30 92 H 18 149/75 96 05/07/24 18:00 85 25 H 139/72 05/07/24 17:30 82 16 122/78 93 L 05/07/24 17:18 87 18 139/80 94 L 05/07/24 17:17 97.9 F 88 20 139/80 95 General Appearance: no apparent distress Neurologic Exam: alert, oriented x 3 Respiratory Exam: normal breath sounds, lungs clear, No respiratory distress Cardiovascular Exam: regular rate/rhythm, No murmur, No edema Gastrointestinal/Abdomen Exam: normal bowel sounds, No tenderness, No distention Results - Labs Lab/Micro Results: Lab Results-Last 24 Hours 05/07/24 05/07/24 05/07/24 Range/Units 17:28 17:53 17:53 WBC 5.4 (4.23-9.07) x10^3/uL RBC 3.49 L (4.63-6.08) x10^6/uL Hgb 9.8 L (13.7-17.5) g/dL Hct 32.3 L (40.1-51.0) % MCV 92.6 H (79.0-92.2) fL MCH 28.1 (25.7-32.2) pg MCHC 30.3 L (32.3-36.5) g/dL RDW 14.6 H (11.6-14.4) % Plt Count 168 (163-337) x10^3/uL MPV 11.4 (9.4-12.4) fL Gran % 91.7 H (34.0-67.9) % Immature Gran % (Auto) 0.2 (0.001-0.429) % Nucleat RBC Rel Count 0.0 (0.00-0.2) % Eos # (Auto) 0.06 (0.04-0.54) x10^3/uL Immature Gran # (Auto) 0.01 (0.001-0.031) x10^3u/L Absolute Lymphs (auto) 0.13 L (1.32-3.57) x10^3/uL Absolute Monos (auto) 0.25 L (0.30-0.82) x10^3/uL Absolute Nucleated RBC 0.00 (0.00-0.012) x10^3u/L Lymphocytes % 2.4 L (21.8-53.1) % Monocytes % 4.6 L (5.3-12.2) % Eosinophils % 1.1 (0.8-7.0) % Basophils % 0.0 L (0.2-1.2) % Absolute Granulocytes 4.98 (1.78-5.38) x10^3/uL Basophils # 0 L (0.01-0.08) x10^3/uL Sodium 140 (135-145) mmol/L Potassium 4.1 (3.5-5.1) mmol/L Chloride 109 H (98-107) mmol/L Carbon Dioxide 27 (22-30) mmol/L Anion Gap 7.7 (5-15) MEQ/L BUN 29 H (9-20) mg/dL Creatinine 1.47 H (0.66-1.25) mg/dL Estimated GFR 52.0 ML/MIN Glucose 94 (74-106) mg/dL Calcium 8.5 (8.4-10.2) mg/dL Magnesium 1.7 (1.6-2.3) mg/dL Total Bilirubin 0.50 (0.2-1.3) mg/dL AST 27 (17-59) U/L ALT 16 (0-50) U/L Alkaline Phosphatase 108 (38-126) U/L Creatine Kinase 79 (55-170) U/L Troponin I (0.000-0.033) ng/mL NT-Pro-B Natriuret Pep 60758 (<300) pg/mL Serum Total Protein 5.6 L (6.3-8.2) g/dL Albumin 2.9 L (3.5-5.0) g/dL 05/07/24 05/07/24 Range/Units 17:53 22:00 WBC (4.23-9.07) x10^3/uL RBC (4.63-6.08) x10^6/uL Hgb (13.7-17.5) g/dL Hct (40.1-51.0) % MCV (79.0-92.2) fL MCH (25.7-32.2) pg MCHC (32.3-36.5) g/dL RDW (11.6-14.4) % Plt Count (163-337) x10^3/uL MPV (9.4-12.4) fL Gran % (34.0-67.9) % Immature Gran % (Auto) (0.001-0.429) % Nucleat RBC Rel Count (0.00-0.2) % Eos # (Auto) (0.04-0.54) x10^3/uL Immature Gran # (Auto) (0.001-0.031) x10^3u/L Absolute Lymphs (auto) (1.32-3.57) x10^3/uL Absolute Monos (auto) (0.30-0.82) x10^3/uL Absolute Nucleated RBC (0.00-0.012) x10^3u/L Lymphocytes % (21.8-53.1) % Monocytes % (5.3-12.2) % Eosinophils % (0.8-7.0) % Basophils % (0.2-1.2) % Absolute Granulocytes (1.78-5.38) x10^3/uL Basophils # (0.01-0.08) x10^3/uL Sodium (135-145) mmol/L Potassium (3.5-5.1) mmol/L Chloride (98-107) mmol/L Carbon Dioxide (22-30) mmol/L Anion Gap (5-15) MEQ/L BUN (9-20) mg/dL Creatinine (0.66-1.25) mg/dL Estimated GFR ML/MIN Glucose (74-106) mg/dL Calcium (8.4-10.2) mg/dL Magnesium (1.6-2.3) mg/dL Total Bilirubin (0.2-1.3) mg/dL AST (17-59) U/L ALT (0-50) U/L Alkaline Phosphatase (38-126) U/L Creatine Kinase (55-170) U/L Troponin I 0.018 0.019 (0.000-0.033) ng/mL NT-Pro-B Natriuret Pep (<300) pg/mL Serum Total Protein (6.3-8.2) g/dL Albumin (3.5-5.0) g/dL - Radiology Impressions Radiology Exams & Impressions: Radiology Procedures Category Date Time Status CHEST 1 VIEW (PORTABLE) Stat Exams 05/07/24 17:32 Completed CHEST WITH CONTRAST [CT] Stat Exams 05/07/24 18:19 Completed HEAD WITHOUT CONTRAST [CT] Stat Exams 05/07/24 18:19 Completed CXR - mild hilar fullness, no cephalization. No effusion or consolidation (images personally reviewed) CT Chest contrast - No PE. No effusions. 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 No acute hemorrahge or mass effect. Assessment/Plan (1) Chest pain Current Visit: Yes Status: Acute Assessment & Plan: 68 y/o M with h/o CAD, DM2, HTN, COPD, HTN, CKD, and likely PRASHANT, here with chest pain, but his main complaint is dizziness. . ## Chest pain - atypical chest pain for ACS. As well, chest pain has been pre sent for a few days; if true ACS, almost certainly would see elevation in [place] by this point. EKG shows LBBB, unchanged from prior EKG reviewed from last month. Initial troponins normal x2. Risk score for ACS is low, although has h/o prior CAD s/p 2vCABG. 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 Taylor in [place] ## lightheadedness - appears more orthostatic than vertigo. Patient was started on torsemide one month ago (although unclear if has been taking the past few days since some of his medications ran out.) Although volume status looks clinically improved from one month ago, and Cr improved, perhaps a little over- diuresed? He denies - hold off on torsemide tonight - can resume tomorrow as patient was taking at home - Torsemide 20 BID - check orthostatic VS in the morning, and perhaps tweak torsemide dose lower for going home. ## Headache - not meeting emergent criteria, and no h/o migraines. CT head without acute changes. - PRN Tylenol ## CKD stage 3 - Baseline unclear. Patient in 2022 had Cr down to 1.2, but throughout stay last month was 1.8-2. .Now down to 1.5 today, appears to be improving despite starting torsemide during the last stay. Overall improving. - repeat BMP in AM - would like to start losartan for GDMT for CHF as well as benefit for prev enting progression of diabetic nephropathy; patient recently referred to shower enclosure installer, so can consider waiting for that appointment to begin ACEi/ARB ## DM2 - not requiring insulin at home. Last HbA1c 6.4 in March. - hold home oral hyperglycemic meds - cover with low-dose sliding scale insulin ## Chronic systolic heart failure - EF 30-35% on TTE last month. Aggressively diuresed during that visit. ProBNP is elevated today, but down from levels during last visit (35k -> 15k). As well, clinically euvolemic on exam, no pulmonary edema seen on CT chest. Perhaps a little over-diuresed, based on r eported orthostatic symptoms? - continue home torsemid 20 mg BID - continue Toprol XL 50 mg daily - not started on losartan last visit due to MOOKIE, but Cr improving now; see discussion of starting under CKD3 above - consider adjust torsemide dose as above (see lightheadedness above) ## Hypertension - well-controlled on arrival, although some elevations when having headache. Possibly more elevated as well due to inability to get home meds recently. - continue Norvasc 5 daily - if needs additional BP meds, would likely try to start losartan 25 (see discussion above re: CKD, CHF) ## CAD - s/p 2vCABG. - continue aspirin 81, Plavix 75, metoprolol XL 50, atorvastatin 40 ## Chronic normocytic anemia - reviewed prior records, and Hb has been between 9-11 since 2019. At that time, iron levels were low-normal, and B12 normal. Does not appear to have had any further workup, but also no progression. Not on medications that are known to be myelosuppressive, and no known medical history that would explain. - would benefit from further workup as outpatient, including reticulocyte count, repeat iron studies, when stable, with possible bone marrow biopsy if unexplained after this much time Code status: DNR Prophylaxis: no indication; Emigdio score only 1, and short stay Diet: Diabetic Code(s): R07.9 - CHEST PAIN, UNSPECIFIED Telemedicine Encounter - Telemedicine Encounter Telemedicine Encounter: "The entirety of this encounter was performed via Telemedicine" This visit was performed using real-time audio and video connection between my location and thepatients locationwith the assistance of a surrogateat the patients location. Written or verbal consent was obtained from the patient/guardian to perform this visit [facility]. Any patient questions regarding the telemedicine interaction were answered.
[2024-05-08] MEDS ORDERED: TYLENOL 325 MG PO PRN (00:37)
[2024-05-08 04:54] LABS: Hematocrit 29.6 % (40.1-51.0); Hemoglobin 9.1 g/dL (13.7-17.5); Mean Cell Volume 93.7 fL (79.0-92.2); Mean Corpuscular Hemoglobin 28.8 pg (25.7-32.2); Mean Corpuscular Hgb Concent. 30.7 g/dL (32.3-36.5); Mean Platelet Volume 11.1 fL (9.4-12.4); Platelet Count 157 x10^3/uL (163-337); Red Blood Count 3.16 x10^6/uL (4.63-6.08); Red Cell Distribution Width 14.6 % (11.6-14.4); White Blood Count 3.8 x10^3/uL (4.23-9.07)
[2024-05-08 05:16] LABS: ANION GAP 8.7 MEQ/L (5-15); Calcium 8.1 mg/dL (8.4-10.2); Creatinine 1 1.49 mg/dL (0.66-1.25); EST GLOMERULAR FILTRATION RATE 51.1 ML/MIN; PREALBUMIN 16.44 mg/dL (17.6-36.0); Potassium 3.8 mmol/L (3.5-5.1)
[2024-05-08] MEDS ORDERED: NON-FORMULARY ITEM (Potassium Chloride [Potassium Chloride] 20 MEQ Tab.Er.Prt) PO SCH (10:00)
[2024-05-08] MEDS ORDERED: NON-FORMULARY ITEM (Atorvastatin Calcium [Atorvastatin Calcium] 10 MG Tablet) PO SCH (10:00)
[2024-05-08] MEDS: ZYLOPRIM 100 MG PO SCH (10:56)
[2024-05-08] MEDS: Zocor 10MG PO SCH (10:56)
[2024-05-08] MEDS: PLAVIX Tablet PO SCH (10:56)
[2024-05-08] MEDS: Klor Con PO SCH (10:56)
[2024-05-08] MEDS: ECOTRIN 81 MG PO SCH (10:56)
[2024-05-08] MEDS: DEMADEX 20 MG PO SCH (10:56)
[2024-05-08] MEDS: Toprol Xl 50 MG PO SCH (10:56)
[2024-05-08] MEDS: Protonix 40MG Tablet PO SCH (10:56)
[2024-05-08] MEDS: NORVASC 5 MG PO SCH (10:56)
--- NOTE | 2024-05-08 10:57 | PCM.NOTE ---
Date and Time: 05/08/24 1046 Subjective Assessment: 05/08/24 68 y/o M with h/o HFrEF, CAD (s/p 2vCABG, follows with Dr. Taylor), NIDDM2, COPD not on oxygen, CKD3, and HTN. He presented on 05/07/24 to ER with a few days of headache, dizziness, and difficulty walking. Initially this was relieved after a nap and some Aleve. But he noted difficulty with standing up, causing dizziness and almost falling twice today, so came to the ED. He denies vertigo, nausea, or full syncope. He did not initially report having any chest pain (which was the admitting reason from the ED), but upon questioning, stated had some right-sided intermittent chest pain, where he recently fell, worse with bending over, aching and burning and nature, not worse with exertion, not associated with diaphoresis, dyspnea, or numbness. He reported some dyspnea on waking this morning, but no chest pain at that time. He has run out of some of this medications 3-4 days ago, but he is unsure which. He was waiting for his Medicaid to kick in, which only started today. He is unsure which medications he was able to take today, and did not bring his medications with him, although he noted he has been taking his Torsemide as 20 BID instead of the prescribed 40 daily. Of note, patient was admitted for one week last month with pneumonia and worsening of EF, now with systolic heart failure. He was diuresed and discharged. He was also admitted for one day at the end of the month for fatigue, discharging home after getting magnesium replacement. Case management to assist with meds needed. He likely will need ACO assistance. Since he now has insurance getting his meds should not be a problem. Echo scheduled for today, previous EF 30-35%. + orthostats this AM. CXR shows small right pleual effusion. Will continue toresimide, restart his meds. If improved may d/c home tomorrow. He denies CP but states he has right lower rib pain from a fall 2 weeks ago. He has no bruising and no rib fx seen on CXR, will order rib XR's Chest CT negative for pleural effusion. He denies SOB, abd. pain, N/V/D. - Review of Systems Constitutional: No Fever, No Chills Eyes: No Symptoms Ears, Nose, & Throat: No Symptoms Respiratory: Other (rib pain right lower region), No Cough, No Short Of Breath Cardiac: No Chest Pain, No Edema, No Syncope Abdominal/Gastrointestinal: No Abdominal Pain, No Nausea, No Vomiting, No Diarrhea Genitourinary Symptoms: No Dysuria Musculoskeletal: No Back Pain, No Neck Pain Skin: Skin Lesions (appear to be healing), Dryness (BLLE), No Rash Neurological: No Dizziness, No Focal Weakness, No Sensory Changes Psychological: No Symptoms Endocrine: No Symptoms Hematologic/Lymphatic: No Symptoms Immunological/Allergic: No Symptoms Objective Exam General Appearance: no apparent distress, alert Neurologic Exam: alert, oriented x 3, cooperative, normal mood/affect, nml cerebellar function, sensation nml, No motor deficits Skin Exam: normal color, warm, dry Wound Assessment: Skin/Wound Assessment Wound/Incision Assessment Start: 05/08/24 0 1:57 Text: Status: Active Freq: Q6H Protocol: Document 05/08/24 08:00 EK (Rec: 05/08/24 09:59 EK [id number]) Wound/Incision Assessment Bilateral Lower Legs Wound Assessment Shift Assessment Wound Type SCABBED AREAS Drainage Amount None General Appearance Open to air Right Foot 4th & 5th Digit Wound Assessment Shift Assessment Wound Type Amputation Right Foot 1st Digit Wound Assessment Shift Assessment Wound Type missing partial toe nail Wound Stage Non Pressure Wound General Appearance Open to air Wound Photo Photo Taken No Eye Exam: PERRL, EOMI, eyes nml inspection Ears, Nose, Throat Exam: normal ENT inspection, pharynx normal, moist mucous membranes Neck Exam: normal inspection, non-tender, supple, full range of motion Respiratory Exam: normal breath sounds, lungs clear, No respiratory distress Cardiovascular Exam: regular rate/rhythm, normal heart sounds Gastrointestinal/Abdomen Exam: soft, No tenderness, No mass Extremity Exam: normal inspection, normal range of motion Back Exam: normal inspection, normal range of motion, No CVA tenderness, No vertebral tenderness Male Genitalia Exam: deferred Rectal Exam: deferred Objective Data Vital Signs: Vital Signs - 24 hr Temp Pulse Resp BP BP Pulse Ox 05/08/24 07:38 97 F 71 22 138/71 96 05/08/24 04:00 98.0 F 76 20 129/74 93 L 05/08/24 00:16 97.3 F 83 20 134/60 93 L 05/07/24 23:30 76 17 133/68 95 05/07/24 23:00 78 18 160/97 97 05/07/24 22:30 68 17 154/83 95 05/07/24 22:00 70 18 159/90 94 L 05/07/24 21:30 74 19 151/86 96 05/07/24 21:00 78 16 176/96 95 05/07/24 20:30 76 19 159/92 96 05/07/24 20:00 90 16 159/91 96 05/07/24 19:30 89 17 175/103 95 05/07/24 19:27 91 H 18 171/94 96 05/07/24 18:40 95 05/07/24 18:30 92 H 18 149/75 96 05/07/24 18:00 85 25 H 139/72 05/07/24 17:30 82 16 122/78 93 L 05/07/24 17:18 87 18 139/80 94 L 05/07/24 17:17 97.9 F 88 20 139/80 95 Pain Assessment - Last Documented Pain Intensity 2 Intake and Output: Intake & Output 05/05/24 05/06/24 05/07/24 05/08/24 11:59 11:59 11:59 11:59 Intake Total 850 Output Total 710 Balance 140 Weight 101.1 kg Lab Results: Lab Results-Last 24 Hours 05/07/24 05/07/24 05/07/24 Range/Units 17:28 17:53 17:53 WBC 5.4 (4.23-9.07) x10^3/uL RBC 3.49 L (4.63-6.08) x10^6/uL Hgb 9.8 L (13.7-17.5) g/dL Hct 32.3 L (40.1-51.0) % MCV 92.6 H (79.0-92.2) fL MCH 28.1 (25.7-32.2) pg MCHC 30.3 L (32.3-36.5) g/dL RDW 14.6 H (11.6-14.4) % Plt Count 168 (163-337) x10^3/uL MPV 11.4 (9.4-12.4) fL Gran % 91.7 H (34.0-67.9) % Immature Gran % (Auto) 0.2 (0.001-0.429) % Nucleat RBC Rel Count 0.0 (0.00-0.2) % Eos # (Auto) 0.06 (0.04-0.54) x10^3/uL Immature Gran # (Auto) 0.01 (0.001-0.031) x10^3u/L Absolute Lymphs (auto) 0.13 L (1.32-3.57) x10^3/uL Absolute Monos (auto) 0.25 L (0.30-0.82) x10^3/uL Absolute Nucleated RBC 0.00 (0.00-0.012) x10^3u/L Lymphocytes % 2.4 L (21.8-53.1) % Monocytes % 4.6 L (5.3-12.2) % Eosinophils % 1.1 (0.8-7.0) % Basophils % 0.0 L (0.2-1.2) % Absolute Granulocytes 4.98 (1.78-5.38) x10^3/uL Basophils # 0 L (0.01-0.08) x10^3/uL Sodium 140 (135-145) mmol/L Potassium 4.1 (3.5-5.1) mmol/L Chloride 109 H (98-107) mmol/L Carbon Dioxide 27 (22-30) mmol/L Anion Gap 7.7 (5-15) MEQ/L BUN 29 H (9-20) mg/dL Creatinine 1.47 H (0.66-1.25) mg/dL Estimated GFR 52.0 ML/MIN Glucose 94 (74-106) mg/dL POC Glucometer (74 to 106) mg/dL Calcium 8.5 (8.4-10.2) mg/dL Magnesium 1.7 (1.6-2.3) mg/dL Total Bilirubin 0.50 (0.2-1.3) mg/dL AST 27 (17-59) U/L ALT 16 (0-50) U/L Alkaline Phosphatase 108 (38-126) U/L Creatine Kinase 79 (55-170) U/L Troponin I (0.000-0.033) ng/mL NT-Pro-B Natriuret Pep 15422 (<300) pg/mL Serum Total Protein 5.6 L (6.3-8.2) g/dL Albumin 2.9 L (3.5-5.0) g/dL Prealbumin (17.6-36.0) mg/dL TSH 3rd Generation (0.470-4.680) mIU/L 05/07/24 05/07/24 05/08/24 Range/Units 17:53 22:00 04:44 WBC (4.23-9.07) x10^3/uL RBC (4.63-6.08) x10^6/uL Hgb (13.7-17.5) g/dL Hct (40.1-51.0) % MCV (79.0-92.2) fL MCH (25.7-32.2) pg MCHC (32.3-36.5) g/dL RDW (11.6-14.4) % Plt Count (163-337) x10^3/uL MPV (9.4-12.4) fL Gran % (34.0-67.9) % Immature Gran % (Auto) (0.001-0.429) % Nucleat RBC Rel Count (0.00-0.2) % Eos # (Auto) (0.04-0.54) x10^3/uL Immature Gran # (Auto) (0.001-0.031) x10^3u/L Absolute Lymphs (auto) (1.32-3.57) x10^3/uL Absolute Monos (auto) (0.30-0.82) x10^3/uL Absolute Nucleated RBC (0.00-0.012) x10^3u/L Lymphocytes % (21.8-53.1) % Monocytes % (5.3-12.2) % Eosinophils % (0.8-7.0) % Basophils % (0.2-1.2) % Absolute Granulocytes (1.78-5.38) x10^3/uL Basophils # (0.01-0.08) x10^3/uL Sodium (135-145) mmol/L Potassium (3.5-5.1) mmol/L Chloride (98-107) mmol/L Carbon Dioxide (22-30) mmol/L Anion Gap (5-15) MEQ/L BUN (9-20) mg/dL Creatinine (0.66-1.25) mg/dL Estimated GFR ML/MIN Glucose (74-106) mg/dL POC Glucometer (74 to 106) mg/dL Calcium (8.4-10.2) mg/dL Magnesium (1.6-2.3) mg/dL Total Bilirubin (0.2-1.3) mg/dL AST (17-59) U/L ALT (0-50) U/L Alkaline Phosphatase (38-126) U/L Creatine Kinase (55-170) U/L Troponin I 0.018 0.019 0.019 (0.000-0.033) ng/mL NT-Pro-B Natriuret Pep (<300) pg/mL Serum Total Protein (6.3-8.2) g/dL Albumin (3.5-5.0) g/dL Prealbumin (17.6-36.0) mg/dL TSH 3rd Generation (0.470-4.680) mIU/L 05/08/24 05/08/24 05/08/24 Range/Units 04:44 04:44 04:56 WBC 3.8 L (4.23-9.07) x10^3/uL RBC 3.16 L (4.63-6.08) x10^6/uL Hgb 9.1 L (13.7-17.5) g/dL Hct 29.6 L (40.1-51.0) % MCV 93.7 H (79.0-92.2) fL MCH 28.8 (25.7-32.2) pg MCHC 30.7 L (32.3-36.5) g/dL RDW 14.6 H (11.6-14.4) % Plt Count 157 L (163-337) x10^3/uL MPV 11.1 (9.4-12.4) fL Gran % (34.0-67.9) % Immature Gran % (Auto) (0.001-0.429) % Nucleat RBC Rel Count (0.00-0.2) % Eos # (Auto) (0.04-0.54) x10^3/uL Immature Gran # (Auto) (0.001-0.031) x10^3u/L Absolute Lymphs (auto) (1.32-3.57) x10^3/uL Absolute Monos (auto) (0.30-0.82) x10^3/uL Absolute Nucleated RBC (0.00-0.012) x10^3u/L Lymphocytes % (21.8-53.1) % Monocytes % (5.3-12.2) % Eosinophils % (0.8-7.0) % Basophils % (0.2-1.2) % Absolute Granulocytes (1.78-5.38) x10^3/uL Basophils # (0.01-0.08) x10^3/uL Sodium 137 (135-145) mmol/L Potassium 3.8 (3.5-5.1) mmol/L Chloride 108 H (98-107) mmol/L Carbon Dioxide 24 (22-30) mmol/L Anion Gap 8.7 (5-15) MEQ/L BUN 29 H (9-20) mg/dL Creatinine 1.49 H (0.66-1.25) mg/dL Estimated GFR 51.1 ML/MIN Glucose 95 (74-106) mg/dL POC Glucometer (74 to 106) mg/dL Calcium 8.1 L (8.4-10.2) mg/dL Magnesium (1.6-2.3) mg/dL Total Bilirubin (0.2-1.3) mg/dL AST (17-59) U/L ALT (0-50) U/L Alkaline Phosphatase (38-126) U/L Creatine Kinase (55-170) U/L Troponin I (0.000-0.033) ng/mL NT-Pro-B Natriuret Pep (<300) pg/mL Serum Total Protein (6.3-8.2) g/dL Albumin (3.5-5.0) g/dL Prealbumin 16.44 L (17.6-36.0) mg/dL TSH 3rd Generation 4.189 (0.470-4.680) mIU/L 05/08/24 Range/Units 06:56 WBC (4.23-9.07) x10^3/uL RBC (4.63-6.08) x10^6/uL Hgb (13.7-17.5) g/dL Hct (40.1-51.0) % MCV (79.0-92.2) fL MCH (25.7-32.2) pg MCHC (32.3-36.5) g/dL RDW (11.6-14.4) % Plt Count (163-337) x10^3/uL MPV (9.4-12.4) fL Gran % (34.0-67.9) % Immature Gran % (Auto) (0.001-0.429) % Nucleat RBC Rel Count (0.00-0.2) % Eos # (Auto) (0.04-0.54) x10^3/uL Immature Gran # (Auto) (0.001-0.031) x10^3u/L Absolute Lymphs (auto) (1.32-3.57) x10^3/uL Absolute Monos (auto) (0.30-0.82) x10^3/uL Absolute Nucleated RBC (0.00-0.012) x10^3u/L Lymphocytes % (21.8-53.1) % Monocytes % (5.3-12.2) % Eosinophils % (0.8-7.0) % Basophils % (0.2-1.2) % Absolute Granulocytes (1.78-5.38) x10^3/uL Basophils # (0.01-0.08) x10^3/uL Sodium (135-145) mmol/L Potassium (3.5-5.1) mmol/L Chloride (98-107) mmol/L Carbon Dioxide (22-30) mmol/L Anion Gap (5-15) MEQ/L BUN (9-20) mg/dL Creatinine (0.66-1.25) mg/dL Estimated GFR ML/MIN Glucose (74-106) mg/dL POC Glucometer 78 (74 to 106) mg/dL Calcium (8.4-10.2) mg/dL Magnesium (1.6-2.3) mg/dL Total Bilirubin (0.2-1.3) mg/dL AST (17-59) U/L ALT (0-50) U/L Alkaline Phosphatase (38-126) U/L Creatine Kinase (55-170) U/L Troponin I (0.000-0.033) ng/mL NT-Pro-B Natriuret Pep (<300) pg/mL Serum Total Protein (6.3-8.2) g/dL Albumin (3.5-5.0) g/dL Prealbumin (17.6-36.0) mg/dL TSH 3rd Generation (0.470-4.680) mIU/L Radiology Exams: Radiology Procedures Category Date Time Status CHEST 1 VIEW (PORTABLE) Stat Exams 05/07/24 17:32 Completed CHEST WITH CONTRAST [CT] Stat Exams 05/07/24 18:19 Completed ECHO W/2D AND DOPPLER [US] Routine Exams 05/08/24 08:40 Ordered HEAD WITHOUT CONTRAST [CT] Stat Exams 05/07/24 18:19 Completed Assessment/Plan (1) CHF (congestive heart failure) Current Visit: No Status: Chronic Onset Date: ~10/06/18 Assessment & Plan: -EF 30-35% on TTE last month. Aggressively diuresed during that visit. ProBNP is elevated today, but down from levels during last visit (35k -> 15k). As well, clinically euvolemic on exam, no pulmonary edema seen on CT chest. Perhaps a little over-diuresed, based on reported orthostatic symptoms? - continue home torsemide 20 mg BID - continue Toprol XL 50 mg daily - not started on losartan last visit due to MOOKIE, but Cr improving now; see discussion of starting under CKD3 above - consider adjust torsemide dose as above (see lightheadedness above) - Echo pending - CXR showed mild right pleural effusion- Chest CT negative for pleural effusion. - + orthostats this AM Code(s): I50.9 - HEART FAILURE, UNSPECIFIED (2) Orthostatic hypotension Current Visit: Yes Status: Acute Assessment & Plan: - + orthostats this AM - Patient was started on torsemide one month ago (although unclear if has been taking the past few days since some of his medications ran out.) Although volume status looks clinically improved from one month ago, and Cr improved, perhaps a little over-diuresed? He denies - torsemide held last night - resume Torsemide 20 BID today - perhaps tweak torsemide dose lower for going home since orthostatic this AM. Code(s): I95.1 - ORTHOSTATIC HYPOTENSION (3) CAD (coronary artery disease) Current Visit: Yes Status: Acute Assessment & Plan: - continue aspirin 81, Plavix 75, metoprolol XL 50, atorvastatin 40 Code(s): I25.10 - ATHSCL HEART DISEASE OF [place] CORONARY ARTERY W/O ANG PCTRS (4) Chest pain Current Visit: Yes Status: Acute Assessment & Plan: - pt states sxs more related to rib pain. - Trop x3 negative Code(s): R07.9 - CHEST PAIN, UNSPECIFIED (5) Headache Current Visit: Yes Status: Acute Assessment & Plan: - not meeting emergent criteria, and no h/o migraines. CT head without acute changes. - PRN Tylenol Code(s): R51.9 - HEADACHE, UNSPECIFIED (6) CKD (chronic kidney disease) Current Visit: No Status: Acute Assessment & Plan: - Creat 1.49- better than baseline - trend Code(s): N18.9 - CHRONIC KIDNEY DISEASE, UNSPECIFIED (7) HTN (hypertension) Current Visit: No Status: Chronic Assessment & Plan: - continue Norvasc 5 daily - if needs additional BP meds, would likely try to start losartan 25 (see discussion above re: CKD, CHF) Code(s): I10 - ESSENTIAL (PRIMARY) HYPERTENSION (8) Normocytic anemia Current Visit: No Status: Chronic Assessment & Plan: - Hgb 9.1 - would benefit from further workup as outpatient, including reticulocyte count, repeat iron studies, when stable, with possible bone marrow biopsy if unexplained after this much time Code(s): D64.9 - ANEMIA, UNSPECIFIED (9) Type 2 diabetes mellitus with circulatory disorder Current Visit: No Status: Chronic Qualifiers: Assessment & Plan: - carb consistent diet - hold home oral hyperglycemic meds - cover with low-dose sliding scale insulin Code(s): E11.59 - TYPE 2 DIABETES MELLITUS WITH OTH CIRCULATORY COMPLICATIONS (10) Rib pain on right side Current Visit: Yes Status: Acute Assessment & Plan: - Pt reports he fell 2 weeks ago and hurt his right lower ribs- no bruising - Rib XR's Code(s): R07.81 - PLEURODYNIA (11) Fall Current Visit: Yes Status: Acute Assessment & Plan: - Pt reports he fell 2 weeks ago and hurt his right lower ribs- no bruising - Rib XR's - Echo Prophylaxis: SCD's, plavix PPI: Protonix Next of KIN: Olegario Haji, child, Code status: DNR Code(s): W19.XXXA - UNSPECIFIED FALL, INITIAL ENCOUNTER
[2024-05-08] MEDS: HUMULIN R SQ PRN (11:38)
--- NOTE | 2024-05-08 15:20 | XRAY ---
Indication: Right lower rib pain following fall 2 days ago. Comparison: None 2 view left and right ribs demonstrates osteopenia, mild multilevel cervicothoracic degenerative spondylosis old distal left clavicle fracture, small right lung base calcified granuloma, and borderline cardiomegaly with CABG all seen on CT chest one day earlier. No other bony, articular, or soft tissue abnormalities.
[2024-05-09 04:55] LABS: Hematocrit 29.6 % (40.1-51.0); Hemoglobin 9.3 g/dL (13.7-17.5); Mean Cell Volume 91.4 fL (79.0-92.2); Mean Corpuscular Hemoglobin 28.7 pg (25.7-32.2); Mean Corpuscular Hgb Concent. 31.4 g/dL (32.3-36.5); Mean Platelet Volume 11.2 fL (9.4-12.4); Platelet Count 163 x10^3/uL (163-337); Red Blood Count 3.24 x10^6/uL (4.63-6.08); Red Cell Distribution Width 14.8 % (11.6-14.4); White Blood Count 3.5 x10^3/uL (4.23-9.07)
[2024-05-09 05:11] LABS: ALBUMIN 2.8 g/dL (3.5-5.0); ANION GAP 9.1 MEQ/L (5-15); BILIRUBIN,TOTAL 0.2 mg/dL (0.2-1.3); Calcium 8.5 mg/dL (8.4-10.2); Creatinine 1 1.81 mg/dL (0.66-1.25); EST GLOMERULAR FILTRATION RATE 40.5 ML/MIN; Potassium 3.8 mmol/L (3.5-5.1); Total Protein 5.3 g/dL (6.3-8.2)
--- NOTE | 2024-05-09 10:09 | PCM.DS ---
Discharge Summary Date of Admission: 05/08/24 00:05 Date of Discharge: 05/09/24 Admitting Physician: ABEBE BEEBE MD Primary Care Provider: NICCI CLAROS Allergies Allergies gabapentin Adverse Reaction (Verified 03/31/24 19:26) "got kind of loopy" Hospital Summary - Hospital Course Hospital Course: 05/08/24 68 y/o M with h/o HFrEF, CAD (s/p 2vCABG, follows with Dr. Taylor), NIDDM2, COPD not on oxygen, CKD3, and HTN. He presented on 05/07/24 to ER with a few days of headache, dizziness, and difficulty walking. Initially this was relieved after a nap and some Aleve. But he noted difficulty with standing up, causing dizziness and almost falling twice today, so came to the ED. He denies vertigo, nausea, or full syncope. He did not initially report having any chest pain (which was the admitting reason from the ED), but upon questioning, stated had some right-sided intermittent chest pain, where he recently fell, worse with bending over, aching and burning and nature, not worse with exertion, not associated with diaphoresis, dyspnea, or numbness. He reported some dyspnea on waking this morning, but no chest pain at that time. He has run out of some of this medications 3-4 days ago, but he is unsure which. He was waiting for his Medicaid to kick in, which only started today. He is unsure which medications he was able to take today, and did not bring his medications with him, although he noted he has been taking his Torsemide as 20 BID instead of the prescribed 40 daily. Of note, patient was admitted for one week last month with pneumonia and worsening of EF, now with systolic heart failure. He was diuresed and discharged. He was also admitted for one day at the end of the month for fatigue, discharging home after getting magnesium replacement. Case management to assist with meds needed. He likely will need [facility]CO assistance. Since he now has insurance getting his meds should not be a problem. Echo scheduled for today, previous EF 30-35%. + orthostats this AM. CXR shows small right pleural effusion. Will continue toresimide, restart his meds. If improved may d/c home tomorrow. He denies CP but states he has right lower rib pain from a fall 2 weeks ago. He has no bruising and no rib fx seen on CXR, will order rib XR's Chest CT negative for pleural effusion. He denies SOB, abd. pain, N/V/D. 05/09/24 Pt sitting up in chair he is feeling much better. He explained he would like to go home today as he has 2 dogs to take care of. Discussed labs in detail. EF 50.76% per cardiology. Rib XR was negative for acute concern. He is no longer SOB. He denies CP, Abd pain, N/V/D. Continued + orthostats from sitting to standing, DEEPA [place] applied. Discussed to transition from sitting to standing slowly. He is not a candidate for meds d/t BP readings. F/U with cardiology OP. - Vitals & Intake/Output Vital Signs: Vital Signs Temperature 97.6 F 05/09/24 08:00 Pulse Rate 75 05/09/24 08:00 Respiratory Rate 15 05/09/24 08:00 Blood Pressure 147/73 05/09/24 08:00 O2 Sat by Pulse Oximetry 94 L 05/09/24 08:00 Intake & Output: Intake & Output 05/06/24 05/07/24 05/08/24 05/09/24 11:59 11:59 11:59 11:59 Intake Total 850 1530 Output Total 710 3200 Balance 140 -1670 Weight 101.1 kg - Lab Result Diagrams: 05/09/24 04:48 05/09/24 04:48 Lab Results-Last 24 Hrs: Lab Results-Last 24 Hours 05/08/24 05/08/24 05/08/24 Range/Units 11:21 16:08 21:37 WBC (4.23-9.07) x10^3/uL RBC (4.63-6.08) x10^6/uL Hgb (13.7-17.5) g/dL Hct (40.1-51.0) % MCV (79.0-92.2) fL MCH (25.7-32.2) pg MCHC (32.3-36.5) g/dL RDW (11.6-14.4) % Plt Count (163-337) x10^3/uL MPV (9.4-12.4) fL Sodium (135-145) mmol/L Potassium (3.5-5.1) mmol/L Chloride (98-107) mmol/L Carbon Dioxide (22-30) mmol/L Anion Gap (5-15) MEQ/L BUN (9-20) mg/dL Creatinine (0.66-1.25) mg/dL Estimated GFR ML/MIN Glucose (74-106) mg/dL POC Glucometer 166 H 154 H 163 H (74 to 106) mg/dL Calcium (8.4-10.2) mg/dL Total Bilirubin (0.2-1.3) mg/dL AST (17-59) U/L ALT (0-50) U/L Alkaline Phosphatase (38-126) U/L Serum Total Protein (6.3-8.2) g/dL Albumin (3.5-5.0) g/dL 05/09/24 05/09/24 05/09/24 Range/Units 04:48 04:48 07:11 WBC 3.5 L (4.23-9.07) x10^3/uL RBC 3.24 L (4.63-6.08) x10^6/uL Hgb 9.3 L (13.7-17.5) g/dL Hct 29.6 L (40.1-51.0) % MCV 91.4 (79.0-92.2) fL MCH 28.7 (25.7-32.2) pg MCHC 31.4 L (32.3-36.5) g/dL RDW 14.8 H (11.6-14.4) % Plt Count 163 (163-337) x10^3/uL MPV 11.2 (9.4-12.4) fL Sodium 138 (135-145) mmol/L Potassium 3.8 (3.5-5.1) mmol/L Chloride 105 (98-107) mmol/L Carbon Dioxide 28 (22-30) mmol/L Anion Gap 9.1 (5-15) MEQ/L BUN 33 H (9-20) mg/dL Creatinine 1.81 H (0.66-1.25) mg/dL Estimated GFR 40.5 ML/MIN Glucose 175 H (74-106) mg/dL POC Glucometer 136 H (74 to 106) mg/dL Calcium 8.5 (8.4-10.2) mg/dL Total Bilirubin 0.20 (0.2-1.3) mg/dL AST 36 (17-59) U/L ALT 25 (0-50) U/L Alkaline Phosphatase 169 H (38-126) U/L Serum Total Protein 5.3 L (6.3-8.2) g/dL Albumin 2.8 L (3.5-5.0) g/dL Micro Results-Entire Visit: Accuchecks Date 05/09/24 Date 05/08/24 Date 05/08/24 Date 05/08/24 Time 08:29 Time 16:42 Time 11:32 - Radiology Exams Ordered Rad Exams-Entire Visit: Radiology Procedures Category Date Time Status CHEST 1 VIEW (PORTABLE) Stat Exams 05/07/24 17:32 Completed CHEST WITH CONTRAST [CT] Stat Exams 05/07/24 18:19 Completed ECHO W/2D AND DOPPLER [US] Routine Exams 05/08/24 08:40 Taken HEAD WITHOUT CONTRAST [CT] Stat Exams 05/07/24 18:19 Completed RIBS BILATERAL (MIN 3 VIEWS) Routine Exams 05/08/24 10:55 Completed - Procedures and Test Procedures and Tests throughout Hospitalization: Therapy Orders & Screens 05/08/24 01:57 RT Screen per Nursing Assess ONCE Comment: Protocol Order Physician Instructions: Greater than 3 points order RT Admission Screen Reason For Exam: Triggered on Admission Diagnosis: dizziness Diagnosis: dizziness Pneumonia: No Home O2: Yes Asthma: No CHF: Yes Home CPAP/BIPAP: No Home Nebs/MDI: No Total Points: 8 05/08/24 08:00 OT Screen per Nursing Assess ONCE Comment: Protocol Order Physician Instructions: Greater than 3 points order OT Admission Screening Reason For Exam: Triggered on Admission Diagnosis: dizziness Open Wound/Cellutlitis/Pressure Ulcers: Yes Acute Fx/ORIF/Change in wt bearing status: No Severe MUSCULOSKELETAL pain: No ADL Dysfunction: No Acute CVA w/Hemiparesis/Hemiplegia: No Decreased Functional Mobility/Strength: No Sprain/Strain: No Acute Post-op Mobility Dysfunction: No Total Points: 5 PT Screen per Nursing Assess ONCE Comment: Protocol Order Physician Instructions: Greater than 3 points order PT Admission Screenin Reason For Exam: Triggered on Admission Diagnosis: dizziness Open Wound/Cellutlitis/Pressure Ulcers: Yes Acute Fx/ORIF/Change in wt bearing status: No Severe MUSCULOSKELETAL pain: No ADL Dysfunction: No Acute CVA w/Hemiparesis/Hemiplegia: No Decreased Functional Mobility/Strength: No Sprain/Strain: No Acute Post-op Mobility Dysfunction: No Total Points: 5 Discharge Exam General Appearance: no apparent distress, alert Neurologic Exam: alert, oriented x 3, cooperative, normal mood/affect, nml cerebellar function, sensation nml, No motor deficits Eye Exam: PERRL, EOMI, eyes nml inspection Ears, Nose, Throat Exam: normal ENT inspection, pharynx normal, moist mucous membranes Neck Exam: normal inspection, non-tender, supple, full range of motion Respiratory Exam: normal breath sounds, lungs clear, No respiratory distress Cardiovascular Exam: regular rate/rhythm, normal heart sounds Gastrointestinal/Abdomen Exam: soft, No tenderness, No mass Male Genitalia Exam: deferred Rectal Exam: deferred Back Exam: normal inspection, normal range of motion, No CVA tenderness, No vertebral tenderness Extremity Exam: normal inspection, normal range of motion Skin Exam: normal color, warm, dry, other (multiple lesions BLLE multiple stages of healing) Wound Assessment: Skin/Wound Assessment Wound/Incision Assessment Start: 05/08/24 01:57 Text: Status: Active Freq: Q6H Protocol: Document 05/09/24 08:00 AR (Rec: 05/09/24 08:25 AR [id number]) Wound/Incision Assessment Bilateral Lower Legs Wound Assessment Shift Assessment Wound Type SCABBED AREAS Drainage Amount None General Appearance Open to air Right Foot 4th & 5th Digit Wound Assessment Shift Assessment Wound Type Amputation Right Foot 1st Digit Wound Assessment Shift Assessment Wound Type missing partial toe nail Wound Stage Non Pressure Wound General Appearance Open to air Wound Photo Photo Taken No Final Diagnosis/Problem List - Final Discharge Diagnosis/Problem (1) CHF (congestive heart failure) Current Visit: No Status: Chronic Onset Date: ~10/06/18 Assessment & Plan: -EF 30-35% on TTE last month. Aggressively diuresed during that visit. ProBNP is elevated today, but down from levels during last visit (35k -> 15k). As well, clinically euvolemic on exam, no pulmonary edema seen on CT chest. Perhaps a little over-diuresed, based on reported orthostatic symptoms? - continue home torsemide 20 mg BID - continue Toprol XL 50 mg daily - not started on losartan last visit due to MOOKIE, but Cr improving now; see discussion of starting under CKD3 above - consider adjust torsemide dose as above (see lightheadedness above) - Echo pending - CXR showed mild right pleural effusion- Chest CT negative for pleural effusion. - + orthostats 05/09/24 - repeat orthostats ordered this AM Code(s): I50.9 - HEART FAILURE, UNSPECIFIED (2) Orthostatic hypotension Current Visit: Yes Status: Acute Assessment & Plan: - + orthostats 05/08/24 - Patient was started on torsemide one month ago (although unclear if has been taking the past few days since some of his medications ran out.) Although volume status looks clinically improved from one month ago, and Cr improved, perhaps a little over-diuresed? He denies - torsemide held last night 05/07 - resume Torsemide 20 BID today 05/08 - perhaps tweak torsemide dose lower for going home since orthostatic this AM. 05/09 - repeat orthostats-positive from sitting to standing - DEEPA [place] started - F/U with cardiology OP Code(s): I95.1 - ORTHOSTATIC HYPOTENSION (3) CAD (coronary artery disease) Current Visit: Yes Status: Chronic Assessment & Plan: - continue aspirin 81, Plavix 75, metoprolol XL 50, atorvastatin 40 Code(s): I25.10 - ATHSCL HEART DISEASE OF [place] CORONARY ARTERY W/O ANG PCTRS (4) Chest pain Current Visit: Yes Status: Acute Assessment & Plan: - pt states sxs more related to rib pain. - Trop x3 negative - rib XR negative for acute concern Code(s): R07.9 - CHEST PAIN, UNSPECIFIED (5) Headache Current Visit: Yes Status: Acute Assessment & Plan: - not meeting emergent criteria, and no h/o migraines. CT head without acute changes. - PRN Tylenol Code(s): R51.9 - HEADACHE, UNSPECIFIED (6) CKD (chronic kidney disease) Current Visit: No Status: Acute Assessment & Plan: - Creat 1.49- better than baseline - trend 05/09 - creat 1.81- near baseline Code(s): N18.9 - CHRONIC KIDNEY DISEASE, UNSPECIFIED (7) HTN (hypertension) Current Visit: No Status: Chronic Assessment & Plan: - continue Norvasc 5 daily - if needs additional BP meds, would likely try to start losartan 25 (see discussion above re: CKD, CHF) Code(s): I10 - ESSENTIAL (PRIMARY) HYPERTENSION (8) Normocytic anemia Current Visit: No Status: Chronic Assessment & Plan: - Hgb 9.1 - would benefit from further workup as outpatient, including reticulocyte count, repeat iron studies, when stable, with possible bone marrow biopsy if unexplained after this much time 05/09 - hgb stable Code(s): D64.9 - ANEMIA, UNSPECIFIED (9) Type 2 diabetes mellitus with circulatory disorder Current Visit: No Status: Chronic Assessment & Plan: - carb consistent diet - hold home oral hyperglycemic meds - cover with low-dose sliding scale insulin - A1C 6.44- 03/16/24 Code(s): E11.59 - TYPE 2 DIABETES MELLITUS WITH OTH CIRCULATORY COMPLICATIONS (10) Rib pain on right side Current Visit: Yes Status: Acute Assessment & Plan: - Pt reports he fell 2 weeks ago and hurt his right lower ribs- no bruising - Rib XR's- negative for acute concern Code(s): R07.81 - PLEURODYNIA (11) Fall Current Visit: Yes Status: Acute Assessment & Plan: - Pt reports he fell 2 weeks ago and hurt his right lower ribs- no bruising - Rib XR's - Echo - EF50.76%- reviewed Code(s): W19.XXXA - UNSPECIFIED FALL, INITIAL ENCOUNTER - Discharge Discharge Date: 05/09/24 Disposition: Home, Self-Care Condition: Stable Prescriptions: Continue Ezetimibe 10 mg PO DAILY Clopidogrel Bisulfate [PLAVIX Tablet] 75 mg PO DAILY Allopurinol 100 mg [Zyloprim 100 mg] 200 mg PO DAILY Aspirin EC 81 mg [Ecotrin 81 mg] 81 mg PO DAILY Metformin HCl [Metformin HCl ER] 1,000 mg PO BID Atorvastatin Calcium 1 tab PO DAILY PANTOPRAZOLE 40 mg Tablet [Protonix 40MG Tablet] 1 tab PO BID Potassium Chloride 20 meq PO DAILY 30 Days #30 tablet Torsemide 20 mg [Demadex 20 mg] 40 mg PO DAILY 30 Days #60 tablet Metoprolol Succinate 50 mg [Toprol Xl 50 MG] 50 mg PO DAILY 30 Days #30 tablet Amlodipine Besylate 5 mg [Norvasc 5 mg] 5 mg PO DAILY 30 Days #30 tablet Additional Instructions: CALL [facility] ([facility]) FOR ANY ISSUES, CONCERNS, OR NEED ASSISTANCE (EX. MEDICATIONS, TRANSPORTATION, APPOINTMENTS) AT [phone] EXT. [phone]. * Wear DEEPA hose during the day and take off at night. Follow up with: NICCI CLAROS MD [Primary Care Provider] - 05/15/24 2:15 pm
[2024-05-09 11:54] VITALS: BP 146/78; PULSE 78; RESP 17; TEMP 97.7; O2SAT 93
== END 2024-05-09 16:50 | disposition home or self-care (01) ==
LOC: ED 17:13 → MED SURG 05-08 00:05
PROVIDERS: ADMIT Internal Medicine; ATTEND Internal Medicine
DX: E11.22 Type 2 diabetes mellitus with diabetic chronic kidney disease (principal); I13.0 Hypertensive heart and chronic kidney disease with heart failure and stage 1 through stage 4 chronic kidney disease, or unspecified chronic kidney disease; N18.30 Chronic kidney disease, stage 3 unspecified; I50.9 Heart failure, unspecified; I95.1 Orthostatic hypotension; I25.10 Atherosclerotic heart disease of native coronary artery without angina pectoris; R07.9 Chest pain, unspecified; R51.9 Headache, unspecified; D64.9 Anemia, unspecified; E11.59 Type 2 diabetes mellitus with other circulatory complications; R07.81 Pleurodynia; W19.XXXA Unspecified fall, initial encounter; J44.9 Chronic obstructive pulmonary disease, unspecified; E78.5 Hyperlipidemia, unspecified; Z79.01 Long term (current) use of anticoagulants; Z79.899 Other long term (current) drug therapy; Z95.0 Presence of cardiac pacemaker
CPT/HCPCS: 36000; 36415; 70450; 71045; 71110; 71260; 80048; 80053; 82550; 82947; 83735; 83880; 84134; 84443; 84484; 85025; 85027; 93005; 93041; 93306; 96374; 99285; Q3014; 93268; J1815; A9270-GY; G0378

== ENCOUNTER 2024-05-17 18:14 | Emergency (ER) | payer MEDICARE, OTHER ==
[2024-05-17 18:31] VITALS: TEMP 97.3
--- NOTE | 2024-05-17 18:49 | ERPHSYRPT ---
- History of Present Illness Time Seen by Provider: 05/17/24 18:48 Historian: patient, EMS, old records Patient Subjective Stated Complaint: "I've been having nausea since this morning and trying to throw up but haven't been able to. My blood pressure has been high and I've been feeling dizzy". Triage Nursing Assessment: Pt presents to ER by ambulance with complaints of high blood pressure, dizziness, abdominal pain, and nausea. Pt is alert and oriented x 3. Skin is pink, warm, and dry. Respiration are unlabored. Abdomen is tender upon exam. Pain rated at a 6/10 scale. Pt states pain is in LUQ and radiates to the center of his abdomen. Complains of nausea since this morning but denies vomiting or diarrhea. Physician History: This is a 68-year-old white male patient of Dr. Claros who is diabetic and presents by the paper counter service because of abdominal pain and nausea that worsened throughout the day. He had dry heaves but no vomiting. He denies chest pain. He denies shortness of breath. He denies diarrhea. His abdominal pain is generalized intermittent cramping. Patient is diabetic. Patient stated that 2 days ago, he was seen by Dr. Claros and Dr. Claros ordered labs to be drawn. I did review those labs that were drawn as an outpatient. Of significance his BUN/creatinine is 47/2.13 and his GFR is 33.3. Timing/Duration: today Quality: cramping Abdominal Pain Onset Location: generalized abdomen Pain Radiation: no radiation Severity of Pain-Max: mild Severity of Pain-Current: mild Modifying Factors: Improves With: other (Nausea but no vomiting) Associated Symptoms: nausea, weakness (Mild), No chest pain, No diaphoresis, No diarrhea, No shortness of breath Previous symptoms: no prior history, recently seen (As an outpatient in Dr. Claros's office.) Allergies/Adverse Reactions: gabapentin Adverse Reaction (Verified 05/17/24 18:31) "got kind of loopy" Hx Tetanus, Diphtheria Vaccination/Date Given: No Hx Influenza Vaccination/Date Given: No Hx Pneumococcal Vaccination/Date Given: No Immunizations Up to Date: No Travel Risk - International Travel Have you traveled outside of the country in past 3 weeks: No - Emerging Infectious Disease Are you exhibiting symptoms associated with any current EIDs: No Symptoms: Headaches/Body Aches/, Shortness of Breath - Review of Systems Constitutional: Weakness Eyes: No Symptoms Ears, Nose, & Throat: No Symptoms Respiratory: No Symptoms Cardiac: No Symptoms Abdominal/Gastrointestinal: Abdominal Pain, Nausea, Appetite Changes, No Vomiting, No Diarrhea, No Constipation Genitourinary Symptoms: No Symptoms Musculoskeletal: No Symptoms Skin: No Symptoms Neurological: No Symptoms Psychological: No Symptoms Endocrine: No Symptoms Hematologic/Lymphatic: No Symptoms Immunological/Allergic: No Symptoms All Other Systems: Reviewed and Negative - Past Medical History Pertinent Past Medical History: Yes Neurological History: No Pertinent History ENT History: No Pertinent History Cardiac History: Angina, Congestive Heart Failure, Coronary Artery Disease, High Cholesterol, Hypertension, Myocardial Infarction ([place]) Respiratory History: COPD Endocrine Medical History: Diabetes Type II Musculoskeletal History: Osteoarthritis GI Medical History: No Pertinent History History: No Pertinent History Psycho-Social History: Depression Male Reproductive Disorders: No Pertinent History Other Medical History: fractured ribs, anemia, gout - Past Surgical History Past Surgical History: Yes Neuro Surgical History: No Pertinent History Cardiac: CABG, Cardiac Catheterization, Cardiac Stent, Other Respiratory: Chest Surgery Gastrointestinal: No Pertinent History Genitourinary: No Pertinent History Musculoskeletal: Orthopedic Surgery Male Surgical History: No Pertinent History Other Surgical History: umbilical, triple bypass, L shoulder. polyp removal, right foot (two toes amputation) Significant Family History: no pertinent family hx - Social History Smoking Status: Former smoker How long have you smoked: 53 Exposure to second hand smoke: No Drug Use: none Patient Lives Alone: No - Social Determinants of Health Will the patient participate in the screening: Yes Do you worry about a steady place to live?: No Do you have any problems with any of the following?: Pest (bugs,ants,or mice), Lack of heat, Other In the past 12 months,have you had to go without utilities?: No Transportation Issues: No Has anyone in your support network made you feel unsafe?: Yes Have you or anyone in your house had to go without enough: Yes - Nursing Vital Signs Nursing Vital Signs: Initial Vital Signs Temperature 97.3 F 05/17/24 18:17 Pulse Rate 70 05/17/24 18:17 Respiratory Rate 18 05/17/24 18:17 Blood Pressure 145/80 05/17/24 18:17 O2 Sat by Pulse Oximetry 99 05/17/24 18:17 Pain Scale Pain Intensity 4 - Physical Exam General Appearance: no apparent distress, alert Eye Exam: PERRL/EOMI, eyes nml inspection Ears, Nose, Throat Exam: normal ENT inspection Neck Exam: normal inspection, non-tender, supple, full range of motion Respiratory Exam: normal breath sounds, lungs clear, No chest tenderness, No respiratory distress Cardiovascular Exam: regular rate/rhythm, normal heart sounds, normal peripheral pulses Gastrointestinal/Abdomen Exam: soft, normal bowel sounds, tenderness (Mild diffuse), guarding (Mild diffuse), No rebound Rectal Exam: not done Back Exam: normal inspection, normal range of motion, No CVA tenderness, No vertebral tenderness Extremity Exam: normal inspection, normal range of motion, pelvis stable Neurologic Exam: alert, oriented x 3, cooperative, brewing director II-XII nml as tested, normal mood/affect, nml cerebellar function, nml station & gait, sensation nml Skin Exam: normal color, warm, dry Lymphatic Exam: No adenopathy SpO2 Interpretation: normal SpO2: 97 O2 Delivery: Room Air - Course Nursing assessment & vital signs reviewed: Yes EKG Interpreted by Me: RATE Ordered Tests: Active Orders 24 hr Category Date Time Status EKG-ER Only STAT Care 05/17/24 18:57 Active IV Insertion STAT Care 05/17/24 18:57 Active ACO SDOH Referral ONCE Cons 05/17/24 18:31 Active ABDOMEN AND PELVIS W/0 CONTRAS [CT] Stat Exams 05/17/24 18:58 Taken HEAD WITHOUT CONTRAST [CT] Stat Exams 05/17/24 18:59 Taken AMYLASE Stat Lab 05/17/24 19:16 Completed CBC W DIFF Stat Lab 05/17/24 19:16 Completed CMP Stat Lab 05/17/24 19:16 Completed LIPASE Stat Lab 05/17/24 19:16 Completed Lactic Acid Stat Lab 05/17/24 18:57 Completed MONO SCREEN Stat Lab 05/17/24 18:30 Completed TROPONIN Q4H Lab 05/17/24 19:16 Completed TROPONIN Q4H Lab 05/17/24 23:45 Ordered TROPONIN Q4H Lab 05/18/24 03:45 Ordered UA W/RFX UR CULTURE Stat Lab 05/17/24 19:45 Completed Medication Summary Generic Name Dose Route Start Last Admin Trade Name Freq PRN Reason Stop Dose Admin Sodium Chloride 1,000 mls @ 100 mls/hr 05/17/24 19:00 05/17/24 19:47 Sodium Chloride 0.9% 1000 Ml IV 06/16/24 18:59 100 mls/hr .Q10H ZARIA Administration Discontinued Medications Generic Name Dose Route Start Last Admin Trade Name Esther PRN Reason Stop Dose Admin Ondansetron HCl 4 mg 05/17/24 18:57 05/17/24 19:47 Ondansetron Hcl 4 Mg/2 Ml Vial IV 05/17/24 18:58 4 mg STAT ONE Administration Ondansetron HCl Confirm 05/17/24 19:46 Ondansetron Hcl 4 Mg/2 Ml Vial Administered 05/17/24 19:47 Dose 4 mg .ROUTE .STK-MED ONE Lab/Rad Data: Laboratory Result Diagrams 05/17/24 19:16 05/17/24 19:16 Laboratory Results 05/17/24 05/17/24 05/17/24 Range/Units 19:45 19:16 19:16 WBC (4.23-9.07) x10^3/uL RBC (4.63-6.08) x10^6/uL Hgb (13.7-17.5) g/dL Hct (40.1-51.0) % MCV (79.0-92.2) fL MCH (25.7-32.2) pg MCHC (32.3-36.5) g/dL RDW (11.6-14.4) % Plt Count (163-337) x10^3/uL MPV (9.4-12.4) fL Gran % (34.0-67.9) % Immature Gran % (Auto) (0.001-0.429) % Nucleat RBC Rel Count (0.00-0.2) % Eos # (Auto) (0.04-0.54) x10^3/uL Immature Gran # (Auto) (0.001-0.031) x10^3u/L Absolute Lymphs (auto) (1.32-3.57) x10^3/uL Absolute Monos (auto) (0.30-0.82) x10^3/uL Absolute Nucleated RBC (0.00-0.012) x10^3u/L Lymphocytes % (21.8-53.1) % Monocytes % (5.3-12.2) % Eosinophils % (0.8-7.0) % Basophils % (0.2-1.2) % Absolute Granulocytes (1.78-5.38) x10^3/uL Basophils # (0.01-0.08) x10^3/uL Sodium 141 (135-145) mmol/L Potassium 4.2 (3.5-5.1) mmol/L Chloride 109 H (98-107) mmol/L Carbon Dioxide 26 (22-30) mmol/L Anion Gap 11.0 (5-15) MEQ/L BUN 41 H (9-20) mg/dL Creatinine 1.95 H (0.66-1.25) mg/dL Estimated GFR 37.0 ML/MIN Glucose 175 H (74-106) mg/dL Lactic Acid (0.4-2.0) Calcium 8.9 (8.4-10.2) mg/dL Total Bilirubin 0.20 (0.2-1.3) mg/dL AST 25 (17-59) U/L ALT 19 (0-50) U/L Alkaline Phosphatase 129 H (38-126) U/L Troponin I 0.013 (0.000-0.033) ng/mL Serum Total Protein 6.1 L (6.3-8.2) g/dL Albumin 3.5 (3.5-5.0) g/dL Amylase 73 (30-110) U/L Lipase 33 (23-300) U/L Urine Color Yellow (Yellow) Urine Appearance Clear (Clear) Urine pH 7.0 (4.6-8.0) Ur Specific [place] 1.010 (1.005-1.030) Urine Protein 300 A (Negative) Urine Glucose (UA) 100 A (Negative) mg/dL Urine Ketones Negative (Negative) Urine Blood Negative (Negative) Urine Nitrite Negative (Negative) Urine Bilirubin Negative (Negative) Urine Urobilinogen 1.0 A (0.2) mg/dL Ur Leukocyte Esterase Negative (Negative) U Hyaline Cast (Auto) NONE SEEN (0-2) /LPF Urine Microscopic RBC 0-2 (0-5) /HPF Urine Microscopic WBC 0-2 (0-5) /HPF Ur Epithelial Cells None Seen (None Seen) /HPF Urine Bacteria None Seen (None Seen) /HPF Urine Culture Reflexed NO (NO) Monoscreen (NEGATIVE) 05/17/24 05/17/24 05/17/24 Range/Units 19:16 18:57 18:30 WBC 5.3 (4.23-9.07) x10^3/uL RBC 3.67 L (4.63-6.08) x10^6/uL Hgb 10.5 L (13.7-17.5) g/dL Hct 34.2 L (40.1-51.0) % MCV 93.2 H (79.0-92.2) fL MCH 28.6 (25.7-32.2) pg MCHC 30.7 L (32.3-36.5) g/dL RDW 14.6 H (11.6-14.4) % Plt Count 226 (163-337) x10^3/uL MPV 11.4 (9.4-12.4) fL Gran % 77.5 H (34.0-67.9) % Immature Gran % (Auto) 0.4 (0.001-0.429) % Nucleat RBC Rel Count 0.0 (0.00-0.2) % Eos # (Auto) 0.14 (0.04-0.54) x10^3/uL Immature Gran # (Auto) 0.02 (0.001-0.031) x10^3u/L Absolute Lymphs (auto) 0.66 L (1.32-3.57) x10^3/uL Absolute Monos (auto) 0.36 (0.30-0.82) x10^3/uL Absolute Nucleated RBC 0.00 (0.00-0.012) x10^3u/L Lymphocytes % 12.5 L (21.8-53.1) % Monocytes % 6.8 (5.3-12.2) % Eosinophils % 2.6 (0.8-7.0) % Basophils % 0.2 (0.2-1.2) % Absolute Granulocytes 4.10 (1.78-5.38) x10^3/uL Basophils # 0.01 (0.01-0.08) x10^3/uL Sodium (135-145) mmol/L Potassium (3.5-5.1) mmol/L Chloride (98-107) mmol/L Carbon Dioxide (22-30) mmol/L Anion Gap (5-15) MEQ/L BUN (9-20) mg/dL Creatinine (0.66-1.25) mg/dL Estimated GFR ML/MIN Glucose (74-106) mg/dL Lactic Acid 1.9 (0.4-2.0) Calcium (8.4-10.2) mg/dL Total Bilirubin (0.2-1.3) mg/dL AST (17-59) U/L ALT (0-50) U/L Alkaline Phosphatase (38-126) U/L Troponin I (0.000-0.033) ng/mL Serum Total Protein (6.3-8.2) g/dL Albumin (3.5-5.0) g/dL Amylase (30-110) U/L Lipase (23-300) U/L Urine Color (Yellow) Urine Appearance (Clear) Urine pH (4.6-8.0) Ur Specific [place] (1.005-1.030) Urine Protein (Negative) Urine Glucose (UA) (Negative) mg/dL Urine Ketones (Negative) Urine Blood (Negative) Urine Nitrite (Negative) Urine Bilirubin (Negative) Urine Urobilinogen (0.2) mg/dL Ur Leukocyte Esterase (Negative) U Hyaline Cast (Auto) (0-2) /LPF Urine Microscopic RBC (0-5) /HPF Urine Microscopic WBC (0-5) /HPF Ur Epithelial Cells (None Seen) /HPF Urine Bacteria (None Seen) /HPF Urine Culture Reflexed (NO) Monoscreen NEGATIVE (NEGATIVE) - Progress Progress: improved, re-examined Progress Note: 05/17/24 19:47 My medical vision making and the assignment of moderate complexity of the patient's medical issue today is based on review of the patient's past medical history, review the patient's medication list, review patient drug allergy list, history present illness and physical findings on examination. The workup in this patient includes intravenous line placement infusion of low rate crystalloid, CBC, CMP, twelve-lead EKG, magnesium level, troponin level, CT scan of the abdomen pelvis and CT scan of the head both without contrast. We also ordered a urinalysis. Differential diagnosis includes but is not limited to urinary tract infection, acute intra-abdominal abnormality, acute intracranial abnormality, hyperglycemia , electrolyte abnormality, arrhythmia 05/17/24 20:52 I interpreted the patient's laboratory data results. Based on the laboratory data results, there are no acute, emergent findings. We are waiting for the remainder of the viral swab results. CT scan of the head without contrast interpreted by the radiologist and I reviewed the impression and was compared to those studies performed on 03/31/2024 and 05/07/2024. There is stable, nonacute senile brain unchanged from those prior study dates. 05/17/24 20:[address] scan of the abdomen pelvis was interpreted by the radiologist and I reviewed the impression. there is stable gallstone. There is mild diffuse fecal stasis. There is evidence of sigmoid diverticulosis. There is arteriosclerotic disease present. There is bilateral fatty inguinal hernias. There are chronic bony findings. There is no new or acute findings present. 05/17/24 21:21 Refused viral swabs. Counseled pt/family regarding: lab results, diagnosis Medical Desision Making - Independent Historian Additional History obtained from: Educational Speech Language Clinician/EMT - Diagnostic Testing Diagnostic test were ordered, analyzed, and reviewed by me: Yes Radiological Interpretation: Reviewed by me, Teleradiologist Report - Risk of complications Low Risk: Low risk of morbidity from additional dx testing or treatment - Departure Departure Disposition: Home Clinical Impression: Dizziness, Renal disease Condition: Stable Critical Care Time: No Referrals: NICCI CLAROS MD [Primary Care Provider] - Follow up/PCP as directed Additional Instructions: Continue medication as prescribed. Monitor your blood sugar closely. Call your primary care provider's office tomorrow, 05/18/2024, to make arrangements for follow-up appointment for further evaluation management. Drink plenty of clear liquids.
[2024-05-17 19:19] LABS: BASOPHIL % 0.2 % (0.2-1.2); Basophil (Absolute #) 0.01 x10^3/uL (0.01-0.08); Eosinophil % 2.6 % (0.8-7.0); Eosinophil (Absolute #) 0.14 x10^3/uL (0.04-0.54); Hematocrit 34.2 % (40.1-51.0); Hemoglobin 10.5 g/dL (13.7-17.5); IMMATURE GRAN # 0.02 x10^3u/L (0.001-0.031); IMMATURE GRAN % 0.4 % (0.001-0.429); Lymphocyte (Absolute #) 0.66 x10^3/uL (1.32-3.57); Lymphocytes % 12.5 % (21.8-53.1); Mean Cell Volume 93.2 fL (79.0-92.2); Mean Corpuscular Hemoglobin 28.6 pg (25.7-32.2); Mean Corpuscular Hgb Concent. 30.7 g/dL (32.3-36.5); Mean Platelet Volume 11.4 fL (9.4-12.4); Monocyte (Absolute #) 0.36 x10^3/uL (0.30-0.82); Monocytes % 6.8 % (5.3-12.2); Neutrophil % 77.5 % (34.0-67.9); Platelet Count 226 x10^3/uL (163-337); Red Blood Count 3.67 x10^6/uL (4.63-6.08); Red Cell Distribution Width 14.6 % (11.6-14.4); White Blood Count 5.3 x10^3/uL (4.23-9.07)
[2024-05-17 19:31] LABS: ALBUMIN 3.5 g/dL (3.5-5.0); BILIRUBIN,TOTAL 0.2 mg/dL (0.2-1.3); Calcium 8.9 mg/dL (8.4-10.2); Creatinine 1 1.95 mg/dL (0.66-1.25); Potassium 4.2 mmol/L (3.5-5.1); Total Protein 6.1 g/dL (6.3-8.2)
[2024-05-17] MEDS ORDERED: Sodium Chloride 0.9% 1000 ML 1,000 ML ONE (19:46)
[2024-05-17] MEDS ORDERED: Zofran 4 MG/2 ML VIAL ONE (19:46)
[2024-05-17] MEDS: Zofran 4 MG/2 ML VIAL IV ONE (19:47)
[2024-05-17] MEDS: Sodium Chloride 0.9% 1000 ML 1,000 ML IV SCH (19:47)
[2024-05-17 19:56] LABS: Appearance Clear (Clear); Bilirubin Negative (Negative); Blood Negative (Negative); Glucose, Urine 100 mg/dL (Negative); Ketones Negative (Negative); Leukocyte Esterase Negative (Negative); Nitrite Negative (Negative); Protein,Urine Dip 300 (Negative)
[2024-05-17 20:06] LABS: Bacteria None Seen /HPF (None Seen); Epithelial Cells None Seen /HPF (None Seen); Hyaline Casts NONE SEEN /LPF (0-2); RBC 0-2 /HPF (0-5); WBC 0-2 /HPF (0-5)
[2024-05-17 20:07] LABS: ADD URINE CULTURE? NO (NO)
[2024-05-17 21:32] VITALS: BP 150/82; PULSE 66; RESP 19; O2SAT 96
--- NOTE | 2024-05-18 08:38 | XRAY ---
Indication: Dizziness. Nausea. Multiple contiguous axial images obtained through the head without contrast. Comparison: May 07, 2024 Again age-appropriate global atrophy, mild periventricular degenerative micro-ischemia, bilateral basal ganglia remote lacunar infarcts, and small remote infarct right mid smith radiata. No acute intracranial hemorrhage, abnormal extra-axial fluid collection, or mass effect. Fourth ventricle is midline bony calvarium intact. Visualized paranasal sinuses and mastoid air cells are clear. Impression: Continued nonacute senile brain with tiny remote infarcts as detailed.
--- NOTE | 2024-05-18 08:41 | XRAY ---
Indication: Abdomen pain and nausea. Multiple contiguous axial images obtained through the abdomen and pelvis without contrast. Comparison: October 23, 2022 Lung bases demonstrates minimal bilateral dependent atelectasis. Stable right lower lobe calcified granulomas. No infiltrate or effusion. Heart again borderline enlarged. Noncontrasted stomach and bowel loops appear nonobstructed with normal appendix. Again mild diffuse scattered colonic fecal debris and sigmoid diverticulosis. Gallbladder again mildly distended with gallstones in the neck of the gallbladder. No abnormal biliary distention. Again incidental splenic calcified granuloma. No free fluid/air. Remaining liver, gallbladder, pancreas, spleen, adrenal glands, kidneys, ureters, and bladder are unremarkable for noncontrast exam. There remains mild scattered aortoiliac calcifications without AAA. Osseous structures intact again with osteopenia, moderate degenerative changes throughout the spine, mild lumbar levoscoliosis, and mild degenerative changes both hips. Again incidental small bilateral fatty inguinal hernias. Impression: 1. Again mildly distended gallbladder with gallstones better evaluated with sonogram if not already performed. 2. Again mild diffuse fecal stasis without obstruction. 3. Again chronic findings including sigmoid diverticulosis, arteriosclerotic disease, bilateral fatty inguinal hernias, chronic bony findings, and old granulomatous disease. 4. No new/acute findings on this noncontrast exam.
== END 2024-05-17 21:38 | disposition home or self-care (01) ==
LOC: ED 18:14
DX: R42 Dizziness and giddiness (principal); N28.9 Disorder of kidney and ureter, unspecified; R10.84 Generalized abdominal pain; R11.0 Nausea; E11.9 Type 2 diabetes mellitus without complications; I11.0 Hypertensive heart disease with heart failure; I50.9 Heart failure, unspecified; E78.5 Hyperlipidemia, unspecified; Z59.19 Other inadequate housing; Z59.11 Inadequate housing environmental temperature; Z63.9 Problem related to primary support group, unspecified; Z59.41 Food insecurity
CPT/HCPCS: 36000; 36415; 70450; 74176; 80053; 81001; 82150; 83605; 83690; 84484; 85025; 86308; 93005; 96374; 99284; J2405

== ENCOUNTER 2024-10-17 18:21 | Observation (INO) | payer MEDICARE, OTHER ==
--- NOTE | 2024-10-17 20:04 | ERPHSYRPT ---
- History of Present Illness Time Seen by Provider: 10/17/24 19:50 Historian: patient Exam Limitations: no limitations Patient Subjective Stated Complaint: Abdominal pain Triage Nursing Assessment: Patient brought into ED per EMS and transferred to bed with assist of 2. Patient A+O X3. Patient's skin pink, warm and dry. Patient complains of intermittent sharp abdominal pain for the past few days with nausea. Abdomen soft and round with BS X 4. Patient also complains of increased heart burn for the past few days. Physician History: 69-year-old male presents to our ED for evaluation of generalized abdominal pain heartburn and nausea that has been ongoing for approximately 3 days. Pain described as an ache. No radiation. Pain worse with palpation. Pain improved with rest. No vomiting no diarrhea no rash. No testicular pain or tenderness. Patient otherwise feels well. He voices no other complaints or concerns at this time. Portions of this note were created with voice recognition technology. There may be grammatical, spelling, punctuation or sound alike errors Timing/Duration: day(s) (3 days) Activities at Onset: none Quality: aching Abdominal Pain Onset Location: generalized abdomen Pain Radiation: no radiation Severity of Pain-Max: moderate Severity of Pain-Current: mild Modifying Factors: Improves With: other (Movement and palpation) Associated Symptoms: nausea, other (Heartburn and nausea) Previous symptoms: no prior history Allergies/Adverse Reactions: gabapentin Adverse Reaction (Verified 10/17/24 18:22) "got kind of loopy" Hx Tetanus, Diphtheria Vaccination/Date Given: No Hx Influenza Vaccination/Date Given: Yes Hx Pneumococcal Vaccination/Date Given: Yes Immunizations Up to Date: No Travel Risk - International Travel Have you traveled outside of the country in past 3 weeks: No - Emerging Infectious Disease Are you exhibiting symptoms associated with any current EIDs: No Symptoms: Headaches/Body Aches/, Shortness of Breath - Review of Systems Constitutional: No Symptoms, No Fever, No Chills Eyes: No Symptoms Ears, Nose, & Throat: No Symptoms Respiratory: No Symptoms, No Cough, No Dyspnea Cardiac: No Symptoms, No Chest Pain, No Edema, No Syncope Abdominal/Gastrointestinal: No Symptoms, No Abdominal Pain, No Nausea, No Vomiting, No Diarrhea Genitourinary Symptoms: No Symptoms, No Dysuria Musculoskeletal: No Symptoms, No Back Pain, No Neck Pain Skin: No Symptoms, No Rash Neurological: No Symptoms, No Dizziness, No Focal Weakness, No Sensory Changes Psychological: No Symptoms Endocrine: No Symptoms Hematologic/Lymphatic: No Symptoms Immunological/Allergic: No Symptoms All Other Systems: Reviewed and Negative - Past Medical History Pertinent Past Medical History: Yes Neurological History: No Pertinent History ENT History: No Pertinent History Cardiac History: Angina, Congestive Heart Failure, Coronary Artery Disease, High Cholesterol, Hypertension, Myocardial Infarction (AR) Respiratory History: COPD Endocrine Medical History: Diabetes Type II Musculoskeletal History: Osteoarthritis GI Medical History: No Pertinent History History: No Pertinent History Psycho-Social History: Depression Male Reproductive Disorders: No Pertinent History Other Medical History: fractured ribs, anemia, gout - Past Surgical History Past Surgical History: Yes Neuro Surgical History: No Pertinent History Cardiac: CABG, Cardiac Catheterization, Cardiac Stent, Other Respiratory: Chest Surgery Gastrointestinal: No Pertinent History Genitourinary: No Pertinent History Musculoskeletal: Orthopedic Surgery Male Surgical History: No Pertinent History Other Surgical History: umbilical, triple bypass, L shoulder. polyp removal, right foot (two toes amputation) Significant Family History: no pertinent family hx - Social History Smoking Status: Former smoker How long have you smoked: 53 Exposure to second hand smoke: No Drug Use: none Patient Lives Alone: No - Social Determinants of Health Will the patient participate in the screening: Yes Do you worry about a steady place to live?: No Do you have any problems with any of the following?: No known problems In the past 12 months,have you had to go without utilities?: No Transportation Issues: No Has anyone in your support network made you feel unsafe?: Yes Have you or anyone in your house had to go without enough: Yes - Nursing Vital Signs Nursing Vital Signs: Initial Vital Signs Temperature 97.3 F 10/17/24 18:29 Pulse Rate 66 10/17/24 18:29 Respiratory Rate 20 10/17/24 18:29 Blood Pressure 136/78 10/17/24 18:29 O2 Sat by Pulse Oximetry 96 10/17/24 18:29 Pain Scale Pain Intensity 6 - Physical Exam General Appearance: no apparent distress, alert Eye Exam: PERRL/EOMI, eyes nml inspection Ears, Nose, Throat Exam: normal ENT inspection, pharynx normal, moist mucous membranes Neck Exam: normal inspection, full range of motion Respiratory Exam: normal breath sounds, lungs clear, airway intact, No respiratory distress Cardiovascular Exam: regular rate/rhythm, normal heart sounds Gastrointestinal/Abdomen Exam: soft, tenderness (Generalized abdominal tenderness no guarding no rebound mild distention), distention, No mass, No guarding, No pulsatile mass Back Exam: normal inspection, normal range of motion, No CVA tenderness, No vertebral tenderness Extremity Exam: normal inspection, normal range of motion, pelvis stable Neurologic Exam: alert, oriented x 3, cooperative, normal mood/affect, nml cerebellar function, sensation nml, No motor deficits Skin Exam: normal color, warm, dry Lymphatic Exam: No adenopathy SpO2 Interpretation: normal SpO2: 98 O2 Delivery: Room Air - Course Nursing assessment & vital signs reviewed: Yes Ordered Tests: Active Orders 24 hr Category Date Time Status IV Insertion STAT Care 10/17/24 19:55 Active ACO SDOH Referral ONCE Cons 10/17/24 18:39 Active ABDOMEN AND PELVIS W/0 CONTRAS [CT] Stat Exams 10/17/24 19:55 Completed CBC W DIFF Stat Lab 10/17/24 20:10 Completed CMP Stat Lab 10/17/24 20:10 Completed LIPASE Stat Lab 10/17/24 20:10 Completed Lactic Acid Stat Lab 10/18/24 00:26 Ordered TROPONIN Q4H Lab 10/17/24 20:10 Completed TROPONIN Q4H Lab 10/18/24 00:12 Completed TROPONIN Q4H Lab 10/18/24 04:00 Ordered UA W/RFX UR CULTURE Stat Lab 10/17/24 20:29 Completed Transfer Order Routine Transfer 10/18/24 Ordered Medication Summary Generic Name Dose Route Start Last Admin Trade Name Freq PRN Reason Stop Dose Admin Sodium Chloride 1,000 mls @ 250 mls/hr 10/17/24 20:00 10/17/24 20:36 Sodium Chloride 0.9% 1000 Ml IV 11/16/24 19:59 250 mls/hr .Q4H ZARIA Administration Discontinued Medications Generic Name Dose Route Start Last Admin Trade Name Freq PRN Reason Stop Dose Admin Morphine Sulfate 4 mg 10/17/24 19:55 10/17/24 20:41 Morphine Sulfate 4 Mg/Ml Injection IV 10/17/24 19:56 4 mg STAT ONE Administration Morphine Sulfate Confirm 10/17/24 20:34 Morphine Sulfate 4 Mg/Ml Injection Administered 10/17/24 20:35 Dose 4 mg .ROUTE .STK-MED ONE Morphine Sulfate 4 mg 10/18/24 00:25 Morphine Sulfate 4 Mg/Ml Injection IV 10/18/24 00:26 STAT ONE Ondansetron HCl 4 mg 10/17/24 19:55 10/17/24 20:41 Ondansetron Hcl 4 Mg/2 Ml Vial IV 10/17/24 19:56 4 mg STAT ONE Administration Ondansetron HCl Confirm 10/17/24 20:34 Ondansetron Hcl 4 Mg/2 Ml Vial Administered 10/17/24 20:35 Dose 4 mg .ROUTE .[facility] ONE Lab/Rad Data: Laboratory Result Diagrams 10/17/24 20:10 10/17/24 20:10 Laboratory Results 10/18/24 10/17/24 10/17/24 Range/Units 00:12 20:29 20:10 WBC (4.23-9.07) x10^3/uL RBC (4.63-6.08) x10^6/uL Hgb (13.7-17.5) g/dL Hct (40.1-51.0) % MCV (79.0-92.2) fL MCH (25.7-32.2) pg MCHC (32.3-36.5) g/dL RDW (11.6-14.4) % Plt Count (163-337) x10^3/uL MPV (9.4-12.4) fL Gran % (34.0-67.9) % Immature Gran % (Auto) (0.001-0.429) % Nucleat RBC Rel Count (0.00-0.2) % Eos # (Auto) (0.04-0.54) x10^3/uL Immature Gran # (Auto) (0.001-0.031) x10^3u/L Absolute Lymphs (auto) (1.32-3.57) x10^3/uL Absolute Monos (auto) (0.30-0.82) x10^3/uL Absolute Nucleated RBC (0.00-0.012) x10^3u/L Lymphocytes % (21.8-53.1) % Monocytes % (5.3-12.2) % Eosinophils % (0.8-7.0) % Basophils % (0.2-1.2) % Absolute Granulocytes (1.78-5.38) x10^3/uL Basophils # (0.01-0.08) x10^3/uL Sodium (135-145) mmol/L Potassium (3.5-5.1) mmol/L Chloride (98-107) mmol/L Carbon Dioxide (22-30) mmol/L Anion Gap (5-15) MEQ/L BUN (9-20) mg/dL Creatinine (0.66-1.25) mg/dL Estimated GFR ML/MIN Glucose (74-106) mg/dL Calcium (8.4-10.2) mg/dL Total Bilirubin (0.2-1.3) mg/dL AST (17-59) U/L ALT (0-50) U/L Alkaline Phosphatase (38-126) U/L Troponin I 0.020 0.019 (0.000-0.033) ng/mL Serum Total Protein (6.3-8.2) g/dL Albumin (3.5-5.0) g/dL Lipase (23-300) U/L Urine Color Yellow (Yellow) Urine Appearance Clear (Clear) Urine pH 6.5 (4.6-8.0) Ur Specific Andreas 1.015 (1.005-1.030) Urine Protein >=1000 A (Negative) Urine Glucose (UA) 100 A (Negative) mg/dL Urine Ketones Negative (Negative) Urine Blood Negative (Negative) Urine Nitrite Negative (Negative) Urine Bilirubin Negative (Negative) Urine Urobilinogen 0.2 (0.2) mg/dL Ur Leukocyte Esterase Negative (Negative) U Hyaline Cast (Auto) NONE SEEN (0-2) /LPF Urine Microscopic RBC 0-2 (0-5) /HPF Urine Microscopic WBC 0-2 (0-5) /HPF Ur Epithelial Cells None Seen (None Seen) /HPF Urine Bacteria None Seen (None Seen) /HPF Urine Culture Reflexed NO (NO) 10/17/24 10/17/24 Range/Units 20:10 20:10 WBC 6.1 (4.23-9.07) x10^3/uL RBC 3.61 L (4.63-6.08) x10^6/uL Hgb 10.6 L (13.7-17.5) g/dL Hct 33.8 L (40.1-51.0) % MCV 93.6 H (79.0-92.2) fL MCH 29.4 (25.7-32.2) pg MCHC 31.4 L (32.3-36.5) g/dL RDW 14.2 (11.6-14.4) % Plt Count 155 L (163-337) x10^3/uL MPV 11.2 (9.4-12.4) fL Gran % 75.5 H (34.0-67.9) % Immature Gran % (Auto) 0.3 (0.001-0.429) % Nucleat RBC Rel Count 0.0 (0.00-0.2) % Eos # (Auto) 0.10 (0.04-0.54) x10^3/uL Immature Gran # (Auto) 0.02 (0.001-0.031) x10^3u/L Absolute Lymphs (auto) 0.91 L (1.32-3.57) x10^3/uL Absolute Monos (auto) 0.45 (0.30-0.82) x10^3/uL Absolute Nucleated RBC 0.00 (0.00-0.012) x10^3u/L Lymphocytes % 15.0 L (21.8-53.1) % Monocytes % 7.4 (5.3-12.2) % Eosinophils % 1.6 (0.8-7.0) % Basophils % 0.2 (0.2-1.2) % Absolute Granulocytes 4.58 (1.78-5.38) x10^3/uL Basophils # 0.01 (0.01-0.08) x10^3/uL Sodium 140 (135-145) mmol/L Potassium 4.7 (3.5-5.1) mmol/L Chloride 111 H (98-107) mmol/L Carbon Dioxide 25 (22-30) mmol/L Anion Gap 9.4 (5-15) MEQ/L BUN 38 H (9-20) mg/dL Creatinine 1.70 H (0.66-1.25) mg/dL Estimated GFR 43.4 ML/MIN Glucose 165 H (74-106) mg/dL Calcium 8.9 (8.4-10.2) mg/dL Total Bilirubin 0.20 (0.2-1.3) mg/dL AST 26 (17-59) U/L ALT 22 (0-50) U/L Alkaline Phosphatase 85 (38-126) U/L Troponin I (0.000-0.033) ng/mL Serum Total Protein 6.0 L (6.3-8.2) g/dL Albumin 3.5 (3.5-5.0) g/dL Lipase 62 (23-300) U/L Urine Color (Yellow) Urine Appearance (Clear) Urine pH (4.6-8.0) Ur Specific Andreas (1.005-1.030) Urine Protein (Negative) Urine Glucose (UA) (Negative) mg/dL Urine Ketones (Negative) Urine Blood (Negative) Urine Nitrite (Negative) Urine Bilirubin (Negative) Urine Urobilinogen (0.2) mg/dL Ur Leukocyte Esterase (Negative) U Hyaline Cast (Auto) (0-2) /LPF Urine Microscopic RBC (0-5) /HPF Urine Microscopic WBC (0-5) /HPF Ur Epithelial Cells (None Seen) /HPF Urine Bacteria (None Seen) /HPF Urine Culture Reflexed (NO) - Progress Progress: improved Progress Note: 69-year-old male presents to emergency department for evaluation of abdominal pain primarily periumbilical right lower quadrant. Laboratory workup essentially nonremarkable. CT shows some thickening of the bladder wall and perinephric fat stranding. However no UTI. Patient received morphine for pain control. Patient reassessed. Patient states the pain is still present. I was concerned for possible ischemic bowel I considered ordering a CTA however due to patient's poor kidney function unable to perform CT study. Lactic acid ordered. No leukocytosis. Lactic acid result pending. In light of patient's ongoing symptoms we decided to admit for observation. Case discussed with Dr. Pa hospitalist who accepts admission to observation at 12:48 AM. Plan of care discussed with patient. He agrees to admission to [facility] for further evaluation and treatment. Portions of this note were created with voice recognition technology. There may be grammatical, spelling, punctuation or sound alike errors Complexity of problem addressed is moderate acute complicated no critical care time. Complex of data reviewed and analyzed is extensive. Test ordered chest reviewed results analyzed and correlated clinically with history and physical exam. Management discussed with hospitalist who excepts admission to observation. Risk of complication and or risk of morbidity/mortality of patient management is high. Patient requires hospitalization for further evaluation and treatment. Vital stable. Time spent to admit patient is approximately 15 minutes. Plan of care established for shared decision making. No social determinants of health present to impede follow-up. Portions of this note were created with voice recognition technology. There may be grammatical, spelling, punctuation or sound alike errors 10/18/24 00:53 Discussed with DrCassandra: Hollis (Case discussed with Dr. Du at 12:48 AM) Counseled pt/family regarding: lab results, diagnosis - Departure Clinical Impression: Chronic renal insufficiency, Abdominal pain, Proteinuria, Glucosuria, Enlarged prostate, Cholelithiasis, Perinephric fat stranding, Small hiatal hernia Condition: Stable Critical Care Time: No Referrals: NICCI CLAROS MD [Primary Care Provider] - Follow up/PCP as directed
[2024-10-17 20:16] LABS: Absolute Neutrophil Ct (ANC) 4.58 x10^3/uL (1.78-5.38); BASOPHIL % 0.2 % (0.2-1.2); Basophil (Absolute #) 0.01 x10^3/uL (0.01-0.08); Eosinophil % 1.6 % (0.8-7.0); Hematocrit 33.8 % (40.1-51.0); Hemoglobin 10.6 g/dL (13.7-17.5); IMMATURE GRAN # 0.02 x10^3u/L (0.001-0.031); IMMATURE GRAN % 0.3 % (0.001-0.429); Lymphocyte (Absolute #) 0.91 x10^3/uL (1.32-3.57); Mean Cell Volume 93.6 fL (79.0-92.2); Mean Corpuscular Hemoglobin 29.4 pg (25.7-32.2); Mean Corpuscular Hgb Concent. 31.4 g/dL (32.3-36.5); Mean Platelet Volume 11.2 fL (9.4-12.4); Monocyte (Absolute #) 0.45 x10^3/uL (0.30-0.82); Monocytes % 7.4 % (5.3-12.2); Neutrophil % 75.5 % (34.0-67.9); Platelet Count 155 x10^3/uL (163-337); Red Blood Count 3.61 x10^6/uL (4.63-6.08); Red Cell Distribution Width 14.2 % (11.6-14.4); White Blood Count 6.1 x10^3/uL (4.23-9.07)
[2024-10-17 20:33] LABS: ALBUMIN 3.5 g/dL (3.5-5.0); ANION GAP 9.4 MEQ/L (5-15); BILIRUBIN,TOTAL 0.2 mg/dL (0.2-1.3); Calcium 8.9 mg/dL (8.4-10.2); Creatinine 1 1.7 mg/dL (0.66-1.25); EST GLOMERULAR FILTRATION RATE 43.4 ML/MIN; Potassium 4.7 mmol/L (3.5-5.1)
[2024-10-17] MEDS ORDERED: MORPHINE SULFATE 4 MG INJ ONE (20:34)
[2024-10-17] MEDS ORDERED: Sodium Chloride 0.9% 1000 ML 1,000 ML ONE (20:34)
[2024-10-17] MEDS ORDERED: Zofran 4 MG/2 ML VIAL ONE (20:34)
[2024-10-17] MEDS: Sodium Chloride 0.9% 1000 ML 1,000 ML IV SCH (20:36)
[2024-10-17] MEDS: Zofran 4 MG/2 ML VIAL IV ONE (20:41)
[2024-10-17] MEDS: MORPHINE SULFATE 4 MG INJ IV ONE (20:41)
[2024-10-17 20:46] LABS: Appearance Clear (Clear); Bacteria None Seen /HPF (None Seen); Bilirubin Negative (Negative); Blood Negative (Negative); Epithelial Cells None Seen /HPF (None Seen); Glucose, Urine 100 mg/dL (Negative); Hyaline Casts NONE SEEN /LPF (0-2); Ketones Negative (Negative); Leukocyte Esterase Negative (Negative); Nitrite Negative (Negative); Ph 6.5 (4.6-8.0); Protein,Urine Dip >=1000 (Negative); RBC 0-2 /HPF (0-5); Specific Gravity 1.015 (1.005-1.030); Urobilinogen 0.2 mg/dL (0.2); WBC 0-2 /HPF (0-5)
--- NOTE | 2024-10-17 23:56 | XRAY ---
CLINICAL HISTORY: protective COMPARISON: none TECHNIQUE: Non-contrast CT of the abdomen and pelvis was performed, with the following protocol: axial images, and reconstructed coronal and sagittal images. One of the following dose reduction techniques was utilized for this exam: Automated exposure control, adjustment of the mA and/or kV according to patient size, and use of iterative reconstruction. FINDINGS: Lung bases: Right lung calcified granulomas and mild right pleural reaction Abdomen: Liver: Normal in size, shape, and density. No focal lesions, cysts, or masses were identified. Gallbladder and Biliary System: The gallbladder is normal in size and shape. Multiple stones are seen. No pericholecystic fluid collection Pancreas: Pancreatic head, body, and tail are visualized and appear normal in size and density. No pancreatic masses or calcifications were noted. Spleen: Normal in size, shape, and density. A small calcified granuloma is seen. Kidneys and Adrenal Glands: Both kidneys are normal in size, shape, and position. Cortical thickness is within normal limits. No renal calculi or hydronephrosis. Mild stranding of the perinephric fat planes bilaterally. Adrenal glands are unremarkable. Abdominal Aorta and Vessels: The abdominal aorta and major branches are patent shows mild atherosclerosis. Pelvis: Urinary Bladder: Mild circumferential vesical mural thickening. No stones or masses Prostate: Mild enlargement Peritoneal and Retroperitoneal Structures: No free fluid or abnormal fluid collections were identified within the abdomen or pelvis. No lymphadenopathy was noted. Bowel: Small hiatus hernia The visualized bowel loops are normal in caliber and appearance. No evidence of bowel obstruction or wall thickening. Normal appendix Bones and Soft Tissues: Lumbar degenerative changes with levoconvex lumbar scoliosis IMPRESSION: 1. Right lung calcified granulomas and mild right pleural reaction 2. Multiple gall bladder stones 3. Small splenic calcified granuloma 4. Mild stranding of the perinephric fat planes bilaterally likely sequel of prior inflammatory/infectious process 5. Mild chronic cystitis 6. Mild prostatic enlargement 7. Small hiatus hernia Electronically Signed by: Lon Kamara MD. (10/17/2024 23:52:33 EST)
[2024-10-18] MEDS ORDERED: MORPHINE SULFATE 4 MG INJ ONE (01:07)
[2024-10-18] MEDS: MORPHINE SULFATE 4 MG INJ IV ONE (01:08)
[2024-10-18] MEDS ORDERED: TYLENOL 325 MG PO PRN (02:13)
[2024-10-18] MEDS ORDERED: HUMALOG SQ PRN (02:13)
[2024-10-18] MEDS ORDERED: MORPHINE SULFATE 4 MG INJ IV PRN (02:16)
[2024-10-18] MEDS: PROTONIX 40 MG IV IV ONE (03:00)
--- NOTE | 2024-10-18 04:18 | PCM.HP ---
History of Present Illness - Chief Complaint Chief Complaint: abdominal pain Date: 10/18/24 History of Present Illness: 69-year-old man with history of HFrEF, CAD, DM2, COPD, CKD 3, and HTN, who presents with abdominal pain. He notes 1 to 2 days of burning and stabbing, intermittent, epigastric to periumbilical abdominal pain, initially relieved by Pepto-Bismol, and relieved by water and small amounts of food. Not affected by change in position. Associated with nausea but no vomiting or diarrhea. Denies fevers or sick contacts. He denies chest pain, orthopnea, PND, dyspnea, or edema. Pain was unable to be controlled in the ED, so patient was admitted. - Review of Systems All Other Systems: Reviewed and Negative Medications & Allergies Home Medications: Home Medication List Amlodipine Besylate 5 mg [Norvasc 5 mg] 5 mg PO DAILY 30 Days #30 tablet 05/09/24 [Rx Confirmed 10/18/24] Aspirin EC 81 mg [Ecotrin 81 mg] 81 mg PO DAILY 30 Days #30 tablet 05/09/24 [Rx Confirmed 10/18/24] Metoprolol Succinate 50 mg [Toprol Xl 50 MG] 50 mg PO DAILY 30 Days #30 tablet 05/09/24 [Rx Confirmed 10/18/24] Simvastatin 10 mg [Zocor 10MG] 10 mg PO DAILY 30 Days #30 tablet 05/09/24 [Rx Confirmed 10/18/24] Topiramate 25 mg [Topamax 25 MG] 50 mg PO DAILY 30 Days #60 cap 05/09/24 [Rx Confirmed 10/18/24] Ezetimibe 10 mg [Zetia 10 MG] 10 mg PO DAILY 10/18/24 [History Confirmed 10/18/24] Allergies/Adverse Reactions: Allergies Allergy/AdvReac Type Severity Reaction Status Date / Time gabapentin AdvReac Verified 10/17/24 18:22 - Past Medical History Past Medical History: Yes Neurological History: No Pertinent History ENT History: No Pertinent History Cardiac History: Angina, Congestive Heart Failure, Coronary Artery Disease, High Cholesterol, Hypertension, Myocardial Infarction (MT) Respiratory History: COPD, Pulmonary Embolism Endocrine Medical History: Diabetes Type II Musculoskelatal History: Osteoarthritis GI Medical History: No Pertinent History History: No Pertinent History Pyscho-Social History: Depression Male Reproductive Disorders: No Pertinent History Comment: fractured ribs, anemia, gout - Past Surgical History Past Surgical History: Yes Neuro Surgical History: No Pertinent History Cardiac History: CABG, Cardiac Catheterization, Cardiac Stent, Other Respiratory Surgery: Chest Surgery GI Surgical History: No Pertinent History Genitourinary Surgical Hx: No Pertinent History Musculskeletal Surgical Hx: Orthopedic Surgery Male Surgical History: No Pertinent History Other Surgical History: umbilical, triple bypass, L shoulder. polyp removal, right 4th/5th toe amputation Significant Family History: no pertinent family hx - Social History Smoking Status: Current every day smoker How long have you smoked: 53 Exposure to second hand smoke: No Alcohol: None Drug Use: none - Social Determinants of Health Will the patient participate in the screening: Yes Do you worry about a steady place to live?: No Do you have any problems with any of the following?: No known problems In the past 12 months,have you had to go without utilities?: No Have you or anyone in your house had to go without enough: No Transportation Issues: No Has anyone in your support network made you feel unsafe?: No Does the patient want assistance with any of the above?: No - Physical Exam Vital Signs: Vital Signs - 24 hr Temp Pulse Resp BP BP Pulse Ox 10/18/24 04:00 97.1 F 70 18 93/52 97 10/18/24 01:37 97.6 F 66 17 155/73 96 10/18/24 01:00 63 18 152/97 97 10/18/24 00:59 98 10/18/24 00:50 96 10/18/24 00:40 95 10/18/24 00:33 96 10/18/24 00:00 57 L 18 141/76 97 10/17/24 23:31 157/89 97 10/17/24 23:01 58 L 17 153/80 96 10/17/24 22:30 128/68 82 L 10/17/24 22:00 60 18 138/74 96 10/17/24 21:30 137/75 97 10/17/24 21:00 59 L 17 145/71 100 10/17/24 20:30 137/75 97 10/17/24 20:24 60 19 146/75 98 10/17/24 20:00 139/75 10/17/24 19:30 130/70 99 10/17/24 19:00 61 19 117/64 98 10/17/24 18:32 136/78 97 10/17/24 18:29 97.3 F 66 20 136/78 96 General Appearance: no apparent distress Neurologic Exam: alert, oriented x 3, sensation nml, No motor deficits Eye Exam: eyes nml inspection, No scleral icterus Ears, Nose, Throat Exam: normal ENT inspection, moist mucous membranes Neck Exam: supple, full range of motion Respiratory Exam: normal breath sounds, lungs clear, other (On room air) Cardiovascular Exam: regular rate/rhythm, No murmur, No edema Gastrointestinal/Abdomen Exam: tenderness (Mild diffuse tenderness without guarding or rebound), No distention Back Exam: normal inspection, normal range of motion Extremity Exam: normal range of motion, No joint swelling Skin Exam: normal color, No rash Results - Labs Lab/Micro Results: Lab Results-Last 24 Hours 10/17/24 10/17/24 10/17/24 Range/Units 20:10 20:10 20:10 WBC 6.1 (4.23-9.07) x10^3/uL RBC 3.61 L (4.63-6.08) x10^6/uL Hgb 10.6 L (13.7-17.5) g/dL Hct 33.8 L (40.1-51.0) % MCV 93.6 H (79.0-92.2) fL MCH 29.4 (25.7-32.2) pg MCHC 31.4 L (32.3-36.5) g/dL RDW 14.2 (11.6-14.4) % Plt Count 155 L (163-337) x10^3/uL MPV 11.2 (9.4-12.4) fL Gran % 75.5 H (34.0-67.9) % Immature Gran % (Auto) 0.3 (0.001-0.429) % Nucleat RBC Rel Count 0.0 (0.00-0.2) % Eos # (Auto) 0.10 (0.04-0.54) x10^3/uL Immature Gran # (Auto) 0.02 (0.001-0.031) x10^3u/L Absolute Lymphs (auto) 0.91 L (1.32-3.57) x10^3/uL Absolute Monos (auto) 0.45 (0.30-0.82) x10^3/uL Absolute Nucleated RBC 0.00 (0.00-0.012) x10^3u/L Lymphocytes % 15.0 L (21.8-53.1) % Monocytes % 7.4 (5.3-12.2) % Eosinophils % 1.6 (0.8-7.0) % Basophils % 0.2 (0.2-1.2) % Absolute Granulocytes 4.58 (1.78-5.38) x10^3/uL Basophils # 0.01 (0.01-0.08) x10^3/uL Sodium 140 (135-145) mmol/L Potassium 4.7 (3.5-5.1) mmol/L Chloride 111 H (98-107) mmol/L Carbon Dioxide 25 (22-30) mmol/L Anion Gap 9.4 (5-15) MEQ/L BUN 38 H (9-20) mg/dL Creatinine 1.70 H (0.66-1.25) mg/dL Estimated GFR 43.4 ML/MIN Glucose 165 H (74-106) mg/dL Lactic Acid (0.4-2.0) Calcium 8.9 (8.4-10.2) mg/dL Total Bilirubin 0.20 (0.2-1.3) mg/dL AST 26 (17-59) U/L ALT 22 (0-50) U/L Alkaline Phosphatase 85 (38-126) U/L Troponin I 0.019 (0.000-0.033) ng/mL Serum Total Protein 6.0 L (6.3-8.2) g/dL Albumin 3.5 (3.5-5.0) g/dL Lipase 62 (23-300) U/L Urine Color (Yellow) Urine Appearance (Clear) Urine pH (4.6-8.0) Ur Specific [place] (1.005-1.030) Urine Protein (Negative) Urine Glucose (UA) (Negative) mg/dL Urine Ketones (Negative) Urine Blood (Negative) Urine Nitrite (Negative) Urine Bilirubin (Negative) Urine Urobilinogen (0.2) mg/dL Ur Leukocyte Esterase (Negative) U Hyaline Cast (Auto) (0-2) /LPF Urine Microscopic RBC (0-5) /HPF Urine Microscopic WBC (0-5) /HPF Ur Epithelial Cells (None Seen) /HPF Urine Bacteria (None Seen) /HPF Urine Culture Reflexed (NO) 10/17/24 10/18/24 10/18/24 Range/Units 20:29 00:12 01:12 WBC (4.23-9.07) x10^3/uL RBC (4.63-6.08) x10^6/uL Hgb (13.7-17.5) g/dL Hct (40.1-51.0) % MCV (79.0-92.2) fL MCH (25.7-32.2) pg MCHC (32.3-36.5) g/dL RDW (11.6-14.4) % Plt Count (163-337) x10^3/uL MPV (9.4-12.4) fL Gran % (34.0-67.9) % Immature Gran % (Auto) (0.001-0.429) % Nucleat RBC Rel Count (0.00-0.2) % Eos # (Auto) (0.04-0.54) x10^3/uL Immature Gran # (Auto) (0.001-0.031) x10^3u/L Absolute Lymphs (auto) (1.32-3.57) x10^3/uL Absolute Monos (auto) (0.30-0.82) x10^3/uL Absolute Nucleated RBC (0.00-0.012) x10^3u/L Lymphocytes % (21.8-53.1) % Monocytes % (5.3-12.2) % Eosinophils % (0.8-7.0) % Basophils % (0.2-1.2) % Absolute Granulocytes (1.78-5.38) x10^3/uL Basophils # (0.01-0.08) x10^3/uL Sodium (135-145) mmol/L Potassium (3.5-5.1) mmol/L Chloride (98-107) mmol/L Carbon Dioxide (22-30) mmol/L Anion Gap (5-15) MEQ/L BUN (9-20) mg/dL Creatinine (0.66-1.25) mg/dL Estimated GFR ML/MIN Glucose (74-106) mg/dL Lactic Acid 0.8 (0.4-2.0) Calcium (8.4-10.2) mg/dL Total Bilirubin (0.2-1.3) mg/dL AST (17-59) U/L ALT (0-50) U/L Alkaline Phosphatase (38-126) U/L Troponin I 0.020 (0.000-0.033) ng/mL Serum Total Protein (6.3-8.2) g/dL Albumin (3.5-5.0) g/dL Lipase (23-300) U/L Urine Color Yellow (Yellow) Urine Appearance Clear (Clear) Urine pH 6.5 (4.6-8.0) Ur Specific [place] 1.015 (1.005-1.030) Urine Protein >=1000 A (Negative) Urine Glucose (UA) 100 A (Negative) mg/dL Urine Ketones Negative (Negative) Urine Blood Negative (Negative) Urine Nitrite Negative (Negative) Urine Bilirubin Negative (Negative) Urine Urobilinogen 0.2 (0.2) mg/dL Ur Leukocyte Esterase Negative (Negative) U Hyaline Cast (Auto) NONE SEEN (0-2) /LPF Urine Microscopic RBC 0-2 (0-5) /HPF Urine Microscopic WBC 0-2 (0-5) /HPF Ur Epithelial Cells None Seen (None Seen) /HPF Urine Bacteria None Seen (None Seen) /HPF Urine Culture Reflexed NO (NO) - Radiology Impressions Radiology Exams & Impressions: Radiology Procedures Category Date Time Status ABDOMEN AND PELVIS W/0 CONTRAS [CT] Stat Exams 10/17/24 19:[address] abdomen/pelvis report not available, but per ED physician, no acute findings. Assessment/Plan (1) Abdominal pain Current Visit: Yes Status: Acute Assessment & Plan: 69-year-old man with history of HFrEF, CAD, DM2, COPD, CKD 3, and HTN, here with intractable abdominal pain. ## Abdominal pain suspect this is most likely due to gastritis, ulcer, or gastric reflux. Patient describes pain in the epigastrium, relieved by eating, consistent with acid based disorder. Although he has a strong cardiac history, his troponins have been negative. Labs and imaging are generally unremarkable. Start Protonix; give IV dose now, then 40 mg p.o. daily PRN calcium carbonate PRN morphine for pain ## Type 2 diabetes only on oral medications at home. Place on low-dose sliding scale insulin Diabetic diet ## CKD stage III appears to be more or less at his baseline creatinine of 1.7. Of note, patient was on torsemide during the admission, but it appears to been stopped. Repeat BMP in the morning ## Chronic systolic heart failure EF 30 to 35% on most recent echo over the summer. Currently euvolemic, despite no longer being on torsemide. Follow volume status Continue Toprol-XL 50 Try to follow-up to see why patient is no longer on JAZZY inhibitor/ARB ## Hypertension blood pressure controlled. Continue Norvasc 5 CODE STATUS: Full code (note, this is different from last admission) Prophylaxis: Low risk, encourage ambulation Diet: Diabetic Dispo: Place in observation Code(s): R10.9 - UNSPECIFIED ABDOMINAL PAIN Telemedicine Encounter - Telemedicine Encounter Telemedicine Encounter: "The entirety of this encounter was performed via Telemedicine" This visit was performed using real-time audio and video connection between my location and thepatients locationwith the assistance of a surrogateat the patients location. Written or verbal consent was obtained from the patient/guardian to perform this visit using[facility] technology. Any patient questions regarding the telemedicine interaction were answered.
[2024-10-18 05:09] LABS: Hematocrit 30.8 % (40.1-51.0); Hemoglobin 9.5 g/dL (13.7-17.5); Mean Cell Volume 94.5 fL (79.0-92.2); Mean Corpuscular Hemoglobin 29.1 pg (25.7-32.2); Mean Corpuscular Hgb Concent. 30.8 g/dL (32.3-36.5); Mean Platelet Volume 11.5 fL (9.4-12.4); Platelet Count 142 x10^3/uL (163-337); Red Blood Count 3.26 x10^6/uL (4.63-6.08); Red Cell Distribution Width 14.3 % (11.6-14.4)
[2024-10-18 05:34] LABS: ANION GAP 7.8 MEQ/L (5-15); BILIRUBIN,TOTAL 0.2 mg/dL (0.2-1.3); Calcium 8.3 mg/dL (8.4-10.2); Creatinine 1 1.73 mg/dL (0.66-1.25); EST GLOMERULAR FILTRATION RATE 42.5 ML/MIN; Total Protein 5.6 g/dL (6.3-8.2)
[2024-10-18] MEDS: TOPIRAMATE PO SCH (09:31)
[2024-10-18] MEDS: Toprol Xl 50 MG PO SCH (09:31)
[2024-10-18] MEDS: NORVASC 5 MG PO SCH (09:31)
[2024-10-18] MEDS: Protonix 40MG Tablet PO SCH (09:31)
[2024-10-18] MEDS: ECOTRIN 81 MG PO SCH (09:31)
[2024-10-18] MEDS: Zocor 10MG PO SCH (09:31)
[2024-10-18] MEDS: Zetia 10 MG PO SCH (09:31)
[2024-10-18] MEDS: HEPARIN 5000 UNITS/0.5 ML (HIGH RISK MED) SQ SCH (09:32)
[2024-10-18] MEDS ORDERED: NON-FORMULARY ITEM (Topiramate 25 Mg*** [Topamax 25 Mg***] 25 MG Capsule) PO SCH (10:00)
--- NOTE | 2024-10-18 16:33 | XRAY ---
Indication: Gallstones. Two-dimensional gallbladder sonogram performed. Comparison: May 17, 2018. Pancreas not well-seen due to overlying bowel gas. Visualized gallbladder normal distended with a few new small gallstones, largest 1.6 cm. No abnormal gallbladder wall thickening or pericholecystic fluid. Common bile duct measures 3.2 mm. No intrahepatic biliary distention. Remaining visualized liver sonographically unremarkable. Right kidney measures 12.6 x 6.5 x 5.0 cm with new 1.5 cm mid renal cyst. Impression: 1. Nonvisualization pancreas. 2. New cholelithiasis without cholecystitis. 3. New right renal cyst.
[2024-10-18] MEDS: Tums EX 750 MG PO PRN (21:08)
[2024-10-18] MEDS: MAALOX ES 30 ML UNIT DOSE PO PRN (22:27)
[2024-10-18] MEDS: PHENERGAN 25 MG PO PRN (23:08)
[2024-10-19 05:12] LABS: Absolute Neutrophil Ct (ANC) 3.36 x10^3/uL (1.78-5.38); Basophil (Absolute #) 0 x10^3/uL (0.01-0.08); Eosinophil % 1.7 % (0.8-7.0); Eosinophil (Absolute #) 0.08 x10^3/uL (0.04-0.54); Hematocrit 30.7 % (40.1-51.0); Hemoglobin 9.7 g/dL (13.7-17.5); IMMATURE GRAN # 0.01 x10^3u/L (0.001-0.031); IMMATURE GRAN % 0.2 % (0.001-0.429); Lymphocyte (Absolute #) 0.85 x10^3/uL (1.32-3.57); Lymphocytes % 18.4 % (21.8-53.1); Mean Cell Volume 93.3 fL (79.0-92.2); Mean Corpuscular Hemoglobin 29.5 pg (25.7-32.2); Mean Corpuscular Hgb Concent. 31.6 g/dL (32.3-36.5); Monocyte (Absolute #) 0.33 x10^3/uL (0.30-0.82); Monocytes % 7.1 % (5.3-12.2); Neutrophil % 72.6 % (34.0-67.9); Platelet Count 145 x10^3/uL (163-337); Red Blood Count 3.29 x10^6/uL (4.63-6.08); Red Cell Distribution Width 14.5 % (11.6-14.4); White Blood Count 4.6 x10^3/uL (4.23-9.07)
[2024-10-19 05:32] LABS: ALBUMIN 3.1 g/dL (3.5-5.0); ANION GAP 7.9 MEQ/L (5-15); BILIRUBIN,TOTAL 0.3 mg/dL (0.2-1.3); Calcium 8.5 mg/dL (8.4-10.2); Creatinine 1 1.97 mg/dL (0.66-1.25); EST GLOMERULAR FILTRATION RATE 36.3 ML/MIN; Potassium 4.2 mmol/L (3.5-5.1); Total Protein 5.7 g/dL (6.3-8.2)
--- NOTE | 2024-10-19 05:32 | PCM.NOTE ---
Date and Time: 10/19/24 0527 Subjective Assessment: 69-year-old man with history of HFrEF, CAD, DM2, COPD, CKD 3, and HTN, who presented 10/18/23 with abdominal pain. He notes 1 to 2 days of burning and stabbing, intermittent, epigastric to periumbilical abdominal pain, initially relieved by Pepto-Bismol, and relieved by water and small amounts of food. Not a ffected by change in position. Associated with nausea but no vomiting or diarrhea. CT with multiple gallstones. GB US showing cholelithiasis no acute cholecystitis. Surgery consulted. 10/19/24: Met with patient bedside. Endorses continued abdominal pain and n/v last night. GB and CT showing multiple gallstones. Surgery consulted and pending evaluation. Creat is elevated at 1.97 today- may be secondary to vomiting. Will start IVF. Baseline creat around 1.7. - Review of Systems Constitutional: Fatigue Eyes: No Symptoms Ears, Nose, & Throat: No Symptoms Respiratory: No Symptoms Cardiac: No Symptoms Abdominal/Gastrointestinal: Abdominal Pain, Nausea, Vomiting Genitourinary Symptoms: No Symptoms Musculoskeletal: No Symptoms Skin: No Symptoms Neurological: No Symptoms Psychological: No Symptoms Endocrine: No Symptoms Hematologic/Lymphatic: No Symptoms Immunological/Allergic: No Symptoms Objective Exam General Appearance: no apparent distress Neurologic Exam: alert, oriented x 3, cooperative Skin Exam: normal color Eye Exam: PERRL Ears, Nose, Throat Exam: normal ENT inspection Neck Exam: normal inspection Respiratory Exam: normal breath sounds, lungs clear Cardiovascular Exam: regular rate/rhythm, normal heart sounds Gastrointestinal/Abdomen Exam: soft, normal bowel sounds, tenderness (TTP X 4 quads) Extremity Exam: normal inspection Back Exam: normal inspection Male Genitalia Exam: deferred Rectal Exam: deferred Objective Data Vital Signs: Vital Signs - 24 hr Temp Pulse Resp BP Pulse Ox 10/19/24 04:00 97.3 F 58 L 18 152/67 96 10/18/24 23:50 97.1 F 64 18 167/73 95 10/18/24 20:00 97.6 F 68 17 128/62 94 L 10/18/24 15:29 97.4 F 65 14 138/66 97 10/18/24 11:39 97.6 F 61 16 149/70 98 10/18/24 07:24 97.9 F 58 L 16 154/73 96 Pain Assessment - Last Documented Pain Intensity 0 Pain Scale Used 0-10 Pain Scale Intake and Output: Intake & Output 10/16/24 10/17/24 10/18/24 10/19/24 11:59 11:59 11:59 11:59 Intake Total 820 720 Output Total 300 2014 Balance 520 -1295 Weight 101 kg Lab Results: Lab Results-Last 24 Hours 10/18/24 10/18/24 10/18/24 Range/Units 04:55 04:55 07:33 WBC 5.0 (4.23-9.07) x10^3/uL RBC 3.26 L (4.63-6.08) x10^6/uL Hgb 9.5 L (13.7-17.5) g/dL Hct 30.8 L (40.1-51.0) % MCV 94.5 H (79.0-92.2) fL MCH 29.1 (25.7-32.2) pg MCHC 30.8 L (32.3-36.5) g/dL RDW 14.3 (11.6-14.4) % Plt Count 142 L (163-337) x10^3/uL MPV 11.5 (9.4-12.4) fL Gran % (34.0-67.9) % Immature Gran % (Auto) (0.001-0.429) % Nucleat RBC Rel Count (0.00-0.2) % Eos # (Auto) (0.04-0.54) x10^3/uL Immature Gran # (Auto) (0.001-0.031) x10^3u/L Absolute Lymphs (auto) (1.32-3.57) x10^3/uL Absolute Monos (auto) (0.30-0.82) x10^3/uL Absolute Nucleated RBC (0.00-0.012) x10^3u/L Lymphocytes % (21.8-53.1) % Monocytes % (5.3-12.2) % Eosinophils % (0.8-7.0) % Basophils % (0.2-1.2) % Absolute Granulocytes (1.78-5.38) x10^3/uL Basophils # (0.01-0.08) x10^3/uL Sodium 139 (135-145) mmol/L Potassium 4.0 (3.5-5.1) mmol/L Chloride 113 H (98-107) mmol/L Carbon Dioxide 23 (22-30) mmol/L Anion Gap 7.8 (5-15) MEQ/L BUN 33 H (9-20) mg/dL Creatinine 1.73 H (0.66-1.25) mg/dL Estimated GFR 42.5 ML/MIN Glucose 178 H (74-106) mg/dL POC Glucometer 147 H (74 to 106) mg/dL Calcium 8.3 L (8.4-10.2) mg/dL Total Bilirubin 0.20 (0.2-1.3) mg/dL AST 24 (17-59) U/L ALT 21 (0-50) U/L Alkaline Phosphatase 73 (38-126) U/L Serum Total Protein 5.6 L (6.3-8.2) g/dL Albumin 3.0 L (3.5-5.0) g/dL 10/18/24 10/18/24 10/18/24 Range/Units 11:36 16:20 21:10 WBC (4.23-9.07) x10^3/uL RBC (4.63-6.08) x10^6/uL Hgb (13.7-17.5) g/dL Hct (40.1-51.0) % MCV (79.0-92.2) fL MCH (25.7-32.2) pg MCHC (32.3-36.5) g/dL RDW (11.6-14.4) % Plt Count (163-337) x10^3/uL MPV (9.4-12.4) fL Gran % (34.0-67.9) % Immature Gran % (Auto) (0.001-0.429) % Nucleat RBC Rel Count (0.00-0.2) % Eos # (Auto) (0.04-0.54) x10^3/uL Immature Gran # (Auto) (0.001-0.031) x10^3u/L Absolute Lymphs (auto) (1.32-3.57) x10^3/uL Absolute Monos (auto) (0.30-0.82) x10^3/uL Absolute Nucleated RBC (0.00-0.012) x10^3u/L Lymphocytes % (21.8-53.1) % Monocytes % (5.3-12.2) % Eosinophils % (0.8-7.0) % Basophils % (0.2-1.2) % Absolute Granulocytes (1.78-5.38) x10^3/uL Basophils # (0.01-0.08) x10^3/uL Sodium (135-145) mmol/L Potassium (3.5-5.1) mmol/L Chloride (98-107) mmol/L Carbon Dioxide (22-30) mmol/L Anion Gap (5-15) MEQ/L BUN (9-20) mg/dL Creatinine (0.66-1.25) mg/dL Estimated GFR ML/MIN Glucose (74-106) mg/dL POC Glucometer 166 H 133 H 142 H (74 to 106) mg/dL Calcium (8.4-10.2) mg/dL Total Bilirubin (0.2-1.3) mg/dL AST (17-59) U/L ALT (0-50) U/L Alkaline Phosphatase (38-126) U/L Serum Total Protein (6.3-8.2) g/dL Albumin (3.5-5.0) g/dL 10/19/24 Range/Units 05:05 WBC 4.6 (4.23-9.07) x10^3/uL RBC 3.29 L (4.63-6.08) x10^6/uL Hgb 9.7 L (13.7-17.5) g/dL Hct 30.7 L (40.1-51.0) % MCV 93.3 H (79.0-92.2) fL MCH 29.5 (25.7-32.2) pg MCHC 31.6 L (32.3-36.5) g/dL RDW 14.5 H (11.6-14.4) % Plt Count 145 L (163-337) x10^3/uL MPV 12.0 (9.4-12.4) fL Gran % 72.6 H (34.0-67.9) % Immature Gran % (Auto) 0.2 (0.001-0.429) % Nucleat RBC Rel Count 0.0 (0.00-0.2) % Eos # (Auto) 0.08 (0.04-0.54) x10^3/uL Immature Gran # (Auto) 0.01 (0.001-0.031) x10^3u/L Absolute Lymphs (auto) 0.85 L (1.32-3.57) x10^3/uL Absolute Monos (auto) 0.33 (0.30-0.82) x10^3/uL Absolute Nucleated RBC 0.00 (0.00-0.012) x10^3u/L Lymphocytes % 18.4 L (21.8-53.1) % Monocytes % 7.1 (5.3-12.2) % Eosinophils % 1.7 (0.8-7.0) % Basophils % 0.0 L (0.2-1.2) % Absolute Granulocytes 3.36 (1.78-5.38) x10^3/uL Basophils # 0 L (0.01-0.08) x10^3/uL Sodium (135-145) mmol/L Potassium (3.5-5.1) mmol/L Chloride (98-107) mmol/L Carbon Dioxide (22-30) mmol/L Anion Gap (5-15) MEQ/L BUN (9-20) mg/dL Creatinine (0.66-1.25) mg/dL Estimated GFR ML/MIN Glucose (74-106) mg/dL POC Glucometer (74 to 106) mg/dL Calcium (8.4-10.2) mg/dL Total Bilirubin (0.2-1.3) mg/dL AST (17-59) U/L ALT (0-50) U/L Alkaline Phosphatase (38-126) U/L Serum Total Protein (6.3-8.2) g/dL Albumin (3.5-5.0) g/dL Radiology Exams: Radiology Procedures Category Date Time Status ABDOMEN AND PELVIS W/0 CONTRAS [CT] Stat Exams 10/17/24 19:55 Completed GALLBLADDER [US] Routine Exams 10/18/24 09:49 Completed Multi-Disciplinary Progress Notes: Multi-Disciplinary Progress Notes 10/18/24 12:43 Case Management Note by Valerie Allen PATIENT REPORTS THAT [facility] DOES NOT HAVE HIS MEDICAID ON FILE. GOT COPY OF PATIENT'S CARD- CALLED [facility]- THEY HAVE HIS MEDICAID ON FILE BUT IT DOES NOT COVER HIS MEDICARE COPAYS. HIS COPAYS ARE $1.55/MED. WILL NOTIFY PATIENT THAT HE, REGARDLESS OF MEDICAID STATUS, WILL OWE $1.55/MED S/W [facility] IN [facility]- SHE CALLS PATIENT MONTHLY, SHE D/W HIM 09/20 AND DENIED ANY NEEDS AND STATED HE HAD ALL OF HIS MEDICATIONS. SHE WILL FOLLOWUP WITH PATIENT TOMORROW Initialized on 10/18/24 12:43 - END OF NOTE Assessment/Plan (1) Abdominal pain Current Visit: Yes Status: Acute Assessment & Plan: -CT abdomen reviewed with multiple gallstone -GB US reviewed with cholelithiasis -surgery consulted and pending -protonix -pain control -WBC reviewed and WNL at 4.6- trend Code(s): R10.9 - UNSPECIFIED ABDOMINAL PAIN (2) Cholelithiasis Current Visit: Yes Status: Acute Assessment & Plan: -see plan for abdominal pain (3) CHF (congestive heart failure) Current Visit: Yes Status: Acute Assessment & Plan: Follow volume status Continue Toprol-XL 50 Code(s): I50.9 - HEART FAILURE, UNSPECIFIED (4) Diabetes mellitus Current Visit: Yes Status: Acute Assessment & Plan: -ADA diet -SSI -ACHS accuchecks Code(s): E11.9 - TYPE 2 DIABETES MELLITUS WITHOUT COMPLICATIONS (5) HTN (hypertension) Current Visit: Yes Status: Acute Assessment & Plan: -continue norvasc Code(s): I10 - ESSENTIAL (PRIMARY) HYPERTENSION (6) CKD (chronic kidney disease) Current Visit: No Status: Acute Assessment & Plan: -baseline creat at 1.7 - reviewed creat and at 1.97 - will start IVF at 100ml/hr -may be secondary to hypovolemia -monitor renal/lytes -avoid sona/arb - nephrotoxic agents CODE STATUS: Full code (note, this is different from last admission) Prophylaxis: Low risk, encourage ambulation Diet: Diabetic Dispo: Place in observation Code(s): N18.9 - CHRONIC KIDNEY DISEASE, UNSPECIFIED
[2024-10-19] MEDS: Sodium Chloride 0.9% 1000 ML 1,000 ML IV SCH (07:32)
--- NOTE | 2024-10-19 16:32 | PCM.CONS ---
History of Present Illness - Reason for Consult Chief Complaint: abdominal pain Requesting Provider: ABEBE BEEBE MD Consulting Provider: NATALIE HUANG MD History of Present Illness: is a 69 year old male. PMH listed. has had umbilcal hernia repair no other abdominal surgeries. egd c scope recently. had a "few centimeter polyp" taken off in [place] a year ago so big he was having trouble with his bowels. but since the endo has been doing ok. no bowel complaints. no specific episodes of biliary colic type sx. no blood no melena. he presents with a few days of abdominal pain upper and left. also has been having nausea without emesis. some heartburn and reflux. workup with gallstone, no evidence of wall thickening or acute nawaf. but he's still having pain nausea heartburn. "Abdominal Pain/GI-[facility] Patient Name: ESTEFANIA CLEMENTS Date of : 1955 Patient Status: Observation Attending Provider: ABEBE BEEBE Date: 10/17/24 20:01 Initialization Date: 10/17/24 20:01 - History of Present Illness Time Seen by Provider: 10/17/24 19:50 Historian: patient Exam Limitations: no limitations Patient Subjective Stated Complaint: Abdominal pain Triage Nursing Assessment: Patient brought into ED per EMS and transferred to bed with assist of 2. Patient A+O X3. Patient's skin pink, warm and dry. Patient complains of intermittent sharp abdominal pain for the past few days with nausea. Abdomen soft and round with BS X 4. Patient also complains of increased heart burn for the past few days. Physician History: 69-year-old male presents to our ED for evaluation of generalized abdominal pain heartburn and nausea that has been ongoing for approximately 3 days. Pain described as an ache. No radiation. Pain worse with palpation. Pain improved with rest. No vomiting no diarrhea no rash. No testicular pain or tenderness. Patient otherwise feels well. He voices no other complaints or concerns at this time. Portions of this note were created with voice recognition technology. There may be grammatical, spelling, punctuation or sound alike errors Timing/Duration: day(s) (3 days) Activities at Onset: none Quality: aching Abdominal Pain Onset Location: generalized abdomen Pain Radiation: no radiation Severity of Pain-Max: moderate Severity of Pain-Current: mild Modifying Factors: Improves With: other (Movement and palpation) Associated Symptoms: nausea, other (Heartburn and nausea) Previous symptoms: no prior history Allergies/Adverse Reactions: gabapentin Adverse Reaction (Verified 10/17/24 18:22) "got kind of loopy" Hx Tetanus, Diphtheria Vaccination/Date Given: No Hx Influenza Vaccination/Date Given: Yes Hx Pneumococcal Vaccination/Date Given: Yes Immunizations Up to Date: No Travel Risk - International Travel Have you traveled outside of the country in past 3 weeks: No - Emerging Infectious Disease Are you exhibiting symptoms associated with any current EIDs: No Symptoms: Headaches/Body Aches/, Shortness of Breath - Review of Systems Constitutional: No Symptoms, No Fever, No Chills Eyes: No Symptoms Ears, Nose, & Throat: No Symptoms Respiratory: No Symptoms, No Cough, No Dyspnea Cardiac: No Symptoms, No Chest Pain, No Edema, No Syncope Abdominal/Gastrointestinal: No Symptoms, No Abdominal Pain, No Nausea, No Vomiting, No Diarrhea Genitourinary Symptoms: No Symptoms, No Dysuria Musculoskeletal: No Symptoms, No Back Pain, No Neck Pain Skin: No Symptoms, No Rash Neurological: No Symptoms, No Dizziness, No Focal Weakness, No Sensory Changes Psychological: No Symptoms Endocrine: No Symptoms Hematologic/Lymphatic: No Symptoms Immunological/Allergic: No Symptoms All Other Systems: Reviewed and Negative - Past Medical History Pertinent Past Medical History: Yes Neurological History: No Pertinent History ENT History: No Pertinent History Cardiac History: Angina, Congestive Heart Failure, Coronary Artery Disease, High Cholesterol, Hypertension, Myocardial Infarction ([place]) Respiratory History: COPD Endocrine Medical History: Diabetes Type II Musculoskeletal History: Osteoarthritis GI Medical History: No Pertinent History History: No Pertinent History Psycho-Social History: Depression Male Reproductive Disorders: No Pertinent History Other Medical History: fractured ribs, anemia, gout - Past Surgical History Past Surgical History: Yes Neuro Surgical History: No Pertinent History Cardiac: CABG, Cardiac Catheterization, Cardiac Stent, Other Respiratory: Chest Surgery Gastrointestinal: No Pertinent History Genitourinary: No Pertinent History Musculoskeletal: Orthopedic Surgery Male Surgical History: No Pertinent History Other Surgical History: umbilical, triple bypass, L shoulder. polyp removal, right foot (two toes amputation) Significant Family History: no pertinent family hx - Social History Smoking Status: Former smoker How long have you smoked: 53 Exposure to second hand smoke: No Drug Use: none Patient Lives Alone: No - Social Determinants of Health Will the patient participate in the screening: Yes Do you worry about a steady place to live?: No Do you have any problems with any of the following?: No known problems In the past 12 months,have you had to go without utilities?: No Transportation Issues: No Has anyone in your support network made you feel unsafe?: Yes Have you or anyone in your house had to go without enough: Yes" "TELE-MED History & Physical Patient Name: ESTEFANIA CLEMENTS Date of : 1955 Patient Status: Observation Attending Provider: ABEBE BEEBE Date: 10/18/24 04:09 Initialization Date: 10/18/24 04:09 History of Present Illness - Chief Complaint Chief Complaint: abdominal pain Date: 10/18/24 History of Present Illness: 69-year-old man with history of HFrEF, CAD, DM2, COPD, CKD 3, and HTN, who presents with abdominal pain. He notes 1 to 2 days of burning and stabbing, intermittent, epigastric to periumbilical abdominal pain, initially relieved by Pepto-Bismol, and relieved by water and small amounts of food. Not affected by change in position. Associated with nausea but no vomiting or diarrhea. Denies fevers or sick contacts. He denies chest pain, orthopnea, PND, dyspnea, or edema. Pain was unable to be controlled in the ED, so patient was admitted. - Review of Systems All Other Systems: Reviewed and Negative" Medications & Allergies Home Medications: Home Medication List Amlodipine Besylate 5 mg [Norvasc 5 mg] 5 mg PO DAILY 30 Days #30 tablet 05/09/24 [Rx Confirmed 10/18/24] Aspirin EC 81 mg [Ecotrin 81 mg] 81 mg PO DAILY 30 Days #30 tablet 05/09/24 [Rx Confirmed 10/18/24] Metoprolol Succinate 50 mg [Toprol Xl 50 MG] 50 mg PO DAILY 30 Days #30 tablet 05/09/24 [Rx Confirmed 10/18/24] Simvastatin 10 mg [Zocor 10MG] 10 mg PO DAILY 30 Days #30 tablet 05/09/24 [Rx Confirmed 10/18/24] Topiramate 25 mg [Topamax 25 MG] 50 mg PO DAILY 30 Days #60 cap 05/09/24 [Rx Confirmed 10/18/24] Ezetimibe 10 mg [Zetia 10 MG] 10 mg PO DAILY 10/18/24 [History Confirmed 10/18/24] Clopidogrel Bisulfate [Clopidogrel] 75 mg PO DAILY 10/19/24 [History Confirmed 10/19/24] Isosorbide Mononitrate 30 mg PO DAILY 10/19/24 [History Confirmed 10/19/24] Metformin HCl 500 mg [Glucophage 500 MG] 500 mg PO BIDWM 10/19/24 [History Confirmed 10/19/24] PANTOPRAZOLE 40 mg Tablet [Protonix 40MG Tablet] 40 mg PO BID 10/19/24 [History Confirmed 10/19/24] Potassium Chloride 20 meq PO DAILY 10/19/24 [History Confirmed 10/19/24] Torsemide 20 mg [Demadex 20 mg] 20 mg PO BID 10/19/24 [History Confirmed 10/19/24] allopurinoL [Zyloprim] 200 mg PO DAILY 10/19/24 [History Confirmed 10/19/24] Allergies/Adverse Reactions: Allergies Allergy/AdvReac Type Severity Reaction Status Date / Time gabapentin AdvReac Verified 10/17/24 18:22 - Past Medical History Past Medical History: Yes Neurological History: No Pertinent History ENT History: No Pertinent History Cardiac History: Angina, Congestive Heart Failure, Coronary Artery Disease, High Cholesterol, Hypertension, Myocardial Infarction ([place]) Respiratory History: COPD, Pulmonary Embolism Endocrine Medical History: Diabetes Type II Musculoskelatal History: Osteoarthritis GI Medical History: No Pertinent History History: No Pertinent History Pyscho-Social History: Depression Male Reproductive Disorders: No Pertinent History Comment: fractured ribs, anemia, gout - Past Surgical History Past Surgical History: Yes Neuro Surgical History: No Pertinent History Cardiac History: CABG, Cardiac Catheterization, Cardiac Stent, Other Respiratory Surgery: Chest Surgery GI Surgical History: No Pertinent History Genitourinary Surgical Hx: No Pertinent History Musculskeletal Surgical Hx: Orthopedic Surgery Male Surgical History: No Pertinent History Other Surgical History: umbilical, triple bypass, L shoulder. polyp removal, right 4th/5th toe amputation Significant Family History: no pertinent family hx - Social History Smoking Status: Current every day smoker How long have you smoked: 53 Exposure to second hand smoke: No Alcohol: None Drug Use: none - Social Determinants of Health Will the patient participate in the screening: Yes Do you worry about a steady place to live?: No Do you have any problems with any of the following?: No known problems In the past 12 months,have you had to go without utilities?: No Have you or anyone in your house had to go without enough: No Transportation Issues: No Has anyone in your support network made you feel unsafe?: No Does the patient want assistance with any of the above?: No - Physical Exam Vital Signs: Vital Signs - 24 hr Temp Pulse Resp BP Pulse Ox 10/19/24 16:00 97.5 F 58 L 14 158/68 97 10/19/24 11:28 97.6 F 55 L 16 154/74 96 10/19/24 07:19 97.9 F 63 16 154/77 95 10/19/24 04:00 97.3 F 58 L 18 152/67 96 10/18/24 23:50 97.1 F 64 18 167/73 95 10/18/24 20:00 97.6 F 68 17 128/62 94 L Additional Findings: 10/19/24 16:40 nad no scleral icterus neck symmetric nonlabored resps rrr nd, soft, ttp epigastric, llq left mid. no r/g. no burkett. + edema Results - Labs Lab/Micro Results: Lab Results-Last 24 Hours 10/18/24 10/19/24 10/19/24 Range/Units 21:10 05:05 05:05 WBC 4.6 (4.23-9.07) x10^3/uL RBC 3.29 L (4.63-6.08) x10^6/uL Hgb 9.7 L (13.7-17.5) g/dL Hct 30.7 L (40.1-51.0) % MCV 93.3 H (79.0-92.2) fL MCH 29.5 (25.7-32.2) pg MCHC 31.6 L (32.3-36.5) g/dL RDW 14.5 H (11.6-14.4) % Plt Count 145 L (163-337) x10^3/uL MPV 12.0 (9.4-12.4) fL Gran % 72.6 H (34.0-67.9) % Immature Gran % (Auto) 0.2 (0.001-0.429) % Nucleat RBC Rel Count 0.0 (0.00-0.2) % Eos # (Auto) 0.08 (0.04-0.54) x10^3/uL Immature Gran # (Auto) 0.01 (0.001-0.031) x10^3u/L Absolute Lymphs (auto) 0.85 L (1.32-3.57) x10^3/uL Absolute Monos (auto) 0.33 (0.30-0.82) x10^3/uL Absolute Nucleated RBC 0.00 (0.00-0.012) x10^3u/L Lymphocytes % 18.4 L (21.8-53.1) % Monocytes % 7.1 (5.3-12.2) % Eosinophils % 1.7 (0.8-7.0) % Basophils % 0.0 L (0.2-1.2) % Absolute Granulocytes 3.36 (1.78-5.38) x10^3/uL Basophils # 0 L (0.01-0.08) x10^3/uL Sodium 140 (135-145) mmol/L Potassium 4.2 (3.5-5.1) mmol/L Chloride 113 H (98-107) mmol/L Carbon Dioxide 24 (22-30) mmol/L Anion Gap 7.9 (5-15) MEQ/L BUN 39 H (9-20) mg/dL Creatinine 1.97 H (0.66-1.25) mg/dL Estimated GFR 36.3 ML/MIN Glucose 129 H (74-106) mg/dL POC Glucometer 142 H (74 to 106) mg/dL Calcium 8.5 (8.4-10.2) mg/dL Total Bilirubin 0.30 (0.2-1.3) mg/dL AST 27 (17-59) U/L ALT 20 (0-50) U/L Alkaline Phosphatase 86 (38-126) U/L Serum Total Protein 5.7 L (6.3-8.2) g/dL Albumin 3.1 L (3.5-5.0) g/dL 10/19/24 10/19/24 Range/Units 07:09 11:43 WBC (4.23-9.07) x10^3/uL RBC (4.63-6.08) x10^6/uL Hgb (13.7-17.5) g/dL Hct (40.1-51.0) % MCV (79.0-92.2) fL MCH (25.7-32.2) pg MCHC (32.3-36.5) g/dL RDW (11.6-14.4) % Plt Count (163-337) x10^3/uL MPV (9.4-12.4) fL Gran % (34.0-67.9) % Immature Gran % (Auto) (0.001-0.429) % Nucleat RBC Rel Count (0.00-0.2) % Eos # (Auto) (0.04-0.54) x10^3/uL Immature Gran # (Auto) (0.001-0.031) x10^3u/L Absolute Lymphs (auto) (1.32-3.57) x10^3/uL Absolute Monos (auto) (0.30-0.82) x10^3/uL Absolute Nucleated RBC (0.00-0.012) x10^3u/L Lymphocytes % (21.8-53.1) % Monocytes % (5.3-12.2) % Eosinophils % (0.8-7.0) % Basophils % (0.2-1.2) % Absolute Granulocytes (1.78-5.38) x10^3/uL Basophils # (0.01-0.08) x10^3/uL Sodium (135-145) mmol/L Potassium (3.5-5.1) mmol/L Chloride (98-107) mmol/L Carbon Dioxide (22-30) mmol/L Anion Gap (5-15) MEQ/L BUN (9-20) mg/dL Creatinine (0.66-1.25) mg/dL Estimated GFR ML/MIN Glucose (74-106) mg/dL POC Glucometer 120 H 100 (74 to 106) mg/dL Calcium (8.4-10.2) mg/dL Total Bilirubin (0.2-1.3) mg/dL AST (17-59) U/L ALT (0-50) U/L Alkaline Phosphatase (38-126) U/L Serum Total Protein (6.3-8.2) g/dL Albumin (3.5-5.0) g/dL Accuchecks Date 10/19/24 Date 10/19/24 Time 07:29 - Radiology Impressions Radiology Exams & Impressions: Radiology Procedures Category Date Time Status ABDOMEN AND PELVIS W/0 CONTRAS [CT] Stat Exams 10/17/24 19:55 Completed GALLBLADDER [US] Routine Exams 10/18/24 09:49 Completed HIDA-GALL BLADDER [NUCMED] Routine Exams 10/20/24 07:00 Ordered Assessment/Plan (1) Abdominal pain Current Visit: Yes Status: Acute Assessment & Plan: 69yo male with abdominal pain, nausea, reflux, proteinuria, gallstone on imaging without obvious changes of acute nawaf, pain is atypical being epigastric and left sided. CT scan no abnormality on the left images are personally reviewed. has some perinephric haziness. very unclear clinical picture. -HIDA scan to assess for acute cholecystitis. felt to be less likely acute nawaf at this point. could have symptomatic cholelithiasis. -will defer the proteinuria to medicine. ? neprhotic syndrome. -if the hida scan is negative and he is still having pain we could consider egd +/- colonoscopy. he does have hx large polypectomy is overdue for cscope surveillance. Code(s): R10.9 - UNSPECIFIED ABDOMINAL PAIN
[2024-10-19 16:47] LABS: Appearance Clear (Clear); Bacteria None Seen /HPF (None Seen); Bilirubin Negative (Negative); Blood Negative (Negative); Epithelial Cells None Seen /HPF (None Seen); Glucose, Urine Negative (Negative); Hyaline Casts NONE SEEN /LPF (0-2); Ketones Negative (Negative); Leukocyte Esterase Negative (Negative); Nitrite Negative (Negative); Ph 7.5 (4.6-8.0); Protein,Urine Dip 300 (Negative); RBC 0-2 /HPF (0-5); Urobilinogen 0.2 mg/dL (0.2); WBC 0-2 /HPF (0-5)
[2024-10-19] MEDS: PLAVIX Tablet PO SCH (16:48)
[2024-10-19] MEDS: Klor Con PO SCH (16:51)
[2024-10-19] MEDS: ZYLOPRIM 100 MG PO SCH (16:51)
[2024-10-19] MEDS: DEMADEX 20 MG PO SCH (16:52)
[2024-10-19] MEDS: Imdur 30 MG PO SCH (16:52)
[2024-10-19 17:52] LABS: Creatinine, Urine Random 31.2 mg/dl
[2024-10-19 18:01] LABS: Protein Creatinine Ratio, Ran. 8.72 mg/mg (0.0-0.15)
[2024-10-19] MEDS: Protonix 40MG Tablet PO SCH (21:02)
[2024-10-20 05:20] LABS: Absolute Neutrophil Ct (ANC) 3.89 x10^3/uL (1.78-5.38); Basophil (Absolute #) 0 x10^3/uL (0.01-0.08); Eosinophil % 1.6 % (0.8-7.0); Eosinophil (Absolute #) 0.08 x10^3/uL (0.04-0.54); Hematocrit 28.9 % (40.1-51.0); IMMATURE GRAN # 0.01 x10^3u/L (0.001-0.031); IMMATURE GRAN % 0.2 % (0.001-0.429); Lymphocyte (Absolute #) 0.67 x10^3/uL (1.32-3.57); Lymphocytes % 13.5 % (21.8-53.1); Mean Cell Volume 93.5 fL (79.0-92.2); Mean Corpuscular Hemoglobin 29.1 pg (25.7-32.2); Mean Corpuscular Hgb Concent. 31.1 g/dL (32.3-36.5); Mean Platelet Volume 11.6 fL (9.4-12.4); Monocyte (Absolute #) 0.33 x10^3/uL (0.30-0.82); Monocytes % 6.6 % (5.3-12.2); Neutrophil % 78.1 % (34.0-67.9); Platelet Count 128 x10^3/uL (163-337); Red Blood Count 3.09 x10^6/uL (4.63-6.08); Red Cell Distribution Width 14.4 % (11.6-14.4)
--- NOTE | 2024-10-20 05:25 | PCM.NOTE ---
Date and Time: 10/20/24 0525 Subjective Assessment: 69-year-old man with history of HFrEF, CAD, DM2, COPD, CKD 3, and HTN, who presented 10/18/23 with abdominal pain. He notes 1 to 2 days of burning and stabbing, intermittent, epigastric to periumbilical abdominal pain, initially relieved by Pepto-Bismol, and relieved by water and small amounts of food. Not a ffected by change in position. Associated with nausea but no vomiting or diarrhea. CT with multiple gallstones. GB US showing cholelithiasis no acute cholecystitis. Surgery consulted. 10/19/24: Met with patient bedside. Endorses continued abdominal pain and n/v last night. GB and CT showing multiple gallstones. Surgery consulted and pending evaluation. Creat is elevated at 1.97 today- may be secondary to vomiting. Will start IVF. Baseline creat around 1.7. Objective Data Vital Signs: Vital Signs - 24 hr Temp Pulse Resp BP Pulse Ox 10/20/24 04:00 98 F 63 18 119/57 93 L 10/20/24 00:00 97.8 F 59 L 18 131/64 94 L 10/19/24 19:48 98.3 F 61 16 122/63 95 10/19/24 16:00 97.5 F 58 L 14 158/68 97 10/19/24 11:28 97.6 F 55 L 16 154/74 96 10/19/24 07:19 97.9 F 63 16 154/77 95 Pain Assessment - Last Documented Pain Intensity 0 Pain Scale Used 0-10 Pain Scale Intake and Output: Intake & Output 10/17/24 10/18/24 10/19/24 10/20/24 11:59 11:59 11:59 11:59 Intake Total 773 031 9290 Output Total 599 1909 3489 Balance 685 -7712 -6775 Weight 101 kg Lab Results: Lab Results-Last 24 Hours 10/19/24 10/19/24 10/19/24 Range/Units 05:05 07:09 11:43 Sodium 140 (135-145) mmol/L Potassium 4.2 (3.5-5.1) mmol/L Chloride 113 H (98-107) mmol/L Carbon Dioxide 24 (22-30) mmol/L Anion Gap 7.9 (5-15) MEQ/L BUN 39 H (9-20) mg/dL Creatinine 1.97 H (0.66-1.25) mg/dL Estimated GFR 36.3 ML/MIN Glucose 129 H (74-106) mg/dL POC Glucometer 120 H 100 (74 to 106) mg/dL Calcium 8.5 (8.4-10.2) mg/dL Total Bilirubin 0.30 (0.2-1.3) mg/dL AST 27 (17-59) U/L ALT 20 (0-50) U/L Alkaline Phosphatase 86 (38-126) U/L Serum Total Protein 5.7 L (6.3-8.2) g/dL Albumin 3.1 L (3.5-5.0) g/dL Urine Color (Yellow) Urine Appearance (Clear) Urine pH (4.6-8.0) Ur Specific [place] (1.005-1.030) Urine Protein (Negative) Urine Glucose (UA) (Negative) mg/dL Urine Ketones (Negative) Urine Blood (Negative) Urine Nitrite (Negative) Urine Bilirubin (Negative) Urine Urobilinogen (0.2) mg/dL Ur Leukocyte Esterase (Negative) U Hyaline Cast (Auto) (0-2) /LPF Urine Microscopic RBC (0-5) /HPF Urine Microscopic WBC (0-5) /HPF Ur Epithelial Cells (None Seen) /HPF Urine Bacteria (None Seen) /HPF Urine Culture Reflexed (NO) Ur Random Creatinine mg/dl U Random Total Protein (<12) mg/dl U [place] Prot/Creat Ratio (0.0-0.15) mg/mg 10/19/24 10/19/24 10/19/24 Range/Units 16:35 16:37 16:37 Sodium (135-145) mmol/L Potassium (3.5-5.1) mmol/L Chloride (98-107) mmol/L Carbon Dioxide (22-30) mmol/L Anion Gap (5-15) MEQ/L BUN (9-20) mg/dL Creatinine (0.66-1.25) mg/dL Estimated GFR ML/MIN Glucose (74-106) mg/dL POC Glucometer 70 L (74 to 106) mg/dL Calcium (8.4-10.2) mg/dL Total Bilirubin (0.2-1.3) mg/dL AST (17-59) U/L ALT (0-50) U/L Alkaline Phosphatase (38-126) U/L Serum Total Protein (6.3-8.2) g/dL Albumin (3.5-5.0) g/dL Urine Color Yellow (Yellow) Urine Appearance Clear (Clear) Urine pH 7.5 (4.6-8.0) Ur Specific [place] 1.010 (1.005-1.030) Urine Protein 300 A (Negative) Urine Glucose (UA) Negative (Negative) mg/dL Urine Ketones Negative (Negative) Urine Blood Negative (Negative) Urine Nitrite Negative (Negative) Urine Bilirubin Negative (Negative) Urine Urobilinogen 0.2 (0.2) mg/dL Ur Leukocyte Esterase Negative (Negative) U Hyaline Cast (Auto) NONE SEEN (0-2) /LPF Urine Microscopic RBC 0-2 (0-5) /HPF Urine Microscopic WBC 0-2 (0-5) /HPF Ur Epithelial Cells None Seen (None Seen) /HPF Urine Bacteria None Seen (None Seen) /HPF Urine Culture Reflexed NO (NO) Ur Random Creatinine 31.2 mg/dl U Random Total Protein 272.0 (<12) mg/dl U [place] Prot/Creat Ratio 8.72 H (0.0-0.15) mg/mg 10/19/24 Range/Units 20:46 Sodium (135-145) mmol/L Potassium (3.5-5.1) mmol/L Chloride (98-107) mmol/L Carbon Dioxide (22-30) mmol/L Anion Gap (5-15) MEQ/L BUN (9-20) mg/dL Creatinine (0.66-1.25) mg/dL Estimated GFR ML/MIN Glucose (74-106) mg/dL POC Glucometer 122 H (74 to 106) mg/dL Calcium (8.4-10.2) mg/dL Total Bilirubin (0.2-1.3) mg/dL AST (17-59) U/L ALT (0-50) U/L Alkaline Phosphatase (38-126) U/L Serum Total Protein (6.3-8.2) g/dL Albumin (3.5-5.0) g/dL Urine Color (Yellow) Urine Appearance (Clear) Urine pH (4.6-8.0) Ur Specific [place] (1.005-1.030) Urine Protein (Negative) Urine Glucose (UA) (Negative) mg/dL Urine Ketones (Negative) Urine Blood (Negative) Urine Nitrite (Negative) Urine Bilirubin (Negative) Urine Urobilinogen (0.2) mg/dL Ur Leukocyte Esterase (Negative) U Hyaline Cast (Auto) (0-2) /LPF Urine Microscopic RBC (0-5) /HPF Urine Microscopic WBC (0-5) /HPF Ur Epithelial Cells (None Seen) /HPF Urine Bacteria (None Seen) /HPF Urine Culture Reflexed (NO) Ur Random Creatinine mg/dl U Random Total Protein (<12) mg/dl U [place] Prot/Creat Ratio (0.0-0.15) mg/mg Radiology Exams: Radiology Procedures Category Date Time Status GALLBLADDER [US] Routine Exams 10/18/24 09:49 Completed HIDA-GALL BLADDER [NUCMED] Routine Exams 10/20/24 07:00 Ordered Multi-Disciplinary Progress Notes: Multi-Disciplinary Progress Notes 10/19/24 16:05 Case Management Note by Valerie Allen PATIENT CONTINUES TO DENY ANY NEW NEEDS AT TIME OF DC. BAG OF MEDS IN CLOSET- PATIENT REPORTS SEVERAL NEED REFILLED. AFTER REVIEWING BAG- CONCERNED CURRENT MED LIST IN COMPUTER DOES NOT MATCH WHAT HE IS ACTUALLY TAKING. CURRENT MED LIST WAS REQUESTED FROM [facility]. THIS MED LIST WAS COMPARED WITH PRIMARY RN- SHE S/W PATIENT AND MADE ADJUSTMENTS TO MED LIST. WILL CALL [facility] 10/20 AND REQUEST REFILLS OF MEDS THAT ARE NEEDED Initialized on 10/19/24 16:05 - END OF NOTE Assessment/Plan (1) Abdominal pain Current Visit: Yes Status: Acute Assessment & Plan: -CT abdomen reviewed with multiple gallstone -GB US reviewed with cholelithiasis -surgery consulted and pending -protonix -pain control -WBC reviewed and WNL at 4.6- trend Code(s): R10.9 - UNSPECIFIED ABDOMINAL PAIN (2) Cholelithiasis Current Visit: Yes Status: Acute Assessment & Plan: -see plan for abdominal pain (3) CHF (congestive heart failure) Current Visit: Yes Status: Acute Assessment & Plan: Follow volume status Continue Toprol-XL 50 Code(s): I50.9 - HEART FAILURE, UNSPECIFIED (4) Diabetes mellitus Current Visit: Yes Status: Acute Assessment & Plan: -ADA diet -SSI -ACHS accuchecks Code(s): E11.9 - TYPE 2 DIABETES MELLITUS WITHOUT COMPLICATIONS (5) HTN (hypertension) Current Visit: Yes Status: Acute Assessment & Plan: -continue norvasc Code(s): I10 - ESSENTIAL (PRIMARY) HYPERTENSION (6) CKD (chronic kidney disease) Current Visit: No Status: Acute Assessment & Plan: -baseline creat at 1.7 - reviewed creat and at 1.97 - will start IVF at 100ml/hr -may be secondary to hypovolemia -monitor renal/lytes -avoid sona/arb - nephrotoxic agents Code(s): R10.9 - UNSPECIFIED ABDOMINAL PAIN (2) Cholelithiasis Current Visit: Yes Status: Acute (3) CHF (congestive heart failure) Current Visit: Yes Status: Acute Code(s): I50.9 - HEART FAILURE, UNSPECIFIED (4) Diabetes mellitus Current Visit: Yes Status: Acute Code(s): E11.9 - TYPE 2 DIABETES MELLITUS WITHOUT COMPLICATIONS (5) HTN (hypertension) Current Visit: Yes Status: Acute Code(s): I10 - ESSENTIAL (PRIMARY) HYPERTENSION (6) CKD (chronic kidney disease) Current Visit: No Status: Acute Code(s): N18.9 - CHRONIC KIDNEY DISEASE, UNSPECIFIED
[2024-10-20 05:45] LABS: ANION GAP 8.1 MEQ/L (5-15); BILIRUBIN,TOTAL 0.2 mg/dL (0.2-1.3); Calcium 8.7 mg/dL (8.4-10.2); Creatinine 1 1.89 mg/dL (0.66-1.25); EST GLOMERULAR FILTRATION RATE 38.2 ML/MIN; Potassium 4.4 mmol/L (3.5-5.1); Total Protein 5.6 g/dL (6.3-8.2)
[2024-10-20 07:03] VITALS: RESP 16; TEMP 98
--- NOTE | 2024-10-20 11:54 | XRAY ---
Indication: Abdomen pain. Cholelithiasis on recent gallbladder sonogram. Comparison: June 03, 2018 Patient received 5.7 mCi technetium 99 Choletec. Immediate anterior planar imaging was performed for 60 minutes. Normal hepatic activity on first image. Normal biliary and biliary to bowel activity within 10 minutes. Normal gallbladder activity within 40 minutes. Patient then received 2.0 g of IV CCK slowly. Ejection fraction calculated 12%, low. This was previously 14%. Impression: 1. HIDA scan portion the exam remains normal. 2. Continued low ejection fraction. Again rule out chronic cholecystitis.
[2024-10-20 12:28] VITALS: O2SAT 97
--- NOTE | 2024-10-20 14:28 | PCM.DS ---
Discharge Summary Date of Admission: 10/18/24 01:22 Date of Discharge: 10/20/24 Admitting Physician: ABEBE BEEBE MD Consults: Consults on Case 10/17/24 18:39 ACO SDME Referral ONCE 10/18/24 16:52 Consult Surgery ROUTINE Primary Care Provider: NICCI CLAROS Allergies Allergies gabapentin Adverse Reaction (Verified 10/17/24 18:22) "got kind of loopy" Hospital Summary - Hospital Course Hospital Course: 69-year-old man with history of HFrEF, CAD, DM2, COPD, CKD 3, and HTN, who presented 10/18/23 with abdominal pain. He notes 1 to 2 days of burning and stabbing, intermittent, epigastric to periumbilical abdominal pain, initially relieved by Pepto-Bismol, and relieved by water and small amounts of food. Not affected by change in position. Associated with nausea but no vomiting or diar stephy. CT with multiple gallstones. GB US showing cholelithiasis no acute cholecystitis. Surgery consulted. HIDA scan with normal with low EF at 12%. No plans for intervention surgically per surgery team. Recommends protonix BID and follow up as OP. Vomiting and diarrhea resolved. Will discharge patient on protonix as suggested by surgery team. Advised patient to follow up with PCP for recheck of kidney function next week. Patient agreeable to plan and ready for discharge. Will set up Nephrology for CKD. Discharge Note New Diagnosis:Cholelithiasis New Medications: carafate/protonix Follow Up: PCP/Nephrology Outpatient testing to order: CMP wednesday to check creat Latest Assessment & Plan (1) Abdominal pain Current Visit: Yes Status: Acute Assessment & Plan: -CT abdomen reviewed with multiple gallstone -GB US reviewed with cholelithiasis -surgery consulted and pending -protonix -pain control -WBC reviewed and WNL at 4.6- trend Code(s): R10.9 - UNSPECIFIED ABDOMINAL PAIN (2) Cholelithiasis Current Visit: Yes Status: Acute Assessment & Plan: -see plan for abdominal pain (3) CHF (congestive heart failure) Current Visit: Yes Status: Acute Assessment & Plan: Follow volume status Continue Toprol-XL 50 Code(s): I50.9 - HEART FAILURE, UNSPECIFIED (4) Diabetes mellitus Current Visit: Yes Status: Acute Assessment & Plan: -ADA diet -SSI -ACHS accuchecks Code(s): E11.9 - TYPE 2 DIABETES MELLITUS WITHOUT COMPLICATIONS (5) HTN (hypertension) Current Visit: Yes Status: Acute Assessment & Plan: -continue norvasc Code(s): I10 - ESSENTIAL (PRIMARY) HYPERTENSION (6) CKD (chronic kidney disease) Current Visit: No Status: Acute Assessment & Plan: -baseline creat at 1.7 - reviewed creat and at 1.97 - will start IVF at 100ml/hr -may be secondary to hypovolemia -monitor renal/lytes -avoid sona/arb - nephrotoxic agents I spent 35 minutes [id number] with the patient on the day of discharge performing discharge exam, discussing hospital stay and discharge instructions with patient and caregivers, preparation of discharge records, prescriptions & referral forms and addressing any questions/concerns the patient had as documented above. - Vitals & Intake/Output Vital Signs: Vital Signs Temperature 98.0 F 10/20/24 12:00 Pulse Rate 80 10/20/24 12:00 Respiratory Rate 16 10/20/24 12:00 Blood Pressure 178/82 10/20/24 12:00 O2 Sat by Pulse Oximetry 97 10/20/24 12:00 Intake & Output: Intake & Output 10/18/24 10/19/24 10/20/24 10/21/24 11:59 11:59 11:59 11:59 Intake Total 811 771 9341 Output Total 300 2515 4165 400 Balance 520 -1535 -2063 -400 Weight 101 kg - Lab Result Diagrams: 10/20/24 05:13 10/20/24 05:13 Lab Results-Last 24 Hrs: Lab Results-Last 24 Hours 10/19/24 10/19/24 10/19/24 Range/Units 16:35 16:37 16:37 WBC (4.23-9.07) x10^3/uL RBC (4.63-6.08) x10^6/uL Hgb (13.7-17.5) g/dL Hct (40.1-51.0) % MCV (79.0-92.2) fL MCH (25.7-32.2) pg MCHC (32.3-36.5) g/dL RDW (11.6-14.4) % Plt Count (163-337) x10^3/uL MPV (9.4-12.4) fL Gran % (34.0-67.9) % Immature Gran % (Auto) (0.001-0.429) % Nucleat RBC Rel Count (0.00-0.2) % Eos # (Auto) (0.04-0.54) x10^3/uL Immature Gran # (Auto) (0.001-0.031) x10^3u/L Absolute Lymphs (auto) (1.32-3.57) x10^3/uL Absolute Monos (auto) (0.30-0.82) x10^3/uL Absolute Nucleated RBC (0.00-0.012) x10^3u/L Lymphocytes % (21.8-53.1) % Monocytes % (5.3-12.2) % Eosinophils % (0.8-7.0) % Basophils % (0.2-1.2) % Absolute Granulocytes (1.78-5.38) x10^3/uL Basophils # (0.01-0.08) x10^3/uL Sodium (135-145) mmol/L Potassium (3.5-5.1) mmol/L Chloride (98-107) mmol/L Carbon Dioxide (22-30) mmol/L Anion Gap (5-15) MEQ/L BUN (9-20) mg/dL Creatinine (0.66-1.25) mg/dL Estimated GFR ML/MIN Glucose (74-106) mg/dL POC Glucometer 70 L (74 to 106) mg/dL Calcium (8.4-10.2) mg/dL Total Bilirubin (0.2-1.3) mg/dL AST (17-59) U/L ALT (0-50) U/L Alkaline Phosphatase (38-126) U/L Serum Total Protein (6.3-8.2) g/dL Albumin (3.5-5.0) g/dL Urine Color Yellow (Yellow) Urine Appearance Clear (Clear) Urine pH 7.5 (4.6-8.0) Ur Specific [place] 1.010 (1.005-1.030) Urine Protein 300 A (Negative) Urine Glucose (UA) Negative (Negative) mg/dL Urine Ketones Negative (Negative) Urine Blood Negative (Negative) Urine Nitrite Negative (Negative) Urine Bilirubin Negative (Negative) Urine Urobilinogen 0.2 (0.2) mg/dL Ur Leukocyte Esterase Negative (Negative) U Hyaline Cast (Auto) NONE SEEN (0-2) /LPF Urine Microscopic RBC 0-2 (0-5) /HPF Urine Microscopic WBC 0-2 (0-5) /HPF Ur Epithelial Cells None Seen (None Seen) /HPF Urine Bacteria None Seen (None Seen) /HPF Urine Culture Reflexed NO (NO) Ur Random Creatinine 31.2 mg/dl U Random Total Protein 272.0 (<12) mg/dl U [place] Prot/Creat Ratio 8.72 H (0.0-0.15) mg/mg 10/19/24 10/20/24 10/20/24 Range/Units 20:46 05:13 05:13 WBC 5.0 (4.23-9.07) x10^3/uL RBC 3.09 L (4.63-6.08) x10^6/uL Hgb 9.0 L (13.7-17.5) g/dL Hct 28.9 L (40.1-51.0) % MCV 93.5 H (79.0-92.2) fL MCH 29.1 (25.7-32.2) pg MCHC 31.1 L (32.3-36.5) g/dL RDW 14.4 (11.6-14.4) % Plt Count 128 L (163-337) x10^3/uL MPV 11.6 (9.4-12.4) fL Gran % 78.1 H (34.0-67.9) % Immature Gran % (Auto) 0.2 (0.001-0.429) % Nucleat RBC Rel Count 0.0 (0.00-0.2) % Eos # (Auto) 0.08 (0.04-0.54) x10^3/uL Immature Gran # (Auto) 0.01 (0.001-0.031) x10^3u/L Absolute Lymphs (auto) 0.67 L (1.32-3.57) x10^3/uL Absolute Monos (auto) 0.33 (0.30-0.82) x10^3/uL Absolute Nucleated RBC 0.00 (0.00-0.012) x10^3u/L Lymphocytes % 13.5 L (21.8-53.1) % Monocytes % 6.6 (5.3-12.2) % Eosinophils % 1.6 (0.8-7.0) % Basophils % 0.0 L (0.2-1.2) % Absolute Granulocytes 3.89 (1.78-5.38) x10^3/uL Basophils # 0 L (0.01-0.08) x10^3/uL Sodium 140 (135-145) mmol/L Potassium 4.4 (3.5-5.1) mmol/L Chloride 113 H (98-107) mmol/L Carbon Dioxide 23 (22-30) mmol/L Anion Gap 8.1 (5-15) MEQ/L BUN 39 H (9-20) mg/dL Creatinine 1.89 H (0.66-1.25) mg/dL Estimated GFR 38.2 ML/MIN Glucose 111 H (74-106) mg/dL POC Glucometer 122 H (74 to 106) mg/dL Calcium 8.7 (8.4-10.2) mg/dL Total Bilirubin 0.20 (0.2-1.3) mg/dL AST 23 (17-59) U/L ALT 19 (0-50) U/L Alkaline Phosphatase 87 (38-126) U/L Serum Total Protein 5.6 L (6.3-8.2) g/dL Albumin 3.0 L (3.5-5.0) g/dL Urine Color (Yellow) Urine Appearance (Clear) Urine pH (4.6-8.0) Ur Specific [place] (1.005-1.030) Urine Protein (Negative) Urine Glucose (UA) (Negative) mg/dL Urine Ketones (Negative) Urine Blood (Negative) Urine Nitrite (Negative) Urine Bilirubin (Negative) Urine Urobilinogen (0.2) mg/dL Ur Leukocyte Esterase (Negative) U Hyaline Cast (Auto) (0-2) /LPF Urine Microscopic RBC (0-5) /HPF Urine Microscopic WBC (0-5) /HPF Ur Epithelial Cells (None Seen) /HPF Urine Bacteria (None Seen) /HPF Urine Culture Reflexed (NO) Ur Random Creatinine mg/dl U Random Total Protein (<12) mg/dl U [place] Prot/Creat Ratio (0.0-0.15) mg/mg 10/20/24 10/20/24 Range/Units 07:22 11:39 WBC (4.23-9.07) x10^3/uL RBC (4.63-6.08) x10^6/uL Hgb (13.7-17.5) g/dL Hct (40.1-51.0) % MCV (79.0-92.2) fL MCH (25.7-32.2) pg MCHC (32.3-36.5) g/dL RDW (11.6-14.4) % Plt Count (163-337) x10^3/uL MPV (9.4-12.4) fL Gran % (34.0-67.9) % Immature Gran % (Auto) (0.001-0.429) % Nucleat RBC Rel Count (0.00-0.2) % Eos # (Auto) (0.04-0.54) x10^3/uL Immature Gran # (Auto) (0.001-0.031) x10^3u/L Absolute Lymphs (auto) (1.32-3.57) x10^3/uL Absolute Monos (auto) (0.30-0.82) x10^3/uL Absolute Nucleated RBC (0.00-0.012) x10^3u/L Lymphocytes % (21.8-53.1) % Monocytes % (5.3-12.2) % Eosinophils % (0.8-7.0) % Basophils % (0.2-1.2) % Absolute Granulocytes (1.78-5.38) x10^3/uL Basophils # (0.01-0.08) x10^3/uL Sodium (135-145) mmol/L Potassium (3.5-5.1) mmol/L Chloride (98-107) mmol/L Carbon Dioxide (22-30) mmol/L Anion Gap (5-15) MEQ/L BUN (9-20) mg/dL Creatinine (0.66-1.25) mg/dL Estimated GFR ML/MIN Glucose (74-106) mg/dL POC Glucometer 111 H 98 (74 to 106) mg/dL Calcium (8.4-10.2) mg/dL Total Bilirubin (0.2-1.3) mg/dL AST (17-59) U/L ALT (0-50) U/L Alkaline Phosphatase (38-126) U/L Serum Total Protein (6.3-8.2) g/dL Albumin (3.5-5.0) g/dL Urine Color (Yellow) Urine Appearance (Clear) Urine pH (4.6-8.0) Ur Specific [place] (1.005-1.030) Urine Protein (Negative) Urine Glucose (UA) (Negative) mg/dL Urine Ketones (Negative) Urine Blood (Negative) Urine Nitrite (Negative) Urine Bilirubin (Negative) Urine Urobilinogen (0.2) mg/dL Ur Leukocyte Esterase (Negative) U Hyaline Cast (Auto) (0-2) /LPF Urine Microscopic RBC (0-5) /HPF Urine Microscopic WBC (0-5) /HPF Ur Epithelial Cells (None Seen) /HPF Urine Bacteria (None Seen) /HPF Urine Culture Reflexed (NO) Ur Random Creatinine mg/dl U Random Total Protein (<12) mg/dl U [place] Prot/Creat Ratio (0.0-0.15) mg/mg Micro Results-Entire Visit: Accuchecks Date 10/20/24 Date 10/20/24 Date 10/19/24 Time 12:27 Time 07:31 Time 16:42 - Radiology Exams Ordered Rad Exams-Entire Visit: Radiology Procedures Category Date Time Status HEPATOBILIARY W/CCK [NUCMED] Routine Exams 10/20/24 07:00 Completed Discharge Exam General Appearance: no apparent distress Neurologic Exam: alert, oriented x 3, cooperative Eye Exam: PERRL Ears, Nose, Throat Exam: normal ENT inspection Neck Exam: normal inspection Respiratory Exam: normal breath sounds, lungs clear Cardiovascular Exam: regular rate/rhythm, normal heart sounds Gastrointestinal/Abdomen Exam: soft, normal bowel sounds Male Genitalia Exam: deferred Rectal Exam: deferred Back Exam: normal inspection Extremity Exam: normal inspection Skin Exam: normal color Final Diagnosis/Problem List - Final Discharge Diagnosis/Problem (1) Cholelithiasis Current Visit: Yes Status: Chronic (2) Abdominal pain Current Visit: Yes Status: Resolved Code(s): R10.9 - UNSPECIFIED ABDOMINAL PAIN (3) CHF (congestive heart failure) Current Visit: Yes Status: Chronic Code(s): I50.9 - HEART FAILURE, UNSPECIFIED (4) Diabetes mellitus Current Visit: Yes Status: Chronic Code(s): E11.9 - TYPE 2 DIABETES MELLITUS WITHOUT COMPLICATIONS (5) HTN (hypertension) Current Visit: Yes Status: Chronic Code(s): I10 - ESSENTIAL (PRIMARY) HYPERTENSION (6) CKD (chronic kidney disease) Current Visit: No Status: Chronic Code(s): N18.9 - CHRONIC KIDNEY DISEASE, UNSPECIFIED - Discharge Discharge Date: 10/20/24 Disposition: Home, Self-Care Condition: Stable Prescriptions: New Sucralfate 1 gm [Carafate 1 GM] 1 g PO ACHS 14 Days #56 tablet Continue Amlodipine Besylate 5 mg [Norvasc 5 mg] 5 mg PO DAILY 30 Days #30 tablet Aspirin EC 81 mg [Ecotrin 81 mg] 81 mg PO DAILY 30 Days #30 tablet Topiramate 25 mg [Topamax 25 MG] 50 mg PO DAILY 30 Days #60 cap Simvastatin 10 mg [Zocor 10MG] 10 mg PO DAILY 30 Days #30 tablet Metoprolol Succinate 50 mg [Toprol Xl 50 MG] 50 mg PO DAILY 30 Days #30 tablet Ezetimibe 10 mg [Zetia 10 MG] 10 mg PO DAILY Potassium Chloride 20 meq PO DAILY PANTOPRAZOLE 40 mg Tablet [Protonix 40MG Tablet] 40 mg PO BID Metformin HCl 500 mg [Glucophage 500 MG] 500 mg PO BIDWM Isosorbide Mononitrate 30 mg PO DAILY Clopidogrel Bisulfate [Clopidogrel] 75 mg PO DAILY allopurinoL [Zyloprim] 200 mg PO DAILY Discontinued Torsemide 20 mg [Demadex 20 mg] 20 mg PO BID Additional Instructions: IF YOU NEED ANY ASSISTANCE WITH YOUR MEDS, EITHER PAYING OR GETTING TO THE PHARMACY- CALL [facility] AT [phone] ext [phone] Follow up with: NICCI CLAROS MD [Primary Care Provider] - 10/26/24 2:15 pm NATALIE HUANG MD [ACTIVE STAFF] - 01/23/25 9:40 am (at [facility])
[2024-10-20] MEDS: BENADRYL 50 MG/ML IV ONE (14:48)
[2024-10-20 16:38] VITALS: BP 135/64; PULSE 73
== END 2024-10-20 18:40 | disposition home or self-care (01) ==
LOC: ED 18:21 → MED SURG 10-18 01:22
PROVIDERS: ADMIT Internal Medicine; ATTEND Internal Medicine
DX: K80.20 Calculus of gallbladder without cholecystitis without obstruction (principal); Z59.19 Other inadequate housing; R10.9 Unspecified abdominal pain; E11.22 Type 2 diabetes mellitus with diabetic chronic kidney disease; I13.0 Hypertensive heart and chronic kidney disease with heart failure and stage 1 through stage 4 chronic kidney disease, or unspecified chronic kidney disease; N18.9 Chronic kidney disease, unspecified; I50.9 Heart failure, unspecified; J44.9 Chronic obstructive pulmonary disease, unspecified; I25.10 Atherosclerotic heart disease of native coronary artery without angina pectoris; E78.5 Hyperlipidemia, unspecified; Z79.899 Other long term (current) drug therapy; Z95.0 Presence of cardiac pacemaker
CPT/HCPCS: 36415; 74176; 76705; 78227; 80053; 81001; 82570; 82947; 83605; 83690; 84156; 84484; 85025; 85027; 96360; 96361; 96374; 96375; 99285; A9537; Q3014; 93268; J1200; J1644; J2270; J2405; J2805; A9270-GY; G0378

== ENCOUNTER 2024-12-08 13:58 | Emergency (ER) | payer MEDICARE, OTHER ==
[2024-12-08 14:05] VITALS: RESP 18; TEMP 97
--- NOTE | 2024-12-08 14:08 | ERPHSYRPT ---
- History of Present Illness Time Seen by Provider: 12/08/24 14:08 Source: patient, family Exam Limitations: no limitations Patient Subjective Stated Complaint: . Triage Nursing Assessment: . Physician History: This is a 69-year-old white male patient who was brought to the emergency department by the paramedics after he tripped and fell while working on his lawn more at home. He was home alone and did not have a ride/transportation to the emergency department. Patient is on Plavix. He has a history of diabetes and gastroesophageal reflux disease. He has no complaints of pain or injury to any other area of the body Timing/Duration: today Method of Injury: bending, tripped Quality: sharp Back Pain Location: lumbar spine Severity of Pain-Max: moderate Severity of Pain-Current: moderate Modifying Factors: Improves With: movement Associated Symptoms: problems urinating, lower back pain, No urinary incontinence, No loss of bowel control, No numbness in legs/feet, No tingling in legs/feet Previous symptoms: no prior history, no recent treatment Allergies/Adverse Reactions: gabapentin Adverse Reaction (Verified 12/08/24 14:01) "got kind of loopy" Home Medications: Ezetimibe 10 mg [Zetia 10 MG] 10 mg PO DAILY 10/18/24 [History] Clopidogrel Bisulfate [Clopidogrel] 75 mg PO DAILY 10/19/24 [History] Isosorbide Mononitrate 30 mg PO DAILY 10/19/24 [History] Metformin HCl 500 mg [Glucophage 500 MG] 500 mg PO BIDWM 10/19/24 [History] PANTOPRAZOLE 40 mg Tablet [Protonix 40MG Tablet] 40 mg PO BID 10/19/24 [ History] Potassium Chloride 20 meq PO DAILY 10/19/24 [History] allopurinoL [Zyloprim] 200 mg PO DAILY 10/19/24 [History] Hx Tetanus, Diphtheria Vaccination/Date Given: No Hx Influenza Vaccination/Date Given: Yes Hx Pneumococcal Vaccination/Date Given: Yes Travel Risk - International Travel Have you traveled outside of the country in past 3 weeks: No - Emerging Infectious Disease Are you exhibiting symptoms associated with any current EIDs: No Symptoms: Abdominal Pain - Review of Systems Constitutional: No Symptoms Eyes: No Symptoms Ears, Nose, & Throat: No Symptoms Respiratory: No Symptoms Cardiac: No Symptoms Abdominal/Gastrointestinal: No Symptoms Genitourinary Symptoms: No Symptoms Musculoskeletal: Back Pain, Fall (Lower), Injury Skin: No Symptoms Neurological: No Symptoms Psychological: No Symptoms Endocrine: No Symptoms Hematologic/Lymphatic: No Symptoms Immunological/Allergic: No Symptoms All Other Systems: Reviewed and Negative - Past Medical History Pertinent Past Medical History: Yes Neurological History: No Pertinent History ENT History: No Pertinent History Cardiac History: Angina, Congestive Heart Failure, Coronary Artery Disease, High Cholesterol, Hypertension, Myocardial Infarction ([place]) Respiratory History: COPD, Pulmonary Embolism Endocrine Medical History: Diabetes Type II Musculoskeletal History: Osteoarthritis GI Medical History: No Pertinent History History: No Pertinent History Psycho-Social History: Depression Male Reproductive Disorders: No Pertinent History Other Medical History: fractured ribs, anemia, gout - Past Surgical History Past Surgical History: Yes Neuro Surgical History: No Pertinent History Cardiac: CABG, Cardiac Catheterization, Cardiac Stent, Other Respiratory: Chest Surgery Gastrointestinal: No Pertinent History Genitourinary: No Pertinent History Musculoskeletal: Orthopedic Surgery Male Surgical History: No Pertinent History Other Surgical History: umbilical, triple bypass, L shoulder. polyp removal, right 4th/5th toe amputation Significant Family History: no pertinent family hx - Social History Smoking Status: Current every day smoker - Social Determinants of Health Will the patient participate in the screening: Yes Do you worry about a steady place to live?: No In the past 12 months,have you had to go without utilities?: No Transportation Issues: No Has anyone in your support network made you feel unsafe?: No Have you or anyone in your house had to go w/o enough food: No - Nursing Vital Signs Nursing Vital Signs: Initial Vital Signs Temperature 97.0 F 12/08/24 14:04 Pulse Rate 74 12/08/24 14:04 Respiratory Rate 18 12/08/24 14:04 Blood Pressure 113/76 12/08/24 14:04 O2 Sat by Pulse Oximetry 98 12/08/24 14:04 Pain Scale Pain Intensity [Lower Back] 10 Pain Intensity 10 - Physical Exam General Appearance: mild distress, alert, anxiety Eye Exam: PERRL/EOMI, eyes nml inspection Ears, Nose, Throat Exam: normal ENT inspection, moist mucous membranes Neck Exam: normal inspection, non-tender, supple, full range of motion Respiratory Exam: normal breath sounds, lungs clear, airway intact, No chest tenderness, No respiratory distress Cardiovascular Exam: regular rate/rhythm, normal heart sounds, normal peripheral pulses Gastrointestinal Exam: soft, normal bowel sounds, No tenderness Rectal Exam: not done Back Exam: normal inspection, decreased range of motion, muscle spasm, No CVA tenderness, No vertebral tenderness, No point tenderness Extremity Exam: normal inspection, normal range of motion, pelvis stable Neurologic Exam: alert, oriented x 3, cooperative, line palletizer II-XII nml as tested, sensation nml Skin Exam: normal color, warm, dry Lymphatic Exam: No adenopathy SpO2 Interpretation: normal SpO2: 98 O2 Delivery: Room Air - Course Nursing assessment & vital signs reviewed: Yes Ordered Tests: Active Orders 24 hr Category Date Time Status LUMBAR COMPLETE (MIN 4 VIEWS) Stat Exams 12/08/24 14:17 Completed Medication Summary Discontinued Medications Generic Name Dose Route Start Last Admin Trade Name Freq PRN Reason Stop Dose Admin Methylprednisolone Sodium 0 mg 12/08/24 15:47 12/08/24 16:04 Succinate 125 mg/ Sterile IM 12/08/24 15:48 125 mg Water 2 ml STAT ONE Administration Hydromorphone HCl 1 mg 12/08/24 16:54 Hydromorphone 1 Mg/1ml Inj IM 12/08/24 16:55 STAT ONE Methylprednisolone Sodium Succinate Confirm 12/08/24 15:56 Methylprednis Sod Succ 125 Mg/2 Ml Vial Administered 12/08/24 15:57 Dose 125 mg .ROUTE .STK-MED ONE Orphenadrine Citrate 60 mg 12/08/24 15:48 12/08/24 16:01 Orphenadrine Citrate 60 Mg/2 Ml Vial IM 12/08/24 15:49 60 mg STAT ONE Administration Orphenadrine Citrate Confirm 12/08/24 15:56 Orphenadrine Citrate 60 Mg/2 Ml Vial Administered 12/08/24 15:57 Dose 60 mg .ROUTE .STK-MED ONE Sterile Water Confirm 12/08/24 15:56 Water For Injection,Sterile 10 Ml Vial Administered 12/08/24 15:57 Dose 10 ml IJ .STK-MED ONE - Progress Progress: improved, pain not gone completely Progress Note: 12/08/24 16:27 My medical decision making of the assignment of low complexity of this patient's medical issue today is based on review of the patient's past medical history, review the patient's medication list, reviewed patient drug allergy list, history present illness and physical findings on examination. The workup in this patient includes lumbar spine x-rays. Differential diagnosis includes but is not limited to lower back strain, lumbar spine fracture/subluxation 12/08/24 16:55 The lumbar spine x-rays were interpreted by the radiologist and I reviewed the impression. The interpretation states lumbar spondylosis with facet arthropathy. No evidence of lumbar fracture or subluxation. Counseled pt/family regarding: diagnosis, need for follow-up, rad results Medical Desision Making - Independent Historian Additional History obtained from: Promotions Representative/EMT - Diagnostic Testing Diagnostic test were ordered, analyzed, and reviewed by me: Yes Radiological Interpretation: Reviewed by me, Teleradiologist Report - Risk of complications The pt has a mod risk of morbidity or mortality based on: Need for prescription drug management - Departure Departure Disposition: Home Clinical Impression: Fall with no significant injury, Back pain Condition: Stable Critical Care Time: No Referrals: NICCI CLAROS MD [Primary Care Provider] - Follow up/PCP as directed Additional Instructions: Ice pack to tender area 3 times a day for the next 3 days. After that you may alternate ice and heat to the tender area. Take your medications as prescribed. Call your primary prescribing provider on 12/11/2024 to make an appointment to be seen in the next 5 to 7 days. Monitor your blood sugar level closely while taking the steroids Prescriptions: Oxycodone HCl/Acetaminophen [Percocet 5-325 mg Tablet] 1 each PO Q8H PRN PRN #6 tablet MDD 3 PRN Reason: Moderate To Severe Pain Prednisone 10 mg [Deltasone 10 mg] 10 mg PO TID #12 tablet
[2024-12-08] MEDS ORDERED: solu-MEDROL ONE (15:56)
[2024-12-08] MEDS ORDERED: Norflex 60 MG/2 ML ONE (15:56)
[2024-12-08] MEDS ORDERED: Sterile H2O 10 ml IJ ONE (15:56)
[2024-12-08] MEDS: Norflex 60 MG/2 ML IM ONE (16:01)
[2024-12-08] MEDS: solu-MEDROL 125 MG, Sterile H2O 10 ml 2 ML IM ONE (16:04)
[2024-12-08 16:30] VITALS: O2SAT 98
--- NOTE | 2024-12-08 16:31 | XRAY ---
CLINICAL HISTORY: Fall injury COMPARISON: None. TECHNIQUE: X-ray images of the lumbar spine were obtained in AP, lateral, bilateral oblique and spot views. FINDINGS: Bone: Normal bone alignment. Normal bone density with no abnormal osseous focal lesions. Normal clear Sacroiliac joints. Intervertebral disc spaces: Narrowing, subchondral sclerosis, air inside disc space of vacuum phenomena, and marginal osteophytes. Facet Joints: Narrowing, subchondral sclerosis, and marginal osteophytes. vertebral bodies: Normal height with no focal lesions. Soft tissue: Vascular calcifications. IMPRESSION: Lumbar spondylolysis with facet arthropathy. Electronically Signed by: Lon Kamara MD. (12/08/2024 16:26:00 EST)
[2024-12-08 17:07] VITALS: PULSE 60
[2024-12-08] MEDS ORDERED: Hydromorphone 1 mg/ml Injection ONE (17:08)
[2024-12-08] MEDS: Hydromorphone 1 mg/ml Injection IM ONE (17:28)
[2024-12-08 18:07] VITALS: BP 128/70
== END 2024-12-08 18:07 | disposition home or self-care (01) ==
LOC: ED 13:58
DX: M54.50 Low back pain, unspecified (principal); W01.0XXA Fall on same level from slipping, tripping and stumbling without subsequent striking against object, initial encounter; E11.9 Type 2 diabetes mellitus without complications; I11.0 Hypertensive heart disease with heart failure; I50.9 Heart failure, unspecified; E78.5 Hyperlipidemia, unspecified; Z79.02 Long term (current) use of antithrombotics/antiplatelets; Z79.84 Long term (current) use of oral hypoglycemic drugs; Z79.891 Long term (current) use of opiate analgesic; Z79.52 Long term (current) use of systemic steroids; Z79.899 Other long term (current) drug therapy
CPT/HCPCS: 72110; 96372; 99284; J1171; J2360; J2919

== ENCOUNTER 2025-01-01 13:58 | Emergency (ER) | payer MEDICARE, OTHER ==
--- NOTE | 2025-01-01 14:13 | ERPHSYRPT ---
- History of Present Illness Time Seen by Provider: 01/01/25 14:12 Historian: patient, EMS Exam Limitations: no limitations Physician History: This is an obese 69-year-old white male patient of Dr. 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 By the time patient arrived to the emergency department, the patient has no significant right upper quad abdominal pain. He denies chest pain. He denies shortness of breath. Patient has known cholelithiasis and is scheduled for an outpatient general surgical consultation on 01/04/2025. I reviewed the radiologist's impression of the gallbladder ultrasound performed on 10/18/2024 which shows cholelithiasis without cholecystitis. I also reviewed the radiologist's impression of the gallbladder HIDA scan performed on 10/20/2024 which shows an abnormally low gallbladder ejection fraction of 12%. Patient has multiple medical problems including chronic angina, diabetes, coronary artery disease including CABG and cardiac stents and is on Plavix. Patient has a history of hyperlipidemia, hypertension, COPD and a history of pulmonary embolism. Again, he has no chest pain, he has no shortness of breath, he currently has very mild right upper quad abdominal pain. The right upper quadrant abdominal pain is much improved upon arrival to the emergency department. Timing/Duration: today Quality: sharpness, stabbing Abdominal Pain Onset Location: RUQ Pain Radiation: no radiation Severity of Pain-Max: moderate Severity of Pain-Current: none Modifying Factors: Improves With: nothing Associated Symptoms: loss of appetite, No chest pain, No shortness of breath, No vomiting, No weakness Previous symptoms: same symptoms as today, recently seen Allergies/Adverse Reactions: gabapentin Adverse Reaction (Verified 12/08/24 14:01) "got kind of loopy" Home Medications: Ezetimibe 10 mg [Zetia 10 MG] 10 mg PO DAILY 10/18/24 [History] Clopidogrel Bisulfate [Clopidogrel] 75 mg PO DAILY 10/19/24 [History] Isosorbide Mononitrate 30 mg PO DAILY 10/19/24 [History] Metformin HCl 500 mg [Glucophage 500 MG] 500 mg PO BIDWM 10/19/24 [History] PANTOPRAZOLE 40 mg Tablet [Protonix 40MG Tablet] 40 mg PO BID 10/19/24 [History] Potassium Chloride 20 meq PO DAILY 10/19/24 [History] allopurinoL [Zyloprim] 200 mg PO DAILY 10/19/24 [History] Hx Tetanus, Diphtheria Vaccination/Date Given: No Hx Influenza Vaccination/Date Given: Yes Hx Pneumococcal Vaccination/Date Given: Yes Travel Risk - International Travel Have you traveled outside of the country in past 3 weeks: No - Emerging Infectious Disease Are you exhibiting symptoms associated with any current EIDs: No Symptoms: Abdominal Pain - Review of Systems Constitutional: No Symptoms Eyes: No Symptoms Ears, Nose, & Throat: No Symptoms Respiratory: No Symptoms Cardiac: No Symptoms Abdominal/Gastrointestinal: Abdominal Pain (RUQ), Appetite Changes Genitourinary Symptoms: No Symptoms Musculoskeletal: No Symptoms Skin: No Symptoms Neurological: No Symptoms Psychological: No Symptoms Endocrine: No Symptoms Hematologic/Lymphatic: No Symptoms Immunological/Allergic: No Symptoms All Other Systems: Reviewed and Negative - Past Medical History Pertinent Past Medical History: Yes Neurological History: No Pertinent History ENT History: No Pertinent History Cardiac History: Angina, Congestive Heart Failure, Coronary Artery Disease, High Cholesterol, Hypertension, Myocardial Infarction (ND) Respiratory History: COPD, Pulmonary Embolism Endocrine Medical History: Diabetes Type II Musculoskeletal History: Osteoarthritis GI Medical History: No Pertinent History History: No Pertinent History Psycho-Social History: Depression Male Reproductive Disorders: No Pertinent History Other Medical History: fractured ribs, anemia, gout - Past Surgical History Past Surgical History: Yes Neuro Surgical History: No Pertinent History Cardiac: CABG, Cardiac Catheterization, Cardiac Stent, Other Respiratory: Chest Surgery Gastrointestinal: No Pertinent History Genitourinary: No Pertinent History Musculoskeletal: Orthopedic Surgery Male Surgical History: No Pertinent History Other Surgical History: umbilical, triple bypass, L shoulder. polyp removal, right 4th/5th toe amputation Significant Family History: no pertinent family hx - Social History Smoking Status: Current every day smoker - Social Determinants of Health Will the patient participate in the screening: Yes Do you worry about a steady place to live?: No In the past 12 months,have you had to go without utilities?: No Transportation Issues: No Has anyone in your support network made you feel unsafe?: No Have you or anyone in your house had to go w/o enough food: No - Nursing Vital Signs Nursing Vital Signs: Initial Vital Signs Temperature 97.2 F 01/01/25 14:19 Pulse Rate 63 01/01/25 14:19 Respiratory Rate 18 01/01/25 14:19 Blood Pressure 131/75 01/01/25 14:19 O2 Sat by Pulse Oximetry 98 01/01/25 14:19 Pain Scale Pain Intensity 3 - Physical Exam General Appearance: no apparent distress, alert, anxiety, obese Eye Exam: PERRL/EOMI, eyes nml inspection Ears, Nose, Throat Exam: normal ENT inspection, moist mucous membranes Neck Exam: normal inspection, non-tender, supple, full range of motion Respiratory Exam: normal breath sounds, lungs clear, airway intact, No chest tenderness, No respiratory distress Cardiovascular Exam: regular rate/rhythm, normal heart sounds, normal peripheral pulses Gastrointestinal/Abdomen Exam: soft, normal bowel sounds, tenderness (Very mild tenderness to right upper quadrant to palpation), No guarding, No rebound Rectal Exam: not done Back Exam: normal inspection, normal range of motion, No CVA tenderness, No vertebral tenderness Extremity Exam: normal inspection, normal range of motion, pelvis stable Neurologic Exam: alert, oriented x 3, cooperative, medical transcriber II-XII nml as tested, normal mood/affect, nml cerebellar function, nml station & gait, sensation nml Skin Exam: normal color, warm, dry Lymphatic Exam: No adenopathy SpO2 Interpretation: normal O2 Delivery: Room Air - Course Nursing assessment & vital signs reviewed: Yes EKG Interpreted by Me: RATE, Sinus Rhythm, NORMAL AXIS, NORMAL INTERVALS, Left Bundle Branch Block, Other (QTc is 466. No acute ischemia on today's twelve- lead EKG.) Ordered Tests: Active Orders 24 hr Category Date Time Status EKG-ER Only STAT Care 01/01/25 14:43 Active ABDOMEN AND PELVIS W/0 CONTRAS [CT] Stat Exams 01/01/25 14:43 Completed AMYLASE Stat Lab 01/01/25 15:00 Completed CBC W DIFF Stat Lab 01/01/25 15:00 Completed CMP Stat Lab 01/01/25 15:00 Completed LIPASE Stat Lab 01/01/25 15:00 Completed TROPONIN Q4H Lab 01/01/25 15:00 Completed TROPONIN Q4H Lab 01/01/25 18:45 Ordered TROPONIN Q4H Lab 01/01/25 22:45 Ordered Medication Summary Discontinued Medications Generic Name Dose Route Start Last Admin Trade Name Freq PRN Reason Stop Dose Admin Morphine Sulfate 2 mg 01/01/25 14:43 01/01/25 14:57 Morphine Sulfate 2 Mg/Ml Inj IV 01/01/25 14:44 2 mg STAT ONE Administration Morphine Sulfate Confirm 01/01/25 14:55 Morphine Sulfate 2 Mg/Ml Inj Administered 01/01/25 14:56 Dose 2 mg .ROUTE .STK-MED ONE Ondansetron HCl 4 mg 01/01/25 14:43 01/01/25 14:57 Ondansetron Hcl 4 Mg/2 Ml Vial IV 01/01/25 14:44 4 mg STAT ONE Administration Ondansetron HCl Confirm 01/01/25 14:54 Ondansetron Hcl 4 Mg/2 Ml Vial Administered 01/01/25 14:55 Dose 4 mg .ROUTE .STK-MED ONE Lab/Rad Data: Laboratory Result Diagrams 01/01/25 15:00 01/01/25 15:00 Laboratory Results 01/01/25 01/01/25 01/01/25 Range/Units 15:00 15:00 15:00 WBC 6.0 (4.23-9.07) x10^3/uL RBC 4.03 L (4.63-6.08) x10^6/uL Hgb 11.5 L (13.7-17.5) g/dL Hct 38.7 L (40.1-51.0) % MCV 96.0 H (79.0-92.2) fL MCH 28.5 (25.7-32.2) pg MCHC 29.7 L (32.3-36.5) g/dL RDW 13.9 (11.6-14.4) % Plt Count 150 L (163-337) x10^3/uL MPV 12.4 (9.4-12.4) fL Gran % 83.5 H (34.0-67.9) % Immature Gran % (Auto) 0.2 (0.001-0.429) % Nucleat RBC Rel Count 0.0 (0.00-0.2) % Eos # (Auto) 0.05 (0.04-0.54) x10^3/uL Immature Gran # (Auto) 0.01 (0.001-0.031) x10^3u/L Absolute Lymphs (auto) 0.63 L (1.32-3.57) x10^3/uL Absolute Monos (auto) 0.29 L (0.30-0.82) x10^3/uL Absolute Nucleated RBC 0.00 (0.00-0.012) x10^3u/L Lymphocytes % 10.6 L (21.8-53.1) % Monocytes % 4.9 L (5.3-12.2) % Eosinophils % 0.8 (0.8-7.0) % Basophils % 0.0 L (0.2-1.2) % Absolute Granulocytes 4.99 (1.78-5.38) x10^3/uL Basophils # 0 L (0.01-0.08) x10^3/uL Sodium 144 (135-145) mmol/L Potassium 4.7 (3.5-5.1) mmol/L Chloride 112 H (98-107) mmol/L Carbon Dioxide 19 L (22-30) mmol/L Anion Gap 18.1 H (5-15) MEQ/L BUN 53 H (9-20) mg/dL Creatinine 2.12 H (0.66-1.25) mg/dL Estimated GFR 33.3 ML/MIN Glucose 117 H (74-106) mg/dL Calcium 9.6 (8.4-10.2) mg/dL Total Bilirubin 0.60 (0.2-1.3) mg/dL AST 22 (17-59) U/L ALT 17 (0-50) U/L Alkaline Phosphatase 78 (38-126) U/L Troponin I 0.013 (0.000-0.033) ng/mL Serum Total Protein 6.4 (6.3-8.2) g/dL Albumin 4.0 (3.5-5.0) g/dL Amylase 64 (30-110) U/L Lipase 32 (23-300) U/L - Progress Progress: improved, pain not gone completely Progress Note: 01/01/25 14:52 My medical decision making and the assignment of moderate complexity to this patient's medical issue today is based on review of the patient's past medical history, review the patient's medication list, reviewed patient drug allergy list, history present illness and physical findings on examination. The workup in this patient includes placement of a intravenous line, CBC, CMP, amylase, lipase, CT scan of the abdomen pelvis without contrast, twelve-lead EKG, troponin level. Differential diagnosis includes but is not limited to symptomatic cholelithiasis, acute cholecystitis, myocardial infarction, angina 01/01/25 16:36 I interpreted the patient's laboratory data results. Patient has chronic renal failure and over the last several months his GFR is in the range of where he has been running. He needs to follow-up with his check writer salesperson as an outpatient. The CT scan of the abdomen pelvis was performed without contrast and was interpreted by the radiologist and I reviewed the impression. The impression states compared to similar study dated 10/27/2024, there is stable, mildly distended gallbladder. There is evidence of chronic pancreatitis. There is no new or acute findings. Counseled pt/family regarding: lab results, diagnosis, need for follow-up, rad results Medical Desision Making - Diagnostic Testing Diagnostic test were ordered, analyzed, and reviewed by me: Yes Radiological Interpretation: Reviewed by me, Teleradiologist Report - Risk of complications Low Risk: Low risk of morbidity from additional dx testing or treatment - Departure Departure Disposition: Home Clinical Impression: Chronic cholecystitis, Cholelithiasis, Chronic renal failure Condition: Stable Critical Care Time: No Referrals: NICCI CLAROS MD [Primary Care Provider] - Follow up/PCP as directed Additional Instructions: Take all your medications as prescribed. Keep your appointment with the general surgeon you have for 01/04/2025. Avoid fatty greasy spicy foods. Call your outpatient physician for outpatient pain control
[2025-01-01 14:22] VITALS: TEMP 97.2
[2025-01-01] MEDS ORDERED: Zofran 4 MG/2 ML VIAL ONE (14:54)
[2025-01-01] MEDS ORDERED: MORPHINE SULFATE 2 MG INJ ONE (14:55)
[2025-01-01] MEDS: Zofran 4 MG/2 ML VIAL IV ONE (14:57)
[2025-01-01] MEDS: MORPHINE SULFATE 2 MG INJ IV ONE (14:57)
[2025-01-01 15:10] LABS: Absolute Neutrophil Ct (ANC) 4.99 x10^3/uL (1.78-5.38); Basophil (Absolute #) 0 x10^3/uL (0.01-0.08); Eosinophil % 0.8 % (0.8-7.0); Eosinophil (Absolute #) 0.05 x10^3/uL (0.04-0.54); Hematocrit 38.7 % (40.1-51.0); Hemoglobin 11.5 g/dL (13.7-17.5); IMMATURE GRAN # 0.01 x10^3u/L (0.001-0.031); IMMATURE GRAN % 0.2 % (0.001-0.429); Lymphocyte (Absolute #) 0.63 x10^3/uL (1.32-3.57); Lymphocytes % 10.6 % (21.8-53.1); Mean Corpuscular Hemoglobin 28.5 pg (25.7-32.2); Mean Corpuscular Hgb Concent. 29.7 g/dL (32.3-36.5); Mean Platelet Volume 12.4 fL (9.4-12.4); Monocyte (Absolute #) 0.29 x10^3/uL (0.30-0.82); Monocytes % 4.9 % (5.3-12.2); Neutrophil % 83.5 % (34.0-67.9); Platelet Count 150 x10^3/uL (163-337); Red Blood Count 4.03 x10^6/uL (4.63-6.08); Red Cell Distribution Width 13.9 % (11.6-14.4)
[2025-01-01 15:14] VITALS: O2SAT 95
[2025-01-01 15:24] LABS: ANION GAP 18.1 MEQ/L (5-15); BILIRUBIN,TOTAL 0.6 mg/dL (0.2-1.3); Calcium 9.6 mg/dL (8.4-10.2); Creatinine 1 2.12 mg/dL (0.66-1.25); EST GLOMERULAR FILTRATION RATE 33.3 ML/MIN; Potassium 4.7 mmol/L (3.5-5.1); Total Protein 6.4 g/dL (6.3-8.2)
--- NOTE | 2025-01-01 16:27 | XRAY ---
Indication: Severe right upper quadrant pain. Multiple contiguous axial images obtained through the abdomen and pelvis without contrast. Comparison: October 27, 2024 Lung bases again demonstrates minimal subsegmental atelectasis/scarring and tiny right lower lobe calcified granulomas. No infiltrate or effusion. Heart remains borderline enlarged. Noncontrasted stomach and bowel loops nonobstructed. Again normal appendix. There remains mild diffuse scattered colonic fecal debris including rectum. Again mildly distended gallbladder with stable small gallstones. Stable tiny chronic pancreatitis calcifications and tiny splenic calcified granuloma. No free fluid/air. Remaining liver, pancreas, spleen, adrenal glands, kidneys, ureters, and bladder are unremarkable for noncontrast exam. Stable mild scattered aortoiliac calcifications without AAA. Osseous structures intact with osteopenia, mild/moderate multilevel thoracolumbar degenerative spondylosis, mild levorotoscoliosis centered at L3, and mild changes both hips. Impression: 1. Stable mild distended gallbladder with gallstones. See gallbladder sonogram October 20, 2024 and nuclear medicine HIDA scan October 20, 2024. 2. Again multiple diffuse fecal stasis, borderline cardiomegaly, chronic pancreatitis calcifications, arteriosclerotic disease, chronic bony findings, and old granulomatous disease. 3. No new/acute findings on this noncontrast exam.
[2025-01-01 17:18] VITALS: BP 144/75; PULSE 68; RESP 18
== END 2025-01-01 17:25 | disposition home or self-care (01) ==
LOC: ED 13:58
DX: K80.10 Calculus of gallbladder with chronic cholecystitis without obstruction (principal); I13.0 Hypertensive heart and chronic kidney disease with heart failure and stage 1 through stage 4 chronic kidney disease, or unspecified chronic kidney disease; E11.22 Type 2 diabetes mellitus with diabetic chronic kidney disease; N18.9 Chronic kidney disease, unspecified; I50.9 Heart failure, unspecified; R10.11 Right upper quadrant pain; E78.5 Hyperlipidemia, unspecified; Z79.02 Long term (current) use of antithrombotics/antiplatelets; Z79.84 Long term (current) use of oral hypoglycemic drugs; Z79.899 Other long term (current) drug therapy; Z72.0 Tobacco use
CPT/HCPCS: 36415; 74176; 80053; 82150; 83690; 84484; 85025; 93005; 96374; 96375; 99284; J2270; J2405

== ENCOUNTER 2025-01-13 21:02 | Emergency (ER) | payer MEDICARE, OTHER ==
[2025-01-13 21:15] VITALS: RESP 12; TEMP 97
--- NOTE | 2025-01-13 21:21 | ERPHSYRPT ---
- History of Present Illness Time Seen by Provider: 01/13/25 21:18 Historian: patient, EMS Patient Subjective Stated Complaint: PT. STATES, "I THINK I PASSED A COUPLE OF KIDNEY STONES EARLIER TODAY AND I'M STILL HAVING PAIN IN MY RT. SIDE/BACK AREA." Triage Nursing Assessment: PT. ARRIVES VIA EMS, ABLE TO MOVE SELF FROM STRETCHER TO BED. A&OX3, SKIN P/W/D, RESP EVEN UNLABORED, GRIMACING IN PAIN DURING MOVEMENT. 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 Patient thought he already passed 2 tiny stone but his pain started increasing again so he came to the emergency room. He denies any fever chills nausea or vomiting. Timing/Duration: today Activities at Onset: none Quality: cramping, throbbing Abdominal Pain Onset Location: flank (right) Pain Radiation: groin Severity of Pain-Max: moderate Severity of Pain-Current: moderate Modifying Factors: Improves With: nothing Associated Symptoms: denies symptoms Previous symptoms: same symptoms as today Body Map: 1 - area of pain Allergies/Adverse Reactions: gabapentin Adverse Reaction (Verified 12/08/24 14:01) "got kind of loopy" Home Medications: Ezetimibe 10 mg [Zetia 10 MG] 10 mg PO DAILY 10/18/24 [History] Isosorbide Mononitrate 30 mg PO DAILY 10/19/24 [History] Metformin HCl 500 mg [Glucophage 500 MG] 500 mg PO BIDWM 10/19/24 [History] PANTOPRAZOLE 40 mg Tablet [Protonix 40MG Tablet] 40 mg PO BID 10/19/24 [History] Potassium Chloride 20 meq PO DAILY 10/19/24 [History] allopurinoL [Zyloprim] 200 mg PO DAILY 10/19/24 [History] Hx Tetanus, Diphtheria Vaccination/Date Given: No Hx Influenza Vaccination/Date Given: Yes Hx Pneumococcal Vaccination/Date Given: Yes Immunizations Up to Date: No Travel Risk - International Travel Have you traveled outside of the country in past 3 weeks: No - Emerging Infectious Disease Are you exhibiting symptoms associated with any current EIDs: No Symptoms: Abdominal Pain - Review of Systems Constitutional: No Fever, No Chills Eyes: No Symptoms Ears, Nose, & Throat: No Symptoms Respiratory: No Cough, No Dyspnea Cardiac: No Chest Pain, No Edema, No Syncope Abdominal/Gastrointestinal: Abdominal Pain, No Nausea, No Vomiting, No Diarrhea Genitourinary Symptoms: Flank Pain, No Dysuria Musculoskeletal: No Back Pain, No Neck Pain Skin: No Rash Neurological: No Dizziness, No Focal Weakness, No Sensory Changes Psychological: No Symptoms Endocrine: No Symptoms All Other Systems: Reviewed and Negative - Past Medical History Pertinent Past Medical History: Yes Neurological History: No Pertinent History ENT History: No Pertinent History Cardiac History: Angina, Congestive Heart Failure, Coronary Artery Disease, High Cholesterol, Hypertension, Myocardial Infarction (MA) Respiratory History: COPD, Pulmonary Embolism Endocrine Medical History: Diabetes Type II Musculoskeletal History: Osteoarthritis GI Medical History: No Pertinent History History: No Pertinent History Psycho-Social History: Depression Male Reproductive Disorders: No Pertinent History Other Medical History: fractured ribs, anemia, gout - Past Surgical History Past Surgical History: Yes Neuro Surgical History: No Pertinent History Cardiac: CABG, Cardiac Catheterization, Cardiac Stent, Other Respiratory: Chest Surgery Gastrointestinal: No Pertinent History Genitourinary: No Pertinent History Musculoskeletal: Orthopedic Surgery Male Surgical History: No Pertinent History Other Surgical History: umbilical, triple bypass, L shoulder. polyp removal, right 4th/5th toe amputation Significant Family History: no pertinent family hx - Social History Smoking Status: Current every day smoker Exposure to second hand smoke: Yes Drug Use: none - Social Determinants of Health Will the patient participate in the screening: Declined to provide Do you worry about a steady place to live?: No In the past 12 months,have you had to go without utilities?: No Transportation Issues: No Has anyone in your support network made you feel unsafe?: No Have you or anyone in your house had to go w/o enough food: No - Nursing Vital Signs Nursing Vital Signs: Initial Vital Signs Temperature 97.0 F 01/13/25 21:08 Pulse Rate 74 01/13/25 21:08 Respiratory Rate 12 01/13/25 21:08 Blood Pressure 161/78 01/13/25 21:08 O2 Sat by Pulse Oximetry 98 01/13/25 21:08 Pain Scale Pain Intensity 6 - Physical Exam General Appearance: no apparent distress, alert Eye Exam: PERRL/EOMI, eyes nml inspection Ears, Nose, Throat Exam: normal ENT inspection, pharynx normal, moist mucous membranes Neck Exam: normal inspection, non-tender, supple, full range of motion Respiratory Exam: normal breath sounds, lungs clear, No respiratory distress Cardiovascular Exam: regular rate/rhythm, normal heart sounds Gastrointestinal/Abdomen Exam: soft, normal bowel sounds, tenderness (right flank), No mass Back Exam: normal inspection, normal range of motion, No CVA tenderness, No vertebral tenderness Extremity Exam: normal inspection, normal range of motion, pelvis stable Neurologic Exam: alert, oriented x 3, cooperative, normal mood/affect, nml cerebellar function, sensation nml, No motor deficits Skin Exam: normal color, warm, dry SpO2 Interpretation: normal SpO2: 98 O2 Delivery: Room Air - Course Nursing assessment & vital signs reviewed: Yes - CT Exams Abdomen/Pelvis CT Interpretation: Tele-radiologist Report Ordered Tests: Active Orders 24 hr Category Date Time Status ABDOMEN AND PELVIS W/0 CONTRAS [CT] Stat Exams 01/13/25 21:17 Completed AMYLASE Stat Lab 01/13/25 21:29 Completed CBC W DIFF Stat Lab 01/13/25 21:29 Completed CMP Stat Lab 01/13/25 21:29 Completed LIPASE Stat Lab 01/13/25 21:29 Completed TROPONIN Stat Lab 01/13/25 21:29 Completed UA W/RFX UR CULTURE Stat Lab 01/13/25 21:17 Ordered Medication Summary Discontinued Medications Generic Name Dose Route Start Last Admin Trade Name Freq PRN Reason Stop Dose Admin Sodium Chloride 1,000 mls @ 999 mls/hr 01/13/25 21:16 01/13/25 21:36 Sodium Chloride 0.9% 1000 Ml IV 01/13/25 22:16 999 mls/hr .Q1H1M STA Administration Sodium Chloride Confirm 01/13/25 21:28 Sodium Chloride 0.9% 1000 Ml Administered 01/13/25 21:29 Dose 1,000 mls @ ud .ROUTE .STK-MED ONE Morphine Sulfate 4 mg 01/13/25 21:16 01/13/25 21:36 Morphine Sulfate 4 Mg/Ml Injection IV 01/13/25 21:17 4 mg STAT ONE Administration Morphine Sulfate Confirm 01/13/25 21:28 Morphine Sulfate 4 Mg/Ml Injection Administered 01/13/25 21:29 Dose 4 mg .ROUTE .STK-MED ONE Ondansetron HCl 4 mg 01/13/25 21:16 01/13/25 21:35 Ondansetron Hcl 4 Mg/2 Ml Vial IV 01/13/25 21:17 4 mg STAT ONE Administration Ondansetron HCl Confirm 01/13/25 21:28 Ondansetron Hcl 4 Mg/2 Ml Vial Administered 01/13/25 21:29 Dose 4 mg .ROUTE .STK-MED ONE Lab/Rad Data: Laboratory Result Diagrams 01/13/25 21:29 01/13/25 21:29 Laboratory Results 01/13/25 01/13/25 Range/Units 21:29 21:29 WBC 5.2 (4.23-9.07) x10^3/uL RBC 3.81 L (4.63-6.08) x10^6/uL Hgb 11.3 L (13.7-17.5) g/dL Hct 35.5 L (40.1-51.0) % MCV 93.2 H (79.0-92.2) fL MCH 29.7 (25.7-32.2) pg MCHC 31.8 L (32.3-36.5) g/dL RDW 14.3 (11.6-14.4) % Plt Count 141 L (163-337) x10^3/uL MPV 12.0 (9.4-12.4) fL Gran % 78.2 H (34.0-67.9) % Immature Gran % (Auto) 0.4 (0.001-0.429) % Nucleat RBC Rel Count 0.0 (0.00-0.2) % Eos # (Auto) 0.06 (0.04-0.54) x10^3/uL Immature Gran # (Auto) 0.02 (0.001-0.031) x10^3u/L Absolute Lymphs (auto) 0.69 L (1.32-3.57) x10^3/uL Absolute Monos (auto) 0.35 (0.30-0.82) x10^3/uL Absolute Nucleated RBC 0.00 (0.00-0.012) x10^3u/L Lymphocytes % 13.3 L (21.8-53.1) % Monocytes % 6.7 (5.3-12.2) % Eosinophils % 1.2 (0.8-7.0) % Basophils % 0.2 (0.2-1.2) % Absolute Granulocytes 4.07 (1.78-5.38) x10^3/uL Basophils # 0.01 (0.01-0.08) x10^3/uL Sodium 145 (135-145) mmol/L Potassium 4.2 (3.5-5.1) mmol/L Chloride 112 H (98-107) mmol/L Carbon Dioxide 20 L (22-30) mmol/L Anion Gap 17.3 H (5-15) MEQ/L BUN 52 H (9-20) mg/dL Creatinine 1.93 H (0.66-1.25) mg/dL Estimated GFR 37.2 ML/MIN Glucose 187 H (74-106) mg/dL Calcium 8.8 (8.4-10.2) mg/dL Total Bilirubin 0.60 (0.2-1.3) mg/dL AST 33 (17-59) U/L ALT 18 (0-50) U/L Alkaline Phosphatase 63 (38-126) U/L Troponin I 0.023 (0.000-0.033) ng/mL Serum Total Protein 6.8 (6.3-8.2) g/dL Albumin 4.1 (3.5-5.0) g/dL Amylase 86 (30-110) U/L Lipase 47 (23-300) U/L LINICAL HISTORY: right flank pain COMPARISON: 14:12:32 DIRECTOR PROSPECT: stable TECHNIQUE: Contiguous axial images were obtained from the level of the diaphragm to the pubic symphysis without intravenous or oral contrast. Coronal and sagittal reconstructions were likewise performed and indicated to increase the sensitivity for detecting clinically relevant pathology. CT scan was performed according to ALARA (as low as reasonable achievable). FINDINGS: The visualized lung bases are clear. Evaluation of the abdominal and pelvic visceral organs is limited without intravenous contrast. The unenhanced liver, spleen, pancreas, and adrenal glands are grossly unremarkable. The gallbladder shows cholelithiasis The kidneys are normal in size and attenuation without obvious calcification. There is no hydronephrosis. Pperinephric stranding present. The ureters are normal in caliber. No adenopathy or fluid collections are seen. No evidence of focal or diffuse bowel wall thickening or evidence of bowel obstruction is seen. The appendix is visualized in the right lower quadrant and PatientID: [id number] Patient Name: ESTEFANIA CLEMENTS Exam Date: 01/13/2025 Procedure: ABDOMEN AND PELVIS W/0 CONTRAS page 1 of 2 appears within normal limits. The aorta is normal in caliber. The urinary bladder is normal in contour. Pelvic viscera are grossly u nremarkable. No aggressive appearing osseous lesions are identified. IMPRESSION: 1 Cholelithiasis 2 Perinephric fat stranding: renal parenchymal disease - Progress Progress: improved, pain not gone completely Counseled pt/family regarding: lab results, diagnosis, need for follow-up, rad results Medical Desision Making - Diagnostic Testing Diagnostic test were ordered, analyzed, and reviewed by me: Yes Radiological Interpretation: Teleradiologist Report - Risk of complications Low Risk: Low risk of morbidity from additional dx testing or treatment - Departure Departure Disposition: Home Clinical Impression: Cholelithiases Qualifiers: Cholelithiasis location: gallbladder Cholecystitis presence: without cholecystitis Biliary obstruction: without biliary obstruction Qualified Code(s): K80.20 - Calculus of gallbladder without cholecystitis without obstruction Condition: Stable Critical Care Time: No Referrals: NICCI CLAROS MD [Primary Care Provider] - Follow up/PCP as directed Instructions: Gallstones - ED discharge instructions, Gallstones, Gallstones - Discharge instructions Additional Instructions: Discharge/Care Plan ESTEFANIA CLEMENTS was seen on 01/13/25 in the Emergency Room. The patient was counseled regarding Diagnosis,Lab results, Imaging studies, need for follow up and when to return to the Emergency Room. Prescriptions given: Discharge Note I have spoken with the patient and/or caregivers. I have explained the patient's condition, diagnosis and treatment plan based on the information available to me at this time. I have answered the patient's and/or caregiver's questions and addressed any concerns. The patient and/or caregivers have as good understanding of the patient's diagnosis, condition and treatment plan as can be expected at this point. The vital signs have been stable. The patient's condition is stable and appropriate for discharge from the emergency department. The patient will pursue further outpatient evaluation with the primary care physician or other designated or consulting physician as outlined in the discharge instructions. The patient and/or caregivers are agreeable to this plan of care and follow-up instructions have been explained in detail. The patient and/or caregivers have received these instruction. The patient/and or caregivers are aware that any significant change in condition or worsening of symptoms should prompt an immediate return to this or the closest emergency department or call 911. ESTEFANIA CLEMENTS was seen on 01/13/25 n the Emergency Room. At that time you were treated for an emergent condition, during your visit Laboratory, Radiology and/or other procedures may have been ordered. It is very important that you follow-up with your Primary Care Physician NICCI CLAROS within the next 24- 48 hours to review your Emergency Room visit and the final results of testing that was ordered. Some test results such as Urine Cultures, Blood Cultures, and other cultures if ordered will not be finalized for 24-48 hours. If you do not have a Primary Care Provider please call the medical records department at [phone] ext [phone] to obtain a copy of your results or you may sign into our patient portal to obtain these results by visiting us @ [email or web address] and completing the following steps: 1. Click on the Patient Portal link 2. Click the Patient Self Enrollment Link to complete the enrollment form and en tering your 3. Once the enrollment form is completed you will receive an email with a temporary ID and password at the email address you provided. 4. Next choose a user name and password. Your user name must be at least 4 characters long and your password must be at least 4 characters long. 5. Choose a security question from the list and provide your answer to the question. If you already have signed into the Health Portal you may access your Health Care Information 03/05 by the following steps: 1. Login to our website @ [email or web address] 2. Enter your original user name and password. FAQS The [facility] Health Portal is an online tool that contains your Lab Results, Radiology Reports, Visit History, Discharge Instructions and Health Summary Lab and Radiology Results will not be available for 72 hours on the portal. The Portal is a secure site, passwords are encryted and URLs are re-written so they cannot be copied and pasted. You and authorized family members are the only ones who can access your Portal. Also there is a timeout feature that protects your information if you leave the Portal page open. If you have technical difficulty please use the Contact Us link on the page this will allow you to submit any questions you have regarding the Portal or you may contact the Medical Record Department at [phone] ext [phone]. Outpatient Orders: GALLBLADDER Facility: [facility], Location: RADIOLOGY
[2025-01-13] MEDS ORDERED: Sodium Chloride 0.9% 1000 ML 1,000 ML ONE (21:28)
[2025-01-13] MEDS ORDERED: MORPHINE SULFATE 4 MG INJ ONE (21:28)
[2025-01-13] MEDS ORDERED: Zofran 4 MG/2 ML VIAL ONE (21:28)
[2025-01-13 21:30] LABS: Absolute Neutrophil Ct (ANC) 4.07 x10^3/uL (1.78-5.38); BASOPHIL % 0.2 % (0.2-1.2); Basophil (Absolute #) 0.01 x10^3/uL (0.01-0.08); Eosinophil % 1.2 % (0.8-7.0); Eosinophil (Absolute #) 0.06 x10^3/uL (0.04-0.54); Hematocrit 35.5 % (40.1-51.0); Hemoglobin 11.3 g/dL (13.7-17.5); IMMATURE GRAN # 0.02 x10^3u/L (0.001-0.031); IMMATURE GRAN % 0.4 % (0.001-0.429); Lymphocyte (Absolute #) 0.69 x10^3/uL (1.32-3.57); Lymphocytes % 13.3 % (21.8-53.1); Mean Cell Volume 93.2 fL (79.0-92.2); Mean Corpuscular Hemoglobin 29.7 pg (25.7-32.2); Mean Corpuscular Hgb Concent. 31.8 g/dL (32.3-36.5); Monocyte (Absolute #) 0.35 x10^3/uL (0.30-0.82); Monocytes % 6.7 % (5.3-12.2); Neutrophil % 78.2 % (34.0-67.9); Platelet Count 141 x10^3/uL (163-337); Red Blood Count 3.81 x10^6/uL (4.63-6.08); Red Cell Distribution Width 14.3 % (11.6-14.4); White Blood Count 5.2 x10^3/uL (4.23-9.07)
[2025-01-13] MEDS: Zofran 4 MG/2 ML VIAL IV ONE (21:35)
[2025-01-13] MEDS: MORPHINE SULFATE 4 MG INJ IV ONE (21:36)
[2025-01-13] MEDS: Sodium Chloride 0.9% 1000 ML 1,000 ML IV STA (21:36)
[2025-01-13 21:43] LABS: ALBUMIN 4.1 g/dL (3.5-5.0); ANION GAP 17.3 MEQ/L (5-15); BILIRUBIN,TOTAL 0.6 mg/dL (0.2-1.3); Calcium 8.8 mg/dL (8.4-10.2); Creatinine 1 1.93 mg/dL (0.66-1.25); EST GLOMERULAR FILTRATION RATE 37.2 ML/MIN; Potassium 4.2 mmol/L (3.5-5.1); Total Protein 6.8 g/dL (6.3-8.2)
[2025-01-13 21:57] LABS: TROPONIN 0.023 ng/mL (0.000-0.033)
--- NOTE | 2025-01-13 22:41 | XRAY ---
CLINICAL HISTORY: right flank pain COMPARISON: 14:12:32 MAIL OFFICER: stable TECHNIQUE: Contiguous axial images were obtained from the level of the diaphragm to the pubic symphysis without intravenous or oral contrast. Coronal and sagittal reconstructions were likewise performed and indicated to increase the sensitivity for detecting clinically relevant pathology. CT scan was performed according to ALARA (as low as reasonable achievable). FINDINGS: The visualized lung bases are clear. Evaluation of the abdominal and pelvic visceral organs is limited without intravenous contrast. The unenhanced liver, spleen, pancreas, and adrenal glands are grossly unremarkable. The gallbladder shows cholelithiasis The kidneys are normal in size and attenuation without obvious calcification. There is no hydronephrosis. Pperinephric stranding present. The ureters are normal in caliber. No adenopathy or fluid collections are seen. No evidence of focal or diffuse bowel wall thickening or evidence of bowel obstruction is seen. The appendix is visualized in the right lower quadrant and appears within normal limits. The aorta is normal in caliber. The urinary bladder is normal in contour. Pelvic viscera are grossly unremarkable. No aggressive appearing osseous lesions are identified. IMPRESSION: 1 Cholelithiasis 2 Perinephric fat stranding: renal parenchymal disease Electronically Signed by: Frederick Covarrubias MD. (01/13/2025 22:37:35 EDT)
[2025-01-13 23:13] LABS: Appearance Clear (Clear); Ketones Negative (Negative); Leukocyte Esterase Negative (Negative); Nitrite Negative (Negative); Protein,Urine Dip >=1000 (Negative); Specific Gravity 1.015 (1.005-1.030); Urobilinogen 0.2 mg/dL (0.2)
[2025-01-13 23:14] LABS: Bilirubin Negative (Negative); Blood Small (Negative); Glucose, Urine 100 mg/dL (Negative)
[2025-01-13 23:15] LABS: Bacteria Rare /HPF (None Seen); Epithelial Cells Few /HPF (None Seen)
[2025-01-14 00:09] VITALS: BP 175/135; PULSE 77; O2SAT 97
== END 2025-01-13 23:49 | disposition home or self-care (01) ==
LOC: ED 21:02
DX: K80.20 Calculus of gallbladder without cholecystitis without obstruction (principal); R10.11 Right upper quadrant pain; E78.5 Hyperlipidemia, unspecified; I11.0 Hypertensive heart disease with heart failure; I50.9 Heart failure, unspecified; E11.9 Type 2 diabetes mellitus without complications; Z79.84 Long term (current) use of oral hypoglycemic drugs; Z79.899 Other long term (current) drug therapy; Z72.0 Tobacco use
CPT/HCPCS: 36415; 74176; 80053; 81001; 82150; 83690; 84484; 85025; 96361; 96374; 96375; 99284; J2270; J2405

== ENCOUNTER 2025-02-13 16:27 | Observation (INO) | payer MEDICARE, OTHER ==
[2025-02-13 17:01] LABS: Absolute Neutrophil Ct (ANC) 5.05 x10^3/uL (1.78-5.38); BASOPHIL % 0.3 % (0.2-1.2); Basophil (Absolute #) 0.02 x10^3/uL (0.01-0.08); Eosinophil (Absolute #) 0.06 x10^3/uL (0.04-0.54); Hematocrit 33.2 % (40.1-51.0); Hemoglobin 10.8 g/dL (13.7-17.5); IMMATURE GRAN # 0.01 x10^3u/L (0.001-0.031); IMMATURE GRAN % 0.2 % (0.001-0.429); Lymphocyte (Absolute #) 0.63 x10^3/uL (1.32-3.57); Lymphocytes % 10.4 % (21.8-53.1); Mean Cell Volume 91.2 fL (79.0-92.2); Mean Corpuscular Hemoglobin 29.7 pg (25.7-32.2); Mean Corpuscular Hgb Concent. 32.5 g/dL (32.3-36.5); Mean Platelet Volume 12.1 fL (9.4-12.4); Monocyte (Absolute #) 0.28 x10^3/uL (0.30-0.82); Monocytes % 4.6 % (5.3-12.2); Neutrophil % 83.5 % (34.0-67.9); Platelet Count 157 x10^3/uL (163-337); Red Blood Count 3.64 x10^6/uL (4.63-6.08); Red Cell Distribution Width 14.5 % (11.6-14.4); White Blood Count 6.1 x10^3/uL (4.23-9.07)
--- NOTE | 2025-02-13 17:07 | ERPHSYRPT ---
- History of Present Illness Time Seen by Provider: 02/13/25 17:07 Source: patient Exam Limitations: no limitations Patient Subjective Stated Complaint: patient states he just wasn't feeling well thinks it may be his gallbladder Triage Nursing Assessment: patient alert oriented x3, patient states he got little funny feeling. vitals all within normal limits. pulses equal bialteral radius, skin warm dry nad intact, bowel sounds present x4. lung sounds clear. Physician History: 69-year-old male presents to our ED for evaluation of acute onset nausea and right upper quadrant pain. Patient states that he believes it is his gallbladder. Patient reports that he is getting his gallbladder removed in the next week. Patient was at home. He began to feel nauseous and pain in the right upper quadrant. Patient states "I did not feel well". Symptoms have since resolved. Patient currently asymptomatic. No trauma. Patient denies chest pain. No vomiting no diaphoresis. Symptoms are mild to moderate in intensity. No specific worsening or improving factors. Patient voices no other complaints or concerns at this time. Portions of this note were created with voice recognition technology. There may be grammatical, spelling, punctuation or sound alike errors Timing/Duration: today Severity: moderate Modifying Factors: Improves With: nothing Associated Symptoms: denies symptoms Allergies/Adverse Reactions: gabapentin Adverse Reaction (Verified 02/13/25 17:09) "got kind of loopy" Home Medications: Ezetimibe 10 mg [Zetia 10 MG] 10 mg PO DAILY 10/18/24 [History] Isosorbide Mononitrate 30 mg PO DAILY 10/19/24 [History] Metformin HCl 500 mg [Glucophage 500 MG] 500 mg PO BIDWM 10/19/24 [History] PANTOPRAZOLE 40 mg Tablet [Protonix 40MG Tablet] 40 mg PO BID 10/19/24 [History] Potassium Chloride 20 meq PO DAILY 10/19/24 [History] allopurinoL [Zyloprim] 200 mg PO DAILY 10/19/24 [History] Hx Tetanus, Diphtheria Vaccination/Date Given: No Hx Influenza Vaccination/Date Given: Yes Hx Pneumococcal Vaccination/Date Given: Yes Immunizations Up to Date: Yes Travel Risk - International Travel Have you traveled outside of the country in past 3 weeks: No - Emerging Infectious Disease Are you exhibiting symptoms associated with any current EIDs: No Symptoms: Abdominal Pain - Review of Systems Constitutional: No Symptoms, No Fever, No Chills Eyes: No Symptoms Ears, Nose, & Throat: No Symptoms Respiratory: No Symptoms, No Cough, No Dyspnea Cardiac: No Symptoms, No Chest Pain, No Edema, No Syncope Abdominal/Gastrointestinal: No Symptoms, No Abdominal Pain, No Nausea, No Vomiting, No Diarrhea Genitourinary Symptoms: No Symptoms, No Dysuria Musculoskeletal: No Symptoms, No Back Pain, No Neck Pain Skin: No Symptoms, No Rash Neurological: No Symptoms, No Dizziness, No Focal Weakness, No Sensory Changes Psychological: No Symptoms Endocrine: No Symptoms Hematologic/Lymphatic: No Symptoms Immunological/Allergic: No Symptoms All Other Systems: Reviewed and Negative - Past Medical History Pertinent Past Medical History: Yes Neurological History: No Pertinent History ENT History: No Pertinent History Cardiac History: Angina, Congestive Heart Failure, Coronary Artery Disease, High Cholesterol, Hypertension, Myocardial Infarction ([place]) Respiratory History: COPD, Pulmonary Embolism Endocrine Medical History: Diabetes Type II Musculoskeletal History: Osteoarthritis GI Medical History: No Pertinent History History: No Pertinent History Psycho-Social History: Depression Male Reproductive Disorders: No Pertinent History Other Medical History: fractured ribs, anemia, gout - Past Surgical History Past Surgical History: Yes Neuro Surgical History: No Pertinent History Cardiac: CABG, Cardiac Catheterization, Cardiac Stent, Other Respiratory: Chest Surgery Gastrointestinal: No Pertinent History Genitourinary: No Pertinent History Musculoskeletal: Orthopedic Surgery Male Surgical History: No Pertinent History Other Surgical History: umbilical, triple bypass, L shoulder. polyp removal, right 4th/5th toe amputation Significant Family History: no pertinent family hx - Social History Smoking Status: Current every day smoker Exposure to second hand smoke: Yes Drug Use: none - Social Determinants of Health Will the patient participate in the screening: Declined to provide Do you worry about a steady place to live?: No In the past 12 months,have you had to go without utilities?: No Transportation Issues: No Has anyone in your support network made you feel unsafe?: No Have you or anyone in your house had to go w/o enough food: No - Nursing Vital Signs Nursing Vital Signs: Initial Vital Signs Pulse Rate 70 02/13/25 16:31 Respiratory Rate 28 H 02/13/25 16:31 Blood Pressure 123/61 02/13/25 16:31 O2 Sat by Pulse Oximetry 94 L 02/13/25 16:31 Pain Scale Pain Intensity 2 - Physical Exam General Appearance: no apparent distress, alert Eye Exam: PERRL/EOMI, eyes nml inspection Ears, Nose, Throat Exam: normal ENT inspection, pharynx normal, moist mucous membranes Neck Exam: normal inspection, full range of motion Respiratory Exam: normal breath sounds, lungs clear, No respiratory distress Cardiovascular Exam: regular rate/rhythm, normal heart sounds, normal peripheral pulses Gastrointestinal/Abdomen Exam: soft, normal bowel sounds, No tenderness, No mass Male Genitalia Exam: normal genitalia Back Exam: normal inspection, normal range of motion, No CVA tenderness, No vertebral tenderness Extremity Exam: normal inspection, normal range of motion, pelvis stable Neurologic Exam: alert, oriented x 3, cooperative, normal mood/affect, sensation nml, No motor deficits Skin Exam: normal color, warm, dry, No rash Lymphatic Exam: No adenopathy SpO2 Interpretation: normal SpO2: 95 O2 Delivery: Room Air - Course Nursing assessment & vital signs reviewed: Yes EKG Interpreted by Me: RATE (68 ), Sinus Rhythm, NORMAL AXIS, NORMAL INTERVALS, Left Bundle Branch Block (Chronic left bundle branch block) Ordered Tests: Active Orders 24 hr Category Date Time Status Wind Energy Engineer STAT Care 02/13/25 16:32 Active EKG-ER Only STAT Care 02/13/25 17:07 Active IV Insertion STAT Care 02/13/25 16:32 Active Pulse Oximetry (ED) STAT Care 02/13/25 16:32 Active CBC W DIFF Stat Lab 02/13/25 16:58 Completed CMP Stat Lab 02/13/25 16:58 Completed TROPONIN Q4H Lab 02/13/25 16:58 Completed TROPONIN Q4H Lab 02/13/25 20:45 Ordered TROPONIN Q4H Lab 02/14/25 00:45 Ordered UA W/RFX UR CULTURE Stat Lab 02/13/25 16:32 Ordered Transfer Order Routine Transfer 02/13/25 Ordered Medication Summary Generic Name Dose Route Start Last Admin Trade Name Freq PRN Reason Stop Dose Admin Sodium Chloride 1,000 mls @ 100 mls/hr 02/13/25 16:45 02/13/25 17:53 Sodium Chloride 0.9% 1000 Ml IV 03/15/25 16:44 100 mls/hr .Q10H ZARIA Administration Lab/Rad Data: Laboratory Result Diagrams 02/13/25 16:58 02/13/25 16:58 Laboratory Results 02/13/25 02/13/25 02/13/25 Range/Units 16:58 16:58 16:58 WBC 6.1 (4.23-9.07) x10^3/uL RBC 3.64 L (4.63-6.08) x10^6/uL Hgb 10.8 L (13.7-17.5) g/dL Hct 33.2 L (40.1-51.0) % MCV 91.2 (79.0-92.2) fL MCH 29.7 (25.7-32.2) pg MCHC 32.5 (32.3-36.5) g/dL RDW 14.5 H (11.6-14.4) % Plt Count 157 L (163-337) x10^3/uL MPV 12.1 (9.4-12.4) fL Gran % 83.5 H (34.0-67.9) % Immature Gran % (Auto) 0.2 (0.001-0.429) % Nucleat RBC Rel Count 0.0 (0.00-0.2) % Eos # (Auto) 0.06 (0.04-0.54) x10^3/uL Immature Gran # (Auto) 0.01 (0.001-0.031) x10^3u/L Absolute Lymphs (auto) 0.63 L (1.32-3.57) x10^3/uL Absolute Monos (auto) 0.28 L (0.30-0.82) x10^3/uL Absolute Nucleated RBC 0.00 (0.00-0.012) x10^3u/L Lymphocytes % 10.4 L (21.8-53.1) % Monocytes % 4.6 L (5.3-12.2) % Eosinophils % 1.0 (0.8-7.0) % Basophils % 0.3 (0.2-1.2) % Absolute Granulocytes 5.05 (1.78-5.38) x10^3/uL Basophils # 0.02 (0.01-0.08) x10^3/uL Sodium 141 (135-145) mmol/L Potassium 4.2 (3.5-5.1) mmol/L Chloride 107 (98-107) mmol/L Carbon Dioxide 19 L (22-30) mmol/L Anion Gap 18.7 H (5-15) MEQ/L BUN 60 H (9-20) mg/dL Creatinine 2.72 H (0.66-1.25) mg/dL Estimated GFR 24.7 ML/MIN Glucose 203 H (74-106) mg/dL Calcium 9.2 (8.4-10.2) mg/dL Total Bilirubin 0.60 (0.2-1.3) mg/dL AST 23 (17-59) U/L ALT 17 (0-50) U/L Alkaline Phosphatase 104 (38-126) U/L Troponin I 0.017 (0.000-0.033) ng/mL Serum Total Protein 6.2 L (6.3-8.2) g/dL Albumin 4.0 (3.5-5.0) g/dL - Progress Progress: improved Progress Note: 69-year-old male with known cholelithiasis history of CHF and chronic renal sufficiency presents to our ED for evaluation of ongoing nausea and right upper quadrant pain. Patient states that he is supposed to have a cholecystectomy. However in light of patient's kidney and heart issues patient was advised to follow-up with his signal repairer and charge entry specialist for clearance. Patient states over the past several weeks his nausea and pain have gotten worse. Laboratory workup reveals acute injury which is likely secondary to decreased oral intake because of ongoing pain and nausea. Patient states his general surgeon would be either Dr. Brennan Jacobson or Victor Hugo Jacobson. I contacted the [facility] group. I spoke to Dr. Snow at 5:48 PM. He advised hospitalization for correction of acute renal injury. If acute renal injury is corrected there is a possibility patient may be a candidate for cholecystectomy this coming . I spoke to Dr. Pro at 5:[address] Pro accepts admission to observation. Plan of care discussed with patient. He agrees to admission at [facility] for further evaluation and treatment. Portions of this note were created with voice recognition technology. There may be grammatical, spelling, punctuation or sound alike errors Complexity of problem addressed is moderate acute complicated. No critical care time. Complexity of data reviewed and analyzed is extensive. Test ordered test reviewed results analyzed and correlated clinically with history and physical exam. Risk of complication and or risk of morbidity/mortality of patient management is high. Patient requires hospitalization for further evaluation and treatment. Vital stable. Time spent admit patient is approximately 20 minutes. Plan of care established for shared decision making. No social determinants of health present to impede follow-up. Portions of this note were created with voice recognition technology. There may be grammatical, spelling, punctuation or sound alike errors 02/13/25 18:07 02/13/25 18:09 Counseled pt/family regarding: diagnosis, need for follow-up - Departure Departure Disposition: Home Clinical Impression: Acute renal injury, Dehydration, Normocytic anemia Condition: Stable Critical Care Time: No Referrals: NICCI CLAROS MD [Primary Care Provider, [facility]] - Follow up/PCP as directed
[2025-02-13 17:13] LABS: ANION GAP 18.7 MEQ/L (5-15); BILIRUBIN,TOTAL 0.6 mg/dL (0.2-1.3); Calcium 9.2 mg/dL (8.4-10.2); Creatinine 1 2.72 mg/dL (0.66-1.25); EST GLOMERULAR FILTRATION RATE 24.7 ML/MIN; Potassium 4.2 mmol/L (3.5-5.1); Total Protein 6.2 g/dL (6.3-8.2)
[2025-02-13] MEDS ORDERED: Sodium Chloride 0.9% 1000 ML 1,000 ML ONE (17:52)
[2025-02-13] MEDS: Sodium Chloride 0.9% 1000 ML 1,000 ML IV SCH ×2 (17:53→22:04)
[2025-02-13] MEDS ORDERED: Docusate Sodium 100 MG PO PRN (19:22)
[2025-02-13] MEDS ORDERED: Zofran 4 MG/2 ML VIAL IV PRN (19:22)
[2025-02-13 19:53] LABS: Appearance Clear (Clear); Bacteria None Seen /HPF (None Seen); Bilirubin Negative (Negative); Blood Negative (Negative); Epithelial Cells None Seen /HPF (None Seen); Glucose, Urine Negative (Negative); Ketones Negative (Negative); Leukocyte Esterase Negative (Negative); Nitrite Negative (Negative); Ph 5.5 (4.6-8.0); Protein,Urine Dip 300 (Negative); RBC 0-2 /HPF (0-5); Specific Gravity 1.015 (1.005-1.030); WBC 0-2 /HPF (0-5)
--- NOTE | 2025-02-13 19:57 | PCM.HP ---
History of Present Illness - Chief Complaint Chief Complaint: dehydration, MOOKIE, Cholelithiasis, Biliary colic Date: 02/13/25 History of Present Illness: is a 69 year old male with a history of hyperlipidemia and diabetes, CKD, and recent gallbladder disease (evaluated by Dr. Jacobson as an outpatient with potential plans for cholecystectomy) who presented to the ED for evaluation of acute onset nausea and right upper quadrant pain. Symptoms have since resol ed. Patient currently asymptomatic without further pain. He denied trauma, chest pain, vomiting, and diaphoresis. In the ED, the patient was noted to have MOOKIE. Surgery professional development director (Dr. Snow) was contacted with recommendation for MOOKIE treatment and if improved, potential cholecystectomy on . - Review of Systems Constitutional: No Symptoms Eyes: No Symptoms Ears, Nose, & Throat: No Symptoms Respiratory: No Symptoms Cardiac: No Symptoms Abdominal/Gastrointestinal: Abdominal Pain, Nausea Genitourinary Symptoms: No Symptoms Musculoskeletal: No Symptoms Skin: No Symptoms Neurological: No Symptoms Psychological: No Symptoms Endocrine: No Symptoms Hematologic/Lymphatic: No Symptoms Immunological/Allergic: No Symptoms All Other Systems: Reviewed and Negative Medications & Allergies Home Medications: Home Medication List Amlodipine Besylate 5 mg [Norvasc 5 mg] 5 mg PO DAILY 30 Days #30 tablet 05/09/24 [Rx Confirmed 02/13/25] Aspirin EC 81 mg [Ecotrin 81 mg] 81 mg PO DAILY 30 Days #30 tablet 05/09/24 [Rx Confirmed 02/13/25] Metoprolol Succinate 50 mg [Toprol Xl 50 MG] 50 mg PO DAILY 30 Days #30 tablet 05/09/24 [Rx Confirmed 02/13/25] Simvastatin 10 mg [Zocor 10MG] 10 mg PO DAILY 30 Days #30 tablet 05/09/24 [Rx Confirmed 02/13/25] Topiramate 25 mg [Topamax 25 MG] 50 mg PO DAILY 30 Days #60 cap 05/09/24 [Rx Confirmed 02/13/25] Ezetimibe 10 mg [Zetia 10 MG] 10 mg PO DAILY 10/18/24 [History Confirmed 02/13/25] Isosorbide Mononitrate 30 mg PO DAILY 10/19/24 [History Confirmed 02/13/25] Metformin HCl 500 mg [Glucophage 500 MG] 500 mg PO BIDWM 10/19/24 [History Confirmed 02/13/25] PANTOPRAZOLE 40 mg Tablet [Protonix 40MG Tablet] 40 mg PO BID 10/19/24 [History Confirmed 02/13/25] Potassium Chloride 20 meq PO DAILY 10/19/24 [History Confirmed 02/13/25] allopurinoL [Zyloprim] 200 mg PO DAILY 10/19/24 [History Confirmed 02/13/25] Clopidogrel Bisulfate [Plavix] 75 mg PO DAILY 02/13/25 [History Confirmed 02/13/25] Torsemide 20 mg [Demadex 20 mg] 20 mg PO BID 02/13/25 [History Confirmed 02/13/25] Allergies/Adverse Reactions: Allergies Allergy/AdvReac Type Severity Reaction Status Date / Time gabapentin AdvReac Verified 02/13/25 17:09 - Past Medical History Past Medical History: Yes Neurological History: No Pertinent History ENT History: No Pertinent History Cardiac History: Angina, Congestive Heart Failure, Coronary Artery Disease, High Cholesterol, Hypertension, Myocardial Infarction ([place]) Respiratory History: COPD, Pulmonary Embolism Endocrine Medical History: Diabetes Type II Musculoskelatal History: Osteoarthritis GI Medical History: No Pertinent History History: No Pertinent History Pyscho-Social History: Depression Male Reproductive Disorders: No Pertinent History Comment: fractured ribs, anemia, gout - Past Surgical History Past Surgical History: Yes Neuro Surgical History: No Pertinent History Cardiac History: CABG, Cardiac Catheterization, Cardiac Stent, Other Respiratory Surgery: Chest Surgery GI Surgical History: No Pertinent History Genitourinary Surgical Hx: No Pertinent History Musculskeletal Surgical Hx: Orthopedic Surgery Male Surgical History: No Pertinent History Other Surgical History: umbilical, triple bypass, L shoulder. polyp removal, right 4th/5th toe amputation Significant Family History: no pertinent family hx - Social History Smoking Status: Current some day smoker How long have you smoked: 45 years Exposure to second hand smoke: Yes Alcohol: None Drug Use: none - Social Determinants of Health Will the patient participate in the screening: Yes Do you worry about a steady place to live?: No Do you have any problems with any of the following?: Unsafe yun/stairs In the past 12 months,have you had to go without utilities?: Yes Have you or anyone in your house had to go without enough: No Transportation Issues: No Has anyone in your support network made you feel unsafe?: No Does the patient want assistance with any of the above?: No Comment: about to move - Physical Exam Vital Signs: Vital Signs - 24 hr Temp Pulse Resp BP BP Pulse Ox 02/13/25 18:16 95 02/13/25 18:00 68 28 H 136/63 98 02/13/25 17:45 71 15 126/59 98 02/13/25 17:30 68 21 118/62 98 02/13/25 17:15 68 20 120/61 96 02/13/25 17:00 67 22 129/72 96 02/13/25 16:45 69 23 98/55 93 L 02/13/25 16:40 98.2 F 70 16 123/61 94 L 02/13/25 16:31 70 28 H 123/61 94 L General Appearance: no apparent distress, alert Neurologic Exam: alert, oriented x 3, cooperative, harness rigger II-XII nml as tested, normal mood/affect, nml cerebellar function Eye Exam: PERRL/EOMI, eyes nml inspection Ears, Nose, Throat Exam: normal ENT inspection Neck Exam: normal inspection, non-tender, supple, full range of motion Respiratory Exam: normal breath sounds, lungs clear, airway intact Cardiovascular Exam: regular rate/rhythm, normal heart sounds Gastrointestinal/Abdomen Exam: soft, normal bowel sounds Back Exam: normal range of motion Extremity Exam: normal inspection, normal range of motion Skin Exam: normal color Results - Labs Lab/Micro Results: Lab Results-Last 24 Hours 02/13/25 02/13/25 02/13/25 Range/Units 16:58 16:58 16:58 WBC 6.1 (4.23-9.07) x10^3/uL RBC 3.64 L (4.63-6.08) x10^6/uL Hgb 10.8 L (13.7-17.5) g/dL Hct 33.2 L (40.1-51.0) % MCV 91.2 (79.0-92.2) fL MCH 29.7 (25.7-32.2) pg MCHC 32.5 (32.3-36.5) g/dL RDW 14.5 H (11.6-14.4) % Plt Count 157 L (163-337) x10^3/uL MPV 12.1 (9.4-12.4) fL Gran % 83.5 H (34.0-67.9) % Immature Gran % (Auto) 0.2 (0.001-0.429) % Nucleat RBC Rel Count 0.0 (0.00-0.2) % Eos # (Auto) 0.06 (0.04-0.54) x10^3/uL Immature Gran # (Auto) 0.01 (0.001-0.031) x10^3u/L Absolute Lymphs (auto) 0.63 L (1.32-3.57) x10^3/uL Absolute Monos (auto) 0.28 L (0.30-0.82) x10^3/uL Absolute Nucleated RBC 0.00 (0.00-0.012) x10^3u/L Lymphocytes % 10.4 L (21.8-53.1) % Monocytes % 4.6 L (5.3-12.2) % Eosinophils % 1.0 (0.8-7.0) % Basophils % 0.3 (0.2-1.2) % Absolute Granulocytes 5.05 (1.78-5.38) x10^3/uL Basophils # 0.02 (0.01-0.08) x10^3/uL Sodium 141 (135-145) mmol/L Potassium 4.2 (3.5-5.1) mmol/L Chloride 107 (98-107) mmol/L Carbon Dioxide 19 L (22-30) mmol/L Anion Gap 18.7 H (5-15) MEQ/L BUN 60 H (9-20) mg/dL Creatinine 2.72 H (0.66-1.25) mg/dL Estimated GFR 24.7 ML/MIN Glucose 203 H (74-106) mg/dL Calcium 9.2 (8.4-10.2) mg/dL Total Bilirubin 0.60 (0.2-1.3) mg/dL AST 23 (17-59) U/L ALT 17 (0-50) U/L Alkaline Phosphatase 104 (38-126) U/L Troponin I 0.017 (0.000-0.033) ng/mL Serum Total Protein 6.2 L (6.3-8.2) g/dL Albumin 4.0 (3.5-5.0) g/dL - Other Procedures and Tests Respiratory Therapy 02/13/25 19:18 Smoking Cessation Education ONCE Assessment/Plan (1) MOOKIE (acute kidney injury) Current Visit: Yes Status: Acute Assessment & Plan: IV fluids. Hold metformin and potassium. Monitor renal function. Had recent appointment scheduled with Dr. Wright but this got canceled; will need to reschedule. Has known CKD. Code(s): N17.9 - ACUTE KIDNEY FAILURE, UNSPECIFIED (2) Gallbladder attack Current Visit: Yes Status: Acute Assessment & Plan: Analgesia and antiemetics prn. Surgery consulted. Dr. Snow is considering cholecystectomy on if MOOKIE improved. IV Unasyn for prophylaxis. Code(s): K82.9 - DISEASE OF GALLBLADDER, UNSPECIFIED (3) DM w/o complication type II Current Visit: No Status: Chronic Assessment & Plan: Hold metformin. Monitor sugars on ISS. Code(s): E11.9 - TYPE 2 DIABETES MELLITUS WITHOUT COMPLICATIONS (4) Hyperlipidemia Current Visit: No Status: Chronic Assessment & Plan: Continue current regimen. Code(s): E78.5 - HYPERLIPIDEMIA, UNSPECIFIED Telemedicine Encounter - Telemedicine Encounter Telemedicine Encounter: "The entirety of this encounter was performed via Telemedicine" This visit was performed using real-time audio and video connection between my location and thepatients locationwith the assistance of a surrogateat the patients location. Written or verbal consent was obtained from the patient/guardian to perform this visit [email or web address] technology. Any patient questions regarding the telemedicine interaction were answered. Please note that this admission required 44 minutes to complete.
[2025-02-13 20:11] LABS: Absolute Neutrophil Ct (ANC) 4.43 x10^3/uL (1.78-5.38); BASOPHIL % 0.2 % (0.2-1.2); Basophil (Absolute #) 0.01 x10^3/uL (0.01-0.08); Eosinophil % 0.9 % (0.8-7.0); Eosinophil (Absolute #) 0.05 x10^3/uL (0.04-0.54); Hemoglobin 10.1 g/dL (13.7-17.5); IMMATURE GRAN # 0.02 x10^3u/L (0.001-0.031); IMMATURE GRAN % 0.4 % (0.001-0.429); Lymphocyte (Absolute #) 0.83 x10^3/uL (1.32-3.57); Lymphocytes % 14.7 % (21.8-53.1); Mean Corpuscular Hgb Concent. 31.6 g/dL (32.3-36.5); Mean Platelet Volume 11.5 fL (9.4-12.4); Monocyte (Absolute #) 0.32 x10^3/uL (0.30-0.82); Monocytes % 5.7 % (5.3-12.2); Neutrophil % 78.1 % (34.0-67.9); Platelet Count 142 x10^3/uL (163-337); Red Blood Count 3.48 x10^6/uL (4.63-6.08); Red Cell Distribution Width 14.6 % (11.6-14.4); White Blood Count 5.7 x10^3/uL (4.23-9.07)
[2025-02-13] MEDS: MORPHINE SULFATE 2 MG INJ IV PRN (22:03)
[2025-02-13] MEDS: Protonix 40MG Tablet PO SCH (22:03)
[2025-02-13] MEDS: HUMALOG SQ PRN (22:03)
[2025-02-13] MEDS: HEPARIN 5000 UNITS/0.5 ML (HIGH RISK MED) SQ SCH (22:03)
[2025-02-14] MEDS: Unasyn 1.5GM Vial*** 1.5 G in Sodium Chloride 0.9% 100 ML IV SCH (01:00)
[2025-02-14 01:38] LABS: Hemoglobin 9.5 g/dL (13.7-17.5); Mean Corpuscular Hemoglobin 29.1 pg (25.7-32.2); Mean Corpuscular Hgb Concent. 31.7 g/dL (32.3-36.5); Mean Platelet Volume 12.1 fL (9.4-12.4); Platelet Count 134 x10^3/uL (163-337); Red Blood Count 3.26 x10^6/uL (4.63-6.08); Red Cell Distribution Width 14.6 % (11.6-14.4); White Blood Count 4.4 x10^3/uL (4.23-9.07)
[2025-02-14] MEDS ORDERED: Sodium Chloride 0.9% 100 ML ONE ×3 (01:46→13:16)
[2025-02-14] MEDS ORDERED: Unasyn 1.5GM Vial ONE ×2 (01:46→05:46)
[2025-02-14 01:50] LABS: ALBUMIN 3.3 g/dL (3.5-5.0); ANION GAP 15.1 MEQ/L (5-15); BILIRUBIN,TOTAL 0.3 mg/dL (0.2-1.3); Calcium 8.9 mg/dL (8.4-10.2); Creatinine 1 2.53 mg/dL (0.66-1.25); EST GLOMERULAR FILTRATION RATE 26.9 ML/MIN; Potassium 3.7 mmol/L (3.5-5.1); Total Protein 5.3 g/dL (6.3-8.2)
[2025-02-14] MEDS: MORPHINE SULFATE 4 MG INJ IV ONE (07:17)
[2025-02-14] MEDS: Zofran 4 MG/2 ML VIAL IV ONE (07:18)
[2025-02-14] MEDS: TOPIRAMATE PO SCH (09:33)
[2025-02-14] MEDS: Acidophilus TABLET PO SCH (09:33)
[2025-02-14] MEDS: NORVASC 5 MG PO SCH (09:34)
[2025-02-14] MEDS: Zocor 10MG PO SCH (09:34)
[2025-02-14] MEDS: ECOTRIN 81 MG PO SCH (09:34)
[2025-02-14] MEDS: Zetia 10 MG PO SCH (09:34)
[2025-02-14] MEDS: ZYLOPRIM 100 MG PO SCH (09:34)
[2025-02-14] MEDS: Toprol Xl 50 MG PO SCH (09:34)
[2025-02-14] MEDS: Imdur 30 MG PO SCH (09:34)
--- NOTE | 2025-02-14 09:47 | PCM.NOTE ---
Date and Time: 02/14/25 0941 Subjective Assessment: A 69-year-old male with a history of hyperlipidemia, type 2 diabetes mellitus, chronic kidney disease (baseline creatinine ~1.70), and recent gallbladder disease (previously evaluated by Dr. Jacobson with plans for possible outpatient cholecystectomy) presented to the emergency department with acute onset of nausea and right upper quadrant abdominal pain. The symptoms have since resolved, and the patient is currently asymptomatic, denying any further abdominal pain, vomiting, chest pain, diaphoresis, or trauma. On presentation, he was found to have an acute on chronic kidney injury, today creatinine of 2.53. Surgery (Dr. Snow) was consulted and recommended supportive treatment for MOOKIE, with potential for cholecystectomy on if renal function improves. IV fluids were initiated, and renal function has shown improvement. Heparin has been held, and sequential compression devices (SCDs) were started for DVT prophylaxis. The patient reports good pain control and has no current concerns. He remains hemodynamically stable and under continued monitoring for renal recovery and surgical planning. - Review of Systems Constitutional: No Fever, No Chills Eyes: No Symptoms Ears, Nose, & Throat: No Symptoms Respiratory: No Cough, No Short Of Breath Cardiac: No Chest Pain, No Edema, No Syncope Abdominal/Gastrointestinal: Abdominal Pain (RUQ with palpation), No Nausea, No Vomiting, No Diarrhea Genitourinary Symptoms: No Dysuria Musculoskeletal: No Back Pain, No Neck Pain Skin: No Rash Neurological: No Dizziness, No Focal Weakness, No Sensory Changes Psychological: No Symptoms Endocrine: No Symptoms Hematologic/Lymphatic: No Symptoms Immunological/Allergic: No Symptoms Objective Exam General Appearance: no apparent distress, alert Neurologic Exam: alert, oriented x 3, cooperative, normal mood/affect, nml cerebellar function, sensation nml, No motor deficits Skin Exam: normal color, warm, dry Eye Exam: PERRL, EOMI, eyes nml inspection Ears, Nose, Throat Exam: normal ENT inspection, pharynx normal, moist mucous membranes Neck Exam: normal inspection, non-tender, supple, full range of motion Respiratory Exam: normal breath sounds, lungs clear, No respiratory distress Cardiovascular Exam: regular rate/rhythm, normal heart sounds Gastrointestinal/Abdomen Exam: soft, tenderness (RUQ), No mass Extremity Exam: normal inspection, normal range of motion Back Exam: normal inspection, normal range of motion, No CVA tenderness, No v ertebral tenderness Male Genitalia Exam: deferred Rectal Exam: deferred Objective Data Vital Signs: Vital Signs - 24 hr Temp Pulse Resp BP BP Pulse Ox 02/14/25 07:41 97.8 F 63 17 138/63 95 02/14/25 03:45 97.8 F 60 20 115/58 96 02/13/25 23:23 97.5 F 66 20 144/74 95 02/13/25 20:29 72 18 97 02/13/25 20:00 97.5 F 68 20 156/72 96 02/13/25 18:16 95 02/13/25 18:00 68 28 H 136/63 98 02/13/25 17:45 71 15 126/59 98 02/13/25 17:30 68 21 118/62 98 02/13/25 17:15 68 20 120/61 96 02/13/25 17:00 67 22 129/72 96 02/13/25 16:45 69 23 98/55 93 L 02/13/25 16:40 98.2 F 70 16 123/61 94 L 02/13/25 16:31 70 28 H 123/61 94 L Pain Assessment - Last Documented Pain Intensity 5 Pain Scale Used 0-10 Pain Scale Intake and Output: Intake & Output 02/11/25 02/12/25 02/13/25 02/14/25 11:59 11:59 11:59 11:59 Intake Total 2303 Output Total 1300 Balance 1003 Weight 101.2 kg Lab Results: Lab Results-Last 24 Hours 02/13/25 02/13/25 02/13/25 Range/Units 16:32 16:58 16:58 WBC 6.1 (4.23-9.07) x10^3/uL RBC 3.64 L (4.63-6.08) x10^6/uL Hgb 10.8 L (13.7-17.5) g/dL Hct 33.2 L (40.1-51.0) % MCV 91.2 (79.0-92.2) fL MCH 29.7 (25.7-32.2) pg MCHC 32.5 (32.3-36.5) g/dL RDW 14.5 H (11.6-14.4) % Plt Count 157 L (163-337) x10^3/uL MPV 12.1 (9.4-12.4) fL Gran % 83.5 H (34.0-67.9) % Immature Gran % (Auto) 0.2 (0.001-0.429) % Nucleat RBC Rel Count 0.0 (0.00-0.2) % Eos # (Auto) 0.06 (0.04-0.54) x10^3/uL Immature Gran # (Auto) 0.01 (0.001-0.031) x10^3u/L Absolute Lymphs (auto) 0.63 L (1.32-3.57) x10^3/uL Absolute Monos (auto) 0.28 L (0.30-0.82) x10^3/uL Absolute Nucleated RBC 0.00 (0.00-0.012) x10^3u/L Lymphocytes % 10.4 L (21.8-53.1) % Monocytes % 4.6 L (5.3-12.2) % Eosinophils % 1.0 (0.8-7.0) % Basophils % 0.3 (0.2-1.2) % Absolute Granulocytes 5.05 (1.78-5.38) x10^3/uL Basophils # 0.02 (0.01-0.08) x10^3/uL Sodium 141 (135-145) mmol/L Potassium 4.2 (3.5-5.1) mmol/L Chloride 107 (98-107) mmol/L Carbon Dioxide 19 L (22-30) mmol/L Anion Gap 18.7 H (5-15) MEQ/L BUN 60 H (9-20) mg/dL Creatinine 2.72 H (0.66-1.25) mg/dL Estimated GFR 24.7 ML/MIN Glucose 203 H (74-106) mg/dL POC Glucometer (74 to 106) mg/dL Hemoglobin A1c (4.5-6.0) % Calcium 9.2 (8.4-10.2) mg/dL Total Bilirubin 0.60 (0.2-1.3) mg/dL AST 23 (17-59) U/L ALT 17 (0-50) U/L Alkaline Phosphatase 104 (38-126) U/L Troponin I (0.000-0.033) ng/mL Serum Total Protein 6.2 L (6.3-8.2) g/dL Albumin 4.0 (3.5-5.0) g/dL Urine Color Yellow (Yellow) Urine Appearance Clear (Clear) Urine pH 5.5 (4.6-8.0) Ur Specific [place] 1.015 (1.005-1.030) Urine Protein 300 A (Negative) Urine Glucose (UA) Negative (Negative) mg/dL Urine Ketones Negative (Negative) Urine Blood Negative (Negative) Urine Nitrite Negative (Negative) Urine Bilirubin Negative (Negative) Urine Urobilinogen 1.0 A (0.2) mg/dL Ur Leukocyte Esterase Negative (Negative) U Hyaline Cast (Auto) 3-5 A (0-2) /LPF Urine Microscopic RBC 0-2 (0-5) /HPF Urine Microscopic WBC 0-2 (0-5) /HPF Ur Epithelial Cells None Seen (None Seen) /HPF Urine Bacteria None Seen (None Seen) /HPF Urine Culture Reflexed NO (NO) 02/13/25 02/13/25 02/13/25 Range/Units 16:58 20:05 20:05 WBC 5.7 (4.23-9.07) x10^3/uL RBC 3.48 L (4.63-6.08) x10^6/uL Hgb 10.1 L (13.7-17.5) g/dL Hct 32.0 L (40.1-51.0) % MCV 92.0 (79.0-92.2) fL MCH 29.0 (25.7-32.2) pg MCHC 31.6 L (32.3-36.5) g/dL RDW 14.6 H (11.6-14.4) % Plt Count 142 L (163-337) x10^3/uL MPV 11.5 (9.4-12.4) fL Gran % 78.1 H (34.0-67.9) % Immature Gran % (Auto) 0.4 (0.001-0.429) % Nucleat RBC Rel Count 0.0 (0.00-0.2) % Eos # (Auto) 0.05 (0.04-0.54) x10^3/uL Immature Gran # (Auto) 0.02 (0.001-0.031) x10^3u/L Absolute Lymphs (auto) 0.83 L (1.32-3.57) x10^3/uL Absolute Monos (auto) 0.32 (0.30-0.82) x10^3/uL Absolute Nucleated RBC 0.00 (0.00-0.012) x10^3u/L Lymphocytes % 14.7 L (21.8-53.1) % Monocytes % 5.7 (5.3-12.2) % Eosinophils % 0.9 (0.8-7.0) % Basophils % 0.2 (0.2-1.2) % Absolute Granulocytes 4.43 (1.78-5.38) x10^3/uL Basophils # 0.01 (0.01-0.08) x10^3/uL Sodium (135-145) mmol/L Potassium (3.5-5.1) mmol/L Chloride (98-107) mmol/L Carbon Dioxide (22-30) mmol/L Anion Gap (5-15) MEQ/L BUN (9-20) mg/dL Creatinine (0.66-1.25) mg/dL Estimated GFR ML/MIN Glucose (74-106) mg/dL POC Glucometer (74 to 106) mg/dL Hemoglobin A1c (4.5-6.0) % Calcium (8.4-10.2) mg/dL Total Bilirubin (0.2-1.3) mg/dL AST (17-59) U/L ALT (0-50) U/L Alkaline Phosphatase (38-126) U/L Troponin I 0.017 0.014 (0.000-0.033) ng/mL Serum Total Protein (6.3-8.2) g/dL Albumin (3.5-5.0) g/dL Urine Color (Yellow) Urine Appearance (Clear) Urine pH (4.6-8.0) Ur Specific [place] (1.005-1.030) Urine Protein (Negative) Urine Glucose (UA) (Negative) mg/dL Urine Ketones (Negative) Urine Blood (Negative) Urine Nitrite (Negative) Urine Bilirubin (Negative) Urine Urobilinogen (0.2) mg/dL Ur Leukocyte Esterase (Negative) U Hyaline Cast (Auto) (0-2) /LPF Urine Microscopic RBC (0-5) /HPF Urine Microscopic WBC (0-5) /HPF Ur Epithelial Cells (None Seen) /HPF Urine Bacteria (None Seen) /HPF Urine Culture Reflexed (NO) 02/13/25 02/14/25 02/14/25 Range/Units 21:40 01:20 01:20 WBC (4.23-9.07) x10^3/uL RBC (4.63-6.08) x10^6/uL Hgb (13.7-17.5) g/dL Hct (40.1-51.0) % MCV (79.0-92.2) fL MCH (25.7-32.2) pg MCHC (32.3-36.5) g/dL RDW (11.6-14.4) % Plt Count (163-337) x10^3/uL MPV (9.4-12.4) fL Gran % (34.0-67.9) % Immature Gran % (Auto) (0.001-0.429) % Nucleat RBC Rel Count (0.00-0.2) % Eos # (Auto) (0.04-0.54) x10^3/uL Immature Gran # (Auto) (0.001-0.031) x10^3u/L Absolute Lymphs (auto) (1.32-3.57) x10^3/uL Absolute Monos (auto) (0.30-0.82) x10^3/uL Absolute Nucleated RBC (0.00-0.012) x10^3u/L Lymphocytes % (21.8-53.1) % Monocytes % (5.3-12.2) % Eosinophils % (0.8-7.0) % Basophils % (0.2-1.2) % Absolute Granulocytes (1.78-5.38) x10^3/uL Basophils # (0.01-0.08) x10^3/uL Sodium 142 (135-145) mmol/L Potassium 3.7 (3.5-5.1) mmol/L Chloride 110 H (98-107) mmol/L Carbon Dioxide 21 L (22-30) mmol/L Anion Gap 15.1 H (5-15) MEQ/L BUN 56 H (9-20) mg/dL Creatinine 2.53 H (0.66-1.25) mg/dL Estimated GFR 26.9 ML/MIN Glucose 184 H (74-106) mg/dL POC Glucometer 295 H (74 to 106) mg/dL Hemoglobin A1c (4.5-6.0) % Calcium 8.9 (8.4-10.2) mg/dL Total Bilirubin 0.30 (0.2-1.3) mg/dL AST 20 (17-59) U/L ALT 15 (0-50) U/L Alkaline Phosphatase 83 (38-126) U/L Troponin I 0.018 (0.000-0.033) ng/mL Serum Total Protein 5.3 L (6.3-8.2) g/dL Albumin 3.3 L (3.5-5.0) g/dL Urine Color (Yellow) Urine Appearance (Clear) Urine pH (4.6-8.0) Ur Specific [place] (1.005-1.030) Urine Protein (Negative) Urine Glucose (UA) (Negative) mg/dL Urine Ketones (Negative) Urine Blood (Negative) Urine Nitrite (Negative) Urine Bilirubin (Negative) Urine Urobilinogen (0.2) mg/dL Ur Leukocyte Esterase (Negative) U Hyaline Cast (Auto) (0-2) /LPF Urine Microscopic RBC (0-5) /HPF Urine Microscopic WBC (0-5) /HPF Ur Epithelial Cells (None Seen) /HPF Urine Bacteria (None Seen) /HPF Urine Culture Reflexed (NO) 02/14/25 02/14/25 02/14/25 Range/Units 01:20 01:20 07:35 WBC 4.4 (4.23-9.07) x10^3/uL RBC 3.26 L (4.63-6.08) x10^6/uL Hgb 9.5 L (13.7-17.5) g/dL Hct 30.0 L (40.1-51.0) % MCV 92.0 (79.0-92.2) fL MCH 29.1 (25.7-32.2) pg MCHC 31.7 L (32.3-36.5) g/dL RDW 14.6 H (11.6-14.4) % Plt Count 134 L (163-337) x10^3/uL MPV 12.1 (9.4-12.4) fL Gran % (34.0-67.9) % Immature Gran % (Auto) (0.001-0.429) % Nucleat RBC Rel Count (0.00-0.2) % Eos # (Auto) (0.04-0.54) x10^3/uL Immature Gran # (Auto) (0.001-0.031) x10^3u/L Absolute Lymphs (auto) (1.32-3.57) x10^3/uL Absolute Monos (auto) (0.30-0.82) x10^3/uL Absolute Nucleated RBC (0.00-0.012) x10^3u/L Lymphocytes % (21.8-53.1) % Monocytes % (5.3-12.2) % Eosinophils % (0.8-7.0) % Basophils % (0.2-1.2) % Absolute Granulocytes (1.78-5.38) x10^3/uL Basophils # (0.01-0.08) x10^3/uL Sodium (135-145) mmol/L Potassium (3.5-5.1) mmol/L Chloride (98-107) mmol/L Carbon Dioxide (22-30) mmol/L Anion Gap (5-15) MEQ/L BUN (9-20) mg/dL Creatinine (0.66-1.25) mg/dL Estimated GFR ML/MIN Glucose (74-106) mg/dL POC Glucometer 96 (74 to 106) mg/dL Hemoglobin A1c 7.86 H (4.5-6.0) % Calcium (8.4-10.2) mg/dL Total Bilirubin (0.2-1.3) mg/dL AST (17-59) U/L ALT (0-50) U/L Alkaline Phosphatase (38-126) U/L Troponin I (0.000-0.033) ng/mL Serum Total Protein (6.3-8.2) g/dL Albumin (3.5-5.0) g/dL Urine Color (Yellow) Urine Appearance (Clear) Urine pH (4.6-8.0) Ur Specific [place] (1.005-1.030) Urine Protein (Negative) Urine Glucose (UA) (Negative) mg/dL Urine Ketones (Negative) Urine Blood (Negative) Urine Nitrite (Negative) Urine Bilirubin (Negative) Urine Urobilinogen (0.2) mg/dL Ur Leukocyte Esterase (Negative) U Hyaline Cast (Auto) (0-2) /LPF Urine Microscopic RBC (0-5) /HPF Urine Microscopic WBC (0-5) /HPF Ur Epithelial Cells (None Seen) /HPF Urine Bacteria (None Seen) /HPF Urine Culture Reflexed (NO) Medications: Medications Generic Name Dose Route Start Last Admin Trade Name Freq PRN Reason Stop Dose Admin Acetaminophen 325 mg 02/13/25 19:22 Acetaminophen 325 Mg Tablet PO 03/15/25 19:21 Q4H PRN PRN PAIN, FEVER, HEADACHE Allopurinol 200 mg 02/14/25 10:00 02/14/25 09:34 Allopurinol 100 Mg Tablet PO 03/16/25 09:59 200 mg DAILY ZARIA Administration Amlodipine Besylate 5 mg 02/14/25 10:00 02/14/25 09:34 Amlodipine Besylate 5 Mg Tablet PO 03/16/25 09:59 5 mg DAILY ZARIA Administration Aspirin 81 mg 02/14/25 10:00 02/14/25 09:34 Aspirin 81 Mg Tablet.Ec PO 03/16/25 09:59 81 mg DAILY ZARIA Administration Docusate Sodium 100 mg 02/13/25 19:22 Docusate Sodium 100 Mg Capsule PO 03/15/25 19:21 BIDPRN PRN CONSTIPATION Ezetimibe 10 mg 02/14/25 10:00 02/14/25 09:34 Ezetimibe 10 Mg Tab PO 03/16/25 09:59 10 mg DAILY ZARIA Administration Sodium Chloride 1,000 mls @ 100 mls/hr 02/13/25 19:30 02/14/25 06:03 Sodium Chloride 0.9% 1000 Ml IV 03/15/25 19:29 100 mls/hr .Q10H ZARIA Administration Ampicillin Sodium/Sulbactam 100 mls @ 200 mls/hr 02/14/25 00:00 02/14/25 06:02 Sodium 1.5 g/ Sodium Chloride IV 02/17/25 00:00 200 mls/hr Q6HT ZARIA Administration Insulin Human Lispro 0 unit 02/13/25 19:22 02/13/25 22:03 Insulin Lispro 1 Unit SQ 03/15/25 19:21 4 unit UD PRN Administration HYPERGLYCEMIA Isosorbide Mononitrate 30 mg 02/14/25 10:00 02/14/25 09:34 Isosorbide Mononitrate 30 Mg Tab PO 03/16/25 09:59 30 mg DAILY ZARIA Administration Lactobacillus Acidophilus 1 tab 02/14/25 10:00 02/14/25 09:33 Lactobacillus Acidophilus 1 Tab Tablet PO 03/16/25 09:59 1 tab DAILY ZARIA Administration Metoprolol Succinate 50 mg 02/14/25 10:00 02/14/25 09:34 Metoprolol Succinate 50 Mg Tablet.Sa PO 03/16/25 09:59 50 mg DAILY ZARIA Administration Morphine Sulfate 1 mg 02/13/25 19:28 02/13/25 22:03 Morphine Sulfate 2 Mg/Ml Inj IV 02/18/25 19:27 1 mg Q4H PRN PRN Administration SEVERE PAIN Ondansetron HCl 4 mg 02/13/25 19:22 Ondansetron Hcl 4 Mg/2 Ml Vial IV 03/15/25 19:21 Q6H PRN PRN NAUSEA/VOMITING Pantoprazole Sodium 40 mg 02/13/25 22:00 02/14/25 09:33 Protonix (Pantoprazole) 40 Mg Tablet PO 03/15/25 21:59 40 mg BID ZARIA Administration Simvastatin 10 mg 02/14/25 10:00 02/14/25 09:34 Simvastatin 10 Mg Tablet PO 03/16/25 09:59 10 mg DAILY ZARIA Administration Topiramate 50 mg 02/14/25 10:00 02/14/25 09:33 Topiramate 50 Mg Tablet PO 03/16/25 09:59 50 mg DAILY ZARIA Administration Discontinued Medications Generic Name Dose Route Start Last Admin Trade Name Freq PRN Reason Stop Dose Admin Ampicillin Sodium/Sulbactam Sodium Confirm 02/14/25 01:46 Ampicillin Sodium/Sulbactam Na 1.5 G/Vial Vial Administered 02/14/25 01:47 Dose 1.5 g .ROUTE .STK-MED ONE Ampicillin Sodium/Sulbactam Sodium Confirm 02/14/25 05:46 Ampicillin Sodium/Sulbactam Na 1.5 G/Vial Vial Administered 02/14/25 05:47 Dose 1.5 g .ROUTE .STK-MED ONE Heparin Sodium (Beef Lung) 5,000 unit 02/13/25 22:00 02/13/25 22:03 Heparin 5000 Units/0.5 Ml 5,000 Unit/0.5 Ml Syr SQ 03/15/25 21:59 5,000 unit BID ZARIA Administration Sodium Chloride 1,000 mls @ 100 mls/hr 02/13/25 16:45 02/13/25 17:53 Sodium Chloride 0.9% 1000 Ml IV 03/15/25 16:44 100 mls/hr .Q10H ZARIA Administration Sodium Chloride Confirm 02/13/25 17:52 Sodium Chloride 0.9% 1000 Ml Administered 02/13/25 17:53 Dose 1,000 mls @ ud .ROUTE .STK-MED ONE Sodium Chloride Confirm 02/14/25 01:46 Sodium Chloride 0.9% Administered 02/14/25 01:47 Dose 100 mls @ ud .ROUTE .STK-MED ONE Sodium Chloride Confirm 02/14/25 05:46 Sodium Chloride 0.9% Administered 02/14/25 05:47 Dose 100 mls @ ud .ROUTE .STK-MED ONE Morphine Sulfate 4 mg 02/13/25 18:08 02/14/25 07:17 Morphine Sulfate 4 Mg/Ml Injection IV 02/13/25 18:09 4 mg STAT ONE Administration Ondansetron HCl 4 mg 02/13/25 18:08 02/14/25 07:18 Ondansetron Hcl 4 Mg/2 Ml Vial IV 02/13/25 18:09 4 mg STAT ONE Administration Assessment/Plan (1) Cholelithiasis Current Visit: Yes Status: Acute Assessment & Plan: - Analgesia and antiemetics prn. - Surgery consulted in ER- Dr. Snow is considering cholecystectomy on if MOOKIE improved. - IV Unasyn for prophylaxis - CBC, CMP reviewed (2) [id number] renal failure Current Visit: Yes Status: Acute Assessment & Plan: - IV fluids. - Hold metformin and potassium. - Monitor renal function. - Had recent appointment scheduled with Dr. Wright but this got canceled; will need to reschedule. - Has known CKD. - Creat 2.53 today - baseline 1.70 Code(s): N17.9 - ACUTE KIDNEY FAILURE, UNSPECIFIED; N18.9 - CHRONIC KIDNEY DISEASE, UNSPECIFIED (3) Nausea and vomiting Current Visit: No Status: Acute Code(s): R11.2 - NAUSEA WITH VOMITING, UNSPECIFIED (4) Diabetes mellitus Current Visit: No Status: Chronic Qualifiers: Diabetes mellitus type: type 2 Diabetes mellitus terminal make up operator insulin use: without terminal make up operator use Assessment & Plan: - A1C 7.86- controlled < 8 - Accuchecks ac/hs - Humalog s/s - Metformin held Code(s): E11.9 - TYPE 2 DIABETES MELLITUS WITHOUT COMPLICATIONS (5) HLD (hyperlipidemia) Current Visit: No Status: Chronic Assessment & Plan: - continue statin Code(s): E78.5 - HYPERLIPIDEMIA, UNSPECIFIED (6) HTN (hypertension) Current Visit: No Status: Chronic Assessment & Plan: - Continue home meds - BP stable VTE: SCD's PPI: Protonix Next of KIN: Child- Simeon Marshall [phone] D/C plan: 1-2 days Code status: Full Code(s): I10 - ESSENTIAL (PRIMARY) HYPERTENSION
[2025-02-14] MEDS ORDERED: ISOSORBIDE MONONITRATE 10 MG PO SCH (10:00)
[2025-02-14] MEDS ORDERED: NON-FORMULARY ITEM (Topiramate 25 Mg*** [Topamax 25 Mg***] 25 MG Capsule) PO SCH (10:00)
[2025-02-14] MEDS: TYLENOL 325 MG PO PRN (18:22)
[2025-02-15 04:48] LABS: Hemoglobin 9.1 g/dL (13.7-17.5); Mean Cell Volume 93.5 fL (79.0-92.2); Mean Corpuscular Hemoglobin 29.4 pg (25.7-32.2); Mean Corpuscular Hgb Concent. 31.4 g/dL (32.3-36.5); Mean Platelet Volume 12.1 fL (9.4-12.4); Platelet Count 122 x10^3/uL (163-337); Red Cell Distribution Width 14.6 % (11.6-14.4); White Blood Count 4.5 x10^3/uL (4.23-9.07)
[2025-02-15 05:30] LABS: ANION GAP 12.6 MEQ/L (5-15); BILIRUBIN,TOTAL 0.2 mg/dL (0.2-1.3); Calcium 8.5 mg/dL (8.4-10.2); Creatinine 1 2.22 mg/dL (0.66-1.25); EST GLOMERULAR FILTRATION RATE 31.5 ML/MIN; Potassium 3.7 mmol/L (3.5-5.1); Total Protein 5.2 g/dL (6.3-8.2)
--- NOTE | 2025-02-15 09:31 | PCM.NOTE ---
Date and Time: 02/15/25922 Subjective Assessment: 02/14/25 A 69-year-old male with a history of hyperlipidemia, type 2 diabetes mellitus, chronic kidney disease (baseline creatinine ~1.70), and recent gallbladder disease (previously evaluated by Dr. Jacobson with plans for possible outpatient cholecystectomy) presented to the emergency department with acute onset of nausea and right upper quadrant abdominal pain. The symptoms have since resolved, and the patient is currently asymptomatic, denying any further abdominal pain, vomiting, chest pain, diaphoresis, or trauma. On presentation, he was found to have an acute on chronic kidney injury, today creatinine of 2.53. Surgery (Dr. Snow) was consulted and recommended supportive treatment for MOOKIE, with potential for cholecystectomy on if renal function improves. IV fluids were initiated, and renal function has shown improvement. Heparin has been held, and sequential compression devices (SCDs) were started for DVT prophylaxis. The patient reports good pain control and has no current concerns. He remains hemodynamically stable and under continued monitoring for renal recovery and surgical planning. 02/15/25 The patient is resting in bed. There were no notes from the surgical team in the chart, so the nurse, PAULA Irvin, was asked to contact Surgery this morning for an update on the plan of care. The patient remains NPO in anticipation of surgery. The RN spoke with Dr. Sepulveda, and per the surgical team, the patient requires medical clearance from both cardiology and nephrology prior to proceeding with surgery. These evaluations were initially planned as outpatient but were not completed. Cardiology and nephrology have now been consulted for inpatient clearance. If cleared, the patient may proceed with surgery later today or tomorrow. Renal function is improving, with creatinine down to 2.22 today. The patient continues to report right upper quadrant pain, rated 8/10 this morning, for which nursing administered pain medication. He currently denies any additional concerns. - Review of Systems Constitutional: No Fever, No Chills Eyes: No Symptoms Ears, Nose, & Throat: No Symptoms Respiratory: No Cough, No Short Of Breath Cardiac: No Chest Pain, No Edema, No Syncope Abdominal/Gastrointestinal: Abdominal Pain (RUQ), No Nausea, No Vomiting, No Diarrhea Genitourinary Symptoms: No Dysuria Musculoskeletal: No Back Pain, No Neck Pain Skin: No Rash Neurological: No Dizziness, No Focal Weakness, No Sensory Changes Psychological: No Symptoms Endocrine: No Symptoms Hematologic/Lymphatic: No Symptoms Immunological/Allergic: No Symptoms Objective Exam General Appearance: no apparent distress, alert Neurologic Exam: alert, oriented x 3, cooperative, normal mood/affect, nml cerebellar function, sensation nml, No motor deficits Skin Exam: normal color, warm, dry Eye Exam: PERRL, EOMI, eyes nml inspection Ears, Nose, Throat Exam: normal ENT inspection, pharynx normal, moist mucous membranes Neck Exam: normal inspection, non-tender, supple, full range of motion Respiratory Exam: normal breath sounds, lungs clear, No respiratory distress Cardiovascular Exam: regular rate/rhythm, normal heart sounds Gastrointestinal/Abdomen Exam: soft, tenderness (RUQ), distention, No mass Extremity Exam: normal inspection, normal range of motion Back Exam: normal inspection, normal range of motion, No CVA tenderness, No vertebral tenderness Male Genitalia Exam: deferred Rectal Exam: deferred Objective Data Vital Signs: Vital Signs - 24 hr Temp Pulse Resp BP Pulse Ox 02/15/25 08:00 97.6 F 62 18 130/58 96 02/15/25 04:00 97.5 F 57 L 18 127/57 95 02/14/25 23:58 97.6 F 58 L 20 120/64 96 02/14/25 20:00 98.7 F 64 18 127/62 97 02/14/25 15:43 98.9 F 66 16 126/59 93 L 02/14/25 11:27 98.5 F 58 L 16 131/60 93 L Pain Assessment - Last Documented Pain Intensity 5 Pain Scale Used 0-10 Pain Scale Intake and Output: Intake & Output 02/12/25 02/13/25 02/14/25 02/15/25 11:59 11:59 11:59 11:59 Intake Total 2303 3975 Output Total 1500 3200 Balance 803 775 Weight 101.2 kg Lab Results: Lab Results-Last 24 Hours 02/14/25 02/14/25 02/14/25 Range/Units 11:58 16:17 22:09 WBC (4.23-9.07) x10^3/uL RBC (4.63-6.08) x10^6/uL Hgb (13.7-17.5) g/dL Hct (40.1-51.0) % MCV (79.0-92.2) fL MCH (25.7-32.2) pg MCHC (32.3-36.5) g/dL RDW (11.6-14.4) % Plt Count (163-337) x10^3/uL MPV (9.4-12.4) fL Sodium (135-145) mmol/L Potassium (3.5-5.1) mmol/L Chloride (98-107) mmol/L Carbon Dioxide (22-30) mmol/L Anion Gap (5-15) MEQ/L BUN (9-20) mg/dL Creatinine (0.66-1.25) mg/dL Estimated GFR ML/MIN Glucose (74-106) mg/dL POC Glucometer 156 H 184 H 177 H (74 to 106) mg/dL Calcium (8.4-10.2) mg/dL Total Bilirubin (0.2-1.3) mg/dL AST (17-59) U/L ALT (0-50) U/L Alkaline Phosphatase (38-126) U/L Serum Total Protein (6.3-8.2) g/dL Albumin (3.5-5.0) g/dL 02/15/25 02/15/25 02/15/25 Range/Units 04:40 04:40 07:54 WBC 4.5 (4.23-9.07) x10^3/uL RBC 3.10 L (4.63-6.08) x10^6/uL Hgb 9.1 L (13.7-17.5) g/dL Hct 29.0 L (40.1-51.0) % MCV 93.5 H (79.0-92.2) fL MCH 29.4 (25.7-32.2) pg MCHC 31.4 L (32.3-36.5) g/dL RDW 14.6 H (11.6-14.4) % Plt Count 122 L (163-337) x10^3/uL MPV 12.1 (9.4-12.4) fL Sodium 142 (135-145) mmol/L Potassium 3.7 (3.5-5.1) mmol/L Chloride 113 H (98-107) mmol/L Carbon Dioxide 20 L (22-30) mmol/L Anion Gap 12.6 (5-15) MEQ/L BUN 47 H (9-20) mg/dL Creatinine 2.22 H (0.66-1.25) mg/dL Estimated GFR 31.5 ML/MIN Glucose 140 H (74-106) mg/dL POC Glucometer 126 H (74 to 106) mg/dL Calcium 8.5 (8.4-10.2) mg/dL Total Bilirubin 0.20 (0.2-1.3) mg/dL AST 25 (17-59) U/L ALT 16 (0-50) U/L Alkaline Phosphatase 85 (38-126) U/L Serum Total Protein 5.2 L (6.3-8.2) g/dL Albumin 3.0 L (3.5-5.0) g/dL Radiology Exams: Radiology Procedures Category Date Time Status ECHO W/2D AND DOPPLER [US] Routine Exams 02/15/25 09:20 Ordered Medications: Medications Generic Name Dose Route Start Last Admin Trade Name Freq PRN Reason Stop Dose Admin Acetaminophen 325 mg 02/13/25 19:22 02/14/25 18:22 Acetaminophen 325 Mg Tablet PO 03/15/25 19:21 325 mg Q4H PRN PRN Administration PAIN, FEVER, HEADACHE Allopurinol 200 mg 02/14/25 10:00 02/14/25 09:34 Allopurinol 100 Mg Tablet PO 03/16/25 09:59 200 mg DAILY ZARIA Administration Amlodipine Besylate 5 mg 02/14/25 10:00 02/14/25 09:34 Amlodipine Besylate 5 Mg Tablet PO 03/16/25 09:59 5 mg DAILY ZARIA Administration Aspirin 81 mg 02/14/25 10:00 02/14/25 09:34 Aspirin 81 Mg Tablet.Ec PO 03/16/25 09:59 81 mg DAILY ZARIA Administration Docusate Sodium 100 mg 02/13/25 19:22 Docusate Sodium 100 Mg Capsule PO 03/15/25 19:21 BIDPRN PRN CONSTIPATION Ezetimibe 10 mg 02/14/25 10:00 02/14/25 09:34 Ezetimibe 10 Mg Tab PO 03/16/25 09:59 10 mg DAILY ZARIA Administration Sodium Chloride 1,000 mls @ 100 mls/hr 02/13/25 19:30 02/15/25 01:49 Sodium Chloride 0.9% 1000 Ml IV 03/15/25 19:29 100 mls/hr .Q10H ZARIA Administration Ampicillin Sodium/Sulbactam 100 mls @ 200 mls/hr 02/14/25 00:00 02/15/25 05:57 Sodium 1.5 g/ Sodium Chloride IV 02/17/25 00:00 200 mls/hr Q6HT ZARIA Administration Insulin Human Lispro 0 unit 02/13/25 19:22 02/13/25 22:03 Insulin Lispro 1 Unit SQ 03/15/25 19:21 4 unit UD PRN Administration HYPERGLYCEMIA Isosorbide Mononitrate 30 mg 02/14/25 10:00 02/14/25 09:34 Isosorbide Mononitrate 30 Mg Tab PO 03/16/25 09:59 30 mg DAILY ZARIA Administration Lactobacillus Acidophilus 1 tab 02/14/25 10:00 02/14/25 09:33 Lactobacillus Acidophilus 1 Tab Tablet PO 03/16/25 09:59 1 tab DAILY ZARIA Administration Metoprolol Succinate 50 mg 02/14/25 10:00 02/14/25 09:34 Metoprolol Succinate 50 Mg Tablet.Sa PO 03/16/25 09:59 50 mg DAILY ZARIA Administration Morphine Sulfate 1 mg 02/13/25 19:28 02/14/25 23:21 Morphine Sulfate 2 Mg/Ml Inj IV 02/18/25 19:27 1 mg Q4H PRN PRN Administration SEVERE PAIN Ondansetron HCl 4 mg 02/13/25 19:22 Ondansetron Hcl 4 Mg/2 Ml Vial IV 03/15/25 19:21 Q6H PRN PRN NAUSEA/VOMITING Pantoprazole Sodium 40 mg 02/13/25 22:00 02/14/25 23:02 Protonix (Pantoprazole) 40 Mg Tablet PO 03/15/25 21:59 40 mg BID ZARIA Administration Simvastatin 10 mg 02/14/25 10:00 02/14/25 09:34 Simvastatin 10 Mg Tablet PO 03/16/25 09:59 10 mg DAILY ZARIA Administration Topiramate 50 mg 02/14/25 10:00 02/14/25 09:33 Topiramate 50 Mg Tablet PO 03/16/25 09:59 50 mg DAILY ZARIA Administration Discontinued Medications Generic Name Dose Route Start Last Admin Trade Name Freq PRN Reason Stop Dose Admin Ampicillin Sodium/Sulbactam Sodium Confirm 02/14/25 01:46 Ampicillin Sodium/Sulbactam Na 1.5 G/Vial Vial Administered 02/14/25 01:47 Dose 1.5 g .ROUTE .STK-MED ONE Ampicillin Sodium/Sulbactam Sodium Confirm 02/14/25 05:46 Ampicillin Sodium/Sulbactam Na 1.5 G/Vial Vial Administered 02/14/25 05:47 Dose 1.5 g .ROUTE .STK-MED ONE Heparin Sodium (Beef Lung) 5,000 unit 02/13/25 22:00 02/13/25 22:03 Heparin 5000 Units/0.5 Ml 5,000 Unit/0.5 Ml Syr SQ 03/15/25 21:59 5,000 unit BID ZARIA Administration Sodium Chloride 1,000 mls @ 100 mls/hr 02/13/25 16:45 02/13/25 17:53 Sodium Chloride 0.9% 1000 Ml IV 03/15/25 16:44 100 mls/hr .Q10H ZARIA Administration Sodium Chloride Confirm 02/13/25 17:52 Sodium Chloride 0.9% 1000 Ml Administered 02/13/25 17:53 Dose 1,000 mls @ ud .ROUTE .STK-MED ONE Sodium Chloride Confirm 02/14/25 01:46 Sodium Chloride 0.9% Administered 02/14/25 01:47 Dose 100 mls @ ud .ROUTE .STK-MED ONE Sodium Chloride Confirm 02/14/25 05:46 Sodium Chloride 0.9% Administered 02/14/25 05:47 Dose 100 mls @ ud .ROUTE .STK-MED ONE Sodium Chloride Confirm 02/14/25 13:16 Sodium Chloride 0.9% Administered 02/14/25 13:17 Dose 100 mls @ ud .ROUTE .STK-MED ONE Morphine Sulfate 4 mg 02/13/25 18:08 02/14/25 07:17 Morphine Sulfate 4 Mg/Ml Injection IV 02/13/25 18:09 4 mg STAT ONE Administration Ondansetron HCl 4 mg 02/13/25 18:08 02/14/25 07:18 Ondansetron Hcl 4 Mg/2 Ml Vial IV 02/13/25 18:09 4 mg STAT ONE Administration Assessment/Plan (1) Cholelithiasis Current Visit: Yes Status: Acute (2) [id number] renal failure Current Visit: Yes Status: Acute Code(s): N17.9 - ACUTE KIDNEY FAILURE, UNSPECIFIED; N18.9 - CHRONIC KIDNEY DISEASE, UNSPECIFIED (3) Nausea and vomiting Current Visit: No Status: Acute Code(s): R11.2 - NAUSEA WITH VOMITING, UNSPECIFIED (4) Diabetes mellitus Current Visit: No Status: Chronic Qualifiers: Diabetes mellitus type: type 2 Diabetes mellitus terminal press operator insulin use: without terminal press operator use Code(s): E11.9 - TYPE 2 DIABETES MELLITUS WITHOUT COMPLICATIONS (5) HLD (hyperlipidemia) Current Visit: No Status: Chronic Code(s): E78.5 - HYPERLIPIDEMIA, UNSPECIFIED (6) HTN (hypertension) Current Visit: No Status: Chronic Assessment & Plan: (1) Cholelithiasis Current Visit: Yes Status: Acute Assessment & Plan: - Analgesia and antiemetics prn. - Surgery consulted in ER- Dr. Snow is considering cholecystectomy on if MOOKIE improved. - IV Unasyn for prophylaxis - CBC, CMP reviewed 02/15 - Dr. Sepulveda - - wants medical clearance by nephrology and cardiology before surgery can take place - Echo ordered as was to be done OP as part of medical clearance - CBC, CMP reviewed (2) Whjol-oh-ozsxqlg renal failure Current Visit: Yes Status: Acute Assessment & Plan: - IV fluids. - Hold metformin and potassium. - Monitor renal function. - Had recent appointment scheduled with Dr. Wright but this got canceled; will need to reschedule. - Has known CKD. - Creat 2.53 today - baseline 1.70 02/15 - Creat 2.22 - IVF - Nephrology consult for medical clearance - Pt follows Dr. Wright OP Code(s): N17.9 - ACUTE KIDNEY FAILURE, UNSPECIFIED; N18.9 - CHRONIC KIDNEY DISEASE, UNSPECIFIED (3) Nausea and vomiting Current Visit: No Status: Acute Code(s): R11.2 - NAUSEA WITH VOMITING, UNSPECIFIED - antiemetic (4) Diabetes mellitus Current Visit: No Status: Chronic Qualifiers: Diabetes mellitus type: type 2 Diabetes mellitus terminal press operator insulin use: without terminal press operator use Assessment & Plan: - A1C 7.86- controlled < 8 - Accuchecks ac/hs - Humalog s/s - Metformin held Code(s): E11.9 - TYPE 2 DIABETES MELLITUS WITHOUT COMPLICATIONS (5) HLD (hyperlipidemia) Current Visit: No Status: Chronic Assessment & Plan: - continue statin Code(s): E78.5 - HYPERLIPIDEMIA, UNSPECIFIED (6) HTN (hypertension) Current Visit: No Status: Chronic Assessment & Plan: - Continue home meds - BP stable Code(s): I10 - ESSENTIAL (PRIMARY) HYPERTENSION Code(s): I10 - ESSENTIAL (PRIMARY) HYPERTENSION (7) CHF (congestive heart failure) Current Visit: Yes Status: Chronic Assessment & Plan: - Echo pending - Pt reports he has not had an echo in the last yr. - Cardiology consult for medical clearance - No edema or SOB with IVF - Follows Dr. Taylor - Hold torsemide as receiving IVF d/t MOOKIE Code(s): I50.9 - HEART FAILURE, UNSPECIFIED (8) CAD (coronary artery disease) Current Visit: Yes Status: Chronic Assessment & Plan: - With hx of CABG and DC - General surgery wanting medical clearance by cardiology prior to surgery. - Cardiology consulted for clearance - Continue isosorbide, metoprolol - Plavix held for possible surgery if cleared. VTE: SCD's PPI: Protonix Next of KIN: Child- Simeon Marshall [phone] D/C plan: 1-2 days Code status: Full Code(s): I25.10 - ATHSCL HEART DISEASE OF [place] CORONARY ARTERY W/O ANG PCTRS
--- NOTE | 2025-02-15 09:35 | PCM.NOTE ---
01/04/25 S; had another attack ened up in the ED. patient yelling at office staff in the waiting area. o nad nonlabored resps rrr nd, soft minimal ttp ruq no r/g. a/p: chronic cholecystitis cholelithiasis see prior note. he has not shown up to his primary/nephro appointments my office staff scheduled for him. - i cannot electively schedule his gallbladder surgery withot him seeing nephro/primary. this is again discussed with the patient. he has been noncompliant and hasn't seen a medical doctor since discharge from the hospital. -f/u 1 month 12/07/24- S: "lost the papers for the kidney doctors. did order his diabetic shoes." still having the back pain above the kidneys. drinking some milk makes it feel better. o nad nonlabore dresps rrr nd, soft, mild lumbar tenderness. a/p: very difficult to have any recommendations as he hasn't followed up with PCP or nephrology. 1. nephrotic syndrome on inpatient random urine. he missed his nephrology appointment again. needs to see. 2. chronic cholecystitis cholelithiasis, hida ef 15% oct 20 2024. 3. hx large polypectomy 3cm in [place] overdue for surveillance c scope. 4. lots of heartburn but better on PPI. continue ppi. eventually egd at time of c scope. -f/u 1 month in office. 11/02/24- S: left the hospital around 2 weeks ago. both sides lower back " across my kidneys" pain. able to eat ok. used tohave heartburn but not having heartburn anymore. is taking the ppi each day. heartburn is way better. feels much better in that regard. o nad nonlabored resps rrr nd, soft, nttp a/p: 69yo complex patient multiple issues. 1. nephrotic syndrome on inpatient random urine. he missed his nephrology appointment. 2. chronic cholecystitis cholelithiasis, hida ef 15% oct 20 2024. 3. hx large polypectomy 3cm in [place] overdue for surveillance c scope. 4. lots of heartburn but better on PPI. continue ppi. eventually egd at time of c scope. -f/u 1 month in office. 10/20/24- HIDA @[facility] Impression, 1- HIDA scan portion the exam remains normal - 2 continued low ejection fraction Again rule out chronic cholecystitis 10/18/24- Consult- [facility]
--- NOTE | 2025-02-15 10:34 | CONS ---
BRIEF HISTORY: This is a 69-year-old male with a history of CABG and presenting with abdominal pain, mostly in the right upper quadrant, with associated nausea. This has since resolved. He was admitted for this problem. He had been evaluated outpatient for possible cholecystectomy due to him having these symptoms multiple times. He had been evaluated by our group for this, and he presented to the ER unfortunately since he had these symptoms. UPDATED MEDICAL HISTORY AND SURGICAL HISTORY: Significant for having prior bypass surgery and umbilical hernia repair. He did have a history of cardiac disease with stents. PHYSICAL EXAMINATION: GENERAL: Alert and oriented, resting comfortably in the bed. VITAL SIGNS: Stable. ABDOMEN: Nontender, currently soft, nondistended. LABORATORY RESULTS: White count 6.1. Otherwise, he does have an elevated creatinine to 2.7. Unclear if this is acute or chronic. His bilirubin is normal. AST and ALT are also normal. Alk phos is 104 and is borderline elevated. ASSESSMENT: Patient with abdominal pain with known history of gallbladder disease. PLAN: I am going to review the patient's imaging and see what kind of gallbladder disease he has and whether he has gallstones or any other workup, but if so, we will plan for gallbladder surgery within the next few days ideally. He does not appear to be on any blood thinners. He is getting antibiotics. No emergent surgery, but we will plan for surgery shortly.
--- NOTE | 2025-02-15 13:28 | PCM.CONS ---
History of Present Illness - Date of Consult Date of Encounter: 02/15/25 Consulting Anthropology Department Chair: MARY CARVAJAL MD Requesting Provider: Attending Provider: TYRON FOWLER MD Primary Care Provider: PCP: NICCI CLAROS Consent was: Given for this tele-med encounter - Consult Narrative Reason for Consult: pre op evaluation HPI: 69 yo M w/ PMHx of CAD s/p CABG, HL, DM, and CKD who presents for evaluation of gallbladder disease with RUQ pain and nausea, now improved. Please refer to patient's HPI for details on the patient's presentation. Cardiology is asked to evaluate for preop risk assessment. The patient denies any exertional CP, SOB, orthopnea, or PND. He denies any known history of heart valve problems. He reports activity is limited by back pain. He can do chores but has to take breaks when his back starts to ache. He reports he can walk 100 yards before having to stop due to back pain. He sleeps flat in a bed with no issues. I've read his echo today which shows Normal LV/RV size and systolic function. Mild to moderate LVH. G2 diastolic dysfunction. Degenerative AV disease with mild to moderate . Mild MR/TR/AK. Est. RVSP 41 mmHg. cc:: The requesting physician will be sent a copy of the consult. Review of Systems - Review of Systems All systems: as per HPI - Past Medical History Past Medical History: Yes Neurological History: No Pertinent History ENT History: No Pertinent History Cardiac History: Angina, Congestive Heart Failure, Coronary Artery Disease, High Cholesterol, Hypertension, Myocardial Infarction (AR) Respiratory History: COPD, Pulmonary Embolism Endocrine Medical History: Diabetes Type II Musculoskelatal History: Osteoarthritis GI Medical History: No Pertinent History History: No Pertinent History Pyscho-Social History: Depression Male Reproductive Disorders: No Pertinent History Comment: fractured ribs, anemia, gout - Past Surgical History Past Surgical History: Yes Neuro Surgical History: No Pertinent History Cardiac History: CABG, Cardiac Catheterization, Cardiac Stent, Other Respiratory Surgery: Chest Surgery GI Surgical History: No Pertinent History Genitourinary Surgical Hx: No Pertinent History Musculskeletal Surgical Hx: Orthopedic Surgery Male Surgical History: No Pertinent History Other Surgical History: umbilical, triple bypass, L shoulder. polyp removal, right 4th/5th toe amputation Significant Family History: no pertinent family hx - Social History Smoking Status: Current some day smoker How long have you smoked: 45 years Exposure to second hand smoke: Yes Alcohol: None Drug Use: none - Social Determinants of Health Will the patient participate in the screening: Yes Do you worry about a steady place to live?: No Do you have any problems with any of the following?: Unsafe yun/stairs In the past 12 months,have you had to go without utilities?: Yes Have you or anyone in your house had to go without enough: No Transportation Issues: No Has anyone in your support network made you feel unsafe?: No Does the patient want assistance with any of the above?: No Comment: about to move Medications & Allergies Home Medications: Home Medication List Amlodipine Besylate 5 mg [Norvasc 5 mg] 5 mg PO DAILY 30 Days #30 tablet 05/09/24 [Rx Confirmed 02/13/25] Aspirin EC 81 mg [Ecotrin 81 mg] 81 mg PO DAILY 30 Days #30 tablet 05/09/24 [Rx Confirmed 02/13/25] Metoprolol Succinate 50 mg [Toprol Xl 50 MG] 50 mg PO DAILY 30 Days #30 tablet 05/09/24 [Rx Confirmed 02/13/25] Simvastatin 10 mg [Zocor 10MG] 10 mg PO DAILY 30 Days #30 tablet 05/09/24 [Rx Confirmed 02/13/25] Topiramate 25 mg [Topamax 25 MG] 50 mg PO DAILY 30 Days #60 cap 05/09/24 [Rx Confirmed 02/13/25] Ezetimibe 10 mg [Zetia 10 MG] 10 mg PO DAILY 10/18/24 [History Confirmed 02/13/25] Isosorbide Mononitrate 30 mg PO DAILY 10/19/24 [History Confirmed 02/13/25] Metformin HCl 500 mg [Glucophage 500 MG] 500 mg PO BIDWM 10/19/24 [History Confirmed 02/13/25] PANTOPRAZOLE 40 mg Tablet [Protonix 40MG Tablet] 40 mg PO BID 10/19/24 [History Confirmed 02/13/25] Potassium Chloride 20 meq PO DAILY 10/19/24 [History Confirmed 02/13/25] allopurinoL [Zyloprim] 200 mg PO DAILY 10/19/24 [History Confirmed 02/13/25] Clopidogrel Bisulfate [Plavix] 75 mg PO DAILY 02/13/25 [History Confirmed 02/13/25] Torsemide 20 mg [Demadex 20 mg] 20 mg PO BID 02/13/25 [History Confirmed 02/13/25] Allergies/Adverse Reactions: Allergies Allergy/AdvReac Type Severity Reaction Status Date / Time gabapentin AdvReac Verified 02/13/25 17:09 Exam - Vitals Vital Signs: Vital Signs - 24 hr Temp Pulse Resp BP Pulse Ox 02/15/25 12:00 97 F 68 18 128/60 95 02/15/25 08:00 97.6 F 62 18 130/58 96 02/15/25 04:00 97.5 F 57 L 18 127/57 95 02/14/25 23:58 97.6 F 58 L 20 120/64 96 02/14/25 20:00 98.7 F 64 18 127/62 97 02/14/25 15:43 98.9 F 66 16 126/59 93 L General:: alert and oriented x 4, no acute distress HEENT: EOMI Cardiovascular Exam: regular rate/rhythm, other (very distant HS, difficult to auscultate) Respiratory Exam: normal breath sounds SpO2: 95 Gastrointestinal/Abdomen Exam: other (obese, soft, nt/nd) Extremity Exam: other (no edema) Neurologic: other (grossly intact) Results Vital Signs: Vital Signs - 24 hr Temp Pulse Resp BP Pulse Ox 02/15/25 12:00 97 F 68 18 128/60 95 02/15/25 08:00 97.6 F 62 18 130/58 96 02/15/25 04:00 97.5 F 57 L 18 127/57 95 02/14/25 23:58 97.6 F 58 L 20 120/64 96 02/14/25 20:00 98.7 F 64 18 127/62 97 02/14/25 15:43 98.9 F 66 16 126/59 93 L Pain Assessment - Last Documented Pain Intensity 5 Pain Scale Used 0-10 Pain Scale Intake and Output: Intake & Output 02/13/25 02/14/25 02/15/25 02/16/25 11:59 11:59 11:59 11:59 Intake Total 2303 4025 300 Output Total 1500 3400 200 Balance 803 625 100 Weight 101.2 kg LAB: I have reviewed the Labs in [facility]. Radiology Exams: Radiology Procedures Category Date Time Status ECHO W/2D AND DOPPLER [US] Routine Exams 02/15/25 09:20 Taken - ECHO Echo: interpreted by me Assessment & Plan (1) Aortic stenosis Current Visit: Yes Status: Acute Assessment & Plan: Mild to moderate on echo. He is apparently asymptomatic from this lesion. 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 Code(s): I35.0 - NONRHEUMATIC AORTIC (VALVE) STENOSIS (2) Preprocedural cardiovascular examination Current Visit: Yes Status: Acute Assessment & Plan: RSCI score is 3 with 15% risk of MACE. He has no modifiable risk factors prior to surgery. His is not severe so shouldn't be a significant barrier but will need to take care not to drop his pressures too much during surgery. - Encounter Encounter: "The entirety of this encounter was performed via Telemedicine using audio and visual "
--- NOTE | 2025-02-15 15:40 | PCM.CONS ---
History of Present Illness - Reason for Consult Chief Complaint: dehydration, MOOKIE, Cholelithiasis, Biliary colic Requesting Provider: TYRON FOWLER MD Consulting Provider: NATALIE HUANG MD History of Present Illness: is a 69 year old male. very difficult case. i saw him on a previous admission for chronic cholecystitis cholelithiasis. he medel kidney disease baseline medical problems but he has not seen a single other physician since being in the hospital. saw me twice. i strongly talked to him that he would have to get established with neprhology/medicine prior to any elective outpatient procedure. he cam back to ed with ruq pain. he has vague nonspecific nonruq pain also that seems unrelated. regardless he has been medically optimized. pain is the entire abdomen not just the ruq. no n/v. no bowel issues. "- History of Present Illness Time Seen by Provider: 02/13/25 17:07 Source: patient Exam Limitations: no limitations Patient Subjective Stated Complaint: patient states he just wasn't feeling well thinks it may be his gallbladder Triage Nursing Assessment: patient alert oriented x3, patient states he got little funny feeling. vitals all within normal limits. pulses equal bialteral radius, skin warm dry nad intact, bowel sounds present x4. lung sounds clear. Physician History: 69-year-old male presents to our ED for evaluation of acute onset nausea and right upper quadrant pain. Patient states that he believes it is his gallbladder. Patient reports that he is getting his gallbladder removed in the next week. Patient was at home. He began to feel nauseous and pain in the right upper quadrant. Patient states "I did not feel well". Symptoms have since resolved. Patient currently asymptomatic. No trauma. Patient denies chest pain. No vomiting no diaphoresis. Symptoms are mild to moderate in intensity. No specific worsening or improving factors. Patient voices no other complaints or concerns at this time. Portions of this note were created with voice recognition technology. There may be grammatical, spelling, punctuation or sound alike errors Timing/Duration: today Severity: moderate Modifying Factors: Improves With: nothing Associated Symptoms: denies symptoms Allergies/Adverse Reactions: gabapentin Adverse Reaction (Verified 02/13/25 17:09) "got kind of loopy" Home Medications: Ezetimibe 10 mg [Zetia 10 MG] 10 mg PO DAILY 10/18/24 [History] Isosorbide Mononitrate 30 mg PO DAILY 10/19/24 [History] Metformin HCl 500 mg [Glucophage 500 MG] 500 mg PO BIDWM 10/19/24 [History] PANTOPRAZOLE 40 mg Tablet [Protonix 40MG Tablet] 40 mg PO BID 10/19/24 [History] Potassium Chloride 20 meq PO DAILY 10/19/24 [History] allopurinoL [Zyloprim] 200 mg PO DAILY 10/19/24 [History] Hx Tetanus, Diphtheria Vaccination/Date Given: No Hx Influenza Vaccination/Date Given: Yes Hx Pneumococcal Vaccination/Date Given: Yes Immunizations Up to Date: Yes Travel Risk - International Travel Have you traveled outside of the country in past 3 weeks: No - Emerging Infectious Disease Are you exhibiting symptoms associated with any current EIDs: No Symptoms: Abdominal Pain - Review of Systems Constitutional: No Symptoms, No Fever, No Chills Eyes: No Symptoms Ears, Nose, & Throat: No Symptoms Respiratory: No Symptoms, No Cough, No Dyspnea Cardiac: No Symptoms, No Chest Pain, No Edema, No Syncope Abdominal/Gastrointestinal: No Symptoms, No Abdominal Pain, No Nausea, No Vomiting, No Diarrhea Genitourinary Symptoms: No Symptoms, No Dysuria Musculoskeletal: No Symptoms, No Back Pain, No Neck Pain Skin: No Symptoms, No Rash Neurological: No Symptoms, No Dizziness, No Focal Weakness, No Sensory Changes Psychological: No Symptoms Endocrine: No Symptoms Hematologic/Lymphatic: No Symptoms Immunological/Allergic: No Symptoms All Other Systems: Reviewed and Negative - Past Medical History Pertinent Past Medical History: Yes Neurological History: No Pertinent History ENT History: No Pertinent History Cardiac History: Angina, Congestive Heart Failure, Coronary Artery Disease, High Cholesterol, Hypertension, Myocardial Infarction ([place]) Respiratory History: COPD, Pulmonary Embolism Endocrine Medical History: Diabetes Type II Musculoskeletal History: Osteoarthritis GI Medical History: No Pertinent History History: No Pertinent History Psycho-Social History: Depression Male Reproductive Disorders: No Pertinent History Other Medical History: fractured ribs, anemia, gout - Past Surgical History Past Surgical History: Yes Neuro Surgical History: No Pertinent History Cardiac: CABG, Cardiac Catheterization, Cardiac Stent, Other Respiratory: Chest Surgery Gastrointestinal: No Pertinent History Genitourinary: No Pertinent History Musculoskeletal: Orthopedic Surgery Male Surgical History: No Pertinent History Other Surgical History: umbilical, triple bypass, L shoulder. polyp removal, right 4th/5th toe amputation Significant Family History: no pertinent family hx - Social History Smoking Status: Current every day smoker Exposure to second hand smoke: Yes Drug Use: none - Social Determinants of Health Will the patient participate in the screening: Declined to provide Do you worry about a steady place to live?: No In the past 12 months,have you had to go without utilities?: No Transportation Issues: No Has anyone in your support network made you feel unsafe?: No Have you or anyone in your house had to go w/o enough food: No" Medications & Allergies Home Medications: Home Medication List Amlodipine Besylate 5 mg [Norvasc 5 mg] 5 mg PO DAILY 30 Days #30 tablet 05/09/24 [Rx Confirmed 02/13/25] Aspirin EC 81 mg [Ecotrin 81 mg] 81 mg PO DAILY 30 Days #30 tablet 05/09/24 [Rx Confirmed 02/13/25] Metoprolol Succinate 50 mg [Toprol Xl 50 MG] 50 mg PO DAILY 30 Days #30 tablet 05/09/24 [Rx Confirmed 02/13/25] Simvastatin 10 mg [Zocor 10MG] 10 mg PO DAILY 30 Days #30 tablet 05/09/24 [Rx Confirmed 02/13/25] Topiramate 25 mg [Topamax 25 MG] 50 mg PO DAILY 30 Days #60 cap 05/09/24 [Rx Confirmed 02/13/25] Ezetimibe 10 mg [Zetia 10 MG] 10 mg PO DAILY 10/18/24 [History Confirmed 02/13/25] Isosorbide Mononitrate 30 mg PO DAILY 10/19/24 [History Confirmed 02/13/25] Metformin HCl 500 mg [Glucophage 500 MG] 500 mg PO BIDWM 10/19/24 [History Confirmed 02/13/25] PANTOPRAZOLE 40 mg Tablet [Protonix 40MG Tablet] 40 mg PO BID 10/19/24 [History Confirmed 02/13/25] Potassium Chloride 20 meq PO DAILY 10/19/24 [History Confirmed 02/13/25] allopurinoL [Zyloprim] 200 mg PO DAILY 10/19/24 [History Confirmed 02/13/25] Clopidogrel Bisulfate [Plavix] 75 mg PO DAILY 02/13/25 [History Confirmed 02/13/25] Torsemide 20 mg [Demadex 20 mg] 20 mg PO BID 02/13/25 [History Confirmed 02/13/25] Allergies/Adverse Reactions: Allergies Allergy/AdvReac Type Severity Reaction Status Date / Time gabapentin AdvReac Verified 02/13/25 17:09 - Past Medical History Past Medical History: Yes Neurological History: No Pertinent History ENT History: No Pertinent History Cardiac History: Angina, Congestive Heart Failure, Coronary Artery Disease, High Cholesterol, Hypertension, Myocardial Infarction ([place]) Respiratory History: COPD, Pulmonary Embolism Endocrine Medical History: Diabetes Type II Musculoskelatal History: Osteoarthritis GI Medical History: No Pertinent History History: No Pertinent History Pyscho-Social History: Depression Male Reproductive Disorders: No Pertinent History Comment: fractured ribs, anemia, gout - Past Surgical History Past Surgical History: Yes Neuro Surgical History: No Pertinent History Cardiac History: CABG, Cardiac Catheterization, Cardiac Stent, Other Respiratory Surgery: Chest Surgery GI Surgical History: No Pertinent History Genitourinary Surgical Hx: No Pertinent History Musculskeletal Surgical Hx: Orthopedic Surgery Male Surgical History: No Pertinent History Other Surgical History: umbilical, triple bypass, L shoulder. polyp removal, right 4th/5th toe amputation Significant Family History: no pertinent family hx - Social History Smoking Status: Current some day smoker How long have you smoked: 45 years Exposure to second hand smoke: Yes Alcohol: None Drug Use: none - Social Determinants of Health Will the patient participate in the screening: Yes Do you worry about a steady place to live?: No Do you have any problems with any of the following?: Unsafe yun/stairs In the past 12 months,have you had to go without utilities?: Yes Have you or anyone in your house had to go without enough: No Transportation Issues: No Has anyone in your support network made you feel unsafe?: No Does the patient want assistance with any of the above?: No Comment: about to move - Physical Exam Vital Signs: Vital Signs - 24 hr Temp Pulse Resp BP Pulse Ox 02/15/25 13:39 95 02/15/25 12:00 97 F 68 18 128/60 95 05/08/25 08:00 97.6 F 62 18 130/58 96 02/15/25 04:00 97.5 F 57 L 18 127/57 95 02/14/25 23:58 97.6 F 58 L 20 120/64 96 02/14/25 20:00 98.7 F 64 18 127/62 97 02/14/25 15:43 98.9 F 66 16 126/59 93 L Additional Findings: 02/15/25 15:38 nad no scleral icterus neck symmetric nonlabored repss reg rate mild dist, soft mild ttp diffusely. no burkett. no r/g. mild edema Results - Labs Lab/Micro Results: Lab Results-Last 24 Hours 02/14/25 02/14/25 02/15/25 Range/Units 16:17 22:09 04:40 WBC 4.5 (4.23-9.07) x10^3/uL RBC 3.10 L (4.63-6.08) x10^6/uL Hgb 9.1 L (13.7-17.5) g/dL Hct 29.0 L (40.1-51.0) % MCV 93.5 H (79.0-92.2) fL MCH 29.4 (25.7-32.2) pg MCHC 31.4 L (32.3-36.5) g/dL RDW 14.6 H (11.6-14.4) % Plt Count 122 L (163-337) x10^3/uL MPV 12.1 (9.4-12.4) fL Sodium (135-145) mmol/L Potassium (3.5-5.1) mmol/L Chloride (98-107) mmol/L Carbon Dioxide (22-30) mmol/L Anion Gap (5-15) MEQ/L BUN (9-20) mg/dL Creatinine (0.66-1.25) mg/dL Estimated GFR ML/MIN Glucose (74-106) mg/dL POC Glucometer 184 H 177 H (74 to 106) mg/dL Calcium (8.4-10.2) mg/dL Total Bilirubin (0.2-1.3) mg/dL AST (17-59) U/L ALT (0-50) U/L Alkaline Phosphatase (38-126) U/L Serum Total Protein (6.3-8.2) g/dL Albumin (3.5-5.0) g/dL 02/15/25 02/15/25 02/15/25 Range/Units 04:40 07:54 11:58 WBC (4.23-9.07) x10^3/uL RBC (4.63-6.08) x10^6/uL Hgb (13.7-17.5) g/dL Hct (40.1-51.0) % MCV (79.0-92.2) fL MCH (25.7-32.2) pg MCHC (32.3-36.5) g/dL RDW (11.6-14.4) % Plt Count (163-337) x10^3/uL MPV (9.4-12.4) fL Sodium 142 (135-145) mmol/L Potassium 3.7 (3.5-5.1) mmol/L Chloride 113 H (98-107) mmol/L Carbon Dioxide 20 L (22-30) mmol/L Anion Gap 12.6 (5-15) MEQ/L BUN 47 H (9-20) mg/dL Creatinine 2.22 H (0.66-1.25) mg/dL Estimated GFR 31.5 ML/MIN Glucose 140 H (74-106) mg/dL POC Glucometer 126 H 112 H (74 to 106) mg/dL Calcium 8.5 (8.4-10.2) mg/dL Total Bilirubin 0.20 (0.2-1.3) mg/dL AST 25 (17-59) U/L ALT 16 (0-50) U/L Alkaline Phosphatase 85 (38-126) U/L Serum Total Protein 5.2 L (6.3-8.2) g/dL Albumin 3.0 L (3.5-5.0) g/dL Accuchecks Date 02/14/25 Time 16:23 - Radiology Impressions Radiology Exams & Impressions: Radiology Procedures Category Date Time Status ECHO W/2D AND DOPPLER [US] Routine Exams 02/15/25 09:20 Taken Assessment/Plan (1) Cholelithiasis Current Visit: Yes Status: Acute Assessment & Plan: difficult case primarily due to complete outpatient noncompliance with seeing any medical doctor. regardless he appears to have chronic cholecystitis cholelithiasis as part of his issue. see my prior notes. he has been optimized as well as possible and discussions had with the patient and he really wants to proceed wtih inpt cholecystectomy. this is not guaranteed to fix all of his issues, but the postprandial ruq pain certainly is consistent with chronic chol e. -lap nawaf possible open gen.
[2025-02-15] MEDS ORDERED: ROCURONIUM BROMIDE IV ONE (16:23)
[2025-02-15] MEDS ORDERED: BRIDION 200MG/2ML IV ONE (16:23)
[2025-02-15] MEDS ORDERED: TORAdol 30 mg Injection ONE (16:23)
[2025-02-15] MEDS ORDERED: propofoL IV ONE (16:23)
[2025-02-15] MEDS ORDERED: Xylocaine-Mpf 2% 5 Ml Vial ONE (16:23)
[2025-02-15] MEDS ORDERED: Zofran 4 MG/2 ML VIAL ONE ×2 (16:23→18:23)
[2025-02-15] MEDS ORDERED: dexAMETHasone sodium phosphate ONE (16:23)
[2025-02-15] MEDS ORDERED: SUBLIMAZE 100 MCG/2 ML ONE ×2 (16:23→18:24)
[2025-02-15] MEDS ORDERED: Sensorcaine 0.25% 10 ML ONE (16:58)
[2025-02-15] MEDS ORDERED: Amidate 20 MG/10 ML IV ONE (17:00)
[2025-02-15] MEDS ORDERED: PHENYLEPHRINE HCL ONE (17:03)
[2025-02-15] MEDS ORDERED: ROBINUL ONE (17:27)
[2025-02-15] MEDS ORDERED: Sodium Chloride 0.9% 1000 ML 1,000 ML ONE (17:28)
[2025-02-15] MEDS ORDERED: CEFOXITIN IV ONE (17:28)
[2025-02-15] MEDS ORDERED: NACL IV ONE (17:28)
[2025-02-15] MEDS ORDERED: CEFOXITIN 2 GM/100 ML NACL IVPB 2 GM/100 ML IVPB IV ONE (17:33)
[2025-02-15] MEDS ORDERED: DILAUDID 0.5 MG/0.5 ML SYRINGE ONE (18:38)
[2025-02-16 02:14] LABS: CREATININE,URINE RANDOM 25.8 MG/DL
[2025-02-16 05:06] LABS: Hematocrit 32.4 % (40.1-51.0); Hemoglobin 10.1 g/dL (13.7-17.5); Mean Cell Volume 93.4 fL (79.0-92.2); Mean Corpuscular Hemoglobin 29.1 pg (25.7-32.2); Mean Corpuscular Hgb Concent. 31.2 g/dL (32.3-36.5); Mean Platelet Volume 12.8 fL (9.4-12.4); Platelet Count 125 x10^3/uL (163-337); Red Blood Count 3.47 x10^6/uL (4.63-6.08); Red Cell Distribution Width 14.7 % (11.6-14.4); White Blood Count 7.4 x10^3/uL (4.23-9.07)
[2025-02-16 05:42] LABS: ALBUMIN 3.3 g/dL (3.5-5.0); ANION GAP 16.6 MEQ/L (5-15); BILIRUBIN,TOTAL 0.3 mg/dL (0.2-1.3); Calcium 8.8 mg/dL (8.4-10.2); Creatinine 1 1.95 mg/dL (0.66-1.25); EST GLOMERULAR FILTRATION RATE 36.8 ML/MIN; Potassium 4.5 mmol/L (3.5-5.1); Total Protein 5.6 g/dL (6.3-8.2)
[2025-02-16] MEDS: SODIUM BICARBONATE PO SCH (09:03)
[2025-02-16] MEDS: NORCO 5/325 MG PO PRN (11:12)
--- NOTE | 2025-02-16 11:14 | PCM.DS ---
Discharge Summary Date of Admission: 02/13/25 18:15 Date of Discharge: 02/16/25 Admitting Physician: TYRON FOWLER MD Consults: Consults on Case 02/13/25 18:23 Consult Surgery ROUTINE 02/13/25 19:30 Consult Surgery ROUTINE 02/15/25 09:20 Consult Nephrology ROUTINE 02/15/25 09:22 Consult Cardiology ROUTINE Primary Care Provider: NICCI CLAROS Allergies Allergies gabapentin Adverse Reaction (Verified 02/13/25 17:09) "got kind of loopy" Hospital Summary - Hospital Course Hospital Course: 02/14/25 A 69-year-old male with a history of hyperlipidemia, type 2 diabetes mellitus, chronic kidney disease (baseline creatinine ~1.70), and recent gallbladder disease (previously evaluated by Dr. Jacobson with plans for possible outpatient cholecystectomy) presented to the emergency department with acute onset of nausea and right upper quadrant abdominal pain. The symptoms have since resolved, and the patient is currently asymptomatic, denying any further abdominal pain, vomiting, chest pain, diaphoresis, or trauma. On presentation, he was found to have an acute on chronic kidney injury, today creatinine of 2.53. Surgery (Dr. Snow) was consulted and recommended supportive treatment for MOOKIE, with potential for cholecystectomy on if renal function improves. IV fluids were initiated, and renal function has shown improvement. Heparin has been held, and sequential compression devices (SCDs) were started for DVT prophylaxis. The patient reports good pain control and has no current concerns. He remains hemodynamically stable and under continued monitoring for renal recovery and surgical planning. 02/15/25 The patient is resting in bed. There were no notes from the surgical team in the chart, so the nurse, PAULA Irvin, was asked to contact Surgery this morning for an update on the plan of care. The patient remains NPO in anticipation of surgery. The RN spoke with Dr. Sepulveda, and per the surgical team, the patient requires medical clearance from both cardiology and nephrology prior to proceeding with surgery. These evaluations were initially planned as outpatient but were not completed. Cardiology and nephrology have now been consulted for inpatient clearance. If cleared, the patient may proceed with surgery later today or tomorrow. Renal function is improving, with creatinine down to 2.22 today. The patient continues to report right upper quadrant pain, rated 8/10 this morning, for which nursing administered pain medication. He currently denies any additional concerns. 02/16/25 Pt sitting up in chair. He has been walking around w/o concerns. He is eating and drinking well. He is passing gas. He was cleared by cardiology yesterday for surgery. Unknown if nephro saw pt as there is no note. He was taken to OR yesterday for lap choley. Co2 17 and oral bicarb started. If bicarb improved this afternoon february d/c. He states he feels fine and would like to d/c. He denies CP, SOB, abd. pain, N/V/D. - Vitals & Intake/Output Vital Signs: Vital Signs Temperature 97.6 F 02/16/25 07:50 Pulse Rate 56 L 02/16/25 07:50 Respiratory Rate 17 02/16/25 07:50 Blood Pressure 153/69 02/16/25 07:50 O2 Sat by Pulse Oximetry 95 02/16/25 07:50 Intake & Output: Intake & Output 02/13/25 02/14/25 02/15/25 02/16/25 11:59 11:59 11:59 11:59 Intake Total 2303 4025 5161 Output Total 1500 3400 2200 Balance 360 074 8738 Weight 101.2 kg 101.2 kg - Lab Result Diagrams: 02/16/25 04:59 02/16/25 04:59 Lab Results-Last 24 Hrs: Lab Results-Last 24 Hours 02/15/25 02/15/25 02/15/25 Range/Units 01:00 11:58 21:40 WBC (4.23-9.07) x10^3/uL RBC (4.63-6.08) x10^6/uL Hgb (13.7-17.5) g/dL Hct (40.1-51.0) % MCV (79.0-92.2) fL MCH (25.7-32.2) pg MCHC (32.3-36.5) g/dL RDW (11.6-14.4) % Plt Count (163-337) x10^3/uL MPV (9.4-12.4) fL Sodium (135-145) mmol/L Potassium (3.5-5.1) mmol/L Chloride (98-107) mmol/L Carbon Dioxide (22-30) mmol/L Anion Gap (5-15) MEQ/L BUN (9-20) mg/dL Creatinine (0.66-1.25) mg/dL Estimated GFR ML/MIN Glucose (74-106) mg/dL POC Glucometer 112 H 141 H (74 to 106) mg/dL Calcium (8.4-10.2) mg/dL Total Bilirubin (0.2-1.3) mg/dL AST (17-59) U/L ALT (0-50) U/L Alkaline Phosphatase (38-126) U/L Serum Total Protein (6.3-8.2) g/dL Albumin (3.5-5.0) g/dL Ur Random Creatinine 25.8 MG/DL U Random Total Protein 275 H (0-12) mg/dL 02/16/25 02/16/25 02/16/25 Range/Units 04:59 04:59 07:41 WBC 7.4 (4.23-9.07) x10^3/uL RBC 3.47 L (4.63-6.08) x10^6/uL Hgb 10.1 L (13.7-17.5) g/dL Hct 32.4 L (40.1-51.0) % MCV 93.4 H (79.0-92.2) fL MCH 29.1 (25.7-32.2) pg MCHC 31.2 L (32.3-36.5) g/dL RDW 14.7 H (11.6-14.4) % Plt Count 125 L (163-337) x10^3/uL MPV 12.8 H (9.4-12.4) fL Sodium 142 (135-145) mmol/L Potassium 4.5 D (3.5-5.1) mmol/L Chloride 113 H (98-107) mmol/L Carbon Dioxide 17 L (22-30) mmol/L Anion Gap 16.6 H (5-15) MEQ/L BUN 42 H (9-20) mg/dL Creatinine 1.95 H (0.66-1.25) mg/dL Estimated GFR 36.8 ML/MIN Glucose 248 H (74-106) mg/dL POC Glucometer 208 H (74 to 106) mg/dL Calcium 8.8 (8.4-10.2) mg/dL Total Bilirubin 0.30 (0.2-1.3) mg/dL AST 80 H (17-59) U/L ALT 42 (0-50) U/L Alkaline Phosphatase 84 (38-126) U/L Serum Total Protein 5.6 L (6.3-8.2) g/dL Albumin 3.3 L (3.5-5.0) g/dL Ur Random Creatinine MG/DL U Random Total Protein (0-12) mg/dL Micro Results-Entire Visit: Accuchecks Date 02/16/25 Time 07:49 - Radiology Exams Ordered Rad Exams-Entire Visit: Radiology Procedures Category Date Time Status ECHO W/2D AND DOPPLER [US] Routine Exams 02/15/25 09:20 Taken - Procedures and Test Procedures and Tests throughout Hospitalization: Therapy Orders & Screens 02/13/25 19:18 Smoking Cessation Education ONCE Comment: Diagnosis: dehydration, MOOKIE, Cholelithiasis, Biliary colic Smoking Status: Current some day smoker How long have you smoked: 45 years Have you smoked in the past 12 months: Yes Approximately how many cigarettes per day: 3-4 Do you dip or chew tobacco: Yes If,Former Smoker,when did you quit: 2022 ST Screen per Nursing Assess ONCE Comment: Protocol Order Physician Instructions: Greater than [address] Admission Screening Reason For Exam: Triggered on Admission Diagnosis: dehydration, MOOKIE, Cholelithiasis, Biliary colic CVA/Dysphagia/Aphasia: No Cognitive Deficits: No Dehydration/Nutrition Deficit: Yes Reflux: Yes Oral-Motor Difficulties: No Pneumonia: No Snf Resident: No Total Points: 8 02/13/25 20:29 Respiratory Therapy Consult ONCE Comment: Reason For Exam: Diagnosis: dehydration, MOOKIE, Cholelithiasis, Biliary colic Discharge Exam General Appearance: no apparent distress, alert Neurologic Exam: alert, oriented x 3, cooperative, normal mood/affect, nml cerebellar function, sensation nml, No motor deficits Eye Exam: PERRL, EOMI, eyes nml inspection Ears, Nose, Throat Exam: normal ENT inspection, pharynx normal, moist mucous membranes Neck Exam: normal inspection, non-tender, supple, full range of motion Respiratory Exam: normal breath sounds, lungs clear, No respiratory distress Cardiovascular Exam: regular rate/rhythm, normal heart sounds Gastrointestinal/Abdomen Exam: soft, No tenderness, No mass Male Genitalia Exam: deferred Rectal Exam: deferred Back Exam: normal inspection, normal range of motion, No CVA tenderness, No vertebral tenderness Extremity Exam: normal inspection, normal range of motion Skin Exam: normal color, warm, dry, other (incicions covered) Wound Assessment: Skin/Wound Assessment Wound/Incision Assessment Start: 02/16/25 08:32 Text: Status: Active Freq: Q6H Protocol: Document 02/16/25 08:00 BANNER (Rec: 02/16/25 08:33 BANNER [id number]) Wound/Incision Assessment Anterior Abdomen Wound Assessment Shift Assessment Wound Type Incision Wound Stage Non Pressure Wound Dressing Status Dry & Intact Drainage Amount None Drainage Odor None/Absent Primary Dressing Gauze Pads Secondary Dressing tegaderm Comment POD #1, 4 incisions, unable to assess, drsg remains C/D/I with no shadowing noted. drsg consists of gauze and tegaderm Wound Photo Photo Taken No Final Diagnosis/Problem List - Final Discharge Diagnosis/Problem (1) Cholelithiasis Current Visit: Yes Status: Acute (2) Aimyk-yp-ipyztsi renal failure Current Visit: Yes Status: Acute Code(s): N17.9 - ACUTE KIDNEY FAILURE, UNSPECIFIED; N18.9 - CHRONIC KIDNEY DISEASE, UNSPECIFIED (3) Nausea and vomiting Current Visit: No Status: Acute Code(s): R11.2 - NAUSEA WITH VOMITING, UNSPECIFIED (4) Diabetes mellitus Current Visit: No Status: Chronic Code(s): E11.9 - TYPE 2 DIABETES MELLITUS WITHOUT COMPLICATIONS (5) HLD (hyperlipidemia) Current Visit: No Status: Chronic Code(s): E78.5 - HYPERLIPIDEMIA, UNSPECIFIED (6) HTN (hypertension) Current Visit: No Status: Chronic Code(s): I10 - ESSENTIAL (PRIMARY) HYPERTENSION (7) CHF (congestive heart failure) Current Visit: Yes Status: Chronic Code(s): I50.9 - HEART FAILURE, UNSPECIFIED (8) CAD (coronary artery disease) Current Visit: Yes Status: Chronic Assessment & Plan: (1) Cholelithiasis Current Visit: Yes Status: Acute Assessment & Plan: - Analgesia and antiemetics prn. - Surgery consulted in ER- Dr. Snow is considering cholecystectomy on if MOOKIE improved. - IV Unasyn for prophylaxis - CBC, CMP reviewed 02/15 - Dr. Sepulveda - - wants medical clearance by nephrology and cardiology before surgery can take place - Echo ordered as was to be done OP as part of medical clearance - CBC, CMP reviewed - Cardiology cleared pt for surgery 02/16 - OK to d/c per (2) [id number] renal failure Current Visit: Yes Status: Acute Assessment & Plan: - IV fluids. - Hold metformin and potassium. - Monitor renal function. - Had recent appointment scheduled with Dr. Wright but this got canceled; will need to reschedule. - Has known CKD. - Creat 2.53 today - baseline 1.70 02/15 - Creat 2.22 - IVF - Nephrology consult for medical clearance - Pt follows Dr. 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: w [facility] use Assessment & Plan: - A1C 7.86- controlled < 8 - Accuchecks ac/hs - Humalog s/s - Metformin held Code(s): E11.9 - TYPE 2 DIABETES MELLITUS WITHOUT COMPLICATIONS (5) HLD (hyperlipidemia) Current Visit: No Status: Chronic Assessment & Plan: - continue statin Code(s): E78.5 - HYPERLIPIDEMIA, UNSPECIFIED (6) HTN (hypertension) Current Visit: No Status: Chronic Assessment & Plan: - Continue home meds - BP stable Code(s): I10 - ESSENTIAL (PRIMARY) HYPERTENSION (7) CHF (congestive heart failure) Current Visit: Yes Status: Chronic Assessment & Plan: - Echo report pending - Pt reports he has not had an echo in the last yr. - Cardiology consult for medical clearance- reviewed note and cleared for procedure - No edema or SOB with IVF - Follows Dr. Taylor - Hold torsemide as receiving IVF d/t MOOKIE Code(s): I50.9 - HEART FAILURE, UNSPECIFIED (8) CAD (coronary artery disease) Current Visit: Yes Status: Chronic Assessment & Plan: - With hx of CABG and SD - General surgery wanting medical clearance by cardiology prior to surgery. - Cardiology consulted for clearance - Continue isosorbide, metoprolol - Plavix held for possible surgery if cleared. Code(s): I25.10 - ATHSCL HEART DISEASE OF [place] CORONARY ARTERY W/O ANG PCTRS Code(s): I25.10 - ATHSCL HEART DISEASE OF THE [place] CORONARY ARTERY W/O ANG PCTRS (9) Metabolic acidosis Current Visit: Yes Status: Acute Assessment & Plan: - CO2 17- Oral bicarb started - Eating and drinking well - May d/c if improved this afternoon - Will need OP f/u labs Code(s): E87.20 - ACIDOSIS, UNSPECIFIED - Discharge Discharge Date: 02/16/25 Disposition: Home, Self-Care Condition: Stable Prescriptions: New Hydrocodone/Acetaminophen [Hydrocodone-Acetamin 5-325 mg] 1 tab PO Q6HPRN PRN 7 Days #15 tablet MDD 4 PRN Reason: Pain Sodium Bicarbonate 650 mg PO BID 3 Days #6 tablet Continue Amlodipine Besylate 5 mg [Norvasc 5 mg] 5 mg PO DAILY 30 Days #30 tablet Aspirin EC 81 mg [Ecotrin 81 mg] 81 mg PO DAILY 30 Days #30 tablet Topiramate 25 mg [Topamax 25 MG] 50 mg PO DAILY 30 Days #60 cap Simvastatin 10 mg [Zocor 10MG] 10 mg PO DAILY 30 Days #30 tablet Metoprolol Succinate 50 mg [Toprol Xl 50 MG] 50 mg PO DAILY 30 Days #30 tablet Ezetimibe 10 mg [Zetia 10 MG] 10 mg PO DAILY Potassium Chloride 20 meq PO DAILY PANTOPRAZOLE 40 mg Tablet [Protonix 40MG Tablet] 40 mg PO BID Metformin HCl 500 mg [Glucophage 500 MG] 500 mg PO BIDWM Isosorbide Mononitrate 30 mg PO DAILY allopurinoL [Zyloprim] 200 mg PO DAILY Torsemide 20 mg [Demadex 20 mg] 20 mg PO BID Clopidogrel Bisulfate [Plavix] 75 mg PO DAILY Instructions: Cholecystectomy - Discharge instructions Additional Instructions: You may shower on POD #2 Keep drsg intact until POD #2 may keep open to air unless draining. Follow up with: NICCI CLAROS MD [Primary Care Provider, [facility]] - 02/21/25 2:45 pm NATALIE JACOBSON MD [ACTIVE STAFF, GENERAL SURGERY] - 03/01/25 8:45 am Referral Note: [facility]
[2025-02-16 12:07] VITALS: BP 154/68; PULSE 53; RESP 18; TEMP 97.5; O2SAT 94
[2025-02-16 12:36] LABS: ANION GAP 13.3 MEQ/L (5-15); Calcium 8.7 mg/dL (8.4-10.2); Creatinine 1 2.02 mg/dL (0.66-1.25); EST GLOMERULAR FILTRATION RATE 35.3 ML/MIN; Potassium 4.2 mmol/L (3.5-5.1)
--- NOTE | 2025-02-19 09:03 | OP ---
SURGERY DATE/TIME: 02/15/2025 [id number] PREOPERATIVE DIAGNOSIS: Cholecystitis. POSTOPERATIVE DIAGNOSIS: Cholecystitis. PROCEDURE: Laparoscopic cholecystectomy. SURGEON: Abdon Jacobson MD ANESTHESIA: General. ESTIMATED BLOOD LOSS: Minimal. PATIENT CONDITION: Stable. COMPLICATIONS: None. SPECIMEN: Gallbladder. INDICATIONS: Patient has actually had multiple presentations to the emergency department with abdominal pain that initially he was admitted with MOOKIE and possible nephrotic syndrome. His HIDA scan just showed reduced ejection fraction, and then he was followed up in my office where I referred him to Nephrology, but he never ever followed up with Nephrology. He never followed up with his medical doctor and then never could make it to elective cholecystectomy because he would never go in to see his medical doctors, but regardless, he presents with again an episode of upper abdominal pain and imaging that shows gallstones. His pain did improve. This is more consistent with chronic cholecystitis than acute cholecystitis. His kidney function has improved. They consulted Cardiology. His echo was satisfactory. He was medically optimized and is deemed this as good as ever to go ahead with cholecystectomy. Risk of infection, bleeding, injury to nearby structure, hernia, and failure to resolve symptoms were discussed with the patient. He elected to proceed with surgery. FINDINGS: Critical view. Stones in the gallbladder. DESCRIPTION OF PROCEDURE: The patient was brought to the operating room. General anesthesia was induced. Routinely positioned, prepped, and draped. Time-out performed. Received preoperative antibiotic. The Veress needle inserted in the left upper quadrant and pneumoperitoneum established. The 5 mm Optiview trocar placed in the left upper quadrant. The abdomen is surveyed. There are some omental adhesions to the lower midline around the umbilicus which are away from the field of the dissection. These are not pathologic in appearance in anyway. The 11 mm right paramedian trocar placed. Two additional 5 mm trocars placed in the left upper quadrant. The patient is positioned. The gallbladder is retracted. The cystic duct and cystic artery are dissected out. Critical view is clearly obtained. Both are clipped with 5 mm metal clip job boss and divided. Gallbladder was taken off the liver bed, placed in a specimen bag, and removed through the 11 trocar site. The right upper quadrant was reinspected. The clips are in good position. There is good hemostasis. The 11 trocar site closed with 0 Vicryl interrupted suture passer. The skin is closed with 4-0 Vicryl sutures. Steri-Strips and sterile dressings applied. All counts were correct. The patient tolerated the procedure well. The plan is for extubation.
== END 2025-02-16 14:25 | disposition home or self-care (01) ==
LOC: ED 16:27 → MED SURG 18:15
PROVIDERS: ADMIT Internal Medicine; ATTEND Internal Medicine
DX: K80.20 Calculus of gallbladder without cholecystitis without obstruction (principal); E11.22 Type 2 diabetes mellitus with diabetic chronic kidney disease; Z59.19 Other inadequate housing; I13.0 Hypertensive heart and chronic kidney disease with heart failure and stage 1 through stage 4 chronic kidney disease, or unspecified chronic kidney disease; N18.9 Chronic kidney disease, unspecified; I50.9 Heart failure, unspecified; N17.9 Acute kidney failure, unspecified; R11.2 Nausea with vomiting, unspecified; E78.5 Hyperlipidemia, unspecified; I25.10 Atherosclerotic heart disease of native coronary artery without angina pectoris; Z79.899 Other long term (current) drug therapy; Z95.0 Presence of cardiac pacemaker; F17.200 Nicotine dependence, unspecified, uncomplicated
CPT/HCPCS: 36415; 47562; 80048; 80053; 81001; 82570; 82947; 83036; 84156; 84484; 85025; 85027; 93005; 93041; 93306; 94760; 99285; Q3014; 93268; G0378; J0295; J0694; J1100; J1171; J1644; J1817; J1885; J2270; J2371; J2405; J2704; J3010; A9270-GY

== ENCOUNTER 2025-08-27 15:41 | Emergency (ER) | payer MEDICARE, OTHER ==
[2025-08-27 16:16] VITALS: TEMP 98.2
[2025-08-27] MEDS ORDERED: NORCO 5/325 MG PO ONE (16:24)
--- NOTE | 2025-08-27 16:24 | ERPHSYRPT ---
- History of Present Illness Time Seen by Provider: 08/27/25 16:00 Source: patient Exam Limitations: no limitations Patient Subjective Stated Complaint: patient came to ED wanting medications for back pain Triage Nursing Assessment: patient drove himeself to dr claros office nad was given new pain medication script according to patient, he has not been able to fill it yet nad he's hurting so he drove himself to ED . skin warm dry and itnact, patient is alert and orientedx4, lung sounds clear,diminished bilaterally. states this is chronic pain from his arthritis no new falls or injury. 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 Claros he denies any falls but walks with a cane denies any fevers or chills patient reports he is requiring a narcotic and is unable to fill until tomorrow Timing/Duration: today Method of Injury: unknown Quality: aching Severity of Pain-Max: mild Severity of Pain-Current: mild Allergies/Adverse Reactions: gabapentin Adverse Reaction (Verified 02/13/25 17:09) "got kind of loopy" Home Medications: Ezetimibe 10 mg [Zetia 10 MG] 10 mg PO DAILY 10/18/24 [History] Isosorbide Mononitrate 30 mg PO DAILY 10/19/24 [History] PANTOPRAZOLE 40 mg Tablet [Protonix 40MG Tablet] 40 mg PO BID 10/19/24 [History] Potassium Chloride 20 meq PO DAILY 10/19/24 [History] allopurinoL [Zyloprim] 200 mg PO DAILY 10/19/24 [History] Clopidogrel Bisulfate [Plavix] 75 mg PO DAILY 02/13/25 [History] Torsemide 20 mg [Demadex 20 mg] 20 mg PO BID 02/13/25 [History] Hx Tetanus, Diphtheria Vaccination/Date Given: No Hx Influenza Vaccination/Date Given: Yes Hx Pneumococcal Vaccination/Date Given: Yes Immunizations Up to Date: Yes Travel Risk - International Travel Have you traveled outside of the country in past 3 weeks: No - Emerging Infectious Disease Are you exhibiting symptoms associated with any current EIDs: No Symptoms: Abdominal Pain - Review of Systems Constitutional: No Fever, No Chills Eyes: No Symptoms Ears, Nose, & Throat: No Symptoms Respiratory: No Cough, No Dyspnea Cardiac: No Chest Pain, No Edema, No Syncope Abdominal/Gastrointestinal: No Abdominal Pain, No Nausea, No Vomiting, No Diarrhea Genitourinary Symptoms: No Dysuria Musculoskeletal: Back Pain, No Neck Pain Skin: No Rash Neurological: No Dizziness, No Focal Weakness, No Sensory Changes Psychological: No Symptoms Endocrine: No Symptoms All Other Systems: Reviewed and Negative - Past Medical History Pertinent Past Medical History: Yes Neurological History: No Pertinent History ENT History: No Pertinent History Cardiac History: Congestive Heart Failure, High Cholesterol, Hypertension Respiratory History: CHF, COPD, Pulmonary Embolism Endocrine Medical History: Diabetes Type II Musculoskeletal History: Osteoarthritis GI Medical History: Hernia History: Kidney Cancer Psycho-Social History: Depression Male Reproductive Disorders: No Pertinent History Other Medical History: STENT PLACEMENT AND CABG X 3, FRACTURED RIBS, GOUT, ANEMIA, CHOLECYSTECTOMY, RIGHT 4TH & 5TH TOE AMPUTATION - Past Surgical History Past Surgical History: Yes Neuro Surgical History: No Pertinent History Cardiac: CABG, Cardiac Stent Respiratory: No Pertinent History Gastrointestinal: Hernia Repair Genitourinary: No Pertinent History Musculoskeletal: Amputation Male Surgical History: No Pertinent History Other Surgical History: umbilical, triple bypass, L shoulder. polyp removal, right 4th/5th toe amputation Significant Family History: diabetes - Social History Smoking Status: Former smoker How long have you smoked: 45 years Exposure to second hand smoke: Yes Drug Use: none - Social Determinants of Health Will the patient participate in the screening: Declined to provide Do you worry about a steady place to live?: No In the past 12 months,have you had to go without utilities?: Yes Transportation Issues: No Has anyone in your support network made you feel unsafe?: No Have you or anyone in your house had to go w/o enough food: No Comment: about to move - Nursing Vital Signs Nursing Vital Signs: Initial Vital Signs Temperature 98.2 F 08/27/25 15:41 Pulse Rate 80 08/27/25 15:41 Respiratory Rate 16 08/27/25 15:41 Blood Pressure 149/80 08/27/25 15:41 O2 Sat by Pulse Oximetry 98 08/27/25 15:41 Pain Scale Pain Intensity 10 - Physical Exam General Appearance: no apparent distress, alert Eye Exam: PERRL/EOMI, eyes nml inspection Neck Exam: normal inspection, non-tender, supple, full range of motion, No meningismus, No midline tenderness Respiratory Exam: normal breath sounds, lungs clear, No respiratory distress Cardiovascular Exam: regular rate/rhythm, normal heart sounds Gastrointestinal Exam: soft, No tenderness, No mass Back Exam: muscle spasm Extremity Exam: normal inspection, normal range of motion, No calf tenderness, No pedal edema Neurologic Exam: alert, oriented x 3, cooperative, negotiator II-XII nml as tested, normal mood/affect, nml station & gait, sensation nml, No motor deficits Skin Exam: normal color, warm, dry, No rash SpO2: 98 - Progress Progress Note: 08/27/25 16:23 Patient had recent IU visit showing lumbar arthritis patient will be given a dose of narcotic here and sent home patient has a prescription already - Departure Departure Disposition: Home Clinical Impression: Back pain Qualifiers: Back pain location: back pain in unspecified location Chronicity: unspecified Back pain laterality: unspecified Qualified Code(s): M54.9 - Dorsalgia, unspecified Condition: Stable Critical Care Time: No Referrals: NICCI CLAROS MD [Primary Care Provider, [facility]] - Follow up/PCP as directed Instructions: Low Back Pain (DC), Osteoarthritis
[2025-08-27 17:10] VITALS: BP 127/69; PULSE 72; RESP 18; O2SAT 92
[2025-08-27] MEDS ORDERED: TYLENOL 325 MG ONE (17:32)
[2025-08-27] MEDS ORDERED: MOTRIN 600 MG ONE (17:32)
[2025-08-27] MEDS: MOTRIN 600 MG PO ONE (17:34)
[2025-08-27] MEDS: TYLENOL 325 MG PO STA (17:34)
== END 2025-08-27 17:44 | disposition home or self-care (01) ==
LOC: ED 15:41
DX: M54.9 Dorsalgia, unspecified (principal); I11.0 Hypertensive heart disease with heart failure; I50.9 Heart failure, unspecified; E11.9 Type 2 diabetes mellitus without complications; Z79.02 Long term (current) use of antithrombotics/antiplatelets; Z79.899 Other long term (current) drug therapy; Z59.12 Inadequate housing utilities

== ENCOUNTER 2025-09-17 17:54 | Emergency (ER) | payer MEDICARE, OTHER ==
[2025-09-17 18:10] VITALS: TEMP 97.4
--- NOTE | 2025-09-17 18:23 | ERPHSYRPT ---
- History of Present Illness Source: patient Exam Limitations: no limitations Patient Subjective Stated Complaint: PT states "I fell a couple days ago and I am still hurting on my back and my left elbow. I just hurt all over." Triage Nursing Assessment: PT presented alert and oriented X 3, skim pwd. Pt able to speak in clear full sentences. Pt has slight bruising noted to left lower back and tenderness noted to left elbow and slight bruising noted to left eye brow. Pt has an open wound on his right buttock. Hx Tetanus, Diphtheria Vaccination/Date Given: No Hx Influenza Vaccination/Date Given: Yes Hx Pneumococcal Vaccination/Date Given: Yes Immunizations Up to Date: No <ELLY WEEMS - Last Filed: 09/17/25 18:44> <DINORA LO - Last Filed: 09/18/25 06:46> - History of Present Illness Time Seen by Provider: 09/17/25 18:02 Physician History: Patient had a fall 5 days ago. He is on Plavix and aspirin. Patient states that he does not remember how he fell. States that he stood up, got to the doorway and then had a "drop". Sounds like he may have had a drop syncope. Patient was initially seen in the emergency department. However reviewing that note patient did decline all imaging and labs, was signed out AGAINST MEDICAL ADVICE. Patient went home and continued to have left elbow pain, face pain, back pain. Therefore arrives to the emergency department tonight. On my initial exam as a walk-in patient has bruising over left elbow, bruising over left eye, complains of low back pain, mid back pain. Patient also has a chronic wound on his right buttocks. Per the family, they state that he has frequent falls at home. Patient complains of a slight headache. However not overwhelming. He has not taken any pain medication to make it better or worse. (ELLY WEEMS) Allergies/Adverse Reactions: gabapentin Adverse Reaction (Verified 09/09/25 09:11) "got kind of loopy" Home Medications: Ezetimibe 10 mg [Zetia 10 MG] 10 mg PO DAILY 10/18/24 [History] Isosorbide Mononitrate 30 mg PO DAILY 10/19/24 [History] PANTOPRAZOLE 40 mg Tablet [Protonix 40MG Tablet] 40 mg PO BID 10/19/24 [History] Potassium Chloride 20 meq PO DAILY 10/19/24 [History] allopurinoL [Zyloprim] 200 mg PO DAILY 10/19/24 [History] Clopidogrel Bisulfate [Plavix] 75 mg PO DAILY 02/13/25 [History] Torsemide 20 mg [Demadex 20 mg] 20 mg PO BID 02/13/25 [History] Travel Risk - International Travel Have you traveled outside of the country in past 3 weeks: No - Emerging Infectious Disease Are you exhibiting symptoms associated with any current EIDs: No Symptoms: Abdominal Pain <ELLY WEEMS - Last Filed: 09/17/25 18:44> - Review of Systems All Other Systems: Reviewed and Negative (ROS negative outside of HPI) <ELLY WEEMS - Last Filed: 09/17/25 18:44> - Past Medical History Pertinent Past Medical History: Yes Neurological History: No Pertinent History ENT History: No Pertinent History Cardiac History: Congestive Heart Failure, High Cholesterol, Hypertension Respiratory History: CHF, COPD, Pulmonary Embolism Endocrine Medical History: Diabetes Type II Musculoskeletal History: Osteoarthritis GI Medical History: Hernia History: Kidney Cancer Psycho-Social History: Depression Male Reproductive Disorders: No Pertinent History Other Medical History: STENT PLACEMENT AND CABG X 3, FRACTURED RIBS, GOUT, ANEMIA, CHOLECYSTECTOMY, RIGHT 4TH & 5TH TOE AMPUTATION - Past Surgical History Past Surgical History: Yes Neuro Surgical History: No Pertinent History Cardiac: CABG, Cardiac Stent Respiratory: No Pertinent History Gastrointestinal: Hernia Repair Genitourinary: No Pertinent History Musculoskeletal: Amputation Male Surgical History: No Pertinent History Other Surgical History: umbilical, triple bypass, L shoulder. polyp removal, right 4th/5th toe amputation Significant Family History: diabetes - Social History Smoking Status: Current some day smoker Exposure to second hand smoke: Yes Drug Use: none - Social Determinants of Health Will the patient participate in the screening: Declined to provide <ELLY WEEMS - Last Filed: 09/17/25 18:44> - Physical Exam SpO2 Interpretation: normal SpO2: 97 <ELLY WEEMS - Last Filed: 09/17/25 18:44> - Nursing Vital Signs Nursing Vital Signs: Initial Vital Signs Temperature 97.4 F 09/17/25 18:04 Pulse Rate 80 09/17/25 18:04 Respiratory Rate 18 09/17/25 18:04 Blood Pressure 176/94 09/17/25 18:04 O2 Sat by Pulse Oximetry 97 09/17/25 18:04 Pain Scale Pain Intensity [Left Lower 4 Back] Pain Intensity 0 - Physical Exam Comments: 09/17/25 18:29 Physical Exam Vitals signs and nursing note reviewed. Constitutional: Appearance: Patient is well-developed. HENT: Head: Normocephalic and bruising over left eyebrow Eyes: Conjunctiva/sclera: Conjunctivae normal. Neck: Trachea: No tracheal deviation. Cardiovascular: Rate and Rhythm: Normal rate. Heart sounds normal Pulmonary: Effort: Pulmonary effort is normal. No respiratory distress. Abdominal: Palpations: Abdomen is soft. Musculoskeletal: General: No C-spine tenderness, some T-spine tenderness, L-spine tenderness. No step-offs or deformities. Pain over low back bilaterally. Left elbow bruising. No obvious deformity, sensation intact, 2+ capillary refill. Decree strength and range of motion secondary to pain. Compartments are soft, nontender. Overlying skin shows no tenting, bruising, ecchymosis otherwise. Skin: General: Skin is warm and dry. Neurological: Mental Status: Patient is alert and oriented to person, place, and time, behavior normal. (ELLY WEEMS) - Course Nursing assessment & vital signs reviewed: Yes <ELLY WEEMS - Last Filed: 09/17/25 18:44> - Course EKG Interpreted by Me: RATE (77), Sinus Rhythm, Left Bundle Branch Block, Non- specific ST Changes, Other (no STEMI) <DINORA LO - Last Filed: 09/18/25 06:46> Ordered Tests: Active Orders 24 hr Category Date Time Status ACO Referral ONCE Care 09/17/25 18:16 Active EKG-ER Only STAT Care 09/17/25 18:13 Completed IV Insertion STAT Care 09/17/25 18:13 Active Re-Check Vital Signs STAT Care 09/17/25 18:13 Active ABDOMEN AND PELVIS W CONTRAST [CT] Stat Exams 09/17/25 18:16 Completed CHEST WITH CONTRAST [CT] Stat Exams 09/17/25 18:15 Completed ELBOW (MINIMUM 3 VIEWS) Stat Exams 09/17/25 18:15 Completed FACIAL BONES WO CONTRAST [CT] Stat Exams 09/17/25 18:22 Completed HEAD WITHOUT CONTRAST [CT] Stat Exams 09/17/25 18:15 Completed CBC W DIFF Stat Lab 09/17/25 18:25 Completed CK-Creatinine Phosphokinase Stat Lab 09/17/25 18:25 Completed CMP Stat Lab 09/17/25 18:25 Completed CULTURE,URINE Stat Lab 09/17/25 18:30 Received LIPASE Stat Lab 09/17/25 18:25 Completed NT PRO BNPII Stat Lab 09/17/25 18:25 Completed PROTIME WITH INR Stat Lab 09/17/25 18:25 Completed TROPONIN Q3H Lab 09/18/25 04:20 Completed TROPONIN Q3H Lab 09/18/25 08:30 Ordered TROPONIN Q3H Lab 09/18/25 12:30 Ordered TROPONIN Q4H Lab 09/17/25 18:25 Completed TROPONIN Q4H Lab 09/17/25 22:00 Completed TROPONIN Q4H Lab 09/18/25 01:10 Completed UA W/RFX UR CULTURE Stat Lab 09/17/25 18:30 Completed Medication Summary Discontinued Medications Generic Name Dose Route Start Last Admin Trade Name Freq PRN Reason Stop Dose Admin Apixaban 10 mg 09/17/25 21:40 09/17/25 22:02 Apixaban 2.5 Mg Tablet PO 09/17/25 21:41 10 mg ONCE ONE Administration Sodium Chloride 500 mls @ 500 mls/hr 09/17/25 19:19 09/17/25 20:45 Sodium Chloride 0.9% 500 Ml IV 09/17/25 20:18 Infused .Q1H ONE Infusion Sodium Chloride Confirm 09/17/25 19:21 Sodium Chloride 0.9% 500 Ml Administered 09/17/25 19:22 Dose 500 mls @ ud IV .STK-MED ONE Morphine Sulfate 4 mg 09/17/25 18:28 09/17/25 18:39 Morphine Sulfate 4 Mg/Ml Injection IV 09/17/25 18:29 4 mg STAT ONE Administration Morphine Sulfate Confirm 09/17/25 18:37 Morphine Sulfate 4 Mg/Ml Injection Administered 09/17/25 18:38 Dose 4 mg .ROUTE .STK-MED ONE Morphine Sulfate 4 mg 09/17/25 21:31 09/17/25 21:38 Morphine Sulfate 4 Mg/Ml Injection IV 09/17/25 21:32 4 mg STAT ONE Administration Morphine Sulfate Confirm 09/17/25 21:33 Morphine Sulfate 4 Mg/Ml Injection Administered 09/17/25 21:34 Dose 4 mg .ROUTE .STK-MED ONE Morphine Sulfate 4 mg 09/18/25 04:26 09/18/25 04:30 Morphine Sulfate 4 Mg/Ml Injection IV 09/18/25 04:27 4 mg STAT ONE Administration Morphine Sulfate Confirm 09/18/25 04:29 Morphine Sulfate 4 Mg/Ml Injection Administered 09/18/25 04:30 Dose 4 mg .ROUTE .STK-MED ONE Lab/Rad Data: Laboratory Result Diagrams 09/17/25 18:25 09/17/25 18:25 Laboratory Results 09/18/25 09/18/25 09/17/25 Range/Units 04:20 01:10 22:00 WBC (4.23-9.07) x10^3/uL RBC (4.63-6.08) x10^6/uL Hgb (13.7-17.5) g/dL Hct (40.1-51.0) % MCV (79.0-92.2) fL MCH (25.7-32.2) pg MCHC (32.3-36.5) g/dL RDW (11.6-14.4) % Plt Count (163-337) x10^3/uL MPV (9.4-12.4) fL Gran % (34.0-67.9) % Immature Gran % (Auto) (0.001-0.429) % Nucleat RBC Rel Count (0.00-0.2) % Eos # (Auto) (0.04-0.54) x10^3/uL Immature Gran # (Auto) (0.001-0.031) x10^3u/L Absolute Lymphs (auto) (1.32-3.57) x10^3/uL Absolute Monos (auto) (0.30-0.82) x10^3/uL Absolute Nucleated RBC (0.00-0.012) x10^3u/L Lymphocytes % (21.8-53.1) % Monocytes % (5.3-12.2) % Eosinophils % (0.8-7.0) % Basophils % (0.2-1.2) % Absolute Granulocytes (1.78-5.38) x10^3/uL Basophils # (0.01-0.08) x10^3/uL PT (9.4-12.5) SECONDS INR (0.8-3.0) Sodium (135-145) mmol/L Potassium (3.5-5.1) mmol/L Chloride (98-107) mmol/L Carbon Dioxide (22-30) mmol/L Anion Gap (5-15) MEQ/L BUN (9-20) mg/dL Creatinine (0.66-1.25) mg/dL Estimated GFR ML/MIN Glucose (74-106) mg/dL Calcium (8.4-10.2) mg/dL Total Bilirubin (0.2-1.3) mg/dL AST (17-59) U/L ALT (0-50) U/L Alkaline Phosphatase (38-126) U/L Creatine Kinase (55-170) U/L Troponin I 0.042 H* 0.043 H* 0.042 H* (0.000-0.033) ng/mL NT-Pro-B Natriuret Pep (<300) pg/mL Serum Total Protein (6.3-8.2) g/dL Albumin (3.5-5.0) g/dL Lipase (23-300) U/L Urine Color (Yellow) Urine Appearance (Clear) Urine pH (4.6-8.0) Ur Specific [place] (1.005-1.030) Urine Protein (Negative) Urine Glucose (UA) (Negative) mg/dL Urine Ketones (Negative) Urine Blood (Negative) Urine Nitrite (Negative) Urine Bilirubin (Negative) Urine Urobilinogen (0.2) mg/dL Ur Leukocyte Esterase (Negative) U Hyaline Cast (Auto) (0-2) /LPF Urine Microscopic RBC (0-5) /HPF Urine Microscopic WBC (0-5) /HPF Ur Epithelial Cells (None Seen) /HPF Urine Bacteria (None Seen) /HPF Urine Culture Reflexed (NO) 09/17/25 09/17/25 09/17/25 Range/Units 18:30 18:25 18:25 WBC (4.23-9.07) x10^3/uL RBC (4.63-6.08) x10^6/uL Hgb (13.7-17.5) g/dL Hct (40.1-51.0) % MCV (79.0-92.2) fL MCH (25.7-32.2) pg MCHC (32.3-36.5) g/dL RDW (11.6-14.4) % Plt Count (163-337) x10^3/uL MPV (9.4-12.4) fL Gran % (34.0-67.9) % Immature Gran % (Auto) (0.001-0.429) % Nucleat RBC Rel Count (0.00-0.2) % Eos # (Auto) (0.04-0.54) x10^3/uL Immature Gran # (Auto) (0.001-0.031) x10^3u/L Absolute Lymphs (auto) (1.32-3.57) x10^3/uL Absolute Monos (auto) (0.30-0.82) x10^3/uL Absolute Nucleated RBC (0.00-0.012) x10^3u/L Lymphocytes % (21.8-53.1) % Monocytes % (5.3-12.2) % Eosinophils % (0.8-7.0) % Basophils % (0.2-1.2) % Absolute Granulocytes (1.78-5.38) x10^3/uL Basophils # (0.01-0.08) x10^3/uL PT 10.4 (9.4-12.5) SECONDS INR 0.93 (0.8-3.0) Sodium (135-145) mmol/L Potassium (3.5-5.1) mmol/L Chloride (98-107) mmol/L Carbon Dioxide (22-30) mmol/L Anion Gap (5-15) MEQ/L BUN (9-20) mg/dL Creatinine (0.66-1.25) mg/dL Estimated GFR ML/MIN Glucose (74-106) mg/dL Calcium (8.4-10.2) mg/dL Total Bilirubin (0.2-1.3) mg/dL AST (17-59) U/L ALT (0-50) U/L Alkaline Phosphatase (38-126) U/L Creatine Kinase (55-170) U/L Troponin I 0.033 (0.000-0.033) ng/mL NT-Pro-B Natriuret Pep (<300) pg/mL Serum Total Protein (6.3-8.2) g/dL Albumin (3.5-5.0) g/dL Lipase (23-300) U/L Urine Color Yellow (Yellow) Urine Appearance Clear (Clear) Urine pH 6.0 (4.6-8.0) Ur Specific [place] 1.015 (1.005-1.030) Urine Protein 300 A (Negative) Urine Glucose (UA) 100 A (Negative) mg/dL Urine Ketones Negative (Negative) Urine Blood Trace (Negative) Urine Nitrite Negative (Negative) Urine Bilirubin Negative (Negative) Urine Urobilinogen 1.0 A (0.2) mg/dL Ur Leukocyte Esterase Negative (Negative) U Hyaline Cast (Auto) NONE SEEN (0-2) /LPF Urine Microscopic RBC 0-2 (0-5) /HPF Urine Microscopic WBC 0-2 (0-5) /HPF Ur Epithelial Cells None Seen (None Seen) /HPF Urine Bacteria None Seen (None Seen) /HPF Urine Culture Reflexed YES (NO) 09/17/25 09/17/25 Range/Units 18:25 18:25 WBC 7.1 (4.23-9.07) x10^3/uL RBC 3.87 L (4.63-6.08) x10^6/uL Hgb 11.4 L (13.7-17.5) g/dL Hct 36.5 L (40.1-51.0) % MCV 94.3 H (79.0-92.2) fL MCH 29.5 (25.7-32.2) pg MCHC 31.2 L (32.3-36.5) g/dL RDW 13.8 (11.6-14.4) % Plt Count 164 (163-337) x10^3/uL MPV 12.5 H (9.4-12.4) fL Gran % 81.3 H (34.0-67.9) % Immature Gran % (Auto) 0.3 (0.001-0.429) % Nucleat RBC Rel Count 0.0 (0.00-0.2) % Eos # (Auto) 0.13 (0.04-0.54) x10^3/uL Immature Gran # (Auto) 0.02 (0.001-0.031) x10^3u/L Absolute Lymphs (auto) 0.76 L (1.32-3.57) x10^3/uL Absolute Monos (auto) 0.41 (0.30-0.82) x10^3/uL Absolute Nucleated RBC 0.00 (0.00-0.012) x10^3u/L Lymphocytes % 10.7 L (21.8-53.1) % Monocytes % 5.8 (5.3-12.2) % Eosinophils % 1.8 (0.8-7.0) % Basophils % 0.1 L (0.2-1.2) % Absolute Granulocytes 5.80 H (1.78-5.38) x10^3/uL Basophils # 0.01 (0.01-0.08) x10^3/uL PT (9.4-12.5) SECONDS INR (0.8-3.0) Sodium 139 (135-145) mmol/L Potassium 5.1 (3.5-5.1) mmol/L Chloride 111 H (98-107) mmol/L Carbon Dioxide 18 L (22-30) mmol/L Anion Gap 15.5 H (5-15) MEQ/L BUN 66 H (9-20) mg/dL Creatinine 2.60 H (0.66-1.25) mg/dL Estimated GFR 25.9 ML/MIN Glucose 246 H (74-106) mg/dL Calcium 8.9 (8.4-10.2) mg/dL Total Bilirubin 0.40 (0.2-1.3) mg/dL AST 24 (17-59) U/L ALT 19 (0-50) U/L Alkaline Phosphatase 129 H (38-126) U/L Creatine Kinase 88 (55-170) U/L Troponin I (0.000-0.033) ng/mL NT-Pro-B Natriuret Pep 9040 (<300) pg/mL Serum Total Protein 6.6 (6.3-8.2) g/dL Albumin 3.7 (3.5-5.0) g/dL Lipase 75 (23-300) U/L Urine Color (Yellow) Urine Appearance (Clear) Urine pH (4.6-8.0) Ur Specific [place] (1.005-1.030) Urine Protein (Negative) Urine Glucose (UA) (Negative) mg/dL Urine Ketones (Negative) Urine Blood (Negative) Urine Nitrite (Negative) Urine Bilirubin (Negative) Urine Urobilinogen (0.2) mg/dL Ur Leukocyte Esterase (Negative) U Hyaline Cast (Auto) (0-2) /LPF Urine Microscopic RBC (0-5) /HPF Urine Microscopic WBC (0-5) /HPF Ur Epithelial Cells (None Seen) /HPF Urine Bacteria (None Seen) /HPF Urine Culture Reflexed (NO) - Progress Progress: improved Counseled pt/family regarding: lab results, diagnosis, need for follow-up, rad results <ELLY WEEMS - Last Filed: 09/17/25 18:44> <DINORA LO - Last Filed: 09/18/25 06:46> - Progress Progress Note: 09/17/25 18:30 Differential diagnosis includes head bleed, facial fracture, T-spine, L-spine fracture, elbow fracture, other traumatic injury. This includes internal traumatic bleeding, skull fractures, other trauma. Patient will need to be worked up for syncope and traumatic injury. Will obtain EKG, basic labs, troponins, head CT, CTA chest abdomen pelvis, x-ray of left elbow. Will also give patient pain control. Patient be hooked up to [place], continued close cardiac monitoring. 09/17/25 18:45 Handoff of care to Dr. Lo at 7 PM. He will follow-up on all labs and imaging. Ultimate disposition per reexam, labs, imaging. (ELLY WEEMS) 09/17/25 20:45 Again age-appropriate global atrophy, mild periventricular degenerative micro-ischemia, left basal ganglia remote lacunar infarcts, and small remote infarct right mid smith radiata. No acute intracranial hemorrhage, abnormal extra-axial fluid collection, or mass effect. Fourth ventricle is midline bony calvarium intact. Visualized paranasal sinuses and mastoid air cells are clear. Impression: Continued nonacute senile brain with tiny remote infarcts as detailed. 09/17/25 20:45 3 view left elbow demonstrates osteopenia and small fragmented bony spurring medial epicondyle/posterior olecranon process. No acute bony, articular, or soft tissue abnormalities. 09/17/25 20:48 Multiple contiguous axial images obtained through the facial bones. Sagittal and coronal reformatted images obtained. Comparison: None Osseous structures demineralized. No acute fracture, suspicious bony lesions, or radiopaque foreign body. Orbits including roof, rodrigues, and floors intact. Paranasal sinuses and nasal passages are clear. Patient edentulous. Visualized cervical spine demonstrates mild degenerative spondylosis. Visualized noncontrasted soft tissues a demonstrates mild bilateral carotid calcifications. Impression: Chronic findings including osteopenia, cervical degenerative spondylosis, and carotid calcifications. Remaining CT facial bones normal. 09/17/25 20:58 Imaging Report Continued Page: Name: ESTEFANIA CLEMENTS Procedure Date: 09/17/25 Procedures: [id number] CT/CHEST WITH CONTRAST Technologist: Tatiana Mata Transcribed: 09/17/252054 Vocational Rehabilitation Consultant: ROMIE WEIR Printed: 09/17/252054 Page: Imaging Report [~ rep ct labl] Technologist: Tatiana Will Transcribed: 09/17/252054 Vocational Rehabilitation Consultant: ROMIE WEIR Printed: 09/17/252054 Page: Imaging Report [~ rep ct labl] [address] [place], [place] [address] Name: ESTEFANIA CLEMENTS Attending Physician: Ordering Physician: ELLY WEEMS IMAGING REPORT : [id number] Age: 70 Sex: M Location: ED Report #: [id number] Exam Date: 09/17/25 Status: REG ER Procedures: [id number] CT/CHEST WITH CONTRAST Indication: Fall. Syncope. History of PE. Multiple contiguous axial images obtained through the chest using 80 cc Isovue 370 contrast and PE protocol. Comparison: CT chest without contrast May 19, 2025. Good opacification pulmonary arteries to include lobar and segmental branches. Tiny nonoccluding pulmonary emboli seen in proximal right lower lobe and lesser degree proximal posterior/medial segmental branches. Additional tiny nonoccluding pulmonary emboli in medial segmental right middle lobe and proximal right upper lobe. Heart not enlarged again with CABG. Aorta again demonstrates minimal scattered calcifications without aneurysm/dissection. Stable small subcarinal and right hilar calcified nodes. No pathologic mediastinal/hilar lymphadenopathy.. Lungs again demonstrates minimal bilateral dependent atelectasis, minimal lingula subsegmental atelectasis/scarring, tiny right lower lobe calcified granulomas. No new pulmonary mass/nodule, infiltrate, or effusion. Bony thorax intact again with osteopenia, minimal/mild degenerative changes throughout spine, and sternotomy wires. CT abdomen/pelvis reported separately. Impression: 1. Tiny nonoccluding pulmonary emboli in right upper, middle, and lower lobes. No distal pulmonary infarct. 2. Again chronic findings including arteriosclerotic disease, CABG, osteopenia, degenerative spondylosis, and old granulomatous disease. Reported by: ROMIE WEIR DO Signed by: ROMIE WEIR DO Signed date/time: 09/17/252054 Copies to: NICCI CLAROS JOHN F. 09/17/25 21:17 [id number] CT/ABDOMEN AND PELVIS W CONTRAST Indication: Fall. Back pain. Multiple contiguous axial images obtained through the abdomen and pelvis using 80 cc Isovue 370 contrast. Comparison: CT abdomen/pelvis without contrast May 19, 2025. CT chest reported separately. Noncontrasted stomach and bowel loops appear nonobstructed. Again distal descending/proximal sigmoid diverticulosis without diverticulitis ,a few chronic pancreatitis calcifications, and cholecystectomy. No free fluid/air. Remaining liver, pancreas, spleen, adrenal glands, kidneys, ureters, and bladder are unremarkable. There remains mild scattered aortoiliac calcifications without AAA. No pathologic retroperitoneal lymphadenopathy. Osseous structures intact again demonstrates osteopenia, mild/moderate multilevel degenerative spondylosis, mild lumbar levoscoliosis, and mild degenerative changes both hips. Impression: 1. Again chronic findings including colonic diverticulosis, chronic pancreatitis calcifications, arteriosclerotic disease, osteopenia, multilevel degenerative spondylosis, levoscoliosis, and degenerative changes both hips. 2. Remaining CT abdomen/pelvis with contrast exam is negative. 09/17/25 22:[address] Taylor from [facility] cardiology patient was given Eliquis he is found to have tiny nonoccluding pulmonary emboli in right upper middle and lower lobes patient's second troponin was slightly elevated we will trend the third troponin will speak to cardiology patient will need to be admitted at this time 09/18/25 00:58 Discussed the case with Dr. Robb who accepts the patient for transfer to [facility] awaiting bed 09/18/25 02:24 Patient's third troponin seems to have leveled out as it is minimally changed from the second troponin we will continue to trend the changes if there is a large delta patient will need to be started on IV heparin 09/18/25 06:45 Patient's third troponin has stabilized we will continue to trend at this time we will hold off on the heparin patient will need to be transferred for the PE as well as the elevated troponin patient's flight coordinator Dr. Taylor awaiting bed assignment. Case has been signed out to the next provider Dr. Turner awaiting disposition 09/18/25 06:46 (DINORA LO) - Departure Critical Care Time: No <ELLY WEEMS - Last Filed: 09/17/25 18:44> - Departure Departure Disposition: Transfer Critical Care Time: No <DINORA LO - Last Filed: 09/18/25 06:46> - Departure Clinical Impression: Elevated troponin Fall at home Qualifiers: Encounter type: initial encounter Qualified Code(s): W19.XXXA - Unspecified fall, initial encounter Facial bruising Qualifiers: Encounter type: initial encounter Qualified Code(s): S00.83XA - Contusion of other part of head, initial encounter Acute back pain Qualifiers: Back pain location: back pain in unspecified location Back pain laterality: u nspecified Qualified Code(s): M54.9 - Dorsalgia, unspecified Pulmonary embolism Qualifiers: Pulmonary embolism type: unspecified Chronicity: acute Acute cor pulmonale presence: unspecified Qualified Code(s): I26.99 - Other pulmonary embolism without acute cor pulmonale Condition: Stable Referrals: NICCI CLAROS MD [Primary Care Provider, [facility]] - Follow up/PCP as directed
[2025-09-17 18:32] LABS: BASOPHIL % 0.1 % (0.2-1.2); Basophil (Absolute #) 0.01 x10^3/uL (0.01-0.08); Eosinophil (Absolute #) 0.13 x10^3/uL (0.04-0.54); Hematocrit 36.5 % (40.1-51.0); Hemoglobin 11.4 g/dL (13.7-17.5); IMMATURE GRAN # 0.02 x10^3u/L (0.001-0.031); IMMATURE GRAN % 0.3 % (0.001-0.429); Lymphocyte (Absolute #) 0.76 x10^3/uL (1.32-3.57); Mean Corpuscular Hemoglobin 29.5 pg (25.7-32.2); Mean Corpuscular Hgb Concent. 31.2 g/dL (32.3-36.5); Monocyte (Absolute #) 0.41 x10^3/uL (0.30-0.82); NUCLEATED RBC # 0.00 x10^3u/L (0.00-0.012); NUCLEATED RBC % 0.0 % (0.00-0.2); Platelet Count 164 x10^3/uL (163-337); Red Blood Count 3.87 x10^6/uL (4.63-6.08); White Blood Count 7.1 x10^3/uL (4.23-9.07)
[2025-09-17 18:35] LABS: Glucose, Urine 100 mg/dL (Negative); Protein,Urine Dip 300 (Negative); RBC 0-2 /HPF (0-5); WBC 0-2 /HPF (0-5)
[2025-09-17] MEDS ORDERED: MORPHINE SULFATE 4 MG INJ ONE ×2 (18:37→21:33)
[2025-09-17] MEDS: MORPHINE SULFATE 4 MG INJ IV ONE ×2 (18:39→21:38)
[2025-09-17 18:46] LABS: INR 0.93 (0.8-3.0); PROTIME 10.4 SECONDS (9.4-12.5)
[2025-09-17 18:54] LABS: CK-Creatinine Phosphokinase 88.0 U/L (55-170); Calcium 8.9 mg/dL (8.4-10.2); Carbon Dioxide 18.0 mmol/L (22-30); Creatinine 1 2.6 mg/dL (0.66-1.25); EST GLOMERULAR FILTRATION RATE 25.9 ML/MIN; Glucose 246.0 mg/dL (74-106); Potassium 5.1 mmol/L (3.5-5.1); SGOT/AST 24.0 U/L (17-59); SGPT/ALT 19.0 U/L (0-50); Total Protein 6.6 g/dL (6.3-8.2)
--- NOTE | 2025-09-17 20:30 | XRAY ---
Indication: Fall. Bruising left orbit. Multiple contiguous axial images obtained through the head without contrast. Comparison: May 17, 2024 Again age-appropriate global atrophy, mild periventricular degenerative micro-ischemia, left basal ganglia remote lacunar infarcts, and small remote infarct right mid smith radiata. No acute intracranial hemorrhage, abnormal extra-axial fluid collection, or mass effect. Fourth ventricle is midline bony calvarium intact. Visualized paranasal sinuses and mastoid air cells are clear. Impression: Continued nonacute senile brain with tiny remote infarcts as detailed.
--- NOTE | 2025-09-17 20:32 | XRAY ---
Indication: Pain following fall. Comparison: None 3 view left elbow demonstrates osteopenia and small fragmented bony spurring medial epicondyle/posterior olecranon process. No acute bony, articular, or soft tissue abnormalities.
--- NOTE | 2025-09-17 20:46 | XRAY ---
Indication: Fall. Bruise left orbit. Multiple contiguous axial images obtained through the facial bones. Sagittal and coronal reformatted images obtained. Comparison: None Osseous structures demineralized. No acute fracture, suspicious bony lesions, or radiopaque foreign body. Orbits including roof, rodrigues, and floors intact. Paranasal sinuses and nasal passages are clear. Patient edentulous. Visualized cervical spine demonstrates mild degenerative spondylosis. Visualized noncontrasted soft tissues a demonstrates mild bilateral carotid calcifications. Impression: Chronic findings including osteopenia, cervical degenerative spondylosis, and carotid calcifications. Remaining CT facial bones normal.
--- NOTE | 2025-09-17 20:56 | XRAY ---
Indication: Fall. Syncope. History of PE. Multiple contiguous axial images obtained through the chest using 80 cc Isovue 370 contrast and PE protocol. Comparison: CT chest without contrast May 19, 2025. Good opacification pulmonary arteries to include lobar and segmental branches. Tiny nonoccluding pulmonary emboli seen in proximal right lower lobe and lesser degree proximal posterior/medial segmental branches. Additional tiny nonoccluding pulmonary emboli in medial segmental right middle lobe and proximal right upper lobe. Heart not enlarged again with CABG. Aorta again demonstrates minimal scattered calcifications without aneurysm/dissection. Stable small subcarinal and right hilar calcified nodes. No pathologic mediastinal/hilar lymphadenopathy.. Lungs again demonstrates minimal bilateral dependent atelectasis, minimal lingula subsegmental atelectasis/scarring, tiny right lower lobe calcified granulomas. No new pulmonary mass/nodule, infiltrate, or effusion. Bony thorax intact again with osteopenia, minimal/mild degenerative changes throughout spine, and sternotomy wires. CT abdomen/pelvis reported separately. Impression: 1. Tiny nonoccluding pulmonary emboli in right upper, middle, and lower lobes. No distal pulmonary infarct. 2. Again chronic findings including arteriosclerotic disease, CABG, osteopenia, degenerative spondylosis, and old granulomatous disease.
--- NOTE | 2025-09-17 21:13 | XRAY ---
Indication: Fall. Back pain. Multiple contiguous axial images obtained through the abdomen and pelvis using 80 cc Isovue 370 contrast. Comparison: CT abdomen/pelvis without contrast May 19, 2025. CT chest reported separately. Noncontrasted stomach and bowel loops appear nonobstructed. Again distal descending/proximal sigmoid diverticulosis without diverticulitis ,a few chronic pancreatitis calcifications, and cholecystectomy. No free fluid/air. Remaining liver, pancreas, spleen, adrenal glands, kidneys, ureters, and bladder are unremarkable. There remains mild scattered aortoiliac calcifications without AAA. No pathologic retroperitoneal lymphadenopathy. Osseous structures intact again demonstrates osteopenia, mild/moderate multilevel degenerative spondylosis, mild lumbar levoscoliosis, and mild degenerative changes both hips. Impression: 1. Again chronic findings including colonic diverticulosis, chronic pancreatitis calcifications, arteriosclerotic disease, osteopenia, multilevel degenerative spondylosis, levoscoliosis, and degenerative changes both hips. 2. Remaining CT abdomen/pelvis with contrast exam is negative.
[2025-09-17] MEDS: ELIQUIS 2.5 MG TABLET PO ONE (22:02)
[2025-09-18] MEDS ORDERED: MORPHINE SULFATE 4 MG INJ ONE ×2 (04:29→13:26)
[2025-09-18] MEDS: MORPHINE SULFATE 4 MG INJ IV ONE ×2 (04:30→13:28)
[2025-09-18] MEDS ORDERED: BABY ASPIRIN 81 MG CHEW ONE (08:55)
[2025-09-18] MEDS ORDERED: PLAVIX Tablet ONE (08:55)
[2025-09-18] MEDS ORDERED: Klor Con ONE (08:55)
[2025-09-18] MEDS ORDERED: Protonix 40MG Tablet ONE (08:55)
[2025-09-18] MEDS: Zetia 10 MG PO ONE (09:50)
[2025-09-18] MEDS: Imdur 30 MG PO ONE (09:50)
[2025-09-18] MEDS: Protonix 40MG Tablet PO ONE (09:50)
[2025-09-18] MEDS: Klor Con PO ONE (09:50)
[2025-09-18] MEDS: DEMADEX 20 MG PO ONE (09:51)
[2025-09-18] MEDS: PLAVIX Tablet PO ONE (09:51)
[2025-09-18] MEDS: BABY ASPIRIN 81 MG CHEW PO ONE (09:54)
[2025-09-18 18:35] VITALS: PULSE 79; RESP 20; O2SAT 94
[2025-09-18 19:15] VITALS: BP 140/72
== END 2025-09-18 17:00 | disposition short-term general hospital (02) ==
LOC: ED 17:54
DX: S00.83XA Contusion of other part of head, initial encounter (principal); W19.XXXA Unspecified fall, initial encounter; I26.99 Other pulmonary embolism without acute cor pulmonale; M54.9 Dorsalgia, unspecified; R77.8 Other specified abnormalities of plasma proteins; I11.0 Hypertensive heart disease with heart failure; I50.9 Heart failure, unspecified; M25.522 Pain in left elbow; R51.9 Headache, unspecified; R29.6 Repeated falls; E11.9 Type 2 diabetes mellitus without complications; Z79.02 Long term (current) use of antithrombotics/antiplatelets; Z79.899 Other long term (current) drug therapy; Z72.0 Tobacco use